=== PATIENT | female | born 1975 | race Caucasian/White ===

== ENCOUNTER → 2017-11-16 12:25 | Outpatient (CLI) | payer BC, MEDICAID, SELFPAY ==
--- NOTE | 2017-11-16 12:28 | HPBI_ITS ---
MAMMOGRAPHY - BILATERAL SCREENING REASON FOR EXAM: Female, 42 years old. Routine annual screening examination. PERTINENT HISTORY: Grandmother with breast cancer. TECHNIQUE: Digital bilateral breast raheem (3D mammographic acquisition) in the CC and MLO projections. 2-D mediolateral oblique (MLO) and craniocaudad (CC) views of both breasts were obtained. CAD: Full Field Digital Mammography with Computer Added Detection was performed. COMPARISON: Comparison is made with prior outside examination dated November 05, 2016. FINDINGS: Breast Composition: The breasts are heterogeneously dense, which may obscure small masses. There are no dominant masses or suspicious calcifications. No other significant abnormalities are identified. There has been no significant change since the prior study. HPBI/SCREENING MAMM (CAD), BILAT IMPRESSION: Stable bilateral screening mammogram. Yearly follow-up mammogram recommended. (A) ASSESSMENT CATEGORY: BIRADS Category 1: Negative. A letter regarding these results will be sent to the patient by the facility within 30 days. Approximately 10% of breast cancers are not detected by mammography. A normal mammogram should not delay biopsy of a clinically suspicious abnormality. [id number] Electronically Signed: Todd Espinosa MD at 14:09 EST Tel [phone], Service support ,
== END ==
PROVIDERS: Family Provider Family Medicine; PCP Family Medicine; Visit Provider Obstetrics & Gynecology
DX: Z12.31 Encounter for screening mammogram for malignant neoplasm of breast (principal)
CPT/HCPCS: 77063; 77067

== ENCOUNTER → 2018-04-21 10:07 | Outpatient (CLI) | payer MEDICAID, SELFPAY ==
--- NOTE | 2018-04-21 10:14 | MRI_ITS ---
STUDY: BILATERAL BREAST MR WITHOUT AND WITH CONTRAST REASON FOR EXAM: Female, 42 years old. Bilateral breast pain. Dense breast tissue. TECHNIQUE: Multi-sequence multi-echo imaging of both breasts was performed with a dedicated breast coil. T1-weighted and T2-weighted images were performed before the administration of contrast. T1-weighted images were also performed after the administration of 7 mL of Gadavist contrast intravenously without complications. COMPARISON: Bilateral mammograms dated November 16, 2017, breast ultrasound dated November 13, 2016 and bilateral mammograms November 05, 2016 FINDINGS: RIGHT BREAST: The breast tissue is heterogeneously dense with minimal background enhancement. There are no abnormal enhancing masses or areas of non-mass enhancement in the right breast. LEFT BREAST: The breast tissue is heterogeneously dense with minimal background enhancement. There are no abnormal enhancing masses or areas of non-mass enhancement in the left breast. There are no enlarged or abnormal lymph nodes. There is no abnormality in the visualized regions of the chest or liver. MRI/Breast w/o and/or W Cont Bilat IMPRESSION: No significant abnormality noted on the bilateral breast MRI study with contrast. Yearly follow-up screening mammogram recommended. CATEGORY: BIRADS Category 2: Benign. A letter regarding these results will be sent to the patient by the facility within 30 days. Electronically Signed: Farzad Hackett MD at 13:08 EDT , Service support ,
== END ==
PROVIDERS: Family Provider Family Medicine; PCP Family Medicine; Visit Provider Obstetrics & Gynecology
DX: N64.4 Mastodynia (principal); Z80.3 Family history of malignant neoplasm of breast
CPT/HCPCS: 77059; A9585; A4216; C8908

== ENCOUNTER → 2018-10-28 15:19 | Outpatient (CLI) | payer MEDICAID, SELFPAY ==
[2017-08-15 22:34] VITALS: BMI 22.4
== END ==
PROVIDERS: Family Provider Family Medicine; PCP Family Medicine; Referring Provider Otolaryngology Otolaryngology/Facial Plastic Surgery; Visit Provider Otolaryngology Otolaryngology/Facial Plastic Surgery
DX: J32.9 Chronic sinusitis, unspecified (principal)
CPT/HCPCS: 87070; 87205

== ENCOUNTER → 2018-11-22 11:09 | Outpatient (CLI) | payer MEDICAID, SELFPAY ==
[2017-08-15 22:34] VITALS: BMI 22.4
--- NOTE | 2018-11-22 11:15 | BI_ITS ---
MAMMOGRAPHY - BILATERAL SCREENING REASON FOR EXAM: Female, 43 years old. Routine annual screening examination. PERTINENT HISTORY: Grandmother with breast cancer. TECHNIQUE: Digital bilateral breast raheem (3D mammographic acquisition) in the CC and MLO projections. 2-D mediolateral oblique (MLO) and craniocaudad (CC) views of both breasts were obtained. CAD: Full Field Digital Mammography with Computer Added Detection was performed. COMPARISON: Comparison is made with prior examination of November 16, 2017 and outside examination dated November 05, 2016. FINDINGS: Breast Composition: The breasts are extremely dense, which lowers the sensitivity of mammography. There are no dominant masses or suspicious calcifications. No other significant abnormalities are identified. There has been no significant change since the prior study. BI/SCREENING MAMM (CAD), BILAT IMPRESSION: Stable bilateral screening mammogram. Yearly follow-up mammogram recommended. (A) ASSESSMENT CATEGORY: BIRADS Category 1: Negative. A letter regarding these results will be sent to the patient by the facility within 30 days. Approximately 10% of breast cancers are not detected by mammography. A normal mammogram should not delay biopsy of a clinically suspicious abnormality. [id number] Electronically Signed: Todd Espinosa MD at 13:19 EST , Service support ,
== END ==
PROVIDERS: Family Provider Family Medicine; PCP Family Medicine; Referring Provider Obstetrics & Gynecology; Visit Provider Obstetrics & Gynecology
DX: Z12.31 Encounter for screening mammogram for malignant neoplasm of breast (principal)
CPT/HCPCS: 77063; 77067

== ENCOUNTER → 2019-11-29 12:55 | Outpatient (CLI) | payer MEDICAID, SELFPAY ==
--- NOTE | 2019-11-29 13:06 | BI_ITS ---
MAMMOGRAPHY - BILATERAL SCREENING REASON FOR EXAM: Female, 44 years old. Routine annual screening examination. PERTINENT HISTORY: Grandmother with breast cancer. TECHNIQUE: Digital bilateral breast destiny (3D mammographic acquisition) in the CC and MLO projections. 2-D mediolateral oblique (MLO) and craniocaudad (CC) views of both breasts were obtained. CAD: Full Field Digital Mammography with Computer Added Detection was performed. COMPARISON: Comparison is made with prior study dated November 22, 2018 and November 16, 2017. FINDINGS: Breast Composition: The breasts are extremely dense, which lowers the sensitivity of mammography. There are no dominant masses or suspicious calcifications. No other significant abnormalities are identified. There has been no significant change since the prior study. BI/SCREEN MAMM (CAD) W/DESTINY BILAT IMPRESSION: Stable bilateral screening mammogram. Yearly follow-up mammogram recommended. (A) ASSESSMENT CATEGORY: BIRADS Category 1: Negative. A letter regarding these results will be sent to the patient by the facility within 30 days. Approximately 10% of breast cancers are not detected by mammography. A normal mammogram should not delay biopsy of a clinically suspicious abnormality. [id number] Electronically Signed: Todd Espinosa, at 14:01 EST , Service support ,
== END ==
PROVIDERS: Family Provider Family Medicine; PCP Family Medicine; Referring Provider Obstetrics & Gynecology; Visit Provider Obstetrics & Gynecology
DX: Z12.31 Encounter for screening mammogram for malignant neoplasm of breast (principal)
CPT/HCPCS: 77063; 77067

== ENCOUNTER 2020-11-25 13:50 | Observation (INO) | payer MEDICAID, SELFPAY ==
[2020-11-25] VITALS (8 sets, daily range): BP systolic 121–154; BP diastolic 72–87; PULSE 61–80; RESP 16–20; TEMP 36.7–36.9; O2SAT 97–99; BMI 25.5; BMI 23.3
--- NOTE | 2020-11-25 13:59 | EKG12_ITS ---
Test Reason : NUMBNESS/TINGLING Blood Pressure : / mmHG Vent. Rate : 059 BPM Atrial Rate : 059 BPM P-R Int : 168 ms QRS Dur : 082 ms QT Int : 426 ms P-R-T Axes : 037 -05 030 degrees QTc Int : 421 ms Sinus bradycardia Otherwise normal ECG Confirmed by JAYY RAMOS, WAI ([id number]), news videotape editor JOANA CESPEDES ([id number]) on 11/27/2020 10:32:51 AM Referred By: DAYAN Confirmed By:WAI HOPE MD
--- NOTE | 2020-11-25 13:59 | CT_ITS ---
STUDY: CT HEAD STROKE PROTOCOL W/O CONTRAST INJECTION REASON FOR EXAM: Female, 45 years old. Neuro deficit, acute, stroke suspected RADIATION DOSAGE (If Supplied By Facility): CTDIvol = ( ) mGy, DLP = ( ) mGycm TECHNIQUE: Transaxial CT imaging of the brain was performed without administration of intravenous contrast material. Individualized dose optimization techniques were used for this CT. COMPARISON: No relevant priors. FINDINGS: Normal soft tissue structures. Normal calvarium. Normal size ventricles and extra-axial spaces for the patient''s age. Normal white matter tracts of the cerebral hemispheres. Normal basal ganglia and thalami. Normal brainstem. Normal cerebellum. There is no intracranial hemorrhage. There are no findings of an acute ischemic infarction. There is minimal opacification of the ethmoid sinuses consistent with a history of sinusitis. CT/STROKE Brain/Head without Cont IMPRESSION: No acute intracranial process. N.B. : The above information has been verbally conveyed by Mica Coombs MD to Jocelyne Cortes MD, on 11/25/2020 14:29:43 (ET). Electronically Signed: Mica Coombs MD at 14:30 EST Tel , Service support ,
--- NOTE | 2020-11-25 13:59 | RAD_ITS ---
STUDY: X-RAY CHEST REASON FOR EXAM: Female, 45 years old. Neuro deficit, acute, stroke suspected TECHNIQUE: Single frontal view of the chest. COMPARISON: 08/15/2017 FINDINGS: There is no new focal consolidation. Normal size heart. Normal mediastinum and kaylah. Normal visualized pulmonary arteries. Normal visualized aortic arch and descending thoracic aorta. Normal visualized thoracic spine. Normal visualized ribs, clavicles, and shoulders. There is no demonstrated abnormality of the visualized soft tissue structures of the upper abdomen. RAD/Chest 1 View IMPRESSION: No acute cardiopulmonary process. Electronically Signed: Mica Coombs MD at 14:26 EST Tel , Service support ,
[2020-11-25 14:00] LABS: Bedside Glucose 89 mg/dL (70-110)
[2020-11-25 14:07] LABS: Absolute Lymphocyte Count 2.42 X10^3/uL (0.83-4.51); Absolute Neutrophil Count 2.5 X10^3/uL (2.0-7.7); Basophil# 0.04 X10^3/uL; Basophil% 0.7 % (0-1); Eosinophil# 0.31 X10^3/uL; Eosinophils% 5.3 % (0-5); Hemoglobin 13.3 g/dL (12.0-15.0); Lymphocyte # 2.42 X10^3/ul (4.0); Lymphocyte % 41.3 % (19-41); Mean Corp Hgb Conc 31.7 g/dL (32-36); Mean Corpuscular Hgb 30.1 pg (27.0-32.0); Mean Platelet Vol. 11.3 fl (6.2-12.0); Monocyte# 0.54 X10^3/uL; Monocyte% 9.2 % (0-10); NRBC Flagged by Analyzer 0 % (0-5); Neutrophil # 2.54 X10^3/uL (2.7-7.7); Neutrophil % 43.3 % (47-70); Platelet Count 227 K/mm3 (150-450); RBC Distribution Width CV 12.9 % (11.6-14.6); RBC Distribution Width SD 44.6 fl (35.1-43.9); Red Blood Count 4.42 M/mm3 (4.2-5.4); White Blood Count 5.9 K/mm3 (4.4-11.0)
[2020-11-25 14:12] LABS: Prothrombin Time (Protime)PT. 12.8 SECONDS (11.7-14.9)
[2020-11-25 14:13] LABS: Partial Thromboplast Time 31.7 Seconds (24.1-36.2)
[2020-11-25 14:39] LABS: Anion Gap 6 (5-15); BUN 13 mg/dL (7-18); BUN/Creat Ratio 15.8 RATIO (10-20); Calcium,Total 9.4 mg/dL (8.5-10.1); Chloride 104 mmol/L (98-107); Creatinine, Serum 0.82 mg/dL (0.55-1.02); EST Glomerular Filtration Rate 80 mL/min (>60); Est Glom Filt Rate - Afr Amer 97 mL/min (>60); Estimated Creatinine Clearance 78.78 ml/min; Glucose 91 mg/dL (74-106); Potassium 4.2 mmol/L (3.5-5.1); Sodium Level 141 mmol/L (136-145)
[2020-11-25] MEDS: Acetaminophen 500 MG Tablet 1000 MG PO (15:23)
--- NOTE | 2020-11-25 15:23 | ED.DCSUM_ITS ---
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 Around 1130 this morning patient suddenly felt that her vi cruz in her right eye was off. Patient called her eye doctor and was seen immediately in the office. Patient had painless vision loss that last for about 5 to 10 minutes. He evaluated her and did not see any signs of embolic disease, acute venous or arterial occlusion and she had a normal retina. While he was there he felt that she had right hemianopsia and patient started to complain of some tingling in her right hand. He was concern for optic neuritis versus stroke. She was then sent to the emergency room by private vehicle to be evaluated immediately. Patient was evaluated immediately upon arrival. Her symptoms have since resolved. Patient denies any other complaints at this time. Past Medical History - Allergies and Home Meds Allergies/Adverse Reactions: Allergies morphine Allergy (Verified 11/25/20 13:58) Other bacitracin [From Neosporin ([id number])] Adverse Reaction (Verified 11/25/20 13:58) Rash metronidazole [From Flagyl] Adverse Reaction (Verified 11/25/20 13:58) Nausea neomycin [From Neosporin ([id number])] Adverse Reaction (Verified 11/25/20 13:58) Rash polymyxin B [From Neosporin ([id number])] Adverse Reaction (Verified 11/25/20 13:58) Rash Primary Care Physician: Tanner Kramer MD [Primary Care Provider] - Past Medical History: - - 6-year-old myalgia, rheumatoid arthritis, anxiety Surgical History: noncontributory, hysterectomy Smoking Status: Never smoker - Family History Maternal Family History: Reports: No pertinent history Review of Systems General: Denies: Chills, Fever, Sweats Eyes: Reports: Visual changes - right, Blurred vision - right. Denies: Diplopia ENT: Denies: Rhinorrhea, Sore throat Cardiovascular: Denies: Chest pain, Palpitations Respiratory: Denies: Dyspnea, Cough, Dyspnea on exertion Gastrointestinal: Denies: Abdominal pain, Nausea, Vomiting, Diarrhea, Melena, Hematochezia Genitourinary: Denies: Dysuria, Hematuria, Frequency Musculoskeletal: Denies: Back pain, Extremity Pain Skin: Denies: Rash, Wounds Neurological: Reports: Parasthesia - Right hand. Denies: Headache, Weakness, Numbness STROKE Vital Signs/Narrative: Vital Signs Temp Pulse Resp BP Pulse Ox 11/25/20 14:30 62 16 121/72 H 99 11/25/20 13:51 98.4 F 69 20 H 154/87 H 98 Inital Vital Signs reviewed: Yes General: Well nourished, Well developed Head: Normocephalic, Atraumatic Eyes: Perrl, EOMI, - - Normal vision at all ma. ENT: Moist mucous membranes, No rhinorrhea Neck: Supple, Nontender Cardiovascular: Regular rate, Regular rhythm, No murmurs Respiratory: No distress, CTA bilaterally, Chest nontender Abdomen: Soft, Nontender, Nondistended, Normal bowel sounds Back: Nontender, Normal Inspection Extremities: Nontender, No edema Skin: Normal color, No rash Neurological: Alert, Oriented x3, Cranial nerves II-XII grossly intact, Normal Strength, Normal Sensation, - - NIH equals 0. Negative for: Parasthesia, Weakness, Left side facial droop, Right side facial droop Psychological: Normal affect Diagnostic/Tx/Re-eval Clinical Impression(s) from Imaging Studies Brain CT 11/25/20 13:59 IMPRESSION: No acute intracranial process. N.B. : The above information has been verbally conveyed by Mica Coombs MD to Jocelyne Cortes MD, on 11/25/2020 14:29:43 (ET). Electronically Signed: Mica Coombs MD at 14:30 EST Tel , Service support , ADDENDUM: 11/25/20 1437 IMPRESSION: No acute intracranial process. N.B. : The above information has been verbally conveyed by Mica Coombs MD to Jocelyne Cortes MD, on 11/25/2020 14:29:43 (ET). Electronically Signed: Mica Coombs MD at 14:30 EST Tel , Service support , Chest X-Ray 11/25/20 13:59 IMPRESSION: No acute cardiopulmonary process. Electronically Signed: Mica Coombs MD at 14:26 EST Tel , Service support , Laboratory Data 11/25/20 11/25/20 11/25/20 13:55 13:55 13:55 WBC 5.9 RBC 4.42 Hgb 13.3 Hct 42.0 MCV 95.0 MCH 30.1 MCHC 31.7 L RDW Std Deviation 44.6 H RDW Coeff of Milla 12.9 Plt Count 227 MPV 11.3 Immature Gran % (Auto) 0.200 Neut % (Auto) 43.3 L Lymph % (Auto) 41.3 H [place] % (Auto) 9.2 Eos % (Auto) 5.3 H Baso % (Auto) 0.7 Absolute Neuts (auto) 2.5 Absolute Lymphs (auto) 2.42 Nucleated RBC % 0 PT 12.8 INR 1.0 APTT 31.7 Sodium 141 Potassium 4.2 Chloride 104 Carbon Dioxide 31.0 Anion Gap 6 BUN 13 Creatinine 0.82 Estim Creat Clear Calc 78.78 Est GFR (MDRD) Af Amer 97 Est GFR (MDRD) Non-Af 80 BUN/Creatinine Ratio 15.8 Glucose 91 Calcium 9.4 Troponin I < 0.015 POC Glucose 11/25/20 13:56 WBC RBC Hgb Hct MCV MCH MCHC RDW Std Deviation RDW Coeff of Milla Plt Count MPV Immature Gran % (Auto) Neut % (Auto) Lymph % (Auto) [place] % (Auto) Eos % (Auto) Baso % (Auto) Absolute Neuts (auto) Absolute Lymphs (auto) Nucleated RBC % PT INR APTT Sodium Potassium Chloride Carbon Dioxide Anion Gap BUN Creatinine Estim Creat Clear Calc Est GFR (MDRD) Af Amer Est GFR (MDRD) Non-Af BUN/Creatinine Ratio Glucose Calcium Troponin I POC Glucose 89 Chest X-Ray - ED: 1 View, Read by ED Physician, Read by Radiologist, No Acute Disease - Rhythm Strip Rhythm Strip: Sinus Rhythm Rate: 59 Ectopy: None - EKG Initial EKG Interpretation: Sinus Rhythm, - - Sinus bradycardia rate of 59 Normal axis Normal intervals Normal ST segments - Medical Decision Making Stroke Team Activated: No - NIH equals 0 Patient is evaluated for sudden onset of vision changes. She has associated paresthesias. Her symptoms resolved upon my evaluation. Patient is evaluated for stroke however stroke alert is not called given that her symptoms have r esolved. Patient is on immunosuppressants however does not have significant stroke risk factors. I differential also includes MS. Patient work-up is largely negative the ER. She will be admitted for further neurologic evaluation and likely MRI tomorrow. Patient is agreeable this plan of care. ED Disposition - Plan for ED Patient: Disposition: Home or Assisted Living Diagnosis: TIA (transient ischemic attack), Vision changes Referrals: Tanner Kramer MD [Primary Care Provider] -
[2020-11-25] MEDS: Aspirin 325 MG Tablet PO (15:24)
--- NOTE | 2020-11-25 15:50 | PCM.HP.STD ---
History of Present Illness Date of Admission: 11/25/20 Ms Grissom is a 45 year old WF with a past medical history of IBS, rheumatoid arthritis, diverticulosis, severe anxiety, migraine headaches, and possible TIA remotely noted in a previous chart who presented [facility] on 11/25/2020 complaining of visual changes in the right eye and right hand paresthesias. 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 She was seen immediately in the office today by her realtime court reporter. The visual loss was painless and lasted for approximately 5 to 10 minutes she states while she was filling out the paperwork and the realtime court reporter office she noticed she had some right hand paresthesias but no weakness. The realtime court reporter called the ER physician and noted that he did not see any signs of embolic disease acute venous or arterial occlusion and had a normal retina but he was concerned that she had a right hemianopsia and sent her to the emergency department. He was concerned about optic neuritis versus stroke/TIA. Upon arrival her symptoms have completely resolved. Her vital signs are stable in the emergency department. Her CBC was unremarkable. Coags were within normal limits. Her BMP was within normal limits and her troponin was negative. CT of her head showed no acute or cranial process. Her chest x-ray showed no acute disease. Her EKG was sinus bradycardia with no ST-T wave changes consistent with acute ischemia. Patient is now only complaining of a headache and some neck pain. She states she has intermittent migraines but feels that this is more of a tension headache. She took Advil earlier today and was just given Tylenol. She will be admitted to PCU as an observation for further stroke work-up. Past Medical History Past Medical History (Chronic Problems): Chronic Problems IBS (irritable bowel syndrome) (Chronic) Allergies morphine Allergy (Verified 11/25/20 13:58) Other bacitracin [From Neosporin ([id number])] Adverse Reaction (Verified 11/25/20 13:58) Rash metronidazole [From Flagyl] Adverse Reaction (Verified 11/25/20 13:58) Nausea neomycin [From Neosporin ([id number])] Adverse Reaction (Verified 11/25/20 13:58) Rash polymyxin B [From Neosporin ([id number])] Adverse Reaction (Verified 11/25/20 13:58) Rash Home Medications: Ambulatory Orders Medication Instructions Recorded ALPRAZolam [Xanax] 0.5 mg PO TID PRN 04/07/16 Acyclovir [Zovirax] 400 mg PO DAILY PRN 04/07/16 Estradiol [Estrace (G)] 1 mg PO DAILY 04/07/16 Loperamide [Imodium] 4 mg PO DAILY 04/07/16 Cholecalciferol (Vitamin D3) 25 mcg PO DAILY 11/25/20 [Vitamin D3] Colestipol HCl 1 gm PO BID 11/25/20 Leflunomide [Arava] 10 mg PO DAILY 11/25/20 Surgical History: noncontributory, hysterectomy Psychiatric History: Anxiety 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 Denies: Cataracts, Conjunctivae Inflammation, Double vision, Drainage, Eyelid Inflammation, Pain, Redness HEENT: Reports: Head Aches. Denies: Difficulty Hearing, Difficulty Swallowing, Eye Pain, Nasal bleeding, Nasal Congestion, Post Nasal Drip, Sinus Congestion, Sinus Drainage, Sore Throat, Visual Changes Cardiovascular: Denies: Chest Pain, Claudication, Edema, Heaviness, Light Headedness, Orthopnea, Palpitations, Paroxysmal Noc. Dyspnea, Syncope Respiratory: Denies: Cough, Hemoptysis, Pleuritic Pain, Shortness of Breath, Shortness of breath at rest, Shortness of breath upon exertion, Sputum production, Wheezing Gastrointestinal: Reports: Diarrhea - Intermittent chronic. Denies: Abdominal Pain, Constipation, Dyspepsia, Hematemesis, Hematochezia, Nausea, Melena, Vomiting Genitourinary: Denies: Dysuria, Frequency, Hematuria, Hesitancy, Incontinence, Nocturia, Retention, Urgency Musculoskeletal: Reports: Joint stiffness, Neck Pain. Denies: Back Pain, Joint Pain, Joint swelling, Joint Tenderness, Leg Pain, Muscle pain Skin: Denies: Dryness, Jaundice, Lesions, Pruritis, Rash, Skin Changes, Wounds Neurological: Reports: Blurred vision, Headaches, Numbness - Right hand paresthesia-now resolved. Denies: Balance problems, Double vision, Change in Speech, Slurred speech, Confusion, Difficulty swallowing, Focal weakness, Incoordination, Tingling, Tremor, Seizures Psychiatric: Reports: Anxiety. Denies: Depression Endocrine: Denies: Change in Body Habitus, Heat/ Cold Intolerance, Polydipsia, Polyuria Hematologic/ Lymphatic: Denies: Adenopathy, Anemia, Easy Bruising, Easy Bleeding, Petechiae, Purpura VTE Information - Inpt Only VTE Present on Admission: No VTE Mechan Device Prophylaxis: SCD's VTE Pharm Prophylaxis ordered?: Yes - Physical Exam Vitals/I&O's: Vital Signs Temp Pulse Resp BP Pulse Ox 98.0 F 80 18 131/76 H 99 11/25/20 15:25 11/25/20 15:25 11/25/20 15:25 11/25/20 15:11/25/20 14:30 Oxygen Delivery Method Room Air Weight: 69.6 kg Body Mass Index (BMI) 25.5 Finger Stick Blood Glucose 89 General: Alert, Oriented x3, Cooperative, No apparent distress, Well developed, Well nourished HEENT: Atraumatic, PERRLA, EOMI, Normocephalic, EAC Clear Oral: Moist Mucosa, No Gingival or Mucosal Lesions/ Ulcerations, - - No thrush, Mallampati 2 Neck: Supple, No JVD, Negative Carotid Bruits, Negative Hepatojugular Reflux, No Nodes, No Nuchal Rigidity, Trachea Midline, Thyroid Normal Size and Texture Lungs: Clear to auscultation, Normal air movement, No rhonchi, No wheeze, No rales Cardiovascular: Regular rate, Regular Rhythm, Normal S2, No murmurs, No Ectopic Activity, No rub noted, No Gallop Abdomen: Bowel Sounds Present, Soft, Non Tender, Non-Distended, No Hepato-splenomegaly, No hernias noted Extremities: No clubbing, No cyanosis, No edema, Capillary Refill Less than 3 Seconds, Peripheral Pulses Normal Skin: No rashes, No breakdown Musculoskeletal: No Tenderness to Palpation of Joints or Extremities, No Muscle Wasting, Arthritic Changes Lymphatic: No Cervical, Supraclavicular, or Inguinal Adenopathy Neurological: Cranial nerves II-XII grossly intact, Deep Tendon Reflexes 2+/4 and Symmetrical, Neuro grossly intact, Motor Exam 5/5 strength throughout, Muscle tone normal, Sensory exam intact to light touch and pain, Coordination normal Psych/Mental Status: Normal Affect, Appropriate, Anxious - Mildly Laboratory Results 11/25/20 13:55: WBC 5.9, RBC 4.42, Hgb 13.3, Hct 42.0, MCV 95.0, MCH 30.1, MCHC 31.7 L, RDW Std Deviation 44.6 H, RDW Coeff of Milla 12.9, Plt Count 227, MPV 11.3, Immature Gran % (Auto) 0.200, Neut % (Auto) 43.3 L, Lymph % (Auto) 41.3 H, [place] % (Auto) 9.2, Eos % (Auto) 5.3 H, Baso % (Auto) 0.7, Absolute Neuts (auto) 2.5, Absolute Lymphs (auto) 2.42, Nucleated RBC % 0 11/25/20 13:55: PT 12.8, INR 1.0, APTT 31.7 11/25/20 13:55: Sodium 141, Potassium 4.2, Chloride 104, Carbon Dioxide 31.0, Anion Gap 6, BUN 13, Creatinine 0.82, Estim Creat Clear Calc 78.78, Est GFR (MDRD) Af Amer 97, Est GFR (MDRD) Non-Af 80, BUN/Creatinine Ratio 15.8, Glucose 91, Calcium 9.4, Troponin I < 0.015 11/25/20 13:56: POC Glucose 89 Assessment/Plan All Active Problems Anxiety (Acute) TIA (transient ischemic attack) (Acute) Chest pain (Acute) Nausea & vomiting (Acute) Visual field change/right hand paresthesia (differential--> stroke/TIA, MS, migraine with aura) -NIH per stroke protocol -CT head was unremarkable -CTA is pending -Check lipids -Baby aspirin daily -Atorvastatin 80 mg nightly -MRI in a.m. with 1 mg Ativan prior -Echocardiogram -Consider SOC consultation in a.m. Headache -Description it sounds like a tension headache -Patient took NSAIDs earlier today and was just given Tylenol in the emergency department -We will try K pad to neck to see if this alleviates her symptoms History of rheumatoid arthritis -States it primarily affects her hands -Continue Arava Remote hysterectomy -Hold estradiol while patient undergoing stroke work-up IBS -Continue Imodium -Continue colestipol DVT prophylaxis -Lovenox daily CODE STATUS -Full code Inpatient E&M: 65238 Init Hosp L3
--- NOTE | 2020-11-25 16:03 | CT_ITS ---
STUDY: CTA HEAD AND NECK WITH CONTRAST REASON FOR EXAM: Female, 45 years old. Neuro deficit, acute, stroke suspected RADIATION DOSAGE (If Supplied By Facility): CTDIvol = ( 17.88 ) mGy, DLP = ( 574.65 ) mGycm TECHNIQUE: CT angiography was performed with a multi-detector CT scanner. Data acquisition was obtained from the skull base through the vertex following intravenous administration of IV 100mL Isovue-370. MIP images were reconstructed from the axial data set. Post-processing of the angiographic images was performed, with multiplanar reformation and 3D reconstruction. Individualized dose optimization techniques were used for this CT. COMPARISON: Noncontrast CT of the head dated 11/25/2020. FINDINGS: Normal bilateral petrous carotid arteries. Normal right cavernous carotid artery with a normal supraclinoid bifurcation. Normal left cavernous carotid artery with a normal supraclinoid bifurcation. Normal right A1 segments of the anterior cerebral artery. Normal left A1 segments of the anterior cerebral artery. Normal intact anterior communicating artery (ACOM). Normal bilateral A2 segments of the anterior cerebral arteries. Normal right M1 and M2 segments of the middle cerebral arteries, with a normal M1 bifurcation. Normal left M1 and M2 segments of the middle cerebral arteries, with a normal M1 bifurcation. Normal right posterior communicating artery (PCOM). Normal left posterior communicating artery (PCOM). Normal bilateral vertebral arteries. Normal basilar artery with a normal basilar bifurcation. The visualized bilateral superior cerebellar (SCA) arteries are normal. Normal bilateral P1, P2 and visualized P3 segments of the posterior cerebral arteries. There is no demonstrated aneurysm of the [place]. There is no demonstrated abnormality of the visualized brain. AORTIC ARCH: Normal visualized aortic arch. Normal origins of the brachiocephalic, left common carotid, and left subclavian arteries. RIGHT CAROTID ARTERIES: Normal right common carotid artery (CCA). Normal right common carotid bulb. Normal origin of the right internal carotid (ICA) artery without a hemodynamically significant stenosis. Normal visualized cervical portion of the right internal carotid artery. Normal origin of the right external carotid artery (ECA). LEFT CAROTID ARTERIES: Normal left common carotid artery (CCA). Normal left common carotid bulb. Normal origin of the left internal carotid (ICA) artery without a hemodynamically significant stenosis. Normal visualized cervical portion of the left internal carotid artery. Normal origin of the left external carotid artery (ECA). VERTEBRAL ARTERIES: Normal bilateral vertebral arteries. CT/STROKE CTA Head AND Neck W/Con IMPRESSION: Within normal limits CTA Head and neck with contrast. N.B. : The above information has been verbally conveyed by Mica Coombs MD to MARIA ESTHER BROCK DO on 11/25/2020 17:40:32 (ET). Electronically Signed: Mica Coombs MD at 17:41 EST Tel , Service support ,
--- NOTE | 2020-11-25 16:03 | ECHOD_ITS ---
Reason For Study: TIA/CVA Procedure This was a 2D Doppler, Color Flow transthoracic echocardiogram. Exam performed portable in patient room. Left Ventricle Normal LV size. Left ventricular systolic function is normal. The estimated ejection fraction is 65 %. No regional wall motion abnormalities noted. Right Ventricle Normal RV size. Normal systolic function. Atria Normal left atrium. Normal right atrium. Patent foramen ovale. Mitral Valve Normal mitral valve. Mild (1+) mitral valve insufficiency. Tricuspid Valve Normal tricuspid valve. Aortic Valve Normal aortic valve. Trisinus/trileaflet aortic valve. Pulmonic Valve The pulmonic valve is not well visualized. Great Vessels Normal aortic root. The pulmonary artery is normal size. Normal inferior vena cava. Pericardium/Pleural No pericardial effusion. Medication Performed a rapid injection of agitated mix of 9 cc saline and 1cc air to assess for atrial septal defect. MMode/2D Measurements & Calculations LVIDd: 3.7 cm IVSd: 0.81 cm Ao root diam: 2.7 cm LVIDs: 2.2 cm LVPWd: 0.95 cm RVDd: 2.5 cm FS: 40.3 % LAV(MOD-bp): 36.5 ml LA A4 area: 14.9 cm2 RA A4 area: 12.9 cm2 LAV(MOD-bp) Indexed: 21.0 ml/m2 LAV(MOD-sp2): 31.1 ml LAV(MOD-sp4): 31.9 ml Time Measurements MV dec time: 0.25 sec Doppler Measurements & Calculations MV E max brandon: 92.2 cm/sec Lat Peak E' Brandon: 16.5 cm/sec Med Peak E' Brandon: 13.9 cm/sec MV A max brandon: 48.4 cm/sec E/E' lat: 5.6 E/E' med: 6.6 MV E/A: 1.9 Ao V2 max: 136.4 cm/sec LV V1 max: 107.5 cm/sec PA V2 max: 93.7 cm/sec Ao max P.4 mmHg LV V1 max P.6 mmHg Interpretation Summary Normal LV size. Left ventricular systolic function is normal. The estimated ejection fraction is 65 %. Patent foramen ovale. Ordering Physician: Selam Chu Referring Physician: Tanner Kramer Performed By: Mari Barber, JENAE, RVT
[2020-11-25] MEDS: Ondansetron 4 MG/2 ML Vial IV (16:53)
[2020-11-25] MEDS: Atorvastatin Calcium 80 MG Tablet PO (21:16)
[2020-11-26] VITALS (8 sets, daily range): BP systolic 107–131; BP diastolic 62–88; PULSE 59–87; RESP 14–18; TEMP 36.1–36.8; O2SAT 94–100
[2020-11-26 05:52] LABS: Absolute Lymphocyte Count 1.88 X10^3/uL (0.83-4.51); Absolute Neutrophil Count 1.6 X10^3/uL (2.0-7.7); Basophil# 0.03 X10^3/uL; Basophil% 0.7 % (0-1); Eosinophil# 0.29 X10^3/uL; Eosinophils% 6.8 % (0-5); Hematocrit 40.1 % (37-47); Hemoglobin 12.3 g/dL (12.0-15.0); Lymphocyte # 1.88 X10^3/ul (4.0); Lymphocyte % 44.3 % (19-41); Mean Corp Hgb Conc 30.7 g/dL (32-36); Mean Corpuscular Hgb 28.7 pg (27.0-32.0); Mean Corpuscular Volume 93.7 fL (81-99); Mean Platelet Vol. 11.4 fl (6.2-12.0); Monocyte# 0.43 X10^3/uL; Monocyte% 10.1 % (0-10); NRBC Flagged by Analyzer 0 % (0-5); Neutrophil % 37.9 % (47-70); Platelet Count 189 K/mm3 (150-450); RBC Distribution Width CV 12.7 % (11.6-14.6); RBC Distribution Width SD 43.8 fl (35.1-43.9); Red Blood Count 4.28 M/mm3 (4.2-5.4); White Blood Count 4.2 K/mm3 (4.4-11.0)
[2020-11-26 06:31] LABS: AST(SGOT) 16 U/L (15-37); Alanine Aminotransfer ALT/SGPT 20 U/L (13-56); Albumin, Serum 3.2 g/dL (3.2-5.0); Alkaline Phosphatase 71 U/L (45-117); Anion Gap 6 (5-15); BUN 14 mg/dL (7-18); BUN/Creat Ratio 20.1 RATIO (10-20); Calcium,Total 8.5 mg/dL (8.5-10.1); Chloride 108 mmol/L (98-107); Cholesterol 163 mg/dL (200); EST Glomerular Filtration Rate 97 mL/min (>60); Est Glom Filt Rate - Afr Amer 118 mL/min (>60); Estimated Creatinine Clearance 99.73 ml/min; Globulin 3.2 g/dL (2.2-4.2); Glucose 88 mg/dL (74-106); High Density Lipoprotein 84 mg/dL; Phosphorus 3.3 mg/dL (2.5-4.9); Potassium 3.8 mmol/L (3.5-5.1); Protein, Total 6.4 g/dL (6.4-8.2); Sodium Level 141 mmol/L (136-145); Thyroid Stim Hormone (TSH) 2.79 uIU/mL (0.358-3.74); Triglycerides 71 mg/dL; Very Low Density Lipoprotein 14 mg/dL (5-40)
[2020-11-26] MEDS: Loperamide 2 MG Capsule 4 MG PO (08:14)
[2020-11-26] MEDS: Aspirin 81 MG TAB.CHEW PO (08:14)
[2020-11-26] MEDS: LORazepam 1 MG Tablet PO (08:14)
[2020-11-26] MEDS: Leflunomide 10 MG TABLET PO (08:14)
--- NOTE | 2020-11-26 08:30 | MRI_ITS ---
STUDY: MRI BRAIN WITHOUT CONTRAST REASON FOR EXAM: Female, 45 years old. stroke TECHNIQUE: Standardized multiplanar fat and water weighted pulse sequences were obtained. COMPARISON: CT 11/17/2020 FINDINGS: Normal size of the ventricles and extra-axial spaces for the patient''s age. Normal white matter tracts of the supratentorial brain. There is no evidence for recent intracranial ischemia or other cause of cytotoxic edema on diffusion weighted imaging (DWI). Normal T2* images of the brain without demonstrated susceptibility artifact. There is no demonstrated hemosiderin stain. Normal bilateral basal ganglia. Normal thalami. There is no extra-axial fluid accumulation. Normal flow voids within the major intracranial circulation suggesting patency by spin echo criteria. Normal sella turcica, pituitary gland, infundibular stalk, optic chiasm and hypothalamus. Normal tectal plate and pineal gland. Normal midbrain, bess and medulla. Normal cerebellum. Normal basal cisterns. Normal bilateral temporal bones. Normal bilateral internal auditory canals. No demonstrated orbital abnormality, within the constraints of a routine brain study. Normal visualized paranasal sinuses. Normal calvarium and skull base. Normal visualized soft tissue structures. Normal visualized upper cervical spine. MRI/Brain without Contrast IMPRESSION: Normal unenhanced MRI of the brain. Electronically Signed: Jose Carlos Saenz MD at 10:36 EST Tel , Service support ,
--- NOTE | 2020-11-26 09:05 | NURSING ---
PT NOT ABLE TO TOLERATE CAGE IN MRI. ARELIS IZAGUIRRE.
--- NOTE | 2020-11-26 09:21 | NURSING ---
PER DR INFANTE, PT DOES NOT NEED TO COMPLETE MRI IF SHE CANNOT TOLERATE IT. HOWEVER, WHEN INFORMED OF THIS, THE PATIENT SAID SHE WOULD LIKE TO TRY TO DO MUCH SHE CAN.
--- NOTE | 2020-11-26 11:32 | PCM.DC ---
- Discharge Diagnoses Current Active Problems: Current Active and Chronic Problems Vision changes (Acute) TIA (transient ischemic attack) (Acute) You will use the following diet at home:: No restrictions Discharge Activity: Return to Normal Activity Return to work on:: 11/27/20 May shower in (days): 0 May resume sexual activity in: No Restrictions, 10-14 days Weight Bearing Status: Full weight bearing Lifting Restrictions: None Call your doctor if you observe: Numbness or Tingling, Dizziness, Fainting spells, Chest pain, Increased palpitations (irregular heartbeat) Allergies/Adverse Reactions: Allergies morphine Allergy (Verified 11/25/20 13:58) Other bacitracin [From Neosporin ([id number])] Adverse Reaction (Verified 11/25/20 13:58) Rash metronidazole [From Flagyl] Adverse Reaction (Verified 11/25/20 13:58) Nausea neomycin [From Neosporin ([id number])] Adverse Reaction (Verified 11/25/20 13:58) Rash polymyxin B [From Neosporin ([id number])] Adverse Reaction (Verified 11/25/20 13:58) Rash Medications to take at Discharge ALPRAZolam [Xanax] 0.5 mg PO TID PRN 04/07/16 Acyclovir [Zovirax] 400 mg PO DAILY PRN 04/07/16 Estradiol [Estrace (G)] 1 mg PO DAILY 04/07/16 Loperamide [Imodium] 4 mg PO DAILY 04/07/16 Cholecalciferol (Vitamin D3) [Vitamin D3] 25 mcg PO DAILY 11/25/20 Colestipol HCl 1 gm PO BID 11/25/20 Leflunomide [Arava] 10 mg PO DAILY 11/25/20 Aspirin [Aspirin, Baby] 81 mg PO DAILY@0800 #30 tab.chew 11/26/20 Atorvastatin Calcium [Lipitor] 80 mg PO QHS #30 tab 11/26/20 The following prescriptions were given: Aspirin [Aspirin, Baby] 81 mg PO DAILY@0800 #30 tab.chew Transmission Status: Received by [facility] Atorvastatin Calcium [Lipitor] 80 mg PO QHS #30 tab Transmission Status: Received by [facility] Primary Care Physician: Tanner Kramer MD [Primary Care Provider] - Please follow up with your Primary Care Physician in: Within the next week. Test Results: Test results from this visit will be discussed in further detail at your follow-up appointment, if applicable. Please Follow Up With: Pedro Boggs MD When: Within the next two weeks Please Follow Up With: [facility] - [phone] When: Call for appointment. Proposed Discharge Date: 11/26/20
--- NOTE | 2020-11-26 11:55 | DS.PCM_ITS ---
<Kamaljit Adams - Last Filed: 11/26/20 12:36> Discharge Date and Diagnosis - Problem List Patient Problems: Active and Suspected Problems Vision changes (Acute) TIA (transient ischemic attack) (Acute) Date of Admission: 11/25/20 Date of Discharge: 11/26/20 - Primary Discharge Diagnosis Acute Problems: Active Problems 1) Vision changes/right hand paresthesia (Stroke/TIA rule out) 2) Heachache 3) Anxiety 4) Nausea & Vomiting 5) Rheumatoid arthritis 6) Remote hysterectomy 7) IBS - Secondary Discharge Diagnosis Chronic Problems: Chronic Problems IBS (irritable bowel syndrome) (Chronic) Hospital Course and Treatment Imaging Results: Diagnostic Data Brain CT 11/25/20 13:59 IMPRESSION: No acute intracranial process. N.B. : The above information has been verbally conveyed by Mica Coombs MD to Jocelyne Cortes MD, on 11/25/2020 14:29:43 (ET). Electronically Signed: Mica Coombs MD at 14:30 EST Tel , Service support , ADDENDUM: 11/25/20 1437 IMPRESSION: No acute intracranial process. N.B. : The above information has been verbally conveyed by Mica Coombs MD to Jocelyne Cortse MD, on 11/25/2020 14:29:43 (ET). Electronically Signed: Mica Coombs MD at 14:30 EST Tel , Service support , Chest X-Ray 11/25/20 13:59 IMPRESSION: No acute cardiopulmonary process. Electronically Signed: Mica Coombs MD at 14:26 EST Tel , Service support , Head/Neck CTA 11/25/20 16:03 IMPRESSION: Within normal limits CTA Head and neck with contrast. N.B. : The above information has been verbally conveyed by Mica Coombs MD to MARIA ESTHER BROCK DO, on 11/25/2020 17:40:32 (ET). Electronically Signed: Mica Coombs MD at 17:41 EST Tel , Service support , ADDENDUM: 11/25/20 1748 IMPRESSION: Within normal limits CTA Head and neck with contrast. N.B. : The above information has been verbally conveyed by Mica Coombs MD to MARIA ESTHER BROCK DO, on 11/25/2020 17:40:32 (ET). Electronically Signed: Mica Coombs MD at 17:41 EST Tel , Service support , Brain MRI 11/26/20 08:30 IMPRESSION: Normal unenhanced MRI of the brain. Electronically Signed: Jose Carlos Saenz MD at 10:36 EST Tel , Service support , Operations: None Procedures: 2-D Echocardiogram Summary of Care Provided: The patient is a 45 year old F who was admitted on 11/25 due to vision changes and right hand paresthesias. 1) Vision changes/right hand paresthesia (Stroke/TIA rule out) Assessment - CT head was unremarkable - CTA was unremarkable - MRI was unremarkable - Echocardiogram pending. Will be reviewed prior to discharge. Plan - Baby aspirin daily - Atorvastation 40mg daily 2) Heachache Assessment - Possible tension headache - Symtpoms resolved after management with Tylenol in the ED and K pad on the floor Plan - Follow up with outpatient provider 3) Anxiety Assessment - Manages with outpatient provider Plan - Continue to manage outpatient 4) Nausea & Vomiting Assessment - Reported nausea on admission from ED - Given Zofran on the floor Plan - Resolved 5) Rheumatoid arthritis Assessment - Primarily affects hands - Well managed on Arava Plan - Continue outpatient management 6) Remote hysterectomy Assessment - Hold estradiol while patient undergoes stroke work up Plan - Follow up with OBGYN as directed 7) IBS Assessment - Manages outpatient with Imodium & Colestipol Plan - Continue outpatient management Patient was seen by Kamaljit Adams PA-C with the supervision of Dr. Hall Patient Problems: Active and Suspected Problems Vision changes (Acute) TIA (transient ischemic attack) (Acute) - Physical Exam Vitals/I&O's: Vital Signs Temp Pulse Resp BP Pulse Ox 97.0 F L 64 16 131/71 H 94 11/26/20 08:19 11/26/20 09:42 11/26/20 09:42 11/26/20 09:42 11/26/20 09:42 Oxygen Delivery Method Room Air Weight: 148 lb 12.992 oz Body Mass Index (BMI) 23.3 Finger Stick Blood Glucose 89 Intake and Output for Last 24 Hours 11/24/20 11/25/20 11/26/20 23:59 23:59 23:59 Intake Total 240 / 240 Balance 240 / 240 General: Alert, Oriented x3, Cooperative HEENT: Atraumatic, PERRLA, EOMI, Normocephalic Neck: Supple, No JVD, Negative Carotid Bruits Lungs: Clear to auscultation, Normal air movement Cardiovascular: Regular rate, No murmurs Abdomen: Bowel Sounds Present, Soft, Non Tender Extremities: No edema, Capillary Refill Less than 3 Seconds Skin: No rashes, No breakdown Musculoskeletal: No Tenderness to Palpation of Joints or Extremities Neurological: Cranial nerves II-XII grossly intact Psych/Mental Status: Normal Affect, Appropriate Laboratory Results 11/25/20 13:55: WBC 5.9, RBC 4.42, Hgb 13.3, Hct 42.0, MCV 95.0, MCH 30.1, MCHC 31.7 L, RDW Std Deviation 44.6 H, RDW Coeff of Milla 12.9, Plt Count 227, MPV 11.3, Immature Gran % (Auto) 0.200, Neut % (Auto) 43.3 L, Lymph % (Auto) 41.3 H, Butts % (Auto) 9.2, Eos % (Auto) 5.3 H, Baso % (Auto) 0.7, Absolute Neuts (auto) 2.5, Absolute Lymphs (auto) 2.42, Nucleated RBC % 0 11/25/20 13:55: PT 12.8, INR 1.0, APTT 31.7 11/25/20 13:55: Sodium 141, Potassium 4.2, Chloride 104, Carbon Dioxide 31.0, Anion Gap 6, BUN 13, Creatinine 0.82, Estim Creat Clear Calc 78.78, Est GFR (MDRD) Af Amer 97, Est GFR (MDRD) Non-Af 80, BUN/Creatinine Ratio 15.8, Glucose 91, Calcium 9.4, Troponin I < 0.015 11/25/20 13:56: POC Glucose 89 11/25/20 16:23: Troponin I < 0.015 11/26/20 05:44: WBC 4.2 L, RBC 4.28, Hgb 12.3, Hct 40.1, MCV 93.7, MCH 28.7, MCHC 30.7 L, RDW Std Deviation 43.8, RDW Coeff of Milla 12.7, Plt Count 189, MPV 11.4, Immature Gran % (Auto) 0.200, Neut % (Auto) 37.9 L, Lymph % (Auto) 44.3 H, Butts % (Auto) 10.1 H, Eos % (Auto) 6.8 H, Baso % (Auto) 0.7, Absolute Neuts (auto) 1.6 L, Absolute Lymphs (auto) 1.88, Nucleated RBC % 0 11/26/20 05:44: Sodium 141, Potassium 3.8, Chloride 108 H, Carbon Dioxide 27.0, Anion Gap 6, BUN 14, Creatinine 0.70, Estim Creat Clear Calc 99.73, Est GFR (MDRD) Af Amer 118, Est GFR (MDRD) Non-Af 97, BUN/Creatinine Ratio 20.1 H, Glucose 88, Calcium 8.5, Phosphorus 3.3, Magnesium 2.0, Total Bilirubin 0.30, AST 16, ALT 20, Alkaline Phosphatase 71, Total Protein 6.4, Albumin 3.2, Globulin 3.2, Albumin/Globulin Ratio 1.0, Triglycerides 71, Cholesterol 163, LDL Cholesterol 65, VLDL Cholesterol 14, HDL Cholesterol 84, TSH 2.79 Current Medications Acetaminophen (Acetaminophen 325 Mg Tablet) 650 mg PO Q6H PRN PRN PRN Reason: Pain Score 1-10/Temp > 100.7 F Al Hydroxide/Mg Hydroxide (Mag Hydrox/Al Hydrox/Simeth 30 Ml Udc) 30 ml PO Q6H PRN PRN PRN Reason: Gastric Burning Alprazolam (Alprazolam 0.5 Mg Tablet) 0.5 mg PO TID PRN PRN Reason: ANXIETY Aspirin (Aspirin 81 Mg Tab.Chew) 81 mg PO DAILY@0800 [facility] Last Admin: 11/26/20 08:14 Dose: 81 mg Documented by: Atorvastatin Calcium (Atorvastatin Calcium 80 Mg Tablet) 80 mg PO QHS [facility] Last Admin: 11/25/20 21:16 Dose: 80 mg Documented by: Colestipol HCl (Colestipol Hcl 1 Gm Tablet) 1 gm PO BID@0700,1600 [facility] Last Admin: 11/26/20 05:06 Dose: Not Given Documented by: Enoxaparin Sodium (Enoxaparin 40 Mg/0.4 Ml Syringe) 40 mg SC DAILY [facility] Last Admin: 11/26/20 09:46 Dose: Not Given Documented by: Hydralazine HCl (Hydralazine 20 Mg/Ml Vial) 5 mg IV Q30M PRN PRN Reason: to maintain BP goals Labetalol HCl (Labetalol (Prefilled) 20 Mg/4 Ml) 10 - 20 mg IV Q10M PRN PRN PRN Reason: to Maintain BP Goals Leflunomide (Leflunomide 10 Mg Tablet) 10 mg PO DAILY [facility] Last Admin: 11/26/20 08:14 Dose: 10 mg Documented by: Loperamide HCl (Loperamide 2 Mg Capsule) 4 mg PO DAILY [facility] Last Admin: 11/26/20 08:14 Dose: 4 mg Documented by: Melatonin (Melatonin 3 Mg Tablet) 3 mg PO QHS PRN PRN PRN Reason: INSOMNIA Ondansetron HCl (Ondansetron 4 Mg/2 Ml Vial) 4 mg IV Q8H PRN PRN PRN Reason: NAUSEA/VOMITING Last Admin: 11/25/20 16:53 Dose: 4 mg Documented by: Senna/Docusate Sodium (Senna/Docusate Sodium 1 Tablet) 2 tablet PO BID PRN PRN PRN Reason: Constipation Sodium Chloride (0.9% Saline Lock 10 Ml Syringe) 10 - 40 ml IV UD PRN PRN Reason: SALINE FLUSH Discharge Activity: Return to Normal Activity Return to work on:: 11/27/20 May shower in (days): 0 May resume sexual activity in: No Restrictions Weight Bearing Status: Full weight bearing Call your doctor if you observe: Numbness or Tingling, Dizziness, Fainting spells, Chest pain, Increased palpitations (irregular heartbeat) Home Medications: Medications to take at Discharge ALPRAZolam [Xanax] 0.5 mg PO TID PRN 04/07/16 Acyclovir [Zovirax] 400 mg PO DAILY PRN 04/07/16 Estradiol [Estrace (G)] 1 mg PO DAILY 04/07/16 Loperamide [Imodium] 4 mg PO DAILY 04/07/16 Cholecalciferol (Vitamin D3) [Vitamin D3] 25 mcg PO DAILY 11/25/20 Colestipol HCl 1 gm PO BID 11/25/20 Leflunomide [Arava] 10 mg PO DAILY 11/25/20 Aspirin [Aspirin, Baby] 81 mg PO DAILY@0800 #30 tab.chew 11/26/20 Atorvastatin Calcium 40 mg PO QHS #30 tab 11/26/20 Following Prescriptions Were Given to Patient: Aspirin [Aspirin, Baby] 81 mg PO DAILY@0800 #30 tab.chew Transmission Status: Received by [facility] Atorvastatin Calcium 40 mg PO QHS #30 tab Transmission Status: Received by [facility] Primary Care Physician: Tanner Kramer MD [Primary Care Provider] - Please follow up with your Primary Care Physician in: Within the next week. Please Follow Up With: Pedro Boggs MD When: Within the next two weeks Please Follow Up With: [facility] - [phone] When: Call for appointment. Disposition: Home Minutes spent on discharge:: 35 Patient Condition:: Stable Medical Necessity - Tobacco Use Smoking Status: Never smoker Tobacco Use: Non-smoker Meaningful Use Info Meaningful Use Diagnoses (Choose all that apply): None applicable <Cali Hall F - Last Filed: 11/26/20 16:04> Discharge Date and Diagnosis - Primary Discharge Diagnosis Acute Problems: Active Problems Vision changes (Acute) TIA (transient ischemic attack) (Acute) - Secondary Discharge Diagnosis Chronic Problems: Chronic Problems IBS (irritable bowel syndrome) (Chronic) Hospital Course and Treatment Imaging Results: 11/26/20 08:30 Brain without Contrast [MRI] Stat Summary of Care Provided: The patient is a 45 year old F [] - Physical Exam Vitals/I&O's: Vital Signs Temp Pulse Resp BP Pulse Ox 98.0 F 77 18 120/88 H 98 11/26/20 15:36 11/26/20 15:36 11/26/20 15:36 11/26/20 15:36 11/26/20 15:36 Oxygen Delivery Method Room Air Weight: 148 lb 12.992 oz Body Mass Index (BMI) 23.3 Finger Stick Blood Glucose 89 Intake and Output for Last 24 Hours 11/24/20 11/25/20 11/26/20 23:59 23:59 23:59 Intake Total 720 / 720 Balance 720 / 720 Laboratory Results 11/25/20 16:23: Troponin I < 0.015 11/26/20 05:44: WBC 4.2 L, RBC 4.28, Hgb 12.3, Hct 40.1, MCV 93.7, MCH 28.7, MCHC 30.7 L, RDW Std Deviation 43.8, RDW Coeff of Milla 12.7, Plt Count 189, MPV 11.4, Immature Gran % (Auto) 0.200, Neut % (Auto) 37.9 L, Lymph % (Auto) 44.3 H, Butts % (Auto) 10.1 H, Eos % (Auto) 6.8 H, Baso % (Auto) 0.7, Absolute Neuts (auto) 1.6 L, Absolute Lymphs (auto) 1.88, Nucleated RBC % 0 11/26/20 05:44: Sodium 141, Potassium 3.8, Chloride 108 H, Carbon Dioxide 27.0, Anion Gap 6, BUN 14, Creatinine 0.70, Estim Creat Clear Calc 99.73, Est GFR (MDRD) Af Amer 118, Est GFR (MDRD) Non-Af 97, BUN/Creatinine Ratio 20.1 H, Glucose 88, Calcium 8.5, Phosphorus 3.3, Magnesium 2.0, Total Bilirubin 0.30, AST 16, ALT 20, Alkaline Phosphatase 71, Total Protein 6.4, Albumin 3.2, Globulin 3.2, Albumin/Globulin Ratio 1.0, Triglycerides 71, Cholesterol 163, LDL Cholesterol 65, VLDL Cholesterol 14, HDL Cholesterol 84, TSH 2.79 Current Medications Acetaminophen (Acetaminophen 325 Mg Tablet) 650 mg PO Q6H PRN PRN PRN Reason: Pain Score 1-10/Temp > 100.7 F Al Hydroxide/Mg Hydroxide (Mag Hydrox/Al Hydrox/Simeth 30 Ml Udc) 30 ml PO Q6H PRN PRN PRN Reason: Gastric Burning Alprazolam (Alprazolam 0.5 Mg Tablet) 0.5 mg PO TID PRN PRN Reason: ANXIETY Aspirin (Aspirin 81 Mg Tab.Chew) 81 mg PO DAILY@0800 [facility] Last Admin: 11/26/20 08:14 Dose: 81 mg Documented by: Atorvastatin Calcium (Atorvastatin Calcium 80 Mg Tablet) 80 mg PO QHS [facility] Last Admin: 11/25/20 21:16 Dose: 80 mg Documented by: Colestipol HCl (Colestipol Hcl 1 Gm Tablet) 1 gm PO BID@0700,1600 [facility] Last Admin: 11/26/20 05:06 Dose: Not Given Documented by: Enoxaparin Sodium (Enoxaparin 40 Mg/0.4 Ml Syringe) 40 mg SC DAILY [facility] Last Admin: 11/26/20 09:46 Dose: Not Given Documented by: Hydralazine HCl (Hydralazine 20 Mg/Ml Vial) 5 mg IV Q30M PRN PRN Reason: to maintain BP goals Labetalol HCl (Labetalol (Prefilled) 20 Mg/4 Ml) 10 - 20 mg IV Q10M PRN PRN PRN Reason: to Maintain BP Goals Leflunomide (Leflunomide 10 Mg Tablet) 10 mg PO DAILY [facility] Last Admin: 11/26/20 08:14 Dose: 10 mg Documented by: Loperamide HCl (Loperamide 2 Mg Capsule) 4 mg PO DAILY [facility] Last Admin: 11/26/20 08:14 Dose: 4 mg Documented by: Melatonin (Melatonin 3 Mg Tablet) 3 mg PO QHS PRN PRN PRN Reason: INSOMNIA Ondansetron HCl (Ondansetron 4 Mg/2 Ml Vial) 4 mg IV Q8H PRN PRN PRN Reason: NAUSEA/VOMITING Last Admin: 11/25/20 16:53 Dose: 4 mg Documented by: Senna/Docusate Sodium (Senna/Docusate Sodium 1 Tablet) 2 tablet PO BID PRN PRN PRN Reason: Constipation Sodium Chloride (0.9% Saline Lock 10 Ml Syringe) 10 - 40 ml IV UD PRN PRN Reason: SALINE FLUSH Addendum: Dr. Kotsonis I personally examined the patient and reviewed the chart. I agree with the above. 45-year-old woman presented from home with signs and symptoms consistent with stroke. She had loss of vision in her right eye right hand numbness. She went to her speeder machine operator to be wrong with her and therefore referred her to the ER for stroke work-up. MRI of her head was unremarkable CTA of her head and neck was unremarkable for any vascular issues. I discussed with her the need to follow-up with neurology as an outpatient. I recommend that she continue with aspirin and Lipitor for now. Echo is pending though I do not think this will affect management. Another possibility besides TIA is either a migraine with aura, she did have a headache at around the time of this vision change and she does state that her sister used to have blindness in her eye prior to her migraine. She also has a history of rheumatoid arthritis and we can continue her home medications on discharge. Can resume her estrogen secondary to a remote hysterectomy as she does not appear to have a stroke at this time. I discussed with her the plan for discharge and she expressed understanding of the risk and benefits of going home and would like to go home today. OBSV E&M: 75052 Observation care discharge
--- NOTE | 2020-11-26 14:25 | PHA.DC.MC ---
Pharmacy Service has performed discharge medication reconciliation and counseling for this patient. The patient was counseled on the following discharge medications and changes in medications for homegoing were reviewed. 1. LIPITOR 2. ASPIRIN The Reason for Use, instructions for use, and potential side effects were reviewed for all new medications. The patient's questions regarding all of their medications were answered. The patient was able to verbally demonstrate an understanding of their discharge medications. Home Medications ALPRAZolam [Xanax] 0.5 mg PO TID PRN 04/07/16 Acyclovir [Zovirax] 400 mg PO DAILY PRN 04/07/16 Estradiol [Estrace (G)] 1 mg PO DAILY 04/07/16 Loperamide [Imodium] 4 mg PO DAILY 04/07/16 Cholecalciferol (Vitamin D3) [Vitamin D3] 25 mcg PO DAILY 11/25/20 Colestipol HCl 1 gm PO BID 11/25/20 Leflunomide [Arava] 10 mg PO DAILY 11/25/20 Aspirin [Aspirin, Baby] 81 mg PO DAILY@0800 #30 tab.chew 11/26/20 Atorvastatin Calcium 40 mg PO QHS #30 tab 11/26/20 The patient's discharge medication list was reviewed for discrepancies and discrepancies were resolved.
== END 2020-11-26 11:33 | disposition home or self-care (01) ==
LOC: ED 14:31 → PCU 15:39
PROVIDERS: Admitting Provider Internal Medicine; Emergency Provider Emergency Medicine; PCP Family Medicine; Visit Provider Family Medicine
DX: G45.9 Transient cerebral ischemic attack, unspecified (principal); G43.909 Migraine, unspecified, not intractable, without status migrainosus; F41.9 Anxiety disorder, unspecified; M79.7 Fibromyalgia; M06.9 Rheumatoid arthritis, unspecified; K58.9 Irritable bowel syndrome, unspecified; Z79.899 Other long term (current) drug therapy; R11.2 Nausea with vomiting, unspecified; Q21.1 Atrial septal defect; Z90.710 Acquired absence of both cervix and uterus
CPT/HCPCS: 36415; 70450; 70496; 70498; 70551; 71045; 80048; 80053; 80061; 82962; 83735; 84100; 84443; 84484; 85025; 85610; 85730; 93005; 93306; 96374; 99218; 99285; Q9967; A4216; G0378; J2405

== ENCOUNTER → 2020-11-30 12:44 | Outpatient (CLI) | payer MEDICAID, SELFPAY ==
[2020-11-25 16:13] VITALS: BMI 23.3
--- NOTE | 2020-11-30 12:45 | BI_ITS ---
MAMMOGRAPHY - BILATERAL SCREENING REASON FOR EXAM: Female, 45 years old. Routine annual screening examination. PERTINENT HISTORY: Grandmother with breast cancer. TECHNIQUE: Digital bilateral breast destiny (3D mammographic acquisition) in the CC and MLO projections. 2-D mediolateral oblique (MLO) and craniocaudad (CC) views of both breasts were obtained. CAD: Full Field Digital Mammography with Computer Added Detection was performed. COMPARISON: Comparison is made with prior study dated 11/29/2019 and 11/22/2018. FINDINGS: Breast Composition: The breasts are extremely dense, which lowers the sensitivity of mammography. There are no dominant masses or suspicious calcifications. No other significant abnormalities are identified. There has been no significant change since the prior study. BI/SCRN MAMM (CAD)W/DESTINY BILAT IMPRESSION: Stable bilateral screening mammogram. Yearly follow-up mammogram recommended. (A) ASSESSMENT CATEGORY: BIRADS Category 1: Negative. A letter regarding these results will be sent to the patient by the facility within 30 days. Approximately 10% of breast cancers are not detected by mammography. A normal mammogram should not delay biopsy of a clinically suspicious abnormality. [id number] Electronically Signed: Todd Espinosa MD at 13:21 EST , Service support ,
== END ==
PROVIDERS: PCP Family Medicine; Referring Provider Obstetrics & Gynecology; Visit Provider Obstetrics & Gynecology
DX: Z12.31 Encounter for screening mammogram for malignant neoplasm of breast (principal); Z80.3 Family history of malignant neoplasm of breast
CPT/HCPCS: 77063; 77067

== ENCOUNTER → 2020-12-18 12:32 | Outpatient (CLI) | payer MEDICAID, SELFPAY ==
[2020-11-25 16:13] VITALS: BMI 23.3
[2020-12-18 12:57] LABS: D-Dimer Quantitative (DVT/PE) <= 0.27 FEU/ug/m (0.27-0.49)
== END ==
PROVIDERS: PCP Family Medicine; Referring Provider Family Medicine; Visit Provider Family Medicine
DX: M79.606 Pain in leg, unspecified (principal)
CPT/HCPCS: 36415; 85379

== ENCOUNTER → 2020-12-26 09:55 | Outpatient (CLI) | payer MEDICAID, SELFPAY ==
[2020-11-25 16:13] VITALS: BMI 23.3
--- NOTE | 2020-12-26 10:00 | BD_ITS ---
STUDY: DUAL ENERGY X-RAY ABSORPTIOMETRY / DXA REASON FOR EXAM: Female, 45 years old. M85.89. Early menopause. Loss of height. TECHNIQUE: Bone Mineral Density (BMD) measurements of lumbar spine and bilateral hips were obtained. COMPARISON: None. FINDINGS: Lumbar Spine (L1-L4): g/cm2 (1.075) / T-score (-0.8) / Z-score (-0.8) Findings are suggestive of normal bone density with a low fracture risk. Left Femur Total: g/cm2 (0.870) / T-score (-1.1) / Z-score (-0.8) Left Femoral Neck: g/cm2 (0.835) / T-score (-1.5) / Z-score (-0.9) Right Femur Total: g/cm2 (0.862) / T-score (-1.2) / Z-score (-0.9) Right Femoral Neck: g/cm2 (0.848) / T-score (-1.4) / Z-score (-0.8) BD/Dexa Bone Density Study IMPRESSION: The patient is considered osteopenic as outlined below according to World Rad Organization (WHO) criteria with a low fracture risk. Reference Information: The T-score is the number of standard deviations above or below the standard which is normal for young adults at their peak bone mineral density. The World Health Organization (WHO) interprets the T-scores as follows: Above -1 Normal bone density Between -1 and -2.5 Osteopenia Equal to / or below -2.5 Osteoporosis As a practical clinical guideline, osteopenia may be graded as follows: Mild -1 through -1.5 Moderate -1.6 through -2.0 Severe -2.1 through -2.4 The Z-score is the number of standard deviations above or below age-matched controls. A Z-score of less than -1.5 would be considered abnormal. References: 1. NIH Osteoporosis and Related Bone Diseases www osteo.org 2. International Society for Clinical Densitometry www iscd.org 3. National Osteoporosis Foundation www nof.org Electronically Signed: Todd Espinosa MD at 15:47 EDT , Service support ,
== END ==
PROVIDERS: PCP Family Medicine; Referring Provider Obstetrics & Gynecology; Visit Provider Obstetrics & Gynecology
DX: M85.9 Disorder of bone density and structure, unspecified (principal)
CPT/HCPCS: 77080

== ENCOUNTER 2021-01-17 07:38 | Emergency (ER) | payer MEDICAID, SELFPAY ==
[2020-12-26 11:25] VITALS: BMI 23.8
[2021-01-17] VITALS (8 sets, daily range): BP systolic 127–146; BP diastolic 77–105; PULSE 60–86; RESP 13–28; TEMP 36.4; O2SAT 97–100; BMI 24.6
--- NOTE | 2021-01-17 07:52 | EKG12_ITS ---
Test Reason : Blood Pressure : / mmHG Vent. Rate : 067 BPM Atrial Rate : 067 BPM P-R Int : 152 ms QRS Dur : 074 ms QT Int : 418 ms P-R-T Axes : 029 -01 028 degrees QTc Int : 441 ms Normal sinus rhythm Normal ECG Confirmed by BRODY RAMOS, KVEIN ([id number]), assignment editor JOANA CESPEDES ([id number]) on 01/18/2021 8:20:44 AM Referred By: RUDDY Confirmed By:VIVI SKINNER MD
--- NOTE | 2021-01-17 07:52 | RAD_ITS ---
STUDY: X-RAY CHEST REASON FOR EXAM: Female, 45 years old. Chest pain TECHNIQUE: Single AP portable view of the chest. COMPARISON: Comparison made with prior study dated 11/25/2020. FINDINGS: EKG electrodes are seen. The lungs are clear and expanded. There is no demonstrated pleural abnormality. Normal size heart. Normal mediastinum and kaylah. Normal visualized pulmonary arteries. Normal visualized aortic arch and descending thoracic aorta. Normal visualized thoracic spine. Normal visualized ribs, clavicles, and shoulders. There is no demonstrated abnormality of the visualized soft tissue structures of the upper abdomen. RAD/Chest 1 View (Portable) IMPRESSION: Normal x-ray examination of the chest. Electronically Signed: Todd Espinosa MD at 8:18 EDT , Service support ,
--- NOTE | 2021-01-17 07:53 | ED.VIS.GEN ---
History of Present Illness Chief Complaint: Chest Pain Informant: Patient Narrative: 45-year-old female with a history of TIA and PFO presents the emergency department with severe epigastric pain. She tells me she was on her way into work and suddenly got a severe pain in her epigastrium to lower mid chest. Nonradiating. She states that doubles her over and then eased up and then came back. She states that for the past several weeks she has been drinking keto drinks. She wonders if that has anything to do with this. She does not have a gallbladder. No history of pancreatitis. Patient denies any recent exertional symptoms. No black or bloody stools. She has a history of IBS and has had negative colonoscopies. She is never had EGD. - Past Medical History (1) History of TIA (transient ischemic attack) Status: Chronic Comment: 2016, 10/2020 (2) Hyperlipidemia Status: Chronic (3) Patent foramen ovale Status: Chronic Past Medical History - Allergies and Home Meds Allergies/Adverse Reactions: Allergies morphine Allergy (Verified 01/17/21 07:43) Other bacitracin [From Neosporin ([id number])] Adverse Reaction (Verified 01/17/21 07:43) Rash metronidazole [From Flagyl] Adverse Reaction (Verified 01/17/21 07:43) Nausea neomycin [From Neosporin ([id number])] Adverse Reaction (Verified 01/17/21 07:43) Rash polymyxin B [From Neosporin ([id number])] Adverse Reaction (Verified 01/17/21 07:43) Rash Primary Care Physician: Tanner Kramer MD [Primary Care Provider] - As soon as possible Surgical History: noncontributory, hysterectomy Smoking Status: Never smoker Drugs: None - Family History Maternal Family History: Reports: No pertinent history Review of Systems General: Denies: Chills, Fever, Sweats Eyes: Denies: Visual changes - bilaterally, Diplopia ENT: Denies: Rhinorrhea, Sore throat Cardiovascular: Reports: Chest pain. Denies: Palpitations Respiratory: Denies: Dyspnea, Cough, Dyspnea on exertion Gastrointestinal: Reports: Abdominal pain. Denies: Nausea, Vomiting, Diarrhea, Melena, Hematochezia Genitourinary: Denies: Dysuria, Hematuria, Frequency Musculoskeletal: Denies: Back pain, Extremity Pain Skin: Denies: Rash, Wounds Neurological: Denies: Headache, Weakness, Numbness Physical Exam Vital Signs/Narrative: Vital Signs Temp Pulse Resp BP Pulse Ox 01/17/21 07:39 97.6 F L 75 14 146/90 H 100 Inital Vital Signs reviewed: Yes General: Well nourished, Well developed, No Acute Distress Head: Normocephalic, Atraumatic Eyes: Perrl, EOMI ENT: Moist mucous membranes, No rhinorrhea Neck: Supple, Nontender Cardiovascular: Regular rate, Regular rhythm, No murmurs Respiratory: No distress, CTA bilaterally, Chest nontender Abdomen: Soft, Nontender, Nondistended, Normal bowel sounds Back: Nontender, Normal Inspection Extremities: Nontender, No edema Skin: Normal color, No rash Neurological: Alert, Oriented x3, Cranial nerves II-XII grossly intact, Normal Strength, Normal Sensation Psychological: Normal affect, Normal Mood Diagnostic/Tx/Re-eval Clinical Impression(s) from Imaging Studies Chest X-Ray 01/17/21 07:52 IMPRESSION: Normal x-ray examination of the chest. Electronically Signed: Todd Espinosa MD at 8:18 EDT , Service support , Laboratory Last Values WBC 5.8 K/mm3 (4.4-11.0) 01/17/21 07:45 RBC 4.78 M/mm3 (4.2-5.4) 01/17/21 07:45 Hgb 13.9 g/dL (12.0-15.0) 01/17/21 07:45 Hct 44.5 % (37-47) 01/17/21 07:45 MCV 93.1 fL (81-99) 01/17/21 07:45 MCH 29.1 pg (27.0-32.0) 01/17/21 07:45 MCHC 31.2 g/dL (32-36) L 01/17/21 07:45 RDW Std Deviation 43.9 fl (35.1-43.9) 01/17/21 07:45 RDW Coeff of Milla 12.6 % (11.6-14.6) 01/17/21 07:45 Plt Count 233 K/mm3 (150-450) 01/17/21 07:45 MPV 12.4 fl (6.2-12.0) H 01/17/21 07:45 Immature Gran % (Auto) 0.200 % (0.0-0.9) 01/17/21 07:45 Neut % (Auto) 43.8 % (47-70) L 01/17/21 07:45 Lymph % (Auto) 33.2 % (19-41) 01/17/21 07:45 [place] % (Auto) 7.4 % (0-10) 01/17/21 07:45 Eos % (Auto) 14.2 % (0-5) H 01/17/21 07:45 Baso % (Auto) 1.2 % (0-1) H 01/17/21 07:45 Absolute Neuts (auto) 2.5 X10^3/uL (2.0-7.7) 01/17/21 07:45 Absolute Lymphs (auto) 1.92 X10^3/uL (0.83-4.51) 01/17/21 07:45 Nucleated RBC % 0 % (0-5) 01/17/21 07:45 D-Dimer Quant (PE/DVT) 0.34 FEU/ug/m (0.27-0.49) 01/17/21 08:25 Sodium 140 mmol/L (136-145) 01/17/21 08:25 Potassium 3.6 mmol/L (3.5-5.1) 01/17/21 08:25 Chloride 105 mmol/L (98-107) 01/17/21 08:25 Carbon Dioxide 31.0 mmol/L (21.0-32.0) 01/17/21 08:25 Anion Gap 4 (5-15) L 01/17/21 08:25 BUN 14 mg/dL (7-18) 01/17/21 08:25 Creatinine 0.72 mg/dL (0.55-1.02) 01/17/21 08:25 Estim Creat Clear Calc 93.34 ml/min 01/17/21 08:25 Est GFR (MDRD) Af Amer 114 mL/min (>60) 01/17/21 08:25 Est GFR (MDRD) Non-Af 94 mL/min (>60) 01/17/21 08:25 BUN/Creatinine Ratio 19.6 RATIO (10-20) 01/17/21 08:25 Glucose 83 mg/dL (74-106) 01/17/21 08:25 Calcium 9.2 mg/dL (8.5-10.1) 01/17/21 08:25 Total Bilirubin 0.50 mg/dL (0.20-1.00) 01/17/21 08:25 Direct Bilirubin 0.18 mg/dL (0.00-0.30) 01/17/21 08:25 AST 86 U/L (15-37) H 01/17/21 08:25 ALT 50 U/L (13-56) 01/17/21 08:25 Alkaline Phosphatase 91 U/L (45-117) 01/17/21 08:25 Troponin I < 0.015 ng/mL (<0.045) 01/17/21 08:25 Total Protein 7.2 g/dL (6.4-8.2) 01/17/21 08:25 Albumin 3.7 g/dL (3.2-5.0) 01/17/21 08:25 Globulin 3.5 g/dL (2.2-4.2) 01/17/21 08:25 Lipase 2221 U/L (73-393) H 01/17/21 08:25 - EKG Initial EKG Interpretation: Sinus Rhythm - EKG demonstrates a normal sinus rhythm at a rate of 67. No concerning features of ACS. No significant change from prior - Medical Decision Making My interpretation of the single view portable chest x-ray is no acute disease. Radiology concurs. Troponin D-dimer negative. EKG is a normal sinus rhythm. Her lipase came back significantly elevated at 2200. Patient unfortunately is a very difficult IV stick. We are going to order a CT of the abdomen pelvis which will need to be performed with oral and IV contrast. This was obtained and negative. Patient is not having any significant abdominal discomfort despite this lipase of 2200 there is no findings consistent with pancreatitis on the CT. repeat lipase level is down to 700. It is possible that the elevated lipase level is due to her keto diet. Given the high amount of lipids in the diet this could explain her symptoms. A GI cocktail did help some of her lower chest symptoms. I have asked that she discontinue her keto diet. I have asked that she follow-up with her doctor in the next several days to have a recheck of her lipase. I did speak with her primary care physician and he agrees with this plan. ED Disposition - Plan for ED Patient: Disposition: Home or Assisted Living Diagnosis: Acute abdominal pain, Elevated lipase Instructions: Understanding Pancreatitis Referrals: Tanner Kramer MD [Primary Care Provider] - As soon as possible Additional Instructions: I would encourage you to discontinue the keto diet. I need you to follow-up with your primary care physician in the next several days for recheck of your lipase level.
[2021-01-17 08:12] LABS: Absolute Lymphocyte Count 1.92 X10^3/uL (0.83-4.51); Absolute Neutrophil Count 2.5 X10^3/uL (2.0-7.7); Basophil# 0.07 X10^3/uL; Basophil% 1.2 % (0-1); Eosinophil# 0.82 X10^3/uL; Eosinophils% 14.2 % (0-5); Hematocrit 44.5 % (37-47); Hemoglobin 13.9 g/dL (12.0-15.0); Lymphocyte # 1.92 X10^3/ul (0.83-4.51); Lymphocyte % 33.2 % (19-41); Mean Corp Hgb Conc 31.2 g/dL (32-36); Mean Corpuscular Hgb 29.1 pg (27.0-32.0); Mean Corpuscular Volume 93.1 fL (81-99); Mean Platelet Vol. 12.4 fl (6.2-12.0); Monocyte# 0.43 X10^3/uL; Monocyte% 7.4 % (0-10); NRBC Flagged by Analyzer 0 % (0-5); Neutrophil # 2.53 X10^3/uL (2.7-7.7); Neutrophil % 43.8 % (47-70); Platelet Count 233 K/mm3 (150-450); RBC Distribution Width CV 12.6 % (11.6-14.6); RBC Distribution Width SD 43.9 fl (35.1-43.9); Red Blood Count 4.78 M/mm3 (4.2-5.4); White Blood Count 5.8 K/mm3 (4.4-11.0)
[2021-01-17] MEDS: Mag Hydrox/Al Hydrox/Simeth 30 ML UDC PO (08:14)
[2021-01-17 08:44] LABS: D-Dimer Quantitative (DVT/PE) 0.34 FEU/ug/m (0.27-0.49)
[2021-01-17 08:50] LABS: Anion Gap 4 (5-15); BUN 14 mg/dL (7-18); BUN/Creat Ratio 19.6 RATIO (10-20); Calcium,Total 9.2 mg/dL (8.5-10.1); Chloride 105 mmol/L (98-107); Creatinine, Serum 0.72 mg/dL (0.55-1.02); EST Glomerular Filtration Rate 94 mL/min (>60); Est Glom Filt Rate - Afr Amer 114 mL/min (>60); Estimated Creatinine Clearance 93.34 ml/min; Glucose 83 mg/dL (74-106); Potassium 3.6 mmol/L (3.5-5.1); Sodium Level 140 mmol/L (136-145)
[2021-01-17 09:22] LABS: AST(SGOT) 86 U/L (15-37); Alanine Aminotransfer ALT/SGPT 50 U/L (13-56); Albumin, Serum 3.7 g/dL (3.2-5.0); Alkaline Phosphatase 91 U/L (45-117); Bilirubin, Direct 0.18 mg/dL (0.00-0.30); Globulin 3.5 g/dL (2.2-4.2); Protein, Total 7.2 g/dL (6.4-8.2)
[2021-01-17 09:24] LABS: Lipase 2221 U/L (73-393)
--- NOTE | 2021-01-17 10:19 | CT_ITS ---
STUDY: CT ABDOMEN AND PELVIS WITH CONTRAST REASON FOR EXAM: Female, 45 years old. Elevated lipase. Abdominal and epigastric pain. RADIATION DOSAGE (If Supplied By Facility): CTDIvol = ( 11.10 ) mGy, DLP = ( 612.81 ) mGycm TECHNIQUE: Transaxial images were obtained from the dome of the diaphragm to the symphysis pubis with oral contrast. Oral and amp; IV Gastrografin and amp; 100mL Isovue-300 was administered. Sagittal and coronal images were reconstructed. Individualized dose optimization techniques were used for this CT. COMPARISON: Comparison is made with prior study dated 07/02/2016. FINDINGS: The visualized lung bases are unremarkable. The visualized portions of the heart are within normal limits. Normal liver. The patient is status post cholecystectomy. Normal spleen. Normal pancreas. Normal bilateral adrenal glands. 6.6 mm cyst in the upper lateral aspect of the right kidney. 9 mm cyst in the anterior midportion of the left kidney. There is a small hiatal hernia. Normal small intestine. Moderate amount of fecal material is seen throughout the colon The appendix is visualized and appears normal. Normal abdominal aorta. Normal inferior vena cava. Normal retroperitoneum. Normal urinary bladder. There is absence of the uterus consistent with a prior hysterectomy. Normal abdominal wall. Normal osseous structures. CT/Abdomen/Pelvis WITH Contrast IMPRESSION: Moderate amount of fecal material is seen throughout the colon. The patient is status post hysterectomy. Status post cholecystectomy. Electronically Signed: Todd Espinosa MD at 12:17 EDT , Service support ,
[2021-01-17] MEDS: 0.9% Normal Saline 1,000 ML 999 ML IV (10:54)
[2021-01-17] MEDS: Ondansetron ODT 4 MG Tablet PO (11:58)
[2021-01-17 13:52] LABS: Lipase 706 U/L (73-393)
[2021-01-17] MEDS: Acetaminophen 500 MG Tablet 1000 MG PO (14:00)
== END 2021-01-17 14:20 | disposition home or self-care (01) ==
PROVIDERS: Emergency Provider Emergency Medicine; PCP Family Medicine
DX: R10.9 Unspecified abdominal pain (principal); R74.8 Abnormal levels of other serum enzymes; E78.5 Hyperlipidemia, unspecified; Q21.1 Atrial septal defect; Z86.73 Personal history of transient ischemic attack (TIA), and cerebral infarction without residual deficits; Z88.1 Allergy status to other antibiotic agents; Z90.49 Acquired absence of other specified parts of digestive tract; Z90.710 Acquired absence of both cervix and uterus
CPT/HCPCS: 36415; 71045; 74177; 80048; 80076; 83690; 84484; 85025; 85379; 93005; 96360; 99284; J7030; Q9967; A4216

== ENCOUNTER → 2021-04-22 13:09 | Outpatient (CLI) | payer MEDICAID, SELFPAY ==
[2021-01-17 07:39] VITALS: BMI 24.6
--- NOTE | 2021-04-22 15:14 | NEURO ---
NCS and/or EMG Patient Report Ordering Doctor: Marily Thacker DATE OF SERVICE: 04/22/21 Indication: Bilateral lower extremity discomfort. Evaluate for peripheral neuropathy. Findings: Nerve conduction studies were performed in the right and left lower extremity. The right peroneal motor study recording the extensor digitorum brevis showed a normal amplitude, normal distal latency and normal conduction velocity. No conduction block or focal slowing was present across the fibular neck. The right tibial motor study recording the abductor hallucis brevis showed a normal amplitude, normal distal latency and normal conduction velocity. Right sural sensory response showed a normal amplitude and conduction velocity. Right superficial peroneal sensory response showed a normal amplitude and conduction velocity. The left peroneal motor study recording the extensor digitorum brevis showed a normal amplitude, normal distal latency and normal conduction velocity. No conduction block or focal slowing was present across the fibular neck. The left tibial motor study recording the abductor hallucis brevis showed a normal amplitude, normal distal latency and normal conduction velocity. Left sural sensory response showed a normal amplitude and conduction velocity. Left superficial peroneal sensory response showed a normal amplitude and conduction velocity. Needle EMG of the left lower extremity and lumbar paraspinal muscles was performed. No denervation was present in any muscle. All motor unit morphology, activation and recruitment patterns were normal. Examination of the right lower extremity was omitted due to the paucity of findings on the left. Impression: This is a normal study. There is no electrophysiologic evidence of peripheral neuropathy in the either lower extremity. In addition, there is no evidence of lumbosacral radiculopathy in the left lower extremity. Dilan Todd D.O.
== END ==
DX: M05.79 Rheumatoid arthritis with rheumatoid factor of multiple sites without organ or systems involvement (principal); M79.606 Pain in leg, unspecified
CPT/HCPCS: 95886; 95910

== ENCOUNTER → 2021-07-09 15:14 | Outpatient (CLI) | payer MEDICAID, SELFPAY | PROVIDERS: Referring Provider Otolaryngology Otolaryngology/Facial Plastic Surgery; Visit Provider Otolaryngology Otolaryngology/Facial Plastic Surgery | DX: J02.9 Acute pharyngitis, unspecified (principal) | CPT/HCPCS: 87070 ==

== ENCOUNTER 2021-10-07 15:12 | Outpatient (CLI) | payer MEDICAID, SELFPAY | END 2021-10-07 23:59 | disposition short-term general hospital (02) | LOC: LABSPEC 15:12 | PROVIDERS: Visit Provider Otolaryngology Otolaryngology/Facial Plastic Surgery | DX: J02.9 Acute pharyngitis, unspecified (principal) | CPT/HCPCS: 87070 ==

== ENCOUNTER 2021-12-03 07:53 | Outpatient (CLI) | payer MEDICAID, SELFPAY ==
--- NOTE | 2021-12-03 07:58 | BI_ITS ---
MAMMOGRAPHY - BILATERAL SCREENING REASON FOR EXAM: Female, 46 years old. Routine annual screening examination. PERTINENT HISTORY: Grandmother with breast cancer. TECHNIQUE: Digital bilateral breast destiny (3D mammographic acquisition) in the CC and MLO projections. 2-D mediolateral oblique (MLO) and craniocaudad (CC) views of both breasts were obtained. CAD: Full Field Digital Mammography with Computer Added Detection was performed. COMPARISON: Comparison is made with prior study of 11/30/2020 and 11/29/2019. FINDINGS: Breast Composition: The breasts are extremely dense, which lowers the sensitivity of mammography. There are no dominant masses or suspicious calcifications. No other significant abnormalities are identified. There has been no significant change since the prior study. BI/SCRN MAMM (CAD)W/DESTINY BILAT IMPRESSION: Stable bilateral screening mammogram. Yearly follow-up mammogram recommended. (A) ASSESSMENT CATEGORY: BIRADS Category 1: Negative. A letter regarding these results will be sent to the patient by the facility within 30 days. Approximately 10% of breast cancers are not detected by mammography. A normal mammogram should not delay biopsy of a clinically suspicious abnormality. [id number] Electronically Signed: Todd Espinosa MD at 8:57 EST ,
== END 2021-12-03 23:59 | disposition home or self-care (01) ==
LOC: OPBI 07:54
PROVIDERS: Visit Provider Obstetrics & Gynecology
DX: Z12.31 Encounter for screening mammogram for malignant neoplasm of breast (principal); Z80.3 Family history of malignant neoplasm of breast
CPT/HCPCS: 77063; 77067

== ENCOUNTER 2021-12-17 17:54 | Outpatient (CLI) | payer MEDICAID, SELFPAY ==
[2021-12-20 00:07] LABS: Chlamydia By Nucleic Acid AMP Negative (Negative)
[2021-12-20 09:12] LABS: Gonococcus By Nucleic Acid AMP Negative (Negative)
== END 2021-12-17 23:59 | disposition home or self-care (01) ==
PROVIDERS: Visit Provider Obstetrics & Gynecology
DX: Z11.3 Encounter for screening for infections with a predominantly sexual mode of transmission (principal)
CPT/HCPCS: 87491; 87591

== ENCOUNTER → 2022-03-24 | Outpatient (CLI) | payer MEDICAID, SELFPAY ==
--- NOTE | 2022-03-24 10:33 | VDLE_ITS ---
Reason For Study: pain Procedure LEFT This is a venous duplex using B-mode, color GSV is normal. flow and spectral Doppler. CFV is compressible, spontaneous, phasic, Exam performed in department. competent, and demonstrates normal The exam was abbreviated due to the COVID 19 augmentation. protocol. FV is compressible, spontaneous, phasic, The exam was diagnostic. competent and demonstrates normal A preliminary report was called and/or faxed augmentation. to Ness Garcia. POP V is compressible, spontaneous, phasic, competent and demonstrates normal augmentation. T/P Trunk is compressible. PTV is compressible. LT PerV is compressible. VL/Venous Duplex US, Unilateral Interpretation Summary Deep veins of the left lower extremity are patent and compressible segmentally. There is no evidence of left lower extremity deep vein thrombosis. Valvular competence appears intac t within the proximal deep venous system on the left . The left great saphenous vein appears patent a nd compressible segmentally. Ordering Physician: Ness Garcia Performed By: Lorenzo Beavers RVT
[2022-03-24 12:45] LABS: Erythrocyte Sedimentation Rate 18 mm/hr (0-30)
[2022-03-24 12:46] LABS: Absolute Lymphocyte Count 1.34 X10^3/uL (0.83-4.51); Basophil# 0.04 X10^3/uL; Eosinophil# 0.25 X10^3/uL; Eosinophils% 6.4 % (0-5); Hematocrit 40.1 % (37-47); Hemoglobin 12.6 g/dL (12.0-15.0); Lymphocyte # 1.34 X10^3/ul (0.83-4.51); Lymphocyte % 34.4 % (19-41); Mean Corp Hgb Conc 31.4 g/dL (32-36); Mean Corpuscular Hgb 29.3 pg (27.0-32.0); Mean Corpuscular Volume 93.3 fL (81-99); Monocyte% 7.7 % (0-10); NRBC Flagged by Analyzer 0 % (0-5); Neutrophil # 1.97 X10^3/uL (2.7-7.7); Neutrophil % 50.5 % (47-70); Platelet Count 194 K/mm3 (150-450); RBC Distribution Width CV 12.9 % (11.6-14.6); RBC Distribution Width SD 44.2 fl (35.1-43.9); White Blood Count 3.9 K/mm3 (4.4-11.0)
[2022-03-24 13:22] LABS: AST(SGOT) 18 U/L (15-37); Alanine Aminotransfer ALT/SGPT 19 U/L (13-56); Albumin, Serum 3.7 g/dL (3.2-5.0); Alkaline Phosphatase 77 U/L (45-117); Anion Gap 9 (5-15); BUN 14 mg/dL (7-18); BUN/Creat Ratio 21.9 RATIO (10-20); CRP < 2.90 mg/L (0.0-3.0); Calcium,Total 9.4 mg/dL (8.5-10.1); Chloride 105 mmol/L (98-107); Creatinine, Serum 0.64 mg/dL (0.55-1.02); EST Glomerular Filtration Rate 107 mL/min (>60); Est Glom Filt Rate - Afr Amer 129 mL/min (>60); Globulin 3.7 g/dL (2.2-4.2); Glucose 76 mg/dL (74-106); LDH 204 U/L (84-246); Potassium 3.9 mmol/L (3.5-5.1); Protein, Total 7.4 g/dL (6.4-8.2); Sodium Level 140 mmol/L (136-145)
[2022-03-25 13:08] LABS: Anti-Centromere B Ab <0.2 AI (0.0-0.9); Anti-Chromatin <0.2 AI (0.0-0.9); Anti-Jo <0.2 AI (0.0-0.9); Anti-Scleroderma-70 AB <0.2 AI (0.0-0.9); RNP Ab <0.2 AI (0.0-0.9); SJOGREN'S Anti-SS-A test < 0.2 AI (0.0-0.9); SJOGREN'S Anti-SS-B test < 0.2 AI (0.0-0.9); Smith Ab <0.2 AI (0.0-0.9)
[2022-03-25 14:08] LABS: Endomysial Antibody IgA Negative (Negative)
[2022-03-27 16:37] LABS: Immunoglobulin A 103 mg/dL (87-352); t-Transglutaminase IgA <2 U/mL (0-3)
[2022-03-27 16:38] LABS: Anti-dsDNA Ab 1 IU/mL (0-9)
[2022-03-28 18:07] LABS: Albumin 3.7 g/dL (2.9-4.4); Alpha-1-Globulins 0.3 g/dL (0.0-0.4); Alpha-2-Globulins 0.8 g/dL (0.4-1.0); Cytoplasmic Ab (C-ANCA) <1:20 titer (Neg:<1:20); Immunoglobulin A 102 mg/dL (87-352); Immunoglobulin E 11 IU/mL (6-495); Immunoglobulin G 862 mg/dL (586-1602); Immunoglobulin M 216 mg/dL (26-217); PROEL- TOTAL PROTEIN 6.9 g/dL (6.0-8.5)
[2022-03-28 20:16] LABS: Perinuclear Ab (P-ANCA) <1:20 titer (Neg:<1:20)
== END | disposition home or self-care (01) ==
PROVIDERS: Internal Medicine Gastroenterology; Referring Provider Physician Assistant; Visit Provider Physician Assistant
DX: M79.662 Pain in left lower leg (principal); R19.7 Diarrhea, unspecified; A04.72 Enterocolitis due to Clostridium difficile, not specified as recurrent
CPT/HCPCS: 80053; 82784; 82785; 83516; 83615; 84165; 85025; 85652; 86140; 86225; 86235; 86255; 86256; 86334; 93971

== ENCOUNTER 2022-04-30 07:40 | Day surgery (SDC) | payer MEDICAID, SELFPAY ==
[2022-04-30] VITALS (7 sets, daily range): BP systolic 100–154; BP diastolic 59–82; PULSE 63–73; RESP 16; TEMP 36.4–37.1; O2SAT 99–100; BMI 23.1
--- NOTE | 2022-04-30 08:03 | PCM.HP.BLA ---
History and Physical Date of Admission: 04/30/22 DERICK SCHUSTER, is a 46 F who presents to the office today for Initial consult. 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 She was initially seen following [facility] ED presentation 01.17.21 for severe epigastric pain. Lipase found to be elevated at 2221 and subsequently lowered to 706 later that day (78.0 on 07.30.21); suspected to be r/t keto diet. She was diagnosed with C.Difficile 01.16 (C.Difficile stools tests WNL) and treated with vancomycin with noted effectiveness. Failed medications include Carafate and Questran. PMH includes history of TIA, patent foramen ovale, hyperlipidemia. US RUQ ([facility]) 02.15.21 finding normal pancreas with obscured tail; normal liver; prior cholecystectomy; normal biliary dilation. EGD performed 04.19.21 with slight reactive gastropathy noted; duodenal mucosa without alteration. Severe bile reflux of stomach and significant hemorrhagic gastritis. Gastric emptying study ([facility]) 07.31.21 found normal rate of gastric emptying with 83% retention at one hour. And 1% retained at 4hours. Fecal elastase .03.18 normal >800. Upper GI series performed ([facility]) 08.06.21 found small sliding hiatal hernia; gastroesophageal reflux to above level of geovani. Reports issues with Colitis with hospitalizations; IBS-d; C.Diff 4-5 times always just antigen, she takes vancomycin. Typically occurs following antibiotic or PPI use. Started on azithromycin. Can?t recall last occurrence of C.difficile. Reports GERD with frequent scratchy throat and cough. She was supposed to have Teddy tomorrow; she cancelled because she is not mentally prepared as her wedding was cancelled by her fianc?. PCP discussed FMT but she was told that she does not qualify because it?s not toxin, just antigen. ROS Const Constitutional: No fatigue, malaise, night sweats, weight change, sleep problems, abnormal sleep pattern or change in appetite ENT ENT: No difficulty swallowing, hoarseness or sore throat Cardio Cardiology: No chest pain at rest Gastro GI: No abdominal pain, belching, bloating, change in bowel habits, change in stool character, coffee ground emesis, constipation, cramping, diarrhea, difficulty swallowing, feeling full early, excessive flatus, incontinent of stools, Vomiting blood/hematemesis, Blood in stool, loose stools, Black,tarry stools, nausea/dyspepsia, pain with swallowing, vomiting or other Musc Musculoskeletal: No joint pain Skin Skin: No yellowing of the eye or itchy eyes Neuro Neurology: No behavioral changes Psych Psychiatric: No abnormal sleep pattern, No anxiety, No behavioral changes, No change in appetite and No depression Endo Endocrine: No fatigue or weight change Aller/Imm Allergy/Immunologic: No itchy eyes Alistair/Lymp Hematologic/Lymphatic: No easy bleeding or easy bruising Exam Const General: cooperative and comfortable Nutritional Appearance: average body habitus and well nourished [facility] Head: normal to inspection Ears: hearing grossly normal bilaterally Nose: external nose normal Face and sinus: normal facial exam Mouth: oral mucosae normal Throat: posterior oropharynx normal Eyes General: appearance normal, both eyes and all related structures Neck Neck: normal visual inspection Chest Chest palpation & inspection: normal inspection of the chest and normal palpation of entire chest wall Resp Effort & Inspection: normal respiratory effort Auscultation: Bilateral: Clear to Auscultation Cardio Palpation: normal PMI Rate: regular rate Rhythm: regular rhythm GI Inspection: normal to inspection Auscultation: normal bowel sounds Percussion: normal to percussion Palpation: no hepatosplenomegaly Skin General: no rashes or lesions noted Neuro General: patient alert Extrem General: normal to inspection Psych Affect: normal affect Quality Reporting Tobacco Screening ([facility]) Smoking Status: Never smoker Assessment and Plan Assessment and Plan (1) Diarrhea: ?Status:?Acute ? ? ? Orders:?Orders: ? Comprehensive Metabolic Profil 01/23/22 ? ? ? CRP 01/23/22 ? ? ? LDH 01/23/22 ? ? ? CBC W/Diff, Automated 01/23/22 ? ? ? Erythrocyte Sed Rate 01/23/22 ? ? ? CARLOS Comprehensive Panel 01/23/22 ? ? ? Calprotectin, Stool 01/23/22 ? ? ? Ova and Parasites 8623 01/23/22 ? ? ? CDIFF (PCR) 01/23/22 ? ? ? ENTERIC PATHOGEN PANEL STOOL 01/23/22 ? ? ? Stool Lactoferrin/WBC 01/23/22 ? ? ? ANCA 01/23/22 ? ? ? Celiac Disease Profile 01/23/22 ? ? ? Immunoglobulins G/A/M/E 01/23/22 ? ? ? Giardia Lamblia, Stool EIA 01/23/22 ? ? ? TAMMY + Protein Elect, Serum 01/23/22 ? ? ? Miscellaneous Lab Procedure 01/23/22 ?Plan - Dr. Valera Friend, DO: We will perform a biochemical analysis to evaluate her diarrhea.? She has a history of C. difficile colitis so she could be a carrier which will result in IBS with diarrhea.? It also increases her risk of developing small bacterial overgrowth and weakened her GI tract immune system for other transient bacterial infections. (2) C. difficile colitis: ?Status:?Acute ? ? ? Orders:?Orders: ? Comprehensive Metabolic Profil 01/23/22 ? ? ? CRP 01/23/22 ? ? ? LDH 01/23/22 ? ? ? CBC W/Diff, Automated 01/23/22 ? ? ? Erythrocyte Sed Rate 01/23/22 ? ? ? CARLOS Comprehensive Panel 01/23/22 ? ? ? Calprotectin, Stool 01/23/22 ? ? ? Ova and Parasites 8623 01/23/22 ? ? ? CDIFF (PCR) 01/23/22 ? ? ? ENTERIC PATHOGEN PANEL STOOL 01/23/22 ? ? ? Stool Lactoferrin/WBC 01/23/22 ? ? ? ANCA 01/23/22 ? ? ? Celiac Disease Profile 01/23/22 ? ? ? Immunoglobulins G/A/M/E 01/23/22 ? ? ? Giardia Lamblia, Stool EIA 01/23/22 ? ? ? TAMMY + Protein Elect, Serum 01/23/22 ? ? ? Miscellaneous Lab Procedure 01/23/22 ?Plan - Dr. Valera Friend, DO: We will repeat the stool test because of her history of multiple episodes of C. difficile.? We will also do biochemical testing for inflammatory bowel disease.? We will give her cholestyramine and sulcal fate therapy because she has had some success with that in the past. Plan Details Other Medications: ?New: ? cholestyramine (with sugar) 4 gram ?? administer w/meal; avoid other meds within 1hr before or 4-6hr after dose 4 grams? PO DAILY 60 ea 1RF ? ? ? sucralfate 10 mL? PO BID 400 mL 0RF ? ? Is I have re-examined the patient. There are no clinical changes since date of exam.
[2022-04-30] MEDS: Lactated Ringers 1,000 ML 15 ML IV (08:08)
--- NOTE | 2022-04-30 08:45 | IMM_PTH ---
PATIENT: DERICK SCHUSTER LOC: EN U#:[id number] AGE/SX: 46/F ROOM: RE04/30/[address]: Dr. Soto Taylor DO : 1975 BED: DIS: 04/30/2022 SPEC #: [id number] RECD: 04/30/22 12:48 STATUS: KWADWO REQ #: [id number] MARCELINA: 04/30/22 08:[address]: Soto Taylor DEPT: IMMUNOHISTOCHEMISTRY RECD BY: Alea Rush ENTERED: 04/30/22 12:50 SP TYPE: IMMUNO OTHR DR: STEFANI Conn Tissues: B - Stomach, NOS Procedures: H Pylori (initial) PHYSICIAN & INSTITUTION [place] [id number] SPECIMEN INFORMATION: Tissue Source: B - Gastric antrum biopsy Clinical Info: Diarrhea Specimen Number: [id number] CPT code: 59816 METHODOLOGY: Deparaffinized sections of prefer/formalin-fixed tissue or PAP/DQ stained slides are incubated with monoclonal/polyclonal antibodies/oligonucleotide probes. Localization is made via biotin free immunoperoxidase method. Appropriate controls are performed and reacted as expected. Results on target cell population are indicated in the following table: RESULTS: ANTIBODY / CLONE RESULT Block B H Pylori (polyclonal) negative These tests were developed and their performance characteristics determined by [facility]. They may not have been cleared or approved by the U.S. Food and Drug Administration. The FDA has determined that such clearance or approval is not necessary. The above immunohistochemical/dualISH markers are ordered and reviewed by the Pathologist. INTERPRETATION: B. Gastric antrum, biopsy: Negative for Helicobacter pylori organisms. SJ:nguyen 05/01/2022
--- NOTE | 2022-04-30 09:47 | OP.EGD_ITS ---
Patient Name: Carol Grissom Procedure Date: 04/30/2022 9:00 AM Date of : 1975 Age: 46 Procedure: Upper GI endoscopy Indications: Epigastric abdominal pain, Functional Dyspepsia, Failure to respond to medical treatment Providers: Soto Taylor DO Referring MD: Soto Taylor DO Medicines: Monitored Anesthesia Care Patient Profile: This is a 46 year old female. Refer to note in patient chart for documentation of history and physical. Patient has symptoms of chronic abdominal cramping, acute epigastric abdominal pain and chronic dyspepsia. Complications: No immediate complications. Procedure: Pre-Anesthesia Assessment: - Prior to the procedure, a History and Physical was performed, and patient medications and allergies were reviewed. The patient is competent. The risks and benefits of the procedure and the sedation options and risks were discussed with the patient. All questions were answered and informed consent was obtained. Patient identification and proposed procedure were verified by the physician in the pre-procedure area. Mental Status Examination: alert and oriented. Airway Examination: normal oropharyngeal airway and neck mobility. Respiratory Examination: clear to auscultation. CV Examination: normal. Prophylactic Antibiotics: The patient does not require prophylactic antibiotics. Prior Anticoagulants: The patient has taken no previous anticoagulant or antiplatelet agents. After reviewing the risks and benefits, the patient was deemed in satisfactory condition to undergo the procedure. The anesthesia plan was to use moderate sedation / analgesia (conscious sedation). Immediately prior to administration of medications, the patient was re-assessed for adequacy to receive sedatives. The heart rate, respiratory rate, oxygen saturations, blood pressure, adequacy of pulmonary ventilation, and response to care were monitored throughout the procedure. The physical status of the patient was re-assessed after the procedure. After obtaining informed consent, the endoscope was passed under direct vision. Throughout the procedure, the patient's blood pressure, pulse, and oxygen saturations were monitored continuously. The colonoscope was introduced through the mouth, and advanced to the second part of duodenum. The upper GI endoscopy was accomplished without difficulty. The patient tolerated the procedure well. Scope In: 9:10:03 AM Scope Out: 9:19:06 AM Total Procedure Duration Time 0 hours 9 minutes 3 seconds Findings: The Z-line was irregular and was found 37 cm from the incisors. Biopsies were taken with a cold forceps for histology. Verification of patient identification for the specimen was done. Estimated blood loss was minimal. Patchy moderate inflammation characterized by congestion (edema), erosions and erythema was found in the gastric body and in the gastric antrum. Biopsies were taken with a cold forceps for histology. Verification of patient identification for the specimen was done. Estimated blood loss was minimal. 2 small fundic gland polyps were seen. The second portion of the duodenum was normal. Biopsies were taken with a cold forceps for histology. Verification of patient identification for the specimen was done. Estimated blood loss was minimal. Impression: - Z-line irregular, 37 cm from the incisors. Biopsied. - Gastritis. Biopsied. - Normal second portion of the duodenum. Biopsied. Recommendation: - Discharge patient to home. - Resume previous diet. - Continue present medications. - Await pathology results. Procedure Code(s): --- Professional --- 14181, Esophagogastroduodenoscopy, flexible, transoral; with biopsy, single or multiple CPT copyright 2017 [employer]. All rights reserved. The codes documented in this report are preliminary and upon death surveys coder review may be revised to meet current compliance requirements. Soto Taylor DO 04/30/2022 9:47:05 AM This report has been signed electronically. Number of Addenda: 1 Note Initiated On: 04/30/2022 9:00 AM Addendum Number: 1 Addendum Date: 07/03/2022 6:33:57 AM MAC was used as sedation for this procedure. Soto Taylor DO 07/03/2022 6:34:00 AM This report has been signed electronically.
--- NOTE | 2022-04-30 09:48 | OP.CCLET_ITS ---
07/03/2022 Michi Conn Re : Upper GI endoscopy procedure for Carol Grissom Dear Chris This procedure was performed on Saturday, April 30, 2022. My impressions and recommendations are as follows: Impressions : - Z-line irregular, 37 cm from the incisors. Biopsied. - Gastritis. Biopsied. - Normal second portion of the duodenum. Biopsied. Recommendations : - Discharge patient to home. - Resume previous diet. - Continue present medications. - Await pathology results. My findings are described in the full procedure note, which is enclosed. If I can be of further assistance, please feel free to contact me at . Sincerely, Soto Taylor DO 04/30/2022 9:47:05 AM This report has been signed electronically.
--- NOTE | 2022-04-30 09:52 | OP.CCLET_ITS ---
07/03/2022 Michi Conn Re : Colonoscopy procedure for Carol Candelario Chris This procedure was performed on Saturday, April 30, 2022. My impressions and recommendations are as follows: Impressions : - Congested mucosa in the recto-sigmoid colon and in the sigmoid colon. Biopsied. - Diverticulosis in the recto-sigmoid colon and in the sigmoid colon. - The examined portion of the ileum was normal. Biopsied. Recommendations : - Discharge patient to home. - Resume previous diet. - Continue present medications. - Await pathology results. - Repeat colonoscopy in 5 years for surveillance. My findings are described in the full procedure note, which is enclosed. If I can be of further assistance, please feel free to contact me at . Sincerely, Soto Friend, 04/30/2022 9:51:54 AM This report has been signed electronically.
--- NOTE | 2022-04-30 09:52 | OP.COLON_ITS ---
Patient Name: Carol Grissom Procedure Date: 04/30/2022 9:19 AM Date of : 1975 Age: 46 Procedure: Colonoscopy Indications: Generalized abdominal pain, Clinically significant diarrhea of unexplained origin Providers: Soto Talyor DO Referring MD: Soto Taylor DO Medicines: Monitored Anesthesia Care Patient Profile: This is a 46 year old female. Refer to note in patient chart for documentation of history and physical. Patient has symptoms of chronic abdominal cramping, acute epigastric abdominal pain and chronic dyspepsia. Last Colonoscopy: date unknown. Unable to locate last colonoscopy report. Complications: No immediate complications. Procedure: Pre-Anesthesia Assessment: - Prior to the procedure, a History and Physical was performed, and patient medications and allergies were reviewed. The patient is competent. The risks and benefits of the procedure and the sedation options and risks were discussed with the patient. All questions were answered and informed consent was obtained. Patient identification and proposed procedure were verified by the physician in the pre-procedure area. Mental Status Examination: alert and oriented. Airway Examination: normal oropharyngeal airway and neck mobility. Respiratory Examination: clear to auscultation. CV Examination: normal. Prophylactic Antibiotics: The patient does not require prophylactic antibiotics. Prior Anticoagulants: The patient has taken no previous anticoagulant or antiplatelet agents. After reviewing the risks and benefits, the patient was deemed in satisfactory condition to undergo the procedure. The anesthesia plan was to use moderate sedation / analgesia (conscious sedation). Immediately prior to administration of medications, the patient was re-assessed for adequacy to receive sedatives. The heart rate, respiratory rate, oxygen saturations, blood pressure, adequacy of pulmonary ventilation, and response to care were monitored throughout the procedure. The physical status of the patient was re-assessed after the procedure. After I obtained informed consent, the scope was passed under direct vision. Throughout the procedure, the patient's blood pressure, pulse, and oxygen saturations were monitored continuously. The colonoscope was introduced through the anus and advanced to the terminal ileum. The colonoscopy was performed without difficulty. The patient tolerated the procedure well. The quality of the bowel preparation was good. Scope In: 9:21:42 AM Scope Withdrawal Time 0 hours 10 minutes 14 seconds Scope Out: 9:38:15 AM Total Procedure Duration Time 0 hours 16 minutes 33 seconds Findings: The perianal and digital rectal examinations were normal. An area of mildly congested mucosa was found in the recto-sigmoid colon and in the sigmoid colon. Biopsies were taken with a cold forceps for histology. Verification of patient identification for the specimen was done. Estimated blood loss was minimal. A few small-mouthed diverticula were found in the recto-sigmoid colon and sigmoid colon. The terminal ileum appeared normal. Biopsies were taken with a cold forceps for histology. Verification of patient identification for the specimen was done. Estimated blood loss was minimal. Impression: - Congested mucosa in the recto-sigmoid colon and in the sigmoid colon. Biopsied. - Diverticulosis in the recto-sigmoid colon and in the sigmoid colon. - The examined portion of the ileum was normal. Biopsied. Recommendation: - Discharge patient to home. - Resume previous diet. - Continue present medications. - Await pathology results. - Repeat colonoscopy in 5 years for surveillance. Procedure Code(s): --- Professional --- 63838, Colonoscopy, flexible; with biopsy, single or multiple CPT copyright 2017 [employer]. All rights reserved. The codes documented in this report are preliminary and upon bill distributor review may be revised to meet current compliance requirements. Soto Taylor DO 04/30/2022 9:51:54 AM This report has been signed electronically. Number of Addenda: 1 Note Initiated On: 04/30/2022 9:19 AM Addendum Number: 1 Addendum Date: 07/03/2022 6:34:08 AM MAC was used as sedation for this procedure. Soto Taylor DO 07/03/2022 6:34:13 AM This report has been signed electronically.
--- NOTE | 2022-04-30 10:49 | COLBX_PTH ---
PATIENT: DERICK SCHUSTER LOC: EN U#:[id number] AGE/SX: 46/F ROOM: RE04/30/[address]: Dr. Soto Taylor DO : 1975 BED: DIS: 04/30/2022 SPEC #: [id number] RECD: 04/30/22 10:49 STATUS: KWADWO DILL #: [id number] MARCELINA: 04/30/22 10:[address]: Soto Taylor DEPT: SURGICAL PATHOLOGY RECD BY: Dioni Navarrete ENTERED: 04/30/22 11:47 SP TYPE: COLON BX OTHR DR: STEFANI Conn Tissues: A - Duodenum, NOS B - Gastric mucous membrane C - Esophagus, NOS D - Ileum, NOS E - Sigmoid colon biopsy Procedures: Special Stain Group II Surgery Specimen Level IV Alcian Blue/PAS (control) HEADER OPERATION: Colonoscopy, EGD ([facility]) PRE-OP DIAGNOSIS: Diarrhea TISSUE SUBMITTED: A ? Duodenum biopsy, B ? Gastric antrum biopsy, C ? Distal esophagus biopsy, D ? Terminal ileum biopsy, E ? Sigmoid colon biopsy, rule out colitis MICROSCOPIC DIAGNOSIS A. Duodenum, biopsy: Fragments of duodenal mucosa, no pathologic diagnosis. B. Gastric antrum, biopsy: Mild gastritis. See microscopic description and comment. C. Distal esophagus, biopsy: Fragments of gastroesophageal mucosa with mild chronic inflammation. Intestinal metaplasia (goblet cell metaplasia) not identified. See comment. D. Terminal ileum, biopsy: Fragments of small intestinal mucosa, no pathologic diagnosis. E. Sigmoid colon, biopsy: Fragments of colonic mucosa, no pathologic diagnosis. SJ:nguyen 05/01/2022 COMMENT B. The results of immunohistochemistry for Helicobacter pylori will be reported separately ([id number]). C. Alcian blue/PAS stain with matched control is used in the evaluation of the specimen. MICROSCOPIC DESCRIPTION Slides are reviewed. B. The specimen shows fragments of gastric mucosa with chronic inflammatory cell infiltrates in the lamina propria consisting of lymphocytes and plasma cells, consistent with mild chronic gastritis. GROSS DESCRIPTION A - Received in fixative is one container labeled with the patient's name and designated duodenum biopsy. The specimen consists of multiple irregular fragments of light steen soft tissue that in aggregate measure 0.8 x 0.5 x 0.1 cm. The specimen is totally submitted in one cassette. B - Received in fixative is one container labeled with the patient's name and designated gastric antrum biopsy. The specimen consists of multiple irregular fragments of light steen soft tissue that in aggregate measure 1 x 0.3 x 0.1 cm. The specimen is totally submitted in one cassette. C - Received in fixative is one container labeled with the patient's name and designated distal esophagus biopsy. The specimen consists of multiple irregular fragments of light steen soft tissue that in aggregate measure 1 x 0.3 x 0.1 cm. The specimen is totally submitted in one cassette. D - Received in fixative is one container labeled with the patient's name and designated terminal ileum biopsy. The specimen consists of two irregular fragments of light steen soft tissue that in aggregate measure 0.6 x 0.3 x 0.1 cm. The specimen is totally submitted in one cassette. E - Received in fixative is one container labeled with the patient's name and designated sigmoid colon biopsy, rule out colitis. The specimen consists of multiple irregular fragments of light steen soft tissue that in aggregate measure 0.8 x 0.5 x 0.1 cm. The specimen is totally submitted in one cassette. / SJ:rg 04/30/2022 TC:3 CPT: 74346 x5, [id number]
== END 2022-04-30 10:22 | disposition home or self-care (01) ==
LOC: EN 07:40 → AC 07:42
PROVIDERS: Referring Provider Internal Medicine Gastroenterology; Visit Provider Internal Medicine Gastroenterology
PROC: 0DJD8ZZ Inspection of Lower Intestinal Tract, Via Natural or Artificial Opening Endoscopic (ICD-10-PCS; CPT 45378; principal; 2022-04-30 08:40)
DX: K57.30 Diverticulosis of large intestine without perforation or abscess without bleeding (principal); K58.0 Irritable bowel syndrome with diarrhea; K29.70 Gastritis, unspecified, without bleeding; Z86.73 Personal history of transient ischemic attack (TIA), and cerebral infarction without residual deficits; E78.5 Hyperlipidemia, unspecified; Q21.1 Atrial septal defect
CPT/HCPCS: 45380; 43239; 87493; 87506; 88305; 88313; 88342; J7120; J2405

== ENCOUNTER → 2022-06-03 | Outpatient (CLI) | payer MEDICAID, SELFPAY ==
[2022-06-03 08:00] LABS: Erythrocyte Sedimentation Rate 8 mm/hr (0-30)
[2022-06-03 08:03] LABS: Absolute Neutrophil Count 2.5 X10^3/uL (2.0-7.7); Basophil# 0.05 X10^3/uL; Hematocrit 39.9 % (37-47); Hemoglobin 12.6 g/dL (12.0-15.0); Lymphocyte % 34.3 % (19-41); Mean Corp Hgb Conc 31.6 g/dL (32-36); Mean Corpuscular Hgb 29.5 pg (27.0-32.0); Mean Corpuscular Volume 93.4 fL (81-99); Mean Platelet Vol. 12.7 fl (6.2-12.0); Monocyte# 0.37 X10^3/uL; Monocyte% 7.5 % (0-10); NRBC Flagged by Analyzer 0 % (0-5); Neutrophil # 2.53 X10^3/uL (2.7-7.7); Platelet Count 197 K/mm3 (150-450); RBC Distribution Width CV 12.6 % (11.6-14.6); RBC Distribution Width SD 43.6 fl (35.1-43.9); Red Blood Count 4.27 M/mm3 (4.2-5.4)
[2022-06-03 08:27] LABS: AST(SGOT) 14 U/L (15-37); Alanine Aminotransfer ALT/SGPT 19 U/L (13-56); Albumin, Serum 3.6 g/dL (3.2-5.0); Alkaline Phosphatase 72 U/L (45-117); Anion Gap 9 (5-15); BUN 19 mg/dL (7-18); Calcium,Total 8.8 mg/dL (8.5-10.1); Chloride 104 mmol/L (98-107); EST Glomerular Filtration Rate 95 mL/min (>60); Est Glom Filt Rate - Afr Amer 115 mL/min (>60); Globulin 3.6 g/dL (2.2-4.2); Glucose 103 mg/dL (74-106); Potassium 3.8 mmol/L (3.5-5.1); Protein, Total 7.2 g/dL (6.4-8.2); Sodium Level 142 mmol/L (136-145)
== END | disposition home or self-care (01) ==
LOC: LAB 07:50
DX: M05.79 Rheumatoid arthritis with rheumatoid factor of multiple sites without organ or systems involvement (principal)
CPT/HCPCS: 36415; 80053; 85025; 85652; 86141

== ENCOUNTER 2022-06-13 16:19 | Emergency (ER) | payer MEDICAID, SELFPAY ==
[2022-06-13 16:20] VITALS: BP 149/84; PULSE 83; RESP 16; TEMP 36.6; O2SAT 98
[2022-06-13 16:21] VITALS: BP 149/84; PULSE 83; RESP 16; TEMP 36.6; O2SAT 98; BMI 22.4
--- NOTE | 2022-06-13 16:44 | EDS_ITS ---
HPI History of Present Illness Chief Complaint: Nausea/Vomiting Informant: patient Narrative Narrative: Patient presents with nausea and vomiting. She also does have diarrhea. Patient started bowel prep yesterday evening. This always causes nausea and vomiting for her. So she took Zofran twice with each drinking of the bowel prep. She also took Zofran about 3:00 this afternoon. The bowel prep was done for video endoscopy camera. She swallowed this at about 8 AM. She started getting worsening nausea and vomiting about 930. She has not vomited the camera/pill. She has not seen it in the stool. She is having cramping. Nausea and vomiting and even the diarrhea is not uncommon for her but this is worse. Zofran has not helped. No fevers. She has some cramping but no significant pain in the abdomen. She has not vomiting blood or having blood in the stool. [facility] Medical History Anxiety Anxiety Arthritis Cardiology follow-up encounter COVID-19 virus detected (10/01/20) Fibromyalgia Gastric reflux Herpes labialis History of echocardiogram History of hiatal hernia History of stress test History of TIA (transient ischemic attack) (11/25/20) Hyperlipidemia IBS (irritable bowel syndrome) Inflammatory polyarthritis Iron deficiency Migraine headache Patent foramen ovale Post-menopausal Rheumatoid arthritis Vision changes Wears glasses Home Medications acyclovir 400 mg tablet 400 mg PO DAILY PRN cold sore 04/07/16 [History Last Taken 08/15/17] alprazolam 0.5 mg tablet 0.5 mg PO DAILY 04/07/16 [History Last Taken 08/15/17] estradiol 1 mg tablet 1 mg PO DAILY hormones 04/07/16 [History Last Taken 08/15/17] loperamide 2 mg capsule 4 mg PO DAILY diarrhea 04/07/16 [History Last Taken 08/15/17] Cholecalciferol (Vitamin D3) [Vitamin D3] 25 mcg PO DAILY vitamin 11/25/20 [History Last Taken Unknown] leflunomide 10 mg tablet 10 mg PO DAILY RA 11/25/20 [History Last Taken Unknown] gabapentin 300 mg capsule 300 mg PO QHS 12/26/20 [History Last Taken Unknown] aspirin 81 mg tablet,delayed release (Adult Aspirin Regimen) 81 mg PO DAILY #90 tabs 02/25/22 [Rx Last Taken Unknown] colestipol 1 gram tablet 1 g PO ONCE #30 tabs 04/15/22 [Rx Last Taken Unknown] famotidine 20 mg tablet 40 tab PO BID 04/23/22 [History Last Taken Unknown] ibuprofen 600 mg tablet 600 mg PO Q6H PRN Pain 04/23/22 [History Last Taken Unknown] sod picosulf 10 mg-magnes 3.5 gram-citric 12 gram/160 mL oral solution (Clenpiq) 160 ml PO DAILY 2 doses #320 mL 05/14/22 [Rx Last Taken Unknown] ondansetron 4 mg disintegrating tablet 4 mg PO Q8H PRN nausea and vomiting #10 tabs 06/13/22 [Rx Last Taken Unknown] promethazine 25 mg tablet 25 mg PO TID PRN nausea and vomiting #10 tabs 06/13/22 [Rx Last Taken Unknown] Allergy/AdvReac Type Severity Reaction Status Date / Time morphine Allergy Other Verified 04/30/22 08:01 bacitracin AdvReac Rash Verified 04/30/22 08:01 [From Neosporin ([id number])] metronidazole [From Flagyl] AdvReac Nausea Verified 04/30/22 08:01 neomycin AdvReac Rash Verified 04/30/22 08:01 [From Neosporin ([id number])] polymyxin B AdvReac Rash Verified 04/30/22 08:01 [From Neosporin ([id number])] sucralfate [From Carafate] AdvReac Nausea Verified 04/30/22 08:01 Surgical History History of cholecystectomy History of hysterectomy History of tonsillectomy Hx of foot surgery Social History Smoking Status: Never smoker ROS ROS ED Constitutional Constitutional ED: Denies chills or fever(s) Eyes Eyes: Denies change in vision ENT ENT ED: Denies sore throat Cardiovascular Cardiovascular: Denies chest pain or palpitations Respiratory/Chest Respiratory/Chest: Denies cough or dyspnea Gastrointestinal Gastrointestinal: Reports diarrhea, nausea and vomiting; Denies abdominal pain, constipation or melena Genitourinary Genitourinary ED: Denies dysuria or hematuria Musculoskeletal Musculoskeletal: Denies myalgias Integumentary Denies rash Neurologic Neurologic: Denies headache(s) Psychiatric Psychiatric: Reports anxiety Endocrine Endocrinology: Denies polydipsia or polyuria Hematologic/Lymphatic Hematologic/Lymphatic: Denies easy bleeding or easy bruising Allergic/Immunologic Allergic/Immunologic ED: Denies urticaria EXAM Physical Exam Const Vital Signs: 06/13/22 16:21 06/13/22 16:20 Temperature 97.8 F 97.8 F Temperature Source Temporal Temporal Pulse Rate 83 83 Respiratory Rate 16 16 Blood Pressure 149/84 H 149/84 H Blood Pressure Mean 105 105 Pulse Ox 98 98 Oxygen Delivery Method Room Air Room Air Positive well nourished and well developed General Appearance ED: well developed and NAD; Negative for cyanotic or diaphoretic HEENT Reports dry mucous membranes Mouth ED: Yes dry mucous membranes Mouth: dry mucous membranes Eyes General Eye ED: Negative for scleral icterus Neck supple Resp normal respiratory effort and clear to auscultation bilaterally Effort and Inspection: Negative for retractions or pain with movement Cardio regular rate and regular rhythm; Negative for no murmurs GI non-tender and no masses GI Narrative: Bowel sounds are mildly increased. Abdomen is nondistended. There is really no notable tenderness. No mass. No hernia with straining. Auscultation: hyperactive bowel sounds Narrative: No CVA tender Back/Spine no CVA tenderness Neuro oriented x3 Sensorium / Orientation: alert Psych mental status grossly normal Skin no rashes or lesions noted MDM MDM MDM Narrative Medical decision making narrative: We did check blood work to make sure there are no marked abnormalities. With her bowel prep that is her diarrhea she certainly could have had electrolyte problems. Her electrolytes liver function test and CBC are all normal. She is feeling better. 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 The plan is symptomatic control. We will write for some more Zofran and also Phenergan. We discussed reasons to return and expected course. Lab Data Attestation: I reviewed the patient's lab results. Labs: Laboratory Results - last 24 hr 06/13/22 06/13/22 16:56 16:56 WBC 6.0 RBC 4.27 Hgb 12.9 Hct 40.5 MCV 94.8 MCH 30.2 MCHC 31.9 L RDW Std Deviation 43.4 RDW Coeff of Milla 12.4 Plt Count 192 MPV 12.5 H Immature Gran % (Auto) 0.300 Neut % (Auto) 81.2 H Lymph % (Auto) 12.4 L [place] % (Auto) 4.8 Eos % (Auto) 0.8 Baso % (Auto) 0.5 Absolute Neuts (auto) 4.9 Absolute Lymphs (auto) 0.75 L Nucleated RBC % 0 Sodium 144 Potassium 3.6 Chloride 106 Carbon Dioxide 29.0 Anion Gap 9 BUN 9 Creatinine 0.81 Estim Creat Clear Calc 82.11 Est GFR (MDRD) Af Amer 98 Est GFR (MDRD) Non-Af 81 BUN/Creatinine Ratio 11.1 Glucose 110 H Calcium 9.3 Total Bilirubin 0.30 AST 14 L ALT 18 Alkaline Phosphatase 84 Total Protein 7.7 Albumin 4.2 Globulin 3.5 Albumin/Globulin Ratio 1.2 Discharge Plan Triage Chief Complaint: Nausea/Vomiting ED Provider: Howie Mcnally Dx/Rx/DC Orders Clinical Impression: Nausea vomiting and diarrhea Instructions: ED Vomiting and Diarrhea ... Prescriptions: New ondansetron 4 mg tablet,disintegrating 4 mg PO Q8H PRN (Reason: nausea and vomiting) Qty: 10 0RF promethazine 25 mg tablet 25 mg PO TID PRN (Reason: nausea and vomiting) Qty: 10 0RF No Action Clenpiq 10 mg-3.5 gram -12 gram/160 mL solution 160 ml PO DAILY Qty: 320 0RF Rx Instructions: take first dose at 5-9PM evening before colonoscopy; 2nd dose the next day approximately 5 hrs before colonoscopy loperamide 2 MG capsule 4 mg PO DAILY Label Comments: diarrhea alprazolam 0.5 MG tablet 0.5 mg PO DAILY Label Comments: anxiety acyclovir 400 MG tablet 400 mg PO DAILY PRN (Reason: cold sore) Label Comments: anti viral estradiol 1 MG tablet 1 mg PO DAILY Label Comments: hormone leflunomide 10 MG tablet 10 mg PO DAILY Cholecalciferol (Vitamin D3) [Vitamin D3] 25 MCG tablet 25 mcg PO DAILY famotidine 20 mg tablet 40 tab PO BID Label Comments: 1 tablet by mouth as directed ibuprofen 600 mg Tablet 600 mg PO Q6H PRN (Reason: Pain) gabapentin 300 mg capsule 300 mg PO QHS aspirin [Adult Aspirin Regimen] 81 mg tablet,delayed release (DR/EC) 81 mg PO DAILY Qty: 90 3RF colestipol 1 gram tablet 1 g PO ONCE Qty: 30 1RF Rx Instructions: take at least 4 hours before or 1 hour after other drugs Primary Care Provider: Berna Perez Referrals: Soto Taylor DO [Med Staff - Active Staff] - Keep [facility] appointment Berna Perez PA [Primary Care Provider] - Disposition Disposition: Home, Self Care
[2022-06-13] MEDS: Ondansetron 4 MG/2 ML Vial IV (16:57)
[2022-06-13] MEDS: 0.9% Normal Saline 1,000 ML 1000 ML IV (16:58)
[2022-06-13] MEDS: proMETHazine 25 MG/ML Syringe 12.5 MG IM ×2 (16:58→18:18)
[2022-06-13 17:05] LABS: Absolute Lymphocyte Count 0.75 X10^3/uL (0.83-4.51); Absolute Neutrophil Count 4.9 X10^3/uL (2.0-7.7); Basophil# 0.03 X10^3/uL; Basophil% 0.5 % (0-1); Eosinophil# 0.05 X10^3/uL; Eosinophils% 0.8 % (0-5); Hematocrit 40.5 % (37-47); Hemoglobin 12.9 g/dL (12.0-15.0); Lymphocyte # 0.75 X10^3/ul (0.83-4.51); Lymphocyte % 12.4 % (19-41); Mean Corp Hgb Conc 31.9 g/dL (32-36); Mean Corpuscular Hgb 30.2 pg (27.0-32.0); Mean Corpuscular Volume 94.8 fL (81-99); Mean Platelet Vol. 12.5 fl (6.2-12.0); Monocyte# 0.29 X10^3/uL; Monocyte% 4.8 % (0-10); NRBC Flagged by Analyzer 0 % (0-5); Neutrophil % 81.2 % (47-70); Platelet Count 192 K/mm3 (150-450); RBC Distribution Width CV 12.4 % (11.6-14.6); RBC Distribution Width SD 43.4 fl (35.1-43.9); Red Blood Count 4.27 M/mm3 (4.2-5.4)
[2022-06-13 17:17] LABS: ALB/GLOB Ratio 1.2 RATIO (0.9-2.4); AST(SGOT) 14 U/L (15-37); Alanine Aminotransfer ALT/SGPT 18 U/L (13-56); Albumin, Serum 4.2 g/dL (3.2-5.0); Alkaline Phosphatase 84 U/L (45-117); Anion Gap 9 (5-15); BUN 9 mg/dL (7-18); BUN/Creat Ratio 11.1 RATIO (10-20); Calcium,Total 9.3 mg/dL (8.5-10.1); Chloride 106 mmol/L (98-107); Creatinine, Serum 0.81 mg/dL (0.55-1.02); EST Glomerular Filtration Rate 81 mL/min (>60); Est Glom Filt Rate - Afr Amer 98 mL/min (>60); Estimated Creatinine Clearance 82.11 ml/min; Globulin 3.5 g/dL (2.2-4.2); Glucose 110 mg/dL (74-106); Potassium 3.6 mmol/L (3.5-5.1); Protein, Total 7.7 g/dL (6.4-8.2); Sodium Level 144 mmol/L (136-145)
--- NOTE | 2022-06-13 18:50 | ED.RN ---
pt up to bathroom, vomitting. pink tinge noted. phenergan was not effective. MD notified.
[2022-06-13] MEDS: LORazepam 2 MG/ML Syringe 1 MG IV (19:13)
== END 2022-06-13 19:49 | disposition home or self-care (01) ==
PROVIDERS: Emergency Provider Emergency Medicine; Visit Provider Emergency Medicine
DX: R11.2 Nausea with vomiting, unspecified (principal); R19.7 Diarrhea, unspecified; E78.5 Hyperlipidemia, unspecified; R10.9 Unspecified abdominal pain; Z86.16 Personal history of COVID-19; K21.9 Gastro-esophageal reflux disease without esophagitis
CPT/HCPCS: 80053; 85025; 99283; J7030; A4216; J2405

== ENCOUNTER → 2022-06-18 | Outpatient (CLI) | payer MEDICAID, SELFPAY ==
[2022-06-18 10:01] LABS: CRP < 2.90 mg/L (0.0-3.0)
== END | disposition home or self-care (01) ==
PROVIDERS: Visit Provider Registered Nurse
DX: M05.79 Rheumatoid arthritis with rheumatoid factor of multiple sites without organ or systems involvement (principal)
CPT/HCPCS: 86140

== ENCOUNTER → 2022-07-04 | Outpatient (CLI) | payer MEDICAID, SELFPAY ==
[2022-07-04 11:47] LABS: Erythrocyte Sedimentation Rate 3 mm/hr (0-30)
[2022-07-04 12:01] LABS: CRP < 2.90 mg/L (0.0-3.0)
[2022-07-06 15:39] LABS: Gastrin, Serum 89 pg/mL (0-115); H. Pylori Antibody (IgG) 0.11 (0.00-0.79)
== END | disposition home or self-care (01) ==
LOC: LAB 10:39
PROVIDERS: Visit Provider Internal Medicine Gastroenterology
DX: K29.70 Gastritis, unspecified, without bleeding (principal)
CPT/HCPCS: 36415; 82941; 85652; 86140; 86677

== ENCOUNTER → 2022-07-10 | Outpatient (CLI) | payer MEDICAID, SELFPAY | END | disposition home or self-care (01) | LOC: LABSPEC 14:28 | PROVIDERS: Visit Provider Otolaryngology Otolaryngology/Facial Plastic Surgery | DX: J02.9 Acute pharyngitis, unspecified (principal); Z11.59 Encounter for screening for other viral diseases | CPT/HCPCS: 87635; 87070; 87077; U0003; U0005 ==

== ENCOUNTER → 2022-08-01 | Outpatient (CLI) | payer OTHER, MEDICAID, SELFPAY ==
[2022-08-08 14:30] LABS: Anti-Parietal Cell AB, QN 1.6 Units (0.0-20.0)
[2022-08-11 05:06] LABS: Alternaria alternata <0.10 kU/L (Class 0); Aspergillus fumigatus <0.10 kU/L (Class 0); Bahia Grass <0.10 kU/L (Class 0); Beef <0.10 kU/L (Class 0); Bermuda Grass <0.10 kU/L (Class 0); Bluegrass, Kentucky <0.10 kU/L (Class 0); Cat Hair/Dander, Standard <0.10 kU/L (Class 0); Cedar, Mountain <0.10 kU/L (Class 0); Cladosporium herbarum <0.10 kU/L (Class 0); Clam <0.10 kU/L (Class 0); Cockroach, American <0.10 kU/L (Class 0); Codfish <0.10 kU/L (Class 0); Corn <0.10 kU/L (Class 0); D farinae Mite <0.10 kU/L (Class 0); D pteronyssinus <0.10 kU/L (Class 0); Dog Epithelia <0.10 kU/L (Class 0); Egg, White <0.10 kU/L (Class 0); Egg, Whole <0.10 kU/L (Class 0); Elm, American White <0.10 kU/L (Class 0); Hazelnut Tree <0.10 kU/L (Class 0); Hickory, White <0.10 kU/L (Class 0); Johnson Grass <0.10 kU/L (Class 0); Maple/Box Elder <0.10 kU/L (Class 0); Milk (Cow) <0.10 kU/L (Class 0); Mucor racemosus <0.10 kU/L (Class 0); Mugwort <0.10 kU/L (Class 0); Mulberry, White <0.10 kU/L (Class 0); Nettle <0.10 kU/L (Class 0); Oak, White <0.10 kU/L (Class 0); Peanut <0.10 kU/L (Class 0); Penicillium chrysogen <0.10 kU/L (Class 0); Pigweed, Rough <0.10 kU/L (Class 0); Plantain, English <0.10 kU/L (Class 0); Pork <0.10 kU/L (Class 0); Ragweed, Short/Common <0.10 kU/L (Class 0); SCALLOP <0.10 kU/L (Class 0); SESAME SEED <0.10 kU/L (Class 0); Sheep Sorrel(Dock) <0.10 kU/L (Class 0); Shrimp <0.10 kU/L (Class 0); Soybean <0.10 kU/L (Class 0); Stemphylium herbarum <0.10 kU/L (Class 0); Sweet Gum <0.10 kU/L (Class 0); Sycamore, American <0.10 kU/L (Class 0); Walnut, (Food) <0.10 kU/L (Class 0); Wheat <0.10 kU/L (Class 0)
[2022-08-11 09:03] LABS: Chocolate <0.10 kU/L (Class 0)
== END | disposition home or self-care (01) ==
LOC: LAB 13:39
PROVIDERS: Internal Medicine Gastroenterology; Visit Provider Nurse Practitioner Adult Health
DX: K29.70 Gastritis, unspecified, without bleeding (principal); R19.7 Diarrhea, unspecified
CPT/HCPCS: 36415; 83516; 86003; 86005; 86340

== ENCOUNTER → 2022-08-15 | Outpatient (CLI) | payer OTHER, MEDICAID, SELFPAY ==
[2022-08-18 10:28] LABS: Giardia Lamblia, Stool EIA Negative (Negative)
[2022-08-18 19:08] LABS: Calprotectin, Stool 51 ug/g (0-120)
== END | disposition home or self-care (01) ==
LOC: LAB 08:25
PROVIDERS: Visit Provider Internal Medicine Gastroenterology
DX: R19.7 Diarrhea, unspecified (principal); A04.72 Enterocolitis due to Clostridium difficile, not specified as recurrent
CPT/HCPCS: 83630; 83993; 87177; 87209; 87329

== ENCOUNTER → 2022-09-03 | Outpatient (CLI) | payer OTHER, MEDICAID, SELFPAY ==
[2022-09-03 15:23] LABS: Absolute Lymphocyte Count 2.27 X10^3/uL (0.83-4.51); Absolute Neutrophil Count 2.6 X10^3/uL (2.0-7.7); Basophil# 0.06 X10^3/uL; Eosinophils% 5.2 % (0-5); Hematocrit 40.4 % (37-47); Hemoglobin 12.5 g/dL (12.0-15.0); Lymphocyte # 2.27 X10^3/ul (0.83-4.51); Lymphocyte % 39.4 % (19-41); Mean Corp Hgb Conc 30.9 g/dL (32-36); Mean Corpuscular Hgb 29.1 pg (27.0-32.0); Mean Platelet Vol. 12.9 fl (6.2-12.0); Monocyte# 0.53 X10^3/uL; Monocyte% 9.2 % (0-10); NRBC Flagged by Analyzer 0 % (0-5); Neutrophil # 2.59 X10^3/uL (2.7-7.7); Platelet Count 201 K/mm3 (150-450); RBC Distribution Width CV 13.2 % (11.6-14.6); RBC Distribution Width SD 45.1 fl (35.1-43.9); White Blood Count 5.8 K/mm3 (4.4-11.0)
[2022-09-03 15:42] LABS: Erythrocyte Sedimentation Rate 9 mm/hr (0-30)
[2022-09-03 15:54] LABS: ALB/GLOB Ratio 1.1 RATIO (0.9-2.4); AST(SGOT) 8 U/L (15-37); Alanine Aminotransfer ALT/SGPT 19 U/L (13-56); Albumin, Serum 3.7 g/dL (3.2-5.0); Alkaline Phosphatase 69 U/L (45-117); Anion Gap 1 (5-15); BUN 17 mg/dL (7-18); BUN/Creat Ratio 24.5 RATIO (10-20); CRP < 2.90 mg/L (0.0-3.0); Calcium,Total 9.2 mg/dL (8.5-10.1); Chloride 109 mmol/L (98-107); Creatinine, Serum 0.69 mg/dL (0.55-1.02); EST Glomerular Filtration Rate 97 mL/min (>60); Est Glom Filt Rate - Afr Amer 117 mL/min (>60); Globulin 3.5 g/dL (2.2-4.2); Glucose 91 mg/dL (74-106); Potassium 4.1 mmol/L (3.5-5.1); Protein, Total 7.2 g/dL (6.4-8.2); Sodium Level 141 mmol/L (136-145)
== END | disposition home or self-care (01) ==
LOC: LABSPEC 15:07
PROVIDERS: Visit Provider Registered Nurse
DX: M05.79 Rheumatoid arthritis with rheumatoid factor of multiple sites without organ or systems involvement (principal)
CPT/HCPCS: 36415; 80053; 85025; 85652; 86140

== ENCOUNTER → 2022-09-08 | Outpatient (CLI) | payer OTHER, MEDICAID, SELFPAY ==
--- NOTE | 2022-09-08 14:34 | RAD_ITS ---
STUDY: X-RAY - LEFT KNEE REASON FOR EXAM: Female, 46 years old. Pain TECHNIQUE: 4 view(s) of the knee. COMPARISON: None. FINDINGS: There is mild demineralization of the visualized distal femur. There is mild demineralization of the tibia and fibula. Normal proximal tibiofibular articulation. Normal medial femorotibial compartment. Normal lateral femorotibial compartment. There is minimal degenerative arthrosis of the patellofemoral articulation. The soft tissue structures are unremarkable. RAD/Knee 4 or More Views IMPRESSION: Mild bony osteopenia. Minimal degenerative change patellofemoral compartment. No visualized acute fracture. No visualized joint effusion. Electronically Signed: Janneth Sevilla MD at 15:02 EST Reading Location ID and State: Count includes the [facility] / [place] Tel , Service support ,
== END | disposition home or self-care (01) ==
PROVIDERS: Referring Provider Orthopaedic Surgery Sports Medicine; Visit Provider Orthopaedic Surgery Sports Medicine
DX: M17.12 Unilateral primary osteoarthritis, left knee (principal); M85.862 Other specified disorders of bone density and structure, left lower leg
CPT/HCPCS: 73564

== ENCOUNTER → 2022-09-30 | Outpatient (CLI) | payer OTHER, MEDICAID, SELFPAY ==
--- NOTE | 2022-09-30 13:42 | RAD_ITS ---
STUDY: X-RAY CHEST REASON FOR EXAM: Female, 46 years old. CHEST PAIN COUGH TECHNIQUE: XR Chest 2 Views COMPARISON: 01/17/2021 FINDINGS: There is no demonstrated pleural abnormality. Normal size heart. Normal mediastinum and kaylah. Normal visualized pulmonary arteries. Normal visualized aortic arch and descending thoracic aorta. Normal visualized thoracic spine. Normal visualized ribs, clavicles, and shoulders. There is no demonstrated abnormality of the visualized soft tissue structures of the upper abdomen. RAD/Chest PA and Lateral IMPRESSION: There are no acute findings. Electronically Signed: Matt Navas MD at 16:52 EST ,
== END | disposition home or self-care (01) ==
LOC: RAD 13:37
DX: R05.9 Cough, unspecified (principal)
CPT/HCPCS: 71046

== ENCOUNTER → 2022-10-03 | Outpatient (CLI) | payer OTHER, MEDICAID, SELFPAY | END | disposition home or self-care (01) | LOC: LABSPEC 15:12 | DX: J02.9 Acute pharyngitis, unspecified (principal) | CPT/HCPCS: 87070 ==

== ENCOUNTER → 2022-10-06 | Outpatient (CLI) | payer OTHER, MEDICAID, SELFPAY ==
[2022-10-06 14:36] LABS: Hematocrit 38.2 % (37-47); Hemoglobin 11.7 g/dL (12.0-15.0); Mean Corp Hgb Conc 30.6 g/dL (32-36); Mean Corpuscular Hgb 28.7 pg (27.0-32.0); Mean Corpuscular Volume 93.9 fL (81-99); Platelet Count 191 K/mm3 (150-450); RBC Distribution Width CV 12.6 % (11.6-14.6); RBC Distribution Width SD 43.5 fl (35.1-43.9); Red Blood Count 4.07 M/mm3 (4.2-5.4); White Blood Count 4.6 K/mm3 (4.4-11.0)
== END | disposition home or self-care (01) ==
LOC: LAB 14:17
PROVIDERS: Referring Provider Internal Medicine Cardiovascular Disease; Visit Provider Internal Medicine Cardiovascular Disease
DX: Z86.73 Personal history of transient ischemic attack (TIA), and cerebral infarction without residual deficits (principal); R23.3 Spontaneous ecchymoses; Q21.10 Atrial septal defect, unspecified
CPT/HCPCS: 36415; 85027

== ENCOUNTER → 2022-10-17 | Outpatient (CLI) | payer OTHER, MEDICAID, SELFPAY ==
[2022-10-17 08:18] LABS: Hemoglobin 12.2 g/dL (12.0-15.0)
--- NOTE | 2022-10-17 17:25 | RAD_ITS ---
INDICATION: Chronic back pain EXAMINATION/TECHNIQUE: X-RAY - XR Spine Cervical 2 or 3 Views COMPARISON: None. FINDINGS: VERTEBRAE: Preserved vertebral body height. No fracture. No spondylolisthesis. Preservation of the normal cervical lordosis. No significant facet arthropathy. DISCS: Disc spaces are maintained. NECK SOFT TISSUES: No prevertebral soft tissue widening. LUNG APICES: Clear. RAD/Cerv Spine 2 or 3 Views IMPRESSION: No evidence of acute fracture or spondylolisthesis. Electronically Signed: Valerio Campoverde MD at 18:35 EST ,
--- NOTE | 2022-10-17 17:25 | RAD_ITS ---
INDICATION: Chronic low back pain EXAMINATION/TECHNIQUE: X-RAY - XR Spine Lumbar 2 or 3 Views COMPARISON: None. FINDINGS: VERTEBRAE: Preserved vertebral body height. No fracture. No spondylolisthesis. Slight thoracolumbar levoscoliosis. Preservation of the normal lumbar lordosis. No significant facet arthropathy. DISCS: Disc spaces are maintained. INCLUDED ABDOMEN: Included bowel gas pattern is non-obstructive. RAD/Lumbar Spine 2 or 3 Views IMPRESSION: Slight thoracolumbar levoscoliosis. Otherwise normal appearance of the lumbar spine. Electronically Signed: Valerio Campoverde MD at 18:43 EST ,
== END | disposition home or self-care (01) ==
PROVIDERS: Referring Provider Internal Medicine Gastroenterology; Visit Provider Internal Medicine Gastroenterology
DX: G89.29 Other chronic pain (principal); K29.70 Gastritis, unspecified, without bleeding
CPT/HCPCS: 36415; 72040; 72100; 82274; 85018

== ENCOUNTER → 2022-10-28 | Outpatient (CLI) | payer OTHER, MEDICAID, SELFPAY ==
[2022-10-28 13:04] LABS: Vitamin B12 370 pg/mL (211-911)
[2022-10-28 13:14] LABS: Iron 48 ug/dL (50-170); Iron Binding Capacity,Total 301 ug/dL (250-450); PERCENT IRON SATURATION 15.9 % (15.0-55.0); Uric Acid 2.3 mg/dL (2.6-6.0)
== END | disposition home or self-care (01) ==
PROVIDERS: Visit Provider Internal Medicine Gastroenterology
DX: R19.7 Diarrhea, unspecified (principal); K29.70 Gastritis, unspecified, without bleeding
CPT/HCPCS: 36415; 82607; 82746; 83540; 83550; 84550

== ENCOUNTER → 2022-11-25 | Outpatient (CLI) | payer OTHER, MEDICAID, SELFPAY | END | disposition home or self-care (01) | PROVIDERS: Referring Provider Internal Medicine Gastroenterology; Visit Provider Internal Medicine Gastroenterology | DX: R19.7 Diarrhea, unspecified (principal) | CPT/HCPCS: 36415 ==

== ENCOUNTER → 2022-12-03 | Outpatient (CLI) | payer OTHER, MEDICAID, SELFPAY ==
--- NOTE | 2022-12-03 16:03 | BI_ITS ---
MAMMOGRAPHY - BILATERAL SCREENING REASON FOR EXAM: Female, 47 years old. Routine annual screening examination. PERTINENT HISTORY: Grandmother with breast cancer. TECHNIQUE: Digital bilateral breast destiny (3D mammographic acquisition) in the CC and MLO projections. 2-D mediolateral oblique (MLO) and craniocaudad (CC) views of both breasts were obtained. CAD: Full Field Digital Mammography with Computer Added Detection was performed. COMPARISON: Comparison is made with prior study of December 03, 2021 and November 30, 2020. FINDINGS: Breast Composition: The breasts are extremely dense, which lowers the sensitivity of mammography. There are no dominant masses or suspicious calcifications. No other significant abnormalities are identified. There has been no significant change since the prior study. BI/SCRN MAMM (CAD)W/DESTINY BILAT IMPRESSION: Stable bilateral screening mammogram. Yearly follow-up mammogram recommended. (A) ASSESSMENT CATEGORY: BIRADS Category 1: Negative. A letter regarding these results will be sent to the patient by the facility within 30 days. Approximately 10% of breast cancers are not detected by mammography. A normal mammogram should not delay biopsy of a clinically suspicious abnormality. [id number] Electronically Signed: Todd Espinosa MD at 16:53 EST ,
== END | disposition home or self-care (01) ==
LOC: OPBI 16:01
PROVIDERS: Visit Provider Student in an Organized Health Care Education/Training Program
DX: Z12.31 Encounter for screening mammogram for malignant neoplasm of breast (principal)
CPT/HCPCS: 77063; 77067

== ENCOUNTER → 2022-12-15 | Outpatient (CLI) | payer OTHER, MEDICAID, SELFPAY ==
[2022-12-15 07:01] LABS: Absolute Neutrophil Count 1.5 X10^3/uL (2.0-7.7); Basophil# 0.05 X10^3/uL; Basophil% 1.3 % (0-1); Eosinophil# 0.21 X10^3/uL; Eosinophils% 5.3 % (0-5); Hematocrit 36.8 % (37-47); Hemoglobin 11.4 g/dL (12.0-15.0); Lymphocyte % 45.7 % (19-41); Mean Corpuscular Hgb 28.9 pg (27.0-32.0); Mean Corpuscular Volume 93.4 fL (81-99); Mean Platelet Vol. 12.2 fl (6.2-12.0); Monocyte# 0.34 X10^3/uL; Monocyte% 8.6 % (0-10); NRBC Flagged by Analyzer 0 % (0-5); Neutrophil # 1.53 X10^3/uL (2.7-7.7); Neutrophil % 38.8 % (47-70); Platelet Count 184 K/mm3 (150-450); RBC Distribution Width CV 13.1 % (11.6-14.6); RBC Distribution Width SD 44.8 fl (35.1-43.9); Red Blood Count 3.94 M/mm3 (4.2-5.4); White Blood Count 3.9 K/mm3 (4.4-11.0)
[2022-12-15 07:07] LABS: Erythrocyte Sedimentation Rate 8 mm/hr (0-30)
[2022-12-15 07:25] LABS: ALB/GLOB Ratio 1.1 RATIO (0.9-2.4); AST(SGOT) 19 U/L (15-37); Alanine Aminotransfer ALT/SGPT 20 U/L (13-56); Albumin, Serum 3.6 g/dL (3.2-5.0); Alkaline Phosphatase 54 U/L (45-117); Anion Gap 5 (5-15); BUN 20 mg/dL (7-18); BUN/Creat Ratio 29.3 RATIO (10-20); CRP < 2.90 mg/L (0.0-3.0); Calcium,Total 8.7 mg/dL (8.5-10.1); Chloride 109 mmol/L (98-107); Creatinine, Serum 0.68 mg/dL (0.55-1.02); EST Glomerular Filtration Rate 98 mL/min (>60); Est Glom Filt Rate - Afr Amer 119 mL/min (>60); Globulin 3.2 g/dL (2.2-4.2); Glucose 92 mg/dL (74-106); Protein, Total 6.8 g/dL (6.4-8.2); Sodium Level 141 mmol/L (136-145)
== END | disposition home or self-care (01) ==
LOC: LAB 06:53
PROVIDERS: Visit Provider Registered Nurse
DX: M05.79 Rheumatoid arthritis with rheumatoid factor of multiple sites without organ or systems involvement (principal)
CPT/HCPCS: 36415; 80053; 85025; 85652; 86140

== ENCOUNTER → 2022-12-19 | Outpatient (CLI) | payer OTHER, MEDICAID, SELFPAY ==
[2022-12-19 15:02] LABS: Absolute Lymphocyte Count 1.49 X10^3/uL (0.83-4.51); Absolute Neutrophil Count 2.3 X10^3/uL (2.0-7.7); Basophil# 0.05 X10^3/uL; Basophil% 1.2 % (0-1); Eosinophil# 0.16 X10^3/uL; Eosinophils% 3.8 % (0-5); Hematocrit 35.8 % (37-47); Hemoglobin 11.4 g/dL (12.0-15.0); Lymphocyte # 1.49 X10^3/ul (0.83-4.51); Mean Corp Hgb Conc 31.8 g/dL (32-36); Mean Corpuscular Hgb 29.3 pg (27.0-32.0); Mean Platelet Vol. 12.6 fl (6.2-12.0); NRBC Flagged by Analyzer 0 % (0-5); Neutrophil # 2.26 X10^3/uL (2.7-7.7); Platelet Count 177 K/mm3 (150-450); RBC Distribution Width CV 13.2 % (11.6-14.6); RBC Distribution Width SD 44.5 fl (35.1-43.9); Red Blood Count 3.89 M/mm3 (4.2-5.4); White Blood Count 4.3 K/mm3 (4.4-11.0)
[2022-12-19 16:05] LABS: ALB/GLOB Ratio 1.2 RATIO (0.9-2.4); AST(SGOT) 19 U/L (15-37); Alanine Aminotransfer ALT/SGPT 20 U/L (13-56); Albumin, Serum 3.7 g/dL (3.2-5.0); Alkaline Phosphatase 60 U/L (45-117); Anion Gap 6 (5-15); BUN 16 mg/dL (7-18); BUN/Creat Ratio 17.5 RATIO (10-20); Chloride 105 mmol/L (98-107); Creatinine, Serum 0.91 mg/dL (0.55-1.02); EST Glomerular Filtration Rate 71 mL/min (>60); Est Glom Filt Rate - Afr Amer 85 mL/min (>60); Globulin 3.2 g/dL (2.2-4.2); Glucose 93 mg/dL (74-106); Potassium 3.6 mmol/L (3.5-5.1); Protein, Total 6.9 g/dL (6.4-8.2); Sodium Level 139 mmol/L (136-145); T4 Free Direct 1.05 ng/dL (0.76-1.46); Thyroid Stim Hormone (TSH) 1.36 uIU/mL (0.358-3.74)
[2022-12-19 17:38] LABS: HIV - WCH Non-Reactive (Nonreactive)
== END | disposition home or self-care (01) ==
LOC: WOBLAB 14:22
PROVIDERS: Visit Provider Student in an Organized Health Care Education/Training Program
DX: Z01.419 Encounter for gynecological examination (general) (routine) without abnormal findings (principal); Z11.3 Encounter for screening for infections with a predominantly sexual mode of transmission
CPT/HCPCS: 36415; 80053; 84439; 84443; 85025; 86703

== ENCOUNTER → 2022-12-23 | Outpatient (CLI) | payer OTHER, MEDICAID, SELFPAY ==
[2022-12-30 11:17] LABS: HPV APTIMA, High Risk Negative (Negative)
== END | disposition home or self-care (01) ==
LOC: WOBLAB 16:53
PROVIDERS: Visit Provider Nurse Practitioner Women's Health
DX: Z12.4 Encounter for screening for malignant neoplasm of cervix (principal)
CPT/HCPCS: 87624; 88175; G0145

== ENCOUNTER → 2023-01-17 | Outpatient (CLI) | payer OTHER, MEDICAID, SELFPAY ==
[2023-01-17 11:24] LABS: ALB/GLOB Ratio 1.1 RATIO (0.9-2.4); AST(SGOT) 22 U/L (15-37); Alanine Aminotransfer ALT/SGPT 31 U/L (13-56); Albumin, Serum 3.7 g/dL (3.2-5.0); Alkaline Phosphatase 60 U/L (45-117); Anion Gap 1 (5-15); BUN 14 mg/dL (7-18); BUN/Creat Ratio 23.2 RATIO (10-20); Chloride 110 mmol/L (98-107); Cholesterol 192 mg/dL (200); EST Glomerular Filtration Rate 114 mL/min (>60); Est Glom Filt Rate - Afr Amer 138 mL/min (>60); Globulin 3.3 g/dL (2.2-4.2); Glucose 95 mg/dL (74-106); High Density Lipoprotein 90 mg/dL; Sodium Level 139 mmol/L (136-145); Triglycerides 81 mg/dL; Very Low Density Lipoprotein 16 mg/dL (5-40)
[2023-01-19 08:24] LABS: Vitamin D,25 Hydroxy 54.4 ng/mL
== END | disposition home or self-care (01) ==
LOC: LAB 10:38
PROVIDERS: Referring Provider Family Medicine; Visit Provider Family Medicine
DX: E78.5 Hyperlipidemia, unspecified (principal); E55.9 Vitamin D deficiency, unspecified
CPT/HCPCS: 36415; 80053; 80061; 82306

== ENCOUNTER → 2023-02-06 | Outpatient (CLI) | payer OTHER, MEDICAID, SELFPAY ==
[2023-02-06 17:32] LABS: Calcium,Total 9.5 mg/dL (8.5-10.1)
== END | disposition home or self-care (01) ==
PROVIDERS: PCP Physician Assistant; Referring Provider Physician Assistant; Visit Provider Physician Assistant
DX: E55.9 Vitamin D deficiency, unspecified (principal); Z84.89 Family history of other specified conditions
CPT/HCPCS: 36415; 82310; 83970

== ENCOUNTER → 2023-03-16 | Outpatient (CLI) | payer OTHER, MEDICAID, SELFPAY ==
[2023-03-16 07:06] LABS: Absolute Lymphocyte Count 1.84 X10^3/uL (0.83-4.51); Absolute Neutrophil Count 1.7 X10^3/uL (2.0-7.7); Basophil# 0.03 X10^3/uL; Basophil% 0.7 % (0-1); Eosinophil# 0.25 X10^3/uL; Hematocrit 38.3 % (37-47); Hemoglobin 11.7 g/dL (12.0-15.0); Lymphocyte # 1.84 X10^3/ul (0.83-4.51); Lymphocyte % 44.3 % (19-41); Mean Corp Hgb Conc 30.5 g/dL (32-36); Mean Corpuscular Hgb 28.8 pg (27.0-32.0); Mean Corpuscular Volume 94.3 fL (81-99); Mean Platelet Vol. 11.6 fl (6.2-12.0); Monocyte# 0.32 X10^3/uL; Monocyte% 7.7 % (0-10); NRBC Flagged by Analyzer 0 % (0-5); Neutrophil % 41.1 % (47-70); Platelet Count 206 K/mm3 (150-450); RBC Distribution Width CV 13.2 % (11.6-14.6); RBC Distribution Width SD 45.3 fl (35.1-43.9); Red Blood Count 4.06 M/mm3 (4.2-5.4); White Blood Count 4.2 K/mm3 (4.4-11.0)
[2023-03-16 07:11] LABS: Erythrocyte Sedimentation Rate 4 mm/hr (0-30)
[2023-03-16 07:25] LABS: AST(SGOT) 17 U/L (15-37); Alanine Aminotransfer ALT/SGPT 25 U/L (13-56); Albumin, Serum 3.4 g/dL (3.2-5.0); Alkaline Phosphatase 60 U/L (45-117); Anion Gap 5 (5-15); BUN 18 mg/dL (7-18); BUN/Creat Ratio 23.2 RATIO (10-20); CRP < 2.90 mg/L (0.0-3.0); Chloride 108 mmol/L (98-107); Creatinine, Serum 0.78 mg/dL (0.55-1.02); EST Glomerular Filtration Rate 85 mL/min (>60); Est Glom Filt Rate - Afr Amer 103 mL/min (>60); Globulin 3.5 g/dL (2.2-4.2); Glucose 89 mg/dL (74-106); Potassium 4.3 mmol/L (3.5-5.1); Protein, Total 6.9 g/dL (6.4-8.2); Sodium Level 141 mmol/L (136-145)
== END | disposition home or self-care (01) ==
LOC: LAB 06:56
PROVIDERS: PCP Physician Assistant; Visit Provider Registered Nurse
DX: M05.79 Rheumatoid arthritis with rheumatoid factor of multiple sites without organ or systems involvement (principal)
CPT/HCPCS: 36415; 80053; 85025; 85652; 86140

== ENCOUNTER → 2023-03-30 | Outpatient (CLI) | payer OTHER, MEDICAID, SELFPAY ==
[2023-03-30 09:14] LABS: NATERA MAILED SPECIMEN
== END | disposition home or self-care (01) ==
PROVIDERS: PCP Physician Assistant; Referring Provider Obstetrics & Gynecology; Visit Provider Obstetrics & Gynecology
DX: Z13.79 Encounter for other screening for genetic and chromosomal anomalies (principal); Z80.3 Family history of malignant neoplasm of breast
CPT/HCPCS: 36415

== ENCOUNTER → 2023-04-01 | Outpatient (CLI) | payer OTHER, MEDICAID, SELFPAY ==
[2023-04-01 13:40] LABS: Progesterone Level 0.31 ng/mL (See Comment); Vitamin B12 324 pg/mL (211-911); Vitamin D,25 Hydroxy 38.8 ng/mL
[2023-04-01 13:54] LABS: Cholesterol 207 mg/dL (200); Estradiol 33.3 pg/mL; Free T3 2.5 pg/mL (2.18-3.98); High Density Lipoprotein 98 mg/dL; T4 Free Direct 0.95 ng/dL (0.76-1.46); Thyroid Stim Hormone (TSH) 2.01 uIU/mL (0.358-3.74); Triglycerides 70 mg/dL; Very Low Density Lipoprotein 14 mg/dL (5-40)
[2023-04-02 04:07] LABS: DHEA Sulfate 60.1 ug/dL (41.2-243.7)
== END | disposition home or self-care (01) ==
LOC: LAB 12:15
PROVIDERS: PCP Physician Assistant; Referring Provider Specialist; Visit Provider Specialist
DX: N95.1 Menopausal and female climacteric states (principal); E55.9 Vitamin D deficiency, unspecified; E78.5 Hyperlipidemia, unspecified; R53.83 Other fatigue
CPT/HCPCS: 36415; 80061; 82306; 82607; 82627; 82670; 84144; 84403; 84439; 84443; 84481; 82626

== ENCOUNTER → 2023-04-28 | Outpatient (CLI) | payer OTHER, MEDICAID, SELFPAY ==
[2023-04-28 11:23] LABS: Absolute Lymphocyte Count 2.28 X10^3/uL (0.83-4.51); Absolute Neutrophil Count 2.2 X10^3/uL (2.0-7.7); Basophil# 0.06 X10^3/uL; Basophil% 1.1 % (0-1); Eosinophil# 0.33 X10^3/uL; Eosinophils% 6.2 % (0-5); Hematocrit 39.5 % (37-47); Hemoglobin 12.5 g/dL (12.0-15.0); Lymphocyte # 2.28 X10^3/ul (0.83-4.51); Lymphocyte % 42.6 % (19-41); Mean Corp Hgb Conc 31.6 g/dL (32-36); Mean Corpuscular Hgb 29.4 pg (27.0-32.0); Mean Corpuscular Volume 92.9 fL (81-99); Mean Platelet Vol. 11.5 fl (6.2-12.0); Monocyte# 0.47 X10^3/uL; Monocyte% 8.8 % (0-10); NRBC Flagged by Analyzer 0 % (0-5); Neutrophil % 41.1 % (47-70); Platelet Count 214 K/mm3 (150-450); RBC Distribution Width CV 12.7 % (11.6-14.6); RBC Distribution Width SD 43.3 fl (35.1-43.9); Red Blood Count 4.25 M/mm3 (4.2-5.4); White Blood Count 5.4 K/mm3 (4.4-11.0)
[2023-04-28 12:00] LABS: Ferritin 19 ng/mL (8-252); Iron 72 ug/dL (50-170); Iron Binding Capacity,Total 386 ug/dL (250-450); PERCENT IRON SATURATION 18.7 % (15.0-55.0)
[2023-04-28 12:01] LABS: Vitamin B12 347 pg/mL (211-911)
== END | disposition home or self-care (01) ==
LOC: POLAB3 10:01
PROVIDERS: PCP Physician Assistant; Visit Provider Internal Medicine Hematology & Oncology
DX: D64.9 Anemia, unspecified (principal)
CPT/HCPCS: 36415; 82607; 82728; 83540; 83550; 85025

== ENCOUNTER → 2023-05-07 | Outpatient (CLI) | payer OTHER, MEDICAID, SELFPAY ==
[2023-05-07 09:26] LABS: Absolute Lymphocyte Count 1.93 X10^3/uL (0.83-4.51); Absolute Neutrophil Count 2.2 X10^3/uL (2.0-7.7); Basophil# 0.04 X10^3/uL; Basophil% 0.8 % (0-1); Eosinophil# 0.34 X10^3/uL; Eosinophils% 6.8 % (0-5); Hematocrit 40.5 % (37-47); Hemoglobin 12.6 g/dL (12.0-15.0); Lymphocyte # 1.93 X10^3/ul (0.83-4.51); Lymphocyte % 38.6 % (19-41); Mean Corp Hgb Conc 31.1 g/dL (32-36); Mean Corpuscular Hgb 29.2 pg (27.0-32.0); Mean Corpuscular Volume 93.8 fL (81-99); Mean Platelet Vol. 11.5 fl (6.2-12.0); Monocyte# 0.49 X10^3/uL; Monocyte% 9.8 % (0-10); NRBC Flagged by Analyzer 0 % (0-5); Neutrophil # 2.19 X10^3/uL (2.7-7.7); Neutrophil % 43.8 % (47-70); Platelet Count 224 K/mm3 (150-450); RBC Distribution Width SD 44.7 fl (35.1-43.9); Red Blood Count 4.32 M/mm3 (4.2-5.4)
== END | disposition home or self-care (01) ==
LOC: POLAB3 09:13
PROVIDERS: PCP Physician Assistant; Visit Provider Physician Assistant
DX: D64.9 Anemia, unspecified (principal)
CPT/HCPCS: 36415; 85025

== ENCOUNTER → 2023-05-29 | Outpatient (CLI) | payer OTHER, MEDICAID, SELFPAY ==
[2023-05-29 09:08] LABS: Estradiol 25.5 pg/mL
[2023-05-29 09:11] LABS: Progesterone Level 10.07 ng/mL (See Comment); Vitamin D,25 Hydroxy 48.6 ng/mL
--- NOTE | 2023-05-29 15:10 | RAD_ITS ---
STUDY: X-RAY - LEFT KNEE REASON FOR EXAM: Female, 47 years old. Pain and stiffness TECHNIQUE: 4 view(s) of the knee. COMPARISON: None. FINDINGS: Normal visualized distal femur. Normal visualized proximal tibia and fibula. Normal proximal tibiofibular articulation. Normal medial femorotibial compartment. Normal lateral femorotibial compartment. Normal patellofemoral articulation. The soft tissue structures are unremarkable. RAD/Knee 4 or More Views IMPRESSION: Normal x-ray examination of the knee. Electronically Signed: Nate Montenegro MD at 15:33 EDT ,
== END | disposition home or self-care (01) ==
PROVIDERS: PCP Physician Assistant; Referring Provider Nurse Practitioner Women's Health; Visit Provider Nurse Practitioner Women's Health
DX: E28.8 Other ovarian dysfunction (principal); R53.81 Other malaise; M25.562 Pain in left knee
CPT/HCPCS: 36415; 73564; 82306; 82670; 84144; 84403

== ENCOUNTER → 2023-06-05 | Outpatient (CLI) | payer OTHER, MEDICAID, SELFPAY ==
[2023-06-05 15:37] LABS: HIV - WCH Non-Reactive (Nonreactive)
[2023-06-08 14:08] LABS: HCV Quant. RNA PCR HCV Not Detected IU/mL (.); HSV 2 IgG < 0.91 index (0.00-0.90)
[2023-06-08 22:06] LABS: Chlamydia By Nucleic Acid AMP Negative (Negative); Gonococcus By Nucleic Acid AMP Negative (Negative)
== END | disposition home or self-care (01) ==
PROVIDERS: PCP Physician Assistant; Referring Provider Obstetrics & Gynecology; Visit Provider Obstetrics & Gynecology
DX: Z20.2 Contact with and (suspected) exposure to infections with a predominantly sexual mode of transmission (principal)
CPT/HCPCS: 36415; 86695; 86696; 86703; 87491; 87522; 87591

== ENCOUNTER → 2023-06-08 | Outpatient (CLI) | payer OTHER, MEDICAID, SELFPAY ==
[2023-06-12 16:09] LABS: Anti-Parietal Cell AB, QN 1.6 Units (0.0-20.0); Intrinsic Factor Ab 0.9 AU/mL (0.0-1.1)
== END | disposition home or self-care (01) ==
PROVIDERS: PCP Physician Assistant; Visit Provider Internal Medicine Gastroenterology
DX: D64.9 Anemia, unspecified (principal)
CPT/HCPCS: 36415; 83516; 86340

== ENCOUNTER 2023-06-17 12:41 | Outpatient (CLI) | payer OTHER, MEDICAID, SELFPAY ==
--- OUTSIDE RECORDS SUMMARY | 2023-06-17 13:06 | XMS RPT_ITS | CCD ---
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 Name Role Phone MD Lisa, Isai Cristobal Unavailable Whit RICARDO, Zenaida Good Unavailable Unavailable Betzy RICARDO, Joyce Rabago Unavailable KIDD PA-C, GINO Angelica Primary Care Physician Kidd, Gino Primary Care Provider Kidd, Gino Primary Care Provider [phone] KIDD, GINO PA-C Primary Care Unavailable KIDD, GINO PA-C Attending Unavailable KIDD, GINO PA-C Admitting Unavailable KIDD, GINO PA-C Consulting Unavailable PROVIDER, UNKNOWN Consulting Unavailable ELO NINA Admitting Unavailable ELO NINA Primary Care Unavailable ELO NINA Attending Unavailable KIDD, GINO PA-C Consulting Unavailable PROVIDER, UNKNOWN Consulting Unavailable ELO RAMIREZ Attending Unavailable ELO RAMIREZ Primary Care Unavailable ELO RAMIREZ Admitting Unavailable KIDD, GINO PA-C Consulting Unavailable KALI VILLEGAS Referring Unavailable PROVIDER, UNKNOWN Consulting Unavailable KIDD, GINO PA-C Consulting Unavailable YUDI RIVERO Attending Unavailab le AMICONEYUDISWING TYPE LATHE OPERATOR Primary Care Unavailab le AMICONEYUDI Admitting Unavailab le PROVIDER, UNKNOWN Consulting Unavailable JASPER GOMEZ Attending Unavailable JASPER GOMEZ Primary Care Unavailable JASPER GOMEZ Admitting Unavailable KIDD, GINO PA-C Consulting Unavailable PROVIDER, UNKNOWN Consulting Unavailable KIDD, GINO PA-C Consulting Unavailable KALKA, MATTHEW Attending Unavailable KALKA, MATTHEW Primary Care Unavailable KALKA, MATTHEW Admitting Unavailable PROVIDER, UNKNOWN Consulting Unavailable KIDD, GINO PA-C Admitting Unavailable KIDD, GINO PA-C Attending Unavailable KIDD, GINO PA-C Consulting Unavailable DEJUAN CONKLIN Referring Unavailable KIDD, GINO PA-C Primary Care Unavailable PROVIDER, UNKNOWN Consulting Unavailable KIDD, GINO PA-C Admitting Unavailable KIDD, GINO PA-C Attending Unavailable KIDD, GINO PA-C Primary Care Unavailable KIDD, GINO PA-C Consulting Unavailable PROVIDER, UNKNOWN Consulting Unavailable KIDD, GINO PA-C Primary Care Unavailable KIDD, GINO PA-C Attending Unavailable KIDD, GNIO PA-C Admitting Unavailable KIDD, GINO PA-C Consulting Unavailable PROVIDER, UNKNOWN Consulting Unavailable ESHENAUR, MATHIEU PA-C Admitting Unavailab le KIDD, GINO PA-C Consulting Unavailable ESHENAUR, MATHIEU PA-C Attending Unavailab le ESHENAUR, MATHIEU PA-C Primary Care Unavailab le PROVIDER, UNKNOWN Consulting Unavailable KIDD, GINO PA-C Referring Unavailable KIDD, GINO PA-C Consulting Unavailable TOREY, DR SHENG Aguilar Attending Unavailable TOREY, DR SHENG Aguilar Primary Care Unavailable DR SHENG LEMA Admitting Unavailable PROVIDER, UNKNOWN Consulting Unavailable ALEXANDRA KILLIAN Admitting Unavailable ALEXANDRA KILLIAN Attending Unavailable ALEXANDRA KILLIAN Primary Care Unavailable WALDO LOPEZ MD Referring Unavailable KIDD, GINO PA-C Consulting Unavailable PROVIDER, UNKNOWN Consulting Unavailable KIDD, GINO PA-C Admitting Unavailable KIDD, GINO PA-C Attending Unavailable KIDD, GINO PA-C Primary Care Unavailable KIDD, GINO PA-C Consulting Unavailable PROVIDER, UNKNOWN Consulting Unavailable BENJY, DR EVELINE Naranjo Primary Care Unavaila ble BENJY, DR EVELINE Naranjo Admitting Unavaila ble KIDD, GINO PA-C Consulting Unavailable BENJY, DR EVELINE Naranjo Attending Unavaila ble PROVIDER, UNKNOWN Consulting Unavailable KIDD, GINO PA-C Consulting Unavailable BENJY, DR EVELINE Naranjo Attending Unavaila ble BENJY, DR EVELINE Naranjo Primary Care Unavaila ble BENJY, DR EVELINE Naranjo Admitting Unavaila ble PROVIDER, UNKNOWN Consulting Unavailable KIDD, GINO PA-C Admitting Unavailable KIDD, GINO PA-C Attending Unavailable KIDD, GINO PA-C Primary Care Unavailable KIDD, GINO PA-C Consulting Unavailable PROVIDER, UNKNOWN Consulting Unavailable BENJY, DR EVELINE Naranjo Attending Unavaila ble BENJY, DR EVELINE Naranjo Primary Care Unavaila ble BENJY, DR EVELINE Naranjo Admitting Unavaila ble KIDD, GINO PA-C Consulting Unavailable PROVIDER, UNKNOWN Consulting Unavailable BENJY, DR EVELINE Naranjo Attending Unavaila ble BENJY, DR EVELINE Naranjo Primary Care Unavaila ble BENJY, DR EVELINE Naranjo Admitting Unavaila ble KIDD, GINO PA-C Consulting Unavailable PROVIDER, UNKNOWN Consulting Unavailable BENJY, DR EVELINE Naranjo Attending Unavaila ble BENJY, DR EVELINE Naranjo Primary Care Unavaila ble BENJY, DR EVELINE Naranjo Admitting Unavaila ble KIDD, GINO PA-C Consulting Unavailable PROVIDER, UNKNOWN Consulting Unavailable BENJY, DR EVELINE Naranjo Attending Unavaila ble BENJY, DR EVELINE Naranjo Primary Care Unavaila ble BENJY, DR EVELINE Naranjo Admitting Unavaila ble KIDD, GINO PA-C Consulting Unavailable PROVIDER, UNKNOWN Consulting Unavailable BENJY, DR EVELINE Naranjo Primary Care Unavaila ble BENJY, DR EVELINE Naranjo Admitting Unavaila ble KIDD, GINO PA-C Consulting Unavailable BENJY, DR EVELINE Naranjo Attending Unavaila ble PROVIDER, UNKNOWN Consulting Unavailable Allergies Allergy Classification Reported Allergen(s) Allergy Type Date of Onset Reaction(s) Facility (6 sources) bacitracin / neomycin / polymyxin b; Translations: [bacitracin / neomycin / polymyxin B] Drug Allergy 7 Eruption of skin (disorder) [facility] Work Phone: [phone] (5 sources) metroNIDAZOLE; Translations: [Metronidazole] Drug Allergy 7 Vomiting (disorder) [facility] Work Phone: [phone] (8 sources) morphine; Translations: [Morphine] Drug Allergy 5 Headache (finding), Vomiting (disorder), Other: See Comments [facility] Work Phone: [phone] (4 sources) Sucralfate; Translations: [sucralfate] Drug Allergy 1 Nausea (finding), GI Upset [facility] (2 sources) bacitracin / neomycin / polymyxin b Drug Allergy 5 Rash [facility] Work Phone: (2 sources) metroNIDAZOLE Drug Allergy 0 GI Upset [facility] (1 source) 12/08/17 (+) CDIFF; Translations: [12/08/17 (+) CDIFF] Propensity to adverse reactions (disorder) [facility] (1 source) 10/19/2019 (+) CDIFF AG; Translations: [10/19/2019 (+) CDIFF AG] Propensity to adverse reactions (disorder) [facility] (1 source) 11/03/2019 (-) CDIFF; Translations: [11/03/2019 (-) CDIFF] Propensity to adverse reactions (disorder) [facility] (1 source) 08/10/2020 (+) CDIFF AG; Translations: [08/10/2020 (+) CDIFF AG] Propensity to adverse reactions (disorder) [facility] (1 source) 01/24/21 (+) CDIFF AG; Translations: [01/24/21 (+) CDIFF AG] Propensity to adverse reactions (disorder) [facility] Medications Current Medications Medication Drug Class(es) Dates Sig (Normalized) Sig (Original) 0.4 ML cyclosporine 0.5 MG/ML Ophthalmic Suspension [Restasis] (1 source) Start: 07-31-2021 Restasis 0.05% ophthalmic emulsion See Instructions, 0 Refill(s) Start Date: 07/31/21 Status: Ordered acyclovir 400 mg oral tablet (14 sources) Herpesvirus Nucleoside Analog DNA Polymerase Inhibitor, Herpes Simplex Virus Nucleoside Analog DNA Polymerase Inhibitor, Herpes Zoster Virus Nucleoside Analog DNA Polymerase Inhibitor Start: 08-24-2017 End: 08-26-2017 ACYCLOVIR 5 % OINT apply topically as directed ACYCLOVIR [id number] Zenaida Sherman RN Completed/Discontinued Medications Medication Drug Class(es) Dates Sig (Normalized) Sig (Original) carboxymethylcellulose sodium 5 mg/ml ophthalmic solution (2 sources) Start: 12-03-2020 take 1 drop(s) into the eye(s) three times daily REFRESH TEARS 0.5 % drop INSTILL 1 DROP INTO BOTH EYES 3 TIMES A DAY 0 12/03/2020 Active Problems Active Problems Problem Classification Problem Date Documented Da te Episodic/Chronic Abdominal pain (8 sources) Epigastric pain; Translations: [Epigastric pain] Onset: 0 Episodic Anxiety disorders (2 sources) Anxiety 07-31-2021 Chronic Cardiac and circulatory congenital anomalies (2 sources) Patent foramen ovale; Translations: [Atrial septal defect] Onset: 7 08-26-2017 Chronic Coronary atherosclerosis and other heart disease (4 sources) Angina pectoris; Translations: [Chest pain, unspecified] Onset: 7 08-18-2017 Chronic Esophageal disorders (2 sources) Gastroesophageal reflux disease 08-15-2021 Chronic Headache; including migraine (2 sources) Migraine 07-31-2021 Chronic Joint disorders and dislocations; trauma-related (3 sources) Unspecified dislocation of left patella, initial encounter; Translations: [Unspecified dislocation of left patella, initial encounter] Onset: 2 Episodic Noninfectious gastroenteritis (4 sources) Colitis; Translations: [Noninfective gastroenteritis and colitis, unspecified] 07-31-2021 Episodic Other and unspecified benign neoplasm (2 sources) Polyp of colon; Translations: [Polyp of colon] 11-03-2014 Episodic Other gastrointestinal disorders (2 sources) Irritable bowel syndrome 07-31-2021 Chronic Other nervous system disorders (2 sources) Plantar nerve lesion; 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, unspecified lower limb] Onset: 0 05-15-2010 Chronic Transient cerebral ischemia (2 sources) 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 Unclassified (2 sources) Hormone therapy 07-31-2021 Unclassified (2 sources) Rheumatic arthritis 07-31-2021 Unclassified (2 sources) CONTACT WITH AND SUSPECTED EXPOSURE TO COVID-19; Translations: [CONTACT WITH AND SUSPECTED EXPOSURE TO COVID-19] Onset: 2 Unclassified (2 sources) Cough, unspecified; Translations: [Cough, unspecified] Onset: 1 Viral infection (2 sources) Herpes labialis 07-31-2021 Episodic Past or Other Problems Problem Classification Problem Date Documented Da te Episodic/Chronic Blindness and vision defects (5 sources) Blurring of visual image; Translations: [Myopia] Onset: 10-18-2016 08-24-2017 Episodic Hemorrhoids (2 sources) Internal hemorrhoids; Translations: [Other hemorrhoids] Onset: 02-19-2010 02-19-2010 Episodic Other and unspecified benign neoplasm (2 sources) Benign neoplasm of colon; Translations: [Benign neoplasm of colon, unspecified] Onset: 11-29-2014 Episodic Other circulatory disease (1 source) Other specified symptoms and signs involving the circulatory and respiratory systems; Translations: [Other specified symptoms and signs involving the circulatory and respiratory systems] Onset: 07-25-2021 Episodic Other eye disorders (2 sources) Scar of cornea of left eye; Translations: [Unspecified corneal scar and opacity] Onset: 10-18-2016 10-18-2016 Episodic Other gastrointestinal disorders (2 sources) Diarrhea; Translations: [Diarrhea, unspecified] Onset: 01-24-2011 01-24-2011 Episodic Other inflammatory condition of skin (2 sources) Seborrheic dermatitis; Translations: [Seborrheic dermatitis, unspecified] Onset: 06-15-2010 06-15-2010 Episodic Other nervous system disorders (3 sources) Paresthesia of upper limb; Translations: [Paresthesia of skin] Onset: 08-24-2017 08-24-2017 Episodic Other skin disorders (2 sources) Acne; Translations: [Other acne] Onset: 06-15-2010 06-15-2010 Episodic Other skin disorders (2 sources) Primary focal hyperhidrosis; 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, unspecified] Onset: 06-15-2010 06-15-2010 Episodic Other upper respiratory disease (1 source) Sneezing; Translations: [Sneezing] Onset: 07-25-2021 Episodic Unclassified (2 sources) Echocardiogram abnormal; Translations: [Abnormal findings on diagnostic imaging of heart and coronary circulation] Onset: 08-26-2017 08-26-2017 Episodic Unclassified (1 source) CONTACT WITH AND SUSPECTED EXPOSURE TO COVID-19; Translations: [CONTACT WITH AND SUSPECTED EXPOSURE TO COVID-19] Onset: 10-03-2021 Unclassified (1 source) Cough, unspecified; Translations: [Cough, unspecified] Onset: 07-25-2021 Results Test Name Value Interpretation Reference Range Facil ity Vital Signs Date Time Vital Sign Value Performing Clinician Faci lity 08-26-2017 09:19-0500 BMI (Body Mass Index) 22.92 kg/m2 MD [facility] Work Phone: 08-26-2017 09:19-0500 BP Diastolic 60 mm[Hg] MD [facility] Work Phone: 08-26-2017 09:19-0500 BP Systolic 92 mm[Hg] MD [facility] Work Phone: 08-26-2017 09:19-0500 Height 167.64 cm MD [facility] Work Phone: 08-26-2017 09:19-0500 Pulse (Heart Rate) 64 /min MD [facility] Work Phone: 08-26-2017 09:19-0500 Respiratory Rate 16 /min MD [facility] Work Phone: 08-26-2017 09:19-0500 Weight 64.41 kg MD [facility] Work Phone: Encounters Encounter Date Encounter Type Care Provider Facility Start: 05-10-2022 End: 05-10-2022 ambulatory GINO KIDD [facility] Start: 05-09-2022 Refill Alexandra Killian MD Work Phone: [facility] [place] Procedures Date Procedure Procedure Detail Performing Clinician Start: 01-29-2021 Adult depression scr eening assessment Alexandra Killian MD Work Phone: Start: 11-24-2019 Colonoscopy Alexandra valladares MD Work Phone: Start: 08-18-2017 End: 08-24-2017 Cardiovascular stress test using treadmill Isai Gonzalez MD Start: 11-05-2016 Mammography Alexandra valladares MD Work Phone: Start: 09-28-[address] JASPER GOMEZ MD Cholecystectomy DR JASPER GOMEZ MD Dilation and curetta ge of uterus DR JASPER GOMEZ MD Plan of Treatment Date Care Activity Detail Author Start: 03-03-2025 DIABETES SCREEN DIABETES SCREEN [facility] Start: 11-24-2024 Colonoscopy COLONOSCOPY [facility] Start: 11-24-2024 COLORECTAL CANCER SCREENING COLORECTAL CANCER SCREENING [facility] Start: 05-29-2022 Influenza vaccination INFLUENZA (#1) [facility] Start: 01-29-2022 Adult depression screening assessment DEPRESSION SCREENING [facility] Start: 2021 COLOGUARD (FIT-DNA) COLOGUARD (FIT-DNA) [facility] Start: [address] COLONOGRAPHY [facility] Start: 2021 DIABETES SCREEN DIABETES SCREEN [facility] Start: 2021 FECAL OCCULT BLOOD FECAL OCCULT BLOOD [facility] Start: 2021 LIPID SCREEN LIPID SCREEN [facility] Start: 2021 SIGMOIDOSCOPY SIGMOIDOSCOPY [facility] Start: 05-29-2021 Influenza vaccination INFLUENZA (#1) [facility] Start: 11-05-2017 Mammography MAMMOGRAM [facility] Start: 08-26-2017 End: 08-26-2017 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 [facility] Work Phone: Start: 08-26-2017 End: 08-26-2017 Follow Up Appt Other Follow Up Appt Other [employer] Lalo wilson Work Phone: Start: 08-26-2017 End: 08-26-2017 Appointment Appointment [facility] Work Phone: Start: 08-18-2017 End: 08-24-2017 Cardiovascular stress test using treadmill Treadmill stress test (no imaging) [employer] Work Phone: Start: 1995 SHINGRIX VACCINE (1 of 2) SHINGRIX VACCINE (1 of 2) [facility] Start: 1995 Urine microalbumin profile DTAP,TDAP,TD (1 - Tdap) [facility] Start: 1994 HEPATITIS C SCREENING HEPATITIS C SCREENING [facility] Start: 1994 HIV SCREENING HIV SCREENING [facility] Start: 1988 COVID-19 VACCINE (1) COVID-19 VACCINE (1) [facility] Start: 1982 PNEUMOCOCCAL (1 - PCV) PNEUMOCOCCAL (1 - PCV) [facility] Start: 04-28-1977 COVID-19 VACCINE (#1) COVID-19 VACCINE (#1) [facility] Start: 1976 HEPATITIS B (1 of 3 - 3-dose series) HEPATITIS B (1 of 3 - 3-dose series) [facility] c Immunizations Immunization Date Immunization Notes Care Provider Fa cility 07-25-2016 influenza virus vacc ine, unspecified formulation Alexandra Killian MD Work Phone: [facility] Payers Date Payer Category Payer Unknown [facility] [employer] [facility] [employer] [id number] 09/28/2015-Present [address] [facility] [id number] [place] [address] Indemnity [id number] 05-29-2003 Medicaid [place] [employer] [place] [employer] [id number] 05/29/2003-Present [phone] [place] [id number] Medicaid [id number] 05-29-2003 Medicaid [place] [employer] [place] [id number] 05/29/2003-Present [phone] [address] [facility] [place] [address] Medicaid [id number] 1976 Unknown [id number] [id number] 1976 Unknown [id number] 2.16.840.1.452914.3.579.2.651 1976 Unknown [id number] 2.16.840.1.980310.3.579.2 1976 Unknown [id number] 2.16.840.1.183994.3.579.2 1976 Unknown [id number] 2.16.840.1.188681.3.579.2 1976 Unknown [id number] 2.16.840.1.959004.3.579.2 1976 Unknown [id number] 2.16.840.1.640688.3.579.2 1976 Unknown [id number] 2.16.840.1.608818.3.579. 1976 Unknown [id number] 2.16.840.1.348249.3.579. 1976 Unknown [id number] 2.16.840.1.641487.3.579. 1976 Unknown [id number] 2.16.840.1.744837.3.579. 1976 Unknown [id number] 2.16.840.1.972686.3.579.2 1976 Unknown [id number] 2.16.840.1.676333.3.579.2 1976 Unknown [id number] 2.16.840.1.195886.3.579.2 1976 Unknown [id number] 2.16.840.1.928709.3.579.2 1976 Unknown [id number] 2.16.840.1.288333.3.579.2 1976 Unknown [id number] 2.16.840.1.821560.3.579.2 1976 Unknown [id number] 2.16.840.1.652900.3.579.2 1976 Unknown [id number] 2.16.840.1.302594.3.579.2.651 1976 Unknown [id number] 2.16.840.1.867999.3.579.2.651 1976 Unknown [id number] 2.16.840.1.832415.3.579.2.65 Unknown [id number] Social History Date Type Detail Facility Start: 07-31-2021 Never smoked t obacco (finding) [facility] Sex Assigned At Female [facility] Start: 09-19-2021 Alcohol intake 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 Patient phones requesting refills as follows: Requested Prescriptions Pending Prescriptions Disp Refills famotidine (PEPCID) 40 mg tablet [Pharmacy Med Name: FAMOTIDINE 40 MG TABLET] 180 tablet 1 Sig: TAKE 1 TABLET BY MOUTH TWICE A DAY Please review and advise. Pam Navas Ma documented in this encounter [facility] 12-16-2021 Miscellaneous Notes Patient phones requesting refills as follows: Pending Prescriptions Disp Refills FAMOTIDINE 40 MG TABLET 180 tablet 1 Sig: TAKE 1 TABLET BY MOUTH TWICE A DAY VINCENT: Yes Please review and advise. Pam Navas Ma documented in this encounter [facility] 08-01-2021 Evaluation + Plan note Future Scheduled TestsXR Upper GI 08/01/21 [facility] 08-01-2021 Evaluation + Plan note Future Appointments Future Scheduled TestsXR Upper GI 08/01/21 [facility] 07-31-2021 Note HNO ID: [id number] Author: Cameron Zavala, CT Service: Nuclear Medicine Author Type: Clinical Director Of Critical Care Type: Progress Notes Filed: 07/31/2021 9:31 AM Note Text: RADIOLOGY SERVICE PROGRESS NOTE SERVICE DATE: 07/31/2021 SERVICE TIME: 9:08 AM PATIENT IDENTITY VERIFICATION COMPLETED USING TWO (2) STANDARD IDENTIFIERS: Name and Date of confirmed by patient verbally and Name and Date of confirmed by identification band FALL SCREENING: Has the patient had 2 falls in the last year or 1 fall with injury or currently using an Ambulatory Assistive Device (Walker, Cane, Wheelchair, Crutches, etc.)? No PATIENT GENDER DATA: .female : No ALLERGIES: Reviewed and unchanged MEDICATIONS REVIEWED: Not applicable PATIENT RELEVANT IMPLANT DATA REVIEWED: Not Applicable CREATININE: Creatinine Date Value Ref Range Status 06/13/2016 0.69 0.58 - 0.96 mg/dL Final eGFR-All Other Races Date Value Ref Range Status 06/13/2016 >60 . Final Comment: eGFR (Estimated GFR) Units of measure: mL/min/1.73 meters squared eGFR is derived from the reexpressed MDRD Study equation using the following parameters: serum creatinine, age, gender and race. The creatinine assay has been calibrated to be traceable to IDMS. An eGFR <60 mL/min/1.73m2 for >3 months is consistent with chronic kidney disease. Refer to KDOQI guidelines for clinical interpretation. In patients with unstable renal function, e.g. those with acute kidney injury, the eGFR may not accurately reflect actual GFR. eGFR- Date Value Ref Range Status 06/13/2016 >60 Final P.O.C.T. RESULTS: N/A July 31, [address] PERFORMED: No IV SITE: NM only - not applicable, oral or physician administered agents given to patient POST EXAM PIV STATUS: Not applicable PROCEDURE TYPE: NM GET: 1.1 mCi Tc99m SULFUR COLLOID was administered orally via 4 ounces of Egg Beaters,1 pieces of toast, .5 ounce of jelly with 6 ounces of water orally ADMINISTRATION TIME: 07:25 PATIENT DISCHARGED TO: Ambulatory patient, left [place] department area. A Diagnostic radioactive procedure has taken place, with no further precautions necessary other than routine body substance precautions. 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 Acne Vulgaris: Inflammatory Grade II 06/15/2010 06/15/2010 documented as of this encounter (statuses as of 05/09/2022) [facility] Diagnosis Epigastric abdominal pain Abdominal pain, epigastric documented in this encounter [facility] note* Diagnosis Epigastric abdominal pain Abdominal pain, epigastric documented in this encounter [facility] course Narrative No data available for this section [facility] Discharge instructions No data available for this section [facility] Progress note No data available for this section [facility] Summary Purpose Family History No Family History Records FoundNo Family History Records FoundNo Family History Records FoundNo Family History Records FoundNo Family History Records Found Advance Directives No Advanced Directives Records FoundDocuments on File Type Date Recorded 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 Advance Directive(s) 04/19/2021 10:05 AM Additional Source Comments INFORMATION SOURCE (unrecogn ized section and content) DATE CREATED AUTHOR AUTHOR'S ORGANIZ ATION 08/01/2021 [facility] DATE CREATED AUTHOR AUTHOR'S ORGANIZ ATION 05/26/2022 Luis Manuel Vasquez [facility] DATE CREATED AUTHOR AUTHOR'S ORGANIZ ATION 01/04/2023 [facility] DATE CREATED AUTHOR AUTHOR'S ORGANIZ ATION 03/19/2023 [facility] Source Comments (unrecognize d section and content) In the event this informatio n is protected by the Federal Confidentiality of Alcohol and Drug Abuse Patient Records regulations: The Federal rules restrict any use of the information to criminally investigate or prosecute any alcohol or drug abuse patient.[facility] the event this information is protected by the Federal Confidentiality of Alcohol and Drug Abuse Patient Records regulations: The Federal rules restrict any use of the information to criminally investigate or prosecute any alcohol or drug abuse patient.[facility] [facility] Reason for Visit (unrecogniz ed section and content) Care Teams (unrecognized sec tion and content) Manager [employer] Relationship Specialty Start Date End Date Gino Kidd [address] [place] [address] [place] [address] PCP - General Family Practice 04/19/21 FOR RECORDS PERTAINING TO PATIENTS WHO ARE OR HAVE BEEN ENROLLED IN A CHEMICAL DEPENDENCY/SUBSTANCEABUSE PROGRAM, SOME INFORMATION MAY BE OMITTED. This clinical summary was aggregated from multiple sources. Caution should be exercised in using it in the provision of clinical care. This summary normalizes information from multiple sources, and as a consequence, information in this document may materially change the coding, format and clinical context of patient data. In addition, data may be omitted in some cases. CLINICAL DECISIONS SHOULD BE BASED ON THE PRIMARY CLINICAL RECORDS. [facility]. provides no warranty or guarantee of the accuracy or completeness of information in this document.
== END 2023-06-17 23:59 | disposition home or self-care (01) ==
LOC: LABSPEC 12:43
PROVIDERS: PCP Physician Assistant; Visit Provider Otolaryngology Otolaryngology/Facial Plastic Surgery
DX: J02.9 Acute pharyngitis, unspecified (principal)
CPT/HCPCS: 87070

== ENCOUNTER → 2023-06-23 | Outpatient (CLI) | payer OTHER, MEDICAID, SELFPAY ==
[2023-06-23 10:22] LABS: Absolute Lymphocyte Count 1.31 X10^3/uL (0.83-4.51); Absolute Neutrophil Count 2.2 X10^3/uL (2.0-7.7); Basophil# 0.05 X10^3/uL; Basophil% 1.2 % (0-1); Eosinophil# 0.26 X10^3/uL; Eosinophils% 6.1 % (0-5); Hematocrit 38.1 % (37-47); Hemoglobin 11.7 g/dL (12.0-15.0); Lymphocyte # 1.31 X10^3/ul (0.83-4.51); Lymphocyte % 30.8 % (19-41); Mean Corp Hgb Conc 30.7 g/dL (32-36); Mean Corpuscular Hgb 28.6 pg (27.0-32.0); Mean Corpuscular Volume 93.2 fL (81-99); Mean Platelet Vol. 12.6 fl (6.2-12.0); Monocyte# 0.41 X10^3/uL; Monocyte% 9.6 % (0-10); NRBC Flagged by Analyzer 0 % (0-5); Neutrophil # 2.21 X10^3/uL (2.7-7.7); Neutrophil % 52.1 % (47-70); Platelet Count 205 K/mm3 (150-450); RBC Distribution Width CV 12.8 % (11.6-14.6); RBC Distribution Width SD 44.3 fl (35.1-43.9); Red Blood Count 4.09 M/mm3 (4.2-5.4); White Blood Count 4.3 K/mm3 (4.4-11.0)
[2023-06-23 10:36] LABS: Erythrocyte Sedimentation Rate 7 mm/hr (0-30)
[2023-06-23 10:56] LABS: AST(SGOT) 19 U/L (15-37); Alanine Aminotransfer ALT/SGPT 24 U/L (13-56); Albumin, Serum 3.3 g/dL (3.2-5.0); Alkaline Phosphatase 58 U/L (45-117); Anion Gap 2 (5-15); BUN 13 mg/dL (7-18); BUN/Creat Ratio 16.6 RATIO (10-20); CRP < 2.90 mg/L (0.0-3.0); Calcium,Total 8.7 mg/dL (8.5-10.1); Chloride 111 mmol/L (98-107); Creatinine, Serum 0.78 mg/dL (0.55-1.02); EST Glomerular Filtration Rate 84 mL/min (>60); Est Glom Filt Rate - Afr Amer 102 mL/min (>60); Globulin 3.3 g/dL (2.2-4.2); Glucose 78 mg/dL (74-106); Potassium 3.8 mmol/L (3.5-5.1); Protein, Total 6.6 g/dL (6.4-8.2); Sodium Level 142 mmol/L (136-145)
== END | disposition home or self-care (01) ==
LOC: MFPLAB 08:12
PROVIDERS: PCP Registered Nurse; Visit Provider Registered Nurse
DX: M05.79 Rheumatoid arthritis with rheumatoid factor of multiple sites without organ or systems involvement (principal)
CPT/HCPCS: 36415; 80053; 85025; 85652; 86140

== ENCOUNTER → 2023-07-03 | Outpatient (CLI) | payer OTHER, MEDICAID, SELFPAY ==
--- NOTE | 2023-07-03 09:31 | MRI_ITS ---
MR Enterography Abdomen/Pelvis WO/W Contrast 07/03/2023 12:07 PM COMPARISON: CT abdomen and pelvis 01/17/2021 CLINICAL HISTORY: K29.70 - Gastritis, unspecified, without bleeding -- ENTEROGRAPHY, intermittnet pain in G.I. tract for unknown # of yrs., hysterectomy, gall bladder removed TECHNIQUE: Following oral administration of enteric contrast and administration of glucagon, multiplanar T1 and T2 weighted images along with dynamic post-gadolinium images were obtained through the abdomen and pelvis. 13 cc of IV Clariscan was used. FINDINGS: GI Tract: Multiple loops of mostly proximal small bowel demonstrate wall thickening and mucosal hyperenhancement, including the terminal ileum. A few skip lesions are present. The transverse colon, descending colon and sigmoid colon demonstrate circumferential wall thickening with mucosal hyperenhancement and loss of haustration. There are multiple short segment areas of narrowing involving the transverse colon which appear to resolve after glucagon administration therefore most likely representing contractions. No stricture, fistula, or obstruction. No drainable fluid collections. Liver: Unremarkable Gallbladder: Status post cholecystectomy. Spleen: Unremarkable Pancreas: Unremarkable Adrenal Glands: Unremarkable Kidneys: Multiple small renal cysts. Reproductive: Status post hysterectomy. Bladder: Unremarkable Lymphadenopathy: Absent Ascites: Absent Bones: No suspicious lesions MRI/Enterography Abd/Pel IMPRESSION: Limited examination due to motion artifact and bowel under distention. Despite limitations: Findings suspicious for an acute flare of inflammatory bowel disease such as Crohn''s disease. No stricture, fistula, or obstruction. No drainable fluid collections. Multiple likely contractions involving the transverse colon. Recommend close attention on follow-up imaging and consider motility sequence (cine MRI) on next exam to rule out stenotic areas. Electronically Signed: Dilan Mckinley MD at 1:11 EDT ,
[2023-07-03] MEDS: Glucagon 1 MG/ML Syringe IV (12:29)
[2023-07-03 12:33] VITALS: BMI 29.7
[2023-07-03 12:55] VITALS: BP 152/68; PULSE 73; RESP 16; O2SAT 97
== END | disposition home or self-care (01) ==
LOC: MRI 09:30
PROVIDERS: PCP Registered Nurse; Visit Provider Internal Medicine Gastroenterology
DX: K29.70 Gastritis, unspecified, without bleeding (principal); R19.7 Diarrhea, unspecified
CPT/HCPCS: 74183; 96374; A9575; A4216; J1610

== ENCOUNTER → 2023-07-06 | Outpatient (CLI) | payer OTHER, MEDICAID, SELFPAY ==
[2023-07-06 10:58] LABS: Progesterone Level 11.91 ng/mL (See Comment); Vitamin D,25 Hydroxy 60.1 ng/mL
[2023-07-06 11:21] LABS: Estradiol 34.5 pg/mL
== END | disposition home or self-care (01) ==
LOC: MTLAB 08:08
PROVIDERS: PCP Registered Nurse; Visit Provider Specialist
DX: E55.9 Vitamin D deficiency, unspecified (principal); N95.1 Menopausal and female climacteric states
CPT/HCPCS: 36415; 82306; 82670; 84144; 84403

== ENCOUNTER → 2023-08-04 | Outpatient (CLI) | payer OTHER, MEDICAID, SELFPAY ==
--- NOTE | 2023-08-04 15:04 | BD_ITS ---
STUDY: DUAL ENERGY X-RAY ABSORPTIOMETRY / DXA REASON FOR EXAM: Female, 47 years old. Bone density screening TECHNIQUE: Bone Mineral Density (BMD) measurements of lumbar spine and bilateral hips were obtained. COMPARISON: Comparison is made with prior study dated December 26, 2020. FINDINGS: Lumbar Spine (L1-L4): g/cm2 (0.966) / T-score (-0.7) / Z-score (-0.2) Findings are suggestive of normal bone density with a low fracture risk. Left Femur Total: g/cm2 (0.794) / T-score (-1.2) / Z-score (-0.9) Left Femoral Neck: g/cm2 (0.655) / T-score (-1.7) / Z-score (-1.2) Right Femur Total: g/cm2 (0.788) / T-score (-1.3) / Z-score (-0.9) Right Femoral Neck: g/cm2 (0.682) / T-score (-1.5) / Z-score (-1.0) The T-Scores on the most recent prior examination were: Lumbar Spine (L1-L4): There has been improvement of bone density since the previous examination. Left Femur Total: which represents a worsening of 1.7%. Right Femur Total: which represents a worsening of 1.5%. BD/Dexa Bone Density Study IMPRESSION: The patient is considered osteopenic as outlined below according to World Rad Organization (WHO) criteria with a moderate fracture risk. There has been worsening of bone density since the previous examination. Reference Information: The T-score is the number of standard deviations above or below the standard which is normal for young adults at their peak bone mineral density. The World Health Organization (WHO) interprets the T-scores as follows: Above -1 Normal bone density Between -1 and -2.5 Osteopenia Equal to / or below -2.5 Osteoporosis As a practical clinical guideline, osteopenia may be graded as follows: Mild -1 through -1.5 Moderate -1.6 through -2.0 Severe -2.1 through -2.4 The Z-score is the number of standard deviations above or below age-matched controls. A Z-score of less than -1.5 would be considered abnormal. References: 1. NIH Osteoporosis and Related Bone Diseases www osteo.org 2. International Society for Clinical Densitometry www iscd.org 3. National Osteoporosis Foundation www nof.org Electronically Signed: Todd Espinosa MD at 14:24 EST ,
== END | disposition home or self-care (01) ==
LOC: OPBD 15:00
PROVIDERS: PCP Physician Assistant; Referring Provider Obstetrics & Gynecology; Visit Provider Obstetrics & Gynecology
DX: Z13.820 Encounter for screening for osteoporosis (principal); M85.80 Other specified disorders of bone density and structure, unspecified site
CPT/HCPCS: 77080

== ENCOUNTER → 2023-08-10 | Outpatient (CLI) | payer OTHER, MEDICAID, SELFPAY ==
[2023-08-10 07:02] LABS: Estradiol 24.8 pg/mL
[2023-08-10 10:02] LABS: Progesterone Level 5.47 ng/mL (See Comment); Vitamin B12 296 pg/mL (211-911); Vitamin D,25 Hydroxy 80.9 ng/mL
== END | disposition home or self-care (01) ==
LOC: LAB 05:38
PROVIDERS: Visit Provider Specialist
DX: E55.9 Vitamin D deficiency, unspecified (principal); R53.83 Other fatigue; N95.1 Menopausal and female climacteric states
CPT/HCPCS: 36415; 82306; 82607; 82670; 84144; 84403

== ENCOUNTER → 2023-08-26 | Outpatient (CLI) | payer OTHER, MEDICAID, SELFPAY ==
[2023-08-26 09:36] LABS: Absolute Lymphocyte Count 1.64 X10^3/uL (0.83-4.51); Basophil# 0.04 X10^3/uL; Basophil% 0.7 % (0-1); Eosinophil# 0.27 X10^3/uL; Hematocrit 40.8 % (37-47); Hemoglobin 12.6 g/dL (12.0-15.0); Lymphocyte # 1.64 X10^3/ul (0.83-4.51); Lymphocyte % 30.4 % (19-41); Mean Corp Hgb Conc 30.9 g/dL (32-36); Mean Corpuscular Hgb 28.2 pg (27.0-32.0); Mean Corpuscular Volume 91.3 fL (81-99); Mean Platelet Vol. 11.7 fl (6.2-12.0); Monocyte# 0.43 X10^3/uL; NRBC Flagged by Analyzer 0 % (0-5); Neutrophil # 2.99 X10^3/uL (2.7-7.7); Neutrophil % 55.5 % (47-70); Platelet Count 235 K/mm3 (150-450); RBC Distribution Width SD 43.3 fl (35.1-43.9); Red Blood Count 4.47 M/mm3 (4.2-5.4); White Blood Count 5.4 K/mm3 (4.4-11.0)
[2023-08-26 10:31] LABS: Color, Urine Yellow (Yellow); Glucose, Dipstick Normal (Normal); Ketone-Dipstick Negative (Negative); Leukocyte Esterase-Dipstick Negative /ul (Negative); Nitrite-Dipstick Negative (Negative); Occult Blood-Urine Negative /ul (Negative); Protein-Dipstick Negative (Negative); Urine Bilirubin Dipstick Negative (Negative); Urine Clarity Sl. Cloudy (Clear); Urine Urobilinogen Normal (Normal)
[2023-08-26 10:38] LABS: AST(SGOT) 26 U/L (15-37); Alanine Aminotransfer ALT/SGPT 24 U/L (13-56); Albumin, Serum 3.4 g/dL (3.2-5.0); Alkaline Phosphatase 64 U/L (45-117); Anion Gap 5 (5-15); BUN 13 mg/dL (7-18); Calcium,Total 8.8 mg/dL (8.5-10.1); Chloride 107 mmol/L (98-107); Creatinine, Serum 0.76 mg/dL (0.55-1.02); EST Glomerular Filtration Rate 86 mL/min (>60); Est Glom Filt Rate - Afr Amer 104 mL/min (>60); Globulin 3.5 g/dL (2.2-4.2); Glucose 98 mg/dL (74-106); Potassium 4.2 mmol/L (3.5-5.1); Protein, Total 6.9 g/dL (6.4-8.2); Sodium Level 138 mmol/L (136-145)
== END | disposition home or self-care (01) ==
LOC: LAB 09:17
PROVIDERS: Visit Provider Physician Assistant
DX: R53.83 Other fatigue (principal); R10.9 Unspecified abdominal pain
CPT/HCPCS: 36415; 80053; 81002; 85025; 87086; 87088

== ENCOUNTER → 2023-09-01 | Outpatient (CLI) | payer OTHER, MEDICAID, SELFPAY ==
[2023-09-01 10:35] LABS: Bacteria 0 SEEN /hpf (None Seen); Mucous, Urine 0 SEEN /hpf (<or=2+); Red Blood Cells-Urine 0 SEEN /hpf (0-5); Squamous Epithelial Cells - UA 0 SEEN /hpf (5-10); White Blood Cells 0 SEEN /hpf (0-5)
[2023-09-01 12:49] LABS: Color, Urine Yellow (Yellow); Glucose, Dipstick Normal (Normal); Ketone-Dipstick Negative (Negative); Leukocyte Esterase-Dipstick Negative /ul (Negative); Nitrite-Dipstick Negative (Negative); Occult Blood-Urine Negative /ul (Negative); Protein-Dipstick Negative (Negative); Urine Bilirubin Dipstick Negative (Negative); Urine Clarity Clear (Clear); Urine Urobilinogen Normal (Normal)
== END | disposition home or self-care (01) ==
LOC: MTLAB 10:15
PROVIDERS: Referring Provider Physician Assistant; Visit Provider Physician Assistant
DX: R19.7 Diarrhea, unspecified (principal); R10.9 Unspecified abdominal pain
CPT/HCPCS: 81001; 87493

== ENCOUNTER 2023-09-03 15:21 | Emergency (ER) | payer OTHER, MEDICAID, SELFPAY ==
[2023-09-03 15:24] VITALS: BP 150/88; PULSE 78; RESP 16; TEMP 36.6; O2SAT 98; BMI 26.2
[2023-09-03] MEDS: 0.9% Normal Saline (1000mL) 1,000 ML 999 ML IV ×2 (15:39→17:19)
[2023-09-03 15:48] LABS: Absolute Lymphocyte Count 1.97 X10^3/uL (0.83-4.51); Absolute Neutrophil Count 2.2 X10^3/uL (2.0-7.7); Basophil# 0.04 X10^3/uL; Basophil% 0.8 % (0-1); Eosinophil# 0.33 X10^3/uL; Eosinophils% 6.6 % (0-5); Hematocrit 40.3 % (37-47); Hemoglobin 12.4 g/dL (12.0-15.0); Lymphocyte # 1.97 X10^3/ul (0.83-4.51); Lymphocyte % 39.3 % (19-41); Mean Corp Hgb Conc 30.8 g/dL (32-36); Mean Corpuscular Hgb 27.6 pg (27.0-32.0); Mean Corpuscular Volume 89.6 fL (81-99); Mean Platelet Vol. 11.6 fl (6.2-12.0); Monocyte# 0.49 X10^3/uL; Monocyte% 9.8 % (0-10); NRBC Flagged by Analyzer 0 % (0-5); Neutrophil # 2.17 X10^3/uL (2.7-7.7); Neutrophil % 43.3 % (47-70); Platelet Count 229 K/mm3 (150-450); RBC Distribution Width CV 13.2 % (11.6-14.6); RBC Distribution Width SD 43.3 fl (35.1-43.9)
[2023-09-03 15:58] LABS: Internal QC Validated? YES +Cl - CLEAR BKGD; Pregnancy, Serum, hCG Quali. NEGATIVE Negative
[2023-09-03 16:04] LABS: ALB/GLOB Ratio 1.1 RATIO (0.9-2.4); AST(SGOT) 15 U/L (15-37); Alanine Aminotransfer ALT/SGPT 18 U/L (13-56); Albumin, Serum 3.7 g/dL (3.2-5.0); Alkaline Phosphatase 62 U/L (45-117); Anion Gap 3 (5-15); BUN 10 mg/dL (7-18); BUN/Creat Ratio 12.7 RATIO (10-20); Calcium,Total 8.6 mg/dL (8.5-10.1); Chloride 109 mmol/L (98-107); Creatinine, Serum 0.79 mg/dL (0.55-1.02); EST Glomerular Filtration Rate 83 mL/min (>60); Est Glom Filt Rate - Afr Amer 101 mL/min (>60); Globulin 3.4 g/dL (2.2-4.2); Glucose 95 mg/dL (74-106); Potassium 4.1 mmol/L (3.5-5.1); Protein, Total 7.1 g/dL (6.4-8.2); Sodium Level 143 mmol/L (136-145)
[2023-09-03 17:08] LABS: Color, Urine Yellow (Yellow); Glucose, Dipstick Normal (Normal); Ketone-Dipstick Negative (Negative); Leukocyte Esterase-Dipstick Negative /ul (Negative); Mucous, Urine 0 SEEN /hpf (<or=2+); Nitrite-Dipstick Negative (Negative); Occult Blood-Urine Negative /ul (Negative); Protein-Dipstick Negative (Negative); Red Blood Cells-Urine 0 SEEN /hpf (0-5); Specific Gravity, Urine 1.015 (1.002-1.030); Urine Bilirubin Dipstick Negative (Negative); Urine Clarity Clear (Clear); Urine Urobilinogen Normal (Normal); Urine pH 6.5 (5.0 - 8.0)
--- NOTE | 2023-09-03 17:08 | CT_ITS ---
STUDY: CT ABDOMEN AND PELVIS WITH CONTRAST REASON FOR EXAM: Female, 47 years old. Abdominal pain RADIATION DOSAGE (If Supplied By Facility): CTDIvol = ( 15.20 ) mGy, DLP = ( 564.72 ) mGycm TECHNIQUE: Transaxial images were obtained from the dome of the diaphragm to the symphysis pubis without oral contrast. IV 100mL Isovue-370 was administered. Sagittal and coronal images were reconstructed. Individualized dose optimization techniques were used for this CT. COMPARISON: January 17, 2021 CT scan abdomen and pelvis FINDINGS: The visualized lung bases are unremarkable. The visualized portions of the heart are within normal limits. Normal liver. Normal gallbladder and extrahepatic biliary system. Normal spleen. Normal pancreas. Normal bilateral adrenal glands. There is a small focus of low attenuation in the right kidney measuring 7 x 5 mm stable since prior study. There is a tiny cystic structure measuring 3 mm and 7.2 mm and 3.8 mm in the right kidney also stable since prior study. There is a cyst measuring 7.2 mm. Stable since prior study. Normal visualized stomach. There is a tortuous appearance of the proximal small bowel with the most to stasis appearance of the few air-fluid levels to appears to taper. There is a fecal fluid appearance of the descending colon, with air-fluid levels within the descending colon. The appendix is visualized and appears normal. Normal abdominal aorta. Normal inferior vena cava. Normal retroperitoneum. Normal urinary bladder. There is absence of the uterus consistent with a prior hysterectomy. Normal abdominal wall. Normal osseous structures. CT/Abdomen/Pelvis W IV Cont ONLY IMPRESSION: There is a fluid fecal appearance of the bowel contents with mild distention suggesting that the patient likely has diarrhea. There is a visualized mildly distended appearance of the proximal small bowel in the midline suggesting possible focal ileus. Recommend correlation with patient''s GI symptoms. Recommend correlation with clinical history possibility of inflammatory bowel disease. No appendicitis. Bilateral stable renal cysts. Nonvisualization of the gallbladder which is likely the surgically removed. Status post hysterectomy. Electronically Signed: Janneth Sevilla MD at 17:58 EST ,
[2023-09-03 17:17] LABS: Bacteria 4+ /hpf (None Seen); Squamous Epithelial Cells - UA 5-10 SEEN /hpf (5-10); White Blood Cells 0-5 SEEN /hpf (0-5)
[2023-09-03 18:38] LABS: CRP < 2.90 mg/L (0.0-3.0)
--- NOTE | 2023-09-03 18:47 | EX.ED.DYSGE1 ---
HPI History of Present Illness Chief Complaint: General Illness Narrative Narrative: 47-year-old female with history of IBS, C. difficile colitis, possible Crohn's disease. She is presenting with diarrhea for about a week. Patient reports that she had sinusitis a few weeks ago and was put on erythromycin by the urgent care. Patient states she developed diarrhea and follow-up with her PAYecenia Beavers. She reports that she had a C. difficile test which had a negative antigen and a negative toxin with reported toxigenic C. difficile by PCR. Patient was started on oral vancomycin to prevent C. difficile. Patient has had diarrhea and was sent to the ER for IV fluids. Patient is a patient of Dr. Taylor. Apparently she had an MRI in June which showed possible Crohn's colitis. Patient does have a history of this. She has autoimmune rheumatoid arthritis and is on leflunomide. Patient with very mild sporadic cramping pain throughout. No black or bloody stools PFSH PFSH Medical History Anemia Anxiety Anxiety Arthritis Back pain Cardiology follow-up encounter COVID-19 virus detected (10/01/20) Fatigue Fibromyalgia Gastric reflux Genetic testing of female GERD (gastroesophageal reflux disease) Hair loss Herpes labialis History of echocardiogram History of hiatal hernia History of stress test History of TIA (transient ischemic attack) (11/25/20) Hyperlipidemia IBS (irritable bowel syndrome) Inflammatory polyarthritis Instability of left patellofemoral joint Iron deficiency Left knee pain Leukopenia Migraine headache Non-smoker Patent foramen ovale Post-menopausal Rash Rheumatoid arthritis Rib injury Stiffness of left knee TIA (transient ischemic attack) Vision changes Vitamin A deficiency Wears glasses Home Medications acyclovir 400 mg tablet 400 mg PO DAILY PRN cold sore 04/07/16 [History Last Taken 08/15/17] alprazolam 0.5 mg tablet 0.5 mg PO DAILY 04/07/16 [History Last Taken 08/15/17] loperamide 2 mg capsule 4 mg PO DAILY diarrhea 04/07/16 [History Last Taken 08/15/17] leflunomide 10 mg tablet 10 mg PO DAILY RA 11/25/20 [History Last Taken Unknown] ibuprofen 600 mg tablet 600 mg PO Q6H PRN Pain 04/23/22 [History Last Taken Unknown] aspirin 81 mg tablet,delayed release (Adult Aspirin Regimen) 81 mg PO DAILY #90 tabs 03/18/23 [Rx Last Taken Unknown] cholecalciferol (vitamin D3) 25 mcg (1,000 unit) capsule 5,000 unit PO DAILY 06/05/23 [History Last Taken Unknown] gabapentin 300 mg capsule 300 mg PO QHS PRN pain, mild 06/05/23 [History Last Taken Unknown] lorazepam 1 mg tablet (Ativan) 1 mg PO DAILY PRN anxiety #1 TAB 06/12/23 [Rx Last Taken Unknown] fluticasone propionate 50 mcg/actuation nasal spray,suspension (Flonase Allergy Relief) 2 spray intranasal DAILY #16 grams 06/17/23 [Rx Last Taken Unknown] triamcinolone acetonide 55 mcg nasal spray aerosol (Nasacort Allergy) 2 spray intranasal DAILY #16.9 mL 06/17/23 [Rx Last Taken Unknown] budesonide 9 mg capsule,extended release 9 mg PO DAILY 90 days #90 caps 07/07/23 [Rx Last Taken Unknown] pantoprazole 40 mg tablet,delayed release (Protonix) 40 mg PO BID #60 tabs 07/16/23 [Rx Last Taken Unknown] azithromycin 250 mg tablet 250 mg PO QDAY #12 tabs 08/17/23 [Rx Last Taken Unknown] fluconazole 200 mg tablet 200 mg PO DAILY #2 tabs 08/24/23 [Rx Last Taken Unknown] dicyclomine 10 mg capsule 10 mg PO TID PRN abdominal cramping #30 caps 09/03/23 [Rx Last Taken Unknown] ondansetron 4 mg disintegrating tablet 4 mg PO Q8H PRN PRN Nausea #14 tabs 09/03/23 [Rx Last Taken Unknown] prednisone 20 mg tablet 20 mg PO DAILY #7 tabs 09/03/23 [Rx Last Taken Unknown] Allergy/AdvReac Type Severity Reaction Status Date / Time morphine Allergy Other Verified 09/03/23 15:24 bacitracin AdvReac Rash Verified 09/03/23 15:24 [From Neosporin ([id number])] metoclopramide [From Reglan] AdvReac Other Verified 09/03/23 15:24 metronidazole [From Flagyl] AdvReac Nausea Verified 09/03/23 15:24 neomycin AdvReac Rash Verified 09/03/23 15:24 [From Neosporin ([id number])] polymyxin B AdvReac Rash Verified 09/03/23 15:24 [From Neosporin ([id number])] sucralfate [From Carafate] AdvReac Nausea Verified 09/03/23 15:24 Family History Grandmother Uterine cancer Uncle Lung cancer Grandmother No problems noted. Grandfather Prostate cancer Surgical History H/O LEEP History of cholecystectomy History of hysterectomy History of right salpingo-oophorectomy History of tonsillectomy Hx of foot surgery Social History household members: family current occupational status: employed current occupation: [employer] current occupational exposures/hazards: No pets and animals: No sexually active: Yes Smoking Status: Never smoker alcohol intake: never substance use type: does not use caffeine: Yes seatbelt use: always ROS ROS ED Constitutional Constitutional ED: Denies chills, fever(s) or sweats Eyes Eyes: Denies blurry vision or change in vision ENT ENT ED: Denies ear pain or sore throat Cardiovascular Cardiovascular: Denies chest pain, palpitations or racing heartbeat Respiratory/Chest Respiratory/Chest: Denies cough, dyspnea or sputum Gastrointestinal Gastrointestinal: Reports abdominal pain and diarrhea; Denies constipation, nausea or vomiting Genitourinary Genitourinary ED: Denies dysuria, hematuria or urinary frequency Musculoskeletal Musculoskeletal: Denies arthralgias, myalgias or neck pain Integumentary Denies abscess, Abrasions or rash Neurologic Neurologic: Denies headache(s), paresthesias or weakness Psychiatric Psychiatric: Denies anxiety, depression, suicidal ideation or suicidal thoughts Endocrine Endocrinology: Denies polydipsia or polyuria EXAM Physical Exam Const Vital Signs: 09/03/23 15:24 09/03/23 17:00 Temperature 97.9 F Temperature Source Temporal Pulse Rate 78 Respiratory Rate 16 Respiratory Effort Normal Non-Labored Respiratory Pattern Normal Blood Pressure 150/88 H Blood Pressure Mean 108 Pulse Ox 98 Oxygen Delivery Method Room Air General Appearance ED: NAD; Negative for pallor HEENT Reports moist mucous membranes Eyes PERRL and EOMs intact bilaterally Neck no lymphadenopathy Resp normal respiratory effort Cardio regular rate and regular rhythm GI normal to inspection, nondistended, normoactive bowel sounds, non-tender and non-distended Extremity normal to inspection Neuro oriented x3 and CN's II-XII intact bilaterally Sensorium / Orientation: alert Motor Exam: strength 5/5 throughout Psych mental status grossly normal Skin no rashes or lesions noted and no wounds General Skin Exam: Negative for jaundice or pallor MDM MDM MDM Narrative Medical decision making narrative: Patient presenting with diarrhea after having erythromycin couple weeks ago. She has a history of C. difficile colitis but states she is always been antigen negative and oxygen negative. Patient has a similar finding today. Her PCR came back with toxigenic E. coli. She was started on oral vancomycin. She is taken a couple of doses of this. She was sent to the ER for IV fluids. Differential includes Crohn's, UC, C. difficile, viral colitis. CBC was obtained to assess for blood cell count, hemoglobin, platelets. CMP to assess liver function, renal function electrolytes, glucose. Also to assess for UTI. Patient was given IV fluids x 2 L. She was given Zofran for nausea. CT of the abdomen pelvis was performed which shows nonspecific colitis with possibility of inflammatory bowel disease. I discussed the case with Dr. Taylor who felt that the patient probably had IBS. He recommended 1 mg of prednisone daily for a week. He recommended 40 mg IV Solu-Medrol here in the ED. Patient will be started on Bentyl and prednisone as an outpatient. Return precautions were discussed. Impression: 1. Abdominal pain 2. Diarrhea 3. History of C. difficile 4. IBS Lab Data Labs: Laboratory Results - last 24 hr 09/03/23 09/03/23 15:40 16:55 WBC 5.0 RBC 4.50 Hgb 12.4 Hct 40.3 MCV 89.6 MCH 27.6 MCHC 30.8 L RDW Std Deviation 43.3 RDW Coeff of Milla 13.2 Plt Count 229 MPV 11.6 Immature Gran % (Auto) 0.200 Neut % (Auto) 43.3 L Lymph % (Auto) 39.3 [place] % (Auto) 9.8 Eos % (Auto) 6.6 H Baso % (Auto) 0.8 Absolute Neuts (auto) 2.2 Absolute Lymphs (auto) 1.97 Nucleated RBC % 0 Sodium 143 Potassium 4.1 Chloride 109 H Carbon Dioxide 31.0 Anion Gap 3 L BUN 10 Creatinine 0.79 Estim Creat Clear Calc 83.30 Est GFR (MDRD) Af Amer 101 Est GFR (MDRD) Non-Af 83 BUN/Creatinine Ratio 12.7 Glucose 95 Calcium 8.6 Total Bilirubin 0.30 AST 15 ALT 18 Alkaline Phosphatase 62 C-React Prot Ext Range < 2.90 Total Protein 7.1 Albumin 3.7 Globulin 3.4 Albumin/Globulin Ratio 1.1 Serum , Qual NEGATIVE Urine Color Yellow Urine Clarity Clear Urine pH 6.5 Ur Specific [place] 1.015 Urine Protein Negative Urine Glucose (UA) Normal Urine Ketones Negative Urine Occult Blood Negative Urine Nitrite Negative Urine Bilirubin Negative Urine Urobilinogen Normal Ur Leukocyte Esterase Negative Urine RBC 0 SEEN Urine WBC 0-5 SEEN Ur Squamous Epith Cells 5-10 SEEN Urine Bacteria 4+ Urine Mucus 0 SEEN Radiography Diagnostic Testing: Clinical Impression(s) from Imaging Studies Abdomen/Pelvis CT 09/03/23 17:08 IMPRESSION: There is a fluid fecal appearance of the bowel contents with mild distention suggesting that the patient likely has diarrhea. There is a visualized mildly distended appearance of the proximal small bowel in the midline suggesting possible focal ileus. Recommend correlation with patient''s GI symptoms. Recommend correlation with clinical history possibility of inflammatory bowel disease. No appendicitis. Bilateral stable renal cysts. Nonvisualization of the gallbladder which is likely the surgically removed. Status post hysterectomy. Electronically Signed: Janneth Sevilla MD at 17:58 EST Reading Location ID and State: [facility] [place] Tel , Service support , Discharge Plan Triage Chief Complaint: General Illness ED Provider: Stephane Luong Dx/Rx/DC Orders Clinical Impression: IBS (irritable bowel syndrome) Instructions: ED Irritable Bowel Syndrome Prescriptions: New dicyclomine 10 mg capsule 10 mg PO TID PRN (Reason: abdominal cramping) Qty: 30 0RF ondansetron 4 mg tablet,disintegrating 4 mg PO Q8H PRN PRN (Reason: Nausea) Qty: 14 0RF prednisone 20 mg tablet 20 mg PO DAILY Qty: 7 0RF No Action cholecalciferol (vitamin D3) 25 mcg (1,000 unit) capsule 5,000 unit PO DAILY fluticasone propionate [Flonase Allergy Relief] 50 mcg/actuation spray,suspension 2 spray intranasal DAILY Qty: 16 0RF Hold Instructions: has not started yet Rx Instructions: administer into each nostril triamcinolone acetonide [Nasacort Allergy] 55 mcg aerosol,spray 2 spray intranasal DAILY Qty: 16.9 0RF Rx Instructions: administer into each nostril azithromycin 250 mg tablet 250 mg PO QDAY Qty: 12 0RF Rx Instructions: 2 tablets today, then 1 tablet daily on days 2 through 11 loperamide 2 MG capsule 4 mg PO DAILY Patient Comments: diarrhea alprazolam 0.5 MG tablet 0.5 mg PO DAILY Patient Comments: anxiety acyclovir 400 MG tablet 400 mg PO DAILY PRN (Reason: cold sore) Patient Comments: anti viral leflunomide 10 MG tablet 10 mg PO DAILY ibuprofen 600 mg Tablet 600 mg PO Q6H PRN (Reason: Pain) Hold Instructions: Order Completed aspirin [Adult Aspirin Regimen] 81 mg tablet,delayed release (DR/EC) 81 mg PO DAILY Qty: 90 3RF gabapentin 300 mg capsule 300 mg PO QHS PRN (Reason: pain, mild) lorazepam [Ativan] 1 mg tablet 1 mg PO DAILY PRN (Reason: anxiety) Qty: 1 0RF budesonide 9 mg capsule, extended release 9 mg PO DAILY 90 Days Qty: 90 0RF pantoprazole [Protonix] 40 mg tablet,delayed release (DR/EC) 40 mg PO BID Qty: 60 2RF fluconazole 200 mg tablet 200 mg PO DAILY Qty: 2 0RF Rx Instructions: take one tablet, repeat with 2nd tablet in 24 hours if w/o resolution Primary Care Provider: Choco Beavers Referrals: Soto Taylor DO [Med Staff - Active Staff] - Choco Beavers PA [Primary Care Provider] - Disposition Disposition: Home, Self Care
[2023-09-03 18:58] LABS: Erythrocyte Sedimentation Rate 4 mm/hr (0-30)
[2023-09-03] MEDS: Ondansetron 4 MG/2 ML Vial IV (18:58)
[2023-09-03 19:01] VITALS: BP 124/68; PULSE 77; RESP 15; O2SAT 98
== END 2023-09-03 19:04 | disposition home or self-care (01) ==
PROVIDERS: Emergency Provider Student in an Organized Health Care Education/Training Program; PCP Physician Assistant; Visit Provider Student in an Organized Health Care Education/Training Program
DX: K58.0 Irritable bowel syndrome with diarrhea (principal); M06.9 Rheumatoid arthritis, unspecified; E78.5 Hyperlipidemia, unspecified; Z79.899 Other long term (current) drug therapy; Z86.73 Personal history of transient ischemic attack (TIA), and cerebral infarction without residual deficits; F41.9 Anxiety disorder, unspecified; Z79.82 Long term (current) use of aspirin; K21.9 Gastro-esophageal reflux disease without esophagitis; Z90.49 Acquired absence of other specified parts of digestive tract; Z90.710 Acquired absence of both cervix and uterus; R10.9 Unspecified abdominal pain; Z86.19 Personal history of other infectious and parasitic diseases
CPT/HCPCS: 74177; 80053; 81001; 84703; 85025; 85652; 86140; 96361; 96374; 99283; J7030; Q9967; A4216; J2405

== ENCOUNTER → 2023-09-07 | Outpatient (CLI) | payer OTHER, MEDICAID, SELFPAY ==
[2023-09-07 10:01] LABS: Erythrocyte Sedimentation Rate 7 mm/hr (0-30)
[2023-09-07 10:03] LABS: Absolute Lymphocyte Count 2.34 X10^3/uL (0.83-4.51); Absolute Neutrophil Count 3.4 X10^3/uL (2.0-7.7); Basophil# 0.05 X10^3/uL; Basophil% 0.8 % (0-1); Eosinophil# 0.14 X10^3/uL; Eosinophils% 2.2 % (0-5); Hematocrit 40.4 % (37-47); Hemoglobin 12.6 g/dL (12.0-15.0); Lymphocyte # 2.34 X10^3/ul (0.83-4.51); Lymphocyte % 36.6 % (19-41); Mean Corp Hgb Conc 31.2 g/dL (32-36); Mean Corpuscular Hgb 28.1 pg (27.0-32.0); Mean Corpuscular Volume 90.2 fL (81-99); Mean Platelet Vol. 12.7 fl (6.2-12.0); Monocyte# 0.45 X10^3/uL; NRBC Flagged by Analyzer 0 % (0-5); Neutrophil % 53.2 % (47-70); Platelet Count 236 K/mm3 (150-450); RBC Distribution Width CV 13.2 % (11.6-14.6); RBC Distribution Width SD 43.3 fl (35.1-43.9); Red Blood Count 4.48 M/mm3 (4.2-5.4); White Blood Count 6.4 K/mm3 (4.4-11.0)
[2023-09-07 10:58] LABS: ALB/GLOB Ratio 0.9 RATIO (0.9-2.4); AST(SGOT) 6 U/L (15-37); Alanine Aminotransfer ALT/SGPT 15 U/L (13-56); Albumin, Serum 3.4 g/dL (3.2-5.0); Alkaline Phosphatase 58 U/L (45-117); Anion Gap 9 (5-15); BUN 18 mg/dL (7-18); BUN/Creat Ratio 23.2 RATIO (10-20); CRP < 2.90 mg/L (0.0-3.0); Calcium,Total 8.9 mg/dL (8.5-10.1); Chloride 108 mmol/L (98-107); Creatinine, Serum 0.78 mg/dL (0.55-1.02); EST Glomerular Filtration Rate 85 mL/min (>60); Est Glom Filt Rate - Afr Amer 103 mL/min (>60); Globulin 3.6 g/dL (2.2-4.2); Glucose 98 mg/dL (74-106); Potassium 3.1 mmol/L (3.5-5.1); Sodium Level 140 mmol/L (136-145)
== END | disposition home or self-care (01) ==
LOC: MTLAB 07:57
PROVIDERS: PCP Physician Assistant; Referring Provider Registered Nurse; Visit Provider Registered Nurse
DX: M05.79 Rheumatoid arthritis with rheumatoid factor of multiple sites without organ or systems involvement (principal)
CPT/HCPCS: 36415; 80053; 85025; 85652; 86140

== ENCOUNTER → 2023-09-10 | Outpatient (CLI) | payer OTHER, MEDICAID, SELFPAY ==
--- NOTE | 2023-09-10 08:00 | RAD_ITS ---
STUDY: X-RAY - ESOPHAGUS (BARIUM SWALLOW) WITH FLUOROSCOPY REASON FOR EXAM: Female, 47 years old. DYSPHAGIA 12 MM TABLET TECHNIQUE: 16 view(s) of the esophagus were obtained following swallowing of barium. FLUOROSCOPY TIME (if supplied): (31 seconds) minutes/seconds. 5.5 mGy COMPARISON: None. FINDINGS: There is no demonstrated esophageal foreign body. There is no demonstrated stricture or mucosal abnormality. Normal gastroesophageal junction, without a demonstrated hiatal hernia. The patient ingested a 12 mm tablet of barium without any difficulty. Normal visualized aortic arch and descending thoracic aorta. Normal visualized pulmonary parenchyma. Normal visualized osseous structures of the thorax. RAD/Esophagus Dual Contrast IMPRESSION: Normal plain film x-ray examination (barium swallow) of the esophagus. Electronically Signed: Todd Espinosa MD at 9:30 EST ,
== END | disposition home or self-care (01) ==
LOC: RAD 07:45
PROVIDERS: PCP Physician Assistant; Referring Provider Otolaryngology Otolaryngology/Facial Plastic Surgery; Visit Provider Otolaryngology Otolaryngology/Facial Plastic Surgery
DX: R13.10 Dysphagia, unspecified (principal)
CPT/HCPCS: 74221

== ENCOUNTER → 2023-09-10 | Outpatient (CLI) | payer OTHER, MEDICAID, SELFPAY ==
[2023-09-10 11:00] LABS: Estradiol 67.3 pg/mL
[2023-09-10 11:09] LABS: Progesterone Level < 0.21 ng/mL (See Comment)
== END | disposition home or self-care (01) ==
LOC: LAB 09:01
PROVIDERS: PCP Physician Assistant
DX: N95.1 Menopausal and female climacteric states (principal)
CPT/HCPCS: 36415; 82670; 84144; 84403

== ENCOUNTER → 2023-09-22 | Outpatient (CLI) | payer OTHER, MEDICAID, SELFPAY ==
[2023-09-22 10:28] LABS: Vitamin B12 253 pg/mL (211-911); Vitamin D,25 Hydroxy 62.7 ng/mL
== END | disposition home or self-care (01) ==
LOC: MTLAB 07:34
PROVIDERS: PCP Physician Assistant; Referring Provider Specialist; Visit Provider Specialist
DX: R53.83 Other fatigue (principal); E55.9 Vitamin D deficiency, unspecified
CPT/HCPCS: 36415; 82306; 82607

== ENCOUNTER → 2023-09-25 | Outpatient (CLI) | payer OTHER, MEDICAID, SELFPAY ==
--- OUTSIDE RECORDS SUMMARY | 2023-09-25 10:59 | XMS RPT_ITS | CCD ---
Author Name Unknown Address [address] [place] [address] Organization [facility] Care Team Providers Care Dairy Specialist Name Role Phone MD Lisa, Isai Cristobal Unavailable Whit RICARDO, Zenaida Good Unavailable Unavailable Betzy RICARDO, Joyce Rabago Unavailable KIDD PA-C, GINO Angelica Primary Care Physician [phone] Kidd, Gino Primary Care Provider Kidd, Gino Primary Care Provider [phone] KIDD, GINO PA-C Primary Care Unavailable KIDD, [...] Consulting Unavailable YUDI RIVERO Attending Unavailab le AMICONEYUDIFUNCTIONAL DIRECTOR Primary Care Unavailab le AMICONEYUDI Admitting Unavailab [...] Drug Allergy 7 Eruption of skin (disorder) [facility] Work Phone: [phone] (5 sources) metroNIDAZOLE; Translations: [Metronidazole] Drug Allergy 7 Vomiting (disorder) [facility] Work Phone: [phone] (8 sources) morphine; Translations: [Morphine] Drug Allergy 5 Headache (finding), Vomiting (disorder), Other: See Comments [facility] Work Phone: [phone] (4 sources) Sucralfate; Translations: [sucralfate] Drug Allergy 1 Nausea (finding), GI Upset [facility] (2 sources) bacitracin / neomycin / polymyxin b Drug Allergy 5 Rash [facility] Work Phone: (2 sources) metroNIDAZOLE Drug Allergy 0 GI Upset [facility] (1 source) 12/08/17 (+) CDIFF; Translations: [12/08/17 (+) CDIFF] Propensity to adverse reactions (disorder) [facility] (1 source) 10/19/2019 (+) CDIFF AG; Translations: [10/19/2019 (+) CDIFF AG] Propensity to adverse reactions (disorder) [facility] (1 source) 11/03/2019 (-) CDIFF; Translations: [11/03/2019 (-) CDIFF] Propensity to adverse reactions (disorder) [facility] (1 source) 08/10/2020 (+) CDIFF AG; Translations: [08/10/2020 (+) CDIFF AG] Propensity to adverse reactions (disorder) [facility] (1 source) 01/24/21 (+) CDIFF AG; Translations: [01/24/21 (+) CDIFF AG] Propensity to adverse reactions (disorder) [facility] Medications Current Medications Medication Drug [...] % OINT apply topically as directed ACYCLOVIR [id number] Zenaida Sherman RN Completed/Discontinued Medications Medication Drug [...] Start: 05-10-2022 End: 05-10-2022 ambulatory GINO KIDD [facility] Start: 05-09-2022 Refill Alexandra Killian MD Work Phone: [facility] [place] Procedures Date Procedure Procedure Detail Performing Clinician [...] Author Start: 03-03-2025 DIABETES SCREEN DIABETES SCREEN [facility] Start: 11-24-2024 Colonoscopy COLONOSCOPY [facility] Start: 11-24-2024 COLORECTAL CANCER SCREENING COLORECTAL CANCER SCREENING [facility] Start: 05-29-2022 Influenza vaccination INFLUENZA (#1) [facility] Start: 01-29-2022 Adult depression screening assessment DEPRESSION SCREENING [facility] Start: 2021 COLOGUARD (FIT-DNA) COLOGUARD (FIT-DNA) [facility] Start: [address] COLONOGRAPHY [facility] Start: 2021 DIABETES SCREEN DIABETES SCREEN [facility] Start: 2021 FECAL OCCULT BLOOD FECAL OCCULT BLOOD [facility] Start: 2021 LIPID SCREEN LIPID SCREEN [facility] Start: 2021 SIGMOIDOSCOPY SIGMOIDOSCOPY [facility] Start: 05-29-2021 Influenza vaccination INFLUENZA (#1) [facility] Start: 11-05-2017 Mammography MAMMOGRAM [facility] Start: 08-26-2017 End: 08-26-2017 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 [facility] Work Phone: Start: 08-26-2017 End: 08-26-2017 Follow Up Appt Other Follow Up Appt Other [facility] Lalo wilson Work Phone: Start: 08-26-2017 End: 08-26-2017 Appointment Appointment [facility] Work Phone: Start: 08-18-2017 End: 08-24-2017 Cardiovascular stress test using treadmill Treadmill stress test (no imaging) [facility] Work Phone: Start: 1995 SHINGRIX VACCINE (1 of 2) SHINGRIX VACCINE (1 of 2) [facility] Start: 1995 Urine microalbumin profile DTAP,TDAP,TD (1 - Tdap) [facility] Start: 1994 HEPATITIS C SCREENING HEPATITIS C SCREENING [facility] Start: 1994 HIV SCREENING HIV SCREENING [facility] Start: 1988 COVID-19 VACCINE (1) COVID-19 VACCINE (1) [facility] Start: 1982 PNEUMOCOCCAL (1 - PCV) PNEUMOCOCCAL (1 - PCV) [facility] Start: 04-28-1977 COVID-19 VACCINE (#1) COVID-19 VACCINE (#1) [facility] Start: 1976 HEPATITIS B (1 of 3 - 3-dose series) HEPATITIS B (1 of 3 - 3-dose series) [facility] Immunizations Immunization Date Immunization Notes Care Provider Fa cility 07-25-2016 influenza virus vacc ine, unspecified formulation Alexandra Killian MD Work Phone: [facility] Payers Date Payer Category Payer Unknown [employer] [facility] [employer] [id number] 09/28/2015-Present [address] [facility] [id number] [place] [address] Indemnity [id number] 05-29-2003 Medicaid [place] [employer] [place] [employer] [id number] 05/29/2003-Present [phone] [place] [address] Medicaid [id number] 05-29-2003 Medicaid [place] [id number] 05/29/2003-Present [phone] [address] [facility] [place] [address] Medicaid [id number] 1976 Unknown [id number] 2.16.840.1.570366.3.579.2.651 1976 Unknown [id number] 2.16.840.1.936177.3.579.2.651 1976 Unknown [id number] 2.16.840.1.562334.3.579.2 1976 Unknown [id number] 2.16.840.1.016375.3.579.2 1976 Unknown [id number] 2.16.840.1.443979.3.579.2 1976 Unknown [id number] 2.16.840.1.796221.3.579.2 1976 Unknown [id number] 2.16.840.1.913113.3.579.2 1976 Unknown [id number] 2.16.840.1.195192.3.579. 1976 Unknown [id number] 2.16.840.1.957118.3.579. 1976 Unknown [id number] 2.16.840.1.802914.3.579. 1976 Unknown [id number] 2.16.840.1.312525.3.579. 1976 Unknown [id number] 2.16.840.1.450990.3.579.2 1976 Unknown [id number] 2.16.840.1.600661.3.579.2 1976 Unknown [id number] 2.16.840.1.457483.3.579.2 1976 Unknown [id number] 2.16.840.1.710760.3.579.2 1976 Unknown [id number] 2.16.840.1.180121.3.579.2 1976 Unknown [id number] 2.16.840.1.085248.3.579.2 1976 Unknown [id number] 2.16.840.1.796837.3.579.2 1976 Unknown [id number] 2.16.840.1.026427.3.579.2.651 1976 Unknown [id number] 2.16.840.1.168059.3.579.2.651 1976 Unknown [id number] 2.16.840.1.996600.3.579.2.65 Unknown [id number] Social History Date Type Detail Facility Start: 07-31-2021 Never smoked t obacco (finding) [facility] Sex Assigned At Female [facility] Start: 09-19-2021 Alcohol intake 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 A Diagnostic radioactive procedure has taken place, with no further precautions necessary other than routine body substance precautions. More information regarding radiation safety can be found using this link: [email or web address] SIGNATURE: PATRICIO Olvera PATIENT NAME: Derick Grissom DATE: July 31, 2021 TIME: 9:08 AM PAGER/CONTACT #: 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 Acne Vulgaris: Inflammatory Grade II 06/15/2010 06/15/2010 documented as of this encounter (statuses as of 05/09/2022) [facility] Diagnosis Epigastric abdominal pain Abdominal pain, epigastric documented in this encounter [facility] note* Diagnosis Epigastric abdominal pain Abdominal pain, epigastric documented in this encounter [facility] course Narrative No data available for this section [facility] Hospital Discharge instructions No data available for this section [facility] Progress note No data available for this section [facility] Summary Purpose Family History No Family History Records FoundNo Family History Records FoundNo Family History Records FoundNo Family History Records FoundNo Family History Records Found Advance Directives No Advanced Directives Records FoundDocuments on File Type Date Recorded 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 DATE CREATED AUTHOR AUTHOR'S ORGANIZ ATION 05/26/2022 Luis Manuel Vasquez [facility] DATE CREATED AUTHOR AUTHOR'S ORGANIZ ATION 01/04/2023 [facility] DATE CREATED AUTHOR AUTHOR'S ORGANIZ ATION 03/19/2023 [facility] Source Comments (unrecognize d section and content) In the event this informatio n is protected by the Federal Confidentiality of Alcohol and Drug Abuse Patient Records regulations: The Federal rules restrict any use of the information to criminally investigate or prosecute any alcohol or drug abuse patient.[facility] the event this information is protected by the Federal Confidentiality of Alcohol and Drug Abuse Patient Records regulations: The Federal rules restrict any use of the information to criminally investigate or prosecute any alcohol or drug abuse patient.[facility] Reason for Visit (unrecogniz ed section and content) Care Teams (unrecognized sec tion and content) Dairy Specialist Relationship Specialty Start Date End Date Gino Kidd [address] [place] [address] [place] [address] PCP - General Family Practice 04/19/21 FOR [...] BE BASED ON THE PRIMARY CLINICAL RECORDS. [employer] [facility]. provides no warranty or guarantee of the accuracy or completeness of information in this document.
[2023-09-25 11:05] LABS: AST(SGOT) 27 U/L (15-37); Alanine Aminotransfer ALT/SGPT 43 U/L (13-56); Albumin, Serum 3.5 g/dL (3.2-5.0); Alkaline Phosphatase 62 U/L (45-117); Anion Gap 5 (5-15); BUN 14 mg/dL (7-18); BUN/Creat Ratio 18.5 RATIO (10-20); Calcium,Total 8.5 mg/dL (8.5-10.1); Chloride 107 mmol/L (98-107); Creatinine, Serum 0.76 mg/dL (0.55-1.02); EST Glomerular Filtration Rate 87 mL/min (>60); Est Glom Filt Rate - Afr Amer 106 mL/min (>60); Globulin 3.5 g/dL (2.2-4.2); Glucose 81 mg/dL (74-106); Potassium 3.7 mmol/L (3.5-5.1); Sodium Level 142 mmol/L (136-145)
== END | disposition home or self-care (01) ==
PROVIDERS: PCP Physician Assistant; Referring Provider Registered Nurse; Visit Provider Registered Nurse
DX: E87.6 Hypokalemia (principal)
CPT/HCPCS: 36415; 80053

== ENCOUNTER → 2023-10-13 | Outpatient (CLI) | payer OTHER, SELFPAY ==
[2023-10-13 12:24] LABS: Absolute Neutrophil Count 2.1 X10^3/uL (2.0-7.7); Basophil# 0.05 X10^3/uL; Basophil% 0.9 % (0-1); Eosinophil# 0.15 X10^3/uL; Eosinophils% 2.6 % (0-5); Hematocrit 40.2 % (37-47); Hemoglobin 12.4 g/dL (12.0-15.0); Lymphocyte % 50.8 % (19-41); Mean Corp Hgb Conc 30.8 g/dL (32-36); Mean Corpuscular Volume 90.7 fL (81-99); Mean Platelet Vol. 12.4 fl (6.2-12.0); Monocyte% 8.8 % (0-10); NRBC Flagged by Analyzer 0 % (0-5); Neutrophil % 36.7 % (47-70); Platelet Count 224 K/mm3 (150-450); RBC Distribution Width CV 14.1 % (11.6-14.6); RBC Distribution Width SD 47.2 fl (35.1-43.9); Red Blood Count 4.43 M/mm3 (4.2-5.4); White Blood Count 5.7 K/mm3 (4.4-11.0)
[2023-10-13 13:06] LABS: Progesterone Level 5.89 ng/mL (See Comment)
[2023-10-13 13:11] LABS: Ferritin 18 ng/mL (8-252); Iron 65 ug/dL (50-170); Iron Binding Capacity,Total 425 ug/dL (250-450); PERCENT IRON SATURATION 15.3 % (15.0-55.0)
[2023-10-13 13:13] LABS: Estradiol 79.3 pg/mL
[2023-10-13 16:46] LABS: ALB/GLOB Ratio 1.1 RATIO (0.9-2.4); AST(SGOT) 13 U/L (15-37); Alanine Aminotransfer ALT/SGPT 16 U/L (13-56); Albumin, Serum 3.6 g/dL (3.2-5.0); Alkaline Phosphatase 67 U/L (45-117); Anion Gap 7 (5-15); BUN 12 mg/dL (7-18); BUN/Creat Ratio 14.6 RATIO (10-20); Calcium,Total 9.3 mg/dL (8.5-10.1); Chloride 106 mmol/L (98-107); Creatinine, Serum 0.82 mg/dL (0.55-1.02); EST Glomerular Filtration Rate 79 mL/min (>60); Est Glom Filt Rate - Afr Amer 96 mL/min (>60); Globulin 3.3 g/dL (2.2-4.2); Glucose 98 mg/dL (74-106); Magnesium 2.2 mg/dL (1.6-2.6); Potassium 3.5 mmol/L (3.5-5.1); Protein, Total 6.9 g/dL (6.4-8.2); Sodium Level 140 mmol/L (136-145)
== END | disposition home or self-care (01) ==
PROVIDERS: Internal Medicine Hematology & Oncology; PCP Physician Assistant; Visit Provider Specialist
DX: N95.1 Menopausal and female climacteric states (principal); G25.81 Restless legs syndrome; D50.9 Iron deficiency anemia, unspecified
CPT/HCPCS: 36415; 80053; 82670; 82728; 83540; 83550; 83735; 84144; 84403; 85025

== ENCOUNTER 2023-11-15 09:55 | Observation (INO) | payer OTHER, SELFPAY ==
[2023-11-15] VITALS (10 sets, daily range): BP systolic 118–199; BP diastolic 70–102; PULSE 72–93; RESP 14–18; TEMP 36.6–36.8; O2SAT 98–100; BMI 27.0; BMI 26.3
--- NOTE | 2023-11-15 09:57 | RAD_ITS ---
EXAM: XR CHEST, 1 VIEW CLINICAL INDICATION: Neuro deficit, acute, stroke suspected TECHNIQUE: Frontal view of the chest. COMPARISON: XR Chest dated 09/30/2022 FINDINGS: LUNGS AND PLEURAL SPACES: Normal. No consolidation or edema. No pneumothorax. No effusion. HEART: Normal heart size. MEDIASTINUM: No mediastinal or hilar mass. BONES/JOINTS: No acute abnormality. RAD/Chest 1 View IMPRESSION: No acute cardiopulmonary abnormality. No interval change. Electronically Signed: Shan Lopez MD at 10:59 EST ,
--- NOTE | 2023-11-15 09:57 | CT_ITS ---
We are attempting to reach an attending provider to discuss findings. An addendum with communication details will be sent when the communication is complete. EXAM: CT HEAD WITHOUT INTRAVENOUS CONTRAST CLINICAL INDICATION: Neuro deficit, acute, stroke suspected TECHNIQUE: Multiple axial images were obtained of the head without intravenous contrast. This CT exam was performed using one or more of the following dose reduction techniques: automated exposure control, adjustment of the mA and/or kV according to patient size, and/or use of iterative reconstruction technique. COMPARISON: No relevant prior studies available. FINDINGS: BRAIN AND EXTRA-AXIAL SPACES: Normal. Normal brain attenuation. No intra- or extra-axial hemorrhage. No acute infarct. No intracranial mass or mass effect. There is preservation of the lucas/white matter interface. Posterior fossa structures are unremarkable. Ventricles are appropriate for age. No hydrocephalus. Basal cisterns are patent. BONES/JOINTS: Normal calvarium. SINUSES: No acute sinusitis. MASTOID AIR CELLS: Normal. Clear. CT/STROKE Brain/Head without Cont IMPRESSION: 1. No acute intracranial abnormality. 2. Aspect score 10. Electronically Signed: Shan Lopez MD at 10:23 EST ,
--- NOTE | 2023-11-15 09:57 | EKG12_ITS ---
Test Reason : STROKE ALERT Blood Pressure : / mmHG Vent. Rate : 071 BPM Atrial Rate : 071 BPM P-R Int : 194 ms QRS Dur : 080 ms QT Int : 408 ms P-R-T Axes : 070 -11 026 degrees QTc Int : 443 ms Normal sinus rhythm Possible Left atrial enlargement Low voltage QRS Borderline ECG Confirmed by JAYY RAMOS, WAI ([id number]), editor & co founder JOANA CESPEDES ([id number]) on 11/16/2023 10:09:25 AM Referred By: Confirmed By:WAI HOPE MD
--- NOTE | 2023-11-15 09:58 | CT_ITS ---
We are attempting to reach an attending provider to discuss findings. An addendum with communication details will be sent when the communication is complete. INDICATION: Neuro deficit, acute, stroke suspected EXAMINATION: CTA HEAD - CTA Head and Neck Stroke W/ Contrast (and W/O if performed) TECHNIQUE: Solomon of Wright/head CT angiogram protocol was performed following IV contrast. Routine carotid CT angiogram protocol was performed without and with IV contrast. NASCET criteria using the distal ICAs for comparison were used for evaluation of stenoses. 3D reconstructions were reviewed of the CT angiogram head and neck. A radiation dose optimization technique was used for this scan. IV Contrast dosage and agent: 100 cc [id number] COMPARISON: None. FINDINGS: --Anterior cerebral circulation: ACAs: No significant stenosis at the visualized segments. ACOM: Present. MCAs: No significant stenosis at the visualized segments. --Posterior cerebral circulation: PCOMs: Not present. passenger tire builder: No significant stenosis at the visualized segments. BASILAR ARTERY: No significant stenosis. --Carotid and vertebral circulation: AORTIC ARCH AND BRANCHES: Normal anatomy, patent. RIGHT CCA: No occlusion, significant stenosis or dissection. RIGHT ICA: No occlusion, significant stenosis or dissection. LEFT CCA: No occlusion, significant stenosis or dissection. LEFT ICA: No occlusion, significant stenosis or dissection. RIGHT VERTEBRAL ARTERY: No occlusion, significant stenosis or dissection. LEFT VERTEBRAL ARTERY: No occlusion, significant stenosis or dissection. NECK SOFT TISSUES: Unremarkable. LUNG APICES: Clear. BONES: Unremarkable. CT/STROKE CTA Head AND Neck W/Con IMPRESSION: Normal CTA Head and CTA Neck Electronically Signed: Shan Lopez MD at 10:35 EST ,
--- NOTE | 2023-11-15 09:59 | ED.VIS.STROK ---
HPI History of Present Illness Chief Complaint: Stroke Alert Detail of Chief Complaint: Loss of vision left eye Informant: patient Narrative Narrative: Patient presents the emergency department complaint loss of vision in her left eye. Patient states that she has had similar episodes in the past her last episode being in October 2020. About 10 minutes prior to arrival in the emergency department she noted that she could not see from her left eye. Did not seem to improve and then just have some lateral peripheral vision loss with the left eye. Now she thinks maybe her symptoms have resolved. She denies slurred speech. She denies weakness to the extremities or paresthesias. Denies any falls or head injuries. She does have history of rheumatoid arthritis. [facility] Medical History Anemia Anxiety Anxiety Arthritis Back pain Cardiology follow-up encounter COVID-19 virus detected (10/01/20) Fatigue Fibromyalgia Gastric reflux Genetic testing of female GERD (gastroesophageal reflux disease) Hair loss Herpes labialis History of echocardiogram History of hiatal hernia History of stress test History of TIA (transient ischemic attack) (11/25/20) Hyperlipidemia IBS (irritable bowel syndrome) Inflammatory polyarthritis Instability of left patellofemoral joint Iron deficiency Left knee pain Leukopenia Migraine headache Non-smoker Patent foramen ovale Post-menopausal Rash Rheumatoid arthritis Rib injury Stiffness of left knee TIA (transient ischemic attack) Vision changes Vitamin A deficiency Wears glasses Home Medications acyclovir 400 mg tablet 400 mg PO DAILY PRN cold sore 04/07/16 [History Last Taken 08/15/17] alprazolam 0.5 mg tablet 0.5 mg PO DAILY 04/07/16 [History Last Taken 08/15/17] loperamide 2 mg capsule 4 mg PO DAILY diarrhea 04/07/16 [History Last Taken 08/15/17] leflunomide 10 mg tablet 10 mg PO DAILY RA 11/25/20 [History Last Taken Unknown] ibuprofen 600 mg tablet 600 mg PO Q6H PRN Pain 04/23/22 [History Last Taken Unknown] aspirin 81 mg tablet,delayed release (Adult Aspirin Regimen) 81 mg PO DAILY #90 tabs 03/18/23 [Rx Last Taken Unknown] cholecalciferol (vitamin D3) 25 mcg (1,000 unit) capsule 5,000 unit PO DAILY 06/05/23 [History Last Taken Unknown] gabapentin 300 mg capsule 300 mg PO QHS PRN pain, mild 06/05/23 [History Last Taken Unknown] lorazepam 1 mg tablet (Ativan) 1 mg PO DAILY PRN anxiety #1 TAB 06/12/23 [Rx Last Taken Unknown] fluticasone propionate 50 mcg/actuation nasal spray,suspension (Flonase Allergy Relief) 2 spray intranasal DAILY #16 grams 06/17/23 [Rx Last Taken Unknown] triamcinolone acetonide 55 mcg nasal spray aerosol (Nasacort Allergy) 2 spray intranasal DAILY #16.9 mL 06/17/23 [Rx Last Taken Unknown] pantoprazole 40 mg tablet,delayed release (Protonix) 40 mg PO BID #60 tabs 07/16/23 [Rx Last Taken Unknown] azithromycin 250 mg tablet 250 mg PO QDAY #12 tabs 08/17/23 [Rx Last Taken Unknown] fluconazole 200 mg tablet 200 mg PO DAILY #2 tabs 08/24/23 [Rx Last Taken Unknown] dicyclomine 10 mg capsule 10 mg PO TID PRN abdominal cramping #30 caps 09/03/23 [Rx Last Taken Unknown] ondansetron 4 mg disintegrating tablet 4 mg PO Q8H PRN PRN Nausea #14 tabs 09/03/23 [Rx Last Taken Unknown] prednisone 20 mg tablet 20 mg PO DAILY #7 tabs 09/03/23 [Rx Last Taken Unknown] budesonide 3 mg capsule,delayed,extended release 6 mg (2 x 3 mg) PO DAILY #60 ea 09/25/23 [Rx Last Taken Unknown] cetirizine 10 mg tablet 10 mg PO DAILY 11/15/23 [History Last Taken Unknown] cholecalciferol (vitamin D3) 125 mcg (5,000 unit) tablet 125 mcg PO DAILY 11/15/23 [History Last Taken Unknown] Allergy/AdvReac Type Severity Reaction Status Date / Time morphine Allergy Other Verified 09/18/23 07:26 bacitracin AdvReac Rash Verified 09/18/23 07:26 [From Neosporin ([id number])] metoclopramide [From Reglan] AdvReac Other Verified 09/18/23 07:26 metronidazole [From Flagyl] AdvReac Nausea Verified 09/18/23 07:26 neomycin AdvReac Rash Verified 12/22/23 07:26 [From Neosporin ([id number])] polymyxin B AdvReac Rash Verified 09/18/23 07:26 [From Neosporin ([id number])] sucralfate [From Carafate] AdvReac Nausea Verified 09/18/23 07:26 Family History Grandmother Uterine cancer Uncle Lung cancer Grandmother No problems noted. Grandfather Prostate cancer Surgical History H/O LEEP History of cholecystectomy History of hysterectomy History of right salpingo-oophorectomy History of tonsillectomy Hx of foot surgery Social History household members: family current occupational status: employed current occupation: [employer] current occupational exposures/hazards: No pets and animals: No sexually active: Yes Smoking Status: Never smoker alcohol intake: never substance use type: does not use caffeine: Yes seatbelt use: always ROS ROS ED Review of Systems ROS Unobtainable: other Constitutional Constitutional ED: Reports lethargy; Denies chills, fever(s), sweats or weight loss Eyes Eyes: Reports change in vision; Denies blurry vision or diplopia ENT ENT ED: Denies rhinorrhea or sore throat Cardiovascular Cardiovascular: Denies chest pain, orthopnea or racing heartbeat Respiratory/Chest Respiratory/Chest: Denies cough, dyspnea, dyspnea on exertion, orthopnea or sputum Gastrointestinal Gastrointestinal: Denies abdominal pain, diarrhea, nausea or vomiting Genitourinary Genitourinary ED: Denies dysuria, hematuria or urinary frequency Musculoskeletal Musculoskeletal: Denies arthralgias, back pain, myalgias or neck pain Integumentary Denies abscess, Abrasions or rash Neurologic Neurologic: Denies headache(s) or weakness Psychiatric Psychiatric: Denies anxiety, depression or suicidal thoughts Endocrine Endocrinology: Denies polydipsia, polyphagia or polyuria Hematologic/Lymphatic Hematologic/Lymphatic: Denies easy bleeding, easy bruising or lymphadenopathy Allergic/Immunologic Allergic/Immunologic ED: Denies mouth swelling, tongue swelling or urticaria EXAM Physical Exam Const Vital Signs: 11/15/23 09:57 11/15/23 09:57 11/15/23 09:57 Temperature 97.8 F Temperature Source Temporal Pulse Rate 93 92 Respiratory Rate 14 14 Blood Pressure 194/90 H 194/90 H Blood Pressure Mean 124 124 Pulse Ox 99 99 Oxygen Delivery Method Room Air Room Air Room Air 11/15/23 09:57 11/15/23 09:55 11/15/23 10:16 Temperature 97.9 F Temperature Source Temporal Pulse Rate 93 93 85 Respiratory Rate 14 16 16 Blood Pressure 194/90 H 199/102 H 158/79 H Blood Pressure Mean 124 134 105 Pulse Ox 99 99 99 Oxygen Delivery Method Room Air Room Air 11/15/23 10:27 11/15/23 10:30 Temperature Temperature Source Pulse Rate 87 87 Respiratory Rate 14 14 Blood Pressure 144/81 H 155/85 H Blood Pressure Mean 102 108 Pulse Ox 99 99 Oxygen Delivery Method Room Air Room Air Positive well nourished and well developed General Appearance ED: well developed and NAD HEENT Reports TM's clear and moist mucous membranes normocephalic and atraumatic; Negative for trauma or tenderness Tympanic Membrane ED: Yes TM's clear Eyes PERRL and EOMs intact bilaterally General Eye ED: Negative for pale conjunctiva or scleral icterus Neck no lymphadenopathy, supple and no JVD General: Negative for tenderness Chest Wall inspection of chest normal and palpation of chest normal Chest: Negative for tenderness Resp normal respiratory effort and clear to auscultation bilaterally Effort and Inspection: Negative for respiratory distress or pain with movement Auscultation: Negative for rhonchi, wheezes or diminished lung sounds Cardio regular rate, regular rhythm, S1 normal heart sound, S2 normal heart sound and no murmurs Peripheral Pulses: pulses 2+ throughout GI normal to inspection, nondistended, normoactive bowel sounds, soft to palpation, non-tender, non-distended and no masses Back/Spine no CVA tenderness and no thoracic nor lumbar tenderness Extremity normal to inspection General Extremety ED: Negative for edema General Extremity: Negative for edema Neuro oriented x3, CN's II-XII intact bilaterally, no sensory deficits noted and gait normal Neuro Narrative: NIH stroke scale currently 0. Finger-nose and heel garcia testing within normal limits, negative Romberg, negative , Fundi benign. Sensorium / Orientation: awake, alert, oriented to person, oriented to place and oriented to time Motor Exam: strength 5/5 throughout and strength abnormal Psych mental status grossly normal Skin no rashes or lesions noted and no wounds MDM MDM MDM Narrative Medical decision making narrative: Stroke team called as concern for stroke or TIA. Discussed case with stroke neurologist who did not be men given that patient's symptoms resolved. There was concern for TIA. Patient not a thrombolytic candidate as symptoms currently resolved. Her blood pressure did normalize without any treatment. Patient symptoms currently completely resolved. CT of the brain and CTA of head and neck were unremarkable. Chemistries unremarkable. EKG obtained showed a sinus rhythm with rate of 71 bpm. Will discuss with hospitalist to evaluate patient for admission for completion of stroke workup. Lab Data Attestation: I reviewed the patient's lab results. Labs: Laboratory Results - last 24 hr 11/15/23 10:13 WBC 6.8 RBC 4.54 Hgb 12.6 Hct 41.0 MCV 90.3 MCH 27.8 MCHC 30.7 L RDW Std Deviation 48.2 H RDW Coeff of Milla 14.5 Plt Count 253 MPV 11.6 Immature Gran % (Auto) 0.100 Neut % (Auto) 56.9 Lymph % (Auto) 32.5 [place] % (Auto) 7.3 Eos % (Auto) 2.5 Baso % (Auto) 0.7 Absolute Neuts (auto) 3.9 Absolute Lymphs (auto) 2.21 Nucleated RBC % 0 PT 12.6 INR 0.9 APTT 30.8 Sodium 140 Potassium 3.6 Chloride 106 Carbon Dioxide 28.0 Anion Gap 6 BUN 14 Creatinine 0.85 Estim Creat Clear Calc 85.17 Est GFR (MDRD) Af Amer 92 Est GFR (MDRD) Non-Af 76 BUN/Creatinine Ratio 16.4 Glucose 92 Calcium 9.5 Troponin I High Sens 4 Radiography Diagnostic Testing: Clinical Impression(s) from Imaging Studies Brain CT 11/15/23 09:57 IMPRESSION: 1. No acute intracranial abnormality. 2. Aspect score 10. Electronically Signed: Shan Lopez MD at 10:23 EST , ADDENDUM: 11/15/23 1032 IMPRESSION: 1. No acute intracranial abnormality. 2. Aspect score 10. N.B. : The above Results were Read Back by Shan Lopez MD to Diana Muñoz, , and understanding confirmed on 11/15/2023 10:25:26 (ET). Electronically Signed: Shan Lopez MD at 10:23 EST , Chest X-Ray 11/15/23 09:57 IMPRESSION: No acute cardiopulmonary abnormality. No interval change. Electronically Signed: Shan Lopez MD at 10:59 EST , Head/Neck CTA 11/15/23 09:58 IMPRESSION: Normal CTA Head and CTA Neck Electronically Signed: Shan Lopez MD at 10:35 EST , ADDENDUM: 11/15/23 1043 IMPRESSION: Normal CTA Head and CTA Neck N.B. : The above Results were Read Back by Shan Lopez MD to Diana Muñoz DO, and understanding confirmed on 11/15/2023 10:37:02 (ET). Electronically Signed: Shan Lopez MD at 10:35 EST , EKG Initial EKG: Attestation: I personally reviewed and interpreted this EKG as follows: Comments: Sinus rhythm with rate of 71 bpm with no acute ST segment changes Discharge Plan Dx/Rx/DC Orders Clinical Impression: Brain TIA, Hx of rheumatoid arthritis, Hypertension Disposition Disposition: Acute Care Hospital [facility]
--- NOTE | 2023-11-15 10:07 | NURSING ---
[id number] STROKE ALERT CALLED
--- OUTSIDE RECORDS SUMMARY | 2023-11-15 10:08 | XMS RPT_ITS | CCD ---
Author Name Unknown Address [address] [facility] [address] [place] [address] Organization [facility] Care Team Providers Care Drink Box Mechanic Name Role Phone MD Lisa, Isai Cristobal Unavailable Whit RICARDO, Zenaida Good Unavailable Unavailable Betzy RICARDO, Joyce Rabago Unavailable [phone] MARTI PA-C, GINO Angelica Primary Care Physician Kidd, Gino Primary Care Provider Kidd, Gino Primary Care Provider KIDD, GINO PA-C Primary Care Unavailable KIDD, GINO PA-C Attending Unavailable KIDD, GINO PA-C Admitting Unavailable KIDD, GINO PA-C Consulting Unavailable PROVIDER, UNKNOWN Consulting Unavailable ELO MAN Admitting Unavailable ELO MAN Primary Care Unavailable ELO MAN Attending Unavailable KIDD, GINO PA-C Consulting Unavailable PROVIDER, UNKNOWN Consulting Unavailable ELO RAMIREZ Attending Unavailable ELO RAMIREZ Primary Care Unavailable ELO RAMIREZ Admitting Unavailable KIDD, GINO PA-C Consulting Unavailable KALI VILLEGAS Referring Unavailable PROVIDER, UNKNOWN Consulting Unavailable KIDD, GINO PA-C Consulting Unavailable AMIGIANNA MEZA Attending Unavailab le AMICONE, GIANNA SANABRIAN-[employer]I [employer] OFFICER Primary Care Unavailab le AMICONE, GIANNA SANDOVAL-[employer]I [employer] OFFICER Admitting Unavailab le PROVIDER, UNKNOWN Consulting Unavailable JASPER GOMEZ Attending Unavailable JASPER GOMEZ Primary Care Unavailable JASPER GOMEZ Admitting Unavailable KIDD, GINO PA-C Consulting Unavailable PROVIDER, UNKNOWN Consulting Unavailable KIDD, GINO PA-C Consulting Unavailable SABIHA BURGOS Attending Unavailable SABIHA BURGOS Primary Care Unavailable SABIHA BURGOS Admitting Unavailable PROVIDER, UNKNOWN Consulting Unavailable KIDD, GINO PA-C Admitting Unavailable KIDD, GINO PA-C Attending Unavailable KIDD, GINO PA-C Consulting Unavailable FLORA CONKLIN Referring Unavailable KIDD, GINO PA-C Primary [...] TOREY, DR SHENG Aguilar Primary Care Unavailable TOREY, DR SHENG Aguilar Admitting Unavailable PROVIDER, UNKNOWN Consulting Unavailable ALEXANDRA WEIR Admitting Unavailable ALEXANDRA WEIR Attending Unavailable ALEXANDRA WEIR Primary Care Unavailable WALDO LOPEZ MD Referring [...] [place] Attending Unavaila ble BENJY, DR EVELINE Naranoj Primary Care Unavaila ble BENJY, DR EVELINE [...] Attending Unavaila ble PROVIDER, UNKNOWN Consulting Unavailable Ruthann PA-C, Choco Naranjo Unavailable Hematology Provider Unavailable Unavailable [place] Unavailable Chiropractic Provider Unavailable Unavailsherri Rheumatolgy Provider Unavailable Unavailable Friend, Dr. Valera Unavailable [phone] [facility] Unavailable Dany RAOMS, Dr. Brandt Unavailable Dr. Maureen Mnoique MD Unavailable Dr. Izzy Yoo DO Unavailable [facility] Unavailable Flakita RAMOS, Dr. Vasquez Unavailable [phone] Xavier RAMOS, Dr. Leiva Unavailable Rosa RICARDO, Gracie Unavailable Unavailable Stella BARAKAT, Michelle Unavailable Kidd PA-C, Gino J Unavailable Joel RAMOS, Torin Soares Unavailable Day YARD JACKER, Pam Unavailable Unavailable Jason YARD JACKER, Aleja E Unavailable Unavailable Airam BAH, Kelly Unavailable Unavailable Gogoi (scribe), Hemanta Unavailable Unavaila ble Kevin YARD JACKER, Annalee Unavailable Unavailable Williams RAMOS, Tanner Good Unavailable Saulo MAHER, Flora Winchester Unavailable Ruthann RICARDO, Mandy Rabago Unavailable Unavail able Akshat YARD JACKER, Joyce Unavailable Unavailable Chip RICARDO, Flora Good Unavailable Unavaila ble Marthey YARD JACKER, Radha Unavailable Unavailable Gerardo YARD JACKER, Cosme Unavailable Unavailable [facility] Brent Unavailable Unavailab edmund Watson RN, Nimco Unavailable Samantha RICARDO, Shira Love Unavailable Unavailable Garcia YARD JACKER, Radha Unavailable Unavailable Mutersbaugh YARD JACKER, Skyla K Unavailable Unavai shannon Christian PA-C, Kathryn J Unavailable Viktor [facility] Alex Unavailable Unavailab le Ribeiro, Gracie L Unavailable Richert YARD JACKER, Jenifer L Unavailable Unavailab le Ange YARD JACKER, Julia M Unavailable Unavailab le Elfers YARD JACKER, Grace Katz Unavailable Unavailab edmund Keating MA, Joyce Unavailable Unavailable Magda RAMOS, Elo Good Unavailable [phone] Vess YARD JACKER, Neilee L Unavailable Unavailable Wengerd YARD JACKER, Karly Unavailable Unavailabl e Steve YARD JACKER, Sabiha N Unavailable Unavaila ble Zaugg YARD JACKER, Mckenna Unavailable Unavailable Unavailable Unavailable Infectious Disease Provider Unavailable Unav ailable Allergies Allergy Classification Reported Allergen(s) Allergy Type Date of Onset Reaction(s) Facility (6 sources) bacitracin / neomycin / polymyxin b; Translations: [bacitracin / neomycin / polymyxin B] Drug Allergy 7 Eruption of skin (disorder) [facility] Work Phone: (5 sources) metroNIDAZOLE; Translations: [Metronidazole] Drug Allergy 7 Vomiting (disorder) [facility] Work Phone: (8 sources) morphine; Translations: [Morphine] Drug Allergy 5 Headache (finding), Vomiting (disorder), Other: See Comments [facility] Work Phone: (4 sources) Sucralfate; Translations: [sucralfate] Drug Allergy 1 Nausea (finding), GI Upset [facility] (2 sources) bacitracin / neomycin / polymyxin b Drug Allergy 5 Rash [facility] Work Phone: (9 sources) metroNIDAZOLE Drug Allergy 0 GI Upset [facility] (1 source) 12/08/17 (+) CDIFF; Translations: [12/08/17 (+) CDIFF] Propensity to adverse reactions (disorder) [facility] (1 source) 10/19/2019 (+) CDIFF AG; Translations: [10/19/2019 (+) CDIFF AG] Propensity to adverse reactions (disorder) [facility] (1 source) 11/03/2019 (-) CDIFF; Translations: [11/03/2019 (-) CDIFF] Propensity to adverse reactions (disorder) [facility] (1 source) 08/10/2020 (+) CDIFF AG; Translations: [08/10/2020 (+) CDIFF AG] Propensity to adverse reactions (disorder) [facility] (1 source) 01/24/21 (+) CDIFF AG; Translations: [01/24/21 (+) CDIFF AG] Propensity to adverse reactions (disorder) [facility] (7 sources) Miconazole Drug Allergy [facility].; [facility] (7 sources) Morphine Drug Allergy [facility] [employer] NEGATED: Highlighted row has been ruled out! (1 source) 3 [facility] [employer] NEGATED: Highlighted row has been ruled out! (1 source) 3 [facility] NEGATED: Highlighted row has been ruled out! (1 source) 3 Risktail.; [facility]. NEGATED: Highlighted row has been ruled out! (1 source) 3 [facility].; [facility]. NEGATED: Highlighted row has been ruled out! (1 source) 3 [facility].; [facility]. NEGATED: Highlighted row has been ruled out! (1 source) 3 [facility].; [facility]. NEGATED: Highlighted row has been ruled out! (1 source) 3 Risktail.; [facility]. Medications Current Medications Medication Drug Class(es) Dates Sig (Normalized) Sig (Original) 0.4 ML cyclosporine 0.5 MG/ML Ophthalmic Suspension [Restasis] (1 source) Start: 07-31-2021 Restasis 0.05% ophthalmic emulsion See Instructions, 0 Refill(s) Start Date: 07/31/21 Status: Ordered acyclovir 400 mg oral tablet (20 sources) Herpesvirus Nucleoside Analog DNA Polymerase Inhibitor, Herpes Simplex Virus Nucleoside Analog DNA Polymerase Inhibitor, Herpes Zoster Virus Nucleoside Analog DNA Polymerase Inhibitor Start: 08-17-2023 Completed/Discontinued Medications Medication Drug Class(es) Dates Sig (Normalized) Sig (Original) acetaminophen 325 mg / oxyCODONE hydrochloride 5 mg oral tablet (7 sources) Opioid Agonist Start: 05-20-2018 End: 05-23-2018 acetaminophen 325 mg / traMADol hydrochloride 37.5 mg oral tablet (7 sources) Opioid Agonist Start: 12-02-2011 End: 07-02-2012 aluminum chloride 200 mg/ml topical solution (7 sources) Start: 10-19-2019 End: 03-25-2021 atorvastatin 40 mg oral tablet (7 sources) HMG-CoA Reductase Inhibitor atropine sulfate 0.025 mg / diphenoxylate hydrochloride 2.5 mg oral tablet (7 sources) Anticholinergic, Cholinergic Muscarinic Antagonist, Antidiarrheal Start: 11-12-2018 End: 02-14-2020 Azithromycin (20 sources) Macrolide Antimicrobial Start: 10-10-2022 End: 12-02-2022 Problems Active Problems Problem Classification Problem Date Documented Da te Episodic/Chronic Abdominal pain (20 sources) Epigastric pain; Translations: [Epigastric pain] Onset: 0 Episodic Allergic reactions (20 sources) Allergic reaction; Translations: [Allergy, unspecified, initial encounter] 01-20-2023 Episodic Anxiety disorders (9 sources) Anxiety; Translations: [Anxiety state] 07-31-2021 Chronic Blindness and vision defects (12 sources) Blurring of visual image; Translations: [Myopia] Onset: 7 08-24-2017 Episodic Cardiac and circulatory congenital anomalies (9 sources) Patent foramen ovale; Translations: [Ostium secundum type atrial septal defect] Onset: 7 08-26-2017 Chronic Conditions associated with dizziness or vertigo (20 sources) Acute labyrinthitis; Translations: [Labyrinthitis, unspecified ear] 02-10-2017 Episodic Coronary atherosclerosis and other heart disease (4 sources) Angina pectoris; Translations: [Chest pain, unspecified] Onset: 7 08-18-2017 Chronic Deficiency and other anemia (20 sources) Anemia; Translations: [Anemia, unspecified] 09-16-2023 Episodic Diseases of mouth; excluding dental (7 sources) Cheilitis; Translations: [Diseases of lips] 09-16-2023 Episodic Disorders of lipid metabolism (20 sources) Hyperlipidemia; Translations: [Hyperlipidemia, unspecified] 09-16-2023 Chronic Esophageal disorders (9 sources) Gastroesophageal reflux disease; Translations: [Gastro-esophageal reflux disease without esophagitis] 08-15-2021 Chronic Genitourinary symptoms and ill-defined conditions (20 sources) Dysuria; Translations: [Dysuria] 12-06-2013 Episodic Headache; including migraine (9 sources) Migraine; Translations: [Migraine, unspecified, without mention of intractable migraine without mention of status migrainosus] 07-31-2021 Chronic Headache; including migraine (20 sources) Headache; Translations: [Headache] 05-20-2018 Episodic Immunizations and screening for infectious disease (20 sources) Requires diphtheria, tetanus and pertussis vaccination; Translations: [Encounter for immunization] 01-11-2019 Episodic Inflammation; infection of eye (except that caused by tuberculosis or sexually transmitteddisease) (20 sources) Allergic conjunctivitis; Translations: [Acute atopic conjunctivitis, unspecified eye] 12-15-2018 Episodic Influenza (20 sources) Influenza; Translations: [Influenza due to unidentified influenza virus with other respiratory manifestations] 12-06-2013 Episodic Intestinal infection (20 sources) Clostridium difficile colitis; Translations: [Enterocolitis due to Clostridium difficile, not specified as recurrent] 02-08-2021 Episodic Joint disorders and dislocations; trauma-related (3 sources) Unspecified dislocation of left patella, initial encounter; Translations: [Unspecified dislocation of left patella, initial encounter] Onset: Episodic Malaise and fatigue (14 sources) Fatigue; Translations: [Other fatigue] 09-16-2023 Episodic Mycoses (20 sources) Candidiasis of mouth; Translations: [Candidal stomatitis] 09-16-2023 Episodic Nausea and vomiting (7 sources) Nausea; Translations: [Nausea] 12-16-2018 Episodic Noninfectious gastroenteritis (18 sources) Colitis; Translations: [Noninfective gastroenteritis and colitis, unspecified] 07-31-2021 Episodic Nonspecific chest pain (14 sources) Chest pain; Translations: [Chest pain, unspecified] 12-15-2018 Episodic Nutritional deficiencies (20 sources) Vitamin D deficiency; Translations: [Vitamin D deficiency, unspecified] 09-16-2023 Chronic Nutritional deficiencies (20 sources) Cobalamin deficiency; Translations: [Deficiency of other specified B group vitamins] 09-16-2023 Episodic Other aftercare (7 sources) Long-term (current) use of other medications 12-06-2013 Episodic Other and unspecified benign neoplasm (2 sources) Polyp of colon; Translations: [Polyp of colon] 11-03-2014 Episodic Other and unspecified benign neoplasm (7 sources) Lipoma (clinical); Translations: [Benign lipomatous neoplasm, unspecified] 12-20-2016 Episodic Other bone disease and musculoskeletal deformities (7 sources) Costal chondritis; Translations: [Chondrocostal junction syndrome [Tietze]] 12-15-2018 Episodic Other circulatory disease (14 sources) History of transient ischemic attack; Translations: [Personal history of transient ischemic attack (TIA), and cerebral infarction without residual deficits] 09-16-2023 Episodic Other connective tissue disease (7 sources) Fibromyalgia; Translations: [Fibromyalgia] 09-16-2023 Episodic Other connective tissue disease (7 sources) Pain in lower limb; Translations: [Pain in leg, unspecified] 11-13-2021 Episodic Other ear and sense organ disorders (14 sources) Pain of ear structure; Translations: [Otalgia, unspecified ear] 12-15-2018 Episodic Other ear and sense organ disorders (14 sources) Excessive cerumen in ear canal ; Translations: [Impacted cerumen, unspecified ear] 12-15-2018 Episodic Other gastrointestinal disorders (2 sources) Irritable bowel syndrome 07-31-2021 Chronic Other gastrointestinal disorders (7 sources) Irritable bowel syndrome with diarrhea; Translations: [Irritable bowel syndrome with diarrhea] 09-16-2023 Chronic Other gastrointestinal disorders (20 sources) Diarrhea; Translations: [Diarrhea, unspecified] Onset: 1 01-24-2011 Episodic Other gastrointestinal disorders (7 sources) Antibiotic-associated diarrhea; Translations: [Toxic gastroenteritis and colitis] 09-16-2023 Episodic Other inflammatory condition of skin (7 sources) Itching ; Translations: [Pruritus, unspecified] 12-15-2018 Episodic Other injuries and conditions due to external causes (7 sources) Injury of ribs; Translations: [Unspecified injury of thorax, initial encounter] 09-16-2023 Episodic Other nervous system disorders (2 sources) Plantar nerve lesion; 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, unspecified lower limb] Onset: 0 05-15-2010 Chronic Other non-traumatic joint disorders (7 sources) Pain in left knee; Translations: [Pain in joint, lower leg] 09-16-2023 Episodic Other skin disorders (14 sources) Loss of hair; Translations: [Nonscarring hair loss, unspecified] 09-16-2023 Episodic Other skin disorders (7 sources) Eruption; Translations: [Rash and other nonspecific skin eruption] 09-16-2023 Episodic Other upper respiratory infections (7 sources) Sinusitis; Translations: [Chronic sinusitis, unspecified] 12-15-2018 Chronic Other upper respiratory infections (20 sources) Acute pharyngitis; Translations: [Acute pharyngitis, unspecified] 11-12-2017 Episodic Pancreatic disorders (not diabetes) (7 sources) Pancreatitis; Translations: [Acute pancreatitis without necrosis or infection, unspecified] 09-16-2023 Episodic Pneumonia (except that caused by tuberculosis or sexually transmitted disease) (7 sources) Pneumonia; Translations: [Pneumonia, unspecified organism] 12-06-2013 Episodic Residual codes; unclassified (20 sources) Body mass index 20-24 - normal; Translations: [Body mass index (BMI) 21.0-21.9, adult] 12-15-2018 Episodic Residual codes; unclassified (7 sources) Family history of neoplasm; Translations: [Family history of other specified conditions] 09-16-2023 Episodic Residual codes; unclassified (7 sources) Viral syndrome; Translations: [Other general symptoms and signs] 09-16-2023 Episodic Rheumatoid arthritis and related disease (7 sources) Inflammatory polyarthropathy; Translations: [Inflammatory polyarthropathy] 09-16-2023 Chronic Spondylosis; intervertebral disc disorders; other back problems (7 sources) Backache; Translations: [Dorsalgia, unspecified] 09-16-2023 Episodic Superficial injury; contusion (7 sources) Contusion of right toe; Translations: [Contusion of right lesser toe(s) without damage to nail, initial encounter] 02-13-2020 Episodic Transient cerebral ischemia (20 sources) Transient cerebral ischemia; Translations: [Cerebral ischemia] 07-31-2021 Chronic Unclassified (20 sources) Echocardiogram abnormal; Translations: [Patient encounter status] Onset: 7 08-26-2017 Episodic Unclassified (2 sources) Hormone therapy 07-31-2021 Unclassified (2 sources) Rheumatic arthritis 07-31-2021 Unclassified (2 sources) CONTACT WITH AND SUSPECTED EXPOSURE TO COVID-19; Translations: [CONTACT WITH AND SUSPECTED EXPOSURE TO COVID-19] Onset: 2 Unclassified (2 sources) Cough, unspecified; Translations: [Cough, unspecified] Onset: 1 Unclassified (7 sources) 01-20-2023 Unclassified (7 sources) 01-20-2023 Unclassified (7 sources) 01-20-2023 Urinary tract infections (14 sources) Urinary tract infection, site not specified; Translations: [Urinary tract infectious disease] 12-06-2013 Episodic Viral infection (20 sources) Herpes labialis; Translations: [Herpesviral vesicular dermatitis] 07-31-2021 Episodic Past or Other Problems Problem Classification Problem Date Documented Da te Episodic/Chronic Hemorrhoids (2 sources) Internal hemorrhoids; Translations: [Other [...] and opacity] Onset: 10-18-2016 10-18-2016 Episodic Other inflammatory condition of skin (2 [...] Sneezing; Translations: [Sneezing] Onset: 07-25-2021 Episodic Unclassified (1 source) CONTACT WITH AND SUSPECTED EXPOSURE TO COVID-19; Translations: [CONTACT WITH AND SUSPECTED EXPOSURE TO COVID-19] Onset: 10-03-2021 Unclassified (1 source) Cough, unspecified; Translations: [Cough, unspecified] Onset: 07-25-2021 Results Test Name Value Interpretation Reference Range Facil ity Vital Signs Date Time Vital Sign Value Performing Clinician Kashif ackerman 09-16-2023 15:16-0500 Body weight 73.48 kg Cosme Carrillo LPN [facility], [facility], [facility]. 09-16-2023 15:16-0500 Diastolic blood pressure 70 mm[Hg] Cosme Carrillo LPN [facility], [facility].; [facility], [facility]. 09-16-2023 15:16-0500 Heart rate 87 /min Cosme Carrillo LPN [facility], [facility].; [facility], [facility]. 09-16-2023 15:16-0500 Systolic blood pressure 115 mm[Hg] Cosme Carrillo LPN [facility], [facility].; [facility] 09-03-2023 13:37-0500 Body temperature 96.5 [degF] Cosme Carrillo LPN [facility], [facility].; [facility], [facility]. 09-03-2023 13:37-0500 Body weight 72.58 kg Cosme Carrillo LPN [facility], [facility].; [facility], [facility]. 09-03-2023 13:37-0500 Inhaled oxygen concentration 20 % Cosme Carrillo YARD JACKER [facility], [facility].; [facility], [facility]. 09-03-2023 13:37-0500 SaO2% (BldA) [Mass fraction] 96 % Cosme Carrillo YARD JACKER [facility], [facility].; [facility], [facility]. 08-26-2023 15:10-0500 Body temperature 97.7 [degF] Cosme Carrillo LPN [facility], [facility].; [facility], [facility]. 08-26-2023 15:10-0500 Body weight 72.58 kg Cosme Carrillo LPN [facility], [facility].; [facility], [facility]. 08-26-2023 15:10-0500 Diastolic blood pressure 80 mm[Hg] Cosme Carrillo LPN [facility], [facility].; [facility], [facility]. 08-26-2023 15:10-0500 Heart rate 78 /min Cosme Carrillo LPN [facility], [facility].; [facility], [facility]. 08-26-2023 15:10-0500 Inhaled oxygen concentration 20 % Cosme Carrillo YARD JACKER [facility], [facility].; [facility], [facility]. 08-26-2023 15:10-0500 SaO2% (BldA) [Mass fraction] 97 % Cosmesourav Carrillo LPN [facility], [facility].; [facility], [facility]. 08-26-2023 15:10-0500 Systolic blood pressure 120 mm[Hg] Cosme Carrillo ROSHNI [facility], [facility]. 03-16-2023 15:06-0400 Body temperature 96.1 [degF] Cosmesourav Carrillo ROSHNI [facility], [facility].; [facility], [facility]. 03-16-2023 15:06-0400 Body weight 68.04 kg Cosme Gerardo YARD JACKER [facility], [facility]. 03-16-2023 15:06-0400 Diastolic blood pressure 83 mm[Hg] Cosme Gerardojuanito BARAKAT [facility], [facility].; [facility], [facility]. 03-16-2023 15:06-0400 Heart rate 73 /min Cosme Gerardo YARD JACKER [facility], [facility].; [facility], [facility]. 03-16-2023 15:06-0400 Systolic blood pressure 131 mm[Hg] Cosme Morajuanito BARAKAT [facility], [facility]. 01-20-2023 09:15-0400 Body height 168.91 cm Joyce Keating MA [facility], [facility].; [facility], [facility]. 01-20-2023 09:15-0400 Body mass index (BMI) [Ratio] 22.42 kg/m2 Joyce Keating MA [facility], [facility].; [facility], [facility]. 01-20-2023 09:15-0400 Body surface area Derived from formula 1.73 m2 Joyce Keating MA [facility], [facility].; [facility], [facility]. 01-20-2023 09:15-0400 Body weight 63.96 kg Joyce Keating MA [facility], [facility].; [facility], [facility]. 01-20-2023 09:15-0400 Diastolic blood pressure 76 mm[Hg] Joyce Keating MA [facility], [facility].; [facility], [facility]. 01-20-2023 09:15-0400 Heart rate 59 /min Joyce Keating MA [facility], [facility].; [facility], [facility]. 01-20-2023 09:15-0400 Systolic blood pressure 121 mm[Hg] Joyce Keating MA [facility], [facility].; [facility]. 12-16-2022 13:17-0400 Body height 168.91 cm Joyce Keating MA [facility], [facility].; [facility]. 12-16-2022 13:17-0400 Body mass index (BMI) [Ratio] 21.94 kg/m2 Joyce Keating MA [facility], [facility].; [facility], [facility]. 12-16-2022 13:17-0400 Body surface area Derived from formula 1.72 m2 Joyce Keating [facility].; [facility]. 12-16-2022 13:17-0400 Body weight 62.6 kg Joyce Keating [facility].; [facility], [facility]. 12-16-2022 13:17-0400 Diastolic blood pressure 80 mm[Hg] Joyce Keating [facility].; [facility]. 12-16-2022 13:17-0400 Heart rate 71 /min Joyce Keating MA [facility].; [employer] [facility]. 12-16-2022 13:17-0400 Systolic blood pressure 121 mm[Hg] Joyce Keating MA [facility].; [employer] [facility], [facility]. 10-10-2022 13:28-0500 Body height 168.91 cm Flora Saunders RN [facility].; [employer], [facility]. 10-10-2022 13:28-0500 Body mass index (BMI) [Ratio] 21.94 kg/m2 Flora Saunders RN [place] [employer] [facility].; Esc[employer] [facility]. 10-10-2022 13:28-0500 Body surface area Derived from formula 1.72 m2 Flora Saunders RN [place] [facility] [facility].; [employer], [employer]. 10-10-2022 13:28-0500 Body temperature 98.5 [degF] Flora Saunders RN [place] [employer] [facility].; [employer], [employer]. 10-10-2022 13:28-0500 Body weight 62.6 kg Flora Saunders RN [place] [facility].; [employer], [facility]. 10-10-2022 13:28-0500 Diastolic blood pressure 81 mm[Hg] Flora Saunders RN [facility].; [facility]. 10-10-2022 13:28-0500 Heart rate 72 /min Flora Saundesr RN [facility].; [place] [employer]. 10-10-2022 13:28-0500 Inhaled oxygen concentration 20 % Flora Saunders RN [facility].; [place] [employer], [employer]. 10-10-2022 13:28-0500 SaO2% (BldA) [Mass fraction] 95 % Flora Saunders RN [facility].; [place] [employer] [facility]. 10-10-2022 13:28-0500 Systolic blood pressure 120 mm[Hg] Flora Saunders RN [facility].; [place] [employer] [facility]. 09-26-2022 13:06-0500 Body height 168.91 cm Kelly Alegria MA [facility].; [place] [employer] [facility]. 09-26-2022 13:06-0500 Body mass index (BMI) [Ratio] 22.1 kg/m2 Klely Alegria MA [facility].; [place] [employer] [facility]. 09-26-2022 13:06-0500 Body surface area Derived from formula 1.72 m2 Kelly Alegria MA [facility].; [place] [employer] [facility]. 09-26-2022 13:06-0500 Body temperature 97.3 [degF] Kelly Alegria MA [facility].; [place] [employer] [facility]. 09-26-2022 13:06-0500 Body weight 63.05 kg Kelly Alegria MA [facility].; [place] [employer] [facility]. 09-26-2022 13:06-0500 Diastolic blood pressure 92 mm[Hg] Kelly Alegria MA [facility].; [place] [employer], [employer]. 09-26-2022 13:06-0500 Heart rate 65 /min [facility].; [employer]. 09-26-2022 13:06-0500 Inhaled oxygen concentration 20 % Kelly Alegria MA [facility], [facility].; [place] [employer] [facility], Inc[facility] 09-26-2022 13:06-0500 SaO2% (BldA) [Mass fraction] 96 % Kelly Alegria MA [facility], [facility].; [employer], Inc. 09-26-2022 13:06-0500 Systolic blood pressure 138 mm[Hg] Kelly Alegria MA [facility].; [employer] [facility], Inc. 07-15-2022 13:01-0400 Body height 168.91 cm Ashwini Clemente YARD JACKER [facility].; [employer], Inc. 07-15-2022 13:01-0400 Body mass index (BMI) [Ratio] 21.94 kg/m2 Grace Cornejo YARD JACKER [facility].; [employer]rGreen[employer] [facility], [employer]. 07-15-2022 13:01-0400 Body surface area Derived from formula 1.72 m2 Grace Cornejo LPN [facility], [facility].; [employer], [employer]. 07-15-2022 13:01-0400 Body weight 62.6 kg Grace Cornejo LPN [facility].; [employer] [facility], Inc. 07-15-2022 13:01-0400 Diastolic blood pressure 88 mm[Hg] Grace Cornejo LPN [facility].; [employer] [employer] [facility], [employer]. 07-15-2022 13:01-0400 Heart rate 80 /min Ashwinironnie Cornejo LPN [facility], [facility].; [employer], [employer]. 07-15-2022 13:01-0400 Systolic blood pressure 138 mm[Hg] Grace Fuey ROSHNI [facility].; [employer], Inc. 06-23-2022 14:16-0400 Body height 168.91 cm Flora Saunders RN [place] [facility] [facility], [employer].; [employer], [employer]. 06-23-2022 14:16-0400 Body mass index (BMI) [Ratio] 22.42 kg/m2 Flora Saunders RN [facility].; EscobarGreenph[employer] [facility]. 06-23-2022 14:16-0400 Body surface area Derived from formula 1.73 m2 Flora Saunders RN [facility], [facility].; [employer], [facility]. 06-23-2022 14:16-0400 Body temperature 99 [degF] Flora Saunders RN [facility], [facility].; [employer] [facility]. 06-23-2022 14:16-0400 Body weight 63.96 kg Flora Saunders RN [facility].; EscobarGreenphire [facility]. 06-23-2022 14:16-0400 Diastolic blood pressure 85 mm[Hg] Flora Saunders RN [facility].; [employer] [facility]. 06-23-2022 14:16-0400 Heart rate 67 /min Flora Saunders RN [facility].; [employer] [facility]. 06-23-2022 14:16-0400 Systolic blood pressure 145 mm[Hg] Flora Saunders RN [place] [employer] [facility].; EscobarGreenphire [facility]. 06-03-2022 14:16-0400 Body height 168.91 cm Joyce Oden LPN [place] [employer] [facility].; [employer] [facility]. 06-03-2022 14:16-0400 Body mass index (BMI) [Ratio] 22.73 kg/m2 Joyce Oden LPN [place] [employer] [facility].; Escobar[employer] [facility]. 06-03-2022 14:16-0400 Body surface area Derived from formula 1.74 m2 Joyce Oden LPN [place] [employer] [facility].; [employer] [facility]. 06-03-2022 14:16-0400 Body weight 64.86 kg Joyce Oden LPN [place] [facility] [facility], [facility].; [employer] [facility]. 06-03-2022 14:16-0400 Diastolic blood pressure 78 mm[Hg] Joyce Oden LPN [place] [facility] [facility].; [employer] [facility]. 06-03-2022 14:16-0400 Heart rate 74 /min Joyce Oden LPN [facility].; EscobarGreenphire [facility]. 06-03-2022 14:16-0400 Systolic blood pressure 130 mm[Hg] Joyce Oden LPN [facility].; [place] [employer] [facility]. 04-14-2022 08:17-0400 Body height 168.91 cm Flora Saunders RN [facility].; [place] [employer] [facility]. 04-14-2022 08:17-0400 Body mass index (BMI) [Ratio] 23.37 kg/m2 Flora Saunders RN [facility].; [place] [employer] [facility]. 04-14-2022 08:17-0400 Body surface area Derived from formula 1.76 m2 Flora Saunders RN [place] [employer] [facility].; [place] [employer] [facility]. 04-14-2022 08:17-0400 Body temperature 98.2 [degF] Flora Saunders RN [place] [employer] [facility].; Escobar[employer] [facility]. 04-14-2022 08:17-0400 Body weight 66.68 kg Flora Saunders RN EscobarGreenphire [facility].; Escobar[employer]c. 04-14-2022 08:17-0400 Diastolic blood pressure 81 mm[Hg] Flora Saunders RN [place] [facility] [facility].; [employer] [facility]. 04-14-2022 08:17-0400 Heart rate 71 /min Flora Saunders RN [place] [employer] [facility].; [employer]obar[employer] [facility]. 04-14-2022 08:17-0400 Inhaled oxygen concentration 20 % Flora Saunders RN EscobarGreenphire [facility].; [employer]. 04-14-2022 08:17-0400 SaO2% (BldA) [Mass fraction] 99 % Flora Saunders RN [place] [employer] [facility].; [employer]. 04-14-2022 08:17-0400 Systolic blood pressure 122 mm[Hg] Flora Saunders RN EscobarGreenphire [facility].; [employer]. 03-04-2022 08:59-0400 Body height 168.91 cm Joyce Oden LPN [facility], [facility].; [facility], [facility]. 03-04-2022 08:59-0400 Body mass index (BMI) [Ratio] 23.85 kg/m2 Joyce Oden LPN [facility].; [employer] [employer] [facility], Inc. 03-04-2022 08:59-0400 Body surface area Derived from formula 1.78 m2 Joyce Oden LPN [facility].; [employer] [employer] [facility], [facility]. 03-04-2022 08:59-0400 Body weight 68.04 kg Joyce Oden LPN [facility], [facility].; [employer] [employer] [facility], [facility]. 03-04-2022 08:59-0400 Diastolic blood pressure 67 mm[Hg] Joyce Oden LPN [facility].; [place] [employer] [facility], [facility]. 03-04-2022 08:59-0400 Heart rate 75 /min Joyce Oden LPN [facility], [facility].; [place] [employer] [facility], [facility]. 03-04-2022 08:59-0400 Systolic blood pressure 99 mm[Hg] Joyce Oden LPN [facility], [facility].; EscobarGreenph[employer] [facility], [facility]. 07-25-2021 09:01-0400 Body height 168.91 cm Radha Flores LPN [facility], [facility].; EscobarGreenph[employer] [facility], [facility]. 07-25-2021 09:01-0400 Body mass index (BMI) [Ratio] 24.96 kg/m2 Radha Flores LPN [place] [employer] [facility], [facility].; [employer], [facility]. 07-25-2021 09:01-0400 Body surface area Derived from formula 1.81 m2 Radha Flores LPN [place] [employer] [facility], [facility].; [employer], [facility]. 07-25-2021 09:01-0400 Body weight 71.22 kg Radha Flores LPN [place] [employer] [facility], [facility].; [employer], [facility]. 07-25-2021 09:01-0400 Diastolic blood pressure 88 mm[Hg] Radha Flores LPN [place] [employer] [facility], [facility].; [employer], [facility]. 07-25-2021 09:01-0400 Heart rate 69 /min Radha Flores LPN [facility], [facility].; [facility]. 07-25-2021 09:01-0400 Systolic blood pressure 122 mm[Hg] Radha Flores LPN [facility], [facility].; [place] [employer] [facility], [facility]. 07-17-2021 08:33-0400 Body height 168.91 cm Radha Flores YARD JACKER [facility], [facility].; [place] [employer] [facility]. 07-17-2021 08:33-0400 Body mass index (BMI) [Ratio] 25.6 kg/m2 Rad[facility], [facility].; [place] [employer] [facility], [facility]. 07-17-2021 08:33-0400 Body surface area Derived from formula 1.83 m2 Radha [place] BARAKAT [facility], [facility].; [place] [employer] [facility]. 07-17-2021 08:33-0400 Body weight 73.03 kg Rdaha Flores LPN [facility].; [employer] [facility]. 07-17-2021 08:33-0400 Diastolic blood pressure 71 mm[Hg] Radha Flores LPN [facility], [facility].; [place] [employer] [facility], [facility]. 07-17-2021 08:33-0400 Heart rate 69 /min Radha Viancahunter BARAKAT [facility].; [place] [employer] [facility]. 07-17-2021 08:33-0400 Systolic blood pressure 103 mm[Hg] Radha Flores LPN [facility].; [employer] [facility]. 06-25-2021 10:29-0400 Body height 168.91 cm Flora Saunders RN [facility].; [place] [employer] [facility]. 06-25-2021 10:29-0400 Body mass index (BMI) [Ratio] 25.28 kg/m2 Flora Saunders RN [facility].; [employer] [facility]. 06-25-2021 10:29-0400 Body surface area Derived from formula 1.82 m2 Flora Saunders RN [facility], [facility].; [facility]. 06-25-2021 10:290400 Body temperature 98.4 [degF] Flora Saunders RN [facility].; [facility]. 06-25-2021 10:29-0400 Body weight 72.12 kg Flora Saunders RN [facility].; [facility]. 06-25-2021 10:29-0400 Diastolic blood pressure 79 mm[Hg] Flora Saunders RN [facility].; [facility]. 06-25-2021 10:29-0400 Heart rate 73 /min Flora Saunders RN [facility], [facility].; [facility], [facility]. 06-25-2021 10:29-0400 Systolic blood pressure 117 mm[Hg] Flora Saunders RN [facility], [facility].; [facility], [facility]. 04-11-2021 08:06-0400 Body height 168.91 cm Joyce Oden LPN [facility], [facility].; [facility], [facility]. 04-11-2021 08:06-0400 Body mass index (BMI) [Ratio] 24.01 kg/m2 Joyce Oden LPN [facility], [facility].; [facility], [facility]. 04-11-2021 08:06-0400 Body surface area Derived from formula 1.78 m2 Joyce Oden LPN [facility], [facility].; [place] [employer] [facility], [facility]. 04-11-2021 08:06-0400 Body temperature 96.4 [degF] Joyce Oden LPN [facility], [facility].; [place] [employer] [facility], [facility]. 04-11-2021 08:06-0400 Body weight 68.49 kg Joyce Oden LPN [facility], [facility].; [facility], [facility]. 04-11-2021 08:06-0400 Diastolic blood pressure 80 mm[Hg] Joyce Oden LPN [facility], [facility].; [facility], [facility]. 04-11-2021 08:06-0400 Heart rate 76 /min Joyce Oden LPN [facility].; [facility]. 04-11-2021 08:06-0400 Inhaled oxygen concentration 20 % Joyce Oden LPN [facility].; [facility]. 04-11-2021 08:06-0400 SaO2% (BldA) [Mass fraction] 97 % Joyce Oden LPN [facility].; [facility]. 04-11-2021 08:06-0400 Systolic blood pressure 108 mm[Hg] Joyce Oden LPN [facility].; [facility]. 03-25-2021 08:05-0400 Body height 168.91 cm Flora Saunders RN [facility].; [facility]. 03-25-2021 08:05-0400 Body mass index (BMI) [Ratio] 23.85 kg/m2 Flora Saunders RN [facility].; [place] [employer] [facility]. 03-25-2021 08:05-0400 Body surface area Derived from formula 1.78 m2 Flora Saunders RN [facility].; [place] [employer] [facility]. 03-25-2021 08:05-0400 Body weight 68.04 kg Flora Saunders RN [facility].; [place] [employer] [facility]. 03-25-2021 08:05-0400 Diastolic blood pressure 82 mm[Hg] Flora Saunders RN [facility].; [place] [employer] [facility]. 03-25-2021 08:05-0400 Heart rate 68 /min Flora Saunders RN [place] [employer] [facility].; [employer] [facility]. 03-25-2021 08:05-0400 Systolic blood pressure 133 mm[Hg] Flora Saunders RN [place] [employer] [facility].; [employer] [facility]. 02-08-2021 14:01-0400 Body height 168.91 cm Joyce Oden LPN [facility].; [place] [employer] [facility]. 02-08-2021 14:01-0400 Body mass index (BMI) [Ratio] 23.69 kg/m2 Joyce Oden LPN [facility], [facility].; [place] [employer] [facility]. 02-08-2021 14:01-0400 Body surface area Derived from formula 1.77 m2 Joyce Oden LPN [facility], [facility].; [employer], [facility]. 02-08-2021 14:01-0400 Body weight 67.59 kg Joyce Oden LPN [facility], [facility].; [employer] [facility]. 02-08-2021 14:01-0400 Diastolic blood pressure 74 mm[Hg] Joyce Oden LPN [facility], [facility].; EscobarGreenph[employer] [facility]. 02-08-2021 14:-0400 Heart rate 60 /min Joyce Oden LPN [facility], [facility].; [employer], [facility]. 02-08-2021 14:01-0400 Systolic blood pressure 118 mm[Hg] Joyce Oden LPN [facility], [facility].; [employer], [facility]. 01-24-2021 08:54-0400 Body height 168.91 cm Flora Saunders RN [place] [employer] [facility].; [employer], [facility]. 01-24-2021 08:54-0400 Body mass index (BMI) [Ratio] 23.37 kg/m2 Flora Saunders RN [place] [employer] [facility], [facility].; [employer], [facility]. 01-24-2021 08:54-0400 Body surface area Derived from formula 1.76 m2 Flora Saunders RN [place] [employer] [facility].; [employer], [facility]. 01-24-2021 08:54-0400 Body temperature 98.4 [degF] Flora Saunders RN [place] [employer] [facility].; [employer], [facility]. 01-24-2021 08:54-0400 Body weight 66.68 kg Flora Saunders RN [place] [employer] [facility].; [employer], [employer]. 01-24-2021 08:54-0400 Diastolic blood pressure 70 mm[Hg] Flora Saunders RN [employer] [facility].; [employer]. 01-24-2021 08:54-0400 Heart rate 68 /min Flora Saunders RN [place] [employer] [facility].; [place] [employer] [facility]. 01-24-2021 08:54-0400 Systolic blood pressure 102 mm[Hg] Flora Saunders RN [place] [employer] [facility].; [employer] [employer] [facility]. 12-19-2020 10:41-0400 Body height 168.91 cm Radha Garcia LPN [facility].; [employer] [employer] [facility]. 12-19-2020 10:41-0400 Body mass index (BMI) [Ratio] 23.21 kg/m2 Radha Garcia LPN [place] [employer] [facility].; [employer] [facility]. 12-19-2020 10:41-0400 Body surface area Derived from formula 1.76 m2 Radha Garcia LPN [place] [facility].; [employer] [facility]. 12-19-2020 10:41-0400 Body weight 66.23 kg Radha Garcia LPN [place] [facility].; [employer] [facility]. 12-19-2020 10:41-0400 Diastolic blood pressure 82 mm[Hg] Radha Garcia LPN [place] [facility].; [employer] [facility]. 12-19-2020 10:41-0400 Heart rate 65 /min Radha Garcia LPN [place] [facility].; [employer] [facility]. 12-19-2020 10:41-0400 Systolic blood pressure 114 mm[Hg] Radha Garcia LPN [place] [facility].; [employer] [facility]. 11-27-2020 15:09-0500 Body height 168.91 cm Flora Saunders RN [place] [facility].; [employer]. 11-27-2020 15:09-0500 Body mass index (BMI) [Ratio] 23.53 kg/m2 Flora Saunders RN [place] [facility].; [employer]. 11-27-2020 15:09-0500 Body surface area Derived from formula 1.77 m2 Flora Saunders RN [place] [facility].; [employer]. 11-27-2020 15:09-0500 Body weight 67.13 kg Flora [facility]unders RN [facility].; [facility]. 11-27-2020 15:09-0500 Diastolic blood pressure 77 mm[Hg] Flora Saunders RN [facility].; [facility]. 11-27-2020 15:09-0500 Heart rate 67 /min Flora Saunders RN [facility].; [facility]. 11-27-2020 15:09-0500 Systolic blood pressure 129 mm[Hg] Flora Saunders RN [facility].; [facility]. 09-25-2020 09:19-0500 Body height 168.91 cm Joyce Oden LPN [facility], [facility].; [facility]. 09-25-2020 09:19-0500 Body mass index (BMI) [Ratio] 22.89 kg/m2 Joyce Oden LPN [facility].; [place] [facility], [facility]. 09-25-2020 09:19-0500 Body surface area Derived from formula 1.75 m2 Joyce Oden LPN [facility], [facility].; [facility], [facility]. 09-25-2020 09:19-0500 Body temperature 98.6 [degF] Joyce Oden LPN [facility], [facility].; [facility], [facility]. 09-25-2020 09:19-0500 Body weight 65.32 kg Joyce Oden LPN [facility], [facility].; [place] [employer] [facility]. 09-25-2020 09:19-0500 Heart rate 66 /min Joyce Oden LPN [facility], [facility].; [facility]. 09-25-2020 09:19-0500 Inhaled oxygen concentration 20 % Joyce Oden LPN [facility], [facility].; [place] [employer], [facility]. 09-25-2020 09:19-0500 SaO2% (BldA) [Mass fraction] 98 % Joyce Oden LPN [facility].; [place] [employer] [facility]. 09-18-2020 09:42-0500 Body height 168.91 cm Joyce Oden LPN [facility], [facility].; [place] [facility]. 09-18-2020 09:42-0500 Body mass index (BMI) [Ratio] 23.21 kg/m2 Joyce Oden LPN [facility], [facility].; [place] [facility] 09-18-2020 09:42-0500 Body surface area Derived from formula 1.76 m2 Joyce Oden LPN [facility], [facility].; [place] [facility], [facility]. 09-18-2020 09:42-0500 Body temperature 99 [degF] Joyce Oden LPN [facility], [facility].; [facility], [facility]. 09-18-2020 09:42-0500 Body weight 66.23 kg Joyce Oden LPN [facility], [facility].; [employer], [employer]. 09-18-2020 09:42-0500 Heart rate 77 /min Joyce Oden LPN [facility], [facility].; [place] [facility], [facility]. 09-18-2020 09:42-0500 Inhaled oxygen concentration 20 % Joyce Oden LPN [facility], [facility].; [place] [facility], [facility]. 09-18-2020 09:42-0500 SaO2% (BldA) [Mass fraction] 98 % Joyce Oden [employer] [facility], [facility].; [employer], [employer]. 08-14-2020 11:15-0500 Body height 168.91 cm Flora Saunders RN [facility], [facility].; [employer], [employer]. 08-14-2020 11:15-0500 Body mass index (BMI) [Ratio] 23.85 kg/m2 Flora Saunders RN [facility].; [employer], [employer]. 08-14-2020 11:15-0500 Body surface area Derived from formula 1.78 m2 Flora Saunders RN [facility].; [employer], [employer]. 08-14-2020 11:15-0500 Body temperature 98.6 [degF] Flora Saunders RN [facility].; [employer]. 08-14-2020 11:15-0500 Body weight 68.04 kg Flora Saunders RN [facility], [facility].; [place] [facility] 08-14-2020 11:15-0500 Diastolic blood pressure 73 mm[Hg] Flora Saunders RN [facility], [facility].; [place] [employer] 08-14-2020 11:15-0500 Heart rate 75 /min Flora Saunders RN [facility], Inc.; [employer] 08-14-2020 11:15-0500 Systolic blood pressure 133 mm[Hg] Flora Saunders RN [facility], [facility].; [place] [facility] [facility] 08-08-2020 08:10-0500 Body height 168.91 cm Joyce Oden LPN [facility], [facility].; [place] [employer], [employer] 08-08-2020 08:10-0500 Body mass index (BMI) [Ratio] 23.05 kg/m2 Joyce Oden LPN [facility], Inc.; [employer], [employer] 08-08-2020 08:10-0500 Body surface area Derived from formula 1.75 m2 Joyce Oden LPN [facility], [facility].; [employer] 08-08-2020 08:10-0500 Body temperature 98.1 [degF] Joyce Oden LPN [facility], [facility].; [employer] 08-08-2020 08:10-0500 Body weight 65.77 kg Joyce Oden LPN [facility], [facility].; [employer], [facility]. 08-08-2020 08:10-0500 Diastolic blood pressure 74 mm[Hg] Joyce Oden LPN [facility], [facility].; [employer] 08-08-2020 08:10-0500 Heart rate 71 /min Joyce Oden LPN [facility], Inc.; [place] [employer], [employer] 08-08-2020 08:10-0500 Systolic blood pressure 128 mm[Hg] Joyce Oden LPN [facility], Inc.; [employer], [employer] 05-11-2020 08:41-0400 Body height 168.91 cm Joyce Oden LPN [facility].; [place] [facility] [facility]. 05-11-2020 08:41-0400 Body mass index (BMI) [Ratio] 22.89 kg/m2 Joyce Oden LPN [facility].; [place] [facility] [facility]. 05-11-2020 08:41-0400 Body surface area Derived from formula 1.75 m2 Joyce Oden LPN [facility].; [place] [employer] [facility]. 05-11-2020 08:41-0400 Body weight 65.32 kg Joyce Oden LPN [facility].; [place] [facility] [facility]. 05-11-2020 08:41-0400 Diastolic blood pressure 78 mm[Hg] Joyce Oden LPN [place] [facility].; [place] [facility] [facility]. 05-11-2020 08:41-0400 Heart rate 65 /min Joyce Oden LPN [place] [facility].; [place] [facility] [facility]. 05-11-2020 08:41-0400 Systolic blood pressure 113 mm[Hg] Joyce Oden LPN [facility].; [employer] [facility]. 05-04-2020 09:06-0400 Body height 168.91 cm Flora Saunders RN [facility].; [employer] [facility]. 05-04-2020 09:06-0400 Body mass index (BMI) [Ratio] 22.89 kg/m2 Flora Saunders RN [place] [facility].; [employer] [facility]. 05-04-2020 09:06-0400 Body surface area Derived from formula 1.75 m2 Flora Saunders RN [place] [facility] [facility].; [employer] [facility]. 05-04-2020 09:06-0400 Body temperature 97.2 [degF] Flora Saunders RN [place] [facility].; [employer] [facility]. 05-04-2020 09:06-0400 Body weight 65.32 kg Flora Saunders RN [place] [facility].; [employer]. 05-04-2020 09:06-0400 Diastolic blood pressure 82 mm[Hg] Flora Saunders RN [facility].; [place] [employer] [facility]. 05-04-2020 09:06-0400 Heart rate 66 /min Flora Saunders RN [facility].; [facility]. 05-04-2020 09:06-0400 Systolic blood pressure 117 mm[Hg] Flora Saunders RN [facility].; [facility]. 02-13-2020 14:24-0400 Body height 168.91 cm Shira Singh RN [facility].; [facility]. 02-13-2020 14:24-0400 Body mass index (BMI) [Ratio] 23.69 kg/m2 Shira Singh RN [facility].; [facility]. 02-13-2020 14:24-0400 Body surface area Derived from formula 1.77 m2 Shira Singh RN [facility].; [place] [facility] [facility]. 02-13-2020 14:24-0400 Body weight 67.59 kg Shira Singh RN [facility].; [place] [employer] [facility]. 02-13-2020 14:24-0400 Diastolic blood pressure 121 mm[Hg] Shira Singh RN [facility].; [place] [facility] [facility]. 02-13-2020 14:24-0400 Heart rate 73 /min Shira Singh RN [facility].; [place] [employer] [facility]. 02-13-2020 14:24-0400 Systolic blood pressure 153 mm[Hg] Shira Singh RN [place] [facility] [facility].; [place] [employer] [facility]. 01-26-2020 08:32-0400 Body height 168.91 cm Flora Saunders RN [facility].; [place] [employer] [facility]. 01-26-2020 08:32-0400 Body mass index (BMI) [Ratio] 23.53 kg/m2 Flora Saunders RN [place] [facility] [facility].; [employer]. 01-26-2020 08:32-0400 Body surface area Derived from formula 1.77 m2 Flora Saunders RN [facility], [facility].; [employer] [facility]. 01-26-2020 08:32-0400 Body temperature 98.2 [degF] Flora Saunders RN [facility].; [place] [facility] [facility], [facility]. 01-26-2020 08:32-0400 Body weight 67.13 kg Flora Saunders RN [facility].; [employer] [facility]. 10-21-2019 14:44-0500 Body height 168.91 cm Julia Cassidy LPN [facility].; [employer]. 10-21-2019 14:44-0500 Body mass index (BMI) [Ratio] 23.53 kg/m2 Julia Cassidy LPN [place] [facility] [facility], [facility].; [employer]. 10-21-2019 14:44-0500 Body surface area Derived from formula 1.77 m2 Julia Cassidy LPN [place] [facility] [facility] Inc.; [employer] [facility]. 10-21-2019 14:44-0500 Body weight 67.13 kg Julia Cassidy LPN [place] [facility] [facility].; [employer]. 10-21-2019 14:44-0500 Diastolic blood pressure 73 mm[Hg] Julia Cassidy LPN [place] [facility] Inc.; [employer], [employer]. 10-21-2019 14:44-0500 Heart rate 77 /min Julia Cassidy LPN [place] [facility] Inc.; [employer]. 10-21-2019 14:44-0500 Systolic blood pressure 112 mm[Hg] Julia Cassidy LPN [place] [facility] [facility].; [employer] [facility]. 10-13-2019 16:02-0500 Body height 168.91 cm Joyce Oden LPN [place] [facility] [facility].; [employer]. 10-13-2019 16:02-0500 Body mass index (BMI) [Ratio] 23.05 kg/m2 Joyce Oden LPN [place] [facility] [facility] Inc.; [employer]. 10-13-2019 16:02-0500 Body surface area Derived from formula 1.75 m2 Joyce Oden LPN [facility], Inc.; [employer] 10-13-2019 16:02-0500 Body temperature 98.5 [degF] Joyce Oden LPN [facility], [facility].; [employer], [employer] 10-13-2019 16:02-0500 Body weight 65.77 kg Joyce Oden LPN [facility], Inc.; [employer], [employer] 10-13-2019 16:02-0500 Diastolic blood pressure 110 mm[Hg] Joyce Oden LPN [facility], Inc.; [employer], [employer] 10-13-2019 16:02-0500 Heart rate 71 /min Joyce Oden LPN [facility], Inc.; [employer], [employer] 10-13-2019 16:02-0500 Systolic blood pressure 142 mm[Hg] Joyce Oden LPN [facility], Inc.; [place] [facility] [facility] 09-26-2019 10:40-0500 Body height 168.91 cm Joyce Oden LPN [facility], [facility].; [employer], [employer] 09-26-2019 10:40-0500 Body mass index (BMI) [Ratio] 22.89 kg/m2 Joyce Oden [employer] [facility], Inc.; [employer], [employer] 09-26-2019 10:40-0500 Body surface area Derived from formula 1.75 m2 Joyce Oden LPN [facility], Inc.; [place] [employer] [facility] 09-26-2019 10:40-0500 Body weight 65.32 kg Joyce Oden LPN [facility], [facility].; [employer], [employer]. 09-26-2019 10:40-0500 Diastolic blood pressure 86 mm[Hg] Joyce Oden LPN [facility], Inc.; [employer], [employer] 09-26-2019 10:40-0500 Heart rate 76 /min Joyce Oden LPN [place] [facility] [facility].; [employer], [employer]. 09-26-2019 10:40-0500 Systolic blood pressure 129 mm[Hg] Joyce Oden LPN [facility], Inc.; [employer], [employer] 08-13-2019 10:23-0500 Body height 168.91 cm Joyce Oden LPN [employer], [employer].; [employer], [employer] 08-13-2019 10:23-0500 Body mass index (BMI) [Ratio] 23.05 kg/m2 Joyce Oden LPN [employer], [employer].; [employer], [employer] 08-13-2019 10:23-0500 Body surface area Derived from formula 1.75 m2 Joyce Oden LPN [employer], [employer].; [employer], [employer] 08-13-2019 10:23-0500 Body weight 65.77 kg Joyce Oden LPN [employer], [employer].; [employer], [employer] 08-13-2019 10:23-0500 Diastolic blood pressure 72 mm[Hg] Joyce Oden LPN [employer], [employer].; [employer], [employer] 08-13-2019 10:23-0500 Heart rate 70 /min Joyce Oden LPN [employer], [employer].; [employer], [employer] 08-13-2019 10:23-0500 Systolic blood pressure 113 mm[Hg] Joyce Oden LPN [employer], [employer].; [employer], [employer] 08-03-2019 16:17-0500 Body height 168.91 cm Pam Day [facility] [employer].; [employer], [employer] 08-03-2019 16:17-0500 Body mass index (BMI) [Ratio] 23.21 kg/m2 Pam Day [employer], [employer].; [employer], [employer] 08-03-2019 16:17-0500 Body surface area Derived from formula 1.76 m2 Pam Day [facility] [employer], [employer].; [employer], [employer] 08-03-2019 16:17-0500 Body weight 66.23 kg Pam Day [facility] [employer], [employer].; [employer], [employer] 08-03-2019 16:17-0500 Diastolic blood pressure 85 mm[Hg] Pam Day [facility] [employer], [employer].; [employer], [employer] 08-03-2019 16:17-0500 Heart rate 70 /min Pam Day [facility] [employer], [employer].; [employer], [employer] 08-03-2019 16:17-0500 Systolic blood pressure 137 mm[Hg] Pam Downey [employer].; [employer], [employer] 05-02-2019 11:51-0400 Body height 168.91 cm Grace Cornejo [employer].; [employer], [employer] 05-02-2019 11:51-0400 Body mass index (BMI) [Ratio] 22.42 kg/m2 Grace Cornejo [facility] [employer], [employer].; [employer], [employer] 05-02-2019 11:51-0400 Body surface area Derived from formula 1.73 m2 Grace Cornejo [employer].; [employer], [employer] 05-02-2019 11:51-0400 Body weight 63.96 kg Grace Cornejo [employer].; [employer], [employer] 05-02-2019 11:51-0400 Diastolic blood pressure 79 mm[Hg] Grace Cornejo [employer].; [employer], [employer] 05-02-2019 11:51-0400 Heart rate 71 /min Grace Cornejo [employer].; [employer], [employer]. 05-02-2019 11:51-0400 Systolic blood pressure 127 mm[Hg] Grace Cornejo [employer].; [employer], [employer] 12-16-2018 10:44-0400 Body height 168.91 cm Flora Saunders RN [employer], [employer].; [employer], [employer] 12-16-2018 10:44-0400 Body mass index (BMI) [Ratio] 24.32 kg/m2 Flora Saunders RN [employer], [employer].; [employer], [employer] 12-16-2018 10:44-0400 Body surface area Derived from formula 1.79 m2 Flora Saunders RN [employer], [employer].; [employer], [employer] 12-16-2018 10:44-0400 Body weight 69.4 kg Flora Saunders RN [employer], [employer].; [employer]. 12-16-2018 10:44-0400 Diastolic blood pressure 72 mm[Hg] Flora Saunders RN [employer], [employer].; [employer]. 12-16-2018 10:44-0400 Heart rate 76 /min Flora Saunders RN [employer], [employer].; [employer]. 12-16-2018 10:44-0400 Systolic blood pressure 106 mm[Hg] Flora Saunders RN [employer], [employer].; [employer]. 10-19-2018 11:18-0500 Body height 168.91 cm Skyla K Mutersbaugh [employer], [employer].; [employer]. 10-19-2018 11:18-0500 Body mass index (BMI) [Ratio] 24.01 kg/m2 Skyla K Mutersbaugh [employer], [employer].; [employer], [employer]. 10-19-2018 11:18-0500 Body surface area Derived from formula 1.78 m2 Skyla K Mutersbaugh [employer], [employer].; [employer]. 10-19-2018 11:18-0500 Body temperature 98.8 [degF] Skyla K Mutersbaugh [employer], [employer].; [employer]. 10-19-2018 11:18-0500 Body weight 68.49 kg Skyla K Mutersbaugh [employer], [employer].; [employer]. 10-19-2018 11:18-0500 Diastolic blood pressure 78 mm[Hg] Skyla K Mutersbaugh [employer].; [employer]. 10-19-2018 11:18-0500 Heart rate 77 /min Skyla K Mutersbaugh [employer], [employer].; [employer]. 10-19-2018 11:18-0500 Systolic blood pressure 126 mm[Hg] Skyla K Mutersbaugh [employer].; [employer]. 09-13-2018 13:52-0500 Body height 168.91 cm Grace Cornejo [facility], Inc.; [employer], [employer]. 09-13-2018 13:52-0500 Body mass index (BMI) [Ratio] 24.48 kg/m2 Grace Cornejo [facility] [employer] [facility], Inc.; [employer], [employer]. 09-13-2018 13:52-0500 Body surface area Derived from formula 1.8 m2 Grace [facility]jo [facility], [facility].; [employer], [employer]. 09-13-2018 13:52-0500 Body temperature 98 [degF] Grace Cor[facility]jo [facility].; [employer], Inc. 09-13-2018 13:52-0500 Body weight 69.85 kg Grace Cornejo [facility].; [employer], [employer]. 09-13-2018 13:52-0500 Diastolic blood pressure 74 mm[Hg] Grace Cornejo [facility].; [employer], [employer]. 09-13-2018 13:52-0500 Heart rate 73 /min AshwiniGianna Cornejo [facility], [facility].; [employer], [employer]. 09-13-2018 13:52-0500 Systolic blood pressure 130 mm[Hg] Grace Corenjo [facility].; [employer], [employer]. 08-31-2018 13:58-0500 Body height 168.91 cm Flora Saunders RN [place] [employer], [employer].; [employer]. 08-31-2018 13:58-0500 Body mass index (BMI) [Ratio] 24.01 kg/m2 Flora Saunders RN [employer], [employer].; [employer], [employer]. 08-31-2018 13:58-0500 Body surface area Derived from formula 1.78 m2 Flora Saunders RN [employer], [employer].; [employer]. 08-31-2018 13:58-0500 Body temperature 98.8 [degF] Flora Saunders RN [facility], Inc.; [employer], Inc. 08-31-2018 13:58-0500 Body weight 68.49 kg Flora Saunders RN [facility], Inc.; [employer], [employer] 08-31-2018 13:58-0500 Diastolic blood pressure 69 mm[Hg] Flora Saunders RN [facility], Inc.; [employer], Inc. 08-31-2018 13:58-0500 Heart rate 80 /min Flora Saunders RN [facility], Inc.; [employer], [employer]. 08-31-2018 13:58-0500 Systolic blood pressure 106 mm[Hg] Flora Saunders RN [place] [facility], Inc.; [employer], Inc. 08-30-2018 12:57-0500 Body height 168.91 cm Grace Cornejo LPN [facility], Inc.; [employer], [employer]. 08-30-2018 12:57-0500 Body mass index (BMI) [Ratio] 24.01 kg/m2 Grace Cronejo LPN [facility], Inc.; [employer], Inc. 08-30-2018 12:57-0500 Body surface area Derived from formula 1.78 m2 Grace Cornejo LPN [facility], Inc.; [employer], Inc. 08-30-2018 12:57-0500 Body temperature 97.7 [degF] Grace Cornejo LPN [facility], Inc.; [employer], Inc. 08-30-2018 12:57-0500 Body weight 68.49 kg Grace Cornejo LPN [facility], Inc.; [employer], Inc. 08-30-2018 12:57-0500 Diastolic blood pressure 84 mm[Hg] Grace Cornejo LPN [facility], Inc.; [employer], Inc. 08-30-2018 12:57-0500 Heart rate 67 /min Grace Cornejo LPN [facility], Inc.; [employer], Inc. 08-30-2018 12:57-0500 Systolic blood pressure 126 mm[Hg] Grace Cornejo LPN [facility], Inc.; [employer], Inc. 08-23-2018 10:36-0500 Body height 168.91 cm Grace Cornejo LPN [facility], Inc.; [employer], [employer]. 08-23-2018 10:36-0500 Body mass index (BMI) [Ratio] 24.32 kg/m2 Grace Cornejo YARD JACKER [place] [facility], Inc.; [employer], Inc. 08-23-2018 10:36-0500 Body surface area Derived from formula 1.79 m2 Grace Cornejo YARD JACKER [facility], Inc.; [employer], [employer]. 08-23-2018 10:36-0500 Body weight 69.4 kg Grace Cornejo LPN [place] [facility], Inc.; [employer], [employer]. 08-23-2018 10:36-0500 Diastolic blood pressure 72 mm[Hg] Grace Cornejo YARD JACKER [facility], Inc.; [employer], [employer]. 08-23-2018 10:36-0500 Heart rate 79 /min [facility]jo [facility], Inc.; [employer], [employer]. 08-23-2018 10:36-0500 Systolic blood pressure 111 mm[Hg] Grace Cornejo [facility], Inc.; [employer], Inc. 07-01-2018 09:34-0400 Body height 168.91 cm Flora Saunders RN [place] [facility], Inc.; [employer]. 07-01-2018 09:34-0400 Body mass index (BMI) [Ratio] 24.32 kg/m2 Flora Saunders RN [place] [facility], [employer].; [employer], [employer]. 07-01-2018 09:34-0400 Body surface area Derived from formula 1.79 m2 Flora Saunders RN [place] [facility], [employer].; [employer], [employer]. 07-01-2018 09:34-0400 Body temperature 98.4 [degF] Flora Saunders RN [place] [facility], [employer].; [employer]. 07-01-2018 09:34-0400 Body weight 69.4 kg Flora Saunders RN [place] [facility], Inc.; [employer]. 07-01-2018 09:34-0400 Diastolic blood pressure 76 mm[Hg] Flora Saunders RN [place] [facility], Inc.; [employer] 07-01-2018 09:34-0400 Heart rate 68 /min Flora Saunders RN [place] [facility], Inc.; [employer]. 07-01-2018 09:34-0400 Inhaled oxygen concentration 20 % Flora Saunders RN [place] [facility] [employer]. 07-01-2018 09:34-0400 SaO2% (BldA) [Mass fraction] 98 % Flora Saunders RN [place] [facility].; [employer]. 07-01-2018 09:34-0400 Systolic blood pressure 107 mm[Hg] Flora Saunders RN [place] [facility].; [employer]. 05-20-2018 11:48-0400 Body height 168.91 cm Flora Saunders RN [facility].; [employer]. 05-20-2018 11:48-0400 Body mass index (BMI) [Ratio] 24.01 kg/m2 Flora Saunders RN [facility].; [employer]. 05-20-2018 11:48-0400 Body surface area Derived from formula 1.78 m2 Flora Saunders RN [place] [facility].; [employer]. 05-20-2018 11:48-0400 Body temperature 98.5 [degF] Flora Saunders RN [employer]. 05-20-2018 11:48-0400 Body weight 68.49 kg Flora Saunders RN [employer] [employer].; [employer]. 05-20-2018 11:48-0400 Diastolic blood pressure 82 mm[Hg] Flora Saunders RN [employer] [employer].; [employer]. 05-20-2018 11:48-0400 Heart rate 63 /min Flora Saunders RN [place] [facility], Inc.; [employer]. 05-20-2018 11:48-0400 Systolic blood pressure 128 mm[Hg] Flora Saunders RN [place] [facility], Inc.; [employer], Inc. 05-18-2018 09:37-0400 Body height 168.91 cm Annalee Brown LPN [facility], Inc.; [employer] 05-18-2018 09:37-0400 Body mass index (BMI) [Ratio] 23.85 kg/m2 Annalee Brown LPN [employer], Inc.; [employer], Inc. 05-18-2018 09:37-0400 Body surface area Derived from formula 1.78 m2 Annalee Brown LPN [employer], Inc.; [employer], [employer]. 05-18-2018 09:37-0400 Body weight 68.04 kg Annalee Brown LPN [employer], Inc.; [employer], [employer]. 05-18-2018 09:37-0400 Diastolic blood pressure 74 mm[Hg] Annalee Brown LPN [employer], Inc.; [employer]. 05-18-2018 09:37-0400 Heart rate 64 /min Annalee Brown LPN [employer], Inc.; [employer], [employer]. 05-18-2018 09:37-0400 Systolic blood pressure 112 mm[Hg] Annalee Brown LPN [facility], Inc.; [employer], Inc. 02-26-2018 11:37-0400 Body height 168.91 cm Skyla Marily Soria LPN [employer], Inc.; [employer], [employer]. 02-26-2018 11:37-0400 Body mass index (BMI) [Ratio] 22.73 kg/m2 Skyla K Mutersbaugh ROSHNI [employer], Inc.; [employer], Inc. 02-26-2018 11:37-0400 Body surface area Derived from formula 1.74 m2 Skyla K Mutersbaugh ROSHNI [employer], Inc.; [employer], [employer]. 02-26-2018 11:37-0400 Body weight 64.86 kg Skyla K Mutersbaugh YARD JACKER [employer], Inc.; [employer], Inc. 02-26-2018 11:37-0400 Diastolic blood pressure 76 mm[Hg] Skyla K Mutersbaugh YARD JACKER [employer] [employer], [employer].; [employer], Inc. 02-26-2018 11:37-0400 Heart rate 68 /min Skyla K Mutersbaugh YARD JACKER [employer], Inc.; [employer], Inc. 02-26-2018 11:37-0400 Systolic blood pressure 116 mm[Hg] Skyla K Mutersbaugh YARD JACKER [employer], Inc.; [employer], Inc. 02-05-2018 12:49-0400 Body height 168.91 cm Alex Rose) [place] [facility], Inc.; [employer], Inc. 02-05-2018 12:49-0400 Body mass index (BMI) [Ratio] 22.26 kg/m2 Alex Rose) [place] [facility], Inc.; [employer], Inc. 02-05-2018 12:49-0400 Body surface area Derived from formula 1.73 m2 Alex Rose) [facility], Inc.; [employer], Inc. 02-05-2018 12:49-0400 Body weight 63.5 kg Alex Rose) [employer], [employer].; [employer], Inc. 02-05-2018 12:49-0400 Diastolic blood pressure 80 mm[Hg] Alex Rose) [place] [facility], Inc.; [employer], Inc. 02-05-2018 12:49-0400 Heart rate 66 /min Alex Rose) [employer], [employer].; [employer], Inc. 02-05-2018 12:49-0400 Systolic blood pressure 108 mm[Hg] Alex Hoang (Cedrickibe) [facility], [facility].; [employer], Inc. 12-17-2017 13:48-0400 Body height 168.91 cm Skyla Marily Da Silvaersbaugh YARD JACKER [employer], [employer].; [employer]. 12-17-2017 13:48-0400 Body mass index (BMI) [Ratio] 21.62 kg/m2 Skyla K Mutersbaugh [facility] [employer]. 12-17-2017 13:48-0400 Body surface area Derived from formula 1.71 m2 Skyla K Mutersbaugh YARD JACKER [employer], Inc.; [employer]. 12-17-2017 13:48-0400 Body weight 61.69 kg Skyla K Mutersbaugh [facility] [employer], [employer]. 12-17-2017 13:48-0400 Diastolic blood pressure 80 mm[Hg] Skyla K Mutersbaugh [facility].; [employer], [employer]. 12-17-2017 13:48-0400 Heart rate 85 /min Skyla Marily Da Silvaersbaugh [facility].; [employer]. 12-17-2017 13:48-0400 Systolic blood pressure 115 mm[Hg] Skyla K Mutersbaugh [facility] [employer], [employer]. 12-05-2017 08:49-0500 Body height 168.91 cm Annalee Brown LPN [employer], [employer].; [employer], [employer]. 12-05-2017 08:49-0500 Body mass index (BMI) [Ratio] 22.1 kg/m2 Annalee Brown LPN [employer], Inc.; [employer], [employer]. 12-05-2017 08:49-0500 Body surface area Derived from formula 1.72 m2 Annalee Brown LPN [employer], Inc.; [employer], [employer]. 12-05-2017 08:49-0500 Body temperature 97.8 [degF] Annalee Brown LPN [employer], Inc.; [employer]. 12-05-2017 08:49-0500 Body weight 63.05 kg Annalee Brown LPN [employer], Inc.; [employer]. 12-05-2017 08:49-0500 Diastolic blood pressure 66 mm[Hg] Annalee Brown LPN [employer], Inc.; [employer], Inc. 12-05-2017 08:49-0500 Heart rate 66 /min Annalee Brown LPN [facility], Inc.; [employer], Inc. 12-05-2017 08:49-0500 Systolic blood pressure 107 mm[Hg] Annalee Brown LPN [place] [facility], Inc.; [employer], Inc. 11-30-2017 16:34-0500 Body height 168.91 cm Grace Leonguckey [facility], Inc.; [employer], Inc. 11-30-2017 16:34-0500 Body mass index (BMI) [Ratio] 21.94 kg/m2 Grace Cornejo [facility], Inc.; [employer], Inc. 11-30-2017 16:34-0500 Body surface area Derived from formula 1.72 m2 Ashwini Clemente [facility], Inc.; [employer], Inc. 11-30-2017 16:34-0500 Body temperature 96.9 [degF] Ashwini Elfers [facility], Inc.; [employer], Inc. 11-30-2017 16:34-0500 Body weight 62.6 kg Grace Cornejo [facility], Inc.; [employer], Inc. 11-30-2017 16:34-0500 Diastolic blood pressure 84 mm[Hg] Ashwini Elfers [facility], Inc.; [employer], Inc. 11-30-2017 16:34-0500 Heart rate 76 /min Ashwini Elfers YARD JACKER [place] [facility], Inc.; [employer], Inc. 11-30-2017 16:34-0500 Systolic blood pressure 122 mm[Hg] Grace Cornejo [facility] [employer], Inc. 11-12-2017 11:22-0500 Body height 168.91 cm Skyla Soria YARD JACKER [employer], [employer].; [employer], [employer]. 11-12-2017 11:22-0500 Body mass index (BMI) [Ratio] 21.94 kg/m2 Skyla K Mutersbaugh YARD JACKER [facility], Inc.; [employer] 11-12-2017 11:22-0500 Body surface area Derived from formula 1.72 m2 Skyla K Mutersbaugh YARD JACKER [employer], Inc.; [employer], Inc. 11-12-2017 11:22-0500 Body weight 62.6 kg Skyla K Mutersbaugh YARD JACKER [employer], Inc.; [employer]. 11-12-2017 11:22-0500 Diastolic blood pressure 86 mm[Hg] Skyla K Mutersbaugh YARD JACKER [employer], [employer].; [employer], [employer]. 11-12-2017 11:22-0500 Heart rate 112 /min Skyla K Mutersbaugh YARD JACKER [employer], [employer].; [employer], [employer]. 11-12-2017 11:22-0500 Systolic blood pressure 119 mm[Hg] Skyla K Mutersbaugh YARD JACKER [employer], Inc.; [employer], [employer]. 10-19-2017 18:12-0500 Body height 168.91 cm Alex Rose) [facility], Inc.; [employer]. 10-19-2017 18:12-0500 Body mass index (BMI) [Ratio] 22.26 kg/m2 Alex Rose) [facility], Inc.; [employer]. 10-19-2017 18:12-0500 Body surface area Derived from formula 1.73 m2 Alex Rose) [employer], [employer].; [employer]. 10-19-2017 18:12-0500 Body temperature 98.3 [degF] Alex Chiangibjairo) [employer], Inc.; [employer]. 10-19-2017 18:12-0500 Body weight 63.5 kg Alex Rose) [employer], [employer].; [employer]. 10-19-2017 18:12-0500 Diastolic blood pressure 90 mm[Hg] Alex Rose) [employer], [employer].; [employer]. 10-19-2017 18:12-0500 Heart rate 81 /min Alex Hoang (Cedrickibjairo) [place] [facility], Inc.; [employer] 10-19-2017 18:12-0500 Systolic blood pressure 114 mm[Hg] Alex Hoang (Sushant) [place] [facility], Inc.; [employer], Inc. 10-10-2017 09:29-0500 Body height 165.1 cm Flora Saunders RN [employer].; [employer] 10-10-2017 09:29-0500 Body mass index (BMI) [Ratio] 23.13 kg/m2 Flora Saunders RN [employer].; [employer]. 10-10-2017 09:29-0500 Body surface area Derived from formula 1.69 m2 Flora Saunders RN [employer].; [employer]. 10-10-2017 09:29-0500 Body temperature 97.6 [degF] Flora Saunders RN [employer].; [employer]. 10-10-2017 09:29-0500 Body weight 63.05 kg Flora Saunders RN [employer].; [employer]. 10-10-2017 09:29-0500 Diastolic blood pressure 78 mm[Hg] Flora Saunders RN [employer].; [employer]. 10-10-2017 09:29-0500 Heart rate 59 /min Flora Saunders RN [employer].; [employer] 10-10-2017 09:29-0500 Systolic blood pressure 115 mm[Hg] Flora Saunders RN [employer].; [employer]. 08-26-2017 09:19-0500 BMI (Body Mass Index) 22.92 kg/m2 MD Adi Eaton [employer] Work Phone: 08-26-2017 09:19-0500 BP Diastolic 60 mm[Hg] MD Adi Eaton [facility] Work Phone: 08-26-2017 09:19-0500 BP Systolic 92 mm[Hg] MD [facility] Work Phone: 08-26-2017 09:19-0500 Height 167.64 cm MD Adi Eaton [facility] Work Phone: 08-26-2017 09:19-0500 Pulse (Heart Rate) 64 /min MD Adi Eaton [employer] Work Phone: 08-26-2017 09:19-0500 Respiratory Rate 16 /min MD Adi Eaton [employer] Work Phone: 08-26-2017 09:19-0500 Weight 64.41 kg MD Adi Eaton [employer] Work Phone: 08-13-2017 12:08-0500 Body height 165.1 cm Flora Saunders RN [employer].; [employer]. 08-13-2017 12:08-0500 Body mass index (BMI) [Ratio] 23.63 kg/m2 Flora Saunders RN [employer].; [employer]. 08-13-2017 12:08-0500 Body surface area Derived from formula 1.71 m2 Flora Saunedrs RN [employer].; [employer]. 08-13-2017 12:08-0500 Body weight 64.41 kg Flora Saunders RN [employer].; [employer]. 08-13-2017 12:08-0500 Diastolic blood pressure 76 mm[Hg] Flora Saunders RN [employer].; [employer]. 08-13-2017 12:08-0500 Heart rate 71 /min Flora Saunders RN [employer].; [employer]. 08-13-2017 12:08-0500 Systolic blood pressure 111 mm[Hg] Flora Saunders RN [employer].; [employer]. 05-19-2017 11:45-0400 Body height 165.1 cm Skyla K Mutersbaugh YARD JACKER [facility], [facility].; [employer]. 05-19-2017 11:45-0400 Body mass index (BMI) [Ratio] 23.96 kg/m2 Skyla K Mutersbaugh YARD JACKER [employer], [employer].; [employer]. 05-19-2017 11:45-0400 Body surface area Derived from formula 1.72 m2 Skyla K Mutersbaugh YARD JACKER [employer], [facility].; [employer]. 05-19-2017 11:45-0400 Body weight 65.32 kg Skyla K Mutersbaugh YARD JACKER [employer], [employer].; [employer]. 05-19-2017 11:45-0400 Diastolic blood pressure 76 mm[Hg] Skyla K Mutersbaugh YARD JACKER [employer], [employer].; [employer]. 05-19-2017 11:45-0400 Heart rate 67 /min Skyla K Mutersbaugh YARD JACKER [employer] [facility].; [employer]. 05-19-2017 11:45-0400 Systolic blood pressure 106 mm[Hg] Skyla K Mutersbaugh YARD JACKER [employer], [employer].; [employer]. 03-03-2017 14:35-0400 Body height 165.1 cm Skyla K Mutersbaugh YARD JACKER [employer], [facility].; [employer]. 03-03-2017 14:35-0400 Body mass index (BMI) [Ratio] 24.63 kg/m2 Skyla K Mutersbaugh Y[employer] JACKER [employer] [facility].; [employer]. 03-03-2017 14:35-0400 Body surface area Derived from formula 1.74 m2 Skyla K Mutersbaugh YARD JACKER [employer].; [employer]. 03-03-2017 14:350400 Body weight 67.13 kg Skyla K Mutersbaugh YARD JACKER [employer].; [employer]. 03-03-2017 14:35-0400 Diastolic blood pressure 81 mm[Hg] Skyla K Mutersbaugh YARD JACKER [employer], [employer].; [employer], Inc[employer] 03-03-2017 14:35-0400 Heart rate 67 /min Skyla K Mutersbaugh YARD JACKER [employer], [employer].; [employer], Inc. 03-03-2017 14:35-0400 Systolic blood pressure 119 mm[Hg] Skyla K Mutersbaugh YARD JACKER [employer], [employer].; [employer], Inc[employer] 02-09-2017 10:30-0400 Body height 165.1 cm Skyla K Mutersbaugh YARD JACKER [employer], [employer].; [employer], [employer]. 02-09-2017 10:30-0400 Body mass index (BMI) [Ratio] 24.46 kg/m2 Skyla K Mutersbaugh YARD JACKER [employer], [employer].; [employer], [employer]. 02-09-2017 10:30-0400 Body surface area Derived from formula 1.74 m2 Skyla K Mutersbaugh YARD JACKER [employer], [employer].; [employer], [employer]. 02-09-2017 10:30-0400 Body temperature 98.8 [degF] Skyla K Mutersbaugh YARD JACKER [employer], [employer].; [employer], [employer]. 02-09-2017 10:30-0400 Body weight 66.68 kg Skyla K Mutersbaugh YARD JACKER [employer], [employer].; [employer]. 02-09-2017 10:30-0400 Diastolic blood pressure 73 mm[Hg] Skyla K Mutersbaugh YARD JACKER [employer].; [employer]. 02-09-2017 10:30-0400 Heart rate 63 /min Skyla K Mutersbaugh YARD JACKER [employer].; [employer]. 02-09-2017 10:30-0400 Systolic blood pressure 130 mm[Hg] Skyla K Mutersbaugh YARD JACKER [employer], Inc.; [employer], [employer]. 01-08-2017 15:15-0400 Body height 165.1 cm Flora Saunders RN [employer].; [employer]. 01-08-2017 15:15-0400 Body mass index (BMI) [Ratio] 23.96 kg/m2 Flora Saunders RN [employer].; [employer]. 01-08-2017 15:15-0400 Body surface area Derived from formula 1.72 m2 Flora Saunders RN [employer].; [employer]. 01-08-2017 15:15-0400 Body temperature 98.7 [degF] Flora Saunders RN [employer].; [employer]. 01-08-2017 15:15-0400 Body weight 65.32 kg Flora Saunders RN [employer].; [employer]. 01-08-2017 15:15-0400 Diastolic blood pressure 78 mm[Hg] Flora Saunders RN [employer].; [employer]. 01-08-2017 15:15-0400 Heart rate 74 /min Flora Suanders RN [employer].; [employer]. 01-08-2017 15:15-0400 Systolic blood pressure 114 mm[Hg] Flora Saunders RN [employer].; [employer] 12-20-2016 08:10-0400 Body height 165.1 cm Grace Cornejo LPN [employer].; [employer]. 12-20-2016 08:10-0400 Body mass index (BMI) [Ratio] 23.96 kg/m2 Grace Cornejo LPN [employer].; [employer]. 12-20-2016 08:100400 Body surface area Derived from formula 1.72 m2 Grace Cornejo LPN [employer].; [employer]. 12-20-2016 08:100400 Body weight 65.32 kg Grace Cornejo LPN [employer].; [employer]. 12-20-2016 08:10-0400 Diastolic blood pressure 77 mm[Hg] Grace Cornejo LPN [facility], Inc.; [employer], Inc[employer] 12-20-2016 08:10-0400 Heart rate 66 /min Grace Cornejo ROSHNI [employer], Inc.; [employer], Inc[employer] 12-20-2016 08:10-0400 Systolic blood pressure 114 mm[Hg] Grace Cornejo [facility] [employer], [employer] 12-17-2016 10:36-0400 Body height 165.1 cm Julia Gottlieb Ange [facility].; [employer], Inc[employer] 12-17-2016 10:36-0400 Body mass index (BMI) [Ratio] 23.96 kg/m2 Julia Bull Cassidy [facility].; [employer], Inc[employer] 12-17-2016 10:36-0400 Body surface area Derived from formula 1.72 m2 Julia Cassidy [facility].; [employer], Inc[employer] 12-17-2016 10:36-0400 Body weight 65.32 kg Julia M Ange [facility] [employer], [employer].; [employer], [employer] 12-17-2016 10:36-0400 Diastolic blood pressure 80 mm[Hg] Julia Bull Cassidy YARD JACKER [employer], [employer].; [employer], Inc[employer] 12-17-2016 10:36-0400 Heart rate 70 /min Julia Bull Cassidy YARD JACKER [employer], [employer].; [employer], Inc. 12-17-2016 10:36-0400 Systolic blood pressure 133 mm[Hg] Julia Bull Cassidy YARD JACKER [employer], [employer].; [employer], Inc[employer] 12-02-2016 16:03-0500 Body height 165.1 cm Skyla Soria YARD JACKER [employer], [employer].; [employer], Inc[employer] 12-02-2016 16:03-0500 Body mass index (BMI) [Ratio] 22.8 kg/m2 Skyla Soria YARD JACKER [employer], Inc.; [employer], Inc. 12-02-2016 16:03-0500 Body surface area Derived from formula 1.68 m2 Skylakeila Gillbaugh YARD JACKER [facility], Inc.; [employer], Inc. 12-02-2016 16:03-0500 Body weight 62.14 kg Skyla Soria YARD JACKER [facility], Inc.; [employer], Inc. 12-02-2016 16:03-0500 Diastolic blood pressure 75 mm[Hg] Skyla Marily Gillbaugh YARD JACKER [place] [facility], Inc.; [employer], Inc. 12-02-2016 16:03-0500 Heart rate 69 /min Skyla Marily Gillbaugh [facility], Inc.; [employer], [employer]. 12-02-2016 16:03-0500 Systolic blood pressure 113 mm[Hg] Skyla Gillbaugh YARD JACKER [facility], Inc.; [employer], Inc. 05-24-2015 15:38-0400 Body height 165.1 cm Graec Cornejo [facility], Inc.; [employer], Inc. 05-24-2015 15:38-0400 Body mass index (BMI) [Ratio] 21.63 kg/m2 Grace Cornejo [facility], Inc.; [employer], Inc. 05-24-2015 15:38-0400 Body surface area Derived from formula 1.65 m2 Grace Cornejo YARD JACKER [facility], Inc.; [employer], [employer]. 05-24-2015 15:38-0400 Body temperature 98.4 [degF] Grace Cornejo [facility], Inc.; [employer], [employer]. 05-24-2015 15:38-0400 Body weight 58.97 kg Grace Cornejo [facility], Inc.; [employer], [employer]. 05-24-2015 15:38-0400 Diastolic blood pressure 77 mm[Hg] Grace Cornejo YARD JACKER [facility], Inc.; [employer], [employer]. 05-24-2015 15:38-0400 Heart rate 60 /min Grace Cornejo YARD JACKER [facility], Inc.; [employer]. 05-24-2015 15:38-0400 Systolic blood pressure 119 mm[Hg] Grace Cornejo ROSHNI [employer], [employer].; [employer], Inc[employer] 05-15-2014 16:05-0400 Body height 165.1 cm Sabiha Wilson LPN [employer], [employer].; [employer], Inc[employer] 05-15-2014 16:05-0400 Body mass index (BMI) [Ratio] 21.47 kg/m2 Sabiha Wilson LPN [employer], [employer].; [employer], [employer] 05-15-2014 16:05-0400 Body surface area Derived from formula 1.64 m2 Sabiha Wilson LPN [employer], [employer].; [employer], [employer] 05-15-2014 16:05-0400 Body temperature 98.1 [degF] Sabiha Wilson YARD JACKER [employer], [employer].; [employer], Inc[employer] 05-15-2014 16:05-0400 Body weight 58.51 kg Sabiha Wilson LPN [employer], Inc.; [employer], [employer]. 05-15-2014 16:05-0400 Diastolic blood pressure 73 mm[Hg] Sabiha Wilson LPN [employer], Inc.; [employer], Inc[employer] 05-15-2014 16:05-0400 Heart rate 61 /min Sabiha Wilson YARD JACKER [employer], Inc.; [employer]. 05-15-2014 16:05-0400 Systolic blood pressure 122 mm[Hg] Sabiha Wilson LPN [employer], Inc.; [employer]. 02-16-2014 16:17-0400 Body height 165.1 cm Grace Cornejo YARD JACKER [employer], [employer].; [employer]. 02-16-2014 16:17-0400 Body mass index (BMI) [Ratio] 20.63 kg/m2 Grace Cornejo ROSHNI [employer], Inc.; [employer]. 02-16-2014 16:17-0400 Body surface area Derived from formula 1.61 m2 Grace Cornejo ROSHNI [facility], Inc.; [facility], Inc. 02-16-2014 16:17-0400 Body temperature 98.3 [degF] Grace Cornejo ROSHNI [place] [facility], Inc.; [employer], Inc. 02-16-2014 16:17-0400 Body weight 56.25 kg Grace Cornejo ROSHNI [facility], Inc.; [employer], Inc. 02-16-2014 16:17-0400 Diastolic blood pressure 85 mm[Hg] Grace Cornejo ROSHNI [facility], Inc.; [employer], Inc. 02-16-2014 16:17-0400 Heart rate 60 /min Grace Cornejo ROSHNI [place] [facility], Inc.; [employer], Inc. 02-16-2014 16:17-0400 Systolic blood pressure 124 mm[Hg] Grace Cornejo ROSHNI [place] [facility] [facility], Inc.; [employer] 12-06-2013 13:31-0400 Body height 165.1 cm Karly Ochoa LPN [place] [employer], [employer] 12-06-2013 13:31-0400 Body mass index (BMI) [Ratio] 18.89 kg/m2 Karly Ochoa LPN [employer] [facility], [facility].; [employer], Inc[employer] 12-06-2013 13:31-0400 Body surface area Derived from formula 1.55 m2 Karly Ochoa LPN [employer] [facility], [facility].; [employer], [employer] 12-06-2013 13:31-0400 Body temperature 98.9 [degF] K[facility] L[facility], [facility].; [employer], [employer] 12-06-2013 13:31-0400 Body weight 51.48 kg Karly Ochoa LPN [place] [employer], [employer] 12-06-2013 13:31-0400 Diastolic blood pressure 73 mm[Hg] Karly Ochoa LPN [place] [employer], [employer] 12-06-2013 13:31-0400 Heart rate 70 /min Karly Ochoa LPN [facility], [facility].; [facility], Inc[facility] 12-06-2013 13:31-0400 Inhaled oxygen concentration 20 % Karly Ochoa LPN [facility], Inc.; [facility], Inc[facility] 12-06-2013 13:31-0400 SaO2% (BldA) [Mass fraction] 99 % Karly Ochoa LPN [facility], Inc.; [place] [employer] [facility], Inc[facility] 12-06-2013 13:31-0400 Systolic blood pressure 104 mm[Hg] Karly Ochoa LPN [facility], [facility], [facility]. 12-03-2013 10:54-0500 Body height 165.1 cm Sabiha Wilson LPN [facility], [facility].; [facility] 12-03-2013 10:54-0500 Body mass index (BMI) [Ratio] 18.47 kg/m2 Sabiha Wilson LPN [facility], Inc.; [place] [employer] [facility], Inc[facility] 12-03-2013 10:54-0500 Body surface area Derived from formula 1.54 m2 Sabiha Wilson LPN [facility], Inc.; [place] [employer] [facility], [facility] 12-03-2013 10:54-0500 Body temperature 98 [degF] Sabiha Wilson LPN [facility], [facility].; [place] [employer] [facility], [facility]. 12-03-2013 10:54-0500 Body weight 50.35 kg Sabiha Wilson LPN [facility], [facility].; [place] [employer] 12-03-2013 10:54-0500 Diastolic blood pressure 83 mm[Hg] Sabiha Wilson LPN [facility], Inc.; [place] [employer] [facility], [facility]. 12-03-2013 10:54-0500 Heart rate 87 /min Sabiha Wilson LPN [facility], Inc.; [place] [employer] 12-03-2013 10:54-0500 Inhaled oxygen concentration 20 % Sabiha Wilson LPN [facility], Inc.; [place] [employer]. 12-03-2013 10:54-0500 SaO2% (BldA) [Mass fraction] 99 % Sabiha Wilson LPN [employer] [facility] [employer]. 12-03-2013 10:54-0500 Systolic blood pressure 118 mm[Hg] Sabiha Wilson LPN [employer] [facility] [employer]. 12-01-2013 08:59-0500 Body height 165.1 cm Julia Bull Cassidy YARD JACKER [employer] [facility].; [employer]. 12-01-2013 08:59-0500 Body mass index (BMI) [Ratio] 19.14 kg/m2 Julia Gottlieb Ange [facility].; [employer]. 12-01-2013 08:59-0500 Body surface area Derived from formula 1.56 m2 Julia Bull Cassidy [facility].; [employer]. 12-01-2013 08:59-0500 Body temperature 99.9 [degF] Julia M Ange [facility] [employer]. 12-01-2013 08:59-0500 Body weight 52.16 kg Julia Gottlieb Ange [facility].; [employer]. 12-01-2013 08:59-0500 Diastolic blood pressure 77 mm[Hg] Julia Cassidy [facility].; [employer]. 12-01-2013 08:59-0500 Heart rate 93 /min Julia Cassidy YARD JACKER [employer] [facility].; [employer]. 12-01-2013 08:59-0500 Systolic blood pressure 120 mm[Hg] Julia Bull Cassidy YARD JACKER [employer] [facility].; [employer]. 07-21-2013 13:50-0400 Body weight 54.43 kg Sabiha Wilson LPN [employer]. 06-27-2013 10:07-0400 Body height 165.1 cm Sabiha Wilson YARD JACKER [employer].; [employer] [facility], [facility]. 06-27-2013 10:07-0400 Body mass index (BMI) [Ratio] 19.3 kg/m2 Sabihanahomi Wilson YARD JACKER [facility], Inc.; [employer] [facility], Inc[facility] 06-27-2013 10:07-0400 Body surface area Derived from formula 1.57 m2 Sabiha Crow Wilson [facility], Inc.; [employer], [facility]. 06-27-2013 10:07-0400 Body weight 52.62 kg Sabiha Wilson YARD JACKER [facility], Inc.; [employer], [facility]. 06-27-2013 10:07-0400 Diastolic blood pressure 80 mm[Hg] Sabiha Crow Wilson [facility] [employer] [facility], [facility].; [employer], Inc[employer] 06-27-2013 10:07-0400 Heart rate 77 /min Sabiha Wilson [facility].; [employer], [facility]. 06-27-2013 10:07-0400 Systolic blood pressure 128 mm[Hg] Sabiha Wilson YARD JACKER [employer] [facility], Inc.; [employer], [employer]. 03-09-2013 14:10-0400 Body height 165.1 cm aSbiha Wilson YARD JACKER [employer] [facility], [facility].; [employer], [employer] 03-09-2013 14:10-0400 Body mass index (BMI) [Ratio] 20.14 kg/m2 Sabiha Wilson YARD JACKER [employer] [facility], [facility].; [employer], [employer] 03-09-2013 14:10-0400 Body surface area Derived from formula 1.6 m2 Sabiha Wilson LPN [employer] [facility], [facility].; [employer], [employer]. 03-09-2013 14:10-0400 Body temperature 99.4 [degF] Sabiha Wilson YARD JACKER [employer] [facility], [facility].; [employer], Inc. 03-09-2013 14:10-0400 Body weight 54.89 kg Sabiha Wilson YARD JACKER [employer], Inc.; [employer], [employer]. 03-09-2013 14:10-0400 Diastolic blood pressure 81 mm[Hg] Sabiha Wilson LPN [employer] [facility], [facility].; [employer] 03-09-2013 14:10-0400 Heart rate 79 /min Sabiha Wilson LPN [employer] [facility], [facility].; [employer], [employer] 03-09-2013 14:10-0400 Systolic blood pressure 124 mm[Hg] Sabiha Wilson LPN [employer] [facility], [facility].; [employer], Inc. 02-24-2013 13:14-0400 Body height 165.1 cm Julia Bull Cassidy YARD JACKER [facility], Inc.; [employer], [employer]. 02-24-2013 13:14-0400 Body mass index (BMI) [Ratio] 20.63 kg/m2 Julia Bull Cassidy [facility] [employer] [facility], [facility].; [employer], [employer] 02-24-2013 13:14-0400 Body surface area Derived from formula 1.61 m2 Julia Cassidy LPN [employer] [facility], [facility].; [employer], [employer]. 02-24-2013 13:14-0400 Body weight 56.25 kg Julia M Ange BARAKAT [employer], Inc.; [employer], [employer]. 02-24-2013 13:14-0400 Diastolic blood pressure 63 mm[Hg] Julia Cassidy LPN [employer] [facility], [facility].; [employer], Inc. 02-24-2013 13:14-0400 Heart rate 67 /min Julia Cassidy YARD JACKER [employer] [facility], [facility].; [employer], [employer]. 02-24-2013 13:14-0400 Systolic blood pressure 112 mm[Hg] Julia Bull Cassidy LPN [employer] [facility], [facility].; [employer]. 01-26-2013 15:34-0400 Body weight 55.16 kg Sabiha Wilson LPN [employer] [facility], [facility].; [employer], Inc. 01-03-2013 15:33-0400 Body weight 55.7 kg Sabiha Wilson LPN [employer], [employer].; [employer], [employer]. 12-14-2012 15:45-0400 Body height 152.4 cm Karly Ochoa LPN [employer] [facility], [facility].; [employer], Inc[employer] 12-14-2012 15:45-0400 Body mass index (BMI) [Ratio] 23.53 kg/m2 Karly Ochoa LPN [employer] [facility], [facility].; [employer], Inc[employer] 12-14-2012 15:45-0400 Body surface area Derived from formula 1.51 m2 Karly Ochoa LPN [employer] [facility], [facility].; [employer], Inc. 12-14-2012 15:45-0400 Body weight 54.66 kg Karly Gabriela BARAKAT [place] [employer] [facility], [facility].; [employer], [employer] 12-14-2012 15:45-0400 Diastolic blood pressure 82 mm[Hg] Karly Ochoa LPN [place] [employer] [facility], [facility].; [employer], Inc[employer] 12-14-2012 15:45-0400 Heart rate 79 /min Karly Ochoa LPN [place] [employer] [facility], Inc.; [employer], Inc. 12-14-2012 15:45-0400 Systolic blood pressure 122 mm[Hg] Karly Ochoa LPN [employer] [facility], [facility].; [employer], Inc. 09-16-2012 13:11-0500 Body height 152.4 cm Sabiha Wilson LPN [employer] [facility], [facility].; [employer], Inc. 09-16-2012 13:11-0500 Body mass index (BMI) [Ratio] 25.39 kg/m2 Sabiha Wilson LPN [employer] [facility], [facility].; [employer], [employer] 09-16-2012 13:11-0500 Body surface area Derived from formula 1.55 m2 Sabiha Wilson LPN [employer] [facility], [facility].; [employer], Inc. 09-16-2012 13:11-0500 Body weight 58.97 kg Sabiha Wilson LPN [employer], [employer].; [employer], Inc. 09-16-2012 13:11-0500 Diastolic blood pressure 66 mm[Hg] Sabiha Wilson LPN [employer], [employer].; [employer], Inc. 09-16-2012 13:11-0500 Heart rate 59 /min Sabiha Crow Wilson LPN [employer] [facility], [facility].; [employer], Inc. 09-16-2012 13:11-0500 Systolic blood pressure 102 mm[Hg] Sabiha Wilson LPN [employer] [facility].; [employer], Inc. 08-03-2012 10:47-0500 Body height 167.64 cm Sabiha Wilson YARD JACKER [employer] [facility], [facility].; [employer], Inc. 08-03-2012 10:47-0500 Body mass index (BMI) [Ratio] 21.14 kg/m2 Sabiha Crow Wilson YARD JACKER [employer] [facility], [facility].; [employer], Inc. 08-03-2012 10:47-0500 Body surface area Derived from formula 1.67 m2 Sabiha Wilson YARD JACKER [employer] [facility], Inc.; [employer], [employer]. 08-03-2012 10:47-0500 Body weight 59.42 kg Sabihanahomi Wilson YARD JACKER [employer] [facility], [facility].; [employer], [employer]. 08-03-2012 10:47-0500 Diastolic blood pressure 76 mm[Hg] Sabiha Crow Wilson YARD JACKER [employer] [facility], [facility].; [employer], [employer]. 08-03-2012 10:47-0500 Heart rate 69 /min Sabiha Wilson LPN [employer], [employer].; [employer], [employer]. 08-03-2012 10:47-0500 Systolic blood pressure 125 mm[Hg] Sabiha Wilson LPN [employer] [facility], [facility].; [employer], [employer]. 07-27-2012 11:27-0400 Body height 167.64 cm Sabiha Wilson YARD JACKER [employer], [employer].; [employer], [employer]. 07-27-2012 11:27-0400 Body mass index (BMI) [Ratio] 20.66 kg/m2 Sabiha Crow Wilson LPN [employer], [employer].; [employer], [employer]. 07-27-2012 11:27-0400 Body surface area Derived from formula 1.65 m2 Sabiha Wilson YARD JACKER [employer], [employer].; [employer], Inc. 07-27-2012 11:27-0400 Body temperature 97 [degF] Sabiha Wilson YARD JACKER [facility], Inc.; [employer], Inc. 07-27-2012 11:27-0400 Body weight 58.06 kg Sabiha Wilson LPN [facility], Inc.; [employer], [employer]. 07-27-2012 11:27-0400 Diastolic blood pressure 75 mm[Hg] Sabiha Wilson LPN [facility], Inc.; [employer], [employer]. 07-27-2012 11:27-0400 Heart rate 72 /min Sabiha Wilson LPN [employer] [facility].; [employer], Inc. 07-27-2012 11:27-0400 Systolic blood pressure 114 mm[Hg] Sabiha Wilson LPN [employer] [facility], [facility].; [employer], Inc. 07-02-2012 11:01-0400 Body height 167.64 cm Sabiha Wilson LPN [employer] [facility], [facility].; [employer], Inc. 07-02-2012 11:01-0400 Body mass index (BMI) [Ratio] 21.14 kg/m2 Sabiha Wilson LPN [employer] [facility], [facility].; [employer], Inc. 07-02-2012 11:01-0400 Body surface area Derived from formula 1.67 m2 Sabiha Wilson LPN [employer] [facility], [facility].; [employer], Inc. 07-02-2012 11:01-0400 Body weight 59.42 kg Sabiha Wilson LPN [employer] [facility], [facility].; [employer], [employer]. 07-02-2012 11:01-0400 Diastolic blood pressure 74 mm[Hg] Sabiha Wilson LPN [employer] [facility], [facility].; [employer], Inc. 07-02-2012 11:01-0400 Heart rate 67 /min Sabiha Wilson LPN [employer] [facility], [facility].; [employer], Inc. 07-02-2012 11:01-0400 Systolic blood pressure 120 mm[Hg] Sabiha Wilson LPN [employer] [facility], [facility].; [employer], Inc. 05-18-2012 16:53-0400 Body height 167.64 cm Sabiha Wilson YARD JACKER [employer] [facility], [facility].; [employer], Inc. 05-18-2012 16:53-0400 Body mass index (BMI) [Ratio] 20.82 kg/m2 Sabiha Wilson YARD JACKER [employer] [facility], [facility].; [employer], Inc[employer] 05-18-2012 16:53-0400 Body surface area Derived from formula 1.66 m2 Sabiha Wilson LPN [employer] [facility], [facility].; [employer], Inc. 05-18-2012 16:53-0400 Body temperature 98.8 [degF] Sabiha Wilson YARD JACKER [place] [employer] [facility], Inc.; [employer], Inc. 05-18-2012 16:53-0400 Body weight 58.51 kg Sabiha Wilson YARD JACKER [employer] [facility], Inc.; [employer], Inc. 05-18-2012 16:53-0400 Diastolic blood pressure 76 mm[Hg] Sabiha Wilson LPN [employer] [facility], [facility].; [employer], [employer]. 05-18-2012 16:53-0400 Heart rate 77 /min Sabiha Wilson YARD JACKER [employer] [facility], [facility].; [employer], Inc. 05-18-2012 16:53-0400 Systolic blood pressure 117 mm[Hg] Sabiha Wilson YARD JACKER [employer] [facility], [facility].; [employer], Inc. 04-14-2012 09:43-0400 Body height 167.64 cm Sabiha Wilson YARD JACKER [employer] [facility], [facility].; [employer], [employer]. 04-14-2012 09:43-0400 Body mass index (BMI) [Ratio] 21.14 kg/m2 Sabiha Wilson YARD JACKER [employer] [facility], Inc.; [employer], Inc. 04-14-2012 09:43-0400 Body surface area Derived from formula 1.67 m2 Sabiha Wilson YARD JACKER [employer] [facility], [facility].; [employer], Inc. 04-14-2012 09:43-0400 Body temperature 98.5 [degF] Sabiha Wilson LPN [employer] [facility], [facility].; [employer], Inc. 04-14-2012 09:43-0400 Body weight 59.42 kg Sabiha Wilson LPN [facility], Inc.; [employer], Inc. 04-14-2012 09:43-0400 Diastolic blood pressure 81 mm[Hg] Sabiha Wilson LPN [facility], Inc.; [employer], [employer] 04-14-2012 09:43-0400 Heart rate 58 /min Sabiha Wilson LPN [employer] [facility], [facility].; [employer], Inc. 04-14-2012 09:43-0400 Systolic blood pressure 120 mm[Hg] Sabiha Wilson LPN [place] [employer] [facility], [facility].; [employer], Inc. 02-24-2012 09:46-0400 Body height 167.64 cm Sabiha Wilson LPN [employer] [facility], [facility].; [employer], [employer] 02-24-2012 09:46-0400 Body mass index (BMI) [Ratio] 20.82 kg/m2 Sabiha Wilson LPN [employer] [facility], [facility].; [employer], Inc. 02-24-2012 09:46-0400 Body surface area Derived from formula 1.66 m2 Sabiha Wilson LPN [employer] [facility], [facility].; [employer], Inc. 02-24-2012 09:46-0400 Body weight 58.51 kg Sabiha Wilson LPN [employer] [facility] [employer], [employer] 02-24-2012 09:46-0400 Diastolic blood pressure 87 mm[Hg] Sabiha Wilson LPN [employer], [employer].; [employer], [employer]. 02-24-2012 09:46-0400 Heart rate 75 /min Sabiha Wilson LPN [employer] [facility] [employer], Inc. 02-24-2012 09:46-0400 Systolic blood pressure 133 mm[Hg] Sabiha Wilson LPN [employer], [employer], [employer] 02-17-2012 09:51-0400 Body height 167.64 cm Julia Gottlieb Ange BARAKAT [employer] [facility], Inc.; [employer]. 02-17-2012 09:51-0400 Body mass index (BMI) [Ratio] 20.66 kg/m2 Julia Gottlieb Ange [facility] [employer] [facility], [facility].; [employer]. 02-17-2012 09:51-0400 Body surface area Derived from formula 1.65 m2 Julia Bull Cassidy LPN [employer] [facility], [facility] [employer]. 02-17-2012 09:51-0400 Body temperature 98.7 [degF] Julia Gottlieb Ange [facility].; [employer]. 02-17-2012 09:51-0400 Body weight 58.06 kg Julia Gottlieb Ange BARAKAT [employer] [facility], Inc.; [employer]. 02-17-2012 09:51-0400 Diastolic blood pressure 76 mm[Hg] Julia Gottlieb Ange BARAKAT [employer] [facility], [facility].; [employer]. 02-17-2012 09:51-0400 Heart rate 63 /min Julia Gottlieb Ange YARD JACKER [employer] [facility], [facility].; [employer]. 02-17-2012 09:51-0400 Systolic blood pressure 125 mm[Hg] Julia Gottlieb Ange BARAKAT [employer] [facility], [facility].; [employer], Inc. 12-02-2011 15:41-0500 Body weight 61.69 kg Julia Gottlieb Ange BARAKAT [employer] [facility], [facility].; [employer]. 12-02-2011 15:41-0500 Diastolic blood pressure 66 mm[Hg] Julia Gottlieb Ange BARAKAT [employer]. 12-02-2011 15:41-0500 Heart rate 61 /min Julia Bull Cassidy LPN [employer], [employer], [employer] 12-02-2011 15:41-0500 Systolic blood pressure 104 mm[Hg] Julia Gottlieb Ange BARAKAT [employer], [employer].; [employer]. 10-02-2011 14:44-0500 Body height 167.64 cm Nimco Watson RN Work Phone: [employer].; [employer] 10-02-2011 14:44-0500 Body mass index (BMI) [Ratio] 21.31 kg/m2 Nimco Watson RN Work Phone: [employer], [employer] 10-02-2011 14:44-0500 Body surface area Derived from formula 1.68 m2 Nimco Watson RN Work Phone: [employer], [employer] 10-02-2011 14:44-0500 Body weight 59.88 kg Nimco Watson RN Work Phone: [employer], [employer] 10-02-2011 14:44-0500 Diastolic blood pressure 74 mm[Hg] Nimco Watson RN Work Phone: [employer].; [employer], [employer] 10-02-2011 14:44-0500 Heart rate 65 /min Nimco Watson RN Work Phone: [employer].; [employer], [employer] 10-02-2011 14:44-0500 Systolic blood pressure 117 mm[Hg] Nimco Watson RN Work Phone: [employer]. Encounters Encounter Date Encounter Type Care Provider Facility Start: 10-26-2023 End: 10-26-2023 Choco Jayler PA-C Work Phone: [employer]. Start: 09-29-2023 End: 09-29-2023 Choco Fischeretler PA-C Work Phone: [employer]. Start: 09-16-2023 End: 09-16-2023 Office outpatient visit 15 minutes Choco Beavers PA-C Work Phone: [employer]. Start: 09-14-2023 End: 09-14-2023 Luke Ruthann PA-C Work Phone: [employer]. Start: 09-04-2023 End: 09-04-2023 Luke Ruthann PA-C Work Phone: [employer] Start: 09-03-2023 End: 09-03-2023 Office outpatient visit 15 minutes Luke Ruthann PA-C Work Phone: [employer]. Start: 09-01-2023 End: 09-01-2023 Luke Ruthann PA-C Work Phone: [employer]. Start: 09-01-2023 End: 09-01-2023 Luke Ruthann PA-C Work Phone: [employer]. Start: 08-26-2023 End: 08-26-2023 Office outpatient visit 25 minutes Luke Ruthann PA-C Work Phone: [employer]. Start: 07-24-2023 End: 07-24-2023 Luke Ruthann PA-C Work Phone: [employer]. Start: 05-01-2023 End: 05-01-2023 Luke Ruthann PA-C Work Phone: [employer]. Start: 03-16-2023 End: 03-16-2023 Office outpatient visit 15 minutes Luke Ruthann PA-C Work Phone: [employer]. Start: 02-06-2023 End: 02-06-2023 Luke Ruthann PA-C Work Phone: [employer]. Start: 01-20-2023 End: 01-19-2023 Luke Ruthann PA-C Work Phone: [employer]. Start: 01-20-2023 End: 01-20-2023 Initial preventive medicine new patient 40-64yrs Luke Ruthann PA-C Work Phone: [employer]. Start: 12-23-2022 End: 12-23-2022 Luke Ruthann PA-C Work Phone: [employer]. Start: 12-17-2022 End: 12-17-2022 Luke Ruthann PA-C Work Phone: [employer]. Start: 12-16-2022 End: 12-16-2022 Office outpatient visit 15 minutes Luke Ruthann PA-C Work Phone: [employer]. Start: 10-10-2022 End: 10-10-2022 Office outpatient visit 15 minutes Luke Ruthann PA-C Work Phone: [employer]. Start: 10-03-2022 End: 10-03-2022 Luke Ruthann PA-C Work Phone: [employer]. Start: 10-01-2022 End: 10-01-2022 Luke Ruthann PA-C Work Phone: [employer]. Start: 09-30-2022 End: 09-30-2022 Luke Ruthann PA-C Work Phone: [employer]. Start: 09-26-2022 End: 09-26-2022 Office outpatient visit 15 minutes Luke Ruthann PA-C Work Phone: [employer]. Start: 09-02-2022 End: 09-02-2022 Luke Ruthann PA-C Work Phone: [employer]. Start: 08-27-2022 End: 08-27-2022 Luke Ruthann PA-C Work Phone: [employer]. Start: 07-25-2022 End: 07-25-2022 Luke Ruthann PA-C Work Phone: [employer] Start: 07-24-2022 End: 07-24-2022 Luke Ruthann PA-C Work Phone: [employer] Start: 07-15-2022 End: 07-15-2022 Office outpatient visit 15 minutes Luke Ruthann PA-C Work Phone: [employer] Start: 06-23-2022 End: 06-23-2022 Office outpatient visit 15 minutes Luke Ruthann PA-C Work Phone: [employer] Start: 06-23-2022 End: 06-23-2022 Luke Ruthann PA-C Work Phone: [employer] Start: 06-03-2022 End: 06-03-2022 Office outpatient visit 25 minutes Luke Ruthann PA-C Work Phone: [employer] Start: 05-19-2022 End: 05-19-2022 Luke Ruthann PA-C Work Phone: [employer] Start: 05-10-2022 End: 05-10-2022 ambulatory GINO PA-C [facility] Start: 05-09-2022 End: 05-09-2022 Luke Ruthann PA-C Work Phone: [employer] Start: 05-09-2022 Refill Alexandra Weir MD Work Phone: [facility] [place] Procedures Date Procedure Procedure Detail Performing Clinician Start: 07-24-2023 End: 07-24-2023 Flu immunize order/admin Lufabián Fischeret ler PA-C Work Phone: Start: 05-01-2023 End: 05-01-2023 Vitamin b12 injection Cosme Carrillo LPN Start: 01-20-2023 End: 01-20-2023 Depression screening Torin Maldonado MD Work Phone: Start: 01-20-2023 End: 01-20-2023 Scr dep neg, no plan reqd Torin Maldonado MD Work Phone: Start: 01-17-2023 End: 01-17-2023 Lab findings surveillance Joyce askew OLVIN Start: 01-17-2023 End: 01-17-2023 Joyce Keating OLVIN Start: 01-17-2023 End: 01-17-2023 Joyce Keating MA Start: 09-30-2022 End: 10-01-2022 Chest x-ray Ginopop Kidd PA-C Work Phone: Start: 07-24-2022 End: 07-24-2022 Flu immunize order/admin Ginopop Kidd PA-C Work Phone: Start: 04-30-2022 End: 04-30-2022 Screening colonoscopy Joyce Peaceabdiel BAH Start: 03-04-2022 End: 03-04-2022 Depression screening Ginopop Kidd PA-C Work Phone: Start: 03-04-2022 End: 03-04-2022 Pos clin depres scrn f/u doc Gino Parra geno PA-C Work Phone: Start: 03-04-2022 End: 03-04-2022 Scr dep neg, no plan reqd Gino Dominguez Kidd PA-C Work Phone: Start: 11-26-2021 End: 11-26-2021 Screening mammography Joyce Keating OLVIN Start: 07-17-2021 End: 07-17-2021 Depression screening Ginopop Kidd PA-C Work Phone: Start: 07-17-2021 End: 07-17-2021 Scr dep neg, no plan reqd Ginopop Kidd PA-C Work Phone: Start: 02-08-2021 End: 02-08-2021 Depression screening Tanner Kramer MD Work Phone: Start: 02-08-2021 End: 02-08-2021 Scr dep neg, no plan reqd Tanner Kramer MD Work Phone: Start: 01-29-2021 Adult depression scr eening assessment Alexandra Weir MD Work Phone: Start: 09-26-2020 End: 11-05-2020 Radiologic exam chest 2 views Tanner Kramer MD Work Phone: Start: 06-29-2020 End: 06-29-2020 Flu immunize order/admin Tanner Winchester Work Phone: Start: 11-24-2019 Colonoscopy Alexandra valladares MD Work Phone: Start: 08-15-2019 End: 08-18-2019 Radex foot complete minimum 3 views Mckenna Mathiasmiguel YARD JACKER Start: 12-16-2018 End: 12-16-2018 Depression screening Tanner Kramer MD Work Phone: Start: 12-16-2018 End: 12-16-2018 Scr dep neg, no plan reqd Tanner Kramer MD Work Phone: Start: 05-18-2018 End: 05-18-2018 Ketorolac tromethamine inj Tanner Kramer MD Work Phone: Start: 02-26-2018 End: 02-26-2018 Body mass index documented Tanner Kramer MD Work Phone: Start: 02-05-2018 End: 02-05-2018 Body mass index documented Tanner Kramer MD Work Phone: Start: 02-05-2018 End: 02-05-2018 Most recent diastolic blood pressure 80-89 mm hg Tanner Kramer MD Work Phone: Start: 02-05-2018 End: 02-05-2018 Most recent systolic blood pressure <130 mm hg Tanner Kramer MD Work Phone: Start: 12-17-2017 End: 12-17-2017 Body mass index documented Tanner Kramer MD Work Phone: Start: 11-30-2017 End: 11-30-2017 Body mass index documented Tanner Kramer MD Work Phone: Start: 11-12-2017 End: 11-12-2017 Body mass index documented Tanner Kramer MD Work Phone: Start: 08-18-2017 End: 08-24-2017 Cardiovascular stress test using treadmill Isai Gonzalez MD Start: 08-13-2017 End: 08-21-2017 TTE w or wo fol wcon,Doppler Tanner de la torre MD Work Phone: Start: 08-13-2017 End: 08-13-2017 Body mass index documented Tanner Kramer MD Work Phone: Start: 05-19-2017 End: 05-19-2017 Triamcinolone acet inj NOS Tanner Kramer MD Work Phone: Start: 11-05-2016 Mammography Alexandra valladares MD Work Phone: Start: 12-01-2013 End: 12-01-2013 Ketorolac tromethamine inj Tanner Kramer MD Work Phone: Start: 10-18-2012 End: 10-19-2012 Radex 1 plne body section oth/thn w/urograpy Tanner Kramer MD Work Phone: Start: 09-17-2012 End: 11-03-2012 Ct abdomen w/contrast material Tanner Kramer MD Work Phone: Start: 07-28-2012 End: 07-28-2012 Ketorolac tromethamine inj Tanner Kramer MD Work Phone: Start: 07-27-2012 End: 10-02-2012 Ketorolac tromethamine inj Tanner Kramer MD Work Phone: Start: 06-04-2012 End: 06-04-2012 Radex 1 plne body section oth/thn w/urograpy Tanner Kramer MD Work Phone: Start: 02-24-2012 End: 02-26-2012 Radex facial bones complete minimum 3 views Elo Man MD Work Phone: Start: 12-28-2011 End: 12-28-2011 Cholecystectomy Joyce Keating MA Start: 09-28-[address] JASPER GOMEZ MD Cholecystectomy DR JASPER GOMEZ MD Dilation and curetta ge of uterus DR JASPER GOMEZ MD Plan of Treatment Date Care Activity Detail Author Start: 03-03-2025 DIABETES SCREEN DIABETES SCREEN [facility] Start: 11-24-2024 Colonoscopy COLONOSCOPY [facility] Start: 11-24-2024 COLORECTAL CANCER SCREENING COLORECTAL CANCER SCREENING [facility] Start: 01-20-2024 [facility] Start: 09-29-2023 25 hydroxy includes fractions if performed [facility] Start: 09-29-2023 Lipid panel [facility]; [facility] Start: 08-26-2023 Radiologic exam abdomen 3+ views [facility]; [facility] Start: 05-29-2022 Influenza vaccination INFLUENZA (#1) [facility] Start: 01-29-2022 Adult depression screening assessment DEPRESSION SCREENING [facility] Start: 2021 COLOGUARD (FIT-DNA) COLOGUARD (FIT-DNA) [facility] Start: [address] COLONOGRAPHY [facility] Start: 2021 DIABETES SCREEN DIABETES SCREEN [facility] Start: 2021 FECAL OCCULT BLOOD FECAL OCCULT BLOOD [facility] Start: 2021 LIPID SCREEN LIPID SCREEN [facility] Start: 2021 SIGMOIDOSCOPY SIGMOIDOSCOPY [facility] Start: 06-25-2021 End: 07-08-2021 Ct abdomen & pelvis w/contrast material [facility]; [facility] Start: 05-29-2021 Influenza vaccination INFLUENZA (#1) [facility] Start: 11-05-2017 Mammography MAMMOGRAM [facility] Start: 08-26-2017 End: 08-26-2017 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 Phone: Start: 08-18-2017 End: 08-24-2017 Cardiovascular stress test using treadmill Treadmill stress test (no imaging) [facility] Phone: Start: 1995 SHINGRIX VACCINE (1 of 2) SHINGRIX VACCINE (1 of 2) [facility] Start: 1995 Urine microalbumin profile DTAP,TDAP,TD (1 - Tdap) [facility] Start: 1994 HEPATITIS C SCREENING HEPATITIS C SCREENING [facility] Start: 1994 HIV SCREENING HIV SCREENING [facility] Start: 1988 COVID-19 VACCINE (1) COVID-19 VACCINE (1) [facility] Start: 1982 PNEUMOCOCCAL (1 - PCV) PNEUMOCOCCAL (1 - PCV) [facility] Start: 04-28-1977 COVID-19 VACCINE (#1) COVID-19 VACCINE (#1) [facility] Start: 1976 HEPATITIS B (1 of 3 - 3-dose series) HEPATITIS B (1 of 3 - 3-dose series) [facility], [facility].; [facility], [facility]. Immunizations Immunization Date Immunization Notes Care Provider Guillermo cowan 07-24-2023 influenza, injectabl e, quadrivalent, preservative free Luke Ruthann PA-C Work Phone: [facility], [facility].; [facility] 07-25-2022 Luke Hochstetle r PA-C Work Phone: [facility], [facility].; [facility], [facility]. 07-24-2022 influenza, injectabl e, quadrivalent, contains preservative Luke Ruthann PA-C Work Phone: [facility].; [facility] 06-29-2020 influenza, injectabl e, quadrivalent, contains preservative Luke Ruthann PA-C Work Phone: [facility] 01-11-2019 tetanus toxoid, reduced diphtheria toxoid, and acellular pertussis vaccine, adsorbed Luke Ruthann PA-C Work Phone: [facility].; [facility] 07-25-2016 influenza virus vaccine, unspecified formulation Alexandra Weir MD Work Phone: [facility] 07-21-2013 influenza, seasonal, injectable Luke Ruthann PA-C Work Phone: [facility].; [facility] 08-31-2009 hepatitis B vaccine, adult dosage Luke Ruthann PA-C Work Phone: [facility].; [facility] 05-31-2009 hepatitis B vaccine, adult dosage Luke Ruthann PA-C Work Phone: [facility].; [facility] 04-30-2009 hepatitis B vaccine, adult dosage Luke Ruthann PA-C Work Phone: [facility].; [facility] 04-30-2009 tetanus toxoid, reduced diphtheria toxoid, and acellular pertussis vaccine, adsorbed Luke Ruthann PA-C Work Phone: [facility].; [facility] 05-15-1989 measles, mumps and rubella virus vaccine Luke Ruthann PA-C Work Phone: [facility].; [facility] 12-09-1981 diphtheria, tetanus toxoids and acellular pertussis vaccine, 5 pertussis antigens Luke Ruthann PA-C Work Phone: [facility].; [facility]. 12-09-1981 poliovirus vaccine, inactivated Luke Ruthann PA-C Work Phone: [facility].; [facility] 04-12-1978 diphtheria, tetanus toxoids and acellular pertussis vaccine, 5 pertussis antigens Luke Ruthann PA-C Work Phone: [facility].; [facility] 04-12-1978 measles, mumps and rubella virus vaccine Luke Ruthann PA-C Work Phone: [facility].; [facility] 04-12-1978 poliovirus vaccine, inactivated Luke Ruthann PA-C Work Phone: [facility].; [facility] 02-15-1977 diphtheria, tetanus toxoids and acellular pertussis vaccine, 5 pertussis antigens Luke Ruthann PA-C Work Phone: [facility].; [facility] 02-15-1977 poliovirus vaccine, inactivated Luke Ruthann PA-C Work Phone: [facility].; [facility] 01-10-1977 diphtheria, tetanus toxoids and acellular pertussis vaccine, 5 pertussis antigens Luke Ruthann PA-C Work Phone: [facility].; [facility]. 1976 diphtheria, tetanus toxoids and acellular pertussis vaccine, 5 pertussis antigens Luke Ruthann PA-C Work Phone: [facility].; [facility] 1976 poliovirus vaccine, inactivated Luke Ruthann PA-C Work Phone: [facility].; [facility]. Payers Date Payer Category Payer Unknown [id number] 2003 Medicaid [place] [employer] [employer] [id number] 2003-Present [phone] [address] Medicaid [id number] 2003 Medicaid [place] [id number] 2003-Present [phone] [address] [place] [address] Medicaid [id number] 1976 Unknown [id number] [id number]. 1976 Unknown [id number] 2.16.840.1.929507.3.579.2. 1976 Unknown [id number] 2.16.840.1.393075.3.579.2 1976 Unknown [id number] 2.16.840.1.534667.3.579.2. 1976 Unknown [id number] 2.16.840.1.996867.3.579.2 1976 Unknown [id number] 2.16.840.1.859306.3.579.2. 1976 Unknown [id number] 2.16.840.1.765516.3.579.2 1976 Unknown [id number] 2.16.840.1.092225.3.579.2. 1976 Unknown [id number] 2.16.840.1.512539.3.579.2. 1976 Unknown [id number] 2.16.840.1.961536.3.579.2. 1976 Unknown [id number] 2.16.840.1.674579.3.579.2. 1976 Unknown [id number] 2.16.840.1.118379.3.579.2. 1976 Unknown [id number] 2.16.840.1.915634.3.579.2. 1976 Unknown [id number] 2.16.840.1.847085.3.579.2.651 1976 Unknown [id number] 2.16.840.1.858727.3.579.2.651 1976 Unknown [id number] 2.16.840.1.694251.3.579.2.651 1976 Unknown [id number] 2.16.840.1.089978.3.579.2. 1976 Unknown [id number] 2.16.840.1.912807.3.579.2. 1976 Unknown [id number] 2.16.840.1.389552.3.579.2. 1976 Unknown [id number] 2.16.840.1.723305.3.579.2. 1976 Unknown [id number] 2.16.840.1.391881.3.579.2 Unknown [id number] Social History Date Type Detail Facility Start: 07-31-2021 Never smoked t obacco (finding) [facility] Sex Assigned At Female 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 Never smoker. [facility] Clinical Notes 06-15-2010 to 05-09-2022 Telephone Encounter [...] Pam Navas Ma documented in this encounter [facility] 12-16-2021 Miscellaneous Notes Patient phones requesting refills as follows: Pending Prescriptions Disp Refills FAMOTIDINE 40 MG TABLET 180 tablet 1 Sig: TAKE 1 TABLET BY MOUTH TWICE A DAY VINCENT: Yes Please review and advise. Pam Navas Ma documented in this encounter [facility] 08-01-2021 Evaluation + Plan note Future Scheduled TestsXR Upper GI 08/01/21 [facility] 08-01-2021 Evaluation + Plan note Future Appointments Future Scheduled TestsXR Upper GI 08/01/21 [facility] 07-31-2021 Note HNO ID: [id number] Author: PATRICIO Olvera Service: Nuclear Medicine Author Type: Clinical In Store Representative Type: Progress Notes Filed: 07/31/2021 9:31 AM [...] 07:25 PATIENT DISCHARGED TO: Ambulatory patient, left [place] department area. A Diagnostic radioactive procedure has taken place, with no further precautions necessary other than routine body substance precautions. More information regarding radiation safety can be found using this link: [email or web address] SIGNATURE: PATRICIO Olvera PATIENT NAME: Carol Grissom DATE: July 31, 2021 TIME: 9:08 AM PAGER/CONTACT #: [facility] documented as of this encounter (statuses as of 12/17/2021) [facility]09[facility]2010 History of Past illness Narrative* Problem Noted Date Resolved Date Primary focal hyperhidrosis 06/15/201005/29 Acne Vulgaris: Inflammatory Grade II 06/15/2010 06/15/2010 documented as of this encounter (statuses as of 05/09/2022) [facility] Diagnosis Epigastric abdominal pain Abdominal pain, epigastric documented in this encounter [facility]* Diagnosis Epigastric abdominal pain Abdominal pain, epigastric [facility] No data available for this section [facility] Hospital Discharge instructions No data available for this section [facility] Progress note No data available for this section [facility] Summary Purpose Family History Breast cancer Status:Active Comments:Grandmo ther Hypertension Status:Active Comments:Mother. Grandparents Osteoarthritis Status:Active Comments:Mother. Grandmother Breast cancer Status:Active Comments:Grandmo ther Hypertension Status:Active Comments:Mother. Grandparents Osteoarthritis Status:Active Comments:Mother. Grandmother Breast cancer Status:Active Comments:Grandmo ther Hypertension Status:Active Comments:Mother. Grandparents Osteoarthritis Status:Active Comments:Mother. Grandmother Breast cancer Status:Active Comments:Grandmo ther Hypertension Status:Active Comments:Mother. Grandparents Osteoarthritis Status:Active Comments:Mother. Grandmother Breast cancer Status:Active Comments:Grandmo ther Hypertension Status:Active Comments:Mother. Grandparents Osteoarthritis Status:Active Comments:Mother. Grandmother Breast cancer Status:Active Comments:Grandmo ther Hypertension Status:Active Comments:Mother. Grandparents Osteoarthritis Status:Active Comments:Mother. Grandmother Breast cancer Status:Active Comments:Grandmo ther Hypertension Status:Active Comments:Mother. Grandparents Osteoarthritis Status:Active Comments:Mother. 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 Advance Directive(s) 04/19/2021 10:05 AM Additional Source Comments INFORMATION SOURCE (unrecogn ized section and content) DATE CREATED AUTHOR AUTHOR'S ORGANIZ ATION 08/01/2021 [facility] DATE CREATED AUTHOR AUTHOR'S ORGANIZ ATION 05/26/2022 [facility] DATE CREATED AUTHOR AUTHOR'S ORGANIZ ATION 01/04/2023 [facility] DATE CREATED AUTHOR AUTHOR'S ORGANIZ ATION 03/19/2023 [facility] Source Comments (unrecognize d section and content) In the event this informatio n is protected by the Federal Confidentiality of Alcohol and Drug Abuse Patient Records regulations: The Federal rules restrict any use of the information to criminally investigate or prosecute any alcohol or drug abuse patient.[facility] the event this information is protected by the Federal Confidentiality of Alcohol and Drug Abuse Patient Records regulations: The Federal rules restrict any use of the information to criminally investigate or prosecute any alcohol or drug abuse patient.[facility] Reason for Visit (unrecogniz ed section and content) Care Teams (unrecognized sec tion and content) 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 [employer] [facility]. provides no warranty or guarantee of the accuracy or completeness of information in this document.
[2023-11-15 10:16] LABS: Absolute Lymphocyte Count 2.21 X10^3/uL (0.83-4.51); Absolute Neutrophil Count 3.9 X10^3/uL (2.0-7.7); Basophil# 0.05 X10^3/uL; Basophil% 0.7 % (0-1); Eosinophil# 0.17 X10^3/uL; Eosinophils% 2.5 % (0-5); Hemoglobin 12.6 g/dL (12.0-15.0); Lymphocyte # 2.21 X10^3/ul (0.83-4.51); Lymphocyte % 32.5 % (19-41); Mean Corp Hgb Conc 30.7 g/dL (32-36); Mean Corpuscular Hgb 27.8 pg (27.0-32.0); Mean Corpuscular Volume 90.3 fL (81-99); Mean Platelet Vol. 11.6 fl (6.2-12.0); Monocyte% 7.3 % (0-10); NRBC Flagged by Analyzer 0 % (0-5); Neutrophil # 3.87 X10^3/uL (2.7-7.7); Neutrophil % 56.9 % (47-70); Platelet Count 253 K/mm3 (150-450); RBC Distribution Width CV 14.5 % (11.6-14.6); RBC Distribution Width SD 48.2 fl (35.1-43.9); Red Blood Count 4.54 M/mm3 (4.2-5.4); White Blood Count 6.8 K/mm3 (4.4-11.0)
[2023-11-15 10:25] LABS: International Normalized Ratio 0.9; Prothrombin Time (Protime)PT. 12.6 SECONDS (11.7-14.9)
[2023-11-15 10:26] LABS: Partial Thromboplast Time 30.8 Seconds (24.1-36.2)
[2023-11-15 10:35] LABS: Anion Gap 6 (5-15); BUN 14 mg/dL (7-18); BUN/Creat Ratio 16.4 RATIO (10-20); Calcium,Total 9.5 mg/dL (8.5-10.1); Chloride 106 mmol/L (98-107); Creatinine, Serum 0.85 mg/dL (0.55-1.02); EST Glomerular Filtration Rate 76 mL/min (>60); Est Glom Filt Rate - Afr Amer 92 mL/min (>60); Estimated Creatinine Clearance 85.17 ml/min; Glucose 92 mg/dL (74-106); Potassium 3.6 mmol/L (3.5-5.1); Sodium Level 140 mmol/L (136-145); Troponin-I HS 4 pg/mL (3.0-54.0)
--- NOTE | 2023-11-15 11:02 | NURSING ---
DR MARTA CHAN
--- NOTE | 2023-11-15 11:10 | NURSING ---
PCU OBS MARTA TIA, HYPERTENSION, HX OF RHEUMATOID ARTHRITIS
--- OUTSIDE RECORDS SUMMARY | 2023-11-15 11:18 | XMS RPT_ITS | CCD ---
Author Name Unknown Address [address] [place] [address] Organization [facility] Care Team Providers Care Filing Or Registry Clerk Name Role Phone MD Lisa, Isai Cristobal Unavailable Whit RN, Zenaida Good Unavailable Unavailable Betzy RICARDO, Joyce Rabago Unavailable KIDD PA-C, GINO Angelica Primary Care Physician Kidd, Gino Primary Care Provider [phone] Kidd, Gino Primary Care Provider KIDD, GINO [...] Consulting Unavailable KIDD, GINO PA-C Consulting Unavailable AMICONE GIANNASuellen SANABRIAN-PRODUCTION SPECIALIST Attending Unavailab le AMICONE, GIANNA YARN DRY ROOM WORKER-PRODUCTION SPECIALIST Primary Care Unavailab le AMICONE, GIANNA YARN DRY ROOM WORKER-PRODUCTION SPECIALIST Admitting Unavailab le PROVIDER, UNKNOWN Consulting Unavailable [...] Unavailable KIDD, GINO PA-C Primary Care Unavailable KDID, GINO PA-C Attending Unavailable KIDD, GINO PA-C [...] Unavailable ALEXANDRA KILLIAN Attending Unavailable ALEXANDRA KILLIAN M Primary Care Unavailable WALDO LOPEZ MD Referring Unavailable KIDD, GINO PA-C Consulting Unavailable PROVIDER, UNKNOWN Consulting Unavailable KIDD, GINO PA-C Admitting Unavailable KIDD, GINO PA-C Attending Unavailable KIDD, GINO PA-C Primary Care Unavailable KIDD, GINO PA-C Consulting Unavailable PROVIDER, UNKNOWN Consulting Unavailable BENJY, DR PEDRO Naranjo Primary Care Unavaila ble BENJY, DR PEDRO Naranjo Admitting Unavaila ble KIDD, GINO PA-C Consulting Unavailable BENJY, DR PEDRO Naranjo Attending Unavaila ble PROVIDER, UNKNOWN Consulting Unavailable KIDD, GINO PA-C Consulting Unavailable BENJY, DR PEDRO Naranjo Attending Unavaila ble BENJY, DR PEDRO Naranjo Primary Care Unavaila ble BENJY, DR PEDRO Naranjo Admitting Unavaila ble PROVIDER, UNKNOWN Consulting Unavailable KIDD, GINO PA-C Admitting Unavailable KIDD, GINO PA-C Attending Unavailable KIDD, GINO PA-C Primary Care Unavailable KIDD, GINO PA-C Consulting Unavailable PROVIDER, UNKNOWN Consulting Unavailable BENJY, DR PEDRO Naranjo Attending Unavaila ble BENJY, DR PEDRO Naranjo Primary Care Unavaila ble BENJY, DR PEDRO Naranjo Admitting Unavaila ble KIDD, GINO PA-C Consulting Unavailable PROVIDER, UNKNOWN Consulting Unavailable BENJY, DR PEDRO Naranjo Attending Unavaila ble BENJY, DR PEDRO Naranjo Primary Care Unavaila ble BENJY, DR PEDRO Naranjo Admitting Unavaila ble KIDD, GINO PA-C Consulting Unavailable PROVIDER, UNKNOWN Consulting Unavailable BENJY, DR PEDRO Naranjo Attending Unavaila ble BENJY, DR PEDRO Naranjo Primary Care Unavaila ble BENJY, DR PEDRO Naran[place] Admitting Unavaila ble KIDD, GINO PA-C Consulting Unavailable PROVIDER, UNKNOWN Consulting Unavailable BENJY, DR PEDRO Naranjo Attending Unavaila ble BENJY, DR PEDRO Naranjo Primary Care Unavaila ble BENJY, DR PEDRO Naranjo Admitting Unavaila ble KIDD, GINO PA-C Consulting Unavailable PROVIDER, UNKNOWN Consulting Unavailable BENJY, DR PEDRO Naranjo Primary Care Unavaila ble BENJY, DR PEDRO Naran[place] Admitting Unavaila ble KIDD, GINO PA-C Consulting Unavailable BENJY, DR PEDRO Naranjo Attending Unavaila ble PROVIDER, UNKNOWN Consulting Unavailable Ruthann PA-C, Ariannake E Unavailable Hematology Provider Unavailable Unavailable [place] Unavailable [facility]ropractic Provider [facility] Unavailable Unavailable Friend, Dr. Valera Unavailable [facility] Unavailable Dany RAMOS, Dr. Brandt Unavailable [phone] Dr. Maureen Monique MD Unavailable Dr. Izzy Yoo DO Unavailable [facility] Unavailable Dr. Pedro Boggs MD Unavailable [phone] Xavier RAMOS, Dr. Leiva Unavailable Rosa RICARDO, Gracie Unavailable Unavailable Stella TERRA COTTA ROOFER HELPER, Michelle Unavailable Kidd PA-C, Gino J Unavailable Torin Maldonado MD Unavailable Day TERRA COTTA ROOFER HELPER, Pam Unavailable Unavailable Jason TERRA COTTA ROOFER HELPER, Aleja E Unavailable Unavailable Airam BAH, Kelly Unavailable Unavailable Gogoi (scribe), Hemanta Unavailable Unavaila ble Kevin TERRA COTTA ROOFER HELPER, Annalee Unavailable Unavailable Williams RAMOS, Tanner Good Unavailable Saulo MAHER, Flora Winchester Unavailable [phone] Ruthann RN, Mandy Rabago Unavailable Unavail able Akshat TERRA COTTA ROOFER HELPER, Joyce Unavailable Unavailable Chip RICARDO, Flora Good Unavailable Unavaila ble Marthey TERRA COTTA ROOFER HELPER, Radha Unavailable Unavailable Gerardo TERRA COTTA ROOFER HELPER, Cosme Unavailable Unavailable Fredy (Scribe), Brent Unavailable Unavailab edmund Watson RN, Nimco Unavailable Samantha RICARDO, Shira Love Unavailable Unavailable Garcia TERRA COTTA ROOFER HELPER, Radha Unavailable Unavailable Mutersbaugh TERRA COTTA ROOFER HELPER, Skyla K Unavailable Unavai shannon Christian PA-C, Kathryn J Unavailable [phone] Viktor (Scribe), Alex Unavailable Unavailab le Ribeiro, Gracie L Unavailable Richert TERRA COTTA ROOFER HELPER, Jenifer L Unavailable Unavailab le Ange TERRA COTTA ROOFER HELPER, Julia M Unavailable Unavailab le Clemente TERRA COTTA ROOFER HELPER, Grace Katz Unavailable Unavailab edmund Keating MA, Joyce Unavailable Unavailable Magda RAMOS, Elo Good Unavailable Vess TERRA COTTA ROOFER HELPER, Neilee L Unavailable Unavailable Wengerd TERRA COTTA ROOFER HELPER, Karly Unavailable Unavailabl e Steve TERRA COTTA ROOFER HELPER, Sabiha N Unavailable Unavaila ble Zaugg TERRA COTTA ROOFER HELPER, Mckenna Unavailable Unavailable Unavailable Unavailable Infectious Disease Provider Unavailable Unav ailable Allergies Allergy Classification Reported Allergen(s) Allergy Type Date of Onset Reaction(s) Facility (6 sources) bacitracin / neomycin / polymyxin b; Translations: [bacitracin / neomycin / polymyxin B] Drug Allergy 7 Eruption of skin (disorder) [facility] Work Phone: (5 sources) metroNIDAZOLE; Translations: [Metronidazole] Drug Allergy 7 Vomiting (disorder) [facility] Work Phone: (8 sources) morphine; Translations: [Morphine] Drug Allergy 5 Headache (finding), Vomiting (disorder), Other: See Comments [facility] Work Phone: (4 sources) Sucralfate; Translations: [sucralfate] Drug Allergy 1 Nausea (finding), GI Upset [facility] (2 sources) bacitracin / neomycin / polymyxin b Drug Allergy 5 Rash [facility] Work Phone: (9 sources) metroNIDAZOLE Drug Allergy 0 GI Upset [facility] (1 source) 12/08/17 (+) CDIFF; Translations: [12/08/17 (+) CDIFF] Propensity to adverse reactions (disorder) [facility] (1 source) 10/19/2019 (+) CDIFF AG; Translations: [10/19/2019 (+) CDIFF AG] Propensity to adverse reactions (disorder) [facility] (1 source) 11/03/2019 (-) CDIFF; Translations: [11/03/2019 (-) CDIFF] Propensity to adverse reactions (disorder) [facility] (1 source) 08/10/2020 (+) CDIFF AG; Translations: [08/10/2020 (+) CDIFF AG] Propensity to adverse reactions (disorder) [facility] (1 source) 01/24/21 (+) CDIFF AG; Translations: [01/24/21 (+) CDIFF AG] Propensity to adverse reactions (disorder) [facility] (7 sources) Miconazole Drug Allergy katena.; katena. (7 sources) Morphine Drug Allergy katena.; [employer], [employer]. NEGATED: Highlighted row has been ruled out! (1 source) 3 katena.; [employer], [employer]. NEGATED: Highlighted row has been ruled out! (1 source) 3 [employer].; [employer], [employer]. NEGATED: Highlighted row has been ruled out! (1 source) 3 katena.; katena. NEGATED: Highlighted row has been ruled out! (1 source) 3 katena.; katena. NEGATED: Highlighted row has been ruled out! (1 source) 3 katena.; katena. NEGATED: Highlighted row has been ruled out! (1 source) 3 katena.; katena. NEGATED: Highlighted row has been ruled out! (1 source) 3 katena.; katena. Medications Current Medications Medication Drug Class(es) Dates [...] Vital Sign Value Performing Clinician Faci lity 09-16-2023 15:16-0500 Body weight 73.48 kg Cosme Carrillo LPN [facility], [facility].; [facility], [facility]. 09-16-2023 15:16-0500 Diastolic blood pressure 70 mm[Hg] Cosme Carrillo LPN [facility], [facility].; [facility], [facility]. 09-16-2023 15:16-0500 Heart rate 87 /min Cosme Gerardo TERRA COTTA ROOFER HELPER [facility], [facility].; [facility], [facility]. 09-16-2023 15:16-0500 Systolic blood pressure 115 mm[Hg] Cosme Carrillo LPN [facility], [facility].; [facility], [facility]. 09-03-2023 13:37-0500 Body temperature 96.5 [degF] Cosme Carrillo LPN [facility], [facility]. 09-03-2023 13:37-0500 Body weight 72.58 kg Cosme Carrillo TERRA COTTA ROOFER HELPER [facility], [facility].; [facility], [facility]. 09-03-2023 13:37-0500 Inhaled oxygen concentration 20 % Cosme Carrillo TERRA COTTA ROOFER HELPER [facility], [facility].; [facility], [facility]. 09-03-2023 13:37-0500 SaO2% (BldA) [Mass fraction] 96 % Cosme Carrillo TERRA COTTA ROOFER HELPER [facility], [facility]. 08-26-2023 15:10-0500 Body temperature 97.7 [degF] Cosme Carrillo LPN [facility], [facility].; [facility], [facility]. 08-26-2023 15:10-0500 Body weight 72.58 kg Cosme Carrillo LPN [facility], [facility].; [facility], [facility]. 08-26-2023 15:10-0500 Diastolic blood pressure 80 mm[Hg] Cosme Carrillo LPN [facility], [facility]. 08-26-2023 15:10-0500 Heart rate 78 /min Cosme Carrillo LPN [facility], [facility].; [facility], [facility]. 08-26-2023 15:10-0500 Inhaled oxygen concentration 20 % Cosme Carrillo TERRA COTTA ROOFER HELPER [facility], [facility].; [facility], [facility]. 08-26-2023 15:10-0500 SaO2% (BldA) [Mass fraction] 97 % Cosme Gerardo TERRA COTTA ROOFER HELPER [facility] [employer] 08-26-2023 15:10-0500 Systolic blood pressure 120 mm[Hg] Cosmesourav Carrillo TERRA COTTA ROOFER HELPER [facility], [facility].; [facility], [facility]. 03-16-2023 15:06-0400 Body temperature 96.1 [degF] Cosme Carrillo ROSHNI [facility], [facility].; [facility], [facility]. 03-16-2023 15:06-0400 Body weight 68.04 kg Cosme Gerardojuanito BARAKAT [facility], [facility]. 03-16-2023 15:06-0400 Diastolic blood pressure 83 mm[Hg] Cosme Gerardojuanito BARAKAT [facility], [facility].; [employer] [facility], [facility]. 03-16-2023 15:06-0400 Heart rate 73 /min Cosme Morajuanito BARAKAT [facility], [facility].; [facility], [facility]. 03-16-2023 15:06-0400 Systolic blood pressure 131 mm[Hg] Cosme Gerardojuanito BARAKAT [facility], [facility].; [employer] [facility], [facility]. 01-20-2023 09:15-0400 Body height 168.91 cm Joyce Keating MA [facility], [facility].; [facility], [facility]. 01-20-2023 09:15-0400 Body mass index (BMI) [Ratio] 22.42 kg/m2 Joyce Keating MA [facility], [facility].; [facility], [facility]. 01-20-2023 09:15-0400 Body surface area Derived from formula 1.73 m2 Joyce Keating MA [facility], [facility].; [facility], [facility]. 01-20-2023 09:15-0400 Body weight 63.96 kg Joyce Keating MA [facility], [facility].; [employer] [facility], [facility]. 01-20-2023 09:15-0400 Diastolic blood pressure 76 mm[Hg] Joyce Keating MA [facility], [facility].; [facility], [facility]. 01-20-2023 09:15-0400 Heart rate 59 /min Joyce Keating MA [facility], [facility].; [employer], [facility]. 01-20-2023 09:15-0400 Systolic blood pressure 121 mm[Hg] Joyce Keating MA [facility], [facility].; [employer] [facility], [facility]. 12-16-2022 13:17-0400 Body height 168.91 cm Joyce Keating MA [facility].; [employer] [facility]. 12-16-2022 13:17-0400 Body mass index (BMI) [Ratio] 21.94 kg/m2 Joyce Keating MA [facility].; [employer] [facility], [facility]. 12-16-2022 13:17-0400 Body surface area Derived from formula 1.72 m2 Joyce Keating MA [facility].; [employer] [facility]. 12-16-2022 13:17-0400 Body weight 62.6 kg Joyce Keating MA [facility].; [employer] [facility]. 12-16-2022 13:17-0400 Diastolic blood pressure 80 mm[Hg] Joyce Keating MA [facility].; [employer] [facility]. 12-16-2022 13:17-0400 Heart rate 71 /min Joyce Keating MA [facility].; [employer] [facility]. 12-16-2022 13:17-0400 Systolic blood pressure 121 mm[Hg] Joyce Keating MA [facility].; [employer] [facility]. 10-10-2022 13:28-0500 Body height 168.91 cm Flora Saunders RN [employer] [facility].; [employer]. 10-10-2022 13:28-0500 Body mass index (BMI) [Ratio] 21.94 kg/m2 Flora Saunders RN [employer] [facility].; [employer]. 10-10-2022 13:28-0500 Body surface area Derived from formula 1.72 m2 Flora Saunders RN [employer] [facility].; [employer]. 10-10-2022 13:28-0500 Body temperature 98.5 [degF] Flora Saunders RN [employer] [facility].; [employer]. 10-10-2022 13:28-0500 Body weight 62.6 kg Flora Saunders RN [employer] [facility].; [employer]. 10-10-2022 13:28-0500 Diastolic blood pressure 81 mm[Hg] Flora [facility]unders RN [facility].; [facility] [employer] [facility]. 10-10-2022 13:28-0500 Heart rate 72 /min Flora Saunders RN [facility].; [facility] [employer] [facility]. 10-10-2022 13:28-0500 Inhaled oxygen concentration 20 % Flora Saunders RN [facility].; [facility]. 10-10-2022 13:28-0500 SaO2% (BldA) [Mass fraction] 95 % Flora Saunders RN [facility].; [employer] [facility]. 10-10-2022 13:28-0500 Systolic blood pressure 120 mm[Hg] Flora Saunders RN [facility].; [employer], [employer]. 09-26-2022 13:06-0500 Body height 168.91 cm Kelly Alegria [facility].; [employer] [facility]. 09-26-2022 13:06-0500 Body mass index (BMI) [Ratio] 22.1 kg/m2 Kelly Alegria [facility].; [employer], [facility]. 09-26-2022 13:06-0500 Body surface area Derived from formula 1.72 m2 Kelly Alegria [facility].; [employer] [facility]. 09-26-2022 13:06-0500 Body temperature 97.3 [degF] Kelly [facility]legria [facility].; [employer], [facility]. 09-26-2022 13:06-0500 Body weight 63.05 kg Kelly Alegria MA [facility].; [facility] [employer] [facility]. 09-26-2022 13:06-0500 Diastolic blood pressure 92 mm[Hg] Kelly Alegria MA [facility].; [employer], [facility]. 09-26-2022 13:06-0500 Heart rate 65 /min Kelly Alegria [facility].; [employer] [facility]. 09-26-2022 13:06-0500 Inhaled oxygen concentration 20 % Kelly Alegria MA [facility], [facility].; [employer] [facility], [employer]. 09-26-2022 13:06-0500 SaO2% (BldA) [Mass fraction] 96 % Kelly Alegria MA [facility], [facility].; [employer] 09-26-2022 13:06-0500 Systolic blood pressure 138 mm[Hg] Kelly Alegria MA [facility].; [employer] [facility], [facility] 07-15-2022 13:01-0400 Body height 168.91 cm Ashwini Clemente [facility], [facility].; [employer], [employer]. 07-15-2022 13:01-0400 Body mass index (BMI) [Ratio] 21.94 kg/m2 Ashwini Wharton [facility].; [employer] 07-15-2022 13:01-0400 Body surface area Derived from formula 1.[address] [facility] Wharton [facility], [facility].; [employer], [employer]. 07-15-2022 13:01-0400 Body weight 62.[address] [facility] Clemente [facility], [facility].; [employer], [employer]. 07-15-2022 13:01-0400 Diastolic blood pressure 88 mm[Hg] Ashwini Stuckey TERRA COTTA ROOFER HELPER [facility] [employer] 07-15-2022 13:01-0400 Heart rate 80 /min Ashwini Clemente TERRA COTTA ROOFER HELPER [facility], [facility].; [employer], [employer]. 07-15-2022 13:01-0400 Systolic blood pressure 138 mm[Hg] Ashwini Wharton TERRA COTTA ROOFER HELPER [employer] [facility], [facility].; [employer], [employer]. 06-23-2022 14:16-0400 Body height 168.91 cm Flora Saunders RN [employer] [facility], [facility].; [employer], [employer]. 06-23-2022 14:16-0400 Body mass index (BMI) [Ratio] 22.42 kg/m2 Flora Saunders RN [facility].; [employer] [facility]. 06-23-2022 14:16-0400 Body surface area Derived from formula 1.73 m2 Flora Saunders RN [facility].; [employer] [facility], [facility]. 06-23-2022 14:16-0400 Body temperature 99 [degF] Flora Saunders RN [facility].; [employer] [facility], [facility]. 06-23-2022 14:16-0400 Body weight 63.96 kg Flora Saunders RN [facility].; [employer] [facility]. 06-23-2022 14:16-0400 Diastolic blood pressure 85 mm[Hg] Flora Saunders RN [facility].; [employer] [facility], [facility]. 06-23-2022 14:16-0400 Heart rate 67 /min Flora Saunders RN [facility].; [employer] [facility]. 06-23-2022 14:16-0400 Systolic blood pressure 145 mm[Hg] Flora Saunders RN [employer] [facility] [facility].; [employer] [facility], [facility]. 06-03-2022 14:16-0400 Body height 168.91 cm Joyce Oden LPN [employer] [facility], [facility].; [employer] [facility], [facility]. 06-03-2022 14:16-0400 Body mass index (BMI) [Ratio] 22.73 kg/m2 Joyce Oden LPN [employer] [facility].; [employer] [facility], [facility]. 06-03-2022 14:16-0400 Body surface area Derived from formula 1.74 m2 Joyce Oden LPN [employer] [facility].; [employer] [facility], [facility]. 06-03-2022 14:16-0400 Body weight 64.86 kg Joyce Oden LPN [employer] [facility], [facility].; [employer], [facility]. 06-03-2022 14:16-0400 Diastolic blood pressure 78 mm[Hg] Joyce Oden LPN [employer] [facility] [employer], [facility]. 06-03-2022 14:16-0400 Heart rate 74 /min Joyce Oden LPN [employer] [facility].; [employer] [facility]. 06-03-2022 14:16-0400 Systolic blood pressure 130 mm[Hg] Joyce [facility]den LPN [facility].; [employer] [facility]. 04-14-2022 08:17-0400 Body height 168.91 cm Flora Saunders RN [employer] [facility].; [employer]. 04-14-2022 08:17-0400 Body mass index (BMI) [Ratio] 23.37 kg/m2 Flora Saunders RN [facility].; [employer] [facility]. 04-14-2022 08:17-0400 Body surface area Derived from formula 1.76 m2 Flora Saunders RN [employer] [facility].; [employer]. 04-14-2022 08:17-0400 Body temperature 98.2 [degF] Flora Saunders RN [employer] [facility].; [employer]. 04-14-2022 08:17-0400 Body weight 66.68 kg Flora Saunders RN [employer] [facility].; [employer]. 04-14-2022 08:17-0400 Diastolic blood pressure 81 mm[Hg] Flora Saunders RN [employer] [facility].; [employer]. 04-14-2022 08:17-0400 Heart rate 71 /min Flora Saunders RN [employer] [facility]; [employer]. 04-14-2022 08:17-0400 Inhaled oxygen concentration 20 % Flora Saunders RN [employer] [facility].; [employer]. 04-14-2022 08:17-0400 SaO2% (BldA) [Mass fraction] 99 % Flora Saunders RN [employer] [facility].; [employer]. 04-14-2022 08:17-0400 Systolic blood pressure 122 mm[Hg] Flora Saunders RN [employer] [facility].; [employer]. 03-04-2022 08:59-0400 Body height 168.91 cm Joyce Oden LPN [facility], [facility].; [employer] [facility], [facility]. 03-04-2022 08:59-0400 Body mass index (BMI) [Ratio] 23.85 kg/m2 Joyce Oden LPN [facility], [facility].; [facility], [facility]. 03-04-2022 08:59-0400 Body surface area Derived from formula 1.78 m2 Joyce Oden LPN [facility], [facility].; [facility], [facility]. 03-04-2022 08:59-0400 Body weight 68.04 kg Joyce Oden LPN [facility], [facility].; [employer] [facility], [facility]. 03-04-2022 08:59-0400 Diastolic blood pressure 67 mm[Hg] Joyce Oden LPN [facility], [facility].; [employer] [facility], [facility]. 03-04-2022 08:59-0400 Heart rate 75 /min Joyce Oden LPN [facility], [facility].; [employer] [facility], [facility]. 03-04-2022 08:59-0400 Systolic blood pressure 99 mm[Hg] Joyce Oden LPN [facility], [facility].; [employer] [facility], [facility]. 07-25-2021 09:01-0400 Body height 168.91 cm Radha Flores LPN [facility], [facility].; [employer] [facility], [facility]. 07-25-2021 09:01-0400 Body mass index (BMI) [Ratio] 24.96 kg/m2 Radha Flores LPN [facility], [facility].; [employer] [facility], [facility]. 07-25-2021 09:01-0400 Body surface area Derived from formula 1.81 m2 Radha Flores LPN [facility], [facility].; [employer] [facility], [facility]. 07-25-2021 09:01-0400 Body weight 71.22 kg Radha Flores LPN [facility], [facility].; [employer] 07-25-2021 09:01-0400 Diastolic blood pressure 88 mm[Hg] Radha Flores LPN [facility], [facility].; [employer], [facility]. 07-25-2021 09:01-0400 Heart rate 69 /min Radha Flores LPN [facility], [facility].; [employer] [facility], [facility]. 07-25-2021 09:01-0400 Systolic blood pressure 122 mm[Hg] Radha Flores LPN [facility], [facility].; [employer] [facility] 07-17-2021 08:33-0400 Body height 168.91 cm Radhamena Flores LPN [facility] [employer] [facility] 07-17-2021 08:33-0400 Body mass index (BMI) [Ratio] 25.6 kg/m2 [facility], [facility].; [employer] [facility], [facility]. 07-17-2021 08:33-0400 Body surface area Derived from formula 1.83 m2 Radha Flores LPN [facility] [employer] [facility], [facility] 07-17-2021 08:33-0400 Body weight 73.03 kg Radha Flores LPN [facility], [facility].; [employer] [facility] 07-17-2021 08:33-0400 Diastolic blood pressure 71 mm[Hg] Radha Flores LPN [facility], [facility].; [employer] [facility], [facility]. 07-17-2021 08:33-0400 Heart rate 69 /min Radhamena Flores LPN [facility], [facility].; [employer] [facility], [facility]. 07-17-2021 08:33-0400 Systolic blood pressure 103 mm[Hg] Radha Flores LPN [facility], [facility].; [employer] [facility] 06-25-2021 10:29-0400 Body height 168.91 cm Flora Saunders RN [facility], [facility].; [employer]. 06-25-2021 10:29-0400 Body mass index (BMI) [Ratio] 25.28 kg/m2 Flora Saunders RN [facility], [facility].; [employer] 06-25-2021 10:29-0400 Body surface area Derived from formula 1.82 m2 Flora Saunders RN [facility].; [employer] 06-25-2021 10:290400 Body temperature 98.4 [degF] Flora Saunders RN [facility].; [facility], [facility]. 06-25-2021 10:290400 Body weight 72.12 kg Flora Saunders RN [facility], [facility].; [employer] [facility], [facility]. 06-25-2021 10:290400 Diastolic blood pressure 79 mm[Hg] Flora Saunders RN [facility].; [employer], [facility]. 06-25-2021 10:29040 Heart rate 73 /min Flora Saunders RN [facility], [facility].; [employer] [facility], [facility]. 06-25-2021 10:29040 Systolic blood pressure 117 mm[Hg] Flora Saunders RN [facility], [facility].; [employer] [facility], [facility]. 04-11-2021 08:06-0400 Body height 168.91 cm Joyce Oden LPN [facility].; [employer] [facility], [facility]. 04-11-2021 08:06-0400 Body mass index (BMI) [Ratio] 24.01 kg/m2 Joyce Oden LPN [facility], [facility].; [employer] [facility], [facility]. 04-11-2021 08:06-0400 Body surface area Derived from formula 1.78 m2 Joyce Oden LPN [facility], [facility].; [facility], [facility]. 04-11-2021 08:06-0400 Body temperature 96.4 [degF] Joyce Oden LPN [facility], [facility].; [employer] [facility], [facility]. 04-11-2021 08:06-0400 Body weight 68.49 kg Joyce Oden LPN [facility], [facility].; [employer], [facility]. 04-11-2021 08:06-0400 Diastolic blood pressure 80 mm[Hg] Joyce Oden LPN [facility], [facility].; [employer], [facility]. 04-11-2021 08:06-0400 Heart rate 76 /min Joyce Oden LPN [facility].; [facility]. 04-11-2021 08:06-0400 Inhaled oxygen concentration 20 % Joyce Oden LPN [facility].; [facility]. 04-11-2021 08:06-0400 SaO2% (BldA) [Mass fraction] 97 % Joyce Oden LPN [facility].; [employer] [facility]. 04-11-2021 08:06-0400 Systolic blood pressure 108 mm[Hg] Joyce Oden LPN [facility].; [employer] [facility]. 03-25-2021 08:05-0400 Body height 168.91 cm Flora Saunders RN [facility].; [employer] [facility]. 03-25-2021 08:05-0400 Body mass index (BMI) [Ratio] 23.85 kg/m2 Flora Saunders RN [facility].; [employer] [facility]. 03-25-2021 08:05-0400 Body surface area Derived from formula 1.78 m2 Flora Saunders RN [employer] [facility].; [employer] [facility]. 03-25-2021 08:05-0400 Body weight 68.04 kg Flora Saundres RN [employer] [facility].; [employer] [facility]. 03-25-2021 08:05-0400 Diastolic blood pressure 82 mm[Hg] Flora Saunders RN [employer] [facility].; [employer] [facility]. 03-25-2021 08:05-0400 Heart rate 68 /min Flora Saunders RN [employer] [facility].; [employer] [facility]. 03-25-2021 08:05-0400 Systolic blood pressure 133 mm[Hg] Flora Saunders RN [employer] [facility].; [employer] [facility]. 02-08-2021 14:01-0400 Body height 168.91 cm Joyce Oden LPN [employer] [facility].; [employer]. 02-08-2021 14:01-0400 Body mass index (BMI) [Ratio] 23.69 kg/m2 Joyce Oden LPN [facility], [facility].; [employer] [facility]. 02-08-2021 14:01-0400 Body surface area Derived from formula 1.77 m2 Joyce Oden LPN [facility], [facility].; [facility], [facility]. 02-08-2021 14:01-0400 Body weight 67.59 kg Joyce Oden LPN [facility], [facility].; [facility]. 02-08-2021 14:01-0400 Diastolic blood pressure 74 mm[Hg] Joyce Oden LPN [facility].; [facility]. 02-08-2021 14:01-0400 Heart rate 60 /min Joyce Oden LPN [facility], [facility].; [facility], [facility]. 02-08-2021 14:01-0400 Systolic blood pressure 118 mm[Hg] Joyce Oden LPN [facility], [facility].; [employer] [facility]. 01-24-2021 08:54-0400 Body height 168.91 cm Flora Saunders RN [facility].; [employer] [facility]. 01-24-2021 08:54-0400 Body mass index (BMI) [Ratio] 23.37 kg/m2 Flora Saunders RN [employer] [facility].; [employer], [facility]. 01-24-2021 08:54-0400 Body surface area Derived from formula 1.76 m2 Flora Saunders RN [facility].; [employer] [facility]. 01-24-2021 08:54-0400 Body temperature 98.4 [degF] Flora Saunders RN [employer] [facility].; [employer] [facility]. 01-24-2021 08:54-0400 Body weight 66.68 kg Flora Saunders RN [employer] [facility].; [employer], [facility]. 01-24-2021 08:54-0400 Diastolic blood pressure 70 mm[Hg] Flora Saunders RN [employer] [facility].; [employer] [facility]. 01-24-2021 08:54-0400 Heart rate 68 /min Flora Saunders RN [facility].; [employer] [facility]. 01-24-2021 08:54-0400 Systolic blood pressure 102 mm[Hg] Flora Saunders RN [employer] [facility].; [employer]. 12-19-2020 10:41-0400 Body height 168.91 cm Radha Garcia LPN [facility], [facility].; [employer]. 12-19-2020 10:41-0400 Body mass index (BMI) [Ratio] 23.21 kg/m2 Radha Garcia LPN [employer] [facility].; [employer] [facility]. 12-19-2020 10:41-0400 Body surface area Derived from formula 1.76 m2 Rahda Garcia LPN [employer] [facility].; [employer] [facility]. 12-19-2020 10:41-0400 Body weight 66.23 kg Radha Garcia LPN [employer] [facility].; [employer] [facility]. 12-19-2020 10:41-0400 Diastolic blood pressure 82 mm[Hg] Radah Garcia LPN [employer] [facility].; [employer]. 12-19-2020 10:41-0400 Heart rate 65 /min Radha Garcia LPN [employer] [facility].; [employer] [facility]. 12-19-2020 10:41-0400 Systolic blood pressure 114 mm[Hg] Radha Garcia LPN [employer] [facility].; [employer] [facility]. 11-27-2020 15:09-0500 Body height 168.91 cm Flora Saunders RN [employer] [facility].; [employer]. 11-27-2020 15:09-0500 Body mass index (BMI) [Ratio] 23.53 kg/m2 Flora Saunders RN [employer] [facility].; [employer]. 11-27-2020 15:09-0500 Body surface area Derived from formula 1.77 m2 Flora Saunders RN [employer] [facility].; [employer]. 11-27-2020 15:09-0500 Body weight 67.13 kg Flora Saunders RN [facility].; [employer] [facility]. 11-27-2020 15:09-0500 Diastolic blood pressure 77 mm[Hg] Flora Saunders RN [facility].; [facility], [facility]. 11-27-2020 15:09-0500 Heart rate 67 /min Flora Saunders RN [facility].; [employer] [facility], [facility]. 11-27-2020 15:09-0500 Systolic blood pressure 129 mm[Hg] Flora Saunders RN [facility].; [facility], [facility]. 09-25-2020 09:190500 Body height 168.91 cm Joyce Oden LPN [facility].; [employer] [facility]. 09-25-2020 09:19-0500 Body mass index (BMI) [Ratio] 22.89 kg/m2 Joyce Oden LPN [facility].; [employer] [facility], [facility]. 09-25-2020 09:19-0500 Body surface area Derived from formula 1.75 m2 Joyce Oden LPN [facility].; [employer] [facility], [facility]. 09-25-2020 09:19-0500 Body temperature 98.6 [degF] Joyce Oden LPN [facility], [facility].; [employer] [facility], [facility]. 09-25-2020 09:19-0500 Body weight 65.32 kg Joyce Oden LPN [facility].; [employer] [facility]. 09-25-2020 09:19-0500 Heart rate 66 /min Joyce Oden LPN [facility].; [employer] [facility]. 09-25-2020 09:19-0500 Inhaled oxygen concentration 20 % Joyce Oden LPN [facility].; [employer] [facility]. 09-25-2020 09:19-0500 SaO2% (BldA) [Mass fraction] 98 % Joyce [facility]en L[facility].; [employer], [facility]. 09-18-2020 09:42-0500 Body height 168.91 cm Joyce Oden LPN [facility], [facility].; [facility]. 09-18-2020 09:42-0500 Body mass index (BMI) [Ratio] 23.21 kg/m2 Joyce Oden LPN [facility], [facility].; [facility], [facility]. 09-18-2020 09:42-0500 Body surface area Derived from formula 1.76 m2 Joyce Oden LPN [facility], [facility].; [facility], [facility]. 09-18-2020 09:42-0500 Body temperature 99 [degF] Joyce Oden LPN [facility], [facility].; [facility], [facility]. 09-18-2020 09:42-0500 Body weight 66.23 kg Joyce Oden LPN [facility], [facility].; [facility], [facility]. 09-18-2020 09:42-0500 Heart rate 77 /min Joyce Oden LPN [facility], [facility].; [facility], [facility]. 09-18-2020 09:42-0500 Inhaled oxygen concentration 20 % Joyce Oden LPN [facility].; [facility], [facility]. 09-18-2020 09:42-0500 SaO2% (BldA) [Mass fraction] 98 % Joyce Oden LPN [facility], [facility].; [facility], [facility]. 08-14-2020 11:15-0500 Body height 168.91 cm Flora Saunders RN [facility], [facility].; [facility], [facility]. 08-14-2020 11:15-0500 Body mass index (BMI) [Ratio] 23.85 kg/m2 Flora Saunders RN [facility], [facility].; [facility], [facility]. 08-14-2020 11:15-0500 Body surface area Derived from formula 1.78 m2 Flora Saunders RN [facility].; [facility], [facility]. 08-14-2020 11:15-0500 Body temperature 98.6 [degF] Flora Saunders RN [facility], [facility].; [employer] [facility]. 08-14-2020 11:15-0500 Body weight 68.04 kg Flora Saunders RN [employer] [facility], Inc.; [employer] 08-14-2020 11:15-0500 Diastolic blood pressure 73 mm[Hg] Flora Saunders RN [facility], [facility].; [employer] 08-14-2020 11:15-0500 Heart rate 75 /min Flora Saunders RN [facility], Inc.; [employer] 08-14-2020 11:15-0500 Systolic blood pressure 133 mm[Hg] Flora Saunders RN [facility], [facility].; [employer] 08-08-2020 08:10-0500 Body height 168.91 cm Joyce Oden LPN [facility], Inc.; [employer] 08-08-2020 08:10-0500 Body mass index (BMI) [Ratio] 23.05 kg/m2 Joyce Oden LPN [facility], Inc.; [employer] 08-08-2020 08:10-0500 Body surface area Derived from formula 1.75 m2 Joyce Oden LPN [employer] [facility], Inc.; [employer] 08-08-2020 08:10-0500 Body temperature 98.1 [degF] Joyce Oden LPN [facility], Inc.; [employer] 08-08-2020 08:10-0500 Body weight 65.77 kg Joyce Oden LPN [employer] [facility], Inc.; [employer] 08-08-2020 08:10-0500 Diastolic blood pressure 74 mm[Hg] Joyce Oden LPN [employer] [facility], [facility].; [employer] 08-08-2020 08:10-0500 Heart rate 71 /min Joyce Oden LPN [employer] [facility], Inc.; [employer] 08-08-2020 08:10-0500 Systolic blood pressure 128 mm[Hg] Joyce Oden LPN [employer] [facility], Inc.; [employer] 05-11-2020 08:41-0400 Body height 168.91 cm Joyce Oden LPN [employer], [facility].; [employer]. 05-11-2020 08:41-0400 Body mass index (BMI) [Ratio] 22.89 kg/m2 Joyce Oden LPN [employer] [facility].; [employer] [facility]. 05-11-2020 08:41-0400 Body surface area Derived from formula 1.75 m2 Joyce Oden LPN [employer] [facility], [facility].; [employer] [facility]. 05-11-2020 08:41-0400 Body weight 65.32 kg Joyce Oden LPN [employer] [facility].; [employer] [facility]. 05-11-2020 08:41-0400 Diastolic blood pressure 78 mm[Hg] Joyce Oden LPN [employer] [facility].; [employer]. 05-11-2020 08:41-0400 Heart rate 65 /min Joyce Oden LPN [employer] [facility].; [employer]. 05-11-2020 08:41-0400 Systolic blood pressure 113 mm[Hg] Joyce Oden LPN [employer] [facility].; [employer]. 05-04-2020 09:06-0400 Body height 168.91 cm Flora Saunders RN [employer] [facility].; [employer]. 05-04-2020 09:06-0400 Body mass index (BMI) [Ratio] 22.89 kg/m2 Flora Saunders RN [employer] [facility].; [employer]. 05-04-2020 09:06-0400 Body surface area Derived from formula 1.75 m2 Flora Saunders RN [employer] [facility].; [employer]. 05-04-2020 09:06-0400 Body temperature 97.2 [degF] Flora Saunders RN [employer] [facility].; [employer]. 05-04-2020 09:06-0400 Body weight 65.32 kg Flora Saunders RN [employer] [facility].; [employer]. 05-04-2020 09:06-0400 Diastolic blood pressure 82 mm[Hg] Flora Saunders RN [employer] [facility].; [employer] [facility]. 05-04-2020 09:06-0400 Heart rate 66 /min Flora Saunders RN [facility].; [employer] [facility]. 05-04-2020 09:06-0400 Systolic blood pressure 117 mm[Hg] Flora Saunders RN [facility].; [employer] 02-13-2020 14:24-0400 Body height 168.91 cm Shira Singh RN [facility].; [employer] [facility]. 02-13-2020 14:24-0400 Body mass index (BMI) [Ratio] 23.69 kg/m2 Shira Singh RN [employer] [facility].; [employer] [facility]. 02-13-2020 14:24-0400 Body surface area Derived from formula 1.77 m2 Shira Singh RN [employer] [facility].; [employer] [facility]. 02-13-2020 14:24-0400 Body weight 67.59 kg Shira Singh RN [employer] [facility].; [employer] [facility]. 02-13-2020 14:24-0400 Diastolic blood pressure 121 mm[Hg] Shira Singh RN [employer] [facility].; [employer] [facility]. 02-13-2020 14:24-0400 Heart rate 73 /min Shira Singh RN [employer] [facility].; [employer] 02-13-2020 14:24-0400 Systolic blood pressure 153 mm[Hg] Shira Singh RN [employer] [facility].; [employer] [facility]. 01-26-2020 08:32-0400 Body height 168.91 cm Flora Saunders RN [employer] [facility].; [employer]. 01-26-2020 08:32-0400 Body mass index (BMI) [Ratio] 23.53 kg/m2 Flora Saunders RN [employer] [facility].; [employer]. 01-26-2020 08:32-0400 Body surface area Derived from formula 1.77 m2 Flora Saunders RN [employer] [facility].; [employer]. 01-26-2020 08:32-0400 Body temperature 98.2 [degF] Flora Saunders RN [facility].; [employer] [facility]. 01-26-2020 08:32-0400 Body weight 67.13 kg Flora Saunders RN [facility], [facility].; [employer] 10-21-2019 14:44-0500 Body height 168.91 cm Julia Cassidy LPN [employer] [facility], Inc.; [employer] 10-21-2019 14:44-0500 Body mass index (BMI) [Ratio] 23.53 kg/m2 Julia Cassidy LPN [employer] [facility], Inc.; [employer] 10-21-2019 14:44-0500 Body surface area Derived from formula 1.77 m2 Julia Cassidy LPN [employer] [facility], Inc.; [employer] 10-21-2019 14:44-0500 Body weight 67.13 kg Julia Cassidy LPN [employer] [facility].; [employer]. 10-21-2019 14:44-0500 Diastolic blood pressure 73 mm[Hg] Julia Cassidy LPN [employer] [facility], Inc.; [employer] 10-21-2019 14:44-0500 Heart rate 77 /min Julia Cassidy LPN [employer].; [employer]. 10-21-2019 14:44-0500 Systolic blood pressure 112 mm[Hg] Julia Cassidy LPN [employer] [facility].; [employer]. 10-13-2019 16:02-0500 Body height 168.91 cm Joyce Oden LPN [employer] [facility], [facility].; [employer], [employer]. 10-13-2019 16:02-0500 Body mass index (BMI) [Ratio] 23.05 kg/m2 Joyce Oden LPN [employer], [employer], [employer]. 10-13-2019 16:02-0500 Body surface area Derived from formula 1.75 m2 Joyce Oden LPN [facility], Inc.; [employer] 10-13-2019 16:02-0500 Body temperature 98.5 [degF] Joyce Oden LPN [facility], Inc.; [employer] 10-13-2019 16:02-0500 Body weight 65.77 kg Joyce Oden LPN [facility], Inc.; [employer] 10-13-2019 16:02-0500 Diastolic blood pressure 110 mm[Hg] Joyce Oden LPN [facility], Inc.; [employer] 10-13-2019 16:02-0500 Heart rate 71 /min Joyce Oden LPN [facility], Inc.; [employer] 10-13-2019 16:02-0500 Systolic blood pressure 142 mm[Hg] Joyce Oden LPN [facility], Inc.; [employer] 09-26-2019 10:40-0500 Body height 168.91 cm Joyce Oden LPN [facility], Inc.; [employer] 09-26-2019 10:40-0500 Body mass index (BMI) [Ratio] 22.89 kg/m2 Joyce Oden LPN [facility], Inc.; [employer] 09-26-2019 10:40-0500 Body surface area Derived from formula 1.75 m2 Joyce Oden LPN [facility], Inc.; [employer] 09-26-2019 10:40-0500 Body weight 65.32 kg Joyce Oden LPN [facility], Inc.; [employer] 09-26-2019 10:40-0500 Diastolic blood pressure 86 mm[Hg] Joyce Oden LPN [facility], Inc.; [employer] 09-26-2019 10:40-0500 Heart rate 76 /min Joyce Oden LPN [employer] [facility], Inc.; [employer] 09-26-2019 10:40-0500 Systolic blood pressure 129 mm[Hg] Joyce Oden LPN [facility], Inc.; [employer] 08-13-2019 10:23-0500 Body height 168.91 cm Joyce Oden LPN [employer] 08-13-2019 10:23-0500 Body mass index (BMI) [Ratio] 23.05 kg/m2 Joyce Oden LPN [employer], [employer] 08-13-2019 10:23-0500 Body surface area Derived from formula 1.75 m2 Joyce Oden LPN [employer], [employer] 08-13-2019 10:23-0500 Body weight 65.77 kg Joyce Oden LPN [employer], [employer] 08-13-2019 10:23-0500 Diastolic blood pressure 72 mm[Hg] Joyce Oden LPN [employer], [employer] 08-13-2019 10:23-0500 Heart rate 70 /min Joyce Oden LPN [employer], [employer] 08-13-2019 10:23-0500 Systolic blood pressure 113 mm[Hg] Joyce Oden LPN [employer], [employer] 08-03-2019 16:17-0500 Body height 168.91 cm Pam Day [facility] [employer] 08-03-2019 16:17-0500 Body mass index (BMI) [Ratio] 23.21 kg/m2 Pam Day [facility] [employer] 08-03-2019 16:17-0500 Body surface area Derived from formula 1.76 m2 Pam Day [facility] [employer] 08-03-2019 16:17-0500 Body weight 66.23 kg Pam Day [facility] [employer] 08-03-2019 16:17-0500 Diastolic blood pressure 85 mm[Hg] Pam Day [facility] [employer] 08-03-2019 16:17-0500 Heart rate 70 /min Pam Day [facility] [employer] 08-03-2019 16:17-0500 Systolic blood pressure 137 mm[Hg] Pam Downey [facility] [employer] 05-02-2019 11:51-0400 Body height 168.91 cm Grace Cornejo [facility], Inc.; [employer] 05-02-2019 11:51-0400 Body mass index (BMI) [Ratio] 22.42 kg/m2 Grace Cornejo [facility] Inc.; [employer] 05-02-2019 11:51-0400 Body surface area Derived from formula 1.[address] [facility] Clemente [facility], Inc.; [employer] 05-02-2019 11:51-0400 Body weight 63.96 kg Ashwini Stuckey [facility] [employer] 05-02-2019 11:51-0400 Diastolic blood pressure 79 mm[Hg] Grace Cornejo [facility] Inc.; [employer] 05-02-2019 11:51-0400 Heart rate 71 /min Grace Cornejo [facility] [employer] 05-02-2019 11:51-0400 Systolic blood pressure 127 mm[Hg] Grace Cornejo [facility] [employer] 12-16-2018 10:44-0400 Body height 168.91 cm Flora Saunders RN [employer] 12-16-2018 10:44-0400 Body mass index (BMI) [Ratio] 24.32 kg/m2 Flora Saunders RN [employer], [employer].; [employer] 12-16-2018 10:44-0400 Body surface area Derived from formula 1.79 m2 Flora Saunders RN [employer], [employer] 12-16-2018 10:44-0400 Body weight 69.4 kg Flora Saunders RN [employer], [facility].; [employer]. 12-16-2018 10:44-0400 Diastolic blood pressure 72 mm[Hg] Flora Saunders RN [employer] [facility].; [employer]. 12-16-2018 10:44-0400 Heart rate 76 /min Flora Saunders RN [employer], [facility].; [employer]. 12-16-2018 10:44-0400 Systolic blood pressure 106 mm[Hg] Flora Saunders RN [employer] [facility].; [employer]. 10-19-2018 11:18-0500 Body height 168.91 cm Skyla K Mutersbaugh [employer].; [employer] 10-19-2018 11:18-0500 Body mass index (BMI) [Ratio] 24.01 kg/m2 Skyla K Mutersbaugh [employer], [employer].; [employer]. 10-19-2018 11:18-0500 Body surface area Derived from formula 1.78 m2 Skyla K Mutersbaugh [employer], [employer].; [employer]. 10-19-2018 11:18-0500 Body temperature 98.8 [degF] Skyla K Mutersbaugh [employer], [employer].; [employer]. 10-19-2018 11:18-0500 Body weight 68.49 kg Skyla K Mutersbaugh [employer].; [employer]. 10-19-2018 11:18-0500 Diastolic blood pressure 78 mm[Hg] Skyla K Mutersbaugh [employer].; [employer]. 10-19-2018 11:18-0500 Heart rate 77 /min Skyla K Mutersbaugh [employer]. 10-19-2018 11:18-0500 Systolic blood pressure 126 mm[Hg] Skyla K Mutersbaugh [employer].; [employer]. 09-13-2018 13:52-0500 Body height 168.91 cm Grace Cornejo [employer] [facility], Inc.; [employer] 09-13-2018 13:52-0500 Body mass index (BMI) [Ratio] 24.48 kg/m2 Grace Cornejo [employer] [facility], Inc.; [employer] 09-13-2018 13:52-0500 Body surface area Derived from formula 1.8 m2 Grace Cornejo [employer] [facility], Inc.; [employer] 09-13-2018 13:52-0500 Body temperature 98 [degF] Ashwini Clemente [facility], Inc.; [employer] 09-13-2018 13:52-0500 Body weight 69.85 kg Grace Cornejo [employer] [facility], Inc.; [employer] 09-13-2018 13:52-0500 Diastolic blood pressure 74 mm[Hg] Grace Cornejo [facility] [employer] [facility], Inc.; [employer] 09-13-2018 13:52-0500 Heart rate 73 /min [facility] Clemente [facility], Inc.; [employer] 09-13-2018 13:52-0500 Systolic blood pressure 130 mm[Hg] Grace Cornejo [employer] [facility], Inc.; [employer] 08-31-2018 13:58-0500 Body height 168.91 cm Flora Saunders RN [employer] [facility], Inc.; [employer] 08-31-2018 13:58-0500 Body mass index (BMI) [Ratio] 24.01 kg/m2 Flora Saunders RN [employer] [facility], Inc.; [employer] 08-31-2018 13:58-0500 Body surface area Derived from formula 1.78 m2 Flora Saunders RN [employer] [facility], Inc.; [employer] 08-31-2018 13:58-0500 Body temperature 98.8 [degF] Flora Saunders RN [employer] 08-31-2018 13:58-0500 Body weight 68.49 kg Flora Saunders RN [employer] [facility], Inc.; [employer] 08-31-2018 13:58-0500 Diastolic blood pressure 69 mm[Hg] Flora Saunders RN [employer], [employer] 08-31-2018 13:58-0500 Heart rate 80 /min Flora Saunders RN [employer] [facility], Inc.; [employer] 08-31-2018 13:58-0500 Systolic blood pressure 106 mm[Hg] Flora Saunders RN [employer], [employer] 08-30-2018 12:57-0500 Body height 168.91 cm AshwiniGianna Cornejo LPN [employer] [facility], Inc.; [employer] 08-30-2018 12:57-0500 Body mass index (BMI) [Ratio] 24.01 kg/m2 AshwiniGianna Cornejo LPN [employer] [facility], Inc.; [employer] 08-30-2018 12:57-0500 Body surface area Derived from formula 1.78 m2 AshwiniGianna Cornejo LPN [employer] [facility], Inc.; [employer] 08-30-2018 12:57-0500 Body temperature 97.7 [degF] AshwiniGianna Cornejo LPN [employer] 08-30-2018 12:57-0500 Body weight 68.49 kg Grace Cornejo LPN [employer] [facility], Inc.; [employer] 08-30-2018 12:57-0500 Diastolic blood pressure 84 mm[Hg] Grace Cornejo LPN [employer] [facility], Inc.; [employer] 08-30-2018 12:57-0500 Heart rate 67 /min Grace Cornejo LPN [employer] [facility], Inc.; [employer] 08-30-2018 12:57-0500 Systolic blood pressure 126 mm[Hg] Grace Cornejo LPN [employer], [employer]. 08-23-2018 10:36-0500 Body height 168.91 cm Grace Cornejo [facility], Inc.; [employer], [employer]. 08-23-2018 10:36-0500 Body mass index (BMI) [Ratio] 24.32 kg/m2 Grace Cornejo [facility], Inc.; [employer], [employer]. 08-23-2018 10:36-0500 Body surface area Derived from formula 1.79 m2 Grace Cornejo [facility], Inc.; [employer], [employer]. 08-23-2018 10:36-0500 Body weight 69.4 kg Grace Cornejo [facility], Inc.; [employer], [employer]. 08-23-2018 10:36-0500 Diastolic blood pressure 72 mm[Hg] Grace Cornejo [facility], Inc.; [employer], [employer]. 08-23-2018 10:36-0500 Heart rate 79 /min AshwiniGianna Cornejo [facility], Inc.; [employer], [employer]. 08-23-2018 10:36-0500 Systolic blood pressure 111 mm[Hg] Grace Cornejo [facility], Inc.; [employer], [employer]. 07-01-2018 09:34-0400 Body height 168.91 cm Flora Saunders RN [employer] [facility], Inc.; [employer], [employer]. 07-01-2018 09:34-0400 Body mass index (BMI) [Ratio] 24.32 kg/m2 Flora Saunders RN [employer] [facility], [employer].; [employer], [employer]. 07-01-2018 09:34-0400 Body surface area Derived from formula 1.79 m2 Flora Saunders RN [employer] [facility], [employer].; [employer], [employer]. 07-01-2018 09:34-0400 Body temperature 98.4 [degF] Flora Saunders RN [employer], [employer].; [employer], [employer]. 07-01-2018 09:34-0400 Body weight 69.4 kg Flora Saunders RN [employer] [facility].; [employer]. 07-01-2018 09:34-0400 Diastolic blood pressure 76 mm[Hg] Flora Saunders RN [employer] [facility].; katena. 07-01-2018 09:34-0400 Heart rate 68 /min Flora Saunders RN [employer] [facility] [employer].; katena. 07-01-2018 09:34-0400 Inhaled oxygen concentration 20 % Flora Saunders RN [employer] [facility].; katena. 07-01-2018 09:34-0400 SaO2% (BldA) [Mass fraction] 98 % Flora Saunders RN [employer] [facility] [employer].; katena. 07-01-2018 09:34-0400 Systolic blood pressure 107 mm[Hg] Flora Saunders RN [employer] [facility].; katena. 05-20-2018 11:48-0400 Body height 168.91 cm Flora Saunders RN [employer] [facility].; katena. 05-20-2018 11:48-0400 Body mass index (BMI) [Ratio] 24.01 kg/m2 Flora Saunders RN [employer] [facility] [employer].; [employer]. 05-20-2018 11:48-0400 Body surface area Derived from formula 1.78 m2 Flora Saunders RN [employer] [facility] [employer].; katena. 05-20-2018 11:48-0400 Body temperature 98.5 [degF] Flora Saunders RN [employer].; katena. 05-20-2018 11:48-0400 Body weight 68.49 kg Flora Saunders RN [employer] [facility].; katena. 05-20-2018 11:48-0400 Diastolic blood pressure 82 mm[Hg] Flora Saunders RN [employer] [facility] [employer].; katena. 05-20-2018 11:48-0400 Heart rate 63 /min Flora Saunders RN [facility], Inc.; katena. 05-20-2018 11:48-0400 Systolic blood pressure 128 mm[Hg] Flora Saunders RN [employer] [facility], [facility].; [employer], Inc[employer] 05-18-2018 09:37-0400 Body height 168.91 cm Annalee Brown [facility] [employer] [facility], Inc.; katena. 05-18-2018 09:37-0400 Body mass index (BMI) [Ratio] 23.85 kg/m2 Annalee Brown LPN [employer] [facility], Inc.; [employer], [employer]. 05-18-2018 09:37-0400 Body surface area Derived from formula 1.78 m2 Annalee Brown LPN [employer] [facility], Inc.; [employer], [employer]. 05-18-2018 09:37-0400 Body weight 68.04 kg Annalee Brown LPN [employer] [facility], Inc.; katena. 05-18-2018 09:37-0400 Diastolic blood pressure 74 mm[Hg] Annalee Brown LPN [employer] [facility], Inc.; [employer], [employer]. 05-18-2018 09:37-0400 Heart rate 64 /min Annalee Brown LPN [employer] [facility], Inc.; [employer], [employer]. 05-18-2018 09:37-0400 Systolic blood pressure 112 mm[Hg] Annalee Brown LPN [employer] [facility], Inc.; katena. 02-26-2018 11:37-0400 Body height 168.91 cm Skyla K Mutersbaugh [employer] [facility], [facility].; katena. 02-26-2018 11:37-0400 Body mass index (BMI) [Ratio] 22.73 kg/m2 Skyla K Mutersbaugh [facility], Inc.; [employer], [employer]. 02-26-2018 11:37-0400 Body surface area Derived from formula 1.74 m2 Skyla K Mutersbaugh [facility] [employer] [facility], Inc.; [employer]. 02-26-2018 11:37-0400 Body weight 64.86 kg Skyla K Mutersbaugh [employer] [facility], Inc.; [employer] 02-26-2018 11:37-0400 Diastolic blood pressure 76 mm[Hg] Skyla K Mutersbaugh [employer], Inc.; [employer], Inc[employer] 02-26-2018 11:37-0400 Heart rate 68 /min Skyla K Mutersbaugh [employer], Inc.; [employer], Inc[employer] 02-26-2018 11:37-0400 Systolic blood pressure 116 mm[Hg] Skyla K Mutersbaugh [employer], Inc.; [employer], Inc[employer] 02-05-2018 12:49-0400 Body height 168.91 cm Alex Rose) [employer] [facility], Inc.; [employer], Inc[employer] 02-05-2018 12:49-0400 Body mass index (BMI) [Ratio] 22.26 kg/m2 Alex Rose) [employer] [facility], Inc.; [employer], Inc[employer] 02-05-2018 12:49-0400 Body surface area Derived from formula 1.73 m2 Alexalisha Rose) [employer] [facility], Inc.; [employer], Inc[employer] 02-05-2018 12:49-0400 Body weight 63.5 kg Alex Rose) [employer], Inc.; [employer], Inc[employer] 02-05-2018 12:49-0400 Diastolic blood pressure 80 mm[Hg] Alex Rose) [employer] [facility], Inc.; [employer], Inc[employer] 02-05-2018 12:49-0400 Heart rate 66 /min Alex Rose) [employer], Inc.; [employer], [employer]. 02-05-2018 12:49-0400 Systolic blood pressure 108 mm[Hg] Alex Hoang (Cedrick[place]jairo) [employer]King[employer], Inc.; [employer], Inc[employer] 12-17-2017 13:48-0400 Body height 168.91 cm Skyla Marily Mutersbaugh [employer], Inc.; katena. 12-17-2017 13:48-0400 Body mass index (BMI) [Ratio] 21.62 kg/m2 Skyla K Mutersbaugh [employer], Inc.; [employer], [employer]. 12-17-2017 13:48-0400 Body surface area Derived from formula 1.71 m2 Skyla K Mutersbaugh [employer], Inc.; [employer], Inc[employer] 12-17-2017 13:48-0400 Body weight 61.69 kg Skyla K Mutersbaugh [employer], Inc.; [employer], [employer]. 12-17-2017 13:48-0400 Diastolic blood pressure 80 mm[Hg] Skyla K Mutersbaugh [employer], Inc.; [employer], [employer]. 12-17-2017 13:48-0400 Heart rate 85 /min Skyla K Mutersbaugh [employer], Inc.; [employer], [employer]. 12-17-2017 13:48-0400 Systolic blood pressure 115 mm[Hg] Skyla K Mutersbaugh [employer], Inc.; [employer], [employer]. 12-05-2017 08:49-0500 Body height 168.91 cm Annalee Brown LPN [employer], Inc.; [employer], [employer]. 12-05-2017 08:49-0500 Body mass index (BMI) [Ratio] 22.1 kg/m2 Annalee Brown LPN [employer], Inc.; [employer], [employer]. 12-05-2017 08:49-0500 Body surface area Derived from formula 1.72 m2 Annalee Brown LPN [employer], Inc.; [employer], [employer]. 12-05-2017 08:49-0500 Body temperature 97.8 [degF] Annalee Brown LPN [employer], Inc.; [employer], [employer]. 12-05-2017 08:49-0500 Body weight 63.05 kg Annalee Brown LPN [employer], Inc.; [employer], [employer]. 12-05-2017 08:49-0500 Diastolic blood pressure 66 mm[Hg] Annalee Brown LPN [employer], Inc.; katena. 12-05-2017 08:49-0500 Heart rate 66 /min Annalee Brown LPN [employer] [facility], Inc.; [employer], Inc[employer] 12-05-2017 08:49-0500 Systolic blood pressure 107 mm[Hg] Annalee Brown LPN [employer], Inc.; [employer], Inc[employer] 11-30-2017 16:34-0500 Body height 168.91 cm Grace Cornejo [facility], Inc.; [employer], Inc[employer] 11-30-2017 16:34-0500 Body mass index (BMI) [Ratio] 21.94 kg/m2 Ashwini Clemente [facility], Inc.; [employer], Inc[employer] 11-30-2017 16:34-0500 Body surface area Derived from formula 1.72 m2 Grace Cornejo [employer], Inc.; [employer], Inc[employer] 11-30-2017 16:34-0500 Body temperature 96.9 [degF] Grace Cornejo [facility], Inc.; [employer], Inc[employer] 11-30-2017 16:34-0500 Body weight 62.6 kg Grace Cornejo [facility], Inc.; [employer], Inc[employer] 11-30-2017 16:34-0500 Diastolic blood pressure 84 mm[Hg] Grace Cornejo [facility], Inc.; [employer], Inc[employer] 11-30-2017 16:34-0500 Heart rate 76 /min Grace Cornejo [employer], Inc.; [employer], Inc[employer] 11-30-2017 16:34-0500 Systolic blood pressure 122 mm[Hg] Grace Cornejo [facility], Inc.; [employer], Inc[employer] 11-12-2017 11:22-0500 Body height 168.91 cm Skyla Soria [employer], Inc.; [employer], Inc[employer] 11-12-2017 11:22-0500 Body mass index (BMI) [Ratio] 21.94 kg/m2 Skyla Soria [facility], Inc.; katena. 11-12-2017 11:22-0500 Body surface area Derived from formula 1.72 m2 Skyla Marily Mutersbaugh [employer].; katena. 11-12-2017 11:22-0500 Body weight 62.6 kg Skyla K Mutersbaugh [employer] Inc.; katena. 11-12-2017 11:22-0500 Diastolic blood pressure 86 mm[Hg] Skyla K Mutersbaugh [employer].; katena. 11-12-2017 11:22-0500 Heart rate 112 /min Skyla Marily Mutersbaugh [employer].; katena. 11-12-2017 11:22-0500 Systolic blood pressure 119 mm[Hg] Skyla K Mutersbaugh [employer].; katena. 10-19-2017 18:12-0500 Body height 168.91 cm Alex Rose) [employer] [facility], Inc.; katena. 10-19-2017 18:12-0500 Body mass index (BMI) [Ratio] 22.26 kg/m2 Alex Rose) [employer] [facility], Inc.; [employer] 10-19-2017 18:12-0500 Body surface area Derived from formula 1.73 m2 Alex Rose) [employer], Inc.; katena. 10-19-2017 18:12-0500 Body temperature 98.3 [degF] Alex Chiangibjairo) [employer].; katena. 10-19-2017 18:12-0500 Body weight 63.5 kg Alex Rose) [employer], Inc.; [employer] 10-19-2017 18:12-0500 Diastolic blood pressure 90 mm[Hg] Alex Rose) [employer], Inc.; katena. 10-19-2017 18:12-0500 Heart rate 81 /min Alex Rose) [facility].; katena. 10-19-2017 18:12-0500 Systolic blood pressure 114 mm[Hg] Alex Rose) [facility], Inc.; [employer], Inc. 10-10-2017 09:29-0500 Body height 165.1 cm Flora Saunders RN [employer] [facility] Inc.; [employer] 10-10-2017 09:29-0500 Body mass index (BMI) [Ratio] 23.13 kg/m2 Flora Saunders RN [employer].; [employer]. 10-10-2017 09:29-0500 Body surface area Derived from formula 1.69 m2 Flora Saunders RN [employer].; [employer]. 10-10-2017 09:29-0500 Body temperature 97.6 [degF] Flora Saunders RN [employer].; [employer]. 10-10-2017 09:29-0500 Body weight 63.05 kg Flora Saunders RN [employer].; katena. 10-10-2017 09:29-0500 Diastolic blood pressure 78 mm[Hg] Flora Saunders RN [employer] 10-10-2017 09:29-0500 Heart rate 59 /min Flora Saunders RN [employer].; katena. 10-10-2017 09:29-0500 Systolic blood pressure 115 mm[Hg] Flora Saunders RN [employer].; katena. 08-26-2017 09:19-0500 BMI (Body Mass Index) 22.92 kg/m2 MD Adi Eaton [employer] Work Phone: 08-26-2017 09:19-0500 BP Diastolic 60 mm[Hg] MD Adi Eaton [facility] Work Phone: 08-26-2017 09:19-0500 BP Systolic 92 mm[Hg] MD [facility] Work Phone: 08-26-2017 09:19-0500 Height 167.64 cm [facility] Work Phone: 08-26-2017 09:19-0500 Pulse (Heart Rate) 64 /min [facility] [employer] Work Phone: 08-26-2017 09:19-0500 Respiratory Rate 16 /min MD Adi Eaton [facility] [employer] Work Phone: 08-26-2017 09:19-0500 Weight 64.41 kg MD Adi Eaton [facility] [employer] Work Phone: 08-13-2017 12:08-0500 Body height 165.1 cm Flora Saunders RN [employer], Inc.; katena. 08-13-2017 12:08-0500 Body mass index (BMI) [Ratio] 23.63 kg/m2 Flora Saunders RN [employer].; katena. 08-13-2017 12:08-0500 Body surface area Derived from formula 1.71 m2 Flora Saunders RN [employer], [employer].; [employer], [employer]. 08-13-2017 12:08-0500 Body weight 64.41 kg Flora Saunders RN [employer].; katena. 08-13-2017 12:08-0500 Diastolic blood pressure 76 mm[Hg] Flora Saunders RN [employer].; katena. 08-13-2017 12:08-0500 Heart rate 71 /min Flora Saunders RN [employer].; katena. 08-13-2017 12:08-0500 Systolic blood pressure 111 mm[Hg] Flora Saunders RN [employer], [employer].; katena. 05-19-2017 11:45-0400 Body height 165.1 cm Skyla Soria LPN [employer] [facility], [facility].; katena. 05-19-2017 11:45-0400 Body mass index (BMI) [Ratio] 23.96 kg/m2 Skyla K Mutersbaugh [employer] [facility], Inc.; katena. 05-19-2017 11:45-0400 Body surface area Derived from formula 1.72 m2 Skyla K Mutersbaugh [employer], Inc.; katena. 05-19-2017 11:45-0400 Body weight 65.32 kg Skyla K Mutersbaugh [employer], [facility].; katena. 05-19-2017 11:45-0400 Diastolic blood pressure 76 mm[Hg] Skyla K Mutersbaugh [employer], Inc.; katena. 05-19-2017 11:45-0400 Heart rate 67 /min Skyla K Mutersbaugh [employer], [facility].; katena. 05-19-2017 11:45-0400 Systolic blood pressure 106 mm[Hg] Skyla K Mutersbaugh [employer].; katena. 03-03-2017 14:35-0400 Body height 165.1 cm Skyla K Mutersbaugh [employer], [facility].; katena. 03-03-2017 14:35-0400 Body mass index (BMI) [Ratio] 24.63 kg/m2 Skyla K Mutersbaugh [employer] [facility].; katena. 03-03-2017 14:35-0400 Body surface area Derived from formula 1.74 m2 Skyla K Mutersbaugh [employer].; katena. 03-03-2017 14:35-0400 Body weight 67.13 kg Skyla K Mutersbaugh [employer], [employer].; katena. 03-03-2017 14:35-0400 Diastolic blood pressure 81 mm[Hg] Skyla K Mutersbaugh [employer].; [employer]. 03-03-2017 14:35-0400 Heart rate 67 /min Skyla K Mutersbaugh [employer], [facility].; [employer], Inc[employer] 03-03-2017 14:35-0400 Systolic blood pressure 119 mm[Hg] Skyla K Mutersbaugh [employer] [facility]. 02-09-2017 10:30-0400 Body height 165.1 cm Skyla K Mutersbaugh [employer], [facility].; [employer], [employer]. 02-09-2017 10:30-0400 Body mass index (BMI) [Ratio] 24.46 kg/m2 Skyla K Mutersbaugh [employer] [facility], Inc.; [employer], [employer]. 02-09-2017 10:30-0400 Body surface area Derived from formula 1.74 m2 Skyla K Mutersbaugh [employer].; [employer], [facility]. 02-09-2017 10:30-0400 Body temperature 98.8 [degF] Skyla K Mutersbaugh [employer], [facility].; [employer], [employer]. 02-09-2017 10:30-0400 Body weight 66.68 kg Skyla K Mutersbaugh [employer], [facility].; [employer], [employer]. 02-09-2017 10:30-0400 Diastolic blood pressure 73 mm[Hg] Skyla K Mutersbaugh [employer], [facility].; [employer]. 02-09-2017 10:30-0400 Heart rate 63 /min Skyla K Mutersbaugh [employer] Home [employer] [facility].; [employer]. 02-09-2017 10:30-0400 Systolic blood pressure 130 mm[Hg] Skyla K Mutersbaugh [employer]obar[employer] Home [employer] [facility].; katena. 01-08-2017 15:15-0400 Body height 165.1 cm Flora Saunders RN [employer] [facility] Private [facility].; [employer]. 01-08-2017 15:15-0400 Body mass index (BMI) [Ratio] 23.96 kg/m2 Flora Saunders RN [employer], [employer] 01-08-2017 15:15-0400 Body surface area Derived from formula 1.72 m2 Flora Saunders RN [employer], Inc.; [employer], [employer] 01-08-2017 15:15-0400 Body temperature 98.7 [degF] Flora Saunders RN [employer], Inc.; [employer], [employer] 01-08-2017 15:15-0400 Body weight 65.32 kg Flora Saunders RN [employer], [employer].; katena. 01-08-2017 15:15-0400 Diastolic blood pressure 78 mm[Hg] Flora Saunders RN [employer], [employer].; [employer] 01-08-2017 15:15-0400 Heart rate 74 /min Flora Saunders RN [employer], Inc.; katena. 01-08-2017 15:15-0400 Systolic blood pressure 114 mm[Hg] Flora Saunders RN [employer], [employer].; [employer] 12-20-2016 08:10-0400 Body height 165.1 cm Grace Cornejo LPN [employer], [employer].; [employer] 12-20-2016 08:10-0400 Body mass index (BMI) [Ratio] 23.96 kg/m2 Grace Cornejo LPN [employer], [employer].; katena. 12-20-2016 08:10-0400 Body surface area Derived from formula 1.72 m2 Grace Cornejo LPN [employer], [employer].; katena. 12-20-2016 08:10-0400 Body weight 65.32 kg Grace Cornejo LPN [employer], Inc.; [employer], [employer]. 12-20-2016 08:10-0400 Diastolic blood pressure 77 mm[Hg] Grace Cornejo LPN [employer], [employer].; katena. 12-20-2016 08:10-0400 Heart rate 66 /min [facility], Inc.; katena. 12-20-2016 08:10-0400 Systolic blood pressure 114 mm[Hg] Grace Cornejo [employer], Inc.; [employer], [employer] 12-17-2016 10:36-0400 Body height 165.1 cm Julia Gottlieb Ange [facility], Inc.; katena. 12-17-2016 10:36-0400 Body mass index (BMI) [Ratio] 23.96 kg/m2 Julia Gottlieb Ange [facility], Inc.; katena. 12-17-2016 10:36-0400 Body surface area Derived from formula 1.72 m2 Julia Bull Cassidy [facility], Inc.; katena. 12-17-2016 10:36-0400 Body weight 65.32 kg Julia M Ange [facility], Inc.; katena. 12-17-2016 10:36-0400 Diastolic blood pressure 80 mm[Hg] Julia Gottlieb Ange [facility], Inc.; [employer], [employer]. 12-17-2016 10:36-0400 Heart rate 70 /min Julia Gottlieb Ange [facility], Inc.; katena. 12-17-2016 10:36-0400 Systolic blood pressure 133 mm[Hg] Julia Gottlieb Ange [facility] [employer].; katena. 12-02-2016 16:03-0500 Body height 165.1 cm Skyla K Mutersbaugh [facility].; katena. 12-02-2016 16:03-0500 Body mass index (BMI) [Ratio] 22.8 kg/m2 Skyla K Mutersbaugh [facility], Inc.; kat[employer]. 12-02-2016 16:03-0500 Body surface area Derived from formula 1.68 m2 Skyla K Mutersbaugh [employer] [facility], Inc.; [employer], Inc[employer] 12-02-2016 16:03-0500 Body weight 62.14 kg Skyla Soria [employer] [facility], Inc.; [employer], [employer] 12-02-2016 16:03-0500 Diastolic blood pressure 75 mm[Hg] Skyla Marily Gillbaugh [employer] [facility], Inc.; [employer], [employer] 12-02-2016 16:03-0500 Heart rate 69 /min Skyla Gillbaugh [employer] [facility], Inc.; [employer], [employer]. 12-02-2016 16:03-0500 Systolic blood pressure 113 mm[Hg] Skyla Marily Gillbaugh [employer], Inc.; [employer], [employer] 05-24-2015 15:38-0400 Body height 165.1 cm Grace Cornejo [employer] [facility], Inc.; [employer], [employer]. 05-24-2015 15:38-0400 Body mass index (BMI) [Ratio] 21.63 kg/m2 Grace Cornejo [facility], Inc.; [employer], [employer]. 05-24-2015 15:38-0400 Body surface area Derived from formula 1.65 m2 Grace Cornejo [employer] [facility], Inc.; [employer], [employer] 05-24-2015 15:38-0400 Body temperature 98.4 [degF] Grace Cornejo [employer] [facility], Inc.; [employer], [employer] 05-24-2015 15:38-0400 Body weight 58.97 kg Grace Cornejo [employer], Inc.; [employer], [employer]. 05-24-2015 15:38-0400 Diastolic blood pressure 77 mm[Hg] Grace Cornejo [employer], Inc.; [employer], [employer]. 05-24-2015 15:38-0400 Heart rate 60 /min Grace Cornejo [employer]King[employer], Inc.; [employer], [employer]. 05-24-2015 15:38-0400 Systolic blood pressure 119 mm[Hg] rGace Cornejo ROSHNI [employer] [facility], Inc.; [employer], Inc[employer] 05-15-2014 16:05-0400 Body height 165.1 cm Sabiha Wilson LPN [employer], Inc.; [employer], [employer] 05-15-2014 16:05-0400 Body mass index (BMI) [Ratio] 21.47 kg/m2 Sabiha Wilson LPN [employer], Inc.; [employer], [employer] 05-15-2014 16:05-0400 Body surface area Derived from formula 1.64 m2 Sabiha Wilson LPN [employer], [employer].; [employer] 05-15-2014 16:05-0400 Body temperature 98.1 [degF] Sabiha Wilson LPN [employer], Inc.; [employer], [employer] 05-15-2014 16:05-0400 Body weight 58.51 kg Sabiha Wilson LPN [employer]King[employer], Inc.; [employer], [employer] 05-15-2014 16:05-0400 Diastolic blood pressure 73 mm[Hg] Sabiha Wilson [facility] [employer] 05-15-2014 16:05-0400 Heart rate 61 /min Sabiha Wilson LPN [employer], [employer].; [employer] 05-15-2014 16:05-0400 Systolic blood pressure 122 mm[Hg] Sabiha Wilson LPN [employer], Inc.; [employer], [employer] 02-16-2014 16:17-0400 Body height 165.1 cm Grace Cornejo [employer], [employer].; [employer], [employer] 02-16-2014 16:17-0400 Body mass index (BMI) [Ratio] 20.63 kg/m2 Grace Katz [place] [employer] 02-16-2014 16:17-0400 Body surface area Derived from formula 1.61 m2 Grace Katz [place] [employer] 02-16-2014 16:17-0400 Body temperature 98.3 [degF] Grace Cornejo [employer] [facility], Inc.; [employer] 02-16-2014 16:17-0400 Body weight 56.25 kg Grace Cornejo [employer] [facility], Inc.; [employer] 02-16-2014 16:17-0400 Diastolic blood pressure 85 mm[Hg] Grace [facility]jo [facility], Inc.; [employer] 02-16-2014 16:17-0400 Heart rate 60 /min Grace Cornejo [facility], Inc.; [employer] 02-16-2014 16:17-0400 Systolic blood pressure 124 mm[Hg] Grace Cornejo [employer] [facility], Inc.; [employer] 12-06-2013 13:31-0400 Body height 165.1 cm Karly Ochoa LPN [facility], Inc[employer] 12-06-2013 13:31-0400 Body mass index (BMI) [Ratio] 18.89 kg/m2 Karly Ochoa LPN [employer] 12-06-2013 13:31-0400 Body surface area Derived from formula 1.55 m2 Karly Ochoa LPN [employer] [facility], Inc.; [employer] 12-06-2013 13:31-0400 Body temperature 98.9 [degF] Karly Ochoa LPN [facility] [employer], [employer] 12-06-2013 13:31-0400 Body weight 51.48 kg [facility], Inc.; [employer] 12-06-2013 13:31-0400 Diastolic blood pressure 73 mm[Hg] Karly Ochoa LPN [employer] 12-06-2013 13:31-0400 Heart rate 70 /min Karly Ochoa LPN [facility], [facility].; [facility], Inc. 12-06-2013 13:31-0400 Inhaled oxygen concentration 20 % Karly Ochoa LPN [facility], [facility].; [facility], Inc. 12-06-2013 13:31-0400 SaO2% (BldA) [Mass fraction] 99 % Karly Ochoa LPN [facility], Inc.; [employer] [facility], Inc. 12-06-2013 13:31-0400 Systolic blood pressure 104 mm[Hg] Karly Ochoa LPN [facility], Inc.; [facility], [facility]. 12-03-2013 10:54-0500 Body height 165.1 cm Sabiha Wilson LPN [facility], Inc.; [employer] [facility], Inc. 12-03-2013 10:54-0500 Body mass index (BMI) [Ratio] 18.47 kg/m2 Sabiha Wilson LPN [facility], Inc.; [employer] [facility], [facility]. 12-03-2013 10:54-0500 Body surface area Derived from formula 1.54 m2 Sabiha Wilson LPN [facility], Inc.; [employer] [facility], [facility]. 12-03-2013 10:54-0500 Body temperature 98 [degF] Sabiha Wilson LPN [facility], Inc.; [employer] [facility], [facility]. 12-03-2013 10:54-0500 Body weight 50.35 kg Sabiha Wilson LPN [facility], Inc.; [employer] [facility], [facility]. 12-03-2013 10:54-0500 Diastolic blood pressure 83 mm[Hg] Sabiha Wilson LPN [facility], Inc.; [employer] [facility], [facility]. 12-03-2013 10:54-0500 Heart rate 87 /min Sabiha Wilson LPN [facility], Inc.; [employer] 12-03-2013 10:54-0500 Inhaled oxygen concentration 20 % Sabiha Wilson LPN [facility], Inc.; [employer] 12-03-2013 10:54-0500 SaO2% (BldA) [Mass fraction] 99 % Sabiha Wilson LPN [facility], [employer]. 12-03-2013 10:54-0500 Systolic blood pressure 118 mm[Hg] Sabiha Wilson [facility] [employer] [facility], Inc.; [employer]. 12-01-2013 08:59-0500 Body height 165.1 cm Julia M Ange [facility].; [employer]. 12-01-2013 08:59-0500 Body mass index (BMI) [Ratio] 19.14 kg/m2 Julia Gottlieb [facility] Hospital[facility] [employer].; [employer]. 12-01-2013 08:59-0500 Body surface area Derived from formula 1.56 m2 Julia Gottlieb Ange [facility] [employer].; [employer]. 12-01-2013 08:59-0500 Body temperature 99.9 [degF] Julia Gottlieb Ange [facility].; [employer]. 12-01-2013 08:59-0500 Body weight 52.16 kg Julia Gottlieb Ange [facility].; [employer]. 12-01-2013 08:59-0500 Diastolic blood pressure 77 mm[Hg] Julia Gottlieb Ange [facility] Inc.; [employer]. 12-01-2013 08:59-0500 Heart rate 93 /min Julia Gottlieb Ange [facility].; [employer]. 12-01-2013 08:59-0500 Systolic blood pressure 120 mm[Hg] Julia Gottlieb Ange [facility].; [employer]. 07-21-2013 13:50-0400 Body weight 54.43 kg Sabiha Wilson [employer] [facility].; [employer]. 06-27-2013 10:07-0400 Body height 165.1 cm Sabiha Wislon [employer] [facility].; [employer]. 06-27-2013 [id number] Body mass index (BMI) [Ratio] 19.3 kg/m2 Sabiha Wilson LPN [employer] [facility], Inc.; [employer] 06-27-2013 10:07-0400 Body surface area Derived from formula 1.57 m2 Sabiha Crow Wilson LPN [employer] [facility], Inc.; [employer] 06-27-2013 [id number] Body weight 52.62 kg Sabiha Wilson [facility], Inc.; [employer] 06-27-2013 10:[id number] Diastolic blood pressure 80 mm[Hg] Sabiha Crow Wilson [facility], Inc.; [employer] 06-27-2013 10:070400 Heart rate 77 /min Sabiha Wilson [employer] [facility], Inc.; [employer] 06-27-2013 10:[id number] Systolic blood pressure 128 mm[Hg] Sabiha Wilson [facility], Inc.; [employer] 03-09-2013 14:100400 Body height 165.1 cm Sabiha Wilson [facility], Inc.; [employer] 03-09-2013 14:10-0400 Body mass index (BMI) [Ratio] 20.14 kg/m2 Sabiha Wilson [facility], Inc.; [employer] 03-09-2013 14:100400 Body surface area Derived from formula 1.6 m2 Sabiha Wilson [employer] [facility], Inc.; [employer], [employer]. 03-09-2013 14:100400 Body temperature 99.4 [degF] Sabiha Wilson [facility] Inc.; [employer] 03-09-2013 14:100400 Body weight 54.89 kg Sabiha Wilson LPN [employer], [employer]. 03-09-2013 14:10-0400 Diastolic blood pressure 81 mm[Hg] Sabiha Wilson [employer] [facility], Inc.; [facility], [facility]. 03-09-2013 14:10-0400 Heart rate 79 /min Sabiha Wilson [employer] [facility], Inc.; [facility], Inc. 03-09-2013 14:10-0400 Systolic blood pressure 124 mm[Hg] Sabiha Wilson [facility], Inc.; [facility], Inc. 02-24-2013 13:14-0400 Body height 165.1 cm Julia Cassidy [facility], Inc.; [employer] [facility], [facility]. 02-24-2013 13:14-0400 Body mass index (BMI) [Ratio] 20.63 kg/m2 Julia Gottlieb Ange [facility], Inc.; [facility], Inc. 02-24-2013 13:14-0400 Body surface area Derived from formula 1.61 m2 Julia Gottlieb Ange [facility], Inc.; [facility], [facility]. 02-24-2013 13:14-0400 Body weight 56.25 kg Julia Bull Cassidy [facility], [facility].; [facility], [facility]. 02-24-2013 13:14-0400 Diastolic blood pressure 63 mm[Hg] Julia Cassidy [facility], Inc.; [facility], Inc. 02-24-2013 13:14-0400 Heart rate 67 /min Julia Cassidy [facility], Inc.; [facility], [facility]. 02-24-2013 13:14-0400 Systolic blood pressure 112 mm[Hg] Julia Cassidy [employer] [facility], [facility].; [facility], [facility]. 01-26-2013 15:34-0400 Body weight 55.16 kg Sabiha Wilson [facility], Inc.; [facility], Inc. 01-03-2013 15:33-0400 Body weight 55.7 kg Sabiha Wilson [employer] [facility], Inc.; [employer] 12-14-2012 15:45-0400 Body height 152.4 cm Karly Ochoa [employer] [facility], Inc.; [employer] 12-14-2012 15:45-0400 Body mass index (BMI) [Ratio] 23.53 kg/m2 Karly Gabriela BARAKAT [employer] [facility], Inc.; [employer] 12-14-2012 15:45-0400 Body surface area Derived from formula 1.51 m2 Karly Ochoa LPN [employer] [facility], Inc.; [employer] 12-14-2012 15:45-0400 Body weight 54.66 kg Karly Gabriela BARAKAT [employer] [facility], Inc.; [employer] 12-14-2012 15:45-0400 Diastolic blood pressure 82 mm[Hg] Karly Ochoa LPN [employer] [facility], Inc.; [employer] 12-14-2012 15:45-0400 Heart rate 79 /min Karly Ochoa LPN [employer] [facility], Inc.; [employer] 12-14-2012 15:45-0400 Systolic blood pressure 122 mm[Hg] Karly Gabriela BARAKAT [employer] 09-16-2012 13:[id number] Body height 152.4 cm Sabiha Wilson LPN [employer] [facility], Inc.; [employer] 09-16-2012 13:11-0500 Body mass index (BMI) [Ratio] 25.39 kg/m2 Sabiha Wilson LPN [employer] [facility], Inc.; [employer] 09-16-2012 13:11-0500 Body surface area Derived from formula 1.55 m2 Sabiha Wilson LPN [employer] 09-16-2012 13:11-0500 Body weight 58.97 kg Sabiha Wilson LPN [employer] 09-16-2012 13:11-0500 Diastolic blood pressure 66 mm[Hg] Sabiha Wilson LPN [employer] 09-16-2012 13:11-0500 Heart rate 59 /min Sabiha Crow Wilson LPN [employer] [facility], Inc.; [employer] 09-16-2012 13:11-0500 Systolic blood pressure 102 mm[Hg] Sabiha Crow Wilson LPN [employer] [facility], Inc.; [employer] 08-03-2012 10:47-0500 Body height 167.64 cm Sabiha Wilson [employer] [facility], Inc.; [employer] 08-03-2012 10:47-0500 Body mass index (BMI) [Ratio] 21.14 kg/m2 Sabiha Crow Wilson [employer] [facility], Inc.; [employer] 08-03-2012 10:47-0500 Body surface area Derived from formula 1.67 m2 Sabiha Crow Wilson [employer] [facility], Inc.; [employer] 08-03-2012 10:47-0500 Body weight 59.42 kg Sabiha Wilson [employer] [facility], Inc.; [employer] 08-03-2012 10:47-0500 Diastolic blood pressure 76 mm[Hg] Sabiha Crow Wilson [employer] [facility], Inc.; [employer] 08-03-2012 10:47-0500 Heart rate 69 /min Sabiha Wilson [employer] [facility], Inc.; [employer] 08-03-2012 10:47-0500 Systolic blood pressure 125 mm[Hg] Sabiha Wilson LPN [employer] [facility], Inc.; [employer] 07-27-2012 11:27-0400 Body height 167.64 cm Sabiha Crow Wilson [employer], [employer]. 07-27-2012 11:27-0400 Body mass index (BMI) [Ratio] 20.66 kg/m2 Sabiha Crow Wilson LPN [employer] 07-27-2012 11:27-0400 Body surface area Derived from formula 1.65 m2 Sabiha Crow Wilson [employer] 07-27-2012 11:27-0400 Body temperature 97 [degF] Sabiha Wilson LPN [employer] 07-27-2012 11:27-0400 Body weight 58.06 kg Sabiha Wilson LPN [employer] 07-27-2012 11:27-0400 Diastolic blood pressure 75 mm[Hg] Sabiha Wilson LPN [employer] 07-27-2012 11:27-0400 Heart rate 72 /min Sabiha Wilson LPN [employer] 07-27-2012 11:27-0400 Systolic blood pressure 114 mm[Hg] Sabiha Wilson LPN [employer] 07-02-2012 11:01-0400 Body height 167.64 cm Sabiha Wilson LPN [employer] 07-02-2012 11:01-0400 Body mass index (BMI) [Ratio] 21.14 kg/m2 Sabiha Wilson LPN [employer] 07-02-2012 11:01-0400 Body surface area Derived from formula 1.67 m2 Sabiha Wilson LPN [employer] 07-02-2012 11:01-0400 Body weight 59.42 kg Sabiha Wilson LPN [employer] 07-02-2012 11:01-0400 Diastolic blood pressure 74 mm[Hg] Sabiha Wilson LPN [employer], [employer]. 07-02-2012 11:01-0400 Heart rate 67 /min Sabiha Wilson LPN [employer], [employer]. 07-02-2012 11:01-0400 Systolic blood pressure 120 mm[Hg] Sabiha Wilson LPN [employer], [employer]. 05-18-2012 16:53-0400 Body height 167.64 cm Sabiha Wilson [employer] [facility], Inc.; [employer] [facility], [facility]. 05-18-2012 16:53-0400 Body mass index (BMI) [Ratio] 20.82 kg/m2 Sabiha Wilson LPN [facility], Inc.; [employer] 05-18-2012 16:53-0400 Body surface area Derived from formula 1.66 m2 Sabiha Wilson [employer] [facility], Inc.; [employer], [facility]. 05-18-2012 16:53-0400 Body temperature 98.8 [degF] Sabiha Wilson [facility], Inc.; [employer], [employer]. 05-18-2012 16:53-0400 Body weight 58.51 kg Sabiha Wilson [employer] [facility], Inc.; [employer], [employer]. 05-18-2012 16:53-0400 Diastolic blood pressure 76 mm[Hg] Sabiha Wilson [facility], [facility].; [employer], [employer]. 05-18-2012 16:53-0400 Heart rate 77 /min Sabiha Wilson [facility], Inc.; [employer], [employer]. 05-18-2012 16:53-0400 Systolic blood pressure 117 mm[Hg] Sabiha Wilson [facility], Inc.; [employer], [facility]. 04-14-2012 09:43-0400 Body height 167.64 cm Sabiha Wilson LPN [employer] [facility], [facility].; [employer], [employer]. 04-14-2012 09:43-0400 Body mass index (BMI) [Ratio] 21.14 kg/m2 Sabiha Wilson [employer] [facility], Inc.; [employer], [employer]. 04-14-2012 09:43-0400 Body surface area Derived from formula 1.67 m2 Sabiha Wilson [employer] [facility], Inc.; [employer], [employer]. 04-14-2012 09:43-0400 Body temperature 98.5 [degF] Sabihanahomi Wilson LPN [facility], Inc.; [employer] [facility], Inc. 04-14-2012 09:43-0400 Body weight 59.42 kg Sabiha Wilson LPN [facility], Inc.; [employer] [facility], Inc. 04-14-2012 09:43-0400 Diastolic blood pressure 81 mm[Hg] Sabiha Wilson LPN [facility], Inc.; [employer] [facility], Inc. 04-14-2012 09:43-0400 Heart rate 58 /min Sabiha Wilson LPN [facility], Inc.; [employer] 04-14-2012 09:43-0400 Systolic blood pressure 120 mm[Hg] Sabiha Wilson LPN [employer] [facility], Inc.; [employer] [facility], Inc. 02-24-2012 09:46-0400 Body height 167.64 cm Sabiha Wilson [employer] [facility], Inc.; [employer] [facility], Inc. 02-24-2012 09:46-0400 Body mass index (BMI) [Ratio] 20.82 kg/m2 Sabiha Wilson LPN [employer] [facility], Inc.; [employer] 02-24-2012 09:46-0400 Body surface area Derived from formula 1.66 m2 Sabiha Wilson LPN [employer] [facility], Inc.; [employer] 02-24-2012 09:46-0400 Body weight 58.51 kg Sabiha Wilson LPN [facility], Inc.; [employer] 02-24-2012 09:46-0400 Diastolic blood pressure 87 mm[Hg] Sabiha Wilson LPN [employer] [facility], Inc.; [employer] 02-24-2012 09:46-0400 Heart rate 75 /min Sabiha Wilson LPN [employer] [facility], Inc.; [employer] 02-24-2012 09:46-0400 Systolic blood pressure 133 mm[Hg] Sabiha Wilson LPN [employer] [facility], Inc.; [employer] 02-17-2012 09:51-0400 Body height 167.64 cm Julia Cassidy [employer] [facility].; [employer]. 02-17-2012 09:51-0400 Body mass index (BMI) [Ratio] 20.66 kg/m2 Julia Bull Cassidy LPN [employer] [facility], Inc.; [employer] 02-17-2012 09:51-0400 Body surface area Derived from formula 1.65 m2 Julia Bull Cassidy LPN [employer]. 02-17-2012 09:51-0400 Body temperature 98.7 [degF] Julia Bull Cassidy LPN [employer]. 02-17-2012 09:51-0400 Body weight 58.06 kg Julia Bull Cassidy LPN [employer], [employer]. 02-17-2012 09:51-0400 Diastolic blood pressure 76 mm[Hg] Julia Bull Cassidy LPN [employer]. 02-17-2012 09:51-0400 Heart rate 63 /min Julia Bull Cassidy LPN [employer]. 02-17-2012 09:51-0400 Systolic blood pressure 125 mm[Hg] Julia Bull Cassidy LPN [employer] 12-02-2011 15:41-0500 Body weight 61.69 kg Julia Bull Cassidy LPN [employer]. 12-02-2011 15:41-0500 Diastolic blood pressure 66 mm[Hg] Julia Bull Cassidy LPN [employer], [employer]. 12-02-2011 15:41-0500 Heart rate 61 /min Julia Cassidy LPN [employer] 12-02-2011 15:41-0500 Systolic blood pressure 104 mm[Hg] Julia Cassidy LPN [employer]. 10-02-2011 14:44-0500 Body height 167.64 cm Nimco Watson RN Work Phone: [employer] 10-02-2011 14:44-0500 Body mass index (BMI) [Ratio] 21.31 kg/m2 Nimco Watson RN Work Phone: [employer] 10-02-2011 14:44-0500 Body surface area Derived from formula 1.68 m2 Nimco Watson RN Work Phone: [employer].; [employer] 10-02-2011 14:44-0500 Body weight 59.88 kg Nimco Watson RN Work Phone: [employer].; [employer] 10-02-2011 14:44-0500 Diastolic blood pressure 74 mm[Hg] Nimco Watson RN Work Phone: [employer].; [employer] 10-02-2011 14:44-0500 Heart rate 65 /min Nimco Watson RN Work Phone: [employer].; [employer] 10-02-2011 14:44-0500 Systolic blood pressure 117 mm[Hg] Nimco Watson RN Work Phone: [employer].; [employer] Encounters Encounter Date Encounter Type Care Provider Facility Start: 10-26-2023 End: 10-26-2023 Choco KO-C Work Phone: [facility]. Start: 09-29-2023 End: 09-29-2023 Choco Beavers PA-C Work Phone: [facility]. Start: 09-16-2023 End: 09-16-2023 Office outpatient visit 15 minutes Choco Beavers PA-C Work Phone: [facility]. Start: 09-14-2023 End: 09-14-2023 Choco KO-C Work Phone: [facility]. Start: 09-04-2023 End: 09-04-2023 Luke Rtuhann PA-C Work Phone: [facility]. Start: 09-03-2023 End: 09-03-2023 Office outpatient visit 15 minutes Luke Ruthann PA-C Work Phone: [facility]. Start: 09-01-2023 End: 09-01-2023 Luke Ruthann PA-C Work Phone: [facility]. Start: 09-01-2023 End: 09-01-2023 Luke Ruthann PA-C Work Phone: [facility]. Start: 08-26-2023 End: 08-26-2023 Office outpatient visit 25 minutes Luke Ruthann PA-C Work Phone: [facility]. Start: 07-24-2023 End: 07-24-2023 Luke Ruthann PA-C Work Phone: [facility]. Start: 05-01-2023 End: 05-01-2023 Luke Ruthann PA-C Work Phone: [facility]. Start: 03-16-2023 End: 03-16-2023 Office outpatient visit 15 minutes Luke Ruthann PA-C Work Phone: [facility]. Start: 02-06-2023 End: 02-06-2023 Luke Ruthann PA-C Work Phone: [facility]. Start: 01-20-2023 End: 01-19-2023 Luke Ruthann PA-C Work Phone: [facility]. Start: 01-20-2023 End: 01-20-2023 Initial preventive medicine new patient 40-64yrs Luke Ruthann PA-C Work Phone: [facility]. Start: 12-23-2022 End: 12-23-2022 Luke Ruthann PA-C Work Phone: [facility]. Start: 12-17-2022 End: 12-17-2022 Luke Ruthann PA-C Work Phone: [facility]. Start: 12-16-2022 End: 12-16-2022 Office outpatient visit 15 minutes Luke Ruthann PA-C Work Phone: [facility]. Start: 10-10-2022 End: 10-10-2022 Office outpatient visit 15 minutes Luke Ruthann PA-C Work Phone: [facility]. Start: 10-03-2022 End: 10-03-2022 Luke Ruthann PA-C Work Phone: [facility]. Start: 10-01-2022 End: 10-01-2022 Luke Ruthann PA-C Work Phone: [facility]. Start: 09-30-2022 End: 09-30-2022 Luke Ruthann PA-C Work Phone: [facility]. Start: 09-26-2022 End: 09-26-2022 Office outpatient visit 15 minutes Luke Ruthann PA-C Work Phone: [facility]. Start: 09-02-2022 End: 09-02-2022 Luke Ruthann PA-C Work Phone: [facility]. Start: 08-27-2022 End: 08-27-2022 Luke Ruthann PA-C Work Phone: [facility]. Start: 07-25-2022 End: 07-25-2022 Luke Ruthann PA-C Work Phone: [facility]. Start: 07-24-2022 End: 07-24-2022 Luke Ruthann PA-C Work Phone: [employer] Start: 07-15-2022 End: 07-15-2022 Office outpatient visit 15 minutes Luke Ruthann PA-C Work Phone: [employer] Start: 06-23-2022 End: 06-23-2022 Office outpatient visit 15 minutes Luke Ruthann PA-C Work Phone: [employer] Start: 06-23-2022 End: 06-23-2022 Luke Ruthann PA-C Work Phone: [employer] Start: 06-03-2022 End: 06-03-2022 Office outpatient visit 25 minutes Luke Ruthann PA-C Work Phone: [employer] Start: 05-19-2022 End: 05-19-2022 Luke Ruthann PA-C Work Phone: [employer] Start: 05-10-2022 End: 05-10-2022 ambulatory GINO PA-C [facility] Start: 05-09-2022 End: 05-09-2022 Ariannake Ruthann PA-C Work Phone: [employer] Start: 05-09-2022 Refill Alexandra Killian MD Work Phone: [facility] Procedures Date Procedure Procedure Detail Performing Clinician Start: 07-24-2023 End: 07-24-2023 Flu immunize order/admin Lufabián E Aaliyahet ler PA-C Work Phone: Start: 05-01-2023 End: [...] MA Start: 09-30-2022 End: 10-01-2022 Chest x-ray Ginolucy Kidd PA-C Work Phone: Start: 07-24-2022 End: 07-24-2022 Flu immunize order/admin Gino J Kidd PA-C Work Phone: Start: 04-30-2022 End: 04-30-2022 Screening colonoscopy Joyce Peaceabdiel BAH Start: 03-04-2022 End: 03-04-2022 Depression screening Gino J Kidd PA-C Work Phone: Start: 03-04-2022 End: 03-04-2022 Pos clin depres scrn f/u doc Gino J B geno PA-C Work Phone: Start: 03-04-2022 End: 03-04-2022 Scr dep neg, no plan reqd Gino J Kidd PA-C Work Phone: Start: 11-26-2021 End: 11-26-2021 Screening mammography Joyce Peaceabdiel BAH Start: 07-17-2021 End: 07-17-2021 Depression screening Gino J Kidd PA-C Work Phone: Start: 07-17-2021 End: 07-17-2021 Scr dep neg, no plan reqd Gino Angelica Kidd PA-C Work Phone: Start: 02-08-2021 End: 02-08-2021 Depression screening Tanner Kramer MD Work Phone: Start: 02-08-2021 End: 02-08-2021 Scr dep neg, no plan reqd Tanner Kramer MD Work Phone: Start: 01-29-2021 Adult depression scr eening assessment Alexandra Killian MD Work Phone: Start: 09-26-2020 End: 11-05-2020 Radiologic exam chest 2 views Tanner Kramer MD Work Phone: Start: 06-29-2020 End: 06-29-2020 Flu immunize order/admin Tanner Winchester Work Phone: Start: 11-24-2019 Colonoscopy Alexandra valladares MD Work Phone: Start: 08-15-2019 End: 08-18-2019 Radex foot complete minimum 3 views Mckenna Mathiasmiguel [employer]OO[employer] HEL[employer] Start: 12-16-2018 End: 12-16-2018 Depression screening Tanner [...] 08-13-2017 End: 08-21-2017 TTE w or wo Girish egan MD Work Phone: Start: 08-13-2017 End: 08-13-2017 [...] facial bones complete minimum 3 views Elo Nina MD Work Phone: Start: 12-28-2011 End: 12-28-2011 Cholecystectomy Joyce Keating MA Start: 09-28-[address] JASPER GOMEZ MD Cholecystectomy DR JASPER GOMEZ MD Dilation and curetta ge of uterus DR JASPER GOMEZ MD Plan of Treatment Date Care Activity Detail Author Start: 03-03-2025 DIABETES SCREEN DIABETES SCREEN [facility] Start: 11-24-2024 Colonoscopy COLONOSCOPY [facility] Start: 11-24-2024 COLORECTAL CANCER SCREENING COLORECTAL CANCER SCREENING [facility] Start: 01-20-[address] [facility] Start: 09-29-2023 25 hydroxy includes fractions if performed [facility]; [employer] Start: 09-29-2023 Lipid panel [employer]; [employer] Start: 08-26-2023 Radiologic exam abdomen 3+ views [employer]; [employer] Start: 05-29-2022 Influenza vaccination INFLUENZA (#1) [facility] Start: 01-29-2022 Adult depression screening assessment DEPRESSION SCREENING [facility] Start: 2021 COLOGUARD (FIT-DNA) COLOGUARD (FIT-DNA) [facility] Start: [address] COLONOGRAPHY [facility] Start: 2021 DIABETES SCREEN DIABETES SCREEN [facility] Start: 2021 FECAL OCCULT BLOOD FECAL OCCULT BLOOD [facility] Start: 2021 LIPID SCREEN LIPID SCREEN [facility] Start: 2021 SIGMOIDOSCOPY SIGMOIDOSCOPY [facility] Start: 06-25-2021 End: 07-08-2021 Ct abdomen & pelvis w/contrast material [employer]; [employer] Start: 05-29-2021 Influenza vaccination INFLUENZA (#1) [facility] Start: 11-05-2017 Mammography MAMMOGRAM [facility] Start: 08-26-2017 End: 08-26-2017 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 [facility] Work Phone: Start: 08-26-2017 End: 08-26-2017 Follow Up Appt Other Follow Up Appt Other [facility] Work Phone: Start: 08-26-2017 End: 08-26-2017 Appointment Appointment [facility] Work Phone: Start: 08-18-2017 End: 08-24-2017 Cardiovascular stress test using treadmill Treadmill stress test (no imaging) [employer] Work Phone: Start: 1995 SHINGRIX VACCINE (1 of 2) SHINGRIX VACCINE (1 of 2) [facility] Start: 1995 Urine microalbumin profile DTAP,TDAP,TD (1 - Tdap) [facility] Start: 1994 HEPATITIS C SCREENING HEPATITIS C SCREENING [facility] Start: 1994 HIV SCREENING HIV SCREENING [facility] Start: 1988 COVID-19 VACCINE (1) COVID-19 VACCINE (1) [facility] Start: 1982 PNEUMOCOCCAL (1 - PCV) PNEUMOCOCCAL (1 - PCV) [facility] Start: 04-28-1977 COVID-19 VACCINE (#1) COVID-19 VACCINE (#1) [facility] Start: 1976 HEPATITIS B (1 of 3 - 3-dose series) HEPATITIS B (1 of 3 - 3-dose series) [facility] [employer]. Immunizations Immunization Date Immunization Notes Care Provider Guillermo cowan 07-24-2023 influenza, injectabl e, quadrivalent, preservative free Luke Ruthann PA-C Work Phone: [facility] 07-25-2022 Choco Jayle r PA-C Work Phone: [facility] 07-24-2022 influenza, injectabl e, quadrivalent, contains preservative Luke Ruthann PA-C Work Phone: [facility] 06-29-2020 influenza, injectabl e, quadrivalent, contains preservative Luke Ruthann PA-C Work Phone: [facility] 01-11-2019 tetanus toxoid, reduced diphtheria toxoid, and acellular pertussis vaccine, adsorbed Luke Ruthann PA-C Work Phone: [facility].; [facility] 07-25-2016 influenza virus vaccine, unspecified formulation Alexandra Killian MD Work Phone: [facility] 07-21-2013 influenza, seasonal, injectable Luke Ruthann PA-C Work Phone: [facility].; [facility] 08-31-2009 hepatitis B vaccine, adult dosage Luke Ruthann PA-C Work Phone: [facility].; [facility] 05-31-2009 hepatitis B vaccine, adult dosage Luke Ruthann PA-C Work Phone: [facility].; [facility] 04-30-2009 hepatitis B vaccine, adult dosage Luke Ruthann PA-C Work Phone: [facility].; [facility] 04-30-2009 tetanus toxoid, reduced diphtheria toxoid, and acellular pertussis vaccine, adsorbed Luke Ruthann PA-C Work Phone: [facility].; [facility] 05-15-1989 measles, mumps and rubella virus vaccine Luke Ruthann PA-C Work Phone: [facility].; [facility] 12-09-1981 diphtheria, tetanus toxoids and acellular pertussis vaccine, 5 pertussis antigens Luke Ruthann PA-C Work Phone: [facility].; [facility] 12-09-1981 poliovirus vaccine, inactivated Luke Ruthann PA-C Work Phone: [facility].; [facility] 04-12-1978 diphtheria, tetanus toxoids and acellular pertussis vaccine, 5 pertussis antigens Luke Ruthann PA-C Work Phone: [facility].; [facility]. 04-12-1978 measles, mumps and rubella virus vaccine Luke Ruthann PA-C Work Phone: [facility].; [facility]. 04-12-1978 poliovirus vaccine, inactivated Luke Ruthann PA-C Work Phone: [facility].; [facility] 02-15-1977 diphtheria, tetanus toxoids and acellular pertussis vaccine, 5 pertussis antigens Luke Ruthann PA-C Work Phone: [facility] 02-15-1977 poliovirus vaccine, inactivated Luke Ruthann PA-C Work Phone: [facility].; [facility] 01-10-1977 diphtheria, tetanus toxoids and acellular pertussis vaccine, 5 pertussis antigens Luke Ruthann PA-C Work Phone: [facility]. 1976 diphtheria, tetanus toxoids and acellular pertussis vaccine, 5 pertussis antigens Luke Ruthann PA-C Work Phone: [facility].; [facility]. 1976 poliovirus vaccine, inactivated Luke Ruthann PA-C Work Phone: [facility].; [employer] [facility]. Payers Date Payer Category Payer Unknown [id number] 2003 Medicaid [place] [employer] [place] [employer] [id number] 2003-Present [phone] [place] [address] Medicaid [id number] 2003 Medicaid [place] [id number] 2003-Present [phone] [facility] [address] [place] [address] Medicaid [id number] 1976 Unknown [id number] [id number] 1976 Unknown [id number] 2.16.840.1.230814.3.579.2.65 1976 Unknown [id number] 2.16.840.1.666174.3.579.2. 1976 Unknown [id number] 2.16.840.1.381616.3.579.2. 1976 Unknown [id number] 2.16.840.1.181197.3.579.2. 1976 Unknown [id number] 2.16.840.1.281044.3.579.2. 1976 Unknown [id number] 2.16.840.1.301743.3.579.2. 1976 Unknown [id number] 2.16.840.1.758020.3.579.2. 1976 Unknown [id number] 2.16.840.1.502361.3.579.2. 1976 Unknown [id number] 2.16.840.1.788289.3.579.2. 1976 Unknown [id number] 2.16.840.1.752326.3.579.2. 1976 Unknown [id number] 2.16.840.1.355002.3.579.2. 1976 Unknown [id number] 2.16.840.1.491662.3.579.2 1976 Unknown [id number] 2.16.840.1.041339.3.579.2.651 1976 Unknown [id number] 2.16.840.1.347780.3.579.2.651 1976 Unknown [id number] 2.16.840.1.092936.3.579.2.651 1976 Unknown [id number] 2.16.840.1.982757.3.579.2.65 1976 Unknown [id number] 2.16.840.1.213106.3.579.2.651 1976 Unknown [id number] 2.16.840.1.466772.3.579.2.651 1976 Unknown [id number] 2.16.840.1.227463.3.579.2.651 1976 Unknown [id number] 2.16.840.1.972592.3.579.2.65 Unknown [id number] Social History Date Type Detail Facility Start: 07-31-2021 Never smoked t obacco (finding) [facility] Sex Assigned At Female [facility] Start: 09-19-2021 Alcohol intake 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 Never smoker. [facility] Clinical Notes 06-15-2010 to 05-09-2022 [...] Pam Navas Ma documented in this encounter [facility] 12-16-2021 Miscellaneous Notes Patient phones requesting refills as follows: Pending Prescriptions Disp Refills FAMOTIDINE 40 MG TABLET 180 tablet 1 Sig: TAKE 1 TABLET BY MOUTH TWICE A DAY VINCENT: Yes Please review and advise. Pam Navas Ma documented in this encounter [facility] 08-01-2021 Evaluation + Plan note Future Scheduled TestsXR Upper GI 08/01/21 [facility] 08-01-2021 Evaluation + Plan note Future Appointments Future Scheduled TestsXR Upper GI 08/01/21 [facility] 07-31-2021 Note HNO ID: [id number] Author: PATRICIO Olvera Service: Nuclear Medicine Author Type: Clinical Hand Inserter Operator Type: Progress Notes Filed: 07/31/2021 9:31 AM [...] [address] PERFORMED: No IV SITE: DE only - not applicable, oral or physician administered agents given to patient POST EXAM PIV STATUS: Not applicable PROCEDURE TYPE: NM GET: 1.1 mCi Tc99m SULFUR COLLOID was administered orally via 4 ounces of Egg Beaters,1 pieces of toast, .5 ounce of jelly with 6 ounces of water orally ADMINISTRATION TIME: 07:25 PATIENT DISCHARGED TO: Ambulatory patient, left [place] department area. A Diagnostic radioactive procedure has taken place, with no further precautions necessary other than routine body substance precautions. More information regarding radiation safety can be found using this link: [email or web address] SIGNATURE: PATRICIO Olvera PATIENT NAME: Carol Grissom DATE: July 31, 2021 TIME: 9:08 AM PAGER/CONTACT #: [facility] documented as of this encounter (statuses as of 12/17/2021) [facility]09[facility]2010 History of Past illness Narrative* Problem Noted Date Resolved Date Primary focal hyperhidrosis 06/15/201005/29 Acne Vulgaris: Inflammatory Grade II 06/15/2010 06/15/2010 documented as of this encounter (statuses as of 05/09/2022) [facility] Diagnosis Epigastric abdominal pain Abdominal pain, epigastric [facility] Diagnosis Epigastric abdominal pain Abdominal pain, epigastric [facility] N[facility] No data available for this section [facility] Hospital Discharge instructions No data available for this section [facility] Progress note No data available for this section [facility] Summary Purpose Family History Breast cancer [...] Documents on File Type Date Recorded 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 Expl anation Advance Directive(s) 04/19/2021 10:05 AM Additional Source Comments INFORMATION SOURCE (unrecogn ized section and content) DATE CREATED AUTHOR AUTHOR'S ORGANIZ ATION 08/01/2021 [facility] DATE CREATED AUTHOR AUTHOR'S ORGANIZ ATION 05/26/2022 [facility] DATE CREATED AUTHOR AUTHOR'S ORGANIZ ATION 01/04/2023 [facility] DATE CREATED AUTHOR AUTHOR'S ORGANIZ ATION 03/19/2023 [facility] Source Comments (unrecognize d section and content) In the event this informatio n is protected by the Federal Confidentiality of Alcohol and Drug Abuse Patient Records regulations: The Federal rules restrict any use of the information to criminally investigate or prosecute any alcohol or drug abuse patient.[facility] the event this information is protected by the Federal Confidentiality of Alcohol and Drug Abuse Patient Records regulations: The Federal rules restrict any use of the information to criminally investigate or prosecute any alcohol or drug abuse patient.[facility] Reason for Visit (unrecogniz ed section and content) Care Teams (unrecognized sec tion and content) Filing Or Registry Clerk Relationship Specialty Start Date End Date Gino Kidd [address] [place] [address] [place] [address] PCP - General Family Practice 04/19/21 FOR [...] BE BASED ON THE PRIMARY CLINICAL RECORDS. [employer] [facility]. provides no warranty or guarantee of the accuracy or completeness of information in this document.
--- NOTE | 2023-11-15 11:28 | PCM.HP.STD ---
[facility] - General General Date of Admission: 11/15/23 Date of Service: 11/15/23 Chief Complaint: left visual loss. [facility] Narrative DERICK SCHUSTER, is a 48 F who presents with left vision loss. Began acutely today where vision was blurry in left eye. Associated with lines in the periphery. Developed left hand weakness. Visual symptoms and weakness resolved. Followed by posterior headache. Had a history of migraines in the past, but none like this. [facility] Medical History Anemia Anxiety Anxiety Arthritis Back pain Cardiology follow-up encounter COVID-19 virus detected (10/01/20) Fatigue Fibromyalgia Gastric reflux Genetic testing of female GERD (gastroesophageal reflux disease) Hair loss Herpes labialis History of echocardiogram History of hiatal hernia History of stress test History of TIA (transient ischemic attack) (11/25/20) Hyperlipidemia IBS (irritable bowel syndrome) Inflammatory polyarthritis Instability of left patellofemoral joint Iron deficiency Left knee pain Leukopenia Migraine headache Non-smoker Patent foramen ovale Post-menopausal Rash Rheumatoid arthritis Rib injury Stiffness of left knee TIA (transient ischemic attack) Vision changes Vitamin A deficiency Wears glasses Home Medications acyclovir 400 mg tablet 400 mg PO DAILY PRN cold sore 04/07/16 [History Last Taken 08/15/17] alprazolam 0.5 mg tablet 0.5 mg PO DAILY 04/07/16 [History Last Taken 08/15/17] loperamide 2 mg capsule 4 mg PO DAILY diarrhea 04/07/16 [History Last Taken 08/15/17] leflunomide 10 mg tablet 10 mg PO DAILY RA 11/25/20 [History Last Taken Unknown] ibuprofen 600 mg tablet 600 mg PO Q6H PRN Pain 04/23/22 [History Last Taken Unknown] aspirin 81 mg tablet,delayed release (Adult Aspirin Regimen) 81 mg PO DAILY #90 tabs 03/18/23 [Rx Last Taken Unknown] cholecalciferol (vitamin D3) 25 mcg (1,000 unit) capsule 5,000 unit PO DAILY 06/05/23 [History Last Taken Unknown] gabapentin 300 mg capsule 300 mg PO QHS PRN pain, mild 06/05/23 [History Last Taken Unknown] lorazepam 1 mg tablet (Ativan) 1 mg PO DAILY PRN anxiety #1 TAB 06/12/23 [Rx Last Taken Unknown] fluticasone propionate 50 mcg/actuation nasal spray,suspension (Flonase Allergy Relief) 2 spray intranasal DAILY #16 grams 06/17/23 [Rx Last Taken Unknown] triamcinolone acetonide 55 mcg nasal spray aerosol (Nasacort Allergy) 2 spray intranasal DAILY #16.9 mL 06/17/23 [Rx Last Taken Unknown] pantoprazole 40 mg tablet,delayed release (Protonix) 40 mg PO BID #60 tabs 07/16/23 [Rx Last Taken Unknown] azithromycin 250 mg tablet 250 mg PO QDAY #12 tabs 08/17/23 [Rx Last Taken Unknown] fluconazole 200 mg tablet 200 mg PO DAILY #2 tabs 08/24/23 [Rx Last Taken Unknown] dicyclomine 10 mg capsule 10 mg PO TID PRN abdominal cramping #30 caps 09/03/23 [Rx Last Taken Unknown] ondansetron 4 mg disintegrating tablet 4 mg PO Q8H PRN PRN Nausea #14 tabs 09/03/23 [Rx Last Taken Unknown] prednisone 20 mg tablet 20 mg PO DAILY #7 tabs 09/03/23 [Rx Last Taken Unknown] budesonide 3 mg capsule,delayed,extended release 6 mg (2 x 3 mg) PO DAILY #60 ea 09/25/23 [Rx Last Taken Unknown] cetirizine 10 mg tablet 10 mg PO DAILY 11/15/23 [History Last Taken Unknown] cholecalciferol (vitamin D3) 125 mcg (5,000 unit) tablet 125 mcg PO DAILY 11/15/23 [History Last Taken Unknown] Allergy/AdvReac Type Severity Reaction Status Date / Time morphine Allergy Other Verified 09/18/23 07:26 bacitracin AdvReac Rash Verified 09/18/23 07:26 [From Neosporin ([id number])] metoclopramide [From Reglan] AdvReac Other Verified 09/18/23 07:26 metronidazole [From Flagyl] AdvReac Nausea Verified 09/18/23 07:26 neomycin AdvReac Rash Verified 09/18/23 07:26 [From Neosporin ([id number])] polymyxin B AdvReac Rash Verified 09/18/23 07:26 [From Neosporin ([id number])] sucralfate [From Carafate] AdvReac Nausea Verified 09/18/23 07:26 Family History (Updated 11/15/23 @ 11:[address] Ben Burris DO) Grandmother Uterine cancer Uncle Lung cancer Grandmother No problems noted. Grandfather Prostate cancer Sister Migraine Surgical History H/O LEEP History of cholecystectomy History of hysterectomy History of right salpingo-oophorectomy History of tonsillectomy Hx of foot surgery Social History household members: family current occupational status: employed current occupation: [employer] current occupational exposures/hazards: No pets and animals: No sexually active: Yes Smoking Status: Never smoker alcohol intake: never substance use type: does not use caffeine: Yes seatbelt use: always ROS ROS Narrative All review of systems were negative except as mentioned above in the history of present illness and the other review of systems. Vital Signs Vital Signs Vital Signs: 11/15/23 09:57 11/15/23 09:57 11/15/23 09:57 Temperature 36.6 C Temperature Source Temporal Pulse Rate 93 92 Respiratory Rate 14 14 Blood Pressure 194/90 H 194/90 H Blood Pressure Mean 124 124 Pulse Ox 99 99 Oxygen Delivery Method Room Air Room Air Room Air 11/15/23 09:57 11/15/23 09:55 11/15/23 10:16 Temperature 36.6 C Temperature Source Temporal Pulse Rate 93 93 85 Respiratory Rate 14 16 16 Blood Pressure 194/90 H 199/102 H 158/79 H Blood Pressure Mean 124 134 105 Pulse Ox 99 99 99 Oxygen Delivery Method Room Air Room Air 11/15/23 10:27 11/15/23 10:30 11/15/23 11:00 Temperature Temperature Source Pulse Rate 87 87 85 Respiratory Rate 14 14 14 Blood Pressure 144/81 H 155/85 H 157/87 H Blood Pressure Mean 102 108 110 Pulse Ox 99 99 99 Oxygen Delivery Method Room Air Room Air Room Air Weight Weight: 75.9 kg Body Mass Index (BMI) 27.0 Physical Exam Narrative - Physical Exam General: Alert, Oriented x3, Cooperative HEENT: Atraumatic, PERRLA, EOMI, Normocephalic. Visual ma intact. Oral: Moist Mucosa, No Gingival or Mucosal Lesions/ Ulcerations Neck: Supple, No JVD, Negative Carotid Bruits Lungs: Clear to auscultation, Normal air movement Cardiovascular: Regular rate, Normal S1, Normal S2, No murmurs Abdomen: Bowel Sounds Present, Soft, Non Tender, Non-Distended, No Hepato-splenomegaly Extremities: No clubbing, No cyanosis, No edema, Capillary Refill Less than 3 Seconds Skin: No rashes, No breakdown Musculoskeletal: No Tenderness to Palpation of Joints or Extremities Neurological: Neuro grossly intact. Cranial nerves II through XII grossly intact. Muscle strength 5-5 in upper and lower extremities bilaterally. Finger-nose and [id number] are within normal limits. Psych/Mental Status: Normal Affect, Appropriate Results Lab / Micro Data 11/15/23 10:13 11/15/23 10:13 Labs: Laboratory Results - last 24 hr 11/15/23 10:13: WBC 6.8, RBC 4.54, Hgb 12.6, Hct 41.0, MCV 90.3, MCH 27.8, MCHC 30.7 L, RDW Std Deviation 48.2 H, RDW Coeff of Milla 14.5, Plt Count 253, MPV 11.6, Immature Gran % (Auto) 0.100, Neut % (Auto) 56.9, Lymph % (Auto) 32.5, [place] % (Auto) 7.3, Eos % (Auto) 2.5, Baso % (Auto) 0.7, Absolute Neuts (auto) 3.9, Absolute Lymphs (auto) 2.21, Nucleated RBC % 0, PT 12.6, INR 0.9, APTT 30.8, Sodium 140, Potassium 3.6, Chloride 106, Carbon Dioxide 28.0, Anion Gap 6, BUN 14, Creatinine 0.85, Estim Creat Clear Calc 85.17, Est GFR (MDRD) Af Amer 92, Est GFR (MDRD) Non-Af 76, BUN/Creatinine Ratio 16.4, Glucose 92, Calcium 9.5, Troponin I High Sens 4 Imaging Radiology Impression Brain CT 11/15/23 09:57 IMPRESSION: 1. No acute intracranial abnormality. 2. Aspect score 10. Electronically Signed: Shan Lopez MD at 10:23 EST Reading Location ID and State: [facility] / [place] Tel , Service support , ADDENDUM: 11/15/23 1032 IMPRESSION: 1. No acute intracranial abnormality. 2. Aspect score 10. N.B. : The above Results were Read Back by Shan Lopez MD to Diana Muñoz, , and understanding confirmed on 11/15/2023 10:25:26 (ET). Electronically Signed: Shan Lopez MD at 10:23 EST , Chest X-Ray 11/15/23 09:57 IMPRESSION: No acute cardiopulmonary abnormality. No interval change. Electronically Signed: Shan Lopez MD at 10:59 EST Reading Location ID and State: [facility] / [place] Tel , Service support , Head/Neck CTA 11/15/23 09:58 IMPRESSION: Normal CTA Head and CTA Neck Electronically Signed: Shan Lopez MD at 10:35 EST Reading Location ID and State: [facility] / [place] Tel , Service support , ADDENDUM: 11/15/23 1043 IMPRESSION: Normal CTA Head and CTA Neck N.B. : The above Results were Read Back by Shan Lopez MD to Diana Muñoz, , and understanding confirmed on 11/15/2023 10:37:02 (ET). Electronically Signed: Shan Lopez MD at 10:35 EST , Assessment & Plan Assessment/Plan (1) Visual field defect of left eye: PLAN: This was associated with transient left hand weakness. The symptoms resolved and followed by a headache. Patient will be worked up for TIA and stroke but I am thinking that this is actually more but atypical migraine as patient has had a history of migraines. Interestingly, the patient's sister was in the room and states that she would get the exact same symptoms of left visual field loss as well as hand numbness and then would develop a headache. Will have the patient undergo an MRI, 2D echocardiogram, therapy evaluations and then neurology consultation. Patient does not recall back in 2020 when she had a visual field change if she had an associated headache at that time. Her MRI at that time was negative. PLAN: Plan VTE prophylaxis: Low risk given observation status. Charges/Coding Visit Charges Inpatient E&M: 68799 Init Hosp L3
--- OUTSIDE RECORDS SUMMARY | 2023-11-15 12:03 | XMS RPT_ITS | CCD ---
Author Name Unknown Address [address] [place] [address] Organization [facility] Care Team Providers Care Hand Iii Cutter Name Role Phone MD Lisa, Isai Cristobal Unavailable Whit RN, Zenaida Good Unavailable Unavailable Betzy RICARDO, Joyce Rabago Unavailable [phone] KIDD PA-C, GINO Angelica Primary Care Physician [phone] Kidd, Gino Primary Care Provider [phone] Kidd, Gino Primary Care Provider [phone] KIDD, GINO PA-C Primary Care Unavailable KIDD, [...] KIDD, GINO PA-C Consulting Unavailable AMICONE GIANNASuellen SANABRIAN-EXPLORATION MANAGER Attending Unavailab le AMICONE, GIANNA WELL DIGGER-EXPLORATION MANAGER Primary Care Unavailab le AMICONE, GIANNA WELL DIGGER-EXPLORATION MANAGER Admitting Unavailab le PROVIDER, UNKNOWN Consulting Unavailable [...] BENJY, DR PEDRO Naranjo Attending Unavaila ble BENYJ, DR PEDRO Naranjo Primary Care Unavaila ble BENJY, DR PEDRO Naran[place] Admitting Unavaila ble KIDD, GINO PA-C Consulting Unavailable PROVIDER, UNKNOWN Consulting Unavailable BENJY, DR PEDRO Naranjo Primary Care Unavaila ble BENJY, DR PEDRO Naranjo Admitting Unavaila ble KIDD, GINO PA-C Consulting Unavailable BENJY, DR PEDRO Naranjo Attending Unavaila ble PROVIDER, UNKNOWN Consulting Unavailable Ruthann PA-C, Ariannake E Unavailable Hematology Provider Unavailable Unavailable [place] Unavailable [facility]ropractic Provider [facility] Unavailable Unavailable Friend, Dr. Valera Unavailable [facility] Unavailable Dany RAMOS, Dr. Brandt Unavailable [phone] Dr. Maureen Monique MD Unavailable Dr. Izzy Yoo DO Unavailable [phone] [facility] Unavailable Dr. Pedro Boggs MD Unavailable Xavier RAMOS, Dr. Leiva Unavailable Rosa RICARDO, Gracie Unavailable Unavailable Stella COIL CONNECTOR, Michelle Unavailable Kidd PA-C, Gino J Unavailable Torin Maldonado MD Unavailable Day COIL CONNECTOR, Pam Unavailable Unavailable Jason COIL CONNECTOR, Aleja E Unavailable Unavailable Airam BAH, Kelly Unavailable Unavailable Gogoi (scribe), Hemanta Unavailable Unavaila ble Kevin COIL CONNECTOR, Annalee Unavailable Unavailable Williams RAMOS, Tanner Good Unavailable Saulo MAHER, Flora Winchester Unavailable Ruthann RN, Mandy Rabago Unavailable Unavail able Akshat COIL CONNECTOR, Joyce Unavailable Unavailable Chip RICARDO, Flora Good Unavailable Unavaila ble Marthey COIL CONNECTOR, Radha Unavailable Unavailable Gerardo COIL CONNECTOR, Cosme Unavailable Unavailable Fredy (Scribe), Brent Unavailable Unavailab edmund Watson RN, Nimco Unavailable [phone] Samantha RICARDO, Shira Love Unavailable Unavailable Garcia COIL CONNECTOR, Radha Unavailable Unavailable Mutersbaugh COIL CONNECTOR, Skyla K Unavailable Unavai shannon Christian PA-C, Kathryn J Unavailable Viktor (Scribe), Alex Unavailable Unavailab le Ribeiro, Gracie L Unavailable Richert COIL CONNECTOR, Jenifer L Unavailable Unavailab le Ange COIL CONNECTOR, Julia M Unavailable Unavailab le Clemente COIL CONNECTOR, Grace Katz Unavailable Unavailab edmund Keating MA, Joyce Unavailable Unavailable Magda RAMOS, Elo Good Unavailable [phone] Vess COIL CONNECTOR, Neilee L Unavailable Unavailable Wengerd COIL CONNECTOR, Karly Unavailable Unavailabl e Steve COIL CONNECTOR, Sabiha N Unavailable Unavaila ble Zaugg COIL CONNECTOR, Mckenna Unavailable Unavailable Unavailable Unavailable Infectious Disease Provider Unavailable Unav ailable Allergies Allergy Classification Reported Allergen(s) Allergy Type Date of Onset Reaction(s) Facility (6 sources) bacitracin / neomycin / polymyxin b; Translations: [bacitracin / neomycin / polymyxin B] Drug Allergy 7 Eruption of skin (disorder) [facility] Work Phone: (5 sources) metroNIDAZOLE; Translations: [Metronidazole] Drug Allergy 7 Vomiting (disorder) [facility] Work Phone: (8 sources) morphine; Translations: [Morphine] Drug Allergy 5 Headache (finding), Vomiting (disorder), Other: See Comments [facility] Work Phone: (4 sources) Sucralfate; Translations: [sucralfate] Drug Allergy 1 Nausea (finding), GI Upset [facility] (2 sources) bacitracin / neomycin / polymyxin b Drug Allergy [address] [facility] Work Phone: (9 sources) metroNIDAZOLE Drug Allergy [address] [facility] (1 source) 12/08/17 (+) CDIFF; Translations: [12/08/17 (+) CDIFF] Propensity to adverse reactions (disorder) [facility] (1 source) 10/19/2019 (+) CDIFF AG; Translations: [10/19/2019 (+) CDIFF AG] Propensity to adverse reactions (disorder) [facility] (1 source) 11/03/2019 (-) CDIFF; Translations: [11/03/2019 (-) CDIFF] Propensity to adverse reactions (disorder) [facility] (1 source) 08/10/2020 (+) CDIFF AG; Translations: [08/10/2020 (+) CDIFF AG] Propensity to adverse reactions (disorder) [facility] (1 source) 01/24/21 (+) CDIFF AG; Translations: [01/24/21 (+) CDIFF AG] Propensity to adverse reactions (disorder) [facility] (7 sources) Miconazole Drug Allergy [employer] (7 sources) Morphine Drug Allergy [employer], [employer]. NEGATED: Highlighted row has been ruled out! (1 source) 3 [employer].; [employer], [employer]. NEGATED: Highlighted row has been ruled out! (1 source) 3 [employer], [employer].; [employer], [employer]. NEGATED: Highlighted row has been ruled out! (1 source) 3 [employer].; [employer]. NEGATED: Highlighted row has been ruled out! (1 source) 3 [employer].; [employer]. NEGATED: Highlighted row has been ruled out! (1 source) 3 [employer].; [employer]. NEGATED: Highlighted row has been ruled out! (1 source) 3 [employer].; [employer]. NEGATED: Highlighted row has been ruled out! (1 source) 3 [employer].; [employer]. Medications Current Medications Medication Drug Class(es) Dates [...] Body weight 73.48 kg Cosme Carrillo LPN [facility]. 09-16-2023 15:16-0500 Diastolic blood pressure 70 mm[Hg] Cosme Carrillo LPN [facility].; [facility]. 09-16-2023 15:16-0500 Heart rate 87 /min Cosme Gerardo COIL CONNECTOR [facility].; [facility]. 09-16-2023 15:16-0500 Systolic blood pressure 115 mm[Hg] Cosme Carrillo LPN [facility].; [facility]. 09-03-2023 13:37-0500 Body temperature 96.5 [degF] Cosme Carrillo LPN [facility]. 09-03-2023 13:37-0500 Body weight 72.58 kg Cosme Carrillo COIL CONNECTOR [facility].; [facility]. 09-03-2023 13:37-0500 Inhaled oxygen concentration 20 % Cosme Carrillo COIL CONNECTOR [facility].; [facility]. 09-03-2023 13:37-0500 SaO2% (BldA) [Mass fraction] 96 % Cosme Carrillo COIL CONNECTOR [facility]. 08-26-2023 15:10-0500 Body temperature 97.7 [degF] Cosme Carrillo LPN [facility].; [facility]. 08-26-2023 15:10-0500 Body weight 72.58 kg Cosme Carrillo LPN [facility].; [facility]. 08-26-2023 15:10-0500 Diastolic blood pressure 80 mm[Hg] Cosme Carrillo LPN [facility]. 08-26-2023 15:10-0500 Heart rate 78 /min Cosme Carrillo LPN [facility].; [facility]. 08-26-2023 15:10-0500 Inhaled oxygen concentration 20 % Cosme Carrillo COIL CONNECTOR [facility].; [facility]. 08-26-2023 15:10-0500 SaO2% (BldA) [Mass fraction] 97 % Cosme Gerardo COIL CONNECTOR [facility] [place] [employer] 08-26-2023 15:10-0500 Systolic blood pressure 120 mm[Hg] Cosmesourav Carrillo COIL CONNECTOR [facility].; [facility]. 03-16-2023 15:06-0400 Body temperature 96.1 [degF] Cosme Carrillo ROSHNI [facility].; [facility]. 03-16-2023 15:06-0400 Body weight 68.04 kg Cosme Gerardojuanito BARAKAT [facility]. 03-16-2023 15:06-0400 Diastolic blood pressure 83 mm[Hg] Cosme Gerardojuanito BARAKAT [facility].; [employer] [facility], [facility]. 03-16-2023 15:06-0400 Heart rate 73 /min Cosme Morajuanito BARAKAT [facility].; [facility]. 03-16-2023 15:06-0400 Systolic blood pressure 131 mm[Hg] Cosme Gerardojuanito BARAKAT [facility].; [employer] [facility], [facility]. 01-20-2023 09:15-0400 Body height 168.91 cm Joyce Keating MA [facility].; [facility]. 01-20-2023 09:15-0400 Body mass index (BMI) [Ratio] 22.42 kg/m2 Joyce Keating MA [facility].; [facility]. 01-20-2023 09:15-0400 Body surface area Derived from formula 1.73 m2 Joyce Keating MA [facility].; [facility]. 01-20-2023 09:15-0400 Body weight 63.96 kg Joyce Keating MA [facility].; [employer] [facility], [facility]. 01-20-2023 09:15-0400 Diastolic blood pressure 76 mm[Hg] Joyce Keating MA [facility].; [facility]. 01-20-2023 09:15-0400 Heart rate 59 /min Joyce Keating MA [facility].; [employer], [facility]. 01-20-2023 09:15-0400 Systolic blood pressure 121 mm[Hg] Joyce Keating MA [facility].; [employer] [facility], [facility]. 12-16-2022 13:17-0400 Body height 168.91 cm Joyce Keating MA [facility].; [employer] [facility]. 12-16-2022 13:17-0400 Body mass index (BMI) [Ratio] 21.94 kg/m2 Joyce Keating MA [facility].; [employer] [facility], [facility]. 12-16-2022 13:17-0400 Body surface area Derived from formula 1.72 m2 Joyce Keating MA [facility].; [employer] [facility]. 12-16-2022 13:17-0400 Body weight 62.6 kg Joyce Keating MA [facility].; [employer] [facility]. 12-16-2022 13:17-0400 Diastolic blood pressure 80 mm[Hg] Joyce Keating MA [facility].; [employer] [facility]. 12-16-2022 13:17-0400 Heart rate 71 /min Joyce Keating MA [facility].; [employer] [facility]. 12-16-2022 13:17-0400 Systolic blood pressure 121 mm[Hg] Joyce Keating MA [facility].; [employer]. 10-10-2022 13:28-0500 Body height 168.91 cm Flora Saunders RN [place] [employer] [facility].; [employer] 10-10-2022 13:28-0500 Body mass index (BMI) [Ratio] 21.94 kg/m2 Flora Saunders RN [employer] [employer] [facility].; [employer]. 10-10-2022 13:28-0500 Body surface area Derived from formula 1.72 m2 Flora Saunders RN [place] [employer] [facility].; [employer]. 10-10-2022 13:28-0500 Body temperature 98.5 [degF] Flora Saunders RN [employer] [employer] [facility].; [employer]. 10-10-2022 13:28-0500 Body weight 62.6 kg Flora Saunders RN [place] [employer] [facility].; [employer]. 10-10-2022 13:28-0500 Diastolic blood pressure 81 mm[Hg] Flora [facility]unders RN [facility] [employer] [facility]. 10-10-2022 13:28-0500 Heart rate 72 /min Flora Saunders RN [facility] [employer] [facility]. 10-10-2022 13:28-0500 Inhaled oxygen concentration 20 % Flora Saunders RN [facility].; [facility]. 10-10-2022 13:28-0500 SaO2% (BldA) [Mass fraction] 95 % Flora Saunders RN [facility].; [employer] [employer] [facility]. 10-10-2022 13:28-0500 Systolic blood pressure 120 mm[Hg] Flora Saunders RN [facility].; [place] [employer], [employer]. 09-26-2022 13:06-0500 Body height 168.91 cm Kelly Alegria [facility].; [place] [employer] [facility]. 09-26-2022 13:06-0500 Body mass index (BMI) [Ratio] 22.1 kg/m2 Kelly Alegria MA [facility].; [employer] [employer], [facility]. 09-26-2022 13:06-0500 Body surface area Derived from formula 1.72 m2 Kelly Alegria MA [facility].; [place] [employer] [facility]. 09-26-2022 13:06-0500 Body temperature 97.3 [degF] [facility].; [place] [employer], [facility]. 09-26-2022 13:06-0500 Body weight 63.05 kg Kelly Alegria MA [facility].; [facility] [employer] [facility]. 09-26-2022 13:06-0500 Diastolic blood pressure 92 mm[Hg] Kelly Alegria MA [facility].; [place] [employer], [facility]. 09-26-2022 13:06-0500 Heart rate 65 /min Kelly Alegria [facility].; [place] [employer] [facility]. 09-26-2022 13:06-0500 Inhaled oxygen concentration 20 % Kelly Alegria MA [facility].; [employer] [facility], [employer]. 09-26-2022 13:06-0500 SaO2% (BldA) [Mass fraction] 96 % Kelly Alegria MA [facility].; [employer] 09-26-2022 13:06-0500 Systolic blood pressure 138 mm[Hg] Kelly Alegria MA [facility] [employer] 07-15-2022 13:01-0400 Body height 168.91 cm Ashwini Clemente [facility], [facility].; [employer], [employer]. 07-15-2022 13:01-0400 Body mass index (BMI) [Ratio] 21.94 kg/m2 Ashwini [place] [facility] [employer] 07-15-2022 13:01-0400 Body surface area Derived from formula 1.[address] [facility], [facility].; [employer], [employer]. 07-15-2022 13:01-0400 Body weight 62.[address] [facility] Clemente [facility], [facility].; [employer], [employer]. 07-15-2022 13:01-0400 Diastolic blood pressure 88 mm[Hg] Ashwini Stuckey COIL CONNECTOR [facility] [employer] 07-15-2022 13:01-0400 Heart rate 80 /min Ashwini Clemente COIL CONNECTOR [facility].; [employer], [employer]. 07-15-2022 13:01-0400 Systolic blood pressure 138 mm[Hg] Ashwini [place] COIL CONNECTOR [employer] [employer] [facility] [employer], [employer]. 06-23-2022 14:16-0400 Body height 168.91 cm Flora Saunders RN [employer] [facility], [facility].; [employer], [employer]. 06-23-2022 14:16-0400 Body mass index (BMI) [Ratio] 22.42 kg/m2 Flora [facility]unders RN [facility] [employer] [facility]. 06-23-2022 14:16-0400 Body surface area Derived from formula 1.73 m2 Flora Saunders RN [facility].; [employer] [facility], [facility]. 06-23-2022 14:16-0400 Body temperature 99 [degF] Flora Saunders RN [facility].; [employer] [facility], [facility]. 06-23-2022 14:16-0400 Body weight 63.96 kg Flora Saunders RN [facility].; [employer] [facility]. 06-23-2022 14:16-0400 Diastolic blood pressure 85 mm[Hg] Flora Saunders RN [facility].; [employer] [facility], [facility]. 06-23-2022 14:16-0400 Heart rate 67 /min Flora Saunders RN [facility].; [employer] [facility]. 06-23-2022 14:16-0400 Systolic blood pressure 145 mm[Hg] Flora Saunders RN [place] [employer] [facility].; [facility], [facility]. 06-03-2022 14:16-0400 Body height 168.91 cm Joyce Oden LPN [employer] [employer] [facility], [facility].; [employer] [facility], [facility]. 06-03-2022 14:16-0400 Body mass index (BMI) [Ratio] 22.73 kg/m2 Joyce Oden LPN [place] [employer] [facility].; [employer] [facility], [facility]. 06-03-2022 14:16-0400 Body surface area Derived from formula 1.74 m2 Joyce Oden LPN [place] [employer] [facility].; [facility], [facility]. 06-03-2022 14:16-0400 Body weight 64.86 kg Joyce Oden LPN [place] [employer] [facility], [facility].; [employer], [facility]. 06-03-2022 14:16-0400 Diastolic blood pressure 78 mm[Hg] Joyce Oden LPN [place] [employer] [facility] [employer], [facility]. 06-03-2022 14:16-0400 Heart rate 74 /min Joyce Oden LPN [place] [employer] [facility].; [employer]. 06-03-2022 14:16-0400 Systolic blood pressure 130 mm[Hg] Joyce Oden LPN [facility].; [employer] [facility]. 04-14-2022 08:17-0400 Body height 168.91 cm Flora Saunders RN [employer] [employer] [facility].; [employer]. 04-14-2022 08:17-0400 Body mass index (BMI) [Ratio] 23.37 kg/m2 Flora Saunders RN [facility].; [employer]. 04-14-2022 08:17-0400 Body surface area Derived from formula 1.76 m2 Flora Saunders RN [employer] [employer] [facility].; [employer]. 04-14-2022 08:17-0400 Body temperature 98.2 [degF] Flora Saunders RN [place] [employer] [facility].; [employer]. 04-14-2022 08:17-0400 Body weight 66.68 kg Flora Saunders RN [facility].; [employer]. 04-14-2022 08:17-0400 Diastolic blood pressure 81 mm[Hg] Flora Saunders RN [employer] [facility].; [employer]. 04-14-2022 08:17-0400 Heart rate 71 /min Flora Saunders RN [place] [employer] [facility]; [employer]. 04-14-2022 08:17-0400 Inhaled oxygen concentration 20 % Flora Saunders RN [employer] [facility].; [employer]. 04-14-2022 08:17-0400 SaO2% (BldA) [Mass fraction] 99 % Flora Saunders RN [facility].; [employer]. 04-14-2022 08:17-0400 Systolic blood pressure 122 mm[Hg] Flora Saunders RN [facility].; [employer]. 03-04-2022 08:59-0400 Body height 168.91 cm Joyce Oden LPN [facility].; [employer] [facility], [facility]. 03-04-2022 08:59-0400 Body mass index (BMI) [Ratio] 23.85 kg/m2 Joyce Oden LPN [facility].; [facility]. 03-04-2022 08:59-0400 Body surface area Derived from formula 1.78 m2 Joyce Oden LPN [facility].; [facility]. 03-04-2022 08:59-0400 Body weight 68.04 kg Joyce Oden LPN [facility].; [employer] [employer] [facility], [facility]. 03-04-2022 08:59-0400 Diastolic blood pressure 67 mm[Hg] Joyce Oden LPN [facility].; [employer] [employer] [facility], [facility]. 03-04-2022 08:59-0400 Heart rate 75 /min Joyce Oden LPN [facility].; [employer] [facility], [facility]. 03-04-2022 08:59-0400 Systolic blood pressure 99 mm[Hg] Joyce Oden LPN [facility].; [employer] [facility], [facility]. 07-25-2021 09:01-0400 Body height 168.91 cm Radha Flores LPN [facility].; [employer] [facility], [facility]. 07-25-2021 09:01-0400 Body mass index (BMI) [Ratio] 24.96 kg/m2 Radha Flores LPN [facility].; [employer] [facility], [facility]. 07-25-2021 09:01-0400 Body surface area Derived from formula 1.81 m2 Radha Flores LPN [facility].; [employer] [facility], [facility]. 07-25-2021 09:01-0400 Body weight 71.22 kg Radha Flores LPN [facility].; [employer] 07-25-2021 09:01-0400 Diastolic blood pressure 88 mm[Hg] Radha Flores LPN [facility].; [employer], [facility]. 07-25-2021 09:01-0400 Heart rate 69 /min Radha Flores LPN [facility].; [employer] [facility], [facility]. 07-25-2021 09:01-0400 Systolic blood pressure 122 mm[Hg] Radha Flores LPN [facility].; [employer] [employer] [facility] 07-17-2021 08:33-0400 Body height 168.91 cm Radhamena Flores LPN [facility] [employer] [employer] [facility] 07-17-2021 08:33-0400 Body mass index (BMI) [Ratio] 25.6 kg/m2 [facility]ena [facility], [facility].; [employer] [employer] [facility], [facility]. 07-17-2021 08:33-0400 Body surface area Derived from formula 1.83 m2 Radha Flores LPN [facility] [place] [employer] [employer] [facility] 07-17-2021 08:33-0400 Body weight 73.03 kg Radha Flores LPN [facility].; [employer] [facility] 07-17-2021 08:33-0400 Diastolic blood pressure 71 mm[Hg] Radha Flores LPN [facility].; [place] [employer] [facility]. 07-17-2021 08:33-0400 Heart rate 69 /min Radhamena Flores LPN [facility].; [employer] [facility]. 07-17-2021 08:33-0400 Systolic blood pressure 103 mm[Hg] Radha Flores LPN [facility].; [place] [employer] [facility] 06-25-2021 10:29-0400 Body height 168.91 cm Flora Saunders RN [facility].; [employer]. 06-25-2021 10:29-0400 Body mass index (BMI) [Ratio] 25.28 kg/m2 Flora Saunders RN [facility].; [employer] 06-25-2021 10:29-0400 Body surface area Derived from formula 1.82 m2 Flora Saunders RN [facility].; [place] [employer] 06-25-2021 10:290400 Body temperature 98.4 [degF] Flora Saunders RN [facility].; [facility]. 06-25-2021 10:290400 Body weight 72.12 kg Flora Saunders RN [facility].; [place] [employer] [facility]. 06-25-2021 10:290400 Diastolic blood pressure 79 mm[Hg] Flora Saunders RN [facility].; [place] [employer], [facility]. 06-25-2021 10:29040 Heart rate 73 /min Flora Saunders RN [facility].; [place] [employer] [facility]. 06-25-2021 10:29040 Systolic blood pressure 117 mm[Hg] Flora Saunders RN [facility].; [place] [employer] [facility]. 04-11-2021 08:06-0400 Body height 168.91 cm Joyce Oden LPN [facility].; [place] [employer] [facility]. 04-11-2021 08:06-0400 Body mass index (BMI) [Ratio] 24.01 kg/m2 Joyce Oden LPN [facility].; [place] [employer] [facility]. 04-11-2021 08:06-0400 Body surface area Derived from formula 1.78 m2 Joyce Oden LPN [facility].; [facility]. 04-11-2021 08:06-0400 Body temperature 96.4 [degF] Joyce Oden LPN [facility], [facility].; [place] [employer] [facility]. 04-11-2021 08:06-0400 Body weight 68.49 kg Joyce Oden LPN [facility].; [place] [employer], [facility]. 04-11-2021 08:06-0400 Diastolic blood pressure 80 mm[Hg] Joyce Oden LPN [facility].; [employer], [facility]. 04-11-2021 08:06-0400 Heart rate 76 /min Joyce Oden LPN [facility].; [facility]. 04-11-2021 08:06-0400 Inhaled oxygen concentration 20 % Joyce Oden LPN [facility].; [facility]. 04-11-2021 08:06-0400 SaO2% (BldA) [Mass fraction] 97 % Joyce Oden LPN [facility].; [employer] [facility]. 04-11-2021 08:06-0400 Systolic blood pressure 108 mm[Hg] Joyce Oden LPN [facility].; [employer] [facility]. 03-25-2021 08:05-0400 Body height 168.91 cm Flora Saunders RN [facility].; [place] [employer] [facility]. 03-25-2021 08:05-0400 Body mass index (BMI) [Ratio] 23.85 kg/m2 Flora Saunders RN [facility].; [place] [employer] [facility]. 03-25-2021 08:05-0400 Body surface area Derived from formula 1.78 m2 Flora Saunders RN [place] [employer] [facility].; [employer] [facility]. 03-25-2021 08:05-0400 Body weight 68.04 kg Flora Saunders RN [place] [employer] [facility].; [place] [employer] [facility]. 03-25-2021 08:05-0400 Diastolic blood pressure 82 mm[Hg] Flora Saunders RN [place] [employer] [facility].; [employer] [facility]. 03-25-2021 08:05-0400 Heart rate 68 /min Flora Saunders RN [place] [employer] [facility].; [employer] [facility]. 03-25-2021 08:05-0400 Systolic blood pressure 133 mm[Hg] Flora Saunders RN [place] [employer] [facility].; [employer] [facility]. 02-08-2021 14:01-0400 Body height 168.91 cm Joyce Oden LPN [place] [employer] [facility].; [employer] 02-08-2021 14:01-0400 Body mass index (BMI) [Ratio] 23.69 kg/m2 Joyce Oden LPN [facility].; [employer] [facility]. 02-08-2021 14:01-0400 Body surface area Derived from formula 1.77 m2 Joyce Oden LPN [facility].; [facility]. 02-08-2021 14:01-0400 Body weight 67.59 kg Joyce Oden LPN [facility].; [facility]. 02-08-2021 14:01-0400 Diastolic blood pressure 74 mm[Hg] Joyce Oden LPN [facility].; [facility]. 02-08-2021 14:01-0400 Heart rate 60 /min Joyce Oden LPN [facility].; [facility]. 02-08-2021 14:01-0400 Systolic blood pressure 118 mm[Hg] Joyce Oden LPN [facility].; [place] [employer] [facility]. 01-24-2021 08:54-0400 Body height 168.91 cm Flora Saunders RN [facility].; [employer] [facility]. 01-24-2021 08:54-0400 Body mass index (BMI) [Ratio] 23.37 kg/m2 Flora Saunders RN [place] [employer] [facility].; [employer], [facility]. 01-24-2021 08:54-0400 Body surface area Derived from formula 1.76 m2 Flora Saunders RN [facility].; [employer] [facility]. 01-24-2021 08:54-0400 Body temperature 98.4 [degF] Flora Saunders RN [place] [employer] [facility].; [employer] [facility]. 01-24-2021 08:54-0400 Body weight 66.68 kg Flora Saunders RN [place] [employer] [facility].; [employer], [facility]. 01-24-2021 08:54-0400 Diastolic blood pressure 70 mm[Hg] Flora Saunders RN [place] [employer] [facility].; [employer] [facility]. 01-24-2021 08:54-0400 Heart rate 68 /min Flora Saunders RN [facility].; [employer] [facility]. 01-24-2021 08:54-0400 Systolic blood pressure 102 mm[Hg] Flora Saunders RN [place] [employer] [facility].; [employer]. 12-19-2020 10:41-0400 Body height 168.91 cm Radha Garcia LPN [facility].; [employer]. 12-19-2020 10:41-0400 Body mass index (BMI) [Ratio] 23.21 kg/m2 Radha Garcia LPN [place] [employer] [facility].; [employer] [facility]. 12-19-2020 10:41-0400 Body surface area Derived from formula 1.76 m2 Radha Garcia LPN [place] [employer] [facility].; [employer] [facility]. 12-19-2020 10:41-0400 Body weight 66.23 kg Radha Garcia LPN [place] [employer] [facility].; [employer] [facility]. 12-19-2020 10:41-0400 Diastolic blood pressure 82 mm[Hg] Radha Garcia LPN [place] [employer] [facility].; [employer]. 12-19-2020 10:41-0400 Heart rate 65 /min Radha Garcia LPN [place] [employer] [facility].; [employer] [facility]. 12-19-2020 10:41-0400 Systolic blood pressure 114 mm[Hg] Radha Garcia LPN [place] [employer] [facility].; [employer] [facility]. 11-27-2020 15:09-0500 Body height 168.91 cm Flora Saunders RN [place] [employer] [facility].; [employer]. 11-27-2020 15:09-0500 Body mass index (BMI) [Ratio] 23.53 kg/m2 Flora Saunders RN [place] [employer] [facility].; [employer]. 11-27-2020 15:09-0500 Body surface area Derived from formula 1.77 m2 Flora Saunders RN [place] [employer] [facility].; [employer]. 11-27-2020 15:09-0500 Body weight 67.13 kg Flora Saunders RN [facility].; [place] [employer] [facility]. 11-27-2020 15:09-0500 Diastolic blood pressure 77 mm[Hg] Flora Saunders RN [facility].; [facility]. 11-27-2020 15:09-0500 Heart rate 67 /min Flora Saunders RN [facility].; [place] [employer] [facility]. 11-27-2020 15:09-0500 Systolic blood pressure 129 mm[Hg] Flora Saunders RN [facility].; [facility]. 09-25-2020 09:190500 Body height 168.91 cm Joyce Oden LPN [facility].; [place] [employer] [facility]. 09-25-2020 09:19-0500 Body mass index (BMI) [Ratio] 22.89 kg/m2 Joyce Oden LPN [facility].; [place] [employer] [facility]. 09-25-2020 09:19-0500 Body surface area Derived from formula 1.75 m2 Joyce Oden LPN [facility].; [place] [employer] [facility]. 09-25-2020 09:19-0500 Body temperature 98.6 [degF] Joyce Oden LPN [facility], [facility].; [place] [employer] [facility]. 09-25-2020 09:19-0500 Body weight 65.32 kg Joyce Oden LPN [facility].; [place] [employer] [facility]. 09-25-2020 09:19-0500 Heart rate 66 /min Joyce Oden LPN [facility].; [place] [employer] [facility]. 09-25-2020 09:19-0500 Inhaled oxygen concentration 20 % Joyce Oden LPN [facility].; [place] [employer] [facility]. 09-25-2020 09:19-0500 SaO2% (BldA) [Mass fraction] 98 % Joyce Oden LPN [facility].; [place] [employer], [facility]. 09-18-2020 09:42-0500 Body height 168.91 cm Joyce Oden LPN [facility].; [facility]. 09-18-2020 09:42-0500 Body mass index (BMI) [Ratio] 23.21 kg/m2 Joyce Oden LPN [facility].; [facility]. 09-18-2020 09:42-0500 Body surface area Derived from formula 1.76 m2 Joyce Oden LPN [facility].; [facility]. 09-18-2020 09:42-0500 Body temperature 99 [degF] Joyce Oden LPN [facility], [facility].; [facility]. 09-18-2020 09:42-0500 Body weight 66.23 kg Joyce Oden LPN [facility].; [facility]. 09-18-2020 09:42-0500 Heart rate 77 /min Joyce Oden LPN [facility].; [facility]. 09-18-2020 09:42-0500 Inhaled oxygen concentration 20 % Joyce Oden LPN [facility].; [facility]. 09-18-2020 09:42-0500 SaO2% (BldA) [Mass fraction] 98 % Joyce Oden LPN [facility].; [facility]. 08-14-2020 11:15-0500 Body height 168.91 cm Flora Saunders RN [facility].; [facility]. 08-14-2020 11:15-0500 Body mass index (BMI) [Ratio] 23.85 kg/m2 Flora Saunders RN [facility].; [facility]. 08-14-2020 11:15-0500 Body surface area Derived from formula 1.78 m2 Flora Saunders RN [facility].; [facility]. 08-14-2020 11:15-0500 Body temperature 98.6 [degF] Flora Saunders RN [facility].; [place] [employer] [facility]. 08-14-2020 11:15-0500 Body weight 68.04 kg Flora Saunders RN [place] [employer] [facility] [employer] 08-14-2020 11:15-0500 Diastolic blood pressure 73 mm[Hg] Flora Saunders RN [facility].; [employer] 08-14-2020 11:15-0500 Heart rate 75 /min Flora Saunders RN [facility] [employer] 08-14-2020 11:15-0500 Systolic blood pressure 133 mm[Hg] Flora Saunders RN [facility].; [employer] 08-08-2020 08:10-0500 Body height 168.91 cm Joyce Oden LPN [facility] [employer] 08-08-2020 08:10-0500 Body mass index (BMI) [Ratio] 23.05 kg/m2 Joyce Oden LPN [facility].; [employer] 08-08-2020 08:10-0500 Body surface area Derived from formula 1.75 m2 Joyce Oden LPN [place] [employer] [facility] [employer] 08-08-2020 08:10-0500 Body temperature 98.1 [degF] Joyce Oden LPN [facility] [employer] 08-08-2020 08:10-0500 Body weight 65.77 kg Joyce Oden LPN [place] [employer] [facility] [employer] 08-08-2020 08:10-0500 Diastolic blood pressure 74 mm[Hg] Joyce Oden LPN [place] [employer] [facility], [facility].; [employer] 08-08-2020 08:10-0500 Heart rate 71 /min Joyce Oden LPN [employer] [facility] [employer] 08-08-2020 08:10-0500 Systolic blood pressure 128 mm[Hg] Joyce Oden LPN [employer] [employer] 05-11-2020 08:41-0400 Body height 168.91 cm Joyce Oden LPN [employer], [facility].; [employer]. 05-11-2020 08:41-0400 Body mass index (BMI) [Ratio] 22.89 kg/m2 Joyce Oden LPN [place] [employer] [facility].; [employer] [facility]. 05-11-2020 08:41-0400 Body surface area Derived from formula 1.75 m2 Joyce Oden LPN [place] [employer] [facility], [facility].; [employer] [facility]. 05-11-2020 08:41-0400 Body weight 65.32 kg Joyce Oden LPN [place] [employer] [facility].; [employer] [facility]. 05-11-2020 08:41-0400 Diastolic blood pressure 78 mm[Hg] Joyce Oden LPN [facility].; [employer]. 05-11-2020 08:41-0400 Heart rate 65 /min Joyce Oden LPN [place] [employer] [facility].; [employer]. 05-11-2020 08:41-0400 Systolic blood pressure 113 mm[Hg] Joyce Oden LPN [place] [employer] [facility].; [employer]. 05-04-2020 09:06-0400 Body height 168.91 cm Flora Saunders RN [place] [employer] [facility].; [employer]. 05-04-2020 09:06-0400 Body mass index (BMI) [Ratio] 22.89 kg/m2 Flora Saunders RN [place] [employer] [facility].; [employer]. 05-04-2020 09:06-0400 Body surface area Derived from formula 1.75 m2 Flora Saunders RN [place] [employer] [facility].; [employer]. 05-04-2020 09:06-0400 Body temperature 97.2 [degF] Flora Saunders RN [facility].; [employer]. 05-04-2020 09:06-0400 Body weight 65.32 kg Flora Saunders RN [place] [employer] [facility].; [employer]. 05-04-2020 09:06-0400 Diastolic blood pressure 82 mm[Hg] Flora Saunders RN [employer] [facility].; [employer] [facility]. 05-04-2020 09:06-0400 Heart rate 66 /min Flora Saunders RN [facility].; [employer] [facility]. 05-04-2020 09:06-0400 Systolic blood pressure 117 mm[Hg] Flora Saunders RN [facility].; [employer] 02-13-2020 14:24-0400 Body height 168.91 cm Shira Singh RN [facility].; [employer] [facility]. 02-13-2020 14:24-0400 Body mass index (BMI) [Ratio] 23.69 kg/m2 Shira Singh RN [place] [employer] [facility].; [employer] [facility]. 02-13-2020 14:24-0400 Body surface area Derived from formula 1.77 m2 Shira Singh RN [place] [employer] [facility].; [employer] [facility]. 02-13-2020 14:24-0400 Body weight 67.59 kg Shira Singh RN [place] [employer] [facility].; [employer] [facility]. 02-13-2020 14:24-0400 Diastolic blood pressure 121 mm[Hg] Shira Singh RN [place] [employer] [facility].; [employer] [facility]. 02-13-2020 14:24-0400 Heart rate 73 /min Shira Singh RN [place] [employer] [facility].; [employer] 02-13-2020 14:24-0400 Systolic blood pressure 153 mm[Hg] Shira Singh RN [place] [employer] [facility].; [employer] [facility]. 01-26-2020 08:32-0400 Body height 168.91 cm Flora Saunders RN [place] [employer] [facility].; [employer]. 01-26-2020 08:32-0400 Body mass index (BMI) [Ratio] 23.53 kg/m2 Flora Saunders RN [place] [employer] [facility].; [employer]. 01-26-2020 08:32-0400 Body surface area Derived from formula 1.77 m2 Flora Saunders RN [place] [employer] [facility].; [employer]. 01-26-2020 08:32-0400 Body temperature 98.2 [degF] Flora Saunders RN [facility].; [employer] [facility]. 01-26-2020 08:32-0400 Body weight 67.13 kg Flora Saunders RN [facility].; [employer] 10-21-2019 14:44-0500 Body height 168.91 cm Julia Cassidy LPN [place] [employer] [facility] [employer] 10-21-2019 14:44-0500 Body mass index (BMI) [Ratio] 23.53 kg/m2 Julia Cassidy LPN [employer] [facility] [employer] 10-21-2019 14:44-0500 Body surface area Derived from formula 1.77 m2 Julia Cassidy LPN [employer] [employer] 10-21-2019 14:44-0500 Body weight 67.13 kg Julia Cassidy LPN [employer] [facility].; [employer]. 10-21-2019 14:44-0500 Diastolic blood pressure 73 mm[Hg] Julia Cassidy LPN [employer] [employer] 10-21-2019 14:44-0500 Heart rate 77 /min Julia Cassidy LPN [employer]. 10-21-2019 14:44-0500 Systolic blood pressure 112 mm[Hg] Julia Cassidy LPN [employer] [facility].; [employer]. 10-13-2019 16:02-0500 Body height 168.91 cm Joyce Oden LPN [employer], [facility].; [employer], [employer]. 10-13-2019 16:02-0500 Body mass index (BMI) [Ratio] 23.05 kg/m2 Joyce Oden LPN [employer], [employer]. 10-13-2019 16:02-0500 Body surface area Derived from formula 1.75 m2 Joyce Oden LPN [facility] [employer] 10-13-2019 16:02-0500 Body temperature 98.5 [degF] Joyce Oden LPN [facility] [employer] 10-13-2019 16:02-0500 Body weight 65.77 kg Joyce Oden LPN [facility] [employer] 10-13-2019 16:02-0500 Diastolic blood pressure 110 mm[Hg] Joyce Oden LPN [facility] [employer] 10-13-2019 16:02-0500 Heart rate 71 /min Joyce Oden LPN [facility] [employer] 10-13-2019 16:02-0500 Systolic blood pressure 142 mm[Hg] Joyce Oden LPN [facility] [employer] 09-26-2019 10:40-0500 Body height 168.91 cm Joyce Oden LPN [facility] [employer] 09-26-2019 10:40-0500 Body mass index (BMI) [Ratio] 22.89 kg/m2 Joyce Oden LPN [facility] [employer] 09-26-2019 10:40-0500 Body surface area Derived from formula 1.75 m2 Joyce Oden LPN [facility] [employer] 09-26-2019 10:40-0500 Body weight 65.32 kg Joyce Oden LPN [facility] [employer] 09-26-2019 10:40-0500 Diastolic blood pressure 86 mm[Hg] Joyce Oden LPN [facility] [employer] 09-26-2019 10:40-0500 Heart rate 76 /min Joyce Oden LPN [place] [employer] [facility] [employer] 09-26-2019 10:40-0500 Systolic blood pressure 129 mm[Hg] Joyce Oden LPN [facility] [employer] 08-13-2019 10:23-0500 Body height 168.91 cm Joyce Oden LPN [employer] 08-13-2019 10:23-0500 Body mass index (BMI) [Ratio] 23.05 kg/m2 Joyce Oden LPN [employer] 08-13-2019 10:23-0500 Body surface area Derived from formula 1.75 m2 Joyce Oden LPN [employer] 08-13-2019 10:23-0500 Body weight 65.77 kg Joyce Oden LPN [employer] 08-13-2019 10:23-0500 Diastolic blood pressure 72 mm[Hg] Joyce Oden LPN [employer] 08-13-2019 10:23-0500 Heart rate 70 /min Joyce Oden LPN [employer] 08-13-2019 10:23-0500 Systolic blood pressure 113 mm[Hg] Joyce Oden LPN [employer] 08-03-2019 16:17-0500 Body height 168.91 cm Pam Day [facility] [employer] 08-03-2019 16:17-0500 Body mass index (BMI) [Ratio] 23.21 kg/m2 Pam Day [facility] [employer] 08-03-2019 16:17-0500 Body surface area Derived from formula 1.76 m2 Pam Day [facility] [employer] 08-03-2019 16:17-0500 Body weight 66.23 kg Pam Day [facility] [employer] 08-03-2019 16:17-0500 Diastolic blood pressure 85 mm[Hg] Pam Day [facility] [employer] 08-03-2019 16:17-0500 Heart rate 70 /min Pam Day [facility] [employer] 08-03-2019 16:17-0500 Systolic blood pressure 137 mm[Hg] [facility] [employer] 05-02-2019 11:51-0400 Body height 168.91 cm [facility] [employer] 05-02-2019 11:51-0400 Body mass index (BMI) [Ratio] 22.42 kg/m2 Grace [facility] [employer] 05-02-2019 11:51-0400 Body surface area Derived from formula 1.[address] [facility] [employer] 05-02-2019 11:51-0400 Body weight 63.96 kg Ashwini Stuckey [facility] [employer] 05-02-2019 11:51-0400 Diastolic blood pressure 79 mm[Hg] [facility] [employer] 05-02-2019 11:51-0400 Heart rate 71 /min Grace Cornejo [facility] [employer] 05-02-2019 11:51-0400 Systolic blood pressure 127 mm[Hg] Grace Cornejo [facility] [employer] 12-16-2018 10:44-0400 Body height 168.91 cm Flora Saunders RN [employer], [employer] 12-16-2018 10:44-0400 Body mass index (BMI) [Ratio] 24.32 kg/m2 Flora Saunders RN [employer] 12-16-2018 10:44-0400 Body surface area Derived from formula 1.79 m2 Flora Saunders RN [employer] 12-16-2018 10:44-0400 Body weight 69.4 kg Flora Saunders RN [employer], [facility].; [employer]. 12-16-2018 10:44-0400 Diastolic blood pressure 72 mm[Hg] Flora Saunders RN [place] [employer] [facility].; [employer]. 12-16-2018 10:44-0400 Heart rate 76 /min Flora Saunders RN [place] [employer], [facility].; [employer]. 12-16-2018 10:44-0400 Systolic blood pressure 106 mm[Hg] Flora Saunders RN [place] [employer] [facility].; [employer]. 10-19-2018 11:18-0500 Body height 168.91 cm Skyla K Mutersbaugh [employer].; [employer]. 10-19-2018 11:18-0500 Body mass index (BMI) [Ratio] 24.01 kg/m2 Skyla K Mutersbaugh [employer], [employer].; [employer]. 10-19-2018 11:18-0500 Body surface area Derived from formula 1.78 m2 Skyla K Mutersbaugh [employer], [employer].; [employer]. 10-19-2018 11:18-0500 Body temperature 98.8 [degF] Skyla K Mutersbaugh [employer], [employer].; [employer]. 10-19-2018 11:18-0500 Body weight 68.49 kg Skyla K Mutersbaugh [employer].; [employer]. 10-19-2018 11:18-0500 Diastolic blood pressure 78 mm[Hg] Skyla K Mutersbaugh [employer].; [employer]. 10-19-2018 11:18-0500 Heart rate 77 /min Skyla K Mutersbaugh [employer]. 10-19-2018 11:18-0500 Systolic blood pressure 126 mm[Hg] Skyla K Mutersbaugh [employer].; [employer] 09-13-2018 13:52-0500 Body height 168.91 cm Grace Cornejo [employer] [facility], Inc.; [employer] 09-13-2018 13:52-0500 Body mass index (BMI) [Ratio] 24.48 kg/m2 Grace Cornejo [employer] [facility], Inc.; [employer] 09-13-2018 13:52-0500 Body surface area Derived from formula 1.8 m2 Grace Cornejo [employer] [facility], Inc.; [employer] 09-13-2018 13:52-0500 Body temperature 98 [degF] [facility]ini [facility], Inc.; [employer] 09-13-2018 13:52-0500 Body weight 69.85 kg Grace Cornejo [employer], Inc.; [employer] 09-13-2018 13:52-0500 Diastolic blood pressure 74 mm[Hg] Grace Cornejo [facility] [employer] [facility], Inc.; [employer] 09-13-2018 13:52-0500 Heart rate 73 /min [facility], Inc.; [employer] 09-13-2018 13:52-0500 Systolic blood pressure 130 mm[Hg] Grace Cornejo [employer], Inc.; [employer] 08-31-2018 13:58-0500 Body height 168.91 cm Flora Saunders RN [place] [employer] [facility], Inc.; [employer] 08-31-2018 13:58-0500 Body mass index (BMI) [Ratio] 24.01 kg/m2 Flora Saunders RN [employer], Inc.; [employer] 08-31-2018 13:58-0500 Body surface area Derived from formula 1.78 m2 Flora Saunders RN [employer] [facility], Inc.; [employer] 08-31-2018 13:58-0500 Body temperature 98.8 [degF] Flora Saunders RN [employer], Inc.; [employer] 08-31-2018 13:58-0500 Body weight 68.49 kg Flora Saunders RN [employer] [facility], Inc.; [employer] 08-31-2018 13:58-0500 Diastolic blood pressure 69 mm[Hg] Flora Saunders RN [employer], Inc.; [employer] 08-31-2018 13:58-0500 Heart rate 80 /min Flora Saunders RN [employer] [facility], Inc.; [employer] 08-31-2018 13:58-0500 Systolic blood pressure 106 mm[Hg] Flora Saunders RN [employer], Inc.; [employer] 08-30-2018 12:57-0500 Body height 168.91 cm AshwiniGianna Cornejo LPN [employer] [facility], Inc.; [employer] 08-30-2018 12:57-0500 Body mass index (BMI) [Ratio] 24.01 kg/m2 AshwiniGianna Cornejo LPN [employer], Inc.; [employer] 08-30-2018 12:57-0500 Body surface area Derived from formula 1.78 m2 AshwiniGianna Cornejo LPN [employer], Inc.; [employer] 08-30-2018 12:57-0500 Body temperature 97.7 [degF] AshwiniGianna Cornejo LPN [employer], Inc.; [employer] 08-30-2018 12:57-0500 Body weight 68.49 kg Grace Cornejo LPN [facility], Inc.; [employer] 08-30-2018 12:57-0500 Diastolic blood pressure 84 mm[Hg] Grace Cornejo LPN [employer], Inc.; [employer] 08-30-2018 12:57-0500 Heart rate 67 /min Grace Cornejo LPN [employer], Inc.; [employer] 08-30-2018 12:57-0500 Systolic blood pressure 126 mm[Hg] Grace Cornejo LPN [employer], Inc.; [employer]. 08-23-2018 10:36-0500 Body height 168.91 cm Grace Cornejo [facility], Inc.; [employer], [employer]. 08-23-2018 10:36-0500 Body mass index (BMI) [Ratio] 24.32 kg/m2 Grace Cornejo [facility], Inc.; [employer], [employer]. 08-23-2018 10:36-0500 Body surface area Derived from formula 1.79 m2 Grace Cornejo [facility], Inc.; [employer], [employer]. 08-23-2018 10:36-0500 Body weight 69.4 kg [facility], Inc.; [employer], [employer]. 08-23-2018 10:36-0500 Diastolic blood pressure 72 mm[Hg] Grace [facility], Inc.; [employer], [employer]. 08-23-2018 10:36-0500 Heart rate 79 /min AshwiniGianna Cornejo [facility], Inc.; [employer], [employer]. 08-23-2018 10:36-0500 Systolic blood pressure 111 mm[Hg] Grace [facility], Inc.; [employer], [employer]. 07-01-2018 09:34-0400 Body height 168.91 cm Flora Saunders RN [employer] [facility], Inc.; [employer], [employer]. 07-01-2018 09:34-0400 Body mass index (BMI) [Ratio] 24.32 kg/m2 Flora Saunders RN [facility], [employer].; [employer], [employer]. 07-01-2018 09:34-0400 Body surface area Derived from formula 1.79 m2 Flora Saunders RN [facility], [employer].; [employer], [employer]. 07-01-2018 09:34-0400 Body temperature 98.4 [degF] Flora Saunders RN [employer], [employer].; [employer], [employer]. 07-01-2018 09:34-0400 Body weight 69.4 kg Flora Saunders RN [employer] [facility].; [employer]. 07-01-2018 09:34-0400 Diastolic blood pressure 76 mm[Hg] Flora Saunders RN [place] [employer] [facility].; [employer]. 07-01-2018 09:34-0400 Heart rate 68 /min Flora Saunders RN [place] [employer] [facility] [employer]. 07-01-2018 09:34-0400 Inhaled oxygen concentration 20 % Flora Saunders RN [place] [employer] [facility].; [employer]. 07-01-2018 09:34-0400 SaO2% (BldA) [Mass fraction] 98 % Flora Saunders RN [place] [employer] [facility].; [employer]. 07-01-2018 09:34-0400 Systolic blood pressure 107 mm[Hg] Flora Saunders RN [place] [employer] [facility].; [employer]. 05-20-2018 11:48-0400 Body height 168.91 cm Flora Saunders RN [employer] [facility].; [employer]. 05-20-2018 11:48-0400 Body mass index (BMI) [Ratio] 24.01 kg/m2 Flora Saunders RN [employer] [facility].; [employer]. 05-20-2018 11:48-0400 Body surface area Derived from formula 1.78 m2 Flora Saunders RN [place] [employer] [facility].; [employer]. 05-20-2018 11:48-0400 Body temperature 98.5 [degF] Flora Saunders RN [employer].; [employer]. 05-20-2018 11:48-0400 Body weight 68.49 kg Flora Saunders RN [employer] [facility].; [employer]. 05-20-2018 11:48-0400 Diastolic blood pressure 82 mm[Hg] Flora Saunders RN [employer] [facility].; [employer]. 05-20-2018 11:48-0400 Heart rate 63 /min Flora Saunders RN [facility], Inc.; [employer]. 05-20-2018 11:48-0400 Systolic blood pressure 128 mm[Hg] Flora Saunders RN [place] [employer] [facility], [facility].; [employer] 05-18-2018 09:37-0400 Body height 168.91 cm Annalee Brown [facility] [employer] [facility], Inc.; [employer]. 05-18-2018 09:37-0400 Body mass index (BMI) [Ratio] 23.85 kg/m2 Annalee Brown LPN [place] [employer] [facility], Inc.; [employer], [employer]. 05-18-2018 09:37-0400 Body surface area Derived from formula 1.78 m2 Annalee Brown LPN [place] [employer] [facility], Inc.; [employer], [employer]. 05-18-2018 09:37-0400 Body weight 68.04 kg Annalee Brown LPN [place] [employer] [facility], Inc.; [employer]. 05-18-2018 09:37-0400 Diastolic blood pressure 74 mm[Hg] Annalee Brown LPN [place] [employer] [facility], Inc.; [employer], [employer]. 05-18-2018 09:37-0400 Heart rate 64 /min Annalee Brown LPN [employer], Inc.; [employer], [employer]. 05-18-2018 09:37-0400 Systolic blood pressure 112 mm[Hg] Annalee Bronw LPN [employer], Inc.; [employer]. 02-26-2018 11:37-0400 Body height 168.91 cm Skyla K Mutersbaugh [employer], [facility].; [employer]. 02-26-2018 11:37-0400 Body mass index (BMI) [Ratio] 22.73 kg/m2 Skyla K Mutersbaugh [facility] Inc.; [employer], [employer]. 02-26-2018 11:37-0400 Body surface area Derived from formula 1.74 m2 Skyla K Mutersbaugh [facility] [employer] [facility], Inc.; [employer]. 02-26-2018 11:37-0400 Body weight 64.86 kg Skyla K Mutersbaugh [employer], Inc.; [employer] 02-26-2018 11:37-0400 Diastolic blood pressure 76 mm[Hg] Skyla K Mutersbaugh [employer], Inc.; [employer] 02-26-2018 11:37-0400 Heart rate 68 /min Skyla K Mutersbaugh [employer], Inc.; [employer] 02-26-2018 11:37-0400 Systolic blood pressure 116 mm[Hg] Skyla K Mutersbaugh [employer], Inc.; [employer], [employer] 02-05-2018 12:49-0400 Body height 168.91 cm Alex Rose) [employer] [facility], Inc.; [employer] 02-05-2018 12:49-0400 Body mass index (BMI) [Ratio] 22.26 kg/m2 Alex Rose) [facility], Inc.; [employer] 02-05-2018 12:49-0400 Body surface area Derived from formula 1.73 m2 Alexalisha Rose) [facility], Inc.; [employer], [employer] 02-05-2018 12:49-0400 Body weight 63.5 kg Alex Rose) [employer], [employer].; [employer], [employer] 02-05-2018 12:49-0400 Diastolic blood pressure 80 mm[Hg] Alex Rose) [facility], Inc.; [employer], [employer] 02-05-2018 12:49-0400 Heart rate 66 /min Alex Rose) [employer], Inc.; [employer], [employer]. 02-05-2018 12:49-0400 Systolic blood pressure 108 mm[Hg] Alex Hoang ([place]) [employer], Inc.; [employer], [employer] 12-17-2017 13:48-0400 Body height 168.91 cm Skyla Marily Mutersbaugh [employer], Inc.; [employer]. 12-17-2017 13:48-0400 Body mass index (BMI) [Ratio] 21.62 kg/m2 Skyla K Mutersbaugh [employer], Inc.; [employer], [employer]. 12-17-2017 13:48-0400 Body surface area Derived from formula 1.71 m2 Skyla K Mutersbaugh [employer], Inc.; [employer], [employer] 12-17-2017 13:48-0400 Body weight 61.69 kg Skyla K Mutersbaugh [employer], Inc.; [employer], [employer]. 12-17-2017 13:48-0400 Diastolic blood pressure 80 mm[Hg] Skyla K Mutersbaugh [employer], Inc.; [employer], [employer]. 12-17-2017 13:48-0400 Heart rate 85 /min Skyla K Mutersbaugh [employer], Inc.; [employer], [employer]. 12-17-2017 13:48-0400 Systolic blood pressure 115 mm[Hg] Skyla K Mutersbaugh [employer], Inc.; [employer], [employer]. 12-05-2017 08:49-0500 Body height 168.91 cm Annalee Brown LPN [employer], Inc.; [employer], [employer]. 12-05-2017 08:49-0500 Body mass index (BMI) [Ratio] 22.1 kg/m2 Annalee Brown LPN [employer], Inc.; [employer], [employer]. 12-05-2017 08:49-0500 Body surface area Derived from formula 1.72 m2 Annalee Brown LPN [employer], Inc.; [employer], [employer]. 12-05-2017 08:49-0500 Body temperature 97.8 [degF] Annalee Brown LPN [employer], Inc.; [employer], [employer]. 12-05-2017 08:49-0500 Body weight 63.05 kg Annalee Brown LPN [employer], Inc.; [employer], [employer]. 12-05-2017 08:49-0500 Diastolic blood pressure 66 mm[Hg] Annalee Brown LPN [employer], Inc.; [employer]. 12-05-2017 08:49-0500 Heart rate 66 /min Annalee Brown LPN [employer] [facility], Inc.; [employer], [employer] 12-05-2017 08:49-0500 Systolic blood pressure 107 mm[Hg] Annalee Brown LPN [employer], Inc.; [employer], [employer] 11-30-2017 16:34-0500 Body height 168.91 cm Grace [facility]jo [facility] Inc[facility] [employer], [employer] 11-30-2017 16:34-0500 Body mass index (BMI) [Ratio] 21.94 kg/m2 Ashwini [facility] Inc.; [employer], [employer] 11-30-2017 16:34-0500 Body surface area Derived from formula 1.72 m2 Grace Cornejo [employer], Inc.; [employer], [employer] 11-30-2017 16:34-0500 Body temperature 96.9 [degF] Grace Cornejo [facility] Inc[facility] [employer] 11-30-2017 16:34-0500 Body weight 62.6 kg Grace Cornejo [facility] Inc.; [employer] 11-30-2017 16:34-0500 Diastolic blood pressure 84 mm[Hg] Grace Cornejo [facility] Inc[facility] [employer] 11-30-2017 16:34-0500 Heart rate 76 /min Grace Cornejo [employer], Inc.; [employer], [employer] 11-30-2017 16:34-0500 Systolic blood pressure 122 mm[Hg] Grace Cornejo [facility] Inc[facility] [employer] 11-12-2017 11:22-0500 Body height 168.91 cm Skyla Soria [employer], Inc.; [employer], [employer] 11-12-2017 11:22-0500 Body mass index (BMI) [Ratio] 21.94 kg/m2 Skyla [facility]oria [facility] Inc.; [employer]. 11-12-2017 11:22-0500 Body surface area Derived from formula 1.72 m2 Skyla Marily Mutersbaugh [employer].; [employer]. 11-12-2017 11:22-0500 Body weight 62.6 kg Skyla K Mutersbaugh [employer].; [employer]. 11-12-2017 11:22-0500 Diastolic blood pressure 86 mm[Hg] Skyla K Mutersbaugh [employer].; [employer]. 11-12-2017 11:22-0500 Heart rate 112 /min Skyla Marily Mutersbaugh [employer].; [employer]. 11-12-2017 11:22-0500 Systolic blood pressure 119 mm[Hg] Skyla K Mutersbaugh [employer].; [employer]. 10-19-2017 18:12-0500 Body height 168.91 cm Alex Rose) [place] [employer] [facility], Inc.; [employer]. 10-19-2017 18:12-0500 Body mass index (BMI) [Ratio] 22.26 kg/m2 Alex Rose) [facility], Inc.; [employer] 10-19-2017 18:12-0500 Body surface area Derived from formula 1.73 m2 Alex Rose) [employer], Inc.; [employer]. 10-19-2017 18:12-0500 Body temperature 98.3 [degF] Alex Chiangibjairo) [employer]. 10-19-2017 18:12-0500 Body weight 63.5 kg Alex Rose) [employer], Inc.; [employer] 10-19-2017 18:12-0500 Diastolic blood pressure 90 mm[Hg] Alex Rose) [employer], Inc.; [employer]. 10-19-2017 18:12-0500 Heart rate 81 /min Alex Rose) [facility] Inc.; [employer]. 10-19-2017 18:12-0500 Systolic blood pressure 114 mm[Hg] Alex Rose) [facility], Inc.; [employer], [employer] 10-10-2017 09:29-0500 Body height 165.1 cm Flora Saunders RN [place] [employer] [facility] Inc.; [employer] 10-10-2017 09:29-0500 Body mass index (BMI) [Ratio] 23.13 kg/m2 Flora Saunders RN [place] [employer].; [employer]. 10-10-2017 09:29-0500 Body surface area Derived from formula 1.69 m2 Flora Saunders RN [place] [employer]. 10-10-2017 09:29-0500 Body temperature 97.6 [degF] Flora Saunders RN [place] [employer]. 10-10-2017 09:29-0500 Body weight 63.05 kg Flora Saunders RN [employer].; [employer]. 10-10-2017 09:29-0500 Diastolic blood pressure 78 mm[Hg] Flora Saunders RN [place] [employer] 10-10-2017 09:29-0500 Heart rate 59 /min Flora Saunders RN [employer].; [employer]. 10-10-2017 09:29-0500 Systolic blood pressure 115 mm[Hg] Flora Saunders RN [employer].; [employer]. 08-26-2017 09:19-0500 BMI (Body Mass Index) 22.92 kg/m2 MD Adi Eaton [employer] Work Phone: 08-26-2017 09:19-0500 BP Diastolic 60 mm[Hg] MD Adi [facility]aton [facility] Work Phone: 08-26-2017 09:19-0500 BP Systolic 92 mm[Hg] [facility] Work Phone: 08-26-2017 09:19-0500 Height 167.64 cm [facility] Work Phone: 08-26-2017 09:19-0500 Pulse (Heart Rate) 64 /min [facility] [employer] Work Phone: 08-26-2017 09:19-0500 Respiratory Rate 16 /min MD Adi Eaton [facility] [employer] Work Phone: 08-26-2017 09:19-0500 Weight 64.41 kg MD Adi Eaton [facility] [employer] Work Phone: 08-13-2017 12:08-0500 Body height 165.1 cm Flora Saunders RN [employer], Inc.; [employer]. 08-13-2017 12:08-0500 Body mass index (BMI) [Ratio] 23.63 kg/m2 Flora Saunders RN [employer].; [employer]. 08-13-2017 12:08-0500 Body surface area Derived from formula 1.71 m2 Flora Saunders RN [employer], [employer].; [employer], [employer]. 08-13-2017 12:08-0500 Body weight 64.41 kg Flora Saunders RN [employer]. 08-13-2017 12:08-0500 Diastolic blood pressure 76 mm[Hg] Flora Saunders RN [employer].; [employer]. 08-13-2017 12:08-0500 Heart rate 71 /min Flora Saunders RN [employer].; [employer]. 08-13-2017 12:08-0500 Systolic blood pressure 111 mm[Hg] Flora Saunders RN [employer], [employer].; [employer]. 05-19-2017 11:45-0400 Body height 165.1 cm Skyla Soria LPN [facility], [facility].; [employer]. 05-19-2017 11:45-0400 Body mass index (BMI) [Ratio] 23.96 kg/m2 Skyla K Mutersbaugh [employer] [facility], Inc.; [employer]. 05-19-2017 11:45-0400 Body surface area Derived from formula 1.72 m2 Skyla K Mutersbaugh [employer], Inc.; [employer]. 05-19-2017 11:45-0400 Body weight 65.32 kg Skyla K Mutersbaugh [employer], [facility].; [employer]. 05-19-2017 11:45-0400 Diastolic blood pressure 76 mm[Hg] Skyla K Mutersbaugh [employer], Inc.; [employer]. 05-19-2017 11:45-0400 Heart rate 67 /min Skyla K Mutersbaugh [employer], [facility].; [employer]. 05-19-2017 11:45-0400 Systolic blood pressure 106 mm[Hg] Skyla K Mutersbaugh [employer].; [employer]. 03-03-2017 14:35-0400 Body height 165.1 cm Skyla K Mutersbaugh [employer], [facility].; [employer]. 03-03-2017 14:35-0400 Body mass index (BMI) [Ratio] 24.63 kg/m2 Skyla K Mutersbaugh [employer] [facility].; [employer]. 03-03-2017 14:35-0400 Body surface area Derived from formula 1.74 m2 Skyla K Mutersbaugh [employer].; [employer]. 03-03-2017 14:35-0400 Body weight 67.13 kg Skyla K Mutersbaugh [employer], [employer].; [employer]. 03-03-2017 14:35-0400 Diastolic blood pressure 81 mm[Hg] Skyla K Mutersbaugh [employer].; [employer]. 03-03-2017 14:35-0400 Heart rate 67 /min Skyla K Mutersbaugh [employer], [facility].; [employer], Inc[employer] 03-03-2017 14:35-0400 Systolic blood pressure 119 mm[Hg] Skyla K Mutersbaugh [employer] Inc.; [employer] [facility]. 02-09-2017 10:30-0400 Body height 165.1 cm Skyla K Mutersbaugh [employer], [facility].; [employer], [employer]. 02-09-2017 10:30-0400 Body mass index (BMI) [Ratio] 24.46 kg/m2 Skyla K Mutersbaugh [employer] [place] [employer] [facility], Inc.; [employer], [employer]. 02-09-2017 10:30-0400 Body surface area Derived from formula 1.74 m2 Skyla K Mutersbaugh [employer], Inc.; [employer], [facility]. 02-09-2017 10:30-0400 Body temperature 98.8 [degF] Skyla K Mutersbaugh [employer], [facility] [facility] [employer], [employer]. 02-09-2017 10:30-0400 Body weight 66.68 kg Skyla K Mutersbaugh [employer], [facility].; [employer], [employer]. 02-09-2017 10:30-0400 Diastolic blood pressure 73 mm[Hg] Skyla K Mutersbaugh [employer], [facility].; [employer]. 02-09-2017 10:30-0400 Heart rate 63 /min Skyla K Mutersbaugh [employer] [facility].; [employer]. 02-09-2017 10:30-0400 Systolic blood pressure 130 mm[Hg] Skyla K Mutersbaugh [employer] [facility].; [employer]. 01-08-2017 15:15-0400 Body height 165.1 cm Flora Saunders RN [place] [employer] [facility] [employer]. 01-08-2017 15:15-0400 Body mass index (BMI) [Ratio] 23.96 kg/m2 Flora Saunders RN [employer], Inc[employer] 01-08-2017 15:15-0400 Body surface area Derived from formula 1.72 m2 Flroa Saunders RN [employer], [employer].; [employer], [employer] 01-08-2017 15:15-0400 Body temperature 98.7 [degF] Flora Saunders RN [employer], [employer].; [employer], [employer] 01-08-2017 15:15-0400 Body weight 65.32 kg Flora Saunders RN [employer], [employer].; [employer]. 01-08-2017 15:15-0400 Diastolic blood pressure 78 mm[Hg] Flora Saunders RN [employer], [employer].; [employer], [employer] 01-08-2017 15:15-0400 Heart rate 74 /min Flora Saunders RN [employer], [employer]. 01-08-2017 15:15-0400 Systolic blood pressure 114 mm[Hg] Flora Saunders RN [employer], [employer].; [employer], [employer] 12-20-2016 08:10-0400 Body height 165.1 cm Grace Cornejo LPN [employer], [employer] 12-20-2016 08:10-0400 Body mass index (BMI) [Ratio] 23.96 kg/m2 Grace Cornejo LPN [employer], [employer]. 12-20-2016 08:10-0400 Body surface area Derived from formula 1.72 m2 Grace Cornejo LPN [employer], [employer]. 12-20-2016 08:10-0400 Body weight 65.32 kg Grace Cornejo LPN [employer], [employer].; [employer], [employer]. 12-20-2016 08:10-0400 Diastolic blood pressure 77 mm[Hg] Grace Cornejo LPN [employer], [employer]. 12-20-2016 08:10-0400 Heart rate 66 /min [facility], Inc.; [employer]. 12-20-2016 08:10-0400 Systolic blood pressure 114 mm[Hg] Grace Cornejo [employer], Inc.; [employer], [employer] 12-17-2016 10:36-0400 Body height 165.1 cm Julia [facility]lieb [facility]ge [facility] [employer]. 12-17-2016 10:36-0400 Body mass index (BMI) [Ratio] 23.96 kg/m2 Julia [facility] Inc.; [employer]. 12-17-2016 10:36-0400 Body surface area Derived from formula 1.72 m2 Julia Bull Cassidy [facility] [employer]. 12-17-2016 10:36-0400 Body weight 65.32 kg Julia M [facility]ge [facility] Inc.; [employer]. 12-17-2016 10:36-0400 Diastolic blood pressure 80 mm[Hg] Julia [facility]b [facility]ge [facility] Inc.; [employer], [employer]. 12-17-2016 10:36-0400 Heart rate 70 /min Julia [facility]lieb [facility] Inc.; [employer]. 12-17-2016 10:36-0400 Systolic blood pressure 133 mm[Hg] [facility] [employer]. 12-02-2016 16:03-0500 Body height 165.1 cm Skyla K [facility]ersbaugh [facility] [employer]. 12-02-2016 16:03-0500 Body mass index (BMI) [Ratio] 22.8 kg/m2 Skyla K [facility]ersbaugh [facility] Inc[facility] [employer]. 12-02-2016 16:03-0500 Body surface area Derived from formula 1.68 m2 Skyla K Mutersbaugh [employer], Inc.; [employer], Inc[employer] 12-02-2016 16:03-0500 Body weight 62.14 kg Skyla Soria [employer] [facility], Inc.; [employer], Inc[employer] 12-02-2016 16:03-0500 Diastolic blood pressure 75 mm[Hg] Skyla Marily Gillbaugh [employer], Inc.; [employer], Inc[employer] 12-02-2016 16:03-0500 Heart rate 69 /min Skyla Gillbaugh [employer], Inc.; [employer], [employer]. 12-02-2016 16:03-0500 Systolic blood pressure 113 mm[Hg] Skyla Marily Gillbaugh [employer], Inc.; [employer], Inc[employer] 05-24-2015 15:38-0400 Body height 165.1 cm Grace Cornejo [employer], Inc.; [employer], [employer]. 05-24-2015 15:38-0400 Body mass index (BMI) [Ratio] 21.63 kg/m2 Grace [facility]jo [facility], Inc.; [employer], [employer]. 05-24-2015 15:38-0400 Body surface area Derived from formula 1.65 m2 Grace Cornejo [employer], Inc.; [employer], Inc[employer] 05-24-2015 15:38-0400 Body temperature 98.4 [degF] Grace Cornejo [employer], Inc.; [employer], Inc[employer] 05-24-2015 15:38-0400 Body weight 58.97 kg Grace Cornejo [employer], Inc.; [employer], [employer]. 05-24-2015 15:38-0400 Diastolic blood pressure 77 mm[Hg] Grace Cornejo [employer], Inc.; [employer], [employer]. 05-24-2015 15:38-0400 Heart rate 60 /min Grace Cornejo [employer], Inc.; [employer], [employer]. 05-24-2015 15:38-0400 Systolic blood pressure 119 mm[Hg] Grace Cornejo ROSH[employer] [facility], Inc.; [employer], Inc. 05-15-2014 16:05-0400 Body height 165.1 cm Sabiha Wilson LPN [employer], Inc.; [employer], Inc[employer] 05-15-2014 16:05-0400 Body mass index (BMI) [Ratio] 21.47 kg/m2 Sabiha Wilson LPN [employer], Inc.; [employer], Inc[employer] 05-15-2014 16:05-0400 Body surface area Derived from formula 1.64 m2 Sabiha Wilson LPN [employer], Inc.; [employer], Inc[employer] 05-15-2014 16:05-0400 Body temperature 98.1 [degF] Sabiha Wilson LPN [employer], Inc.; [employer], Inc[employer] 05-15-2014 16:05-0400 Body weight 58.51 kg Sabiha Wilson LPN [employer], Inc.; [employer], Inc. 05-15-2014 16:05-0400 Diastolic blood pressure 73 mm[Hg] Sabiha Wilson [facility] [employer], Inc.; [employer], Inc[employer] 05-15-2014 16:05-0400 Heart rate 61 /min Sabiha Wilson LPN [employer], Inc.; [employer], Inc[employer] 05-15-2014 16:05-0400 Systolic blood pressure 122 mm[Hg] Sabiha Wilson LPN [employer], Inc.; [employer], Inc[employer] 02-16-2014 16:17-0400 Body height 165.1 cm Grace Cornejo [employer], Inc.; [employer], Inc[employer] 02-16-2014 16:17-0400 Body mass index (BMI) [Ratio] 20.63 kg/m2 Grace Kazt [place] [employer], Inc.; [employer], Inc[employer] 02-16-2014 16:17-0400 Body surface area Derived from formula 1.61 m2 Grace Katz [place] [employer], Inc.; [employer], Inc. 02-16-2014 16:17-0400 Body temperature 98.3 [degF] Grace Cornejo [employer] [facility], Inc.; [employer], Inc[employer] 02-16-2014 16:17-0400 Body weight 56.25 kg Grace Cornejo [employer] [facility], Inc.; [employer], Inc. 02-16-2014 16:17-0400 Diastolic blood pressure 85 mm[Hg] [facility], Inc.; [employer], Inc[employer] 02-16-2014 16:17-0400 Heart rate 60 /min Grace Cornejo [facility], Inc.; [employer], Inc[employer] 02-16-2014 16:17-0400 Systolic blood pressure 124 mm[Hg] Grace Cornejo [employer], Inc.; [employer], Inc[employer] 12-06-2013 13:31-0400 Body height 165.1 cm Karly Ochoa LPN [facility] [employer] [facility], Inc.; [employer], [employer] 12-06-2013 13:31-0400 Body mass index (BMI) [Ratio] 18.89 kg/m2 Karly Ochoa LPN [employer], Inc.; [employer], Inc[employer] 12-06-2013 13:31-0400 Body surface area Derived from formula 1.55 m2 Karly Ochoa LPN [employer] [facility], Inc.; [employer], Inc[employer] 12-06-2013 13:31-0400 Body temperature 98.9 [degF] Karly Ochoa LPN [facility] [employer], Inc.; [employer], Inc. 12-06-2013 13:31-0400 Body weight 51.48 kg K[facility]cho[facility] LPN [facility], Inc.; [employer], Inc[employer] 12-06-2013 13:31-0400 Diastolic blood pressure 73 mm[Hg] Karly Ochoa LPN [employer], Inc.; [employer] 12-06-2013 13:31-0400 Heart rate 70 /min Karly Ochoa LPN [facility], [facility].; [facility], Inc. 12-06-2013 13:31-0400 Inhaled oxygen concentration 20 % Karly Ochoa LPN [facility], [facility].; [facility], Inc. 12-06-2013 13:31-0400 SaO2% (BldA) [Mass fraction] 99 % Karly Ochoa LPN [facility], Inc.; [employer] [employer] [facility], Inc. 12-06-2013 13:31-0400 Systolic blood pressure 104 mm[Hg] Karly Ochoa LPN [facility], Inc.; [facility], [facility]. 12-03-2013 10:54-0500 Body height 165.1 cm Sabiha Wilson LPN [facility], Inc.; [employer] [employer] [facility], Inc. 12-03-2013 10:54-0500 Body mass index (BMI) [Ratio] 18.47 kg/m2 Sabiha Wilson LPN [facility], Inc.; [employer] [employer] [facility], [facility]. 12-03-2013 10:54-0500 Body surface area Derived from formula 1.54 m2 Sabiha Wilson LPN [facility], Inc.; [place] [employer] [facility], [facility]. 12-03-2013 10:54-0500 Body temperature 98 [degF] Sabiha Wilson LPN [facility], Inc.; [employer] [employer] [facility], [facility]. 12-03-2013 10:54-0500 Body weight 50.35 kg Sabiha Wilson LPN [facility], Inc.; [employer] [employer] [facility], [facility]. 12-03-2013 10:54-0500 Diastolic blood pressure 83 mm[Hg] Sabiha Wilson LPN [facility], Inc.; [employer] [facility], [facility]. 12-03-2013 10:54-0500 Heart rate 87 /min aSbiha Wilson LPN [facility], Inc.; [employer], [employer] 12-03-2013 10:54-0500 Inhaled oxygen concentration 20 % Sabiha Wilson LPN [facility], Inc.; [place] [employer], [employer] 12-03-2013 10:54-0500 SaO2% (BldA) [Mass fraction] 99 % Sabiha Wilson LPN [facility], Inc.; [employer]. 12-03-2013 10:54-0500 Systolic blood pressure 118 mm[Hg] Sabiha Wilson [facility] [employer] [facility], Inc.; [employer]. 12-01-2013 08:59-0500 Body height 165.1 cm Julia M [facility]ge [facility] Inc.; [employer]. 12-01-2013 08:59-0500 Body mass index (BMI) [Ratio] 19.14 kg/m2 Julia Gottlieb [facility].; [employer]. 12-01-2013 08:59-0500 Body surface area Derived from formula 1.56 m2 Julia Gottlieb Ange [facility].; [employer]. 12-01-2013 08:59-0500 Body temperature 99.9 [degF] Julia Gottlieb Ange [facility]. [facility].; [employer]. 12-01-2013 08:59-0500 Body weight 52.16 kg Julia Gottlieb [facility]ge [facility].; [employer]. 12-01-2013 08:59-0500 Diastolic blood pressure 77 mm[Hg] Julia Gottlieb Ange [facility]. [facility].; [employer]. 12-01-2013 08:59-0500 Heart rate 93 /min Julia Gottlieb Ange [facility]. [facility].; [employer]. 12-01-2013 08:59-0500 Systolic blood pressure 120 mm[Hg] Julia Gottlieb Ange [facility]. [facility].; [employer]. 07-21-2013 13:50-0400 Body weight 54.43 kg Sabiha Wilson [employer]. [facility].; [employer]. 06-27-2013 10:07-0400 Body height 165.1 cm Sabiha Wilson [employer]. [facility].; [employer]. 06-27-2013 10:[id number] Body mass index (BMI) [Ratio] 19.3 kg/m2 Sabiha Wilson LPN [employer], Inc.; [employer], [employer] 06-27-2013 10:07-0400 Body surface area Derived from formula 1.57 m2 Sabiha Crow Wilson LPN [employer], Inc.; [employer], [employer] 06-27-2013 10:[id number] Body weight 52.62 kg Sabiha Wilson [facility], Inc.; [employer], [employer] 06-27-2013 10:[id number] Diastolic blood pressure 80 mm[Hg] Sabiha Crow Wilson [facility], Inc.; [employer], Inc[employer] 06-27-2013 10:070400 Heart rate 77 /min Sabiha Wilson [employer]. [facility], Inc.; [employer], [employer] 06-27-2013 10:[id number] Systolic blood pressure 128 mm[Hg] Sabiha Wilson [facility], Inc.; [employer], [employer] 03-09-2013 14:100400 Body height 165.1 cm Sabiha Wilson [facility], Inc.; [employer], [employer] 03-09-2013 14:10-0400 Body mass index (BMI) [Ratio] 20.14 kg/m2 Sabiha Wilson [facility], Inc.; [employer], [employer] 03-09-2013 14:100400 Body surface area Derived from formula 1.6 m2 Sabiha Wilson [employer]. [facility], Inc.; [employer], [employer]. 03-09-2013 14:100400 Body temperature 99.4 [degF] Sabiha Wilson [facility], Inc.; [employer], Inc[employer] 03-09-2013 14:100400 Body weight 54.89 kg Sabiha Wilson LPN [employer], Inc.; [employer], [employer]. 03-09-2013 14:10-0400 Diastolic blood pressure 81 mm[Hg] Sabiha Wilson [employer] [facility], Inc.; [facility], [facility]. 03-09-2013 14:10-0400 Heart rate 79 /min Sabiha Wilson [employer] [facility], Inc.; [facility], Inc. 03-09-2013 14:10-0400 Systolic blood pressure 124 mm[Hg] Sabiha Wilson [facility], Inc.; [facility], Inc. 02-24-2013 13:14-0400 Body height 165.1 cm Julia Cassidy [facility], Inc.; [employer] [employer] [facility], [facility]. 02-24-2013 13:14-0400 Body mass index (BMI) [Ratio] 20.63 kg/m2 Julia Gottlieb Ange [facility], Inc.; [facility], Inc. 02-24-2013 13:14-0400 Body surface area Derived from formula 1.61 m2 Julia Gottlieb Ange [facility], Inc.; [facility], [facility]. 02-24-2013 13:14-0400 Body weight 56.25 kg Julia Bull Cassidy [facility], [facility].; [facility], [facility]. 02-24-2013 13:14-0400 Diastolic blood pressure 63 mm[Hg] Julia Cassidy [facility], Inc.; [facility], Inc. 02-24-2013 13:14-0400 Heart rate 67 /min Julia Cassidy [facility], Inc.; [facility], [facility]. 02-24-2013 13:14-0400 Systolic blood pressure 112 mm[Hg] Julia Cassidy [employer] [facility], [facility].; [facility], [facility]. 01-26-2013 15:34-0400 Body weight 55.16 kg Sabiha Wilson [facility], Inc.; [facility], Inc. 01-03-2013 15:33-0400 Body weight 55.7 kg Sabiha Wilson [employer] [facility], Inc.; [place] [employer] 12-14-2012 15:45-0400 Body height 152.4 cm Karly Ochoa CO[employer]CTOR [facility], Inc.; [employer], Inc[employer] 12-14-2012 15:45-0400 Body mass index (BMI) [Ratio] 23.53 kg/m2 Karly Gabriela BARAKAT [place] [employer] [facility], Inc.; [employer], Inc[employer] 12-14-2012 15:45-0400 Body surface area Derived from formula 1.51 m2 Karly Ochoa LPN [place] [employer] [facility], Inc.; [employer], Inc[employer] 12-14-2012 15:45-0400 Body weight 54.66 kg Karly Gabriela BARAKAT [place] [employer] [facility], Inc.; [employer], Inc[employer] 12-14-2012 15:45-0400 Diastolic blood pressure 82 mm[Hg] Karly Ochoa LPN [place] [employer] [facility], Inc.; [employer], Inc[employer] 12-14-2012 15:45-0400 Heart rate 79 /min Karly Ochoa LPN [place] [employer] [facility], Inc.; [employer], Inc[employer] 12-14-2012 15:45-0400 Systolic blood pressure 122 mm[Hg] Karly Gabriela BARAKAT [employer], Inc.; [employer], Inc[employer] 09-16-2012 13:[id number] Body height 152.4 cm Sabiha Wilson LPN [place] [employer] [facility], Inc.; [employer], Inc[employer] 09-16-2012 13:11-0500 Body mass index (BMI) [Ratio] 25.39 kg/m2 Sabiha Wilson LPN [employer], Inc.; [employer], Inc[employer] 09-16-2012 13:11-0500 Body surface area Derived from formula 1.55 m2 Sabiha Wilson LPN [employer], Inc.; [employer], Inc[employer] 09-16-2012 13:11-0500 Body weight 58.97 kg Sabiha Wilson LPN [employer], Inc.; [employer], Inc[employer] 09-16-2012 13:11-0500 Diastolic blood pressure 66 mm[Hg] Sabiha Wilson LPN [employer], Inc.; [employer], Inc[employer] 09-16-2012 13:11-0500 Heart rate 59 /min Sabiha Crow Wilson LPN [employer], Inc.; [employer], [employer] 09-16-2012 13:11-0500 Systolic blood pressure 102 mm[Hg] Sabiha Crow Wilson LPN [employer], Inc.; [employer], [employer] 08-03-2012 10:47-0500 Body height 167.64 cm Sabiha Wilson [employer], Inc.; [employer], [employer] 08-03-2012 10:47-0500 Body mass index (BMI) [Ratio] 21.14 kg/m2 Sabiha Crow Wilson [employer], Inc.; [employer], [employer] 08-03-2012 10:47-0500 Body surface area Derived from formula 1.67 m2 Sabiha Crow Wilson [employer], Inc.; [employer], [employer] 08-03-2012 10:47-0500 Body weight 59.42 kg Sabiha Wilson [employer], Inc.; [employer], [employer] 08-03-2012 10:47-0500 Diastolic blood pressure 76 mm[Hg] Sabiha Crow Wilson [employer], Inc.; [employer], [employer] 08-03-2012 10:47-0500 Heart rate 69 /min Sabiha Wilson [employer], Inc.; [employer], [employer] 08-03-2012 10:47-0500 Systolic blood pressure 125 mm[Hg] Sabiha Wilson LPN [employer], Inc.; [employer], [employer] 07-27-2012 11:27-0400 Body height 167.64 cm Sabiha Crow Wilson [employer], Inc.; [employer], [employer]. 07-27-2012 11:27-0400 Body mass index (BMI) [Ratio] 20.66 kg/m2 Sabiha Crow Wilson LPN [employer], Inc.; [employer], [employer] 07-27-2012 11:27-0400 Body surface area Derived from formula 1.65 m2 Sabiha Crow Wilson [employer], Inc.; [employer], [employer] 07-27-2012 11:27-0400 Body temperature 97 [degF] Sabiha Wilson LPN [employer], Inc.; [employer], [employer] 07-27-2012 11:27-0400 Body weight 58.06 kg Sabiha Wilson LPN [employer], Inc.; [employer], [employer] 07-27-2012 11:27-0400 Diastolic blood pressure 75 mm[Hg] Sabiha Wilson LPN [employer], Inc.; [employer], [employer] 07-27-2012 11:27-0400 Heart rate 72 /min Sabiha Wilson LPN [employer], Inc.; [employer], [employer] 07-27-2012 11:27-0400 Systolic blood pressure 114 mm[Hg] Sabiha Wilson LPN [employer], Inc.; [employer], Inc[employer] 07-02-2012 11:01-0400 Body height 167.64 cm Sabiha Wilson LPN [employer], Inc.; [employer], Inc[employer] 07-02-2012 11:01-0400 Body mass index (BMI) [Ratio] 21.14 kg/m2 Sabiha Wilson LPN [employer], [employer].; [employer], [employer] 07-02-2012 11:01-0400 Body surface area Derived from formula 1.67 m2 Sabiha Wilson LPN [employer], [employer].; [employer], [employer] 07-02-2012 11:01-0400 Body weight 59.42 kg Sabiha Wilson LPN [employer], Inc.; [employer], [employer] 07-02-2012 11:01-0400 Diastolic blood pressure 74 mm[Hg] Sabiha Wilson LPN [employer], Inc.; [employer], [employer]. 07-02-2012 11:01-0400 Heart rate 67 /min Sabiha Wilson LPN [employer], Inc.; [employer], [employer]. 07-02-2012 11:01-0400 Systolic blood pressure 120 mm[Hg] Sabiha Wilson LPN [employer], Inc.; [employer], [employer]. 05-18-2012 16:53-0400 Body height 167.64 cm Sabiha Wilson COIL CONNECTOR [facility], Inc.; [employer], [facility]. 05-18-2012 16:53-0400 Body mass index (BMI) [Ratio] 20.82 kg/m2 Sabiha Wilson LPN [facility], Inc.; [employer], [employer] 05-18-2012 16:53-0400 Body surface area Derived from formula 1.66 m2 Sabiha Wilson [employer], Inc.; [employer], [facility]. 05-18-2012 16:53-0400 Body temperature 98.8 [degF] Sabiha Wilson [facility], Inc.; [employer], [employer]. 05-18-2012 16:53-0400 Body weight 58.51 kg Sabiha Wilson CO[employer]CTOR [employer]. [facility], Inc.; [employer], [employer]. 05-18-2012 16:53-0400 Diastolic blood pressure 76 mm[Hg] Sabiha Wilson [facility], [facility].; [employer], [employer]. 05-18-2012 16:53-0400 Heart rate 77 /min Sabiha Wilson [facility], Inc.; [employer], [employer]. 05-18-2012 16:53-0400 Systolic blood pressure 117 mm[Hg] Sabiha Wilson [facility], Inc.; [employer], [facility]. 04-14-2012 09:43-0400 Body height 167.64 cm Sabiha Wilson LPN [employer] [facility], [facility].; [employer], [employer]. 04-14-2012 09:43-0400 Body mass index (BMI) [Ratio] 21.14 kg/m2 Sabiha Wilson [employer]. [facility], Inc.; [employer], [employer]. 04-14-2012 09:43-0400 Body surface area Derived from formula 1.67 m2 Sabiha Wilson CO[employer] CONNECTOR [employer]. [facility], Inc.; [employer], [employer]. 04-14-2012 09:43-0400 Body temperature 98.5 [degF] Sabihanahomi Wilson LPN [facility], Inc.; [employer] [facility], Inc. 04-14-2012 09:43-0400 Body weight 59.42 kg Sabiha Wilson LPN [facility], Inc.; [employer] [facility], Inc. 04-14-2012 09:43-0400 Diastolic blood pressure 81 mm[Hg] Sabiha Wilson LPN [facility], Inc.; [employer] [facility], Inc. 04-14-2012 09:43-0400 Heart rate 58 /min Sabiha Wilson LPN [facility], Inc.; [employer], [employer] 04-14-2012 09:43-0400 Systolic blood pressure 120 mm[Hg] Sabiha Wilson LPN [place] [employer] [facility], Inc.; [employer], Inc. 02-24-2012 09:46-0400 Body height 167.64 cm Sabiha Wilson COIL CONNECTOR [facility], Inc.; [employer]. [facility], Inc. 02-24-2012 09:46-0400 Body mass index (BMI) [Ratio] 20.82 kg/m2 Sabiha Wilson LPN [employer] [facility] [employer] 02-24-2012 09:46-0400 Body surface area Derived from formula 1.66 m2 Sabiha Wilson LPN [employer] [facility] [employer] 02-24-2012 09:46-0400 Body weight 58.51 kg Sabiha Wilson LPN [facility] [employer] 02-24-2012 09:46-0400 Diastolic blood pressure 87 mm[Hg] Sabiha Wilson LPN [employer] [facility] [employer] 02-24-2012 09:46-0400 Heart rate 75 /min Sabiha Wilson LPN [employer] [facility] [employer] 02-24-2012 09:46-0400 Systolic blood pressure 133 mm[Hg] Sabiha Wilson LPN [employer] [facility] [employer] 02-17-2012 09:51-0400 Body height 167.64 cm Julia Cassidy COIL CONNECTOR [employer] [employer] 02-17-2012 09:51-0400 Body mass index (BMI) [Ratio] 20.66 kg/m2 Julia Bull Cassidy LPN [employer] [employer] 02-17-2012 09:51-0400 Body surface area Derived from formula 1.65 m2 Julia Bull Cassidy LPN [employer] 02-17-2012 09:51-0400 Body temperature 98.7 [degF] Julia Bull Cassidy LPN [employer] 02-17-2012 09:51-0400 Body weight 58.06 kg Julia Bull Cassidy LPN [employer] 02-17-2012 09:51-0400 Diastolic blood pressure 76 mm[Hg] Julia Bull Cassidy LPN [employer] 02-17-2012 09:51-0400 Heart rate 63 /min Julia Bull Cassidy LPN [employer]. 02-17-2012 09:51-0400 Systolic blood pressure 125 mm[Hg] Julia Bull Cassidy LPN [employer] 12-02-2011 15:41-0500 Body weight 61.69 kg Julia Bull Cassidy LPN [employer]. 12-02-2011 15:41-0500 Diastolic blood pressure 66 mm[Hg] Julia Bull Cassidy LPN [employer], [employer] 12-02-2011 15:41-0500 Heart rate 61 /min Julia Cassidy LPN [employer] 12-02-2011 15:41-0500 Systolic blood pressure 104 mm[Hg] Julia Cassidy LPN [employer] 10-02-2011 14:44-0500 Body height 167.64 cm Nimco Watson RN Work Phone: [employer] 10-02-2011 14:44-0500 Body mass index (BMI) [Ratio] 21.31 kg/m2 Nimco Watson RN Work Phone: [employer] 10-02-2011 14:44-0500 Body surface area Derived from formula 1.68 m2 Nimco Watson RN Work Phone: [employer] 10-02-2011 14:44-0500 Body weight 59.88 kg Nimco Watson RN Work Phone: [employer] 10-02-2011 14:44-0500 Diastolic blood pressure 74 mm[Hg] Nimco Watson RN Work Phone: [employer] 10-02-2011 14:44-0500 Heart rate 65 /min Nimco Watson RN Work Phone: [employer] 10-02-2011 14:44-0500 Systolic blood pressure 117 mm[Hg] Nimco Watson RN Work Phone: [employer] Encounters Encounter Date Encounter Type Care Provider Facility Start: 10-26-2023 End: 10-26-2023 Choco KO-C Work Phone: [employer]. Start: 09-29-2023 End: 09-29-2023 Choco Beavers PA-C Work Phone: [employer] Start: 09-16-2023 End: 09-16-2023 Office outpatient visit 15 minutes Choco Beavers PA-C Work Phone: [employer]. Start: 09-14-2023 End: 09-14-2023 Choco KO-C Work Phone: [employer]. Start: 09-04-2023 End: 09-04-2023 Luke Ruthann PA-C Work Phone: [employer]. Start: 09-03-2023 End: 09-03-2023 Office outpatient visit 15 minutes Luke Ruthann PA-C Work Phone: [employer]. Start: 09-01-2023 End: 09-01-2023 Luke Ruthann PA-C Work Phone: [employer]. Start: 09-01-2023 End: 09-01-2023 Luke Ruthann PA-C Work Phone: [employer]. Start: 08-26-2023 End: 08-26-2023 Office outpatient visit 25 minutes Luke Ruthann PA-C Work Phone: [employer]. Start: 07-24-2023 End: 07-24-2023 Luke Ruthann PA-C Work Phone: [employer]. Start: 05-01-2023 End: 05-01-2023 Luke Ruthann PA-C Work Phone: [employer]. Start: 03-16-2023 End: 03-16-2023 Office outpatient visit 15 minutes Luke Ruthann PA-C Work Phone: [employer]. Start: 02-06-2023 End: 02-06-2023 Luke Ruthann PA-C Work Phone: [employer]. Start: 01-20-2023 End: 01-19-2023 Luke Ruthann PA-C Work Phone: [employer]. Start: 01-20-2023 End: 01-20-2023 Initial preventive medicine new patient 40-64yrs Luke Ruthann PA-C Work Phone: [employer]. Start: 12-23-2022 End: 12-23-2022 Luke Ruthann PA-C Work Phone: [employer]. Start: 12-17-2022 End: 12-17-2022 Luke Ruthann PA-C Work Phone: [employer]. Start: 12-16-2022 End: 12-16-2022 Office outpatient visit 15 minutes Luke Ruthann PA-C Work Phone: [employer]. Start: 10-10-2022 End: 10-10-2022 Office outpatient visit 15 minutes Luke Ruthann PA-C Work Phone: [employer]. Start: 10-03-2022 End: 10-03-2022 Luke Ruthann PA-C Work Phone: [employer]. Start: 10-01-2022 End: 10-01-2022 Luke Ruthann PA-C Work Phone: [employer]. Start: 09-30-2022 End: 09-30-2022 Luke Ruthann PA-C Work Phone: [employer]. Start: 09-26-2022 End: 09-26-2022 Office outpatient visit 15 minutes Luke Ruthann PA-C Work Phone: [employer]. Start: 09-02-2022 End: 09-02-2022 Luke Ruthann PA-C Work Phone: [employer]. Start: 08-27-2022 End: 08-27-2022 Luke Ruthann PA-C Work Phone: [employer]. Start: 07-25-2022 End: 07-25-2022 Luke Ruthann PA-C Work Phone: [employer]. Start: 07-24-2022 End: 07-24-2022 Luke Ruthann PA-C Work Phone: [employer] Start: 07-15-2022 End: 07-15-2022 Office outpatient visit 15 minutes Luke Ruthann PA-C Work Phone: [employer] Start: 06-23-2022 End: 06-23-2022 Office outpatient visit 15 minutes Luke Ruthann PA-C Work Phone: [employer] Start: 06-23-2022 End: 06-23-2022 Luke Ruthann PA-C Work Phone: [employer] Start: 06-03-2022 End: 06-03-2022 Office outpatient visit 25 minutes Luke Ruthann PA-C Work Phone: [employer] Start: 05-19-2022 End: 05-19-2022 Luke Ruthann PA-C Work Phone: [employer] Start: 05-10-2022 End: 05-10-2022 ambulatory GINO PA-C [facility] Start: 05-09-2022 End: 05-09-2022 Ariannake Ruthann PA-C Work Phone: [employer] Start: 05-09-2022 Refill Alexandra Killian MD Work Phone: [facility] Procedures Date Procedure Procedure Detail Performing Clinician [...] foot complete minimum 3 views Mckenna Mathiasmiguel [employer] Start: 12-16-2018 End: 12-16-2018 Depression screening Tanner [...] Author Start: 03-03-2025 DIABETES SCREEN DIABETES SCREEN [facility] Start: 11-24-[address] [facility] Start: 11-24-2024 COLORECTAL CANCER SCREENING COLORECTAL CANCER SCREENING [facility] Start: 01-20-2024 [facility] Start: 09-29-2023 25 hydroxy includes fractions if performed [facility]; [employer] Start: 09-29-2023 Lipid panel [employer]; [employer] Start: 08-26-2023 Radiologic exam abdomen 3+ views [employer]; [employer] Start: 05-29-2022 Influenza vaccination INFLUENZA (#1) [facility] Start: 01-29-2022 Adult depression screening assessment DEPRESSION SCREENING [facility] Start: 2021 COLOGUARD (FIT-DNA) COLOGUARD (FIT-DNA) [facility] Start: [address]APHY [facility] Start: 2021 DIABETES SCREEN DIABETES SCREEN [facility] Start: 2021 FECAL OCCULT BLOOD FECAL OCCULT BLOOD [facility] Start: 2021 L[address] L[address]ID SCRE[address] [facility] Start: [address] [facility] Start: 06-25-2021 End: 07-08-2021 Ct abdomen & pelvis w/contrast material [employer]; [employer] Start: 05-29-2021 Influenza vaccination INFLUENZA (#1) [facility] Start: 11-05-[address] 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 Start: 1995 Urine microalbumin profile DTAP,TDAP,TD (1 - Tdap) [facility] Start: 1994 HEPATITIS C SCREENING HEPATITIS C SCREENING [facility] Start: 1994 HIV SCREENING HIV SCREENING [facility] Start: 1988 COVID-19 VACCINE (1) COVID-19 VACCINE (1) [facility] Start: 1982 PNEUMOCOCCAL (1 - PCV) PNEUMOCOCCAL (1 - PCV) [facility] Start: 04-28-1977 COVID-19 VACCINE (#1) COVID-19 VACCINE (#1) [facility] Start: 1976 HEPATITIS B (1 of 3 - 3-dose series) HEPATITIS B (1 of 3 - 3-dose series) [facility] [employer], [employer]. Immunizations Immunization Date Immunization Notes Care Provider Guillermo cowan 07-24-2023 influenza, injectabl e, quadrivalent, preservative free Luke Ruthann PA-C Work Phone: [employer] 07-25-2022 Choco Jayle r PA-C Work Phone: [employer] 07-24-2022 influenza, injectabl e, quadrivalent, contains preservative Luke Ruthann PA-C Work Phone: [employer] 06-29-2020 influenza, injectabl e, quadrivalent, contains preservative Luke Ruthann PA-C Work Phone: [employer] 01-11-2019 tetanus toxoid, reduced diphtheria toxoid, and acellular pertussis vaccine, adsorbed Luke Ruthann PA-C Work Phone: [facility] 07-25-2016 influenza virus vaccine, unspecified formulation Alexandra Killian MD Work Phone: [facility] 07-21-2013 influenza, seasonal, injectable Luke Ruthann PA-C Work Phone: [facility] 08-31-2009 hepatitis B vaccine, adult dosage Luke Ruthann PA-C Work Phone: [facility] 05-31-2009 hepatitis B vaccine, adult dosage Luke Ruthann PA-C Work Phone: [facility] 04-30-2009 hepatitis B vaccine, adult dosage Luke Ruthann PA-C Work Phone: [facility] 04-30-2009 tetanus toxoid, reduced diphtheria toxoid, and acellular pertussis vaccine, adsorbed Luke Ruthann PA-C Work Phone: [facility] 05-15-1989 measles, mumps and rubella virus vaccine Luke Ruthann PA-C Work Phone: [facility] 12-09-1981 diphtheria, tetanus toxoids and acellular pertussis vaccine, 5 pertussis antigens Luke Ruthann PA-C Work Phone: [facility] 12-09-1981 poliovirus vaccine, inactivated Luke Ruthann PA-C Work Phone: [facility] 04-12-1978 diphtheria, tetanus toxoids and acellular pertussis vaccine, 5 pertussis antigens Luke Ruthann PA-C Work Phone: [facility].; [facility] 04-12-1978 measles, mumps and rubella virus vaccine Luke Ruthann PA-C Work Phone: [facility].; [facility]. 04-12-1978 poliovirus vaccine, inactivated Luke Ruthann PA-C Work Phone: [facility] 02-15-1977 diphtheria, tetanus toxoids and acellular pertussis vaccine, 5 pertussis antigens Luke Ruthann PA-C Work Phone: [facility] 02-15-1977 poliovirus vaccine, inactivated Luke Ruthann PA-C Work Phone: [facility] 01-10-1977 diphtheria, tetanus toxoids and acellular pertussis vaccine, 5 pertussis antigens Luke Ruthann PA-C Work Phone: [facility].; [facility] 1976 diphtheria, tetanus toxoids and acellular pertussis vaccine, 5 pertussis antigens Luke Ruthann PA-C Work Phone: [facility].; [facility] 1976 poliovirus vaccine, inactivated Luke Ruthann PA-C Work Phone: [facility] [employer]. Payers Date Payer Category Payer Unknown [id number] 2003 Medicaid [place] [employer] [place] [id number] 2003-Present [phone] [place] [id number] Medicaid [id number] 2003 Medicaid [place] [id number] 2003-Present [phone] [facility] [address] [place] [address] Medicaid [id number] 1976 Unknown [id number] [id number] 1976 Unknown [id number] 2.16.840.1.597990.3.579.2.65 1976 Unknown [id number] 2.16.840.1.985487.3.579.2. 1976 Unknown [id number] 2.16.840.1.150389.3.579.2. 1976 Unknown [id number] 2.16.840.1.282588.3.579.2. 1976 Unknown [id number] 2.16.840.1.821800.3.579.2. 1976 Unknown [id number] 2.16.840.1.051614.3.579.2. 1976 Unknown [id number] 2.16.840.1.792118.3.579.2. 1976 Unknown [id number] 2.16.840.1.332835.3.579.2. 1976 Unknown [id number] 2.16.840.1.868823.3.579.2. 1976 Unknown [id number] 2.16.840.1.048360.3.579.2. 1976 Unknown [id number] 2.16.840.1.053728.3.579.2. 1976 Unknown [id number] 2.16.840.1.180351.3.579.2 1976 Unknown [id number] 2.16.840.1.384812.3.579.2.651 1976 Unknown [id number] 2.16.840.1.486844.3.579.2.651 1976 Unknown [id number] 2.16.840.1.245046.3.579.2.651 1976 Unknown [id number] 2.16.840.1.613505.3.579.2.65 1976 Unknown [id number] 2.16.840.1.858307.3.579.2.651 1976 Unknown [id number] 2.16.840.1.447555.3.579.2.651 1976 Unknown [id number] 2.16.840.1.309535.3.579.2.651 1976 Unknown [id number] 2.16.840.1.464873.3.579.2.65 Unknown [id number] Social History Date Type Detail Facility Start: 07-31-2021 Never smoked t obacco (finding) [facility] Sex Assigned At Female [facility] Start: 09-19-2021 Alcohol intake 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 Start: 1975 Sex Assigned At Not on file [facility] Never smoker. [facility] Clinical Notes 06-15-2010 to 05-09-2022 Telephone [...] Pam Navas Ma documented in this encounter [facility] 12-16-2021 Miscellaneous Notes Patient phones requesting refills as follows: Pending Prescriptions Disp Refills FAMOTIDINE 40 MG TABLET 180 tablet 1 Sig: TAKE 1 TABLET BY MOUTH TWICE A DAY VINCENT: Yes Please review and advise. Pam Navas Ma documented in this encounter [facility] 08-01-2021 Evaluation + Plan note Future Scheduled TestsXR Upper GI 08/01/21 [facility] 08-01-2021 Evaluation + Plan note Future Appointments Future Scheduled TestsXR Upper GI 08/01/21 [facility] 07-31-2021 Note HNO ID: [id number] Author: PATRICIO Olvera Service: Nuclear Medicine Author Type: Clinical Cannon Pinion Adjuster Type: Progress Notes Filed: 07/31/2021 9:31 AM [...] [address] PERFORMED: No IV SITE: ME only - not applicable, oral or physician administered agents given to patient POST EXAM PIV STATUS: Not applicable PROCEDURE TYPE: NM GET: 1.1 mCi Tc99m SULFUR COLLOID was administered orally via 4 ounces of Egg Beaters,1 pieces of toast, .5 ounce of jelly with 6 ounces of water orally ADMINISTRATION TIME: 07:25 PATIENT DISCHARGED TO: Ambulatory patient, left ME department area. A Diagnostic radioactive procedure has taken place, with no further precautions necessary other than routine body substance precautions. More information regarding radiation safety can be found using this link: [email or web address] SIGNATURE: PATRICIO Olvera PATIENT NAME: Carol Grissom DATE: July 31, 2021 TIME: 9:08 AM PAGER/CONTACT #: [facility] documented as of this encounter (statuses as of 12/17/2021) [facility] History of Past illness Narrative* Problem Noted Date Resolved Date Primary focal hyperhidrosis 06/15/201005/29 Acne Vulgaris: Inflammatory Grade II 06/15/2010 06/15/2010 documented as of this encounter (statuses as of 05/09/2022) [facility] Diagnosis Epigastric abdominal pain Abdominal pain, epigastric 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 Advance Directive(s) 04/19/2021 10:05 AM Additional Source Comments INFORMATION SOURCE (unrecogn ized section and content) DATE CREATED AUTHOR AUTHOR'S ORGANIZ ATION 08/01/2021 [facility] DATE CREATED AUTHOR AUTHOR'S ORGANIZ ATION 05/26/2022 [facility] DATE CREATED AUTHOR AUTHOR'S ORGANIZ ATION 01/04/2023 [facility] DATE CREATED AUTHOR AUTHOR'S ORGANIZ ATION 03/19/2023 [facility] Source Comments (unrecognize d section and content) In the event this informatio n is protected by the Federal Confidentiality of Alcohol and Drug Abuse Patient Records regulations: The Federal rules restrict any use of the information to criminally investigate or prosecute any alcohol or drug abuse patient.[facility] the event this information is protected by the Federal Confidentiality of Alcohol and Drug Abuse Patient Records regulations: The Federal rules restrict any use of the information to criminally investigate or prosecute any alcohol or drug abuse patient.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 [employer] [facility]. provides no warranty or guarantee of the accuracy or completeness of information in this document.
--- NOTE | 2023-11-15 12:05 | MRI_ITS ---
EXAM: MR HEAD WITHOUT INTRAVENOUS CONTRAST CLINICAL INDICATION: left vision loss. TECHNIQUE: Multiplanar and multisequence MR images of the brain were obtained without intravenous contrast. COMPARISON: MR Head dated 11/26/2020 FINDINGS: BRAIN AND EXTRA-AXIAL SPACES: Normal. No intra- or extra-axial hemorrhage. No evidence of acute infarct. No intracranial mass or mass effect. There is preservation of the lucas/white matter interface. Posterior fossa structures are unremarkable. Ventricles are appropriate for age. No hydrocephalus. Basal cisterns are patent. SELLA: Normal. Normal sella turcica, pituitary gland, infundibular stalk, optic chiasm and hypothalamus. AUDITORY SYSTEM: Normal. The internal auditory canals are patent. BONES/JOINTS: Intact calvarium. SINUSES: Unremarkable as visualized. Clear. MASTOID AIR CELLS: Unremarkable as visualized. Clear. ORBITS: Unremarkable as visualized. Both globes, extraocular muscles, optic nerves and retrobulbar fat appear unremarkable. VASCULATURE: Unremarkable as visualized. Normal flow voids in the major intracranial circulation. MRI/Brain without Contrast IMPRESSION: No acute intracranial abnormality. No interval change. Electronically Signed: Shan Lopez MD at 14:26 EST ,
--- NOTE | 2023-11-15 12:05 | ECHOD_ITS ---
Reason For Study: TIA/CVA Procedure This was a 2D Doppler, Color Flow transthoracic echocardiogram. Exam performed portable in patient room. Left Ventricle Normal LV size. Apical false tendon noted. Left ventricular systolic function is normal. The estimated ejection fraction is 65 %. No regional wall motion abnormalities noted. Right Ventricle Normal RV size. Normal systolic function. Atria Normal left atrium. Normal right atrium. Mitral Valve Bileaflet diffuse mitral valve thickening. Mild (1+) mitral valve insufficiency. Tricuspid Valve Normal tricuspid valve. Trivial tricuspid valve insufficiency. Aortic Valve Trisinus/trileaflet aortic valve. Pulmonic Valve The pulmonic valve is not well visualized. Great Vessels Normal aortic root. The pulmonary artery is normal size. Pericardium/Pleural No pericardial effusion. MMode/2D Measurements & Calculations LVIDd: 4.0 cm IVSd: 0.96 cm Ao root diam: 2.7 cm LVIDs: 2.3 cm LVPWd: 0.86 cm RVDd: 2.2 cm FS: 42.9 % LAV(MOD-bp): 42.1 ml LVAd ap4: 23.6 cm2 LVAd ap2: 22.3 cm2 LAV(MOD-bp) Indexed: 23.0 ml/m2 LVLd ap4: 7.6 cm LVLd ap2: 8.0 cm LAV(MOD-sp2): 37.9 ml EDV(MOD-sp4): 61.6 ml EDV(MOD-sp2): 53.8 ml LAV(MOD-sp4): 34.8 ml EDV(sp4-el): 62.3 ml EDV(sp2-el): 53.2 ml LVAs ap4: 13.0 cm2 LVAs ap2: 12.5 cm2 LVLs ap4: 6.6 cm LVLs ap2: 6.8 cm ESV(MOD-sp4): 22.2 ml ESV(MOD-sp2): 20.5 ml ESV(sp4-el): 21.9 ml ESV(sp2-el): 19.4 ml EF(MOD-sp4): 63.9 % EF(MOD-sp2): 61.9 % EF(sp4-el): 64.8 % SV(MOD-sp4): 39.4 ml SV(MOD-sp2): 33.3 ml SV(sp4-el): 40.4 ml LA dimension(2D): 3.0 cm LA A4 area: 15.8 cm2 RA A4 area: 9.7 cm2 TAPSE: 2.2 cm Time Measurements MV dec time: 0.18 sec Doppler Measurements & Calculations MV E max brandon: 86.8 cm/sec Lat Peak E' Brandon: 12.2 cm/sec Med Peak E' Brandon: 9.9 cm/sec MV A max brandon: 76.2 cm/sec E/E' lat: 7.1 E/E' med: 8.8 MV E/A: 1.1 MV dec slope: 473.5 cm/sec2 Ao V2 max: 128.7 cm/sec LV V1 max: 105.4 cm/sec Ao max P.6 mmHg LV V1 max P.4 mmHg PA V2 max: 82.1 cm/sec TR max brandon: 165.7 cm/sec TR max P.0 mmHg ECHO/Echo Complete Interpretation Summary Normal LV size. Left ventricular systolic function is normal. The estimated ejection fraction is 65 %. Bileaflet diffuse mitral valve thickening. Mild (1+) mitral valve insufficiency. Ordering Physician: Ben Burris Referring Physician: Choco Beavers Performed By: Mallory Wolfe RDCS
[2023-11-15] MEDS: Acetaminophen 500 MG Tablet 1000 MG PO (17:25)
[2023-11-15 18:37] LABS: Bedside Glucose 91 mg/dL (74-106)
[2023-11-16 02:45] VITALS: BP 115/73; PULSE 65; RESP 16; TEMP 35.8; O2SAT 97
[2023-11-16 07:07] LABS: Cholesterol 189 mg/dL (200); High Density Lipoprotein 98 mg/dL; Triglycerides 79 mg/dL; Very Low Density Lipoprotein 16 mg/dL (5-40)
[2023-11-16 07:14] VITALS: O2SAT 95
--- NOTE | 2023-11-16 07:59 | DCINST_ITS ---
Discharge Instructions Diet Discharge Diet: No restrictions Activity Discharge Activity: Return to Normal Activity Weight Bearing Status: Weight bearing as tolerated Dressing / Incision Call your doctor if you observe: Fever of 101 or Higher, Coldness, Increased Pain, Numbness or Tingling, Change in Color, Inability to urinate, Inability to have a bowel movement, Using more than 1 pad per hour, Shortness of breath, Dizziness, Fainting spells, Swelling in the ankles, Chest pain, Prolonged hiccupping, Increased palpitations (irregular heartbeat) and Calf discomfort Follow Up Care When: IN 2 WEEKS Test Results: Test results from this visit will be discussed in further detail at your follow- up appointment, if applicable. Discharge Plan Admission Admit Date/Time: 11/15/23 11:20 Primary Reason for Your Visit: Atypical migraine. Attending Provider: Cooper Jones Primary Care Provider: Choco Beavers Consulting Providers: Nguyễn Jacobson; Katherine Singleton; Andie Irby; Petra Du; Yohana Keating; Ilia Macdonald; Cher Gustafson; Gerson Mayorga; Shadi Benedict; Haylie Padilla; Shin Alanis; Betzy Barry; Elaine Lerma; Sukhdeep Castaneda; Howie De Jesus; Bianca Bazan; Desmond Kim; Rose Chu; Chace Pisano; Ben Burris Instructions Additional Instructions / Restrictions: Advised [id number] 600 mg as needed as needed for severe migraine headache. Follow-up with a neurologist for chronic headache diagnosis and prophylaxis Discharge Orders/Prescriptions Prescriptions: Continued loperamide 2 MG capsule 4 mg PO DAILY Patient Comments: diarrhea alprazolam 0.5 MG tablet 0.5 mg PO TID PRN Patient Comments: anxiety acyclovir 400 MG tablet 400 mg PO DAILY PRN (Reason: cold sore) Patient Comments: anti viral leflunomide 10 MG tablet 10 mg PO DAILY dicyclomine 10 mg capsule 10 mg PO TID PRN (Reason: abdominal cramping) Qty: 30 0RF ondansetron 4 mg tablet,disintegrating 4 mg PO Q8H PRN PRN (Reason: Nausea) Qty: 14 0RF cetirizine 10 mg tablet 10 mg PO DAILY cholecalciferol (vitamin D3) 125 mcg (5,000 unit) tablet 125 mcg PO DAILY pantoprazole [Protonix] 40 mg tablet,delayed release (DR/EC) 40 mg PO DAILY budesonide 3 mg capsule,delayed,extend.release 9 mg PO DAILY bio-identical hormone pellets See Rx Instructions .ROUTE .COMPLEX Patient Comments: every 3-4 months gets one estrogen and one testosterone pellets under skin Rx Instructions: gets one estrogen and one testosterone pellet injucted q 3-4 months; Capsule #0 Capsule 1 cap PO QHS Patient Comments: Take one 100mgiprogesterone capsuleadaily at bedtime.i aspirin [Adult Aspirin Regimen] 81 mg tablet,delayed release (DR/EC) 81 mg PO DAILY Qty: 90 3RF gabapentin 300 mg capsule 300 mg PO QHS PRN (Reason: pain, mild) Referrals / Follow Up: Choco Beavers PA [Primary Care Provider] - Ronni Cameron MD [Non-Staff -Ordering Privileges] - Within 1 Month (For atypical migraine, possible occipital migraine) Disposition Disposition (needs filled in before D/C Order can be placed): Home, Self Care
--- NOTE | 2023-11-16 08:00 | PCM.DC.SUM ---
Providers Date of Admission: 11/15/23 Primary Care Physician: STEFANI Nixon Consultations 11/15/23 12:05 Consult: Tele-Neurology Routine Consulting Provider: [facility] Reason for Consult: left vision loss. EMERGENT Consult: No MD Notified: Yes Date Notified: 11/15/23 Time Notified: 11:22 Method of Notification: Answering Service Nursing Unit Staff Notify [facility] of Tele-Neurology Consult: Yes Reason For Visit: LEFT VISION LOSS Diagnosis Discharge Diagnosis (1) Visual field defect of left eye: Status: Acute Code(s): H53.40 - Unspecified visual field defects Plan Patient was admitted with transient left-sided visual field defect and left hand numbness followed by occipital headache. 1. Visual field defect of left eye send numbness most likely atypical migraine/occipital migraine: Patient being admitted to PCU. Patient stated she had similar incidence in November 25, 2020. She states she has possible migraine headache but is not on any prophylaxis medication or not evaluated by neurologist. Her workup for stroke is negative with MRI brain did not show any acute intracranial abnormality. CTA head and neck reported normal. 2D echo reported EF 65%. Mild MR. The patient was evaluated by [facility] and her own opinion was also similar atypical migraine/occipital migraine. She advised follow-up with a neurologist in outpatient and if needed she might need prophylactic migraine medication. For now advised ibuprofen 600 mg oral 1 dose as needed for acute migraine headache or Tylenol 1 g. Patient is discharged home. Discharge medication reconciliation done. Discharge follow-up instructions completed. Discharge process discussed with the patient and all questions were answered to patient's satisfaction. Follow with PCP in 1 to 2 weeks Total time spent, exact 35 minutes on discharge meds reconciliation, examination, coordination of care with nurses and ancillary staff, review of imaging and blood test and discussion with the patient on follow-up instructions. Clinical Impression(s) from Imaging Studies Brain CT 11/15/23 09:57 IMPRESSION: 1. No acute intracranial abnormality. 2. Aspect score 10. Electronically Signed: Shan Lopez MD at 10:23 EST , ADDENDUM: 11/15/23 1032 IMPRESSION: 1. No acute intracranial abnormality. 2. Aspect score 10. N.B. : The above Results were Read Back by Shan Lopez MD to Diana Muñoz DO, and understanding confirmed on 11/15/2023 10:25:26 (ET). Electronically Signed: Shan Lopez MD at 10:23 EST , Chest X-Ray 11/15/23 09:57 IMPRESSION: No acute cardiopulmonary abnormality. No interval change. Electronically Signed: Shan Lopez MD at 10:59 EST , Head/Neck CTA 11/15/23 09:58 IMPRESSION: Normal CTA Head and CTA Neck Electronically Signed: Shan Lopez MD at 10:35 EST , ADDENDUM: 11/15/23 1043 IMPRESSION: Normal CTA Head and CTA Neck N.B. : The above Results were Read Back by Shan Lopez MD to Diana Muñoz DO, and understanding confirmed on 11/15/2023 10:37:02 (ET). Electronically Signed: Shan Lopez MD at 10:35 EST , Brain MRI 11/15/23 12:05 IMPRESSION: No acute intracranial abnormality. No interval change. Electronically Signed: Shan Lopez MD at 14:26 EST , Echocardiogram 11/15/23 12:05 Interpretation Summary Normal LV size. Left ventricular systolic function is normal. The estimated ejection fraction is 65 %. Bileaflet diffuse mitral valve thickening. Mild (1+) mitral valve insufficiency. Medications at Discharge Home Medications acyclovir 400 mg tablet 400 mg PO DAILY PRN cold sore 04/07/16 alprazolam 0.5 mg tablet 0.5 mg PO TID PRN anxiety 04/07/16 loperamide 2 mg capsule 4 mg PO DAILY diarrhea 04/07/16 leflunomide 10 mg tablet 10 mg PO DAILY RA 11/25/20 aspirin 81 mg tablet,delayed release (Adult Aspirin Regimen) 81 mg PO DAILY #90 tabs 03/18/23 gabapentin 300 mg capsule 300 mg PO QHS PRN pain, mild 06/05/23 dicyclomine 10 mg capsule 10 mg PO TID PRN abdominal cramping #30 caps 09/03/23 ondansetron 4 mg disintegrating tablet 4 mg PO Q8H PRN PRN Nausea #14 tabs 09/03/23 bio-identical hormone pellets See Rx Instructions .Route .COMPLEX 11/15/23 budesonide 3 mg capsule,delayed,extended release 9 mg PO DAILY bowel 11/15/23 cetirizine 10 mg tablet 10 mg PO DAILY allergy 11/15/23 cholecalciferol (vitamin D3) 125 mcg (5,000 unit) tablet 125 mcg PO DAILY 11/15/23 gelatin capsules (empty) (Capsule #0 capsule) 1 cap PO QHS estogen 11/15/23 pantoprazole 40 mg tablet,delayed release (Protonix) 40 mg PO DAILY gerd 11/15/23 Physical Exam Narrative Seen and examined. Patient had transient left-sided visual deficit and numbness of left hand for few seconds to minutes. It is resolved. Patient also felt mild headache on occipital aspect of head. She had similar instance of acute visual deficit in October 2020. Physical exam General: Alert, Oriented x3, Cooperative HEENT: Atraumatic, PERRLA, EOMI, Normocephalic Oral: No Gingival or Mucosal Lesions/ Ulcerations Neck: Supple, No JVD, Negative Carotid Bruits Chest wall/Lungs: Air entry diminished in bilateral lung bases. No crepitation/rhonchi Cardiovascular: Regular rate, Regular Rhythm, Normal S1, Normal S2, systolic murmur present on the right second ICS. Abdomen: Bowel Sounds Present, Soft, Non Tender, Non-Distended : No dysuria. No renal angle tenderness. No suprapubic tenderness. Extremities: No edema, Capillary Refill Less than 3 Seconds Skin: No rashes, No breakdown Musculoskeletal: No Tenderness to Palpation of Joints or Extremities Neurological: Cranial nerves II-XII grossly intact, DTR 2+/4. No acute focal neurological deficit. Psych/Mental Status: Normal Affect, Appropriate. Weight / BMI Weight Weight: 163 lb 2.273 oz Body Mass Index (BMI) 26.3 ABG / Lab / Microbiology Data 11/15/23 10:13 11/15/23 10:13 Laboratory: Laboratory Results - last 24 hr 11/15/23 09:58: POC Glucose 91 11/15/23 10:13: WBC 6.8, RBC 4.54, Hgb 12.6, Hct 41.0, MCV 90.3, MCH 27.8, MCHC 30.7 L, RDW Std Deviation 48.2 H, RDW Coeff of Milla 14.5, Plt Count 253, MPV 11.6, Immature Gran % (Auto) 0.100, Neut % (Auto) 56.9, Lymph % (Auto) 32.5, [place] % (Auto) 7.3, Eos % (Auto) 2.5, Baso % (Auto) 0.7, Absolute Neuts (auto) 3.9, Absolute Lymphs (auto) 2.21, Nucleated RBC % 0, PT 12.6, INR 0.9, APTT 30.8, Sodium 140, Potassium 3.6, Chloride 106, Carbon Dioxide 28.0, Anion Gap 6, BUN 14, Creatinine 0.85, Estim Creat Clear Calc 85.17, Est GFR (MDRD) Af Amer 92, Est GFR (MDRD) Non-Af 76, BUN/Creatinine Ratio 16.4, Glucose 92, Calcium 9.5, Troponin I High Sens 4 11/16/23 06:20: Triglycerides 79, Cholesterol 189, LDL Cholesterol 75, VLDL Cholesterol 16, HDL Cholesterol 98 Radiography Diagnostic Testing: Radiology Impression Brain CT 11/15/23 09:57 IMPRESSION: 1. No acute intracranial abnormality. 2. Aspect score 10. Electronically Signed: Shan Lopez MD at 10:23 EST , ADDENDUM: 11/15/23 1032 IMPRESSION: 1. No acute intracranial abnormality. 2. Aspect score 10. N.B. : The above Results were Read Back by Shan Lopez MD to Diana Muñoz, , and understanding confirmed on 11/15/2023 10:25:26 (ET). Electronically Signed: Shan Lopez MD at 10:23 EST , Chest X-Ray 11/15/23 09:57 IMPRESSION: No acute cardiopulmonary abnormality. No interval change. Electronically Signed: Shan Lopez MD at 10:59 EST Reading Location ID and State: [facility] / [place] Tel , Service support , Head/Neck CTA 11/15/23 09:58 IMPRESSION: Normal CTA Head and CTA Neck Electronically Signed: Shan Lopez MD at 10:35 EST Reading Location ID and State: [facility] / [place] Tel , Service support , ADDENDUM: 11/15/23 1043 IMPRESSION: Normal CTA Head and CTA Neck N.B. : The above Results were Read Back by Shan Lopez MD to Diana Muñoz DO, and understanding confirmed on 11/15/2023 10:37:02 (ET). Electronically Signed: Shan Lopez MD at 10:35 EST , Brain MRI 11/15/23 12:05 IMPRESSION: No acute intracranial abnormality. No interval change. Electronically Signed: Shan Lopez MD at 14:26 EST , Meaningful Use Info Meaningful Use Diagnoses (Choose all that apply): None applicable Discharge Plan Admission Admit Date/Time: 11/15/23 11:20 Primary Reason for Your Visit: Atypical migraine. Attending Provider: Cooper Jones Primary Care Provider: Choco Beavers Consulting Providers: Nguyễn Jacobson; Katherine Singleton; Andie Irby; Petra Du; Yohana Keating; Ilia Macdonald; Cher Gustafson; Gerson Mayorga; Shadi Benedict; Haylie Padilla; Shin Alanis; Betzy Barry; Elaine Lerma; Sukhdeep Castaneda; Howie De Jesus; Bianca Bazan; Desmond Kim; Rose Chu; Chace Pisano; Ben Burris Instructions Additional Instructions / Restrictions: Advised [id number] 600 mg as needed as needed for severe migraine headache. Follow-up with a neurologist for chronic headache diagnosis and prophylaxis Discharge Orders/Prescriptions Prescriptions: Continued loperamide 2 MG capsule 4 mg PO DAILY Patient Comments: diarrhea alprazolam 0.5 MG tablet 0.5 mg PO TID PRN Patient Comments: anxiety acyclovir 400 MG tablet 400 mg PO DAILY PRN (Reason: cold sore) Patient Comments: anti viral leflunomide 10 MG tablet 10 mg PO DAILY dicyclomine 10 mg capsule 10 mg PO TID PRN (Reason: abdominal cramping) Qty: 30 0RF ondansetron 4 mg tablet,disintegrating 4 mg PO Q8H PRN PRN (Reason: Nausea) Qty: 14 0RF cetirizine 10 mg tablet 10 mg PO DAILY cholecalciferol (vitamin D3) 125 mcg (5,000 unit) tablet 125 mcg PO DAILY pantoprazole [Protonix] 40 mg tablet,delayed release (DR/EC) 40 mg PO DAILY budesonide 3 mg capsule,delayed,extend.release 9 mg PO DAILY bio-identical hormone pellets See Rx Instructions .ROUTE .COMPLEX Patient Comments: every 3-4 months gets one estrogen and one testosterone pellets under skin Rx Instructions: gets one estrogen and one testosterone pellet injucted q 3-4 months; Capsule #0 Capsule 1 cap PO QHS Patient Comments: Take one 100mgiprogesterone capsuleadaily at bedtime.i aspirin [Adult Aspirin Regimen] 81 mg tablet,delayed release (DR/EC) 81 mg PO DAILY Qty: 90 3RF gabapentin 300 mg capsule 300 mg PO QHS PRN (Reason: pain, mild) Referrals / Follow Up: Ronni Cameron MD [Non-Staff -Ordering Privileges] - Within 1 Month (For atypical migraine, possible occipital migraine) Choco Beavers PA [Primary Care Provider] - Disposition Disposition (needs filled in before D/C Order can be placed): Home, Self Care Charges/Coding Visit Charges Inpatient E&M: 90361 Disch Hosp >30min
[2023-11-16 09:59] VITALS: BP 106/75; PULSE 68; RESP 16; TEMP 36.5; O2SAT 99
[2023-11-16] MEDS: Acetaminophen 500 MG Tablet 1000 MG PO (10:02)
[2023-11-16] MEDS: Loratadine 10 MG Tablet PO (10:03)
[2023-11-16] MEDS: Budesonide 3 MG CAPSULE.EC 9 MG PO (10:03)
[2023-11-16] MEDS: Pantoprazole Sodium 40 MG Tablet PO (10:03)
[2023-11-16] MEDS: Cholecalciferol (Vit D3) 125 MCG CAPSULE (5,000 UNITS) PO (10:03)
[2023-11-16] MEDS: Aspirin E.C. 81 MG Tablet PO (10:03)
[2023-11-16] MEDS: ALPRAZolam 0.5 MG Tablet PO (10:09)
[2023-11-16] MEDS: Leflunomide 10 MG TABLET PO (10:10)
[2023-11-16] MEDS: Loperamide 2 MG Capsule 4 MG PO (10:10)
[2023-11-16 13:41] VITALS: BMI 26.3
--- NOTE | 2023-11-16 14:46 | CASEMGMT ---
Patient has order for discharge. RN CM in to discuss needs at discharge. Patient denies needs or help at discharge. Patient had no further questions or concerns.
--- NOTE | 2023-11-16 14:55 | STROKE.CONS ---
Assessment and Plan: Stroke Assessment/Plan DERICK SCHUSTER is a 48 F who presents for evaluation of left eye monocular vision changes, left hand/arm weakness in the setting of headache. Her deficits have resolved though headache persists. Neuroimaging has not revealed stroke or other lesions. Her presentation is most consistent with a complex migraine. No further neurovascular work-up required at this stage. HPI Consult Data Date of Consult: 11/16/23 HPI Narrative HPI Narrative: DERICK SCHUSTER is a 48 F who presents for evaluation of left eye monocular vision changes, left hand/arm weakness in the setting of headache. Her deficits have resolved though headache persists. Neuroimaging has not revealed stroke or other lesions. Her presentation is most consistent with a complex migraine. [facility] Medical History Anemia Anxiety Anxiety Arthritis Back pain Cardiology follow-up encounter COVID-19 virus detected (10/01/20) Fatigue Fibromyalgia Gastric reflux Genetic testing of female GERD (gastroesophageal reflux disease) Hair loss Herpes labialis History of echocardiogram History of hiatal hernia History of stress test History of TIA (transient ischemic attack) (11/25/20) Hyperlipidemia IBS (irritable bowel syndrome) Inflammatory polyarthritis Instability of left patellofemoral joint Iron deficiency Left knee pain Leukopenia Migraine headache Non-smoker Patent foramen ovale Post-menopausal Rash Rheumatoid arthritis Rib injury Stiffness of left knee TIA (transient ischemic attack) Vision changes Vitamin A deficiency Wears glasses Home Medications acyclovir 400 mg tablet 400 mg PO DAILY PRN cold sore 04/07/16 [History Last Taken 08/15/17] alprazolam 0.5 mg tablet 0.5 mg PO TID PRN anxiety 04/07/16 [History Last Taken 08/15/17] loperamide 2 mg capsule 4 mg PO DAILY diarrhea 04/07/16 [History Last Taken 08/15/17] leflunomide 10 mg tablet 10 mg PO DAILY RA 11/25/20 [History Last Taken Unknown] aspirin 81 mg tablet,delayed release (Adult Aspirin Regimen) 81 mg PO DAILY #90 tabs 03/18/23 [Rx Last Taken Unknown] gabapentin 300 mg capsule 300 mg PO QHS PRN pain, mild 06/05/23 [History Last Taken Unknown] dicyclomine 10 mg capsule 10 mg PO TID PRN abdominal cramping #30 caps 09/03/23 [Rx Last Taken Unknown] ondansetron 4 mg disintegrating tablet 4 mg PO Q8H PRN PRN Nausea #14 tabs 09/03/23 [Rx Last Taken Unknown] bio-identical hormone pellets See Rx Instructions .Route .COMPLEX 11/15/23 [History Last Taken Unknown] budesonide 3 mg capsule,delayed,extended release 9 mg PO DAILY bowel 11/15/23 [History Last Taken Unknown] cetirizine 10 mg tablet 10 mg PO DAILY allergy 11/15/23 [History Last Taken Unknown] cholecalciferol (vitamin D3) 125 mcg (5,000 unit) tablet 125 mcg PO DAILY 11/15/23 [History Last Taken Unknown] gelatin capsules (empty) (Capsule #0 capsule) 1 cap PO QHS estogen 11/15/23 [History Last Taken Unknown] pantoprazole 40 mg tablet,delayed release (Protonix) 40 mg PO DAILY gerd 11/15/23 [History Last Taken Unknown] Allergy/AdvReac Type Severity Reaction Status Date / Time morphine Allergy Other Verified 09/18/23 07:26 bacitracin AdvReac Rash Verified 09/18/23 07:26 [From Neosporin ([id number])] metoclopramide [From Reglan] AdvReac Other Verified 09/18/23 07:26 metronidazole [From Flagyl] AdvReac Nausea Verified 09/18/23 07:26 neomycin AdvReac Rash Verified 09/18/23 07:26 [From Neosporin ([id number])] polymyxin B AdvReac Rash Verified 09/18/23 07:26 [From Neosporin ([id number])] sucralfate [From Carafate] AdvReac Nausea Verified 09/18/23 07:26 Family History Grandmother Uterine cancer Uncle Lung cancer Grandmother No problems noted. Grandfather Prostate cancer Sister Migraine Surgical History H/O LEEP History of cholecystectomy History of hysterectomy History of right salpingo-oophorectomy History of tonsillectomy Hx of foot surgery Social History (Updated 11/15/23 @ 12:27 by Mary Smith) household members: family housing: house current occupational status: employed current occupation: [employer] current occupational exposures/hazards: No pets and animals: No sexually active: Yes Smoking Status: Never smoker alcohol intake: never substance use type: does not use caffeine: Yes seatbelt use: always Vital Signs Vital Signs Vital Signs: 11/15/23 16:01 11/15/23 17:18 11/15/23 20:07 Temperature 98 F Temperature Source Oral Pulse Rate 77 Pulse Strength Weak (1+) Respiratory Rate 14 Respiratory Effort Respiratory Depth Respiratory Pattern Blood Pressure 136/92 H Blood Pressure Mean 106 Blood Pressure Source Monitor Blood Pressure Position Semi-Fowlers Blood Pressure Location Left Arm Pulse Ox 99 Oxygen Delivery Method Room Air Room Air 11/15/23 19:40 11/15/23 20:43 11/16/23 02:45 Temperature 98.3 F 96.5 F L Temperature Source Temporal Temporal Pulse Rate 79 65 Pulse Strength Respiratory Rate 18 16 Respiratory Effort Normal Non-Labored Respiratory Depth Normal Respiratory Pattern Normal Blood Pressure 118/70 115/73 Blood Pressure Mean 86 87 Blood Pressure Source Monitor Monitor Blood Pressure Position Semi-Fowlers Semi-Fowlers Blood Pressure Location Left Arm Left Arm Pulse Ox 98 97 Oxygen Delivery Method Room Air Room Air Room Air 11/16/23 02:45 11/16/23 07:14 11/16/23 09:59 Temperature 97.7 F L Temperature Source Temporal Pulse Rate 68 Pulse Strength Respiratory Rate 16 Respiratory Effort Normal Non-Labored Respiratory Depth Normal Respiratory Pattern Normal Blood Pressure 106/75 Blood Pressure Mean 85 Blood Pressure Source Monitor Blood Pressure Position Semi-Fowlers Blood Pressure Location Left Arm Pulse Ox 95 99 Oxygen Delivery Method Room Air Room Air Room Air 11/16/23 10:00 11/16/23 10:00 Temperature Temperature Source Pulse Rate Pulse Strength Weak (1+) Respiratory Rate Respiratory Effort Normal Non-Labored Respiratory Depth Normal Respiratory Pattern Normal Blood Pressure Blood Pressure Mean Blood Pressure Source Blood Pressure Position Blood Pressure Location Pulse Ox Oxygen Delivery Method Room Air Weight Weight: 74 kg Body Mass Index (BMI) 26.3 NIHSS NIHSS Nursing Documentation NIHSS Nursing Documentation: NIHSS: Ischemic Stroke/TIA Start: 11/15/23 12:05 Text: For ICU Patients: NIH sroke scale at Status: Complete presentation and every 2 hours or with change in RN caregiver Freq: [id number] Protocol: Activity Type Activity Date Activity User E-sign Co-sign Detail Recorded Client Recorded Date Recorded By Document 11/15/23 12:34 DS Desktop 11/15/23 12:35 DS 11/15/23 12:34 NIH Stroke Scale [NIHSS] A score of 0 is normal or asymptomatic . Total possible score is 42. Inpatient: RN or Physician to activate a stroke alert for onset of new stroke symptoms or with NIHSS increase >/= 3 points. Following change in neurological status, NIHSS will be performed per physician order or more frequently PRN. -1a. Level of Consciousness Alert; keenly responsive -1b. LOC Questions Answers BOTH questions correctly. -1c. LOC Commands Performs both tasks correctly . -2. Best Gaze Normal -3. Visual No visual loss -4. Facial Palsy Normal symmetrical movements -5a. Left Arm No drift; arm holds 90 (or 45 ) degrees for full 10 seconds -5b. Right Arm No drift; arm holds 90 (or 45 ) degrees for full 10 seconds -6a. Left Leg No drift; leg holds 30-degree position for full 5 seconds -6b. Right Leg No drift; leg holds 30-degree position for full 5 seconds -7. Limb Ataxia Absent -8. Sensory Normal; no sensory loss -9. Best Language No aphasia; normal -10. Dysarthria Normal -11. Extinction and Inattention No abnormality -Total 0 Query Text:A score of 0 is normal or asymptomatic. Total possible score is 42 . ED: Notify Physician for NIHSS increase by > / = 3 points. Inpatient: RN or Physician to activate a stroke alert for NIHSS increase of > / = 3 points. Coma Scale [Assess] -Eye Opening Spontaneous -Motor Obeys Commands -Verbal Oriented [Total] -Coma Scale Total 15 Physical Exam Narrative Normal tele-neuro exam Lab / Micro Data 11/15/23 10:13 11/15/23 10:13 Labs: Laboratory Results - last 24 hr 11/15/23 09:58: POC Glucose 91 11/16/23 06:20: Triglycerides 79, Cholesterol 189, LDL Cholesterol 75, VLDL Cholesterol 16, HDL Cholesterol 98 Imaging Radiology Impression Echocardiogram 11/15/23 12:05 Interpretation Summary Normal LV size. Left ventricular systolic function is normal. The estimated ejection fraction is 65 %. Bileaflet diffuse mitral valve thickening. Mild (1+) mitral valve insufficiency. Ordering Physician: Ben Burris Referring Physician: Choco Beavers Performed By: Mallory Wolfe RDCS Active Medications Active Medications Active Medications: Current Medications Generic Name Dose Route Start Last Admin Trade Name Freq PRN Reason Stop Dose Admin Acetaminophen 1,000 mg 11/15/23 12:05 11/16/23 10:02 Acetaminophen 500 Mg Tablet PO 1,000 mg Q8 PRN Administration HEADACHE Alprazolam 0.5 mg 11/15/23 12:05 11/16/23 10:09 Alprazolam 0.5 Mg Tablet PO 0.5 mg DAILY PRN Administration ANXIETY Aspirin 81 mg 11/16/23 08:00 11/16/23 10:03 Aspirin E.C. 81 Mg Tablet PO 81 mg DAILYCM DARSHAN Administration Budesonide 9 mg 11/16/23 10:00 11/16/23 10:03 Budesonide 3 Mg Capsule.Ec PO 9 mg DAILY DARSHAN Administration Cholecalciferol 125 mcg 11/16/23 10:00 11/16/23 10:03 Cholecalciferol (Vit D3) 125 Mcg Capsule (5,000 Units) PO 125 mcg DAILY DARSHAN Administration Dicyclomine HCl 10 mg 11/16/23 08:20 Dicyclomine 10 Mg Capsule PO TID PRN abdominal cramping Gabapentin 300 mg 11/16/23 08:20 Gabapentin 300 Mg Capsule PO QHS PRN pain, mild Hydralazine HCl 5 mg 11/15/23 12:05 Hydralazine 20 Mg/Ml Vial IV Q30M PRN to maintain BP goals Sodium Chloride 250 mls @ 15 mls/hr 11/15/23 12:06 IV .[id number] PRN Additional IVPB Infusion Sodium Chloride 250 mls @ 15 mls/hr 11/15/23 12:06 IV .[id number] PRN Saline Flush Ibuprofen 600 mg 11/15/23 12:05 Ibuprofen 600 Mg Tablet PO Q6H PRN PRN Pain Score 1-10 Labetalol HCl 10 - 20 mg 11/15/23 12:05 Labetalol (Prefilled) 20 Mg/4 Ml IV Q10M PRN PRN to Maintain BP Goals Leflunomide 10 mg 11/16/23 10:00 11/16/23 10:10 Leflunomide 10 Mg Tablet PO 10 mg DAILY DARSHAN Administration Loperamide HCl 4 mg 11/16/23 10:00 11/16/23 10:10 Loperamide 2 Mg Capsule PO 4 mg DAILY DARSHAN Administration Loratadine 10 mg 11/16/23 10:00 11/16/23 10:03 Loratadine 10 Mg Tablet PO 10 mg DAILY DARSHAN Administration Non-Formulary Medication 1 cap 11/16/23 22:00 Gelatin Capsules (Empty) [Capsule #0] PO QHS DARSHAN Ondansetron HCl 4 mg 11/15/23 12:05 Ondansetron 4 Mg/2 Ml Vial IV Q8H PRN PRN NAUSEA/VOMITING Pantoprazole Sodium 40 mg 11/16/23 10:00 11/16/23 10:03 Pantoprazole Sodium 40 Mg Tablet PO 40 mg DAILY DARSHAN Administration Sodium Chloride 10 - 40 ml 11/15/23 12:06 0.9% Saline Lock 10 Ml Syringe IV UD PRN SALINE FLUSH
[2023-11-16 15:03] VITALS: BP 104/89; PULSE 81; RESP 16; TEMP 36.2; O2SAT 100
== END 2023-11-16 07:59 | disposition home or self-care (01) ==
LOC: ED 10:43 → PCU 11:13
PROVIDERS: Emergency Provider Emergency Medicine; PCP Physician Assistant; Visit Provider Internal Medicine
DX: G43.909 Migraine, unspecified, not intractable, without status migrainosus (principal); M06.9 Rheumatoid arthritis, unspecified; H53.40 Unspecified visual field defects; I10 Essential (primary) hypertension; M79.7 Fibromyalgia; E78.5 Hyperlipidemia, unspecified; Z86.16 Personal history of COVID-19; Z79.899 Other long term (current) drug therapy; Z79.82 Long term (current) use of aspirin; Z79.51 Long term (current) use of inhaled steroids; R53.1 Weakness; R20.0 Anesthesia of skin
CPT/HCPCS: 70450; 70496; 70498; 70551; 71045; 80048; 80061; 82962; 84484; 85025; 85610; 85730; 93005; 93306; 99221; 99284; Q9967; G0378

== ENCOUNTER → 2023-12-01 | Outpatient (CLI) | payer OTHER, SELFPAY ==
--- OUTSIDE RECORDS SUMMARY | 2023-12-01 08:03 | XMS RPT_ITS | CCD ---
Author Name Unknown Address [address] [place] [address] Organization [facility] Care Team Providers Care Telecasting Technician Name Role Phone MD Lisa, Isai Cristobal Unavailable Whit RN, Zenaida Good Unavailable Unavailable Betzy RICARDO, Joyce Rabago Unavailable [phone] KIDD PA-C, GINO Angelica Primary Care Physician [...] KIDD, GINO PA-C Consulting Unavailable AMICONE GIANNASuellen SANABRIAN-PERSONAL CLOTHING LAUNDRY AIDE Attending Unavailab le AMICONE, GIANNA STONE DRILLER-PERSONAL CLOTHING LAUNDRY AIDE Primary Care Unavailab le AMICONE, GIANNA STONE DRILLER-PERSONAL CLOTHING LAUNDRY AIDE Admitting Unavailab le PROVIDER, UNKNOWN Consulting Unavailable [...] ESHENAUR, MATHIEU PA-C Admitting Unavailab le KIDD, IGNO PA-C Consulting Unavailable ESHENAUR, MATHIEU PA-C Attending Unavailab le ESHENAUR, MATHIEU PA-C Primary Care Unavailab le PROVIDER, UNKNOWN Consulting Unavailable KIDD, GINO PA-C Referring Unavailable KIDD, GINO PA-C Consulting Unavailable TOREY, DR SHENG Aguilar Attending Unavailable TOREY, DR SHENG Aguilar Primary Care Unavailable TOREY, DR SHENG Aguilar Admitting Unavailable PROVIDER, UNKNOWN Consulting Unavailable ALEXANDRA WEIR Admitting Unavailable ALEXANDRA WEIR Attending Unavailable ALEXANDRA WEIR M Primary Care Unavailable WALDO LOPEZ MD [...] PEDRO [place] Attending Unavaila ble BENJY, DR PEDOR [place] Primary Care Unavaila ble BENJY, DR [...] Ariannake E Unavailable Hematology Provider Unavailable Unavailable [facility] Unavailable [facility]ropractic Provider [facility] Unavailable Unavailable Friend, Dr. Valera Unavailable [facility] Unavailable Dany RAMOS, Dr. Brandt Unavailable Dr. Maureen Monique MD Unavailable Dr. Izzy Yoo DO Unavailable [phone] [facility] Unavailable Dr. Pedro Boggs MD Unavailable Xavier RAMOS, Dr. Leiva Unavailable Rosa RICARDO, Gracie Unavailable Unavailable Stella HAND SPRING REPAIRER, Michelle Unavailable Kidd PA-C, Gino J Unavailable Torin Maldonado MD Unavailable Day HAND SPRING REPAIRER, Pam Unavailable Unavailable Jason HAND SPRING REPAIRER, Aleja E Unavailable Unavailable Airam BAH, Kelly Unavailable Unavailable Gogoi (scribe), Hemanta Unavailable Unavaila ble Kevin HAND SPRING REPAIRER, Annalee Unavailable Unavailable Williams RAMOS, Tanner Good Unavailable Saulo ZACARIASC, Flora Winchester Unavailable Ruthann RN, Mandy Rabago Unavailable Unavail able Akshat HAND SPRING REPAIRER, Joyce Unavailable Unavailable Chip RICARDO, Flora Good Unavailable Unavaila ble Marthey HAND SPRING REPAIRER, Radha Unavailable Unavailable Gerardo HAND SPRING REPAIRER, Cosme Unavailable Unavailable Fredy (Scribe), Brent Unavailable Unavailab edmund Watson RN, Nimco Unavailable [phone] Samantha RICARDO, Shira Love Unavailable Unavailable Garcia HAND SPRING REPAIRER, Radha Unavailable Unavailable Mutersbaugh HAND SPRING REPAIRER, Skyla K Unavailable Unavai shannon Christian PA-C, Kathryn J Unavailable [phone] Viktor (Scribe), Alex Unavailable Unavailab le Ribeiro, Gracie L Unavailable Richert HAND SPRING REPAIRER, Jenifer L Unavailable Unavailab le Ange HAND SPRING REPAIRER, Julia M Unavailable Unavailab le Clemente HAND SPRING REPAIRER, Grace Katz Unavailable Unavailab edmund Keating MA, Joyce Unavailable Unavailable Magda RAMOS, Elo Good Unavailable Vess HAND SPRING REPAIRER, Neilee L Unavailable Unavailable Wengerd HAND SPRING REPAIRER, Karly Unavailable Unavailabl e [place] HAND SPRING REPAIRER, Sabiha N Unavailable Unavaila ble Zaugg HAND SPRING REPAIRER, Mckenna Unavailable Unavailable Unavailable Unavailable Infectious Disease Provider Unavailable [facility] Unavailable Allergies Allergy Classification Reported Allergen(s) Allergy Type Date of Onset Reaction(s) Facility (6 sources) bacitracin / neomycin / polymyxin b; Translations: [bacitracin / neomycin / polymyxin B] Drug Allergy 7 Eruption of skin (disorder) [facility] Work Phone: (5 sources) metroNIDAZOLE; Translations: [Metronidazole] Drug Allergy 7 Vomiting (disorder) [facility] Work Phone: (8 sources) morphine; Translations: [Morphine] Drug Allergy 5 Headache (finding), Vomiting (disorder), Other: See Comments [facility] Work Phone: (4 sources) Sucralfate; Translations: [sucralfate] Drug Allergy 1 Nausea (finding), GI Upset [facility] (2 sources) bacitracin / neomycin / polymyxin b Drug Allergy 5 Rash [facility] Work Phone: (10 sources) metroNIDAZOLE Drug Allergy 0 GI Upset [facility] (1 source) 12/08/17 (+) CDIFF; Translations: [12/08/17 (+) CDIFF] Propensity to adverse reactions (disorder) [facility] Repository (1 source) 10/19/2019 (+) CDIFF AG; Translations: [10/19/2019 (+) CDIFF AG] Propensity to adverse reactions (disorder) [facility] Repository (1 source) 11/03/2019 (-) CDIFF; Translations: [11/03/2019 (-) CDIFF] Propensity to adverse reactions (disorder) [facility] Rep[facility] (1 source) 08/10/2020 (+) CDIFF AG; Translations: [08/10/2020 (+) CDIFF AG] Propensity to adverse reactions (disorder) [facility] Repository (1 source) 01/24/21 (+) CDIFF AG; Translations: [01/24/21 (+) CDIFF AG] Propensity to adverse reactions (disorder) [facility] Repository (8 sources) Miconazole Drug Allergy [employer]; [employer] (8 sources) Morphine Drug Allergy [employer]; [employer] NEGATED: Highlighted row has been ruled out! (1 source) 3 [employer] NEGATED: Highlighted row has been ruled out! (1 source) 3 [employer] NEGATED: Highlighted row has been ruled out! (1 source) 3 [employer] NEGATED: Highlighted row has been ruled out! (1 source) 3 [employer] NEGATED: Highlighted row has been ruled out! (1 source) 3 [employer] NEGATED: Highlighted row has been ruled out! (1 source) 3 [employer] NEGATED: Highlighted row has been ruled out! (1 source) 3 [employer] NEGATED: Highlighted row has been ruled out! (1 source) 3 [employer] Medications Current Medications Medication Drug Class(es) Dates [...] / oxyCODONE hydrochloride 5 mg oral tablet (8 sources) Opioid Agonist Start: 05-20-2018 End: 05-23-2018 acetaminophen 325 mg / traMADol hydrochloride 37.5 mg oral tablet (8 sources) Opioid Agonist Start: 12-02-2011 End: 07-02-2012 aluminum chloride 200 mg/ml topical solution (8 sources) Start: 10-19-2019 End: 03-25-2021 atorvastatin 40 mg oral tablet (8 sources) HMG-CoA Reductase Inhibitor atropine sulfate 0.025 mg / diphenoxylate hydrochloride 2.5 mg oral tablet (8 sources) Anticholinergic, Cholinergic Muscarinic Antagonist, Antidiarrheal Start: 11-12-2018 End: 02-14-2020 Azithromycin (20 sources) Macrolide Antimicrobial Start: 10-10-2022 End: 12-02-2022 Problems Active Problems Problem Classification Problem Date Documented Da te Episodic/Chronic Abdominal pain (20 sources) Epigastric pain; Translations: [Epigastric pain] Onset: 0 Episodic Allergic reactions (20 sources) Allergic reaction; Translations: [Allergy, unspecified, initial encounter] 01-20-2023 Episodic Anxiety disorders (10 sources) Anxiety; Translations: [Anxiety state] 07-31-2021 Chronic Blindness and vision defects (13 sources) Blurring of visual image; Translations: [Myopia] Onset: 7 08-24-2017 Episodic Cardiac and circulatory congenital anomalies (10 sources) Patent foramen ovale; Translations: [Ostium secundum [...] 09-16-2023 Episodic Diseases of mouth; excluding dental (8 sources) Cheilitis; Translations: [Diseases of lips] 09-16-2023 Episodic Disorders of lipid metabolism (20 sources) Hyperlipidemia; Translations: [Hyperlipidemia, unspecified] 09-16-2023 Chronic Esophageal disorders (10 sources) Gastroesophageal reflux disease; Translations: [Gastro-esophageal reflux disease without esophagitis] 08-15-2021 Chronic Genitourinary symptoms and ill-defined conditions (20 sources) Dysuria; Translations: [Dysuria] 12-06-2013 Episodic Headache; including migraine (10 sources) Migraine; Translations: [Migraine, unspecified, without mention [...] initial encounter] Onset: Episodic Malaise and fatigue (16 sources) Fatigue; Translations: [Other fatigue] 09-16-2023 Episodic Mycoses (20 sources) Candidiasis of mouth; Translations: [Candidal stomatitis] 09-16-2023 Episodic Nausea and vomiting (8 sources) Nausea; Translations: [Nausea] 12-16-2018 Episodic Noninfectious gastroenteritis (20 sources) Colitis; Translations: [Noninfective gastroenteritis and colitis, unspecified] 07-31-2021 Episodic Nonspecific chest pain (16 sources) Chest pain; Translations: [Chest pain, unspecified] 12-15-2018 Episodic Nutritional deficiencies (20 sources) Vitamin D deficiency; Translations: [Vitamin D deficiency, unspecified] 09-16-2023 Chronic Nutritional deficiencies (20 sources) Cobalamin deficiency; Translations: [Deficiency of other specified B group vitamins] 09-16-2023 Episodic Other aftercare (8 sources) Long-term (current) use of other medications 12-06-2013 Episodic Other and unspecified benign neoplasm (2 sources) Polyp of colon; Translations: [Polyp of colon] 11-03-2014 Episodic Other and unspecified benign neoplasm (8 sources) Lipoma (clinical); Translations: [Benign lipomatous neoplasm, unspecified] 12-20-2016 Episodic Other bone disease and musculoskeletal deformities (8 sources) Costal chondritis; Translations: [Chondrocostal junction syndrome [Tietze]] 12-15-2018 Episodic Other circulatory disease (16 sources) History of transient ischemic attack; Translations: [Personal history of transient ischemic attack (TIA), and cerebral infarction without residual deficits] 09-16-2023 Episodic Other connective tissue disease (8 sources) Fibromyalgia; Translations: [Fibromyalgia] 09-16-2023 Episodic Other connective tissue disease (8 sources) Pain in lower limb; Translations: [Pain in leg, unspecified] 11-13-2021 Episodic Other ear and sense organ disorders (16 sources) Pain of ear structure; Translations: [Otalgia, unspecified ear] 12-15-2018 Episodic Other ear and sense organ disorders (16 sources) Excessive cerumen in ear canal ; Translations: [Impacted cerumen, unspecified ear] 12-15-2018 Episodic Other gastrointestinal disorders (2 sources) Irritable bowel syndrome 07-31-2021 Chronic Other gastrointestinal disorders (8 sources) Irritable bowel syndrome with diarrhea; Translations: [Irritable bowel syndrome with diarrhea] 09-16-2023 Chronic Other gastrointestinal disorders (20 sources) Diarrhea; Translations: [Diarrhea, unspecified] Onset: 1 01-24-2011 Episodic Other gastrointestinal disorders (8 sources) Antibiotic-associated diarrhea; Translations: [Toxic gastroenteritis and colitis] 09-16-2023 Episodic Other inflammatory condition of skin (8 sources) Itching ; Translations: [Pruritus, unspecified] 12-15-2018 Episodic Other injuries and conditions due to external causes (8 sources) Injury of ribs; Translations: [Unspecified injury of thorax, initial encounter] 09-16-2023 Episodic Other nervous system disorders (2 sources) Plantar nerve lesion; 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, unspecified lower limb] Onset: 0 05-15-2010 Chronic Other non-traumatic joint disorders (8 sources) Pain in left knee; Translations: [Pain in joint, lower leg] 09-16-2023 Episodic Other skin disorders (16 sources) Loss of hair; Translations: [Nonscarring hair loss, unspecified] 09-16-2023 Episodic Other skin disorders (8 sources) Eruption; Translations: [Rash and other nonspecific skin eruption] 09-16-2023 Episodic Other upper respiratory infections (8 sources) Sinusitis; Translations: [Chronic sinusitis, unspecified] 12-15-2018 Chronic Other upper respiratory infections (20 sources) Acute pharyngitis; Translations: [Acute pharyngitis, unspecified] 11-12-2017 Episodic Pancreatic disorders (not diabetes) (8 sources) Pancreatitis; Translations: [Acute pancreatitis without necrosis or infection, unspecified] 09-16-2023 Episodic Pneumonia (except that caused by tuberculosis or sexually transmitted disease) (8 sources) Pneumonia; Translations: [Pneumonia, unspecified organism] 12-06-2013 Episodic Residual codes; unclassified (20 sources) Body mass index 20-24 - normal; Translations: [Body mass index (BMI) 21.0-21.9, adult] 12-15-2018 Episodic Residual codes; unclassified (8 sources) Family history of neoplasm; Translations: [Family history of other specified conditions] 09-16-2023 Episodic Residual codes; unclassified (8 sources) Viral syndrome; Translations: [Other general symptoms and signs] 09-16-2023 Episodic Rheumatoid arthritis and related disease (8 sources) Inflammatory polyarthropathy; Translations: [Inflammatory polyarthropathy] 09-16-2023 Chronic Spondylosis; intervertebral disc disorders; other back problems (8 sources) Backache; Translations: [Dorsalgia, unspecified] 09-16-2023 Episodic Superficial injury; contusion (8 sources) Contusion of right toe; Translations: [Contusion [...] unspecified; Translations: [Cough, unspecified] Onset: 1 Unclassified (8 sources) 01-20-2023 Unclassified (8 sources) 01-20-2023 Unclassified (8 sources) 01-20-2023 Urinary tract infections (16 sources) Urinary tract infection, site not specified; [...] Vital Sign Value Performing Clinician Faci lity 11-30-2023 14:27-0500 Body height 168.91 cm Kelly Alegria MA [facility], [facility]. 11-30-2023 14:27-0500 Body mass index (BMI) [Ratio] 26.71 kg/m2 Kelly Airam [facility], [facility].; [facility]. 11-30-2023 14:27-0500 Body surface area Derived from formula 1.87 m2 Kelly Airam [facility].; [facility]. 11-30-2023 14:27-0500 Body temperature 97.6 [degF] Kellyvalerio Hodgeyohan [facility], [facility].; [facility]. 11-30-2023 14:270500 Body weight 76.2 kg Kellyvalerio Hodgeyohan [facility].; [facility], [facility]. 11-30-2023 14:270500 Diastolic blood pressure 86 mm[Hg] Kelly Airam [facility].; [facility], [facility]. 11-30-2023 14:27-0500 Heart rate 83 /min Kelly Alegria MA [facility].; [facility], [facility]. 11-30-2023 14:27-0500 Inhaled oxygen concentration 20 % Kellyvalerio Hodgeyohan [facility].; [facility], [facility]. 11-30-2023 14:27-0500 SaO2% (BldA) [Mass fraction] 97 % Kellyvalerio Hodgeyohan [facility].; [facility], [facility]. 11-30-2023 14:27-0500 Systolic blood pressure 146 mm[Hg] Kelly Alegria MA [facility].; [facility], [facility]. 09-16-2023 15:16-0500 Body weight 73.48 kg Cosme Carrillo LPN [facility], [facility].; [facility], [facility]. 09-16-2023 15:16-0500 Diastolic blood pressure 70 mm[Hg] Cosme Carrillo LPN [facility], [facility].; [facility], [facility]. 09-16-2023 15:16-0500 Heart rate 87 /min Cosme Carrillo LPN [facility], [facility].; [facility], [facility]. 09-16-2023 15:16-0500 Systolic blood pressure 115 mm[Hg] Cosme Carrillo LPN [facility].; [facility], [facility]. 09-03-2023 13:37-0500 Body temperature 96.5 [degF] Cosme Carrillo LPN [facility], [facility].; [facility], [facility]. 09-03-2023 13:37-0500 Body weight 72.58 kg Cosme Carrillo LPN [facility], [facility]. 09-03-2023 13:37-0500 Inhaled oxygen concentration 20 % Cosme Carrillo HAND SPRING REPAIRER [facility], [facility].; [facility], [facility]. 09-03-2023 13:37-0500 SaO2% (BldA) [Mass fraction] 96 % Cosme Carrillo HAND SPRING REPAIRER [facility], [facility].; [facility], [facility]. 08-26-2023 15:10-0500 Body temperature 97.7 [degF] Cosme Carrillo HAND SPRING REPAIRER [facility], [facility].; [facility], [facility]. 08-26-2023 15:10-0500 Body weight 72.58 kg Cosme Carrillo HAND SPRING REPAIRER [facility], [facility].; [facility], [facility]. 08-26-2023 15:10-0500 Diastolic blood pressure 80 mm[Hg] Cosme Carrillo HAND SPRING REPAIRER [facility], [facility].; [facility], [facility]. 08-26-2023 15:10-0500 Heart rate 78 /min Cosme Carrillo HAND SPRING REPAIRER [facility], [facility].; [facility], [facility]. 08-26-2023 15:10-0500 Inhaled oxygen concentration 20 % Cosme Carrillo HAND SPRING REPAIRER [facility], [facility].; [facility], [facility]. 08-26-2023 15:10-0500 SaO2% (BldA) [Mass fraction] 97 % Cosme Carrillo HAND SPRING REPAIRER [facility], [facility].; [facility], [facility]. 08-26-2023 15:10-0500 Systolic blood pressure 120 mm[Hg] Cosme Carrillo HAND SPRING REPAIRER [facility] [place] [employer] [facility] 03-16-2023 15:06-0400 Body temperature 96.1 [degF] Cosmesourav Carrillo ROSHNI [facility], [facility].; [facility], [facility]. 03-16-2023 15:06-0400 Body weight 68.04 kg Cosme Gerardojuanito BARAKAT [facility], [facility].; [facility], [facility]. 03-16-2023 15:06-0400 Diastolic blood pressure 83 mm[Hg] Cosme Carrillo LPN [facility] 03-16-2023 15:06-0400 Heart rate 73 /min Cosme Carrillo LPN [facility] [employer] [facility] 03-16-2023 15:06-0400 Systolic blood pressure 131 mm[Hg] Cosme Gerardojuanito BARAKAT [facility] [place] [employer] [facility], [facility]. 01-20-2023 09:15-0400 Body height 168.91 cm Joyce Keating MA [facility], [facility].; [facility], [facility]. 01-20-2023 09:15-0400 Body mass index (BMI) [Ratio] 22.42 kg/m2 Joyce Keating MA [facility], [facility].; [place] [employer] [facility], [facility]. 01-20-2023 09:15-0400 Body surface area Derived from formula 1.73 m2 Joyce Keating MA [facility], [facility].; [place] [employer] [facility], [facility]. 01-20-2023 09:15-0400 Body weight 63.96 kg Joyce Keating MA [facility], [facility].; [employer] [facility], [facility]. 01-20-2023 09:15-0400 Diastolic blood pressure 76 mm[Hg] Joyce Keating MA [facility], [facility].; [employer] [facility], [facility]. 01-20-2023 09:15-0400 Heart rate 59 /min Joyce Keating MA [facility], [facility].; [employer] [facility], [facility]. 01-20-2023 09:15-0400 Systolic blood pressure 121 mm[Hg] Joyce Keating MA [facility], [facility].; [employer] [facility] 12-16-2022 13:17-0400 Body height 168.91 cm Joyce Keating MA [facility], [facility].; [place] [employer] [facility], [facility]. 12-16-2022 13:17-0400 Body mass index (BMI) [Ratio] 21.94 kg/m2 Joyce Keating MA [facility], [facility].; [employer] [facility] [employer]. 12-16-2022 13:170400 Body surface area Derived from formula 1.72 m2 Joyce Keating MA [facility], [facility].; [employer] 12-16-2022 13:170400 Body weight 62.6 kg Joyce Keating MA [facility], [facility].; [employer], [facility]. 12-16-2022 13:170400 Diastolic blood pressure 80 mm[Hg] Joyce Keating MA [facility], [facility].; [employer] [facility], [facility]. 12-16-2022 13:17040 Heart rate 71 /min Joyce Keating MA [facility], [facility].; [employer] [facility], [facility]. 12-16-2022 13:17-0400 Systolic blood pressure 121 mm[Hg] Joyce Keating MA [facility], [facility].; [employer], [facility]. 10-10-2022 13:28-050 Body height 168.91 cm Flora Saunders RN [place] [employer] [facility].; [employer] 10-10-2022 13:28-0500 Body mass index (BMI) [Ratio] 21.94 kg/m2 Flora Saunders RN [employer] [facility].; [employer] 10-10-2022 13:28-0500 Body surface area Derived from formula 1.72 m2 Flora Saunders RN [place] [employer] [facility].; [employer] 10-10-2022 13:28-0500 Body temperature 98.5 [degF] Flora Saunders RN [place] [employer] [facility].; [employer] 10-10-2022 13:28050 Body weight 62.6 kg Flora Saunders RN [place] [employer] [facility].; [employer], [employer] 10-10-2022 13:28-0500 Diastolic blood pressure 81 mm[Hg] Flora Saunders RN [employer] [facility].; [employer] 10-10-2022 13:28-0500 Heart rate 72 /min Flora Saunders RN [facility].; [facility]. 10-10-2022 13:28-0500 Inhaled oxygen concentration 20 % Flora Saunders RN [facility].; [facility] [employer] 10-10-2022 13:28-0500 SaO2% (BldA) [Mass fraction] 95 % Flora Saunders RN [facility].; [place] [employer] 10-10-2022 13:28-0500 Systolic blood pressure 120 mm[Hg] Flora Saunders RN [facility].; [place] [employer] [facility], [facility]. 09-26-2022 13:06-0500 Body height 168.91 cm Kelly Alegria MA [facility].; [facility] [facility], [facility]. 09-26-2022 13:06-0500 Body mass index (BMI) [Ratio] 22.1 kg/m2 Kelly Alegria MA [facility].; [place] [employer]. 09-26-2022 13:06-0500 Body surface area Derived from formula 1.72 m2 Kelly Algeria MA [facility].; [place] [employer] 09-26-2022 13:06-0500 Body temperature 97.3 [degF] Kelly [facility]leg[facility].; [place] [employer] 09-26-2022 13:06-0500 Body weight 63.05 kg Kelly Alegria MA [facility].; [place] [employer] [facility]. 09-26-2022 13:06-0500 Diastolic blood pressure 92 mm[Hg] Kelly Alegria MA [facility].; [facility] [employer]. 09-26-2022 13:06-0500 Heart rate 65 /min Kelly Alegria MA [facility].; [place] [employer] Inc[employer] 09-26-2022 13:06-0500 Inhaled oxygen concentration 20 % Kelly Alegria MA [facility].; [place] [employer]. 09-26-2022 13:06-0500 SaO2% (BldA) [Mass fraction] 96 % Kelly Alegria MA [facility], Inc.; [employer] 09-26-2022 13:06-0500 Systolic blood pressure 138 mm[Hg] Kelly Alegria MA [facility], Inc.; [employer] 07-15-2022 13:01-0400 Body height 168.91 cm Ashwini Clemente [facility], Inc.; [employer] 07-15-2022 13:01-0400 Body mass index (BMI) [Ratio] 21.94 kg/m2 [facility] Clemente [facility], Inc.; [employer] 07-15-2022 13:01-0400 Body surface area Derived from formula 1.72 m2 Grace Cornejo HAND SPRING REPAIRER [place] [employer] [facility], Inc.; [employer] 07-15-2022 13:01-0400 Body weight 62.6 kg Ashwini Stuckey [facility] [employer] [facility], Inc.; [employer] 07-15-2022 13:01-0400 Diastolic blood pressure 88 mm[Hg] Ashwini Stuckey [facility] [employer] [facility], Inc.; [employer] 07-15-2022 13:01-0400 Heart rate 80 /min Grace Cornejo [facility] [employer] [facility], Inc.; [employer] 07-15-2022 13:01-0400 Systolic blood pressure 138 mm[Hg] Grace Cornejo HAND SPRING REPAIRER [place] [employer] [facility], Inc.; [employer] 06-23-2022 14:16-0400 Body height 168.91 cm Flora Saunders RN [place] [employer] [facility], [employer]; [employer] 06-23-2022 14:16-0400 Body mass index (BMI) [Ratio] 22.42 kg/m2 Flora Saunders RN [place] [employer] [facility], Inc.; [employer] 06-23-2022 14:16-0400 Body surface area Derived from formula 1.73 m2 Flora Saunders RN [facility], [facility].; [employer] [facility] CenterM[facility]. 06-23-2022 14:16-0400 Body temperature 99 [degF] Flora Saunders RN [facility].; [place] [employer] [facility] CenterM[facility]. 06-23-2022 14:16-0400 Body weight 63.96 kg Flora Saunders RN [facility] HospitalM[facility].; [employer] [facility] CenterM[facility]. 06-23-2022 14:16-0400 Diastolic blood pressure 85 mm[Hg] Flora Saunders RN [facility] HospitalM[facility].; [employer] [facility], [facility]. 06-23-2022 14:16-0400 Heart rate 67 /min Flora Saunders RN [facility] Hospital[facility].; [place] [employer] [facility], [facility]. 06-23-2022 14:16-0400 Systolic blood pressure 145 mm[Hg] Flora Saunders RN [facility].; [employer] [facility] CenterM[facility]. 06-03-2022 14:16-0400 Body height 168.91 cm Joyce Oden LPN [facility] HospitalM[facility].; [employer] [facility] CenterM[facility]. 06-03-2022 14:16-0400 Body mass index (BMI) [Ratio] 22.73 kg/m2 Joyce Oden LPN [place] [employer] [facility] CenterM[facility].; [place] [employer] [facility], [facility]. 06-03-2022 14:16-0400 Body surface area Derived from formula 1.74 m2 Joyce Oden LPN [facility], [facility].; [employer] [facility] CenterM[facility]. 06-03-2022 14:16-0400 Body weight 64.86 kg Joyce Oden LPN [facility] HospitalM[facility].; [employer] [facility] CenterM[facility]. 06-03-2022 14:16-0400 Diastolic blood pressure 78 mm[Hg] Joyce Oden LPN [place] [employer] [facility] CenterM[facility].; [employer], [facility]. 06-03-2022 14:16-0400 Heart rate 74 /min Joyce Oden LPN [place] [employer] [facility], [facility].; [employer], [facility]. 06-03-2022 14:16-0400 Systolic blood pressure 130 mm[Hg] Joyce Oden LPN [place] [facility].; [employer]. 04-14-2022 08:17-0400 Body height 168.91 cm Flora Saunders RN [facility] HospitalM[facility].; [employer] [facility] CenterProperty [facility]. 04-14-2022 08:17-0400 Body mass index (BMI) [Ratio] 23.37 kg/m2 Flora Saunders RN [place] [employer] [facility] CenterM[facility].; [employer] [facility] CenterM[facility]. 04-14-2022 08:17-0400 Body surface area Derived from formula 1.76 m2 Flora Saunders RN [place] [employer] [facility] CenterM[facility].; [employer] [facility]. 04-14-2022 08:17-0400 Body temperature 98.2 [degF] Flora Saunders RN [place] [employer] [facility] CenterM[facility].; [employer]. 04-14-2022 08:17-0400 Body weight 66.68 kg Flora Saunders RN [employer] [facility] Center[facility].; [employer]. 04-14-2022 08:17-0400 Diastolic blood pressure 81 mm[Hg] Flora Saunders RN [employer] [facility] CenterM[facility].; [employer]. 04-14-2022 08:17-0400 Heart rate 71 /min Flora Saunders RN [place] [employer] [facility] CenterM[facility].; [employer]. 04-14-2022 08:17-0400 Inhaled oxygen concentration 20 % Flora Saunders RN [employer] [facility] CenterProperty [facility].; [employer]. 04-14-2022 08:17-0400 SaO2% (BldA) [Mass fraction] 99 % Flora Saunders RN [employer] [facility].; [employer]. 04-14-2022 08:17-0400 Systolic blood pressure 122 mm[Hg] Flora Saunders RN [employer]. 03-04-2022 08:59-0400 Body height 168.91 cm Joyce Oden LPN [place] [employer] [facility] Center[facility].; [employer]. 03-04-2022 08:59-0400 Body mass index (BMI) [Ratio] 23.85 kg/m2 Joyce Oden LPN [facility], [facility].; [employer] [facility], [facility]. 03-04-2022 08:59-0400 Body surface area Derived from formula 1.78 m2 Joyce Oden LPN [facility], [facility].; [employer] [facility], Inc. 03-04-2022 08:59-0400 Body weight 68.04 kg Joyce Oden LPN [facility], Inc.; [employer] [facility], [facility]. 03-04-2022 08:59-0400 Diastolic blood pressure 67 mm[Hg] Joyce Oden LPN [facility], [facility].; [employer] [facility], [facility]. 03-04-2022 08:59-0400 Heart rate 75 /min Joyce Oden LPN [facility], [facility].; [employer] [facility], Inc. 03-04-2022 08:59-0400 Systolic blood pressure 99 mm[Hg] Joyce Oden LPN [facility], Inc.; [employer] [facility], [facility]. 07-25-2021 09:01-0400 Body height 168.91 cm Radha Flores LPN [facility], [facility].; [employer] 07-25-2021 09:01-0400 Body mass index (BMI) [Ratio] 24.96 kg/m2 Radha Flores LPN [facility], Inc.; [employer] [facility], Inc. 07-25-2021 09:01-0400 Body surface area Derived from formula 1.81 m2 Radha Flores LPN [facility], [facility].; [employer] [facility], [facility]. 07-25-2021 09:01-0400 Body weight 71.22 kg Radha Flores LPN [place] [employer] [facility], [facility].; [employer], [facility]. 07-25-2021 09:01-0400 Diastolic blood pressure 88 mm[Hg] Radha Flores LPN [place] [employer] [facility], Inc.; [employer], Inc[employer] 07-25-2021 09:01-0400 Heart rate 69 /min Radha Flores LPN [place] [employer] [facility], Inc.; [employer], [facility]. 07-25-2021 09:01-0400 Systolic blood pressure 122 mm[Hg] Radha Flores LPN [facility], [facility].; [facility], [facility]. 07-17-2021 08:33-0400 Body height 168.91 cm Radha Flores LPN [facility], [facility].; [place] [employer] [facility], [employer] 07-17-2021 08:33-0400 Body mass index (BMI) [Ratio] 25.6 kg/m2 Radha Flores HAND SPRING REPAIRER [facility], [facility].; [place] [employer] [facility], [facility]. 07-17-2021 08:33-0400 Body surface area Derived from formula 1.83 m2 [facility] Harrahdon [facility], [facility].; [facility], [facility]. 07-17-2021 08:33-0400 Body weight 73.03 kg Radha [facility], [facility].; [place] [employer] [facility], [facility]. 07-17-2021 08:33-0400 Diastolic blood pressure 71 mm[Hg] Radha Flores LPN [facility], [facility].; [place] [employer] [facility], [facility]. 07-17-2021 08:33-0400 Heart rate 69 /min Radhamena Harrissamantahunter [facility], [facility].; [place] [employer] [facility] CenterM[facility]. 07-17-2021 08:33-0400 Systolic blood pressure 103 mm[Hg] Radha Flores LPN [facility], [facility].; [place] [employer] [facility], [facility]. 06-25-2021 10:29-0400 Body height 168.91 cm Flora Saunders RN [facility] HospitalM[facility].; [place] [employer] [facility] CenterM[facility]. 06-25-2021 10:29-0400 Body mass index (BMI) [Ratio] 25.28 kg/m2 Flora Saunders RN [facility] HospitalM[facility].; [place] [employer] [facility] CenterM[facility]. 06-25-2021 10:29-0400 Body surface area Derived from formula 1.82 m2 Flora Saunders RN [facility] HospitalM[facility].; [place] [employer]. 06-25-2021 10:29-0400 Body temperature 98.4 [degF] Flora Saunders RN [facility] HospitalM[facility].; [place] [employer]. 06-25-2021 10:29-0400 Body weight 72.12 kg Flora Saunders RN [facility] HospitalM[facility].; [facility] HospitalM[facility]. 06-25-2021 10:29-0400 Diastolic blood pressure 79 mm[Hg] Flora Saunders RN [facility] HospitalM[facility].; [place] [employer] [facility] CenterM[facility]. 06-25-2021 10:29-0400 Heart rate 73 /min Flora Saunders RN [facility] HospitalM[facility].; [place] [employer] [facility] CenterM[facility]. 06-25-2021 10:29-0400 Systolic blood pressure 117 mm[Hg] Flora Saunders RN [facility] HospitalM[facility].; [place] [employer] [facility] CenterM[facility]. 04-11-2021 08:06-0400 Body height 168.91 cm Joyce Oden LPN [facility] HospitalM[facility].; [place] [employer] [facility] CenterM[facility]. 04-11-2021 08:06-0400 Body mass index (BMI) [Ratio] 24.01 kg/m2 Jyoce Oden LPN [facility] HospitalM[facility].; [place] [employer] [facility] CenterM[facility]. 04-11-2021 08:06-0400 Body surface area Derived from formula 1.78 m2 Joyce Oden LPN [facility] HospitalM[facility].; [place] [employer] [facility] CenterM[facility]. 04-11-2021 08:06-0400 Body temperature 96.4 [degF] Joyce Oden LPN [facility], [facility].; [place] [employer] [facility]. 04-11-2021 08:06-0400 Body weight 68.49 kg Joyce Oden LPN [facility] HospitalM[facility].; [place] [employer] [facility] CenterM[facility]. 04-11-2021 08:06-0400 Diastolic blood pressure 80 mm[Hg] Joyce Oden LPN [facility] HospitalM[facility].; [place] [employer] [facility] CenterM[facility]. 04-11-2021 08:06-0400 Heart rate 76 /min Joyce Oden LPN [facility] HospitalM[facility].; [place] [employer] [facility] CenterM[facility]. 04-11-2021 08:06-0400 Inhaled oxygen concentration 20 % Joyce Oden LPN [facility] HospitalM[facility].; [place] [facility]. 04-11-2021 08:06-0400 SaO2% (BldA) [Mass fraction] 97 % Joyce Oden LPN [facility] HospitalM[facility].; [place] [employer] [facility] CenterM[facility]. 04-11-2021 08:06-0400 Systolic blood pressure 108 mm[Hg] Joyce Oden LPN [facility] HospitalM[facility].; [employer] [facility] CenterM[facility]. 03-25-2021 08:05-0400 Body height 168.91 cm Flora Saunders RN [facility] HospitalM[facility].; [place] [employer] [facility] CenterM[facility]. 03-25-2021 08:05-0400 Body mass index (BMI) [Ratio] 23.85 kg/m2 Flora Saunders RN [facility] HospitalM[facility].; [place] [employer] [facility] CenterM[facility]. 03-25-2021 08:05-0400 Body surface area Derived from formula 1.78 m2 Flora Saunders RN [facility] HospitalM[facility].; [place] [employer] [facility] CenterM[facility]. 03-25-2021 08:05-0400 Body weight 68.04 kg Flora Saunders RN [facility] HospitalM[facility].; [place] [employer] [facility] CenterM[facility]. 03-25-2021 08:05-0400 Diastolic blood pressure 82 mm[Hg] Flora Saunders RN [facility] HospitalM[facility].; [place] [employer] [facility] CenterM[facility]. 03-25-2021 08:05-0400 Heart rate 68 /min Flora Saunders RN [place] [employer] [facility] CenterM[facility].; [place] [employer] [facility] CenterM[facility]. 03-25-2021 08:05-0400 Systolic blood pressure 133 mm[Hg] Flora Saunders RN [place] [employer] [facility] CenterM[facility].; [place] [employer] [facility] CenterM[facility]. 02-08-2021 14:01-0400 Body height 168.91 cm Joyce Oden LPN [place] [employer] [facility] CenterM[facility].; [place] [employer] [facility]. 02-08-2021 14:01-0400 Body mass index (BMI) [Ratio] 23.69 kg/m2 Joyce Oden LPN [place] [employer] [facility] CenterM[facility].; [employer] [facility]. 02-08-2021 14:01-0400 Body surface area Derived from formula 1.77 m[address] Oden LPN [facility].; [facility]. 02-08-2021 14:01-0400 Body weight 67.59 kg [address] LPN [facility].; [facility]. 02-08-2021 14:01-0400 Diastolic blood pressure 74 mm[Hg] Joyce Oden LPN [facility].; [facility]. 02-08-2021 14:01-0400 Heart rate 60 /min Joyce Oden LPN [facility].; [facility]. 02-08-2021 14:01-0400 Systolic blood pressure 118 mm[Hg] Joyce Oden LPN [facility], [facility].; [facility]. 01-24-2021 08:54-0400 Body height 168.91 cm Flora Saunders RN [facility], [facility].; [place] [employer] [facility] CenterM[facility]. 01-24-2021 08:54-0400 Body mass index (BMI) [Ratio] 23.37 kg/m2 Flora Saunders RN [facility] HospitalM[facility].; [employer] [facility], [facility]. 01-24-2021 08:54-0400 Body surface area Derived from formula 1.76 m2 Flora Saunders RN [place] [employer] [facility] CenterM[facility].; [employer] [facility], [facility]. 01-24-2021 08:54-0400 Body temperature 98.4 [degF] Flora Saunders RN [facility] HospitalM[facility].; [employer] [facility] CenterM[facility]. 01-24-2021 08:54-0400 Body weight 66.68 kg Flora Saunders RN [place] [employer] [facility] CenterM[facility].; [employer] [facility]. 01-24-2021 08:54-0400 Diastolic blood pressure 70 mm[Hg] Flora Saunders RN [place] [employer] [facility] CenterM[facility].; [employer] [facility]. 01-24-2021 08:54-0400 Heart rate 68 /min Flora Saunders RN [place] [employer] [facility] CenterM[facility].; [employer] [facility]. 01-24-2021 08:54-0400 Systolic blood pressure 102 mm[Hg] Flora Saunders RN [facility], [facility].; [employer] [facility]. 12-19-2020 10:41-0400 Body height 168.91 cm Radha Garcia LPN [facility], [facility].; [employer] [facility]. 12-19-2020 10:41-0400 Body mass index (BMI) [Ratio] 23.21 kg/m2 Radha Garcia LPN [facility], [facility].; [employer] [facility]. 12-19-2020 10:41-0400 Body surface area Derived from formula 1.76 m2 Radha Garcia LPN [place] [employer] [facility] CenterM[facility].; [employer] [facility]. 12-19-2020 10:41-0400 Body weight 66.23 kg Radha Garcia LPN [place] [employer] [facility], [facility].; [employer] [facility]. 12-19-2020 10:41-0400 Diastolic blood pressure 82 mm[Hg] Radha Garcia LPN [place] [employer] [facility] CenterM[facility].; [employer] [facility]. 12-19-2020 10:41-0400 Heart rate 65 /min Radha Garcia LPN [employer] [facility] CenterM[facility].; [employer] [facility]. 12-19-2020 10:41-0400 Systolic blood pressure 114 mm[Hg] Radha Garcia LPN [employer] [facility], [facility].; [employer] [facility]. 11-27-2020 15:09-0500 Body height 168.91 cm Flora Saunders RN [place] [employer] [facility] CenterM[facility].; [employer] [facility]. 11-27-2020 15:09-0500 Body mass index (BMI) [Ratio] 23.53 kg/m2 Flora Saunders RN [place] [employer] [facility] CenterM[facility].; [employer] 11-27-2020 15:09-0500 Body surface area Derived from formula 1.77 m2 Flora Saunders RN [employer] [facility] CenterM[facility].; [employer]. 11-27-2020 15:09-0500 Body weight 67.13 kg Flora Saunders RN [employer] [facility] CenterM[facility].; [employer]. 11-27-2020 15:09-0500 Diastolic blood pressure 77 mm[Hg] Flora Saunders RN [facility], [facility].; [facility] HospitalM[facility]. 11-27-2020 15:09-0500 Heart rate 67 /min Flora Saunders RN [facility], [facility].; [facility], [facility]. 11-27-2020 15:09-0500 Systolic blood pressure 129 mm[Hg] Flora Saunders RN [facility], [facility].; [facility], [facility]. 09-25-2020 09:19-0500 Body height 168.91 cm Joyce Oden LPN [facility], [facility].; [facility], [facility]. 09-25-2020 09:19-0500 Body mass index (BMI) [Ratio] 22.89 kg/m2 Joyce Oden LPN [facility], [facility].; [facility], [facility]. 09-25-2020 09:19-0500 Body surface area Derived from formula 1.75 m2 Joyce Oden LPN [facility], [facility].; [facility], [facility]. 09-25-2020 09:19-0500 Body temperature 98.6 [degF] Joyce Oden LPN [facility], [facility].; [facility], [facility]. 09-25-2020 09:19-0500 Body weight 65.32 kg Joyce Oden LPN [facility], [facility].; [facility], [facility]. 09-25-2020 09:19-0500 Heart rate 66 /min Joyce Oden LPN [facility], [facility].; [facility], [facility]. 09-25-2020 09:19-0500 Inhaled oxygen concentration 20 % Joyce [facility] LPN [facility].; [place] [employer] [facility]. 09-25-2020 09:19-0500 SaO2% (BldA) [Mass fraction] 98 % Joyce [facility] LPN [facility].; [facility]. 09-18-2020 09:42-0500 Body height 168.91 cm Joyce Oden LPN [facility], [facility].; [place] [employer] [facility]. 09-18-2020 09:42-0500 Body mass index (BMI) [Ratio] 23.21 kg/m2 Joyce Oden LPN [facility], [facility].; [facility]. 09-18-2020 09:42-0500 Body surface area Derived from formula 1.76 m2 Joyce Oden LPN [facility], [facility].; [facility], [facility]. 09-18-2020 09:42-0500 Body temperature 99 [degF] Joyce Oden LPN [facility].; [facility]. 09-18-2020 09:42-0500 Body weight 66.[address] [facility].; [facility]. 09-18-2020 09:42-0500 Heart rate 77 /min Joyce Oden LPN [facility], [facility].; [facility]. 09-18-2020 09:42-0500 Inhaled oxygen concentration 20 % Joyce Oden LPN [facility], [facility].; [facility], [facility]. 09-18-2020 09:42-0500 SaO2% (BldA) [Mass fraction] 98 % Joyce Oden LPN [facility].; [facility], [facility]. 08-14-2020 11:15-0500 Body height 168.91 cm Flora Saunders RN [facility], [facility].; [facility], [facility]. 08-14-2020 11:15-0500 Body mass index (BMI) [Ratio] 23.85 kg/m2 Flora Saunders RN [facility], [facility].; [place] [employer] [facility]. 08-14-2020 11:15-0500 Body surface area Derived from formula 1.78 m2 Flora Saunders RN [facility].; [place] [employer] [facility]. 08-14-2020 11:15-0500 Body temperature 98.6 [degF] Flora Saunders RN [facility].; [place] [employer] [facility]. 08-14-2020 11:15-0500 Body weight 68.04 kg Flroa Saunders RN [facility].; [place] [employer]. 08-14-2020 11:15-0500 Diastolic blood pressure 73 mm[Hg] Flora Saunders RN [facility], [facility].; [facility], [facility]. 08-14-2020 11:15-0500 Heart rate 75 /min Flora Saunders RN [facility], [facility].; [facility], [facility]. 08-14-2020 11:15-0500 Systolic blood pressure 133 mm[Hg] Flora Saunders RN [facility], [facility].; [facility], [facility]. 08-08-2020 08:10-0500 Body height 168.91 cm Joyce Oden LPN [facility], [facility].; [facility], [facility]. 08-08-2020 08:10-0500 Body mass index (BMI) [Ratio] 23.05 kg/m2 Joyce Oden LPN [facility], [facility].; [facility], [facility]. 08-08-2020 08:10-0500 Body surface area Derived from formula 1.75 m2 Joyce Oden LPN [facility], [facility].; [place] [employer] [facility], [facility]. 08-08-2020 08:10-0500 Body temperature 98.1 [degF] Joyce Oden LPN [facility], [facility].; [place] [employer] [facility], [facility]. 08-08-2020 08:10-0500 Body weight 65.77 kg Joyce Oden LPN [facility], [facility].; [place] [employer] [facility], [facility]. 08-08-2020 08:10-0500 Diastolic blood pressure 74 mm[Hg] Joyce Oden LPN [facility], [facility].; [facility], [facility]. 08-08-2020 08:10-0500 Heart rate 71 /min Joyce Oden LPN [facility], [facility].; [place] [employer] [facility], [facility]. 08-08-2020 08:10-0500 Systolic blood pressure 128 mm[Hg] Joyce Oden LPN [facility], [facility].; [facility], [facility]. 05-11-2020 08:41-0400 Body height 168.91 cm Joyce Oden LPN [facility], [facility].; [place] [employer] [facility]. 05-11-2020 08:41-0400 Body mass index (BMI) [Ratio] 22.89 kg/m2 Joyce Oden LPN [facility].; [employer] [facility]. 05-11-2020 08:41-0400 Body surface area Derived from formula 1.75 m2 Joyce Oden LPN [place] [employer] [facility].; [employer] [facility]. 05-11-2020 08:41-0400 Body weight 65.32 kg Joyce Oden LPN [place] [employer] [facility].; [employer] [facility]. 05-11-2020 08:41-0400 Diastolic blood pressure 78 mm[Hg] Joyce Oden LPN [place] [employer] [facility].; [employer] [facility]. 05-11-2020 08:41-0400 Heart rate 65 /min Joyce Oden LPN [employer] [facility] Center[facility].; [employer] [facility]. 05-11-2020 08:41-0400 Systolic blood pressure 113 mm[Hg] Joyce Oden LPN [place] [employer] [facility] Center[facility].; [employer] [facility]. 05-04-2020 09:06-0400 Body height 168.91 cm Flora Saunders RN [place] [employer] [facility].; [employer] [facility]. 05-04-2020 09:06-0400 Body mass index (BMI) [Ratio] 22.89 kg/m2 Flora Saunders RN [employer] [facility] Center[facility].; [employer] [facility]. 05-04-2020 09:06-0400 Body surface area Derived from formula 1.75 m2 Flora Saunders RN [employer] [facility] Center[facility].; [employer]. 05-04-2020 09:06-0400 Body temperature 97.2 [degF] Flora Saunders RN [employer] [facility] CenterM[facility].; [employer]. 05-04-2020 09:06-0400 Body weight 65.32 kg Flora Saunders RN [employer] [facility] Center[facility].; [employer]. 05-04-2020 09:06-0400 Diastolic blood pressure 82 mm[Hg] Flora Saunders RN [employer] [facility] CenterM[facility].; [employer]. 05-04-2020 09:06-0400 Heart rate 66 /min Flora Saunders RN [employer] [facility] CenterM[facility].; [employer]. 05-04-2020 09:06-0400 Systolic blood pressure 117 mm[Hg] Flora Saunders RN [place] [employer] [facility].; [employer] 02-13-2020 14:24-0400 Body height 168.91 cm Shira Singh RN [facility].; [employer]. 02-13-2020 14:24-0400 Body mass index (BMI) [Ratio] 23.69 kg/m2 Shira Singh RN [place] [employer] [facility].; [employer]. 02-13-2020 14:24-0400 Body surface area Derived from formula 1.77 m2 Shira Singh RN [place] [employer] [facility] CenterM[facility].; [employer]. 02-13-2020 14:24-0400 Body weight 67.59 kg Shira Singh RN [place] [employer] [facility] Center[facility].; [employer]. 02-13-2020 14:24-0400 Diastolic blood pressure 121 mm[Hg] Shira Singh RN [place] [employer] [facility] CenterM[facility].; [employer]. 02-13-2020 14:24-0400 Heart rate 73 /min Shira Singh RN [place] [employer] [facility].; [employer]. 02-13-2020 14:24-0400 Systolic blood pressure 153 mm[Hg] Shira Singh RN [place] [employer] [facility] CenterM[facility].; [employer] [facility]. 01-26-2020 08:32-0400 Body height 168.91 cm Flora Saunders RN [place] [employer] [facility] CenterM[facility].; [employer]. 01-26-2020 08:32-0400 Body mass index (BMI) [Ratio] 23.53 kg/m2 Flora Saunders RN [employer] [facility] Center[facility].; [employer]. 01-26-2020 08:32-0400 Body surface area Derived from formula 1.77 m2 Flora Saunders RN [employer]. 01-26-2020 08:32-0400 Body temperature 98.2 [degF] Flora Saunders RN [employer].; [employer]. 01-26-2020 08:32-0400 Body weight 67.13 kg Flora Saunders RN [facility], [facility].; [facility], [facility]. 10-21-2019 14:44-0500 Body height 168.91 cm Julia Cassidy LPN [facility], [facility].; [facility], Inc[facility] 10-21-2019 14:44-0500 Body mass index (BMI) [Ratio] 23.53 kg/m2 [facility].; [facility], [facility]. 10-21-2019 14:44-0500 Body surface area Derived from formula 1.77 m2 Julia Cassidy HAND SPRING REPAIRER [facility], Inc.; [facility], [facility]. 10-21-2019 14:44-0500 Body weight 67.13 kg Julia Cassidy LPN [facility], Inc.; [place] [employer] [facility], [facility]. 10-21-2019 14:44-0500 Diastolic blood pressure 73 mm[Hg] Julia Cassidy HAND SPRING REPAIRER [facility], [facility].; [place] [employer] [facility], [facility]. 10-21-2019 14:44-0500 Heart rate 77 /min Julia Cassidy [facility], [facility].; [place] [employer] [facility], [facility]. 10-21-2019 14:44-0500 Systolic blood pressure 112 mm[Hg] Julia Cassidy LPN [facility], Inc.; [facility], Inc[facility] 10-13-2019 16:02-0500 Body height 168.91 cm Joyce Oden LPN [facility], [facility].; [place] [employer] [facility], [facility]. 10-13-2019 16:02-0500 Body mass index (BMI) [Ratio] 23.05 kg/m2 Joyce Oedn LPN [facility], [facility].; [facility], [facility]. 10-13-2019 16:02-0500 Body surface area Derived from formula 1.75 m2 Joyce Oden LPN [facility], [facility].; [place] [employer] [facility], Inc[facility] 10-13-2019 16:02-0500 Body temperature 98.5 [degF] Joyce Oden LPN [facility], [facility].; [employer] 10-13-2019 16:02-0500 Body weight 65.77 kg Joyce Oden LPN [employer] 10-13-2019 16:02-0500 Diastolic blood pressure 110 mm[Hg] Joyce Oden LPN [employer] 10-13-2019 16:02-0500 Heart rate 71 /min Joyce Oden LPN [employer] 10-13-2019 16:02-0500 Systolic blood pressure 142 mm[Hg] Joyce Oden LPN [employer] 09-26-2019 10:40-0500 Body height 168.91 cm Joyce Oden LPN [employer] 09-26-2019 10:40-0500 Body mass index (BMI) [Ratio] 22.89 kg/m2 Joyce Oden LPN [employer]. 09-26-2019 10:40-0500 Body surface area Derived from formula 1.75 m2 Joyce Oden LPN [employer], [employer] 09-26-2019 10:40-0500 Body weight 65.32 kg Joyce Oden LPN [employer] 09-26-2019 10:40-0500 Diastolic blood pressure 86 mm[Hg] Joyce Oden LPN [employer] 09-26-2019 10:40-0500 Heart rate 76 /min Joyce Oden LPN [employer], [employer] 09-26-2019 10:40-0500 Systolic blood pressure 129 mm[Hg] Joyce Oden LPN [employer] 08-13-2019 10:23-0500 Body height 168.91 cm Joyce Oden LPN [employer]. 08-13-2019 10:23-0500 Body mass index (BMI) [Ratio] 23.05 kg/m2 Joyce Oden LPN [employer] 08-13-2019 10:23-0500 Body surface area Derived from formula 1.75 m2 Joyce Oden LPN [employer] 08-13-2019 10:23-0500 Body weight 65.77 kg Joyce Oden LPN [employer] 08-13-2019 10:23-0500 Diastolic blood pressure 72 mm[Hg] Joyce Oden LPN [employer] 08-13-2019 10:23-0500 Heart rate 70 /min Joyce Oden LPN [employer] 08-13-2019 10:23-0500 Systolic blood pressure 113 mm[Hg] Joyce Oden HAND SPRING REPAIRER [employer] 08-03-2019 16:17-0500 Body height 168.91 cm Pam Day [facility] [employer] 08-03-2019 16:17-0500 Body mass index (BMI) [Ratio] 23.21 kg/m2 Pam Day [facility] [employer] 08-03-2019 16:17-0500 Body surface area Derived from formula 1.76 m2 Pam Day [facility] [employer] 08-03-2019 16:17-0500 Body weight 66.23 kg Pam Day [facility] [employer] 08-03-2019 16:17-0500 Diastolic blood pressure 85 mm[Hg] Pam Day [facility] [employer] 08-03-2019 16:17-0500 Heart rate 70 /min Pam Day [facility] [employer] 08-03-2019 16:17-0500 Systolic blood pressure 137 mm[Hg] Pam Day [facility] [employer] 05-02-2019 11:51-0400 Body height 168.91 cm Grace Cornejo HAND SPRING REPAIRER [employer] 05-02-2019 11:51-0400 Body mass index (BMI) [Ratio] 22.42 kg/m2 Grace Cornejo HAND SPRING REPAIRER [employer] 05-02-2019 11:51-0400 Body surface area Derived from formula 1.73 m2 Grace Cornejo HAND SPRING REPAIRER [employer] 05-02-2019 11:51-0400 Body weight 63.96 kg Grace Cornejo HAND SPRING REPAIRER [employer], [employer] 05-02-2019 11:51-0400 Diastolic blood pressure 79 mm[Hg] Grace Cornejo HAND SPRING REPAIRER [employer], [employer] 05-02-2019 11:51-0400 Heart rate 71 /min Grace Cornejo HAND SPRING REPAIRER [employer], [employer] 05-02-2019 11:51-0400 Systolic blood pressure 127 mm[Hg] Grace Cornejo HAND SPRING REPAIRER [employer] 12-16-2018 10:44-0400 Body height 168.91 cm Flora Saunders RN [employer], [employer] 12-16-2018 10:44-0400 Body mass index (BMI) [Ratio] 24.32 kg/m2 Flora Saunders RN [employer]. 12-16-2018 10:44-0400 Body surface area Derived from formula 1.79 m2 Flora Saunders RN [employer], [employer]; [employer]. 12-16-2018 10:44-0400 Body weight 69.4 kg Flora Saunders RN [employer], [employer]; [employer]. 12-16-2018 10:44-0400 Diastolic blood pressure 72 mm[Hg] Flora Saunders RN [employer]. 12-16-2018 10:44-0400 Heart rate 76 /min Flora Saunders RN [place] [employer]. 12-16-2018 10:44-0400 Systolic blood pressure 106 mm[Hg] Flora Saunders RN [place] [employer]. 10-19-2018 11:18-0500 Body height 168.91 cm Skyla K Mutersbaugh HAND SPRING REPAIRER [employer].; [employer]. 10-19-2018 11:18-0500 Body mass index (BMI) [Ratio] 24.01 kg/m2 Skyla K Mutersbaugh HAND SPRING REPAIRER [employer].; [employer]. 10-19-2018 11:18-0500 Body surface area Derived from formula 1.78 m2 Skyla K Mutersbaugh HAND SPRING REPAIRER [employer].; [employer]. 10-19-2018 11:18-0500 Body temperature 98.8 [degF] Skyla K Mutersbaugh HAND SPRING REPAIRER [employer].; [employer]. 10-19-2018 11:18-0500 Body weight 68.49 kg Skyla K Mutersbaugh HAND SPRING REPAIRER [employer], [employer]; [employer]. 10-19-2018 11:18-0500 Diastolic blood pressure 78 mm[Hg] Skyla K Mutersbaugh HAND SPRING REPAIRER [employer].; [employer]. 10-19-2018 11:18-0500 Heart rate 77 /min Skyla K Mutersbaugh HAND SPRING REPAIRER [employer].; [employer]. 10-19-2018 11:18-0500 Systolic blood pressure 126 mm[Hg] Skyla K Mutersbaugh HAND SPRING REPAIRER [employer] 09-13-2018 13:52-0500 Body height 168.91 cm Ashwini Clemente BARAKAT [employer].; [employer]. 09-13-2018 13:52-0500 Body mass index (BMI) [Ratio] 24.48 kg/m2 Ashwini Clemente [facility], [facility].; [employer] 09-13-2018 13:52-0500 Body surface area Derived from formula 1.8 m2 Grace Cornejo HAND SPRING REPAIRER [facility], Inc.; [employer] 09-13-2018 13:52-0500 Body temperature 98 [degF] Grace Cornejo [facility] [employer] [facility], Inc.; [employer] 09-13-2018 13:52-0500 Body weight 69.85 kg [facility]e [facility], Inc.; [employer] 09-13-2018 13:52-0500 Diastolic blood pressure 74 mm[Hg] Grace Cornejo [facility] [employer] [facility], Inc.; [employer] 09-13-2018 13:52-0500 Heart rate 73 /min Ashwini Clemente [facility] [employer] [facility], Inc.; [employer] 09-13-2018 13:52-0500 Systolic blood pressure 130 mm[Hg] Ashwini Clemente [facility], Inc.; [employer] 08-31-2018 13:58-0500 Body height 168.91 cm Flora Saunders RN [place] [employer] [facility], Inc.; [employer] 08-31-2018 13:58-0500 Body mass index (BMI) [Ratio] 24.01 kg/m2 Flora Saunders RN [place] [employer] [facility], Inc.; [employer] 08-31-2018 13:58-0500 Body surface area Derived from formula 1.78 m2 Flora Saunders RN [employer] [facility], Inc.; [employer] 08-31-2018 13:58-0500 Body temperature 98.8 [degF] Flora Saunders RN [employer] [facility], Inc.; [employer] 08-31-2018 13:58-0500 Body weight 68.49 kg Flora Saunders RN [place] [employer] [facility], Inc.; [employer] 08-31-2018 13:58-0500 Diastolic blood pressure 69 mm[Hg] Flora Saunders RN [place] [employer] [facility], Inc.; [employer] 08-31-2018 13:58-0500 Heart rate 80 /min Flora Saunders RN [facility], Inc.; [employer] 08-31-2018 13:58-0500 Systolic blood pressure 106 mm[Hg] Flora Saunders RN [place] [employer] [facility], Inc.; [employer] 08-30-2018 12:57-0500 Body height 168.91 cm Ashwini [place] HAND SPRING REPAIRER [employer] [facility], Inc.; [employer] 08-30-2018 12:57-0500 Body mass index (BMI) [Ratio] 24.01 kg/m2 Ashwini Clemente HAND SPRING REPAIRER [employer] [facility], Inc.; [employer] 08-30-2018 12:57-0500 Body surface area Derived from formula 1.78 m2 [facility] Clemente HAND SPRING REPAIRER [employer] [facility], Inc.; [employer] 08-30-2018 12:57-0500 Body temperature 97.7 [degF] Ashwini Clemente HAND SPRING REPAIRER [employer] [facility], Inc.; [employer] 08-30-2018 12:57-0500 Body weight 68.49 kg Ashwini [place] HAND SPRING REPAIRER [employer] [facility], Inc.; [employer] 08-30-2018 12:57-0500 Diastolic blood pressure 84 mm[Hg] AshwiniGianna Cornejo LPN [employer] [facility], Inc.; [employer] 08-30-2018 12:57-0500 Heart rate 67 /min Ashwini [place] HAND SPRING REPAIRER [employer] [facility], Inc.; [employer] 08-30-2018 12:57-0500 Systolic blood pressure 126 mm[Hg] AshwiniGianna Cornejo LPN [employer] [facility], Inc.; [employer] 08-23-2018 10:36-0500 Body height 168.91 cm Ashwini [place] HAND SPRING REPAIRER [employer] [facility], Inc.; [employer], [employer] 08-23-2018 10:36-0500 Body mass index (BMI) [Ratio] 24.32 kg/m2 Grace [facility], Inc.; [employer], [employer] 08-23-2018 10:36-0500 Body surface area Derived from formula 1.[address] [facility], Inc.; [employer], [employer] 08-23-2018 10:36-0500 Body weight 69.[address] [facility], Inc.; [employer], [employer] 08-23-2018 10:36-0500 Diastolic blood pressure 72 mm[Hg] [facility] Clemente [facility] [facility], Inc.; [employer], [employer] 08-23-2018 10:36-0500 Heart rate 79 /min [facility].; [employer]. 08-23-2018 10:36-0500 Systolic blood pressure 111 mm[Hg] Grace Cornejo [facility] Inc.; [employer], [employer] 07-01-2018 09:34-0400 Body height 168.91 cm Flora Saunders RN [facility], [employer]; [employer], [employer] 07-01-2018 09:34-0400 Body mass index (BMI) [Ratio] 24.32 kg/m2 Flora Saunders RN [facility], [employer]; [employer]. 07-01-2018 09:34-0400 Body surface area Derived from formula 1.79 m2 Flora Saunders RN [employer]obar[employer], [employer]; [employer]. 07-01-2018 09:34-0400 Body temperature 98.4 [degF] Flora Saunders RN [employer], [employer]; [employer]. 07-01-2018 09:34-0400 Body weight 69.4 kg Flora Saunders RN Escobar[facility], [employer]; [employer]. 07-01-2018 09:34-0400 Diastolic blood pressure 76 mm[Hg] Flora Saunders RN [place] [employer] [facility].; [employer]. 07-01-2018 09:34-0400 Heart rate 68 /min Flora Saunders RN [place] [employer] [facility].; [employer]. 07-01-2018 09:34-0400 Inhaled oxygen concentration 20 % Flora [facility]unders RN [facility].; [employer]. 07-01-2018 09:34-0400 SaO2% (BldA) [Mass fraction] 98 % Flora Saunders RN [facility].; [employer]. 07-01-2018 09:34-0400 Systolic blood pressure 107 mm[Hg] Flora Saunders RN [place] [employer] [facility].; [employer] 05-20-2018 11:48-0400 Body height 168.91 cm Flora Saunders RN [place] [employer] [facility].; [employer]. 05-20-2018 11:48-0400 Body mass index (BMI) [Ratio] 24.01 kg/m2 Flora Saunders RN [place] [employer] [facility].; [employer]. 05-20-2018 11:48-0400 Body surface area Derived from formula 1.78 m2 Flora Saunders RN [facility] [employer] [facility].; [employer]. 05-20-2018 11:48-0400 Body temperature 98.5 [degF] Flora Saunders RN [facility] [employer] [facility].; [employer]. 05-20-2018 11:48-0400 Body weight 68.49 kg Flora Saunders RN [employer].; [employer]. 05-20-2018 11:48-0400 Diastolic blood pressure 82 mm[Hg] Flora Saunders RN [employer] [employer] [facility].; [employer]. 05-20-2018 11:48-0400 Heart rate 63 /min Flora Saunders RN [facility] [employer] [facility].; [employer]. 05-20-2018 11:48-0400 Systolic blood pressure 128 mm[Hg] Flora Saunders RN [place] [employer] [facility], [facility].; [employer], [employer] 05-18-2018 09:37-0400 Body height 168.91 cm Annalee Brown [facility], Inc.; [employer], Inc[employer] 05-18-2018 09:37-0400 Body mass index (BMI) [Ratio] 23.85 kg/m2 Annalee Brown [facility] [employer] [facility], Inc.; [employer], Inc[employer] 05-18-2018 09:37-0400 Body surface area Derived from formula 1.78 m2 Annalee Brown LPN [place] [employer] [facility], Inc.; [employer], [employer] 05-18-2018 09:37-0400 Body weight 68.04 kg Annalee Brown HAND SPRING REPAIRER [place] [employer] [facility], Inc.; [employer], [employer] 05-18-2018 09:37-0400 Diastolic blood pressure 74 mm[Hg] Annalee Brown [facility] [employer] [facility], Inc.; [employer]. 05-18-2018 09:37-0400 Heart rate 64 /min Annalee Brown LPN [place] [employer] [facility], Inc.; [employer]. 05-18-2018 09:37-0400 Systolic blood pressure 112 mm[Hg] Annalee Brown LPN [facility], Inc.; [employer], [employer] 02-26-2018 11:37-0400 Body height 168.91 cm Skyla K Mutersbayuan [facility] [employer] [facility], Inc.; [employer]. 02-26-2018 11:37-0400 Body mass index (BMI) [Ratio] 22.73 kg/m2 Skyla K Mutersbaugh [facility] [employer] [facility], Inc.; [employer]. 02-26-2018 11:37-0400 Body surface area Derived from formula 1.[address] [facility], Inc.; [employer], [employer] 02-26-2018 11:37-0400 Body weight 64.86 kg Skyla K Mutersbaugh HAND SPRING REPAIRER [place] [employer] Inc.; [employer], [employer] 02-26-2018 11:37-0400 Diastolic blood pressure 76 mm[Hg] Skyla K Mutersbaugh HAND SPRING REPAIRER [place] [employer] [facility], Inc.; [employer] 02-26-2018 11:37-0400 Heart rate 68 /min Skyla K Mutersbaugh HAND SPRING REPAIRER [place] [employer] [facility], Inc.; [employer], Inc[employer] 02-26-2018 11:37-0400 Systolic blood pressure 116 mm[Hg] Skyla K Mutersbaugh HAND SPRING REPAIRER [facility], Inc.; [employer], Inc. 02-05-2018 12:49-0400 Body height 168.91 cm Alex Hoang (Scribe) [facility], Inc.; [employer], [employer] 02-05-2018 12:49-0400 Body mass index (BMI) [Ratio] 22.26 kg/m2 Alex Hoang (Scribe) [place] [employer] [facility], Inc.; [employer], Inc[employer] 02-05-2018 12:49-0400 Body surface area Derived from formula 1.73 m2 Alex Hoang (Sushant) [facility], Inc.; [employer], Inc[employer] 02-05-2018 12:49-0400 Body weight 63.5 kg Alexalisha Hoang (Scribe) [place] [employer] [facility], Inc.; [employer], [employer] 02-05-2018 12:49-0400 Diastolic blood pressure 80 mm[Hg] Alex Hoang (Cedrickibe) [facility], Inc.; [employer], Inc[employer] 02-05-2018 12:49-0400 Heart rate 66 /min Alex Hoang (Cedrickibjairo) [facility], Inc.; [employer], Inc[employer] 02-05-2018 12:49-0400 Systolic blood pressure 108 mm[Hg] Alex Hoang (Scribe) [place] [employer] [facility], Inc.; [employer], [employer] 12-17-2017 13:48-0400 Body height 168.91 cm Skyla Marily Da Silvaersbaugh ROSHNI [facility], Inc.; [employer], Inc[employer] 12-17-2017 13:48-0400 Body mass index (BMI) [Ratio] 21.62 kg/m2 Sykla K Mutersbaugh ROSHNI EscobarHyperpot, Inc.; [employer], Inc[employer] 12-17-2017 13:48-0400 Body surface area Derived from formula 1.71 m2 Skyla K Mutersbaugh HAND SPRING REPAIRER Escobar[employer], Inc.; [employer], Inc[employer] 12-17-2017 13:48-0400 Body weight 61.69 kg Skyla K Mutersbaugh HAND SPRING REPAIRER EscobarHyperpot, Inc.; [employer], Inc[employer] 12-17-2017 13:48-0400 Diastolic blood pressure 80 mm[Hg] Skyla K Mutersbaugh HAND SPRING REPAIRER Escobar[employer], Inc.; [employer], Inc[employer] 12-17-2017 13:48-0400 Heart rate 85 /min Skyla K Mutersbaugh HAND SPRING REPAIRER Escobar[employer], Inc.; [employer]. 12-17-2017 13:48-0400 Systolic blood pressure 115 mm[Hg] Skyla K Mutersbaugh HAND SPRING REPAIRER Escobar[employer], Inc.; [employer], [employer] 12-05-2017 08:49-0500 Body height 168.91 cm Annalee Brown LPN [employer]obar[employer], Inc.; [employer], [employer] 12-05-2017 08:49-0500 Body mass index (BMI) [Ratio] 22.1 kg/m2 [facility] Inc.; [employer], [employer] 12-05-2017 08:49-0500 Body surface area Derived from formula 1.72 m2 Annalee Brown LPN [employer]obar[employer], Inc.; [employer], [employer] 12-05-2017 08:49-0500 Body temperature 97.8 [degF] Annalee Brown LPN [employer], Inc.; [employer], [employer] 12-05-2017 08:49-0500 Body weight 63.05 kg Annalee Brown LPN EscobarHyperpot, Inc.; [employer], [employer] 12-05-2017 08:49-0500 Diastolic blood pressure 66 mm[Hg] Annalee Brown LPN Escobar[employer], Inc.; [employer], [employer] 12-05-2017 08:49-0500 Heart rate 66 /min Annalee Brown LPN Escobar[employer], Inc.; [employer]. 12-05-2017 08:49-0500 Systolic blood pressure 107 mm[Hg] Annalee Kevin [facility], Inc.; [employer], Inc[employer] 11-30-2017 16:34-0500 Body height 168.91 cm Grace Cornejo [facility] [employer] [facility], Inc.; [employer], Inc[employer] 11-30-2017 16:34-0500 Body mass index (BMI) [Ratio] 21.94 kg/m2 Grace [facility], Inc.; [employer], Inc. 11-30-2017 16:34-0500 Body surface area Derived from formula 1.72 m2 [facility], Inc.; [employer], Inc. 11-30-2017 16:34-0500 Body temperature 96.9 [degF] Grace Cor[facility] Inc.; [employer], Inc[employer] 11-30-2017 16:34-0500 Body weight 62.[address] [facility], Inc.; [employer], Inc. 11-30-2017 16:34-0500 Diastolic blood pressure 84 mm[Hg] Grace [facility] Inc.; [employer], Inc. 11-30-2017 16:34-0500 Heart rate 76 /min [facility], Inc.; [employer], Inc[employer] 11-30-2017 16:34-0500 Systolic blood pressure 122 mm[Hg] Grace [facility] Inc.; [employer], Inc. 11-12-2017 11:22-0500 Body height 168.91 cm Skyla K [address] [facility], Inc.; [employer], Inc. 11-12-2017 11:22-0500 Body mass index (BMI) [Ratio] 21.94 kg/m2 Skyla K [facility]ersbaugh [facility], Inc.; [employer], Inc. 11-12-2017 11:22-0500 Body surface area Derived from formula 1.72 [address] [facility], Inc.; [employer]. 11-12-2017 11:22-0500 Body weight 62.6 kg Skyla Marily Gillbaugh HAND SPRING REPAIRER EscobarHyperpot, Inc.; [employer] 11-12-2017 11:22-0500 Diastolic blood pressure 86 mm[Hg] Skyla K Mutersbaugh HAND SPRING REPAIRER EscobarHyperpot, Inc.; [employer] 11-12-2017 11:22-0500 Heart rate 112 /min Skyla Marily Mutersbaugh HAND SPRING REPAIRER EscobarHyperpot, Inc.; [employer]. 11-12-2017 11:22-0500 Systolic blood pressure 119 mm[Hg] Skyla K Mutersbaugh HAND SPRING REPAIRER EscobarHyperpot, Inc.; [employer] 10-19-2017 18:12-0500 Body height 168.91 cm Alex Rose) [facility], Inc.; [employer]. 10-19-2017 18:12-0500 Body mass index (BMI) [Ratio] 22.26 kg/m2 Alex Rose) [facility], Inc.; [employer]. 10-19-2017 18:12-0500 Body surface area Derived from formula 1.73 m2 Alex Rose) [facility], Inc.; [employer], [employer] 10-19-2017 18:12-0500 Body temperature 98.3 [degF] Alex Rose) [facility], Inc.; [employer], [employer] 10-19-2017 18:12-0500 Body weight 63.5 kg Alex Rose) Escobar[employer], Inc.; [employer]. 10-19-2017 18:12-0500 Diastolic blood pressure 90 mm[Hg] Alex Rose) EscobarHyperpot, Inc.; [employer], [employer] 10-19-2017 18:12-0500 Heart rate 81 /min Alex Rose) EscobarHyper[employer], Inc.; [employer]. 10-19-2017 18:12-0500 Systolic blood pressure 114 mm[Hg] Alex Rose) [facility].; [employer]. 10-10-2017 09:29-0500 Body height 165.1 cm Flora Saunders RN [facility].; [employer]. 10-10-2017 09:29-0500 Body mass index (BMI) [Ratio] 23.13 kg/m2 Flora Saunders RN [place] [employer] [facility].; [employer]. 10-10-2017 09:29-0500 Body surface area Derived from formula 1.69 m2 Flora Saunders RN [place] [employer] [facility].; [employer]. 10-10-2017 09:29-0500 Body temperature 97.6 [degF] Flora Saunders RN [place] [employer]. 10-10-2017 09:29-0500 Body weight 63.05 kg Flora Saunders RN [place] [employer] [facility].; [employer]. 10-10-2017 09:29-0500 Diastolic blood pressure 78 mm[Hg] Flora Saunders RN [place] [employer] [facility].; [employer]. 10-10-2017 09:29-0500 Heart rate 59 /min Flora Saunders RN [place] [employer]. 10-10-2017 09:29-0500 Systolic blood pressure 115 mm[Hg] Flora Saunders RN [place] [employer] [facility].; [employer]. 08-26-2017 09:19-0500 BMI (Body Mass Index) 22.92 kg/m2 MD Adi Eaton [employer] Work Phone: 08-26-2017 09:19-0500 BP Diastolic 60 mm[Hg] MD [facility] Work Phone: 08-26-2017 09:19-0500 BP Systolic 92 mm[Hg] MD Adi [facility] Work Phone: 08-26-2017 09:19-0500 Height 167.64 cm Isai Gonzalez MD [employer] Work Phone: 08-26-2017 09:19-0500 Pulse (Heart Rate) 64 /min Isai Gonzalez MD [employer] Work Phone: 08-26-2017 09:19-0500 Respiratory Rate 16 /min Isai Gonzalez MD [employer] Work Phone: 08-26-2017 09:19-0500 Weight 64.41 kg Isai Gonzalez MD [employer] Work Phone: 08-13-2017 12:08-0500 Body height 165.1 cm Flora Saunders RN [employer] 08-13-2017 12:08-0500 Body mass index (BMI) [Ratio] 23.63 kg/m2 Flora Saunders RN [employer].; [employer]. 08-13-2017 12:08-0500 Body surface area Derived from formula 1.71 m2 Flora Saunders RN [employer].; [employer]. 08-13-2017 12:08-0500 Body weight 64.41 kg Flora Saunders RN [employer].; [employer]. 08-13-2017 12:08-0500 Diastolic blood pressure 76 mm[Hg] Flora Saunders RN [employer].; [employer]. 08-13-2017 12:08-0500 Heart rate 71 /min Flora Saunders RN [employer].; [employer]. 08-13-2017 12:08-0500 Systolic blood pressure 111 mm[Hg] Flora Saunders RN [employer].; [employer]. 05-19-2017 11:45-0400 Body height 165.1 cm Skyla Soria LPN [employer].; [employer]. 05-19-2017 11:45-0400 Body mass index (BMI) [Ratio] 23.96 kg/m2 Skyla K Mutersbaugh HAND SPRING REPAIRER [facility], Inc.; [employer]. 05-19-2017 11:45-0400 Body surface area Derived from formula 1.72 m2 Skyla K Mutersbaugh HAND SPRING REPAIRER EscobarHyperpot, Inc.; [employer]. 05-19-2017 11:45-0400 Body weight 65.32 kg Skyla K Mutersbaugh HAND SPRING REPAIRER [employer] Inc.; [employer]. 05-19-2017 11:45-0400 Diastolic blood pressure 76 mm[Hg] Skyla K Mutersbaugh HAND SPRING REPAIRER [employer] Inc.; [employer]. 05-19-2017 11:45-0400 Heart rate 67 /min Skyla K Mutersbaugh HAND SPRING REPAIRER EscobarHyper[employer], Inc.; [employer]. 05-19-2017 11:45-0400 Systolic blood pressure 106 mm[Hg] Skyla K Mutersbaugh HAND SPRING REPAIRER Escobar[employer], [employer]; [employer]. 03-03-2017 14:35-0400 Body height 165.1 cm Skyla K Mutersbaugh HAND SPRING REPAIRER [employer].; [employer]. 03-03-2017 14:35-0400 Body mass index (BMI) [Ratio] 24.63 kg/m2 Skyla K Mutersbaugh HAND SPRING REPAIRER Escobar[employer], Inc.; [employer]. 03-03-2017 14:35-0400 Body surface area Derived from formula 1.74 m2 Skyla K Mutersbaugh HAND SPRING REPAIRER [employer].; [employer]. 03-03-2017 14:35-0400 Body weight 67.13 kg Skyla K Mutersbaugh HAND SPRING REPAIRER [employer].; [employer]. 03-03-2017 14:35-0400 Diastolic blood pressure 81 mm[Hg] Skyla K Mutersbaugh HAND SPRING REPAIRER [employer].; [employer]. 03-03-2017 14:35-0400 Heart rate 67 /min Skyla K Mutersbaugh HAND SPRING REPAIRER [employer].; [employer]. 03-03-2017 14:35-0400 Systolic blood pressure 119 mm[Hg] Skyla K Mutersbaugh HAND SPRING REPAIRER [facility] [facility].; [employer] [facility]. 02-09-2017 10:30-0400 Body height 165.1 cm Skyla K Mutersbaugh HAND SPRING REPAIRER EscobarHyper[employer], Inc.; [employer]. 02-09-2017 10:30-0400 Body mass index (BMI) [Ratio] 24.46 kg/m2 Skyla K Mutersbaugh HAND SPRING REPAIRER [facility]Le[employer] [facility].; [employer]. 02-09-2017 10:30-0400 Body surface area Derived from formula 1.74 m2 Skyla K Mutersbaugh HAND SPRING REPAIRER EscobarHyperpot, Inc.; [employer]. 02-09-2017 10:30-0400 Body temperature 98.8 [degF] Skyla K Mutersbaugh HAND SPRING REPAIRER [employer].; [employer]. 02-09-2017 10:30-0400 Body weight 66.68 kg Skyla K Mutersbaugh HAND SPRING REPAIRER [employer].; [employer]. 02-09-2017 10:30-0400 Diastolic blood pressure 73 mm[Hg] Skyla K Mutersbaugh HAND SPRING REPAIRER [facility].; [employer]. 02-09-2017 10:30-0400 Heart rate 63 /min Skyla K Mutersbaugh HAND SPRING REPAIRER [facility] [facility].; [employer]. 02-09-2017 10:30-0400 Systolic blood pressure 130 mm[Hg] Skyla K Mutersbaugh HAND SPRING REPAIRER [employer].; [employer]. 01-08-2017 15:15-0400 Body height 165.1 cm Flora Saunders RN [place] [employer]. 01-08-2017 15:15-0400 Body mass index (BMI) [Ratio] 23.96 kg/m2 Flora Saunders RN [employer].; [employer]. 01-08-2017 15:15-0400 Body surface area Derived from formula 1.72 m2 Flora Saunders RN [employer], [employer].; [employer]. 01-08-2017 15:15-0400 Body temperature 98.7 [degF] Flora Saunders RN [employer], [employer].; [employer] 01-08-2017 15:15-0400 Body weight 65.32 kg Flora Saunders RN [employer], [employer]; [employer]. 01-08-2017 15:15-0400 Diastolic blood pressure 78 mm[Hg] Flora Saunders RN [employer]. 01-08-2017 15:15-0400 Heart rate 74 /min Flora Saunders RN [employer], [employer]; [employer]. 01-08-2017 15:15-0400 Systolic blood pressure 114 mm[Hg] Flora Saunders RN [employer].; [employer]. 12-20-2016 08:10-0400 Body height 165.1 cm Grace Cornejo LPN [employer], [employer]; [employer]. 12-20-2016 08:10-0400 Body mass index (BMI) [Ratio] 23.96 kg/m2 Grace Cornejo LPN [employer], Inc.; [employer]. 12-20-2016 08:10-0400 Body surface area Derived from formula 1.72 m2 Grace Cornejo LPN [employer], [employer].; [employer]. 12-20-2016 08:10-0400 Body weight 65.32 kg Grace Cornejo LPN [employer], [employer]; [employer]. 12-20-2016 08:10-0400 Diastolic blood pressure 77 mm[Hg] Grace Cornejo LPN [employer], [employer].; [employer]. 12-20-2016 08:10-0400 Heart rate 66 /min Grace Cornejo LPN [employer], [employer]; [employer]. 12-20-2016 08:10-0400 Systolic blood pressure 114 mm[Hg] Grace Cornejo HAND SPRING REPAIRER [facility], Inc.; [employer], [employer] 12-17-2016 10:36-0400 Body height 165.[address], Inc.; [employer] 12-17-2016 10:36-0400 Body mass index (BMI) [Ratio] 23.96 kg/m2 Julia Gottlieb Ange [facility], Inc.; [employer]. 12-17-2016 10:36-0400 Body surface area Derived from formula 1.[address] [facility], Inc.; [employer]. 12-17-2016 10:36-0400 Body weight 65.32 kg Julia M Ange HAND SPRING REPAIRER EscobarHyperpot, Inc.; [employer]. 12-17-2016 10:36-0400 Diastolic blood pressure 80 mm[Hg] Julia Bull Cassidy [facility], Inc.; [employer]. 12-17-2016 10:36-0400 Heart rate 70 /min Julia Bull Cassidy [facility] Inc.; [employer]. 12-17-2016 10:36-0400 Systolic blood pressure 133 mm[Hg] Julia Gottlieb Ange HAND SPRING REPAIRER Escobar[employer], Inc.; [employer]. 12-02-2016 16:030500 Body height 165.1 cm Skyla Marily Da Silvaersbaugh HAND SPRING REPAIRER [employer].; [employer]. 12-02-2016 16:03-0500 Body mass index (BMI) [Ratio] 22.8 kg/m2 Skyla K Mutersbaugh HAND SPRING REPAIRER EscobarHyper[employer], Inc.; [employer]. 12-02-2016 16:030500 Body surface area Derived from formula 1.68 m2 Skyla K Mutersbaugh HAND SPRING REPAIRER EscobarHyperpot, Inc.; [employer]. 12-02-2016 16:030500 Body weight 62.14 kg Skyla K Mutersbaugh HAND SPRING REPAIRER [place] [employer] [facility], Inc.; [employer], [employer] 12-02-2016 16:03-0500 Diastolic blood pressure 75 mm[Hg] Skyla Marily Gillbaugh HAND SPRING REPAIRER [employer] [facility], Inc.; [employer], Inc. 12-02-2016 16:03-0500 Heart rate 69 /min Skyla Marily Gillbaugh HAND SPRING REPAIRER [employer] [facility], Inc.; [employer], Inc. 12-02-2016 16:03-0500 Systolic blood pressure 113 mm[Hg] Skyla Gillbaugh HAND SPRING REPAIRER [facility], Inc.; [employer], Inc. 05-24-2015 15:38-0400 Body height 165.1 cm Grace Cornejo HAND SPRING REPAIRER [employer] [facility], Inc.; [employer], [employer] 05-24-2015 15:38-0400 Body mass index (BMI) [Ratio] 21.63 kg/m2 Grace Cornejo [facility] [employer] [facility], Inc.; [employer], [employer] 05-24-2015 15:38-0400 Body surface area Derived from formula 1.65 m2 Grace Cornejo HAND SPRING REPAIRER [facility], Inc.; [employer], [employer] 05-24-2015 15:38-0400 Body temperature 98.4 [degF] Grace Cornejo HAND SPRING REPAIRER [facility], Inc.; [employer], [employer] 05-24-2015 15:38-0400 Body weight 58.97 kg Grace Cornejo ROSHNI [facility], Inc.; [employer], [employer] 05-24-2015 15:38-0400 Diastolic blood pressure 77 mm[Hg] Grace Cornejo HAND SPRING REPAIRER [facility], Inc.; [employer], [employer] 05-24-2015 15:38-0400 Heart rate 60 /min Grace Cornejo HAND SPRING REPAIRER [facility], Inc.; [employer], [employer] 05-24-2015 15:38-0400 Systolic blood pressure 119 mm[Hg] Grace Cornejo HAND SPRING REPAIRER [facility], Inc.; [employer], [employer] 05-15-2014 16:05-0400 Body height 165.1 cm Sabiha Crow Wilson LPN [facility], Inc.; [employer], [employer] 05-15-2014 16:05-0400 Body mass index (BMI) [Ratio] 21.47 kg/m2 Sabiha Wilson LPN [facility], Inc.; [employer], [employer] 05-15-2014 16:05-0400 Body surface area Derived from formula 1.64 m2 Sabiha Wilson LPN [employer]obar[employer], Inc.; [employer], [employer]. 05-15-2014 16:05-0400 Body temperature 98.1 [degF] Sabihamary Wilson [facility] Inc.; [employer], Inc. 05-15-2014 16:05-0400 Body weight 58.51 kg Sabiha Wilson LPN EscobarHyperpot, Inc.; [employer], Inc. 05-15-2014 16:05-0400 Diastolic blood pressure 73 mm[Hg] Sabiha Wilson LPN [employer] 05-15-2014 16:05-0400 Heart rate 61 /min Sabiha Wilson HAND SPRING REPAIRER [employer] 05-15-2014 16:05-0400 Systolic blood pressure 122 mm[Hg] Sabiha Wilson LPN [employer] 02-16-2014 16:17-0400 Body height 165.1 cm Ashwini Clemente HAND SPRING REPAIRER [employer] [facility], Inc.; [employer] 02-16-2014 16:17-0400 Body mass index (BMI) [Ratio] 20.63 kg/m2 AshwiniGianna Cornejo HAND SPRING REPAIRER [employer] 02-16-2014 16:17-0400 Body surface area Derived from formula 1.61 m2 Grace Cornejo HAND SPRING REPAIRER [employer] 02-16-2014 16:17-0400 Body temperature 98.3 [degF] AshwiniGianna Cornejo HAND SPRING REPAIRER [employer] 02-16-2014 16:17-0400 Body weight 56.25 kg Grace Cornejo ROSHNI [facility] [facility], Inc.; [employer] 02-16-2014 16:17-0400 Diastolic blood pressure 85 mm[Hg] Grace Cornejo ROSHNI [facility] [facility], Inc.; [employer] 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 12-06-2013 13:31-0400 Body height 165.1 cm Karly Ochoa LPN [employer] 12-06-2013 13:31-0400 Body mass index (BMI) [Ratio] 18.89 kg/m2 Karly Ochoa LPN [employer] 12-06-2013 13:31-0400 Body surface area Derived from formula 1.55 m2 Karly Ochoa LPN [employer] 12-06-2013 13:31-0400 Body temperature 98.9 [degF] Karly Ochoa LPN [facility] [place] [employer] 12-06-2013 13:31-0400 Body weight 51.48 kg Karly Ochoa LPN [employer] 12-06-2013 13:31-0400 Diastolic blood pressure 73 mm[Hg] Karly Ochoa LPN [employer] 12-06-2013 13:31-0400 Heart rate 70 /min Karly Ochoa LPN [employer] 12-06-2013 13:31-0400 Inhaled oxygen concentration 20 % Karly Ochoa LPN [facility], [facility].; [employer] [facility], [facility]. 12-06-2013 13:31-0400 SaO2% (BldA) [Mass fraction] 99 % Karly Ochoa LPN [facility], Inc.; [employer], [employer] 12-06-2013 13:31-0400 Systolic blood pressure 104 mm[Hg] Karly Ochoa LPN [facility], Inc.; [employer], [facility]. 12-03-2013 10:54-0500 Body height 165.1 cm Sabiha Wilson LPN [facility], Inc.; [employer], [employer] 12-03-2013 10:54-0500 Body mass index (BMI) [Ratio] 18.47 kg/m2 Sabiha Wilson LPN [facility], Inc.; [employer], [employer] 12-03-2013 10:54-0500 Body surface area Derived from formula 1.54 m2 Sabiha Wilson LPN [place] [employer] [facility], [facility].; [employer], [facility]. 12-03-2013 10:54-0500 Body temperature 98 [degF] Sabiha Wilson HAND SPRING REPAIRER [employer] [facility], [facility].; [employer], [employer] 12-03-2013 10:54-0500 Body weight 50.35 kg Sabiha Wilson LPN [employer] [facility], [facility].; [employer]. 12-03-2013 10:54-0500 Diastolic blood pressure 83 mm[Hg] Sabiha Wilson LPN [place] [employer] [facility], Inc.; [employer]. 12-03-2013 10:54-0500 Heart rate 87 /min Sabiha Wilson LPN [employer] [facility], Inc.; [employer]. 12-03-2013 10:54-0500 Inhaled oxygen concentration 20 % Sabiha Wilson LPN [employer] [facility], Inc.; [employer]. 12-03-2013 10:54-0500 SaO2% (BldA) [Mass fraction] 99 % Sabiha Wilson LPN [employer] [facility], Inc.; [employer]. 12-03-2013 10:54-0500 Systolic blood pressure 118 mm[Hg] Sabiha Wilson LPN [employer] [facility], Inc.; [employer]. 12-01-2013 08:59-0500 Body height 165.1 cm Julia Gottlieb Ange [facility] [employer] [facility], [facility].; [employer]. 12-01-2013 08:59-0500 Body mass index (BMI) [Ratio] 19.14 kg/m2 Julia Gottlieb Ange [facility] [employer] [facility] Inc.; [employer]. 12-01-2013 08:59-0500 Body surface area Derived from formula 1.56 m2 [facility].; [employer]. 12-01-2013 08:59-0500 Body temperature 99.9 [degF] Julia [facility] An[facility].; [employer]. 12-01-2013 08:59-0500 Body weight 52.16 kg [facility] [facility], [employer]; [employer]. 12-01-2013 08:59-0500 Diastolic blood pressure 77 mm[Hg] Julia [facility]lieb An[facility].; [employer]. 12-01-2013 08:59-0500 Heart rate 93 /min Julia [facility]lieb An[facility].; [employer]. 12-01-2013 08:59-0500 Systolic blood pressure 120 mm[Hg] Julia [facility]lieb An[facility].; [employer]. 07-21-2013 13:50-0400 Body weight 54.43 kg Sabiha Wilson LPN [employer] [facility].; [employer]. 06-27-2013 10:07-0400 Body height 165.1 cm Sabiha Wilson HAND SPRING REPAIRER [employer] [facility].; [employer]. 06-27-2013 10:07-0400 Body mass index (BMI) [Ratio] 19.3 kg/m2 Sabiha Wilson HAND SPRING REPAIRER [employer] [facility].; [employer]. 06-27-2013 10:07-0400 Body surface area Derived from formula 1.57 m2 Sabiha Crow Wilson LPN [employer] [facility], Inc.; [employer] 06-27-2013 10:07-0400 Body weight 52.62 kg Sabihanahomi Wilson LPN [employer] [facility], Inc.; [employer] 06-27-2013 10:07-0400 Diastolic blood pressure 80 mm[Hg] Sabiha Crow Wilson LPN [employer] [facility], Inc.; [employer] 06-27-2013 10:07-0400 Heart rate 77 /min Sabiha Crow Wilson [facility], Inc.; [employer], [employer] 06-27-2013 10:07-0400 Systolic blood pressure 128 mm[Hg] Sabiha Wilson LPN [employer] [facility], Inc.; [employer] 03-09-2013 14:10-0400 Body height 165.1 cm Sabiha Wilson LPN [employer] [facility], Inc.; [employer] 03-09-2013 14:10-0400 Body mass index (BMI) [Ratio] 20.14 kg/m2 Sabiha Wilson HAND SPRING REPAIRER [employer] 03-09-2013 14:10-0400 Body surface area Derived from formula 1.6 m2 Sabiha Wilson HAND SPRING REPAIRER [employer], [employer] 03-09-2013 14:10-0400 Body temperature 99.4 [degF] Sabiha Wilson HAND SPRING REPAIRER [employer], [employer] 03-09-2013 14:10-0400 Body weight 54.89 kg Sabiha Crow Wilson LPN [employer], [employer] 03-09-2013 14:10-0400 Diastolic blood pressure 81 mm[Hg] Sabiha Wilson LPN [employer], [employer] 03-09-2013 14:10-0400 Heart rate 79 /min Sabiha Wilson LPN [employer], [facility].; [employer]. 03-09-2013 14:10-0400 Systolic blood pressure 124 mm[Hg] Sabiah Wilson HAND SPRING REPAIRER [facility], Inc.; [facility]. 02-24-2013 13:14-0400 Body height 165.1 cm Julia M Ange [facility], [facility].; [facility]. 02-24-2013 13:14-0400 Body mass index (BMI) [Ratio] 20.63 kg/m2 Julia Bull Ange [facility].; [facility]. 02-24-2013 13:14-0400 Body surface area Derived from formula 1.61 m2 Julia Gottlieb Ange [facility], [facility].; [facility]. 02-24-2013 13:140400 Body weight 56.25 kg Julia M Ange [facility], [facility].; [facility]. 02-24-2013 13:14-0400 Diastolic blood pressure 63 mm[Hg] Julia Cassidy [facility].; [facility]. 02-24-2013 13:14-0400 Heart rate 67 /min Julia Cassidy [facility], [facility].; [facility]. 02-24-2013 13:14-0400 Systolic blood pressure 112 mm[Hg] Julia Cassidy [facility], [facility].; [facility]. 01-26-2013 15:34-0400 Body weight 55.16 kg Sabiha Wilson [facility].; [facility], [facility]. 01-03-2013 15:33-0400 Body weight 55.7 kg Sabiha Wilson LPN [facility], Inc.; [facility], [facility]. 12-14-2012 15:45-0400 Body height 152.4 cm Karly Ochoa LPN [facility], [facility].; [place] [employer] [facility], [facility]. 12-14-2012 15:45-0400 Body mass index (BMI) [Ratio] 23.53 kg/m2 Karly Ochoa [facility], Inc.; [employer] [facility], Inc[facility] 12-14-2012 15:45-0400 Body surface area Derived from formula 1.51 m2 Karly Ochoa LPN [place] [employer] [facility], Inc.; [employer] 12-14-2012 15:45-0400 Body weight 54.66 kg Karly Gabriela BARAKAT [facility] [employer] [facility], Inc.; [employer] 12-14-2012 15:45-0400 Diastolic blood pressure 82 mm[Hg] Karly Ochoa LPN [place] [employer] [facility], Inc.; [employer] 12-14-2012 15:45-0400 Heart rate 79 /min Karly Gabriela BARAKAT [place] [employer] [facility], Inc.; [employer] 12-14-2012 15:45-0400 Systolic blood pressure 122 mm[Hg] Karly Ochoa LPN [place] [employer] [facility], Inc.; [employer] 09-16-2012 13:11-0500 Body height 152.4 cm Sabiha Wilson LPN [employer] [facility], Inc.; [employer] 09-16-2012 13:11-0500 Body mass index (BMI) [Ratio] 25.39 kg/m2 Sabiha Wilson LPN [place] [employer] [facility], Inc.; [employer] 09-16-2012 13:11-0500 Body surface area Derived from formula 1.55 m2 Sabiha Wilson LPN [employer] [facility], Inc.; [employer] 09-16-2012 13:11-0500 Body weight 58.97 kg Sbaiha Wilson LPN [employer] 09-16-2012 13:11-0500 Diastolic blood pressure 66 mm[Hg] Sabiha Wilson LPN [employer] [facility], Inc.; [employer] 09-16-2012 13:11-0500 Heart rate 59 /min Sabiha Wilson LPN [employer] [facility], Inc.; [employer] 09-16-2012 13:11-0500 Systolic blood pressure 102 mm[Hg] Sabiha Wilson LPN [employer] [facility], Inc.; [employer] 08-03-2012 10:47-0500 Body height 167.64 cm Sabiha Wilson LPN [employer] [facility], Inc.; [employer] 08-03-2012 10:47-0500 Body mass index (BMI) [Ratio] 21.14 kg/m2 Sabiha Wilson HAND SPRING REPAIRER [employer] [facility], Inc.; [employer] 08-03-2012 10:47-0500 Body surface area Derived from formula 1.67 m2 Sabiha Wilson LPN [employer] [facility], Inc.; [employer], [employer] 08-03-2012 10:47-0500 Body weight 59.42 kg Sabiha Wilson LPN [employer] [facility], Inc.; [employer], [employer] 08-03-2012 10:47-0500 Diastolic blood pressure 76 mm[Hg] Sabiha Wilson HAND SPRING REPAIRER [employer] [facility], Inc.; [employer] 08-03-2012 10:47-0500 Heart rate 69 /min Sabiha Wilson HAND SPRING REPAIRER [employer] [facility], Inc.; [employer], [employer] 08-03-2012 10:47-0500 Systolic blood pressure 125 mm[Hg] Sabiha Wilson LPN [employer] [facility], Inc.; [employer] 07-27-2012 11:27-0400 Body height 167.64 cm Sabiha Wilson LPN [employer] [facility], Inc.; [employer], [employer] 07-27-2012 11:27-0400 Body mass index (BMI) [Ratio] 20.66 kg/m2 Sabiha Wilson LPN [employer], [employer] 07-27-2012 11:27-0400 Body surface area Derived from formula 1.65 m2 Sabiha Wilson LPN [employer], [employer] 07-27-2012 11:27-0400 Body temperature 97 [degF] Sabiha Wilson HAND SPRING REPAIRER [employer] 07-27-2012 11:27-0400 Body weight 58.06 kg Sabiha Crow Wilson LPN [employer] [facility], Inc.; [employer] 07-27-2012 11:27-0400 Diastolic blood pressure 75 mm[Hg] Sabiha Wilson LPN [employer] [facility], Inc.; [employer] 07-27-2012 11:27-0400 Heart rate 72 /min Sabiha Wilson LPN [employer] [facility], Inc.; [employer] 07-27-2012 11:27-0400 Systolic blood pressure 114 mm[Hg] Sabiha Wilson LPN [employer] [facility], Inc.; [employer] 07-02-2012 11:01-0400 Body height 167.64 cm Sabiha Wilson LPN [employer] [facility], Inc.; [employer] 07-02-2012 11:01-0400 Body mass index (BMI) [Ratio] 21.14 kg/m2 Sabiha Wilson HAND SPRING REPAIRER [employer] [facility], Inc.; [employer] 07-02-2012 11:01-0400 Body surface area Derived from formula 1.67 m2 Sabiha Wilson LPN [employer] 07-02-2012 11:01-0400 Body weight 59.42 kg Sabiha Wilson LPN [employer], [employer] 07-02-2012 11:01-0400 Diastolic blood pressure 74 mm[Hg] Sabiha Wilson LPN [employer] [facility], Inc.; [employer] 07-02-2012 11:01-0400 Heart rate 67 /min Sabiha Wilson LPN [employer], [employer] 07-02-2012 11:01-0400 Systolic blood pressure 120 mm[Hg] Sabiha Wilson LPN [employer], [employer] 05-18-2012 16:53-0400 Body height 167.64 cm Sabiha Wilson LPN [employer], [employer] 05-18-2012 16:53-0400 Body mass index (BMI) [Ratio] 20.82 kg/m2 Sabiha Wilson LPN [employer] [facility], Inc.; [employer] 05-18-2012 16:53-0400 Body surface area Derived from formula 1.66 m2 Sabiha Wilson LPN [employer] [facility], Inc.; [employer] 05-18-2012 16:53-0400 Body temperature 98.8 [degF] Sabiha Wilson HAND SPRING REPAIRER [employer] [facility], Inc.; [employer] 05-18-2012 16:53-0400 Body weight 58.51 kg Sabiha Wilson LPN [employer] [facility], Inc.; [employer], [employer] 05-18-2012 16:53-0400 Diastolic blood pressure 76 mm[Hg] Sabiha Wilson LPN [employer] [facility], Inc.; [employer] 05-18-2012 16:53-0400 Heart rate 77 /min Sabiha Wilson LPN [employer] [facility], Inc.; [employer], [employer] 05-18-2012 16:53-0400 Systolic blood pressure 117 mm[Hg] Sabiha Wilson HAND SPRING REPAIRER [employer] [facility], Inc.; [employer] 04-14-2012 09:43-0400 Body height 167.64 cm Sabiha Wilson LPN [employer] [facility], Inc.; [employer], [employer] 04-14-2012 09:43-0400 Body mass index (BMI) [Ratio] 21.14 kg/m2 Sabiha Wilson LPN [employer] [facility], Inc.; [employer], [employer] 04-14-2012 09:43-0400 Body surface area Derived from formula 1.67 m2 Sabiha Wilson HAND SPRING REPAIRER [employer] [facility], Inc.; [employer], [employer] 04-14-2012 09:43-0400 Body temperature 98.5 [degF] Sabiha Wilson LPN [employer] [facility], Inc.; [employer], [employer] 04-14-2012 09:43-0400 Body weight 59.42 kg Sabiha Wilson LPN [employer] [facility], Inc.; [employer] 04-14-2012 09:43-0400 Diastolic blood pressure 81 mm[Hg] Sabiha Wilson LPN [facility], Inc.; [employer] 04-14-2012 09:43-0400 Heart rate 58 /min Sabiha Wilson LPN [facility], Inc.; [employer] 04-14-2012 09:43-0400 Systolic blood pressure 120 mm[Hg] Sabiha Wilson LPN [place] [employer] [facility], Inc.; [employer] 02-24-2012 09:46-0400 Body height 167.64 cm Sabiha Wilson LPN [employer] [facility], Inc.; [employer] 02-24-2012 09:46-0400 Body mass index (BMI) [Ratio] 20.82 kg/m2 Sabiha Wilson LPN [place] [employer] [facility], Inc.; [employer] 02-24-2012 09:46-0400 Body surface area Derived from formula 1.66 m2 Sabiha Wilson LPN [place] [employer] [facility], Inc.; [employer] 02-24-2012 09:46-0400 Body weight 58.51 kg Sabiha Wilson LPN [employer] [facility], Inc.; [employer] 02-24-2012 09:46-0400 Diastolic blood pressure 87 mm[Hg] Sabiha Wilson LPN [place] [employer] [facility], Inc.; [employer] 02-24-2012 09:46-0400 Heart rate 75 /min Sabiha Wilson LPN [place] [employer] [facility], Inc.; [employer] 02-24-2012 09:46-0400 Systolic blood pressure 133 mm[Hg] Sabiha Wilson LPN [employer] [facility], Inc.; [employer] 02-17-2012 09:51-0400 Body height 167.64 cm Julia Cassidy LPN [employer] [facility], Inc.; [employer] 02-17-2012 09:51-0400 Body mass index (BMI) [Ratio] 20.66 kg/m2 Julia Cassidy LPN [employer] [facility].; [employer]. 02-17-2012 09:51-0400 Body surface area Derived from formula 1.65 m2 Julia Gottlieb Ange BARAKAT [employer] [facility].; [employer]. 02-17-2012 09:51-0400 Body temperature 98.7 [degF] Julia Gottlieb Ange BARAKAT [employer]. 02-17-2012 09:51-0400 Body weight 58.06 kg Julia Burroughslabach ROSHNI [employer]. 02-17-2012 09:51-0400 Diastolic blood pressure 76 mm[Hg] Julia Cassidy ROSHNI [employer]. 02-17-2012 09:51-0400 Heart rate 63 /min Julia Gottlieb Ange BARAKAT [employer].; [employer]. 02-17-2012 09:51-0400 Systolic blood pressure 125 mm[Hg] Julia Gottlieb Ange BARAKAT [employer].; [employer]. 12-02-2011 15:41-0500 Body weight 61.69 kg Julia Cassidy ROSHNI [employer].; [employer]. 12-02-2011 15:41-0500 Diastolic blood pressure 66 mm[Hg] Julia Gottlieb Ange BARAKAT [employer].; [employer]. 12-02-2011 15:41-0500 Heart rate 61 /min Julia Gottlieb Ange LPN [employer].; [employer]. 12-02-2011 15:41-0500 Systolic blood pressure 104 mm[Hg] Julia Cassidy ROSHNI [employer].; [employer]. 10-02-2011 14:44-0500 Body height 167.64 cm Nimco Watson RN Work Phone: [employer] 10-02-2011 14:44-0500 Body mass index (BMI) [Ratio] 21.31 kg/m2 Nimco Watson RN Work Phone: [employer] 10-02-2011 14:44-0500 Body surface area Derived from formula 1.68 m2 Nimco Watson RN Work Phone: [employer] 10-02-2011 14:44-0500 Body weight 59.88 kg Nimco Watson RN Work Phone: [employer] 10-02-2011 14:44-0500 Diastolic blood pressure 74 mm[Hg] Nimco Watson RN Work Phone: [employer] 10-02-2011 14:44-0500 Heart rate 65 /min Nimco Watson RN Work Phone: [employer] 10-02-2011 14:44-0500 Systolic blood pressure 117 mm[Hg] Nimco Watson RN Work Phone: [employer] Encounters Encounter Date Encounter Type Care Provider Facility Start: 11-30-2023 End: 11-30-2023 Office outpatient visit 15 minutes Luke Ruthann PA-C Work Phone: [employer]. Start: 10-26-2023 End: 10-26-2023 Luke Ruthann PA-C Work Phone: [employer]. Start: 09-29-2023 End: 09-29-2023 Luke Ruthann PA-C Work Phone: [employer]. Start: 09-16-2023 End: 09-16-2023 Office outpatient visit 15 minutes Luke Ruthann PA-C Work Phone: [employer]. Start: 09-14-2023 End: 09-14-2023 Luke Ruthann PA-C Work Phone: [employer]. Start: 09-04-2023 End: 09-04-2023 Luke Ruthann PA-C Work Phone: [employer]. Start: 09-03-2023 End: 09-03-2023 Office outpatient visit 15 minutes Luke Ruthann PA-C Work Phone: [employer]. Start: 09-01-2023 End: 09-01-2023 Luke Ruthann PA-C Work Phone: [employer]. Start: 09-01-2023 End: 09-01-2023 Luke Ruthann PA-C Work Phone: [employer]. Start: 08-26-2023 End: 08-26-2023 Office outpatient visit 25 minutes Luke Ruthann PA-C Work Phone: [employer]. Start: 07-24-2023 End: 07-24-2023 Luke Ruthann PA-C Work Phone: [employer]. Start: 05-01-2023 End: 05-01-2023 Luke Ruthann PA-C Work Phone: [employer]. Start: 03-16-2023 End: 03-16-2023 Office outpatient visit 15 minutes Luke Ruthann PA-C Work Phone: [employer]. Start: 02-06-2023 End: 02-06-2023 Luke Ruthann PA-C Work Phone: [employer]. Start: 01-20-2023 End: 01-19-2023 Luke Ruthann PA-C Work Phone: [employer]. Start: 01-20-2023 End: 01-20-2023 Initial preventive medicine new patient 40-64yrs Luke Ruthann PA-C Work Phone: [employer]. Start: 12-23-2022 End: 12-23-2022 Luke Ruthann PA-C Work Phone: [employer]. Start: 12-17-2022 End: 12-17-2022 Luke Ruthann PA-C Work Phone: [employer]. Start: 12-16-2022 End: 12-16-2022 Office outpatient visit 15 minutes Luke Ruthann PA-C Work Phone: [employer]. Start: 10-10-2022 End: 10-10-2022 Office outpatient visit 15 minutes Luke Ruthann PA-C Work Phone: [employer]. Start: 10-03-2022 End: 10-03-2022 Luke Ruthann PA-C Work Phone: [employer]. Start: 10-01-2022 End: 10-01-2022 Luke Ruthann PA-C Work Phone: [employer]. Start: 09-30-2022 End: 09-30-2022 Luke Ruthann PA-C Work Phone: [employer]. Start: 09-26-2022 End: 09-26-2022 Office outpatient visit 15 minutes Luke Ruthann PA-C Work Phone: [employer]. Start: 09-02-2022 End: 09-02-2022 Luke Ruthann PA-C Work Phone: [employer]. Start: 08-27-2022 End: 08-27-2022 Luke Ruthann PA-C Work Phone: [employer]. Start: 07-25-2022 End: 07-25-2022 Luke Ruthann PA-C Work Phone: [employer]. Start: 07-24-2022 End: 07-24-2022 Luke Ruthann PA-C Work Phone: [employer] Start: 07-15-2022 End: 07-15-2022 Office outpatient visit 15 minutes Luke Ruthann PA-C Work Phone: [employer] Start: 06-23-2022 End: 06-23-2022 Office outpatient visit 15 minutes Luke Ruthann PA-C Work Phone: [employer] Start: 06-23-2022 End: 06-23-2022 Luke Ruthann PA-C Work Phone: [employer] Start: 06-03-2022 End: 06-03-2022 Office outpatient visit 25 minutes Luke Ruthann PA-C Work Phone: [employer] Start: 05-19-2022 End: 05-19-2022 Ariannake Ruthann PA-C Work Phone: [employer] Start: 05-10-2022 End: 05-10-2022 ambulatory GINO PA-C [facility] Start: 05-09-2022 End: 05-09-2022 Ariannake Ruthann PA-C Work Phone: [employer] Start: 05-09-2022 Refill Alexandra Weir MD Work Phone: [facility] Procedures Date Procedure Procedure Detail Performing Clinician Start: 07-24-2023 End: 07-24-2023 Flu immunize order/admin Choco Fischeret ler PA-C Work Phone: Start: 05-01-2023 [...] Scr dep neg, no plan reqd Gino Kidd PA-C Work Phone: Start: 11-26-2021 End: 11-26-2021 Screening mammography Joyce Keating OLVIN Start: 07-17-2021 End: 07-17-2021 Depression screening Gino [...] foot complete minimum 3 views Mckenna Mathiasmiguel HAND SPRING REPAIRER Start: 12-16-2018 End: 12-16-2018 Depression screening Tanner [...] Author Start: 03-03-2025 DIABETES SCREEN DIABETES SCREEN [facility] Start: 11-24-2024 Colonoscopy COLONOSCOPY [facility] Start: 11-24-2024 COLORECTAL CANCER SCREENING COLORECTAL CANCER SCREENING [facility] Start: 01-20-2024 [facility] Start: 11-30-2023 Cul bact xcpt urine blood/stool aerobic isol [employer]; [employer] Start: 09-29-2023 25 hydroxy includes fractions if performed [facility] [employer] Start: 09-29-2023 Lipid panel [facility] [employer] Start: 08-26-2023 Radiologic exam abdomen 3+ views [employer]; [employer] Start: 05-29-2022 Influenza vaccination INFLUENZA (#1) [facility] Start: 01-29-2022 Adult depression screening assessment DEPRESSION SCREENING [facility] Start: 2021 COLOGUARD (FIT-DNA) COLOGUARD (FIT-DNA) [facility] Start: [address] COLONOGRAPHY [facility] Start: 2021 DIABETES SCREEN DIABETES SCREEN [facility] Start: 2021 FECAL OCCULT BLOOD FECAL OCCULT BLOOD [facility] Start: 2021 LIPID SCREEN LIPID SCREEN [facility] Start: 2021 SIGMOIDOSCOPY SIGMOIDOSCOPY [facility] Start: 06-25-2021 End: 07-08-2021 Ct abdomen & pelvis w/contrast material [employer]; [employer] Start: 05-29-2021 Influenza vaccination INFLUENZA (#1) [facility] Start: 11-05-2017 Mammography MAMMOGRAM [facility] Start: 08-26-2017 End: 08-26-2017 DEPUTY SHERIFF BAILIFF DEPUTY SHERIFF BAILIFF [facility] Work Phone: Start: 08-26-2017 End: 08-26-2017 Follow Up Appt Other Follow Up Appt Other [facility] Work Phone: Start: 08-26-2017 End: 08-26-2017 Appointment Appointment [facility] Work Phone: Start: 08-18-2017 End: 08-24-2017 Cardiovascular stress test using treadmill Treadmill stress test (no imaging) [facility] Work Phone: Start: 1995 SHINGRIX VACCINE (1 of 2) SHINGRIX VACCINE (1 of 2) [facility] Start: 1995 Urine microalbumin profile DTAP,TDAP,TD (1 - Tdap) [facility] Start: 1994 HEPATITIS C SCREENING HEPATITIS C SCREENING [facility] Start: 1994 HIV SCREENING HIV SCREENING [facility] Start: 1988 COVID-19 VACCINE (1) COVID-19 VACCINE (1) [facility] Start: 1982 PNEUMOCOCCAL (1 - PCV) PNEUMOCOCCAL (1 - PCV) [facility] Start: 04-28-1977 COVID-19 VACCINE (#1) COVID-19 VACCINE (#1) [facility] Start: 1976 HEPATITIS B (1 of 3 - 3-dose series) HEPATITIS B (1 of 3 - 3-dose series) [facility], [facility].; [facility], [facility]. Immunizations Immunization Date Immunization Notes Care Provider Guillermo cowan 07-24-2023 influenza, injectabl e, quadrivalent, preservative free Luke Ruthann PA-C Work Phone: [facility], [employer]; [employer] [facility], [facility]. 07-25-2022 Luke Hochstetle r PA-C Work Phone: [facility], [employer]; [employer], [facility]. 07-24-2022 influenza, injectabl e, quadrivalent, contains preservative Luke Ruthann PA-C Work Phone: [facility], [employer] 06-29-2020 influenza, injectabl e, quadrivalent, contains preservative Luke Ruthann PA-C Work Phone: [facility] 01-11-2019 tetanus toxoid, reduced diphtheria toxoid, and acellular pertussis vaccine, adsorbed Luke Ruthann PA-C Work Phone: [facility] 07-25-2016 influenza virus vaccine, unspecified formulation Alexandra Weir MD Work Phone: [facility] 07-21-2013 influenza, seasonal, injectable Luke Ruthann PA-C Work Phone: [facility].; [facility] 08-31-2009 hepatitis B vaccine, adult dosage Luke Ruthann PA-C Work Phone: [facility].; [facility]. 05-31-2009 hepatitis B vaccine, adult dosage Luke Ruthann PA-C Work Phone: [facility].; [facility]. 04-30-2009 hepatitis B vaccine, adult dosage Luke Ruthann PA-C Work Phone: [facility].; [facility]. 04-30-2009 tetanus toxoid, reduced diphtheria toxoid, and acellular pertussis vaccine, adsorbed Luke Ruthann PA-C Work Phone: [facility].; [place] [employer] [facility]. 05-15-1989 measles, mumps and rubella virus vaccine Luke Ruthann PA-C Work Phone: [facility] [place] [employer] [facility]. 12-09-1981 diphtheria, tetanus toxoids and acellular pertussis vaccine, 5 pertussis antigens Luke Ruthann PA-C Work Phone: [facility].; [place] [employer] [facility]. 12-09-1981 poliovirus vaccine, inactivated Luke Ruthann PA-C Work Phone: [place] [employer] [facility].; [facility] 04-12-1978 diphtheria, tetanus toxoids and acellular pertussis vaccine, 5 pertussis antigens Luke Ruthann PA-C Work Phone: [facility].; [facility] 04-12-1978 measles, mumps and rubella virus vaccine Luke Ruthann PA-C Work Phone: [facility].; [facility] 04-12-1978 poliovirus vaccine, inactivated Luke Ruthann PA-C Work Phone: [facility].; [facility] 02-15-1977 diphtheria, tetanus toxoids and acellular pertussis vaccine, 5 pertussis antigens Luke Ruthann PA-C Work Phone: [facility].; [place] [employer] [facility] 02-15-1977 poliovirus vaccine, inactivated Luke Ruthann PA-C Work Phone: [facility].; [facility] 01-10-1977 diphtheria, tetanus toxoids and acellular pertussis vaccine, 5 pertussis antigens Luke Ruthann PA-C Work Phone: [facility]. 1976 diphtheria, tetanus toxoids and acellular pertussis vaccine, 5 pertussis antigens Luke Ruthann PA-C Work Phone: [facility].; [place] [employer] [facility]. 1976 poliovirus vaccine, inactivated Luke Ruthann PA-C Work Phone: [facility].; [employer] [facility] Payers Date Payer Category Payer Unknown [id number] 2003 Medicaid [place] [employer] [id number] 2003[facility] [phone] [place] [address] Medicaid [id number] 2003 Medicaid [place] MED[place] [id number] 2003-Present [phone] [address] [place] [address] Medicaid [id number] 1976 Unknown [id number] 2.16.840.1.902440.3.579.2. 1976 Unknown [id number] 2.16.840.1.650650.3.579.2. 1976 Unknown [id number] 2.16.840.1.099510.3.579.2. 1976 Unknown [id number] 2.16.840.1.725155.3.579.2. 1976 Unknown [id number] 2.16.840.1.650636.3.579.2 1976 Unknown [id number] 2.16.840.1.313335.3.579.2. 1976 Unknown [id number] 2.16.840.1.527043.3.579.2. 1976 Unknown [id number] 2.16.840.1.754299.3.579.2. 1976 Unknown [id number] 2.16.840.1.326134.3.579.2. 1976 Unknown [id number] 2.16.840.1.186837.3.579.2. 1976 Unknown [id number] 2.16.840.1.234858.3.579.2. 1976 Unknown [id number] 2.16.840.1.929473.3.579.2 1976 Unknown [id number] 2.16.840.1.680093.3.579.2.651 1976 Unknown [id number] 2.16.840.1.944508.3.579.2.651 1976 Unknown [id number] 2.16.840.1.421295.3.579.2.651 1976 Unknown [id number] 2.16.840.1.477726.3.579.2.651 1976 Unknown [id number] 2.16.840.1.001564.3.579.2.651 1976 Unknown [id number] 2.16.840.1.715920.3.579.2.651 1976 Unknown [id number] 2.16.840.1.950753.3.579.2.651 1976 Unknown [id number] 2.16.840.1.954465.3.579.2.651 1976 Unknown [id number] 2.16.840.1.766359.3.579.2.651 Unknown [id number] Social History Date Type Detail Facility Start: 07-31-2021 Never smoked t obacco (finding) [facility] Sex Assigned At Female [facility] Start: 09-19-2021 Alcohol intake 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 Never smoker. [facility] Clinical Notes 06-15-2010 to 05-09-2022 Telephone [...] Pam Navas Ma documented in this encounter [facility] 12-16-2021 Miscellaneous Notes Patient phones requesting refills as follows: Pending Prescriptions Disp Refills FAMOTIDINE 40 MG TABLET 180 tablet 1 Sig: TAKE 1 TABLET BY MOUTH TWICE A DAY VINCENT: Yes Please review and advise. Pam Navas Ma documented in this encounter [facility] 08-01-2021 Evaluation + Plan note Future Scheduled TestsXR Upper GI 08/01/21 [facility] 08-01-2021 Evaluation + Plan note Future Appointments Future Scheduled TestsXR Upper GI 08/01/21 [facility] 07-31-2021 Note HNO ID: [id number] Author: PATRICIO Olvera Service: Nuclear Medicine Author Type: Clinical Credit Card Specialist Type: Progress Notes Filed: 07/31/2021 9:31 AM [...] [address] PERFORMED: No IV SITE: ID only - not applicable, oral or physician administered agents given to patient POST EXAM PIV STATUS: Not applicable PROCEDURE TYPE: NM GET: 1.1 mCi Tc99m SULFUR COLLOID was administered orally via 4 ounces of Egg Beaters,1 pieces of toast, .5 ounce of jelly with 6 ounces of water orally ADMINISTRATION TIME: 07:25 PATIENT DISCHARGED TO: Ambulatory patient, left ID department area. A Diagnostic radioactive procedure has taken place, with no further precautions necessary other than routine body substance precautions. More information regarding radiation safety can be found using this link: [email or web address] SIGNATURE: PATRICIO Olvera PATIENT NAME: Carol Grissom DATE: July 31, 2021 TIME: 9:08 AM PAGER/CONTACT #: [facility] documented as of this encounter (statuses as of 12/17/2021) [facility]09-18-2010 History of Past illness Narrative* Problem Noted Date Resolved Date Primary focal hyperhidrosis 06/15/201005/29 Acne Vulgaris: Inflammatory Grade II 06/15/2010 06/15/2010 documented as of this encounter (statuses as of 05/09/2022) [facility] Diagnosis Epigastric abdominal pain Abdominal pain, epigastric [facility] Diagnosis Epigastric abdominal pain Abdominal pain, epigastric documented in this encounter [facility] course Narrative No data available for this section [facility] Discharge instructions No data available for this section [facility] Progress note No data available for this section [facility] Summary Purpose Family History Breast cancer [...] Documents on File Type Date 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 Advance Directive(s) 04/19/2021 10:05 AM Additional Source Comments INFORMATION SOURCE (unrecogn ized section and content) DATE CREATED AUTHOR AUTHOR'S ORGANIZ ATION 08/01/2021 [facility] DATE CREATED AUTHOR AUTHOR'S ORGANIZ ATION 05/26/2022 [facility] DATE CREATED AUTHOR AUTHOR'S ORGANIZ ATION 01/04/2023 [facility] DATE CREATED AUTHOR AUTHOR'S ORGANIZ ATION 03/19/2023 [facility] Source Comments (unrecognize d section and content) In the event this informatio n is protected by the Federal Confidentiality of Alcohol and Drug Abuse Patient Records regulations: The Federal rules restrict any use of the information to criminally investigate or prosecute any alcohol or drug abuse patient.[facility] the event this information is protected by the Federal Confidentiality of Alcohol and Drug Abuse Patient Records regulations: The Federal rules restrict any use of the information to criminally investigate or prosecute any alcohol or drug abuse patient.[facility] Reason for Visit (unrecogniz ed section and content) Care Teams (unrecognized sec tion and content) Telecasting Technician Relationship Specialty Start Date End Date Gino Kidd [facility] [address] PCP - General Family Practice 04/19/21 FOR [...] BE BASED ON THE PRIMARY CLINICAL RECORDS. [employer] [facility]. provides no warranty or guarantee of the accuracy or completeness of information in this document.
== END | disposition home or self-care (01) ==
LOC: LABSPEC 07:33
PROVIDERS: PCP Physician Assistant; Visit Provider Physician Assistant
DX: J02.9 Acute pharyngitis, unspecified (principal)
CPT/HCPCS: 87070

== ENCOUNTER → 2023-12-02 | Outpatient (CLI) | payer OTHER, SELFPAY ==
--- NOTE | 2023-12-02 11:44 | US_ITS ---
INDICATION: Neck nodule EXAMINATION: Ultrasound US Head/Neck Soft Tissue TECHNIQUE: Reeder scale and color doppler imaging was performed of the thyroid gland. COMPARISON: No relevant prior comparison study available FINDINGS: The submandibular glands bilaterally measuring about 3.8 x 3.3 x 1.6 cm on the right side and about 4 x 3.1 x 1.7 cm. Small palpable normal-sized node in the midline measuring about 7 x 5 x 3 mm. No other masses are identified. No other fluid collections or masses are identified US/Head/Neck Soft Tissue IMPRESSION: 1. Slightly prominent submandibular glands. 2. Small normal-appearing lymph node. 3. If symptoms persist, CT scan of the soft tissues of the neck might be of value. Electronically Signed: Thierno Minor MD at 14:40 EST ,
== END | disposition home or self-care (01) ==
LOC: US 11:43
PROVIDERS: PCP Physician Assistant; Referring Provider Internal Medicine Gastroenterology; Visit Provider Internal Medicine Gastroenterology
DX: R22.1 Localized swelling, mass and lump, neck (principal)
CPT/HCPCS: 76536

== ENCOUNTER → 2023-12-07 | Outpatient (CLI) | payer OTHER, SELFPAY ==
[2023-12-07 12:03] LABS: Erythrocyte Sedimentation Rate 6 mm/hr (0-30)
[2023-12-07 12:05] LABS: Absolute Lymphocyte Count 0.89 X10^3/uL (0.83-4.51); Absolute Neutrophil Count 7.6 X10^3/uL (2.0-7.7); Basophil# 0.01 X10^3/uL; Basophil% 0.1 % (0-1); Hematocrit 40.7 % (37-47); Hemoglobin 12.7 g/dL (12.0-15.0); Lymphocyte # 0.89 X10^3/ul (0.83-4.51); Lymphocyte % 9.9 % (19-41); Mean Corp Hgb Conc 31.2 g/dL (32-36); Mean Corpuscular Hgb 28.2 pg (27.0-32.0); Mean Corpuscular Volume 90.4 fL (81-99); Mean Platelet Vol. 11.7 fl (6.2-12.0); Monocyte# 0.45 X10^3/uL; NRBC Flagged by Analyzer 0 % (0-5); Neutrophil % 84.2 % (47-70); Platelet Count 301 K/mm3 (150-450); RBC Distribution Width CV 14.6 % (11.6-14.6); RBC Distribution Width SD 47.9 fl (35.1-43.9)
[2023-12-07 13:24] LABS: ALB/GLOB Ratio 0.9 RATIO (0.9-2.4); AST(SGOT) 8 U/L (15-37); Alanine Aminotransfer ALT/SGPT 18 U/L (13-56); Albumin, Serum 3.4 g/dL (3.2-5.0); Alkaline Phosphatase 55 U/L (45-117); Anion Gap 7 (5-15); BUN 22 mg/dL (7-18); BUN/Creat Ratio 26.2 RATIO (10-20); CRP < 2.90 mg/L (0.0-3.0); Calcium,Total 9.1 mg/dL (8.5-10.1); Chloride 108 mmol/L (98-107); Creatinine, Serum 0.84 mg/dL (0.55-1.02); EST Glomerular Filtration Rate 77 mL/min (>60); Est Glom Filt Rate - Afr Amer 94 mL/min (>60); Globulin 3.6 g/dL (2.2-4.2); Glucose 118 mg/dL (74-106); Potassium 4.2 mmol/L (3.5-5.1); Sodium Level 140 mmol/L (136-145)
== END | disposition home or self-care (01) ==
LOC: LABSPEC 09:41
PROVIDERS: PCP Physician Assistant; Visit Provider Registered Nurse
DX: M05.79 Rheumatoid arthritis with rheumatoid factor of multiple sites without organ or systems involvement (principal)
CPT/HCPCS: 36415; 80053; 85025; 85652; 86140

== ENCOUNTER → 2023-12-07 | Outpatient (CLI) | payer OTHER, SELFPAY ==
--- NOTE | 2023-12-07 13:26 | BI_ITS ---
MAMMOGRAPHY - BILATERAL SCREENING REASON FOR EXAM: Female, 48 years old. Routine annual screening examination. PERTINENT HISTORY: Grandmother with breast cancer. TECHNIQUE: Digital bilateral breast raheem (3D mammographic acquisition) in the CC and MLO projections. 2-D mediolateral oblique (MLO) and craniocaudad (CC) views of both breasts were obtained. CAD: Full Field Digital Mammography with Computer Added Detection was performed. COMPARISON: Comparison is made with prior study dated December 03, 2022 and December 03, 2021. FINDINGS: Breast Composition: The breasts are extremely dense, which lowers the sensitivity of mammography. There are no dominant masses or suspicious calcifications. No other significant abnormalities are identified. There has been no significant change since the prior study. BI/SCREENING MAMM (CAD), BILAT IMPRESSION: Stable bilateral screening mammogram. Yearly follow-up mammogram recommended. (A) ASSESSMENT CATEGORY: BIRADS Category 1: Negative. A letter regarding these results will be sent to the patient by the facility within 30 days. Approximately 10% of breast cancers are not detected by mammography. A normal mammogram should not delay biopsy of a clinically suspicious abnormality. [id number] Electronically Signed: Todd Espinosa MD at 14:54 EDT ,
== END | disposition home or self-care (01) ==
LOC: OPBI 13:26
PROVIDERS: PCP Physician Assistant; Referring Provider Obstetrics & Gynecology; Visit Provider Obstetrics & Gynecology
DX: Z12.31 Encounter for screening mammogram for malignant neoplasm of breast (principal); Z80.3 Family history of malignant neoplasm of breast
CPT/HCPCS: 77067

== ENCOUNTER → 2023-12-16 | Outpatient (CLI) | payer OTHER, SELFPAY ==
[2023-12-16 10:25] LABS: Estradiol 103.5 pg/mL
[2023-12-16 10:28] LABS: Progesterone Level 6.36 ng/mL (See Comment)
== END | disposition home or self-care (01) ==
LOC: LAB 09:32
PROVIDERS: PCP Physician Assistant
DX: N95.1 Menopausal and female climacteric states (principal)
CPT/HCPCS: 36415; 82670; 84144; 84403

== ENCOUNTER → 2024-01-15 | Outpatient (CLI) | payer OTHER, SELFPAY ==
[2024-01-15 09:19] LABS: Absolute Lymphocyte Count 1.75 X10^3/uL (0.83-4.51); Absolute Neutrophil Count 3.6 X10^3/uL (2.0-7.7); Basophil# 0.05 X10^3/uL; Basophil% 0.8 % (0-1); Eosinophil# 0.16 X10^3/uL; Eosinophils% 2.6 % (0-5); Hematocrit 40.9 % (37-47); Hemoglobin 12.8 g/dL (12.0-15.0); Lymphocyte # 1.75 X10^3/ul (0.83-4.51); Lymphocyte % 28.7 % (19-41); Mean Corp Hgb Conc 31.3 g/dL (32-36); Mean Corpuscular Hgb 28.7 pg (27.0-32.0); Mean Corpuscular Volume 91.7 fL (81-99); Mean Platelet Vol. 11.9 fl (6.2-12.0); Monocyte# 0.49 X10^3/uL; NRBC Flagged by Analyzer 0 % (0-5); Neutrophil # 3.64 X10^3/uL (2.7-7.7); Neutrophil % 59.7 % (47-70); Platelet Count 232 K/mm3 (150-450); RBC Distribution Width CV 13.6 % (11.6-14.6); RBC Distribution Width SD 46.3 fl (35.1-43.9); Red Blood Count 4.46 M/mm3 (4.2-5.4); White Blood Count 6.1 K/mm3 (4.4-11.0)
== END | disposition home or self-care (01) ==
LOC: LAB 09:07
PROVIDERS: PCP Physician Assistant; Referring Provider Physician Assistant; Visit Provider Physician Assistant
DX: R53.83 Other fatigue (principal)
CPT/HCPCS: 36415; 85025

== ENCOUNTER → 2024-01-19 | Outpatient (CLI) | payer OTHER, SELFPAY ==
[2024-01-19 11:08] LABS: Vitamin D,25 Hydroxy 80.5 ng/mL
[2024-01-19 11:14] LABS: Cholesterol 185 mg/dL (200); High Density Lipoprotein 78 mg/dL; Triglycerides 72 mg/dL; Very Low Density Lipoprotein 14 mg/dL (5-40)
== END | disposition home or self-care (01) ==
PROVIDERS: PCP Physician Assistant; Referring Provider Physician Assistant; Visit Provider Physician Assistant
DX: Z13.220 Encounter for screening for lipoid disorders (principal); E55.9 Vitamin D deficiency, unspecified
CPT/HCPCS: 36415; 80061; 82306

== ENCOUNTER → 2024-03-08 | Outpatient (CLI) | payer OTHER, SELFPAY ==
[2024-03-08 06:43] LABS: Absolute Lymphocyte Count 1.79 X10^3/uL (0.83-4.51); Absolute Neutrophil Count 2.6 X10^3/uL (2.0-7.7); Basophil# 0.04 X10^3/uL; Basophil% 0.8 % (0-1); Eosinophil# 0.17 X10^3/uL; Eosinophils% 3.4 % (0-5); Hematocrit 38.6 % (37-47); Hemoglobin 12.1 g/dL (12.0-15.0); Lymphocyte # 1.79 X10^3/ul (0.83-4.51); Lymphocyte % 35.5 % (19-41); Mean Corp Hgb Conc 31.3 g/dL (32-36); Mean Corpuscular Hgb 28.8 pg (27.0-32.0); Mean Corpuscular Volume 91.9 fL (81-99); Mean Platelet Vol. 11.4 fl (6.2-12.0); Monocyte% 7.9 % (0-10); NRBC Flagged by Analyzer 0 % (0-5); Neutrophil # 2.63 X10^3/uL (2.7-7.7); Neutrophil % 52.2 % (47-70); Platelet Count 222 K/mm3 (150-450); RBC Distribution Width CV 13.7 % (11.6-14.6); RBC Distribution Width SD 46.6 fl (35.1-43.9)
[2024-03-08 07:13] LABS: AST(SGOT) 13 U/L (15-37); Alanine Aminotransfer ALT/SGPT 17 U/L (13-56); Albumin, Serum 3.4 g/dL (3.2-5.0); Alkaline Phosphatase 61 U/L (45-117); Anion Gap 3 (5-15); BUN 12 mg/dL (7-18); BUN/Creat Ratio 16.2 RATIO (10-20); CRP 3.14 mg/L (0.0-3.0); Calcium,Total 8.9 mg/dL (8.5-10.1); Chloride 106 mmol/L (98-107); Creatinine, Serum 0.74 mg/dL (0.55-1.02); EST Glomerular Filtration Rate 89 mL/min (>60); Est Glom Filt Rate - Afr Amer 108 mL/min (>60); Globulin 3.5 g/dL (2.2-4.2); Glucose 89 mg/dL (74-106); Protein, Total 6.9 g/dL (6.4-8.2); Sodium Level 137 mmol/L (136-145)
[2024-03-08 07:23] LABS: Erythrocyte Sedimentation Rate 8 mm/hr (0-30)
== END | disposition home or self-care (01) ==
LOC: LAB 06:22
PROVIDERS: PCP Physician Assistant; Referring Provider Registered Nurse; Visit Provider Registered Nurse
DX: M05.79 Rheumatoid arthritis with rheumatoid factor of multiple sites without organ or systems involvement (principal)
CPT/HCPCS: 36415; 80053; 85025; 85652; 86140

== ENCOUNTER → 2024-03-18 | Outpatient (CLI) | payer OTHER, SELFPAY | END | disposition home or self-care (01) | PROVIDERS: PCP Physician Assistant; Visit Provider Specialist | DX: N95.1 Menopausal and female climacteric states (principal) | CPT/HCPCS: 36415 ==

== ENCOUNTER → 2024-03-29 | Outpatient (CLI) | payer OTHER, SELFPAY | END | disposition home or self-care (01) | LOC: LAB 05:47 | PROVIDERS: PCP Physician Assistant; Visit Provider Physician Assistant | DX: R53.83 Other fatigue (principal) | CPT/HCPCS: 36415; 82533 ==

== ENCOUNTER → 2024-04-15 | Outpatient (CLI) | payer OTHER, SELFPAY ==
--- NOTE | 2024-04-15 13:34 | RAD_ITS ---
INDICATION: COVID19 EXAMINATION/TECHNIQUE: X-RAY - XR Chest 2 Views COMPARISON: November 15, 2023 FINDINGS: LINES/DEVICES: None. LUNGS: No consolidation, edema or effusion. Possible right apical nodular opacity. Correlated with CT if needed. No pneumothorax. MEDIASTINUM AND CARDIOVASCULAR STRUCTURES: Cardiac silhouette not enlarged. Central airways and mediastinal contour are unremarkable. BONES AND SOFT TISSUES: Unremarkable. RAD/Chest PA and Lateral IMPRESSION: Possible right apical nodular opacity. Correlated with CT if needed. Electronically Signed: Daljit Null DO at 17:49 EDT Reading Location ID and State: [facility] / [place] Tel [phone], Service support ,
== END | disposition home or self-care (01) ==
LOC: RAD 13:31
PROVIDERS: PCP Physician Assistant; Referring Provider Physician Assistant; Visit Provider Physician Assistant
DX: U07.1 COVID-19 (principal)
CPT/HCPCS: 71046

== ENCOUNTER → 2024-04-26 | Outpatient (CLI) | payer OTHER, SELFPAY ==
--- NOTE | 2024-04-26 13:10 | CT_ITS ---
INDICATION: ABNORMAL CXR EXAMINATION: CT CHEST WITHOUT CONTRAST - CT Chest W/O Contrast Injection TECHNIQUE: Helically acquired images were obtained of the chest. The protocol utilizes one or more of the following dose reduction techniques: automated exposure control, adjustment of mA and/or kV according to patient size,and/or use of iterative reconstruction technique. IV Contrast dosage and agent: None. RADIATION DOSAGE (If Supplied By Facility): CTDIvol = ( 7.20 ) mGy, DLP = ( 268.12 ) mGycm COMPARISON: Chest x-ray of 04/15/2024 FINDINGS: LUNGS, PLEURA AND LARGE AIRWAYS: Bilateral apical pleural fibrotic changes and subpleural nodular densities. 4 mm right upper lobe nodule on image 26 series 4. 4 mm subpleural nodule on image 30 series 4 in the right upper lobe. The lungs are otherwise clear. No focal infiltrate. No pleural effusion or thickening. No pneumothorax. THYROID: No thyroid lesions. HEART AND PERICARDIUM: Heart size is normal. No pericardial effusion. CORONARY ARTERIES: Coronary artery calcification is not seen. VESSELS: Thoracic aorta is not dilated. MEDIASTINUM AND BILLY: No mediastinal or hilar adenopathy. Esophagus is unremarkable. No hiatal hernia. UPPER ABDOMEN: No acute pathology. BONES: No suspicious lytic or blastic abnormality. CT/Chest without Contrast IMPRESSION: 1. 4 mm right upper lobe nodules for which no further follow-up exam is needed other than routine annual screening. 2. Otherwise no mass, adenopathy or focal acute pulmonary infiltrate. Electronically Signed: Thierno Minor MD at 14:35 EDT ,
== END | disposition home or self-care (01) ==
LOC: CT 12:59
PROVIDERS: PCP Physician Assistant; Referring Provider Family Medicine; Visit Provider Family Medicine
DX: R91.8 Other nonspecific abnormal finding of lung field (principal)
CPT/HCPCS: 71250

== ENCOUNTER → 2024-05-09 | Outpatient (CLI) | payer OTHER, SELFPAY ==
[2024-05-09 08:44] LABS: Vitamin B12 294 pg/mL (211-911); Vitamin D,25 Hydroxy 69.2 ng/mL
[2024-05-09 09:15] LABS: Estradiol 68.1 pg/mL
[2024-05-10 12:00] LABS: PROGESTERONE 3.3 ng/mL (.)
== END | disposition home or self-care (01) ==
LOC: LAB 07:03
PROVIDERS: PCP Physician Assistant; Visit Provider Nurse Practitioner Family
DX: E55.9 Vitamin D deficiency, unspecified (principal); R53.83 Other fatigue; N95.1 Menopausal and female climacteric states
CPT/HCPCS: 36415; 82306; 82607; 82670; 84144; 84403

== ENCOUNTER → 2024-06-03 | Outpatient (CLI) | payer OTHER, SELFPAY ==
[2024-06-03 16:10] LABS: Mucous, Urine 0 SEEN /hpf (<or=2+)
[2024-06-03 16:31] LABS: Color, Urine Yellow (Yellow); Glucose, Dipstick Normal (Normal); Ketone-Dipstick Negative (Negative); Leukocyte Esterase-Dipstick 100 /ul (Negative); Nitrite-Dipstick Negative (Negative); Occult Blood-Urine 50 /ul (Negative); Protein-Dipstick 15 mg/dl (Negative); Specific Gravity, Urine 1.025 (1.002-1.030); Urine Bilirubin Dipstick Negative (Negative); Urine Clarity Sl. Cloudy (Clear); Urine Urobilinogen Normal (Normal)
[2024-06-03 16:46] LABS: Red Blood Cells-Urine 5-10 SEEN /hpf (0-5)
[2024-06-03 16:47] LABS: Bacteria 3+ /hpf (None Seen); Renal Epithelial Cells 0-5 SEEN /hpf (0-5); Squamous Epithelial Cells - UA 25-50 SEEN /hpf (5-10); White Blood Cells 10-25 SEEN /hpf (0-5)
[2024-06-03 16:48] LABS: Transitional Epithelial - Ur 0-5 SEEN /hpf (0-5)
== END | disposition home or self-care (01) ==
LOC: LABSPEC 15:26
PROVIDERS: PCP Physician Assistant; Referring Provider Physician Assistant Surgical; Visit Provider Physician Assistant Surgical
DX: R30.0 Dysuria (principal)
CPT/HCPCS: 81001; 87086

== ENCOUNTER → 2024-06-06 | Outpatient (CLI) | payer OTHER, SELFPAY ==
[2024-06-09 08:12] LABS: Chlamydia By Nucleic Acid AMP Negative (Negative); Gonococcus By Nucleic Acid AMP Negative (Negative)
[2024-06-10 21:07] LABS: HPV APTIMA, High Risk Positive (Negative); HPV Genotype 16, Aptima Negative (Negative); HPV Genotype 18,45 Aptima Negative (Negative)
== END | disposition home or self-care (01) ==
LOC: LABSPEC 17:23
PROVIDERS: PCP Physician Assistant; Visit Provider Obstetrics & Gynecology
DX: Z12.4 Encounter for screening for malignant neoplasm of cervix (principal); Z11.3 Encounter for screening for infections with a predominantly sexual mode of transmission; Z90.710 Acquired absence of both cervix and uterus
CPT/HCPCS: 87491; 87591; 87624; 88175; G0145

== ENCOUNTER → 2024-06-07 | Outpatient (CLI) | payer OTHER, SELFPAY ==
[2024-06-07 07:56] LABS: Absolute Lymphocyte Count 1.29 X10^3/uL (0.83-4.51); Absolute Neutrophil Count 3.7 X10^3/uL (2.0-7.7); Basophil# 0.04 X10^3/uL; Basophil% 0.7 % (0-1); Eosinophils% 1.8 % (0-5); Hematocrit 39.8 % (37-47); Hemoglobin 12.3 g/dL (12.0-15.0); Lymphocyte # 1.29 X10^3/ul (0.83-4.51); Lymphocyte % 23.3 % (19-41); Mean Corp Hgb Conc 30.9 g/dL (32-36); Mean Corpuscular Hgb 28.7 pg (27.0-32.0); Mean Corpuscular Volume 92.8 fL (81-99); Mean Platelet Vol. 11.6 fl (6.2-12.0); Monocyte# 0.43 X10^3/uL; Monocyte% 7.8 % (0-10); NRBC Flagged by Analyzer 0 % (0-5); Neutrophil # 3.66 X10^3/uL (2.7-7.7); Neutrophil % 66.2 % (47-70); Platelet Count 206 K/mm3 (150-450); RBC Distribution Width CV 14.2 % (11.6-14.6); Red Blood Count 4.29 M/mm3 (4.2-5.4); White Blood Count 5.5 K/mm3 (4.4-11.0)
[2024-06-07 08:17] LABS: Erythrocyte Sedimentation Rate 9 mm/hr (0-30)
[2024-06-07 08:34] LABS: AST(SGOT) 8 U/L (15-37); Alanine Aminotransfer ALT/SGPT 13 U/L (13-56); Albumin, Serum 3.3 g/dL (3.2-5.0); Alkaline Phosphatase 60 U/L (45-117); Anion Gap 6 (5-15); BUN 15 mg/dL (7-18); BUN/Creat Ratio 16.7 RATIO (10-20); CRP < 2.90 mg/L (0.0-3.0); Calcium,Total 8.9 mg/dL (8.5-10.1); Chloride 108 mmol/L (98-107); EST Glomerular Filtration Rate 71 mL/min (>60); Est Glom Filt Rate - Afr Amer 86 mL/min (>60); Globulin 3.3 g/dL (2.2-4.2); Glucose 98 mg/dL (74-106); Potassium 3.7 mmol/L (3.5-5.1); Protein, Total 6.6 g/dL (6.4-8.2); Sodium Level 140 mmol/L (136-145)
[2024-06-07 10:11] LABS: HIV - WCH Non-Reactive (Nonreactive); Hepatitis B Surface Antigen Non-Reactive (Nonreactive); Hepatitis C Antibody Non-Reactive (Nonreactive); Syphilis Antibodies Non-reactive
[2024-06-08 09:09] LABS: HSV 2 IgG < 0.91 index (0.00-0.90)
== END | disposition home or self-care (01) ==
LOC: LAB 07:43
PROVIDERS: Obstetrics & Gynecology; PCP Physician Assistant; Visit Provider Registered Nurse
DX: M05.79 Rheumatoid arthritis with rheumatoid factor of multiple sites without organ or systems involvement (principal); Z11.3 Encounter for screening for infections with a predominantly sexual mode of transmission; Z20.828 Contact with and (suspected) exposure to other viral communicable diseases
CPT/HCPCS: 36415; 80053; 85025; 85652; 86140; 86695; 86696; 86703; 86780; 86803; 87340

== ENCOUNTER → 2024-06-21 | Outpatient (CLI) | payer OTHER, SELFPAY ==
[2024-06-21 13:49] LABS: Estradiol 83.4 pg/mL
== END | disposition home or self-care (01) ==
LOC: LAB 09:11
PROVIDERS: PCP Physician Assistant; Visit Provider Specialist
DX: N95.1 Menopausal and female climacteric states (principal)
CPT/HCPCS: 36415; 82670; 84144; 84403

== ENCOUNTER → 2024-06-21 | Outpatient (CLI) | payer OTHER, SELFPAY | END | disposition home or self-care (01) | LOC: LAB.FUTURE 05:13 → LAB 11:00 | PROVIDERS: PCP Physician Assistant; Visit Provider Internal Medicine Gastroenterology | DX: K50.90 Crohn's disease, unspecified, without complications (principal) | CPT/HCPCS: 36415; 82533 ==

== ENCOUNTER → 2024-07-12 | Outpatient (CLI) | payer OTHER, SELFPAY ==
[2024-07-13 15:09] LABS: ANTINUCLEAR ANTIBODIES DIRECT Negative (Negative)
[2024-07-19 13:08] LABS: Anti-Cardiolipin Ab, IgA, Qn < 9 APL U/mL (0-11); Anti-Cardiolipin Ab, IgG, Qn < 9 GPL U/mL (0-14); Anti-Cardiolipin Ab, IgM, Qn 9 MPL U/mL (0-12); Anti-Thrombin 3 AG, Immunol 88 % (72-124); Antithrombin 3 Function 139 % (75-135); Complement C3 138 mg/dL (82-167); Complement CH50 51 U/mL (>41); Dilute Prothrombin Time (dPT) 43.7 sec (0.0-47.6); Dilute Russell Viper Venom 36.1 sec (0.0-47.0); Interpretation Comment: (.); PTT-LA 40.2 sec (0.0-43.5); Protein C Antigen 151 % (60-150); Protein C, Functional 157 % (73-180); Protein S, Free 113 % (61-136); Protein S, Funtional 94 % (63-140); Protein S, Total 86 % (60-150); Thrombin Time 18.3 sec (0.0-23.0); dPT Confirm Ratio 1.06 Ratio (0.00-1.34)
== END | disposition home or self-care (01) ==
LOC: LAB 08:16
PROVIDERS: PCP Physician Assistant; Visit Provider Psychiatry & Neurology Neurology
DX: G45.9 Transient cerebral ischemic attack, unspecified (principal)
CPT/HCPCS: 36415; 81240; 81241; 85300; 85301; 85302; 85303; 85305; 85306; 86038; 86147; 86160; 86162; 86225; 86235

== ENCOUNTER → 2024-07-13 | Outpatient (CLI) | payer OTHER, SELFPAY ==
[2024-07-13 07:41] LABS: ALB/GLOB Ratio 1.1 RATIO (0.9-2.4); AST(SGOT) 10 U/L (15-37); Alanine Aminotransfer ALT/SGPT 15 U/L (13-56); Albumin, Serum 3.5 g/dL (3.2-5.0); Alkaline Phosphatase 49 U/L (45-117); Anion Gap 4 (5-15); BUN 10 mg/dL (7-18); BUN/Creat Ratio 13.5 RATIO (10-20); Calcium,Total 9.2 mg/dL (8.5-10.1); Chloride 109 mmol/L (98-107); Creatinine, Serum 0.74 mg/dL (0.55-1.02); EST Glomerular Filtration Rate 89 mL/min (>60); Est Glom Filt Rate - Afr Amer 108 mL/min (>60); Globulin 3.3 g/dL (2.2-4.2); Glucose 94 mg/dL (74-106); Potassium 3.7 mmol/L (3.5-5.1); Protein, Total 6.8 g/dL (6.4-8.2); Sodium Level 141 mmol/L (136-145)
== END | disposition home or self-care (01) ==
LOC: LAB 06:54
PROVIDERS: PCP Physician Assistant; Visit Provider Registered Nurse
DX: M05.79 Rheumatoid arthritis with rheumatoid factor of multiple sites without organ or systems involvement (principal)
CPT/HCPCS: 36415; 80053

== ENCOUNTER → 2024-07-15 | Outpatient (CLI) | payer OTHER, SELFPAY | END | disposition home or self-care (01) | PROVIDERS: PCP Physician Assistant; Referring Provider Physician Assistant; Visit Provider Physician Assistant | DX: R74.8 Abnormal levels of other serum enzymes (principal) ==

== ENCOUNTER 2024-07-18 09:02 | Emergency (ER) | payer OTHER, SELFPAY ==
[2024-07-18 09:05] VITALS: BP 139/92; PULSE 79; RESP 16; TEMP 36.7; O2SAT 99; BMI 26.3
--- NOTE | 2024-07-18 10:29 | EX.ED.VIS.EY ---
HPI History of Present Illness Chief Complaint: Eye Problem Informant: patient Onset/Context/Timing Location: Left Eye Onset: Today Context: Sudden Onset Timing: Continuous Worsened by: Nothing Relieved by: Nothing Associated Symptoms Visual Changes: left: Cloudy vision and Visual field cut History of injury: No Visual correction: Glasses Narrative Narrative: Patient presents with loss of vision to her left peripheral field that began rather suddenly today. Patient states she was at work and her left side of her vision was lost. Patient states that if she closed her left eye her vision was normal. Patient states that when she closed her right eye, she had difficulty seeing out of her left eye. Patient states it was very cloudy. Patient states she tried to read a sign and can only see the right half of the sign. Patient states she has had similar episodes in the past. Patient states she has been seen by neurology for this. Patient states she was diagnosed with ocular migraines. Patient also admits to some tingling in her left hand that began after her vision started to improve. Patient states her tingling has now resolved. Patient denies any weakness. [facility] Medical History Crohn's disease Hypertension Non-smoker Genetic testing of female Leukopenia Vitamin A deficiency Fatigue GERD (gastroesophageal reflux disease) Rash Anemia Back pain TIA (transient ischemic attack) Hair loss Rib injury Instability of left patellofemoral joint Stiffness of left knee Left knee pain Wears glasses Post-menopausal Anxiety Arthritis Rheumatoid arthritis Migraine headache History of hiatal hernia Gastric reflux History of echocardiogram History of stress test Cardiology follow-up encounter Iron deficiency COVID-19 virus detected (10/01/20) Inflammatory polyarthritis Fibromyalgia Herpes labialis Patent foramen ovale Hyperlipidemia History of TIA (transient ischemic attack) (11/25/20) Vision changes Anxiety IBS (irritable bowel syndrome) Home Medications ?Medication ?Instructions ?Recorded ?Last Taken ?Type acyclovir 400 mg tablet 400 mg PO DAILY PRN cold sore 04/07/16 08/15/17 History loperamide 2 mg capsule 4 mg PO DAILY diarrhea 04/07/16 08/15/17 History leflunomide 10 mg tablet 10 mg PO DAILY RA 11/25/20 Unknown History gabapentin 300 mg capsule 300 mg PO QHS PRN pain, mild 06/05/23 Unknown History ondansetron 4 mg disintegrating 4 mg PO Q8H PRN PRN Nausea #14 tabs 09/03/23 Unknown Rx tablet bio-identical hormone pellets See Rx Instructions .Route .COMPLEX 11/15/23 Unknown History cetirizine 10 mg tablet 10 mg PO DAILY allergy 11/15/23 Unknown History cholecalciferol (vitamin D3) 125 125 mcg PO DAILY 11/15/23 Unknown History mcg (5,000 unit) tablet gelatin capsules (empty) (Capsule 1 cap PO QHS estogen 11/15/23 Unknown History #0 capsule) pantoprazole 40 mg tablet,delayed 40 mg PO BID #60 TABLETS 01/22/24 Unknown Rx release diphenoxylate-atropine 2.5 1 tab PO BID PRN diarrhea #20 tabs 02/13/24 Unknown Rx mg-0.025 mg tablet (Lomotil) aspirin 81 mg tablet,delayed 81 mg PO DAILY #90 tabs 02/29/24 Unknown Rx release (Adult Aspirin Regimen) fluconazole 150 mg tablet 150 mg PO Q3D 2 doses #2 tabs 06/03/24 Unknown Rx phenazopyridine 200 mg tablet 200 mg PO TID PRN pain 6 doses #7 06/03/24 Unknown Rx (Pyridium) tabs alprazolam 0.5 mg tablet 0.5 mg PO DAILY anxiety 06/06/24 Unknown History budesonide 3 mg 3 mg PO DAILY bowel 07/11/24 Unknown History capsule,delayed,extended release prednisone 20 mg tablet 40 mg (2 x 20 mg) PO QDAY 7 days 07/13/24 Unknown Rx #14 tabs Allergy/AdvReac Type Severity Reaction Status Date / Time morphine Allergy Other Verified 07/18/24 09:04 bacitracin (From Neosporin AdvReac Rash Verified 07/18/24 09:04 ([id number])) metoclopramide (From Reglan) AdvReac Other Verified 07/18/24 09:04 metronidazole (From Flagyl) AdvReac Nausea Verified 07/18/24 09:04 neomycin (From Neosporin AdvReac Rash Verified 07/18/24 09:04 ([id number])) polymyxin B (From Neosporin AdvReac Rash Verified 07/18/24 09:04 ([id number])) sucralfate (From Carafate) AdvReac Nausea Verified 07/18/24 09:04 Family History Grandmother Uterine cancer Uncle Lung cancer Grandmother No problems noted. Grandfather Prostate cancer Sister Migraine Surgical History H/O LEEP History of right salpingo-oophorectomy Hx of foot surgery History of tonsillectomy History of cholecystectomy History of hysterectomy Social History household members: family housing: house current occupational status: employed current occupation: [employer] current occupational exposures/hazards: No pets and animals: No sexually active: Yes Smoking Status: Never smoker alcohol intake: never substance use type: does not use caffeine: Yes seatbelt use: always ROS ROS ED Constitutional Constitutional ED: Denies chills or fever(s) Eyes Eyes: Reports change in vision left; Denies diplopia ENT ENT ED: Denies rhinorrhea or sore throat Cardiovascular Cardiovascular: Denies chest pain or palpitations Respiratory/Chest Respiratory/Chest: Denies cough or dyspnea Gastrointestinal Gastrointestinal: Denies nausea or vomiting Genitourinary Genitourinary ED: Denies dysuria or hematuria Musculoskeletal Musculoskeletal: Denies back pain or neck pain Integumentary Denies abscess or rash Neurologic Neurologic: Reports paresthesias LUE (Left hand); Denies headache(s) or weakness Allergic/Immunologic Allergic/Immunologic ED: Denies mouth swelling or urticaria EXAM Physical Exam Const Vital Signs: 07/18/24 09:05 Temperature 98.1 F Temperature Source Oral Pulse Rate 79 Respiratory Rate 16 Blood Pressure 139/92 H Blood Pressure Mean 107 Pulse Ox 99 Oxygen Delivery Method Room Air Positive well nourished and well developed General Appearance ED: well developed and NAD Eyes Eyes Narrative: Pupils are equal, round, and reactive to light bilaterally. Extraocular muscles are intact. Funduscopic examination was benign. Neck supple and no JVD Resp normal respiratory effort and clear to auscultation bilaterally Cardio regular rate and regular rhythm GI non-tender and non-distended Palpation: soft Neuro oriented x3, CN's II-XII intact bilaterally, moves all extremities and no sensory deficits noted Sensorium / Orientation: alert Motor Exam: strength 5/5 throughout MDM MDM MDM Narrative Medical decision making narrative: Differential diagnosis includes migraine headache, TIA, retinal tear, intracranial bleeding, stroke, hypertensive urgency, and multiple sclerosis. CT scan of the brain will be obtained to assess for intracranial bleeding. CBC will be obtained to assess for leukocytosis or anemia. Basic metabolic profile will be obtained to assess for electrolyte abnormality and renal function. PT with INR and PTT will be obtained to assess for coagulopathy. Lab Data Attestation: I reviewed the patient's lab results. Lab results narrative: CBC was reviewed and was within normal limits. Basic metabolic profile was reviewed and was within normal limits. PT with INR and PTT were reviewed and were within normal limits. Radiography Diagnostic Testing: CT scan of the brain was obtained. There is no acute intracranial abnormality. This was interpreted by the radiologist and was also independently reviewed by myself. Treatment and Re-Evaluation Narrative: On reevaluation, patient was complaining of right-sided headache. Patient requested an injection of Toradol. This was ordered. Patient was instructed to rest in a dark quiet room. Patient was advised that this is most likely an ocular migraine. The patient was instructed to follow-up with her neurologist in 5 to 7 days. Patient was instructed return if worse in any way. Patient understood and was agreeable with the plan. All questions were answered. Discharge Plan Triage Chief Complaint: Eye Problem ED Provider: Ben Leija Dx/Rx/DC Orders Clinical Impression: Ocular migraine, Headache Instructions: ED, Migraine (Classical) Prescriptions: No Action budesonide 3 mg capsule,delayed,extend.release 3 mg PO DAILY phenazopyridine [Pyridium] 200 mg tablet 200 mg PO TID PRN (Reason: pain) Qty: 7 0RF fluconazole 150 mg tablet 150 mg PO Q3D 0 Days Qty: 2 0RF Rx Instructions: may repeat second dose 72 hrs after first dose if symptoms persist loperamide 2 MG capsule 4 mg PO DAILY Patient Comments: diarrhea acyclovir 400 MG tablet 400 mg PO DAILY PRN (Reason: cold sore) Patient Comments: anti viral alprazolam 0.5 mg tablet 0.5 mg PO DAILY Patient Comments: anxiety leflunomide 10 MG tablet 10 mg PO DAILY ondansetron 4 mg tablet,disintegrating 4 mg PO Q8H PRN PRN (Reason: Nausea) Qty: 14 0RF cetirizine 10 mg tablet 10 mg PO DAILY cholecalciferol (vitamin D3) 125 mcg (5,000 unit) tablet 125 mcg PO DAILY bio-identical hormone pellets See Rx Instructions .ROUTE .COMPLEX Patient Comments: every 3-4 months gets one estrogen and one testosterone pellets under skin Rx Instructions: gets one estrogen and one testosterone pellet injucted q 3-4 months; Capsule #0 Capsule 1 cap PO QHS Patient Comments: Take one 100mgiprogesterone capsuleadaily at bedtime.i gabapentin 300 mg capsule 300 mg PO QHS PRN (Reason: pain, mild) pantoprazole 40 mg tablet,delayed release (DR/EC) 40 mg PO BID Qty: 60 2RF diphenoxylate-atropine [Lomotil] 2.5-0.025 mg tablet 1 tab PO BID PRN (Reason: diarrhea) Qty: 20 0RF aspirin [Adult Aspirin Regimen] 81 mg tablet,delayed release (DR/EC) 81 mg PO DAILY Qty: 90 3RF prednisone 20 mg tablet 40 mg PO QDAY 7 Days Qty: 14 0RF Stand Alone Forms: ED Work / School Excuse Primary Care Provider: Choco Beavers Referrals: Choco Beavers PA [Primary Care Provider] - 5-7 Days Print Language: Welsh Disposition Disposition: Home, Self Care
[2024-07-18 10:58] LABS: Absolute Lymphocyte Count 1.41 X10^3/uL (0.83-4.51); Basophil# 0.03 X10^3/uL; Basophil% 0.5 % (0-1); Eosinophil# 0.11 X10^3/uL; Eosinophils% 1.8 % (0-5); Hematocrit 39.4 % (37-47); Hemoglobin 12.2 g/dL (12.0-15.0); Lymphocyte # 1.41 X10^3/ul (0.83-4.51); Lymphocyte % 23.2 % (19-41); Mean Corpuscular Hgb 28.6 pg (27.0-32.0); Mean Corpuscular Volume 92.3 fL (81-99); Mean Platelet Vol. 12.2 fl (6.2-12.0); Monocyte# 0.54 X10^3/uL; Monocyte% 8.9 % (0-10); NRBC Flagged by Analyzer 0 % (0-5); Neutrophil # 3.98 X10^3/uL (2.7-7.7); Neutrophil % 65.4 % (47-70); Platelet Count 181 K/mm3 (150-450); RBC Distribution Width CV 13.4 % (11.6-14.6); RBC Distribution Width SD 45.7 fl (35.1-43.9); Red Blood Count 4.27 M/mm3 (4.2-5.4); White Blood Count 6.1 K/mm3 (4.4-11.0)
--- NOTE | 2024-07-18 11:00 | CT_ITS ---
STUDY: CT BRAIN WITHOUT CONTRAST REASON FOR EXAM: Female, 48 years old. Visual changes RADIATION DOSAGE (If Supplied By Facility): CTDIvol = ( 44.99 ) mGy, DLP = ( 762.36 ) mGycm TECHNIQUE: Transaxial CT imaging of the brain was performed without administration of intravenous contrast material. Individualized dose optimization techniques were used for this CT. COMPARISON: Comparison is made with prior study of November 15, 2023. FINDINGS: Normal soft tissue structures. Normal calvarium. Normal size ventricles and extra-axial spaces for the patient''s age. Normal white matter tracts of the cerebral hemispheres. Normal basal ganglia and thalami. Normal brainstem. Normal cerebellum. There is no intracranial hemorrhage. There are no findings of an acute ischemic infarction. Normal visualized paranasal sinuses. CT/Brain/Head without Contrast IMPRESSION: Normal unenhanced CT scan of the brain. Electronically Signed: Todd Espinosa MD at 11:12 EDT ,
[2024-07-18 11:04] VITALS: BP 139/91
[2024-07-18 11:12] LABS: Anion Gap 7 (5-15); BUN 9 mg/dL (7-18); BUN/Creat Ratio 12.4 RATIO (10-20); Calcium,Total 8.8 mg/dL (8.5-10.1); Chloride 107 mmol/L (98-107); Creatinine, Serum 0.73 mg/dL (0.55-1.02); EST Glomerular Filtration Rate 91 mL/min (>60); Est Glom Filt Rate - Afr Amer 110 mL/min (>60); Estimated Creatinine Clearance 97.99 ml/min; Glucose 89 mg/dL (74-106); Sodium Level 142 mmol/L (136-145)
[2024-07-18 11:25] LABS: Prothrombin Time (Protime)PT. 13.6 SECONDS (11.7-14.9)
[2024-07-18] MEDS: Ketorolac 30 MG/ML Syringe IV (12:19)
[2024-07-18 12:30] VITALS: BP 126/77; PULSE 74; RESP 18; TEMP 36.7; O2SAT 100
== END 2024-07-18 12:31 | disposition home or self-care (01) ==
PROVIDERS: Emergency Provider Emergency Medicine; PCP Physician Assistant; Visit Provider Emergency Medicine
DX: G43.909 Migraine, unspecified, not intractable, without status migrainosus (principal); I10 Essential (primary) hypertension; Z90.710 Acquired absence of both cervix and uterus; H54.7 Unspecified visual loss; E78.5 Hyperlipidemia, unspecified; Z90.49 Acquired absence of other specified parts of digestive tract; Z86.73 Personal history of transient ischemic attack (TIA), and cerebral infarction without residual deficits; Z86.16 Personal history of COVID-19; K21.9 Gastro-esophageal reflux disease without esophagitis; Z79.82 Long term (current) use of aspirin
CPT/HCPCS: 70450; 80048; 85025; 85610; 85730; 96374; 99284; A4216

== ENCOUNTER → 2024-08-17 | Outpatient (CLI) | payer OTHER, SELFPAY ==
--- NOTE | 2024-08-17 09:41 | CDU_ITS ---
Reason For Study: Transient vision loss Rt. Velocities/BP Lt. Velocities/BP Prox CCA 73/25.8 cm/sec. Prox CCA 97.1/35.5 cm/sec. Mid CCA 80.6/27.7 cm/sec. Mid CCA 99.2/38.8 cm/sec. Dist CCA 73/29.6 cm/sec. Dist CCA 88.3/37.7 cm/sec. Prox ICA 71.1/31.5 cm/sec. Prox ICA 93.8/38.8 cm/sec. Mid ICA 99.2/45.4 cm/sec. Mid ICA 98.6/40.9 cm/sec. Dist ICA 86.1/37.7 cm/sec. Dist ICA 90/43.3 cm/sec. Rt. ICA/CCA = 1.23. Lt. ICA/CCA = 0.99. Prox ECA 92.9/20.1 cm/sec. Prox ECA 80.6/21.2 cm/sec. Rt. Vert. 63/24.5 cm/sec. Lt. Vert. 48.7/20.1 cm/sec. Right Extracranial There is intimal thickening but no significant atherosclerotic plaque noted in the right common carotid artery. There is intimal thickening but no significant atherosclerotic plaque noted in the right internal carotid artery. There is intimal thickening but no significant atherosclerotic plaque noted in the right external carotid artery. Antegrade flow is noted in the right vertebral artery. Left Extracranial There is intimal thickening but no significant atherosclerotic plaque noted in the left common carotid artery. There is intimal thickening but no significant atherosclerotic plaque noted in the left internal carotid artery. There is intimal thickening but no significant atherosclerotic plaque noted in the left external carotid artery. Antegrade flow is noted in the left vertebral artery. Procedure Carotid Duplex [id number]. This is a Carotid Duplex examination using B-mode, color flow and specral Doppler. Exam performed in department. VL/Carotid Duplex Ultrasound Interpretation Summary Normal right extracranial internal carotid. Normal left extracranial internal carotid. Patent and antegrade vertebrals bilaterally. Ordering Physician: Ronni Cameron Referring Physician: Choco Beavers Performed By: Michaela Nice RVT
== END | disposition home or self-care (01) ==
LOC: CVS 09:41
PROVIDERS: PCP Physician Assistant; Referring Provider Psychiatry & Neurology Neurology; Visit Provider Psychiatry & Neurology Neurology
DX: H54.7 Unspecified visual loss (principal)
CPT/HCPCS: 93880

== ENCOUNTER → 2024-09-13 | Outpatient (CLI) | payer OTHER, SELFPAY ==
[2024-09-13 07:37] LABS: Absolute Lymphocyte Count 1.47 X10^3/uL (0.83-4.51); Absolute Neutrophil Count 3.8 X10^3/uL (2.0-7.7); Basophil# 0.03 X10^3/uL; Basophil% 0.5 % (0-1); Eosinophil# 0.15 X10^3/uL; Eosinophils% 2.5 % (0-5); Hematocrit 41.3 % (37-47); Hemoglobin 13.2 g/dL (12.0-15.0); Lymphocyte # 1.47 X10^3/ul (0.83-4.51); Lymphocyte % 24.5 % (19-41); Mean Corpuscular Hgb 28.9 pg (27.0-32.0); Mean Corpuscular Volume 90.4 fL (81-99); Mean Platelet Vol. 11.9 fl (6.2-12.0); Monocyte# 0.56 X10^3/uL; Monocyte% 9.3 % (0-10); NRBC Flagged by Analyzer 0 % (0-5); Neutrophil # 3.77 X10^3/uL (2.7-7.7); Neutrophil % 62.7 % (47-70); Platelet Count 255 K/mm3 (150-450); RBC Distribution Width CV 13.7 % (11.6-14.6); RBC Distribution Width SD 45.1 fl (35.1-43.9); Red Blood Count 4.57 M/mm3 (4.2-5.4)
[2024-09-13 08:09] LABS: Erythrocyte Sedimentation Rate 7 mm/hr (0-30)
[2024-09-13 08:31] LABS: AST(SGOT) 19 U/L (15-37); Alanine Aminotransfer ALT/SGPT 17 U/L (13-56); Albumin, Serum 3.6 g/dL (3.2-5.0); Alkaline Phosphatase 60 U/L (45-117); Anion Gap 6 (5-15); BUN 9 mg/dL (7-18); BUN/Creat Ratio 11.2 RATIO (10-20); CRP < 2.90 mg/L (0.0-3.0); Calcium,Total 9.1 mg/dL (8.5-10.1); Chloride 106 mmol/L (98-107); Creatinine, Serum 0.81 mg/dL (0.55-1.02); EST Glomerular Filtration Rate 81 mL/min (>60); Est Glom Filt Rate - Afr Amer 98 mL/min (>60); Globulin 3.7 g/dL (2.2-4.2); Glucose 97 mg/dL (74-106); Protein, Total 7.3 g/dL (6.4-8.2); Sodium Level 138 mmol/L (136-145)
[2024-09-14 04:07] LABS: PROGESTERONE 2.4 ng/mL (.)
== END | disposition home or self-care (01) ==
LOC: LAB 06:21
PROVIDERS: Registered Nurse; PCP Physician Assistant; Visit Provider Specialist
DX: N95.1 Menopausal and female climacteric states (principal); M05.79 Rheumatoid arthritis with rheumatoid factor of multiple sites without organ or systems involvement
CPT/HCPCS: 80053; 82670; 84144; 84403; 85025; 85652; 86140

== ENCOUNTER → 2024-10-10 | Outpatient (CLI) | payer OTHER, SELFPAY ==
[2024-10-19 20:07] LABS: Dopamine, 24Ur 264 ug/24 hr (0-510); Dopamine, UR 264 ug/L (Undefined); Epinephrine, 24Ur < 3 ug/24 hr (0-20); Epinephrine, Ur < 3 ug/L (Undefined); Norepinephrine, 24Ur 18 ug/24 hr (0-135); Norepinephrine, Ur 18 ug/L (Undefined); VMA, 24UR 2.4 mg/24 hr (0.0-7.5); VMA, UR 2.4 mg/L (Undefined)
== END | disposition home or self-care (01) ==
PROVIDERS: PCP Physician Assistant; Referring Provider Internal Medicine Gastroenterology; Visit Provider Internal Medicine Gastroenterology
DX: K29.70 Gastritis, unspecified, without bleeding (principal)

== ENCOUNTER → 2024-10-19 | Outpatient (CLI) | payer OTHER, SELFPAY ==
--- NOTE | 2024-10-19 09:02 | US_ITS ---
STUDY: ABDOMINAL ULTRASOUND - RIGHT UPPER QUADRANT; ELASTOGRAPHY REASON FOR VISIT: Female, 48 years old. Fatty infiltration of the liver. TECHNIQUE: Ultrasound evaluation of the right upper quadrant was performed with real-time and static lucas-scale imaging. Point quantification shear wave elastography was performed ([employer]). TECHNICAL QUALITY: Adequate. COMPARISON: Comparison is made with prior study dated September 03, 2023. FINDINGS: Liver: The liver measures 14.5 cm. There is increased echogenicity consistent with fatty infiltration. The bile ducts are within normal limits. There is hepatic color flow. The direction of portal flow is hepatopetal. There is no demonstrated mass lesion. Median liver stiffness measured 3.4 kPa. Gallbladder: The patient is status post cholecystectomy. Common Bile Duct (C.B.D.): The common bile duct measures 3 mm. Pancreas: There is normal echogenicity of the visualized pancreas. There is no demonstrated pancreatic mass or cyst. Right Kidney: Normal size of the right kidney. The right kidney measures 10.7 cm x 5.6 x 3.8 cm. Normal renal cortex. The right cortex measures 1.2 cm. There is a 0.9 cm x 1 cm x 0.9 cm cyst in the upper pole. 4 mm nonobstructive calculus. There is no right hydronephrosis. US/ABD Complete w/ Elastography IMPRESSION: 1. Liver stiffness measures 3.4 kPa compatible with FO (Normal) Metavir score. Electronically Signed: Todd Espinosa MD at 12:20 EST ,
== END | disposition home or self-care (01) ==
LOC: US 09:00
PROVIDERS: PCP Physician Assistant; Referring Provider Internal Medicine Gastroenterology; Visit Provider Internal Medicine Gastroenterology
DX: K76.0 Fatty (change of) liver, not elsewhere classified (principal)
CPT/HCPCS: 76700; 76981

== ENCOUNTER → 2024-10-24 | Outpatient (CLI) | payer OTHER, SELFPAY ==
[2024-10-24 11:09] LABS: Color, Urine Yellow (Yellow); Glucose, Dipstick Normal (Normal); Ketone-Dipstick Negative (Negative); Leukocyte Esterase-Dipstick 25 /ul (Negative); Nitrite-Dipstick Negative (Negative); Occult Blood-Urine Negative /ul (Negative); Protein-Dipstick 15 mg/dl (Negative); Urine Bilirubin Dipstick Negative (Negative); Urine Clarity Clear (Clear); Urine Urobilinogen Normal (Normal)
== END | disposition home or self-care (01) ==
LOC: LABSPEC 10:55
PROVIDERS: PCP Physician Assistant; Visit Provider Urology
DX: Z87.440 Personal history of urinary (tract) infections (principal)
CPT/HCPCS: 81002; 87086; 87088

== ENCOUNTER 2024-11-16 19:25 | Emergency (ER) | payer OTHER, SELFPAY ==
[2024-11-16 19:26] VITALS: BP 130/94; PULSE 119; RESP 20; TEMP 36.3; O2SAT 98; BMI 24.3
[2024-11-16 21:10] LABS: Absolute Lymphocyte Count 0.17 X10^3/uL (0.83-4.51); Absolute Neutrophil Count 5.5 X10^3/uL (2.0-7.7); Basophil# 0.03 X10^3/uL; Basophil% 0.5 % (0-1); Hematocrit 45.4 % (37-47); Hemoglobin 14.5 g/dL (12.0-15.0); Lymphocyte # 0.17 X10^3/ul (0.83-4.51); Lymphocyte % 2.9 % (19-41); Mean Corp Hgb Conc 31.9 g/dL (32-36); Mean Corpuscular Hgb 28.2 pg (27.0-32.0); Mean Corpuscular Volume 88.3 fL (81-99); Mean Platelet Vol. 11.8 fl (6.2-12.0); Monocyte% 3.4 % (0-10); NRBC Flagged by Analyzer 0 % (0-5); Neutrophil # 5.46 X10^3/uL (2.7-7.7); POSITIVE DIFFERENTIAL YES; Platelet Count 223 K/mm3 (150-450); RBC Distribution Width CV 14.3 % (11.6-14.6); RBC Distribution Width SD 46.1 fl (35.1-43.9); Red Blood Count 5.14 M/mm3 (4.2-5.4); White Blood Count 5.9 K/mm3 (4.4-11.0)
[2024-11-16 21:22] LABS: Internal QC Validated? YES +Cl - CLEAR BKGD; Pregnancy, Serum, hCG Quali. NEGATIVE Negative
[2024-11-16 21:29] LABS: ALB/GLOB Ratio 0.9 RATIO (0.9-2.4); AST(SGOT) 15 U/L (15-37); Alanine Aminotransfer ALT/SGPT 19 U/L (13-56); Albumin, Serum 3.6 g/dL (3.2-5.0); Alkaline Phosphatase 68 U/L (45-117); Anion Gap 9 (5-15); BUN 18 mg/dL (7-18); BUN/Creat Ratio 26.3 RATIO (10-20); Calcium,Total 8.9 mg/dL (8.5-10.1); Chloride 108 mmol/L (98-107); Creatinine, Serum 0.68 mg/dL (0.55-1.02); EST Glomerular Filtration Rate 97 mL/min (>60); Est Glom Filt Rate - Afr Amer 118 mL/min (>60); Estimated Creatinine Clearance 94.72 ml/min; Globulin 3.9 g/dL (2.2-4.2); Glucose 180 mg/dL (74-106); Potassium 3.5 mmol/L (3.5-5.1); Protein, Total 7.5 g/dL (6.4-8.2); Sodium Level 141 mmol/L (136-145)
[2024-11-16 23:21] VITALS: BP 120/95; PULSE 88; RESP 18; O2SAT 99
[2024-11-16 23:25] VITALS: BP 125/90; PULSE 88; RESP 18; TEMP 36.6; O2SAT 99
[2024-11-16] MEDS: proCHLORPERazine 10 MG/2 ML Vial IV (23:26)
[2024-11-16] MEDS: HYDROmorphone 1 MG/ML Syringe IV (23:26)
[2024-11-16] MEDS: 0.9% Normal Saline (1000mL) 1,000 ML 999 ML IV (23:27)
[2024-11-16 23:33] LABS: Mucous, Urine 0 SEEN /hpf (<or=2+)
[2024-11-16 23:41] LABS: Color, Urine Yellow (Yellow); Glucose, Dipstick Normal (Normal); Leukocyte Esterase-Dipstick 25 /ul (Negative); Nitrite-Dipstick Positive (Negative); Occult Blood-Urine Negative /ul (Negative); Protein-Dipstick 30 mg/dl (Negative); Urine Bilirubin Dipstick 3 mg/dL (Negative); Urine Clarity Clear (Clear); Urine Urobilinogen Normal (Normal)
[2024-11-16 23:42] LABS: Ketone-Dipstick 150 mg/dl (Negative)
[2024-11-16 23:48] LABS: Lipase 20 U/L (73-393)
[2024-11-16 23:49] LABS: Bacteria 3+ /hpf (None Seen); Red Blood Cells-Urine 0 SEEN /hpf (0-5); Squamous Epithelial Cells - UA 0-5 SEEN /hpf (5-10); Transitional Epithelial - Ur 0-5 SEEN /hpf (0-5); White Blood Cells 0-5 SEEN /hpf (0-5)
[2024-11-17] MEDS: 0.9% Normal Saline (1000mL) 1,000 ML 999 ML IV (00:16)
--- NOTE | 2024-11-17 00:37 | EX.ED.DYSGE1 ---
HPI History of Present Illness Chief Complaint: Nausea/Vomiting Informant: patient Narrative Narrative: Patient is a 49-year-old female with past medical history of hypertension hyperlipidemia Crohn's disease and IBS. She states she is on budesonide for her Crohn's disease and follows with gastroenterology. She reports today around 11am her stomach just felt off and she then began with bouts of nausea and vomiting. She states that despite taking her home Zofran her symptoms have persisted and she believes she has thrown up over 20 times. She denies any blood or discoloration to the emesis. She states she has not had a bowel obstruction with her history of Crohn's disease nor an intestinal abscess and she denies any known sick contacts but with her inability to keep food or fluid down presents for evaluation. [facility] Medical History (Updated 11/17/24 @ 07:[address] Jurgen Coreas, DO) Crohn's disease Hypertension Non-smoker Genetic testing of female Leukopenia Vitamin A deficiency Fatigue GERD (gastroesophageal reflux disease) Rash Anemia Back pain TIA (transient ischemic attack) Hair loss Rib injury Instability of left patellofemoral joint Stiffness of left knee Left knee pain Wears glasses Post-menopausal Anxiety Arthritis Rheumatoid arthritis Migraine headache History of hiatal hernia Gastric reflux History of echocardiogram History of stress test Cardiology follow-up encounter Iron deficiency COVID-19 virus detected (10/01/20) Inflammatory polyarthritis Fibromyalgia Herpes labialis Patent foramen ovale Hyperlipidemia History of TIA (transient ischemic attack) (11/25/20) Vision changes Anxiety IBS (irritable bowel syndrome) Home Medications ?Medication ?Instructions ?Recorded ?Last Taken ?Type acyclovir 400 mg tablet 400 mg PO DAILY PRN cold sore 04/07/16 08/15/17 History loperamide 2 mg capsule 4 mg PO DAILY diarrhea 04/07/16 08/15/17 History leflunomide 10 mg tablet 10 mg PO DAILY RA 11/25/20 Unknown History gabapentin 300 mg capsule 300 mg PO QHS PRN pain, mild 06/05/23 Unknown History ondansetron 4 mg disintegrating 4 mg PO Q8H PRN PRN Nausea #14 tabs 09/03/23 Unknown Rx tablet bio-identical hormone pellets See Rx Instructions .Route .COMPLEX 11/15/23 Unknown History cetirizine 10 mg tablet 10 mg PO DAILY allergy 11/15/23 Unknown History cholecalciferol (vitamin D3) 125 125 mcg PO DAILY 11/15/23 Unknown History mcg (5,000 unit) tablet gelatin capsules (empty) (Capsule 1 cap PO QHS estogen 11/15/23 Unknown History #0 capsule) diphenoxylate-atropine 2.5 1 tab PO BID PRN diarrhea #20 tabs 02/13/24 Unknown Rx mg-0.025 mg tablet (Lomotil) aspirin 81 mg tablet,delayed 81 mg PO DAILY #90 tabs 02/29/24 Unknown Rx release (Adult Aspirin Regimen) fluconazole 150 mg tablet 150 mg PO Q3D 2 doses #2 tabs 06/03/24 Unknown Rx phenazopyridine 200 mg tablet 200 mg PO TID PRN pain 6 doses #7 06/03/24 Unknown Rx (Pyridium) tabs alprazolam 0.5 mg tablet 0.5 mg PO DAILY anxiety 06/06/24 Unknown History ubrogepant 50 mg tablet (Ubrelvy) 50 mg PO DAILY PRN headache #16 08/10/24 Unknown Rx tabs atogepant 60 mg tablet (Qulipta) 60 mg PO DAILY #30 tabs 08/11/24 Unknown Rx pantoprazole 40 mg tablet,delayed 40 mg PO BID #60 TABLETS 08/19/24 Unknown Rx release tenapanor 50 mg tablet (Ibsrela) 50 mg PO BID #60 tabs 10/14/24 Unknown Rx budesonide 3 mg 3 mg PO DAILY bowel #30 ea 10/22/24 Unknown Rx capsule,delayed,extended release prednisone 20 mg tablet 20 mg PO QDAY #7 tabs 10/25/24 Unknown Rx lactulose 10 gram/15 mL oral 10 g (15 mL) PO QDAY #473 mL 11/03/24 Unknown Rx solution lubiprostone 8 mcg capsule 8 mcg PO BID #60 caps 11/07/24 Unknown Rx prochlorperazine maleate 10 mg 10 mg PO TID PRN nausea and 11/17/24 Unknown Rx tablet (Compazine) vomiting #21 tabs Allergy/AdvReac Type Severity Reaction Status Date / Time morphine Allergy Other Verified 11/16/24 19:26 rimegepant (From Nurtec ODT) Allergy dizzy & Verified 11/16/24 19:26 nausea bacitracin (From Neosporin AdvReac Rash Verified 11/16/24 19:26 ([id number])) metoclopramide (From Reglan) AdvReac Other Verified 11/16/24 19:26 metronidazole (From Flagyl) AdvReac Nausea Verified 11/16/24 19:26 neomycin (From Neosporin AdvReac Rash Verified 11/16/24 19:26 ([id number])) polymyxin B (From Neosporin AdvReac Rash Verified 11/16/24 19:26 ([id number])) sucralfate (From Carafate) AdvReac Nausea Verified 11/16/24 19:26 Family History Grandmother Uterine cancer Uncle Lung cancer Grandmother No problems noted. Grandfather Prostate cancer Sister Migraine Surgical History H/O LEEP History of right salpingo-oophorectomy Hx of foot surgery History of tonsillectomy History of cholecystectomy History of hysterectomy Social History household members: family housing: house current occupational status: employed current occupation: [employer] current occupational exposures/hazards: No pets and animals: No sexually active: Yes Smoking Status: Never smoker alcohol intake: never substance use type: does not use caffeine: Yes seatbelt use: always ROS ROS ED Constitutional Constitutional ED: Denies chills or fever(s) Eyes Eyes: Denies change in vision ENT ENT ED: Reports sore throat Cardiovascular Cardiovascular: Denies chest pain Respiratory/Chest Respiratory/Chest: Denies cough or dyspnea Gastrointestinal Gastrointestinal: Reports abdominal pain, nausea and vomiting; Denies diarrhea Genitourinary Genitourinary ED: Denies dysuria Musculoskeletal Musculoskeletal: Reports myalgias Integumentary Denies rash Neurologic Neurologic: Denies headache(s) Hematologic/Lymphatic Hematologic/Lymphatic: Denies easy bleeding or easy bruising EXAM Physical Exam Const Vital Signs: 11/16/24 19:26 11/16/24 23:21 11/16/24 23:25 Temperature 97.4 F L 98 F Temperature Source Oral Oral Pulse Rate 119 H 88 88 Respiratory Rate 20 H 18 18 Blood Pressure 130/94 H 120/95 H 125/90 H Blood Pressure Mean 106 103 101 Pulse Ox 98 99 99 Oxygen Delivery Method Room Air Room Air Room Air 11/17/24 00:39 11/17/24 01:00 Temperature 98 F Temperature Source Pulse Rate 67 60 Respiratory Rate 12 16 Blood Pressure 112/78 108/70 Blood Pressure Mean 89 82 Pulse Ox 99 99 Oxygen Delivery Method Room Air Positive well nourished and well developed General Appearance ED: well developed; Negative for pallor HEENT Reports dry mucous membranes HEENT Narrative: Mucous membranes are dry and tacky No tongue or lip swelling no oral lesions no airway edema or compromise; no signs of infection noted in the posterior pharynx Mouth ED: Yes dry mucous membranes Mouth: dry mucous membranes Eyes PERRL and EOMs intact bilaterally General Eye ED: Negative for scleral icterus Neck supple Resp normal respiratory effort and clear to auscultation bilaterally Cardio regular rate and regular rhythm GI non-distended and no masses GI Narrative: Abdomen is soft and nondistended with hyperactive bowel sounds. There is diffuse pain with palpation without voluntary guarding or rigidity. No pulsatile mass or fluid wave. No increased tympany Auscultation: hyperactive bowel sounds Palpation: soft Extremity normal to inspection Neuro oriented x3, CN's II-XII intact bilaterally and no sensory deficits noted Sensorium / Orientation: alert Motor Exam: strength 5/5 throughout Psych mental status grossly normal Skin no rashes or lesions noted and No skin turgor normal Skin Narrative: Skin turgor is increased General Skin Exam: Negative for jaundice or pallor MDM MDM MDM Narrative Medical decision making narrative: Patient arrived to the ER hypertensive and tachycardic but otherwise afebrile. She has history of IBS and Crohn's disease but on exam does not show changes concerning for small bowel obstruction. With her reports of vomiting there is concern for acute pancreatitis versus ileus versus viral infection such as COVID versus influenza versus RSV. Patient also may have norovirus or rotavirus. As her physical exam shows dehydration there is concern for acute kidney injury or clinically significant electrolyte abnormality. Basic blood work was obtained and shows no white count or left shift going against a systemic infection. Labs show no clinically significant electrolyte changes and kidney function is normal going against CANDIDO. Liver enzymes are also normal and lipase is normal going against acute pancreatitis. Urine sample shows dehydration with ketones which correlates with her history and exam. There is bacteria noted but no white blood cells and she does not have urinary symptoms and I feel this is most likely normal [place] and will not start on antibiotics but simply send the urine for culture. After 2 L of IV fluid Dilaudid and Compazine patient had no further bouts of vomiting and was able to tolerate an oral challenge. Therefore at this time his abdomen remains soft and nonsurgical vitals have improved and overall workup is negative I feel this is most likely viral in nature and patient is otherwise safe for discharge as she has been rehydrated and symptoms are now under control History & Record Review Discussion w/independent historian: Patient Lab Data Attestation: I reviewed the patient's lab results. Labs: Laboratory Results - last 24 hr 11/16/24 11/16/24 21:04 23:25 WBC 5.9 RBC 5.14 Hgb 14.5 Hct 45.4 MCV 88.3 MCH 28.2 MCHC 31.9 L RDW Std Deviation 46.1 H RDW Coeff of Milla 14.3 Plt Count 223 MPV 11.8 Immature Gran % (Auto) 0.200 Neut % (Auto) 93.0 H Lymph % (Auto) 2.9 L [place] % (Auto) 3.4 Eos % (Auto) 0.0 Baso % (Auto) 0.5 Absolute Neuts (auto) 5.5 Absolute Lymphs (auto) 0.17 L Nucleated RBC % 0 Sodium 141 Potassium 3.5 Chloride 108 H Carbon Dioxide 24.0 Anion Gap 9 BUN 18 Creatinine 0.68 Estim Creat Clear Calc 94.72 Est GFR (MDRD) Af Amer 118 Est GFR (MDRD) Non-Af 97 BUN/Creatinine Ratio 26.3 H Glucose 180 H Calcium 8.9 Total Bilirubin 0.60 AST 15 ALT 19 Alkaline Phosphatase 68 Total Protein 7.5 Albumin 3.6 Globulin 3.9 Albumin/Globulin Ratio 0.9 Lipase 20 L Serum , Qual NEGATIVE Urine Color Yellow Urine Clarity Clear Urine pH 5.0 Ur Specific [place] 1.030 Urine Protein 30 H Urine Glucose (UA) Normal Urine Ketones 150 A* Urine Occult Blood Negative Urine Nitrite Positive H Urine Bilirubin 3 H Urine Urobilinogen Normal Ur Leukocyte Esterase 25 H Urine RBC 0 SEEN Urine WBC 0-5 SEEN Ur Squamous Epith Cells 0-5 SEEN Ur Transition Epith Cell 0-5 SEEN Urine Bacteria 3+ Urine Mucus 0 SEEN Discharge Plan Triage Chief Complaint: Nausea/Vomiting ED Provider: Jurgen Coreas Dx/Rx/DC Orders Clinical Impression: Nausea & vomiting, Dehydration, Crohn's disease, Hypertension, History of IBS Instructions: ED Dehydration (Adult), ED Gastroenteritis, Viral (Adult) Prescriptions: New prochlorperazine maleate [Compazine] 10 mg tablet 10 mg PO TID PRN (Reason: nausea and vomiting) Qty: 21 0RF No Action phenazopyridine [Pyridium] 200 mg tablet 200 mg PO TID PRN (Reason: pain) Qty: 7 0RF fluconazole 150 mg tablet 150 mg PO Q3D 0 Days Qty: 2 0RF Rx Instructions: may repeat second dose 72 hrs after first dose if symptoms persist Ubrelvy 50 mg tablet 50 mg PO DAILY PRN (Reason: headache) Qty: 16 5RF Qulipta 60 mg tablet 60 mg PO DAILY Qty: 30 5RF loperamide 2 MG capsule 4 mg PO DAILY Patient Comments: diarrhea acyclovir 400 MG tablet 400 mg PO DAILY PRN (Reason: cold sore) Patient Comments: anti viral alprazolam 0.5 mg tablet 0.5 mg PO DAILY Patient Comments: anxiety leflunomide 10 MG tablet 10 mg PO DAILY ondansetron 4 mg tablet,disintegrating 4 mg PO Q8H PRN PRN (Reason: Nausea) Qty: 14 0RF cetirizine 10 mg tablet 10 mg PO DAILY cholecalciferol (vitamin D3) 125 mcg (5,000 unit) tablet 125 mcg PO DAILY bio-identical hormone pellets See Rx Instructions .ROUTE .COMPLEX Patient Comments: every 3-4 months gets one estrogen and one testosterone pellets under skin Rx Instructions: gets one estrogen and one testosterone pellet injucted q 3-4 months; Capsule #0 Capsule 1 cap PO QHS Patient Comments: Take one 100mgiprogesterone capsuleadaily at bedtime.i gabapentin 300 mg capsule 300 mg PO QHS PRN (Reason: pain, mild) diphenoxylate-atropine [Lomotil] 2.5-0.025 mg tablet 1 tab PO BID PRN (Reason: diarrhea) Qty: 20 0RF aspirin [Adult Aspirin Regimen] 81 mg tablet,delayed release (DR/EC) 81 mg PO DAILY Qty: 90 3RF pantoprazole 40 mg tablet,delayed release (DR/EC) 40 mg PO BID Qty: 60 2RF Ibsrela 50 mg tablet 50 mg PO BID Qty: 60 2RF Rx Instructions: must administer immediately before first meal of day/breakfast and dinner budesonide 3 mg capsule,delayed,extend.release 3 mg PO DAILY Qty: 30 5RF prednisone 20 mg tablet 20 mg PO QDAY Qty: 7 0RF lactulose 10 gram/15 mL solution 10 g PO QDAY Qty: 473 0RF lubiprostone 8 mcg capsule 8 mcg PO BID Qty: 60 2RF Stand Alone Forms: ED Work / School Excuse Primary Care Provider: Choco Beavers Referrals: Choco Beavers PA [Primary Care Provider] - Activity Restrictions/Additional Instructions: Your history and exam indicates a viral stomach infection leading to bouts of vomiting. This as cause dehydration which was replaced with 2 L of fluid in the ER. Symptoms from the viral infection would typically last anywhere from 24 hours to 7 days with the average being 3 days. Use the prescribed medication to help control nausea and vomiting and keep yourself well-hydrated and return to the ER should you have any further concerns Print Language: Vietnamese Disposition Disposition: Home, Self Care Discharge Date/Time: 11/17/24 01:20
[2024-11-17 00:39] VITALS: BP 112/78; PULSE 67; RESP 12; TEMP 36.6; O2SAT 99
[2024-11-17 01:00] VITALS: BP 108/70; PULSE 60; RESP 16; O2SAT 99
== END 2024-11-17 01:20 | disposition home or self-care (01) ==
PROVIDERS: Emergency Provider Emergency Medicine; PCP Physician Assistant; Visit Provider Emergency Medicine
DX: R11.2 Nausea with vomiting, unspecified (principal); K50.90 Crohn's disease, unspecified, without complications; E86.0 Dehydration; I10 Essential (primary) hypertension; E78.5 Hyperlipidemia, unspecified; Z90.710 Acquired absence of both cervix and uterus; J02.9 Acute pharyngitis, unspecified; R10.9 Unspecified abdominal pain; Z90.49 Acquired absence of other specified parts of digestive tract; Z86.73 Personal history of transient ischemic attack (TIA), and cerebral infarction without residual deficits; Z86.16 Personal history of COVID-19
CPT/HCPCS: 80053; 81001; 83690; 84703; 85025; 87086; 87088; 87631; 96361; 96374; 96375; 99282; A4216

== ENCOUNTER → 2024-12-06 | Outpatient (CLI) | payer OTHER, SELFPAY ==
[2024-12-07 04:07] LABS: PROGESTERONE 3.5 ng/mL (.)
== END | disposition home or self-care (01) ==
PROVIDERS: PCP Physician Assistant; Referring Provider Nurse Practitioner Family; Visit Provider Nurse Practitioner Family
DX: N95.1 Menopausal and female climacteric states (principal)
CPT/HCPCS: 36415; 82670; 84144; 84403

== ENCOUNTER 2024-12-15 05:18 | Day surgery (SDC) | payer OTHER, SELFPAY ==
--- NOTE | 2024-12-13 16:58 | PAT.ANESEVAL ---
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 When Was Last Pacemaker Check QUESTION #4 FULL TEXT: You/Your Family Experience fever (hyperthermia) with Anesthesia Last Oral Intake Last Oral intake: Last Oral Intake NPO since Meds taken in AM with sips of water? Meds patient instructed to take am of surgery PONV PONV - lithograph operator: PONV - lithograph operator Female Yes 12/13/24 16:28 HX of Motion Sickness Yes 12/13/24 16:28 HX of N/V After Surgery Yes 12/13/24 16:28 Non-Smoker Yes 12/13/24 16:28 Duration of Surgery greater No 12/13/24 16:28 than 60 minutes Number of Risk Factors 4 12/13/24 16:28 PONV Score Severe Risk 12/13/24 16:28 Height & Weight Height & Weight: Anesthesia: Height & Weight Height 5 ft 6 in 11/16/24 19:26 Respiratory Assessment Respiratory Assessment - lithograph operator: Respiratory Tract Infection Hx - lithograph operator Hx Respiratory Tract Infection No 12/13/24 16:28 STOP Sleep Apnea STOP Sleep Apnea - lithograph operator: STOP Sleep Apnea - lithograph operator Hx Hypertension No 12/13/24 16:28 Hx Sleep Apnea No 12/13/24 16:28 CPAP BIPAP Do you snore loudly (louder No 12/13/24 16:28 than talking or can be heard Do you often feel tired/ No 12/13/24 16:28 fatigued/ sleepy during daytime? Has anyone observed you stop No 12/13/24 16:28 breathing during sleep? STOP Results Negative 12/13/24 16:28 QUESTION #5 FULL TEXT : Do you snore loudly (louder than talking or can be heard through closed doors)? Tobacco Use History Tobacco Use History - lithograph operator: Tobacco Use History - lithograph operator Tobacco Use Non-smoker 04/08/24 14:09 Smoking Status Never smoker 12/13/24 16:28 Hx Tobacco Use No 12/13/24 16:28 Years Smoking Packs Smoked per Day Smoking Cessation Date was within the last 15 years Hx Smoking Cessation Date Hx Smoking Cessation No 12/13/24 16:28 Counseling Hematologic Medial History Hematologic Hx - lithograph operator: Hematologic Medical Hx - turner off Hx of Blood Transfusion No 12/13/24 16:28 Hx of Transfusion in last 3 No 12/13/24 16:28 Months Date of Last Transfusion (if within last 3 months) Ever experience any problems No 12/13/24 16:28 with transfusion(s)? Specify any problems Hx of Preganancy in last 3 No 12/13/24 16:28 Months Nurse Filling Out Transfusion DSCHRIBER 12/13/24 16:28 & Questions: Date: 12/13/24 12/13/24 16:28 Time: 16:31 12/13/24 16:28 Patient unable to answer at this time (ie. confused, unrespo /Reproduction History /Reproductive History - lithograph operator: /Reproductive Hx- lithograph operator Hx Now No 12/13/24 16:28 Gestational Age (in weeks): EDC: Hx Hx Para Hx Section SAB No 12/13/24 16:28 PFSH Medical History (Updated 12/13/24 @ 16:39 by Mary Davis) Depression History of steroid therapy Easy bruising Shortness of breath on exertion Crohn's disease Non-smoker Genetic testing of female Leukopenia Anemia Instability of left patellofemoral joint Stiffness of left knee Left knee pain Wears glasses Post-menopausal Anxiety Arthritis Rheumatoid arthritis Migraine headache History of hiatal hernia Gastric reflux History of echocardiogram History of stress test Cardiology follow-up encounter COVID-19 virus detected (10/01/20) Inflammatory polyarthritis Fibromyalgia Herpes labialis Patent foramen ovale Hyperlipidemia IBS (irritable bowel syndrome) Home Medications ?Medication ?Instructions ?Recorded ?Last Taken ?Type acyclovir 400 mg tablet 400 mg PO DAILY PRN cold sore 04/07/16 08/15/17 History loperamide 2 mg capsule 4 mg PO DAILY diarrhea 04/07/16 08/15/17 History leflunomide 10 mg tablet 10 mg PO DAILY RA 11/25/20 Unknown History gabapentin 300 mg capsule 300 mg PO QHS PRN pain, mild 06/05/23 Unknown History ondansetron 4 mg disintegrating 4 mg PO Q8H PRN PRN Nausea #14 tabs 09/03/23 Unknown Rx tablet cetirizine 10 mg tablet 10 mg PO DAILY allergy 11/15/23 Unknown History aspirin 81 mg tablet,delayed 81 mg PO DAILY #90 tabs 02/29/24 12/10/24 Rx release (Adult Aspirin Regimen) alprazolam 0.5 mg tablet 0.5 mg PO DAILY anxiety 06/06/24 Unknown History ubrogepant 50 mg tablet (Ubrelvy) 50 mg PO DAILY PRN headache #16 08/10/24 Unknown Rx tabs budesonide 3 mg 3 mg PO DAILY bowel #30 ea 10/22/24 Unknown Rx capsule,delayed,extended release dicyclomine 20 mg tablet 20 mg PO TID PRN abdominal pain 12/13/24 Unknown History ergocalciferol (vitamin D2) 1,250 1,250 mcg PO QWEEK 12/13/24 Unknown History mcg (50,000 unit) capsule fluoxetine 20 mg capsule 20 mg PO QHS 12/13/24 Unknown History pantoprazole 40 mg tablet,delayed 40 mg PO DAILY 12/13/24 Unknown History release Allergy/AdvReac Type Severity Reaction Status Date / Time morphine Allergy Other Verified 12/13/24 16:19 rimegepant (From [facility] ODT) Allergy dizzy & Verified 12/13/24 16:19 nausea bacitracin (From Neosporin AdvReac Rash Verified 12/13/24 16:19 ([id number])) metoclopramide (From Reglan) AdvReac Other Verified 12/13/24 16:19 metronidazole (From Flagyl) AdvReac Nausea Verified 12/13/24 16:19 neomycin (From Neosporin AdvReac Rash Verified 12/13/24 16:19 ([id number])) polymyxin B (From Neosporin AdvReac Rash Verified 12/13/24 16:19 ([id number])) sucralfate (From Carafate) AdvReac Nausea Verified 12/13/24 16:19 Family History Grandmother Uterine cancer Uncle Lung cancer Grandmother No problems noted. Grandfather Prostate cancer Sister Migraine Surgical History (Updated 12/13/24 @ 16:39 by Mary Davis) History of esophagogastroduodenoscopy (EGD) History of tonsillectomy and adenoidectomy H/O LEEP History of right salpingo-oophorectomy Hx of foot surgery History of tonsillectomy History of cholecystectomy History of hysterectomy Social History household members: family housing: house current occupational status: employed current occupation: [employer] current occupational exposures/hazards: No pets and animals: No sexually active: Yes Smoking Status: Never smoker alcohol intake: never substance use type: does not use caffeine: Yes seatbelt use: always Audit: Pertinent Findings Pertinent Findings EKG Perinent findings: NSR, possible left atrial enlargement Echo (EF%) pertinent findings: EF 65%, bilateral mitral valve thickening - 11/21 Additional pertinent findings: Carotid duplex scan negative b/l Recommendation Anesthesia Recommendation Anesthesia recommendation: OPTIMIZED for anesthesia (Pending physical examination by anesthesiologist on DOS. )
[2024-12-15 05:45] VITALS: BP 143/60; PULSE 62; RESP 18; TEMP 36.6; O2SAT 100; BMI 24.3
--- NOTE | 2024-12-15 06:20 | PCM.HP.STD ---
HPI - General General Date of Admission: 12/15/24 Date of Service: 12/15/24 Chief Complaint: Abdominal pain and refractory GERD HPI Narrative DERICK SCHUSTER, is a 49 F who presentsDERICK SCHUSTER, is a 48 F who presents to the office today for follow up. She was previously scheduled for Teddy to address reflux disease but cancelled due to emotional state. [facility] ED presentation 01.17.21 for severe epigastric pain. Lipase found to be elevated at 2221 and subsequently lowered to 706 later that day (78.0 on 07.30.21); suspected to be r/t keto diet. Prior workup: US RUQ ([facility]) 5 normal pancreas with obscured tail; normal liver; prior cholecystectomy; normal biliary dilation. EGD 04.19.21 with slight reactive gastropathy noted; duodenal mucosa without alteration. Severe bile reflux of stomach and significant hemorrhagic gastritis. Gastric emptying study ([facility]) .12.16 normal rate of gastric emptying with 83% retention at one hour. And 1% retained at 4hours. Stool 11.03.18 elastase normal >800. Upper GI series ([facility]) 08.06.21 found small sliding hiatal hernia; gastroesophageal reflux to above level of geovani. *I established 01.23.22 for management of GERD, bile reflux gastritis and IBS-D as diagnosed by her passenger screener with [facility] who is now retiring. History of C.Diff antigen positive which she reports as occurring 4-5 times with previous provider discussing FMT, thought antigen has only been positive and not actually an infection. Biochemical workup CMP, CRP, LDH, ESR, CARLOS comp, ANCA, celiac, GAME, TAMMY. Crohn?s prognostic not indicative of IBD (AMCA+), IBD expanded panel WNL. Eosinophils H6.4 Stool? C.Diff and enteric pathogens WNL EGD and colonoscopy 04.30.22. EGD found irregular Zline 37cm from incisors; gastritis. H.Pylori negative. Colonoscopy found congested mucosa of RS and sigmoid colon; diverticulosis of RS and sigmoid colon. Ileum WNL. Stool study enteric pathogen and C.Diff WNL. OV 05.14.22 recommend capsule endoscopy Capsule endoscopy 06.13.22 noting gastritis with ulcerations in the stomach. Recommend biochemical workup, PPI and continue colestipol Recommend biochemical workup CRP, ESR, H.Pylori, gastrin. ? Biochemical workup CRP, ESR, H.pylori, gastrin without pertinent abnormality. OV 08.20.22 biochemical workup. Continue protonix and transition to famotidine. Biochemical workup RAST, Anti-parietal cell, intrinsic factor without pertinent abnormality. Stool testing lactoferrin, calprotectin, giardia, ova/parasite WNL. Contact 08.27.22 Doing well overall. Continues to have intermittent, shortly lived, focal abdominal pain OV 1 Biochemical workup. Start pancreatic enzymes. ? Biochemical workup IBD profile, hgb, TIBC, iron sat, VIT B12, Folate without pertinent abnormality. ? Uric acid L2.3, iron L48 Contact with symptoms. ? Lactose tolerance test: Glucose 1,2,3,4,5 WNL ? Biochemical anti-parietal cell ab, intrinsic factor WNL ? MREnterography 07.04.23 circumferential wall thickening and mucosal hyperenhancement; multiple short segment areas of narrowing of transverse colon, likely contractions. Contact 07.07.23 Start budesonide ? Stool 09.01.23 (PCP) C.Difficile PCR +, toxin/antigen negative. [facility] ED 09.03.23 with loose stools for a week, PCP recommended IV hydration at ED. Recent use of ATB for sinusitis. Discharged with bentyl/prednisone. Contact 09.04.23 as ED follow up. Stools are orange and mucus-like. She did not start budesonide, will start 09.17.23 in case the budesonide makes her ill. OV 24 Pt here with c/o of irregular BM. Sometimes BM are hard as rocks and sometimes loose. She is wondering if she needs a CT, weight loss medication, and FLMA paperwork. Pt continues on Budesonide 3mg, pantoprazole 40mg daily and Zofran prn. OV 1.16.25 pt reports continued symptoms from previous visit, continues to have alternating bowel movements. Pt reports that sometimes pantoprazole helps, sometimes it doesn't. Pt reports increased stress in personal life. Pt wonders if she should have an elastography due to father and sister's enlarged livers. [facility] Medical History Depression History of steroid therapy Easy bruising Shortness of breath on exertion Crohn's disease Non-smoker Genetic testing of female Leukopenia Anemia Instability of left patellofemoral joint Stiffness of left knee Left knee pain Wears glasses Post-menopausal Anxiety Arthritis Rheumatoid arthritis Migraine headache History of hiatal hernia Gastric reflux History of echocardiogram History of stress test Cardiology follow-up encounter COVID-19 virus detected (10/01/20) Inflammatory polyarthritis Fibromyalgia Herpes labialis Patent foramen ovale Hyperlipidemia IBS (irritable bowel syndrome) Home Medications ?Medication ?Instructions ?Recorded ?Last Taken ?Type acyclovir 400 mg tablet 400 mg PO DAILY PRN cold sore 04/07/16 08/15/17 History loperamide 2 mg capsule 4 mg PO DAILY diarrhea 04/07/16 12/14/24 History leflunomide 10 mg tablet 10 mg PO DAILY RA 11/25/20 12/14/24 History gabapentin 300 mg capsule 300 mg PO QHS PRN pain, mild 06/05/23 Unknown History ondansetron 4 mg disintegrating 4 mg PO Q8H PRN PRN Nausea #14 tabs 09/03/23 Unknown Rx tablet cetirizine 10 mg tablet 10 mg PO DAILY allergy 11/15/23 12/14/24 History aspirin 81 mg tablet,delayed 81 mg PO DAILY #90 tabs 02/29/24 12/10/24 Rx release (Adult Aspirin Regimen) alprazolam 0.5 mg tablet 0.5 mg PO DAILY anxiety 06/06/24 12/14/24 History ubrogepant 50 mg tablet (Ubrelvy) 50 mg PO DAILY PRN headache #16 08/10/24 Unknown Rx tabs budesonide 3 mg 3 mg PO DAILY bowel #30 ea 10/22/24 12/14/24 Rx capsule,delayed,extended release dicyclomine 20 mg tablet 20 mg PO TID PRN abdominal pain 12/13/24 Unknown History ergocalciferol (vitamin D2) 1,250 1,250 mcg PO QWEEK 12/13/24 12/14/24 History mcg (50,000 unit) capsule fluoxetine 20 mg capsule 20 mg PO QHS 12/13/24 12/14/24 History pantoprazole 40 mg tablet,delayed 40 mg PO DAILY 12/13/24 12/14/24 History release Allergy/AdvReac Type Severity Reaction Status Date / Time morphine Allergy Other Verified 12/15/24 05:42 rimegepant (From Nurtec ODT) Allergy dizzy & Verified 12/15/24 05:42 nausea bacitracin (From Neosporin AdvReac Rash Verified 12/15/24 05:42 ([id number])) metoclopramide (From Reglan) AdvReac Other Verified 12/15/24 05:42 metronidazole (From Flagyl) AdvReac Nausea Verified 12/15/24 05:42 neomycin (From Neosporin AdvReac Rash Verified 12/15/24 05:42 ([id number])) polymyxin B (From Neosporin AdvReac Rash Verified 12/15/24 05:42 ([id number])) sucralfate (From Carafate) AdvReac Nausea Verified 12/15/24 05:42 Family History Grandmother Uterine cancer Uncle Lung cancer Grandmother No problems noted. Grandfather Prostate cancer Sister Migraine Surgical History History of esophagogastroduodenoscopy (EGD) History of tonsillectomy and adenoidectomy H/O LEEP History of right salpingo-oophorectomy Hx of foot surgery History of tonsillectomy History of cholecystectomy History of hysterectomy Social History household members: family housing: house current occupational status: employed current occupation: [employer] current occupational exposures/hazards: No pets and animals: No sexually active: Yes Smoking Status: Never smoker alcohol intake: never substance use type: does not use caffeine: Yes seatbelt use: always ROS Constitutional Constitutional: Denies fatigue, fever(s), poor appetite, weight gain or weight loss Gastrointestinal Gastrointestinal: Denies belching, bloating, change in bowel habits, change in stool character, chewing difficulty, coffee ground emesis, constipation, cramping, diarrhea, dyspepsia, dysphagia, early satiety, excessive flatus, fecal incontinence, heartburn, hematemesis, hematochezia, hemorrhoids, loose stools, melena, nausea, odynophagia, rectal bleeding, tenesmus, vomiting or weight changes Vital Signs Vital Signs Vital Signs: 12/15/24 05:44 12/15/24 05:45 Temperature 97.9 F Temperature Source Temporal Pulse Rate 62 Respiratory Rate 18 Respiratory Pattern Normal Blood Pressure 143/60 H Blood Pressure Mean 87 Blood Pressure Source Monitor Blood Pressure Position Semi-Fowlers Blood Pressure Location Left Arm Pulse Ox 100 Oxygen Delivery Method Room Air Weight Weight: 151 lb Body Mass Index (BMI) 24.3 Physical Exam Const alert, oriented x3, no apparent distress and healthy appearing General Appearance: cooperative GI normal to inspection, nondistended, normoactive bowel sounds, soft to palpation, non-tender and non-distended Percussion: normal to percussion Rectal Exam: deferred Assessment & Plan Assessment/Plan (1) GERD (gastroesophageal reflux disease): (2) Crohn's disease: PLAN: Assessment and Plan Assessment and Plan (1) Fatty (change of) liver, not elsewhere classified: Status: Acute Plan: She was noted to have heterogeneous liver on previous examination of the abdomen with a CT scan of the abdomen pelvis back in 2022. We will get an ultrasound with elastography to quantify any steatosis in the liver and if there is any degree of fibrosis. (2) Crohn's disease: Status: Acute Plan: Her symptoms are a lot better with the budesonide therapy. However it is make her constipated so we decreased it to 3 mg a day. Currently she is off the budesonide. Her inflammatory markers do not show any sign of acute or chronic inflammation in her fecal calprotectin is within normal limits at this time. (3) Gastritis: Status: Chronic Qualifiers: Gastritis type: unspecified gastritis Chronicity: chronic Gastritis bleeding: without bleeding Qualified Code(s): K29.50 - Unspecified chronic gastritis without bleeding Plan: Gastritis likely secondary to bile gastritis without H. pylori positive. She treated with pantoprazole and transition to famotidine. We will switch her to 20 mg p.o. twice daily because she is getting some breakthrough symptoms at night. (4) Diarrhea: Status: Chronic Qualifiers: Diarrhea type: functional diarrhea Qualified Code(s): K59.1 - Functional diarrhea Plan: The differential diagnosis for chronic diarrhea at this time does include postinfectious IBS, small bacterial overgrowth and less likely exocrine pancreatic insufficiency. Awaiting stool studies for further recommendations. Underwent She MRI enterography showed lobular inflammation consistent with an enteritis with the differential diagnosis being infectious, postinfectious or inflammatory bowel disease. We gave her budesonide to treat the inflammation was seen on her MRI. However she did not start the medicine yet. She did go to the emergency room because she developed some abdominal pain and it did show a possible focal ileus due to mild dilation of the small bowel secondary to infection or possible inflammatory bowel disease. She said that she would start budesonide now she is off of work for a few days. Hopefully this will cause some improvement in her symptoms. (5) GERD (gastroesophageal reflux disease): Status: Acute Comment: Not controlled with meds' Plan: Her gastroesophageal reflux disease was controlled medicines but she has become refractory. We will perform an upper endoscopy because she has never had 1 in the past to evaluate her upper GI tract. Orders: Orders ABD Complete w/ Elastography Today K76.0 - Fatty (change of) liver, not elsewhere classified
--- NOTE | 2024-12-15 06:21 | PCM.PRE.AN2 ---
ASA Classification* ASA Classification ASA Classification: 2 Assessment & Plan Anesthesia* Anesthesia Assessment Anesthesia Assessment: Discussed sedation and/or anesthesia options, risks, benefits, and alternatives with patient/parents/legal guardian/POA. Questions invited. The patient/parents/legal guardian/POA seems to understand and agrees to proceed with anesthesia plan. Reviewed the physical assessment, medical history, allergy history and patient home medications list prior to surgery/procedure/anesthetic and documented any changes. Performed airway and anesthesia risk assessments. Anesthesia Type Anesthesia Type: MAC History Source History Obtained from:: Patient and Chart Anesthesia Focused Assessment* Temperature: 97.9 F Pulse Rate: 62 Blood Pressure: 143/60 Respiratory Rate: 18 Pulse Ox: 100 Oxygen Delivery Method: Room Air Airway Assessment Mouth opens: >3 cm Mallampati Score: I Teeth Condition: Intact Neck Range of motion (ROM): Full ROM Focused Labs Anesthesia Preop lab: CBC WBC 5.9 K/mm3 (4.4-11.0) 11/16/24 21:04 11/16/24 RBC 5.14 M/mm3 (4.2-5.4) 11/16/24 21:04 11/16/24 Hgb 14.5 g/dL (12.0-15.0) 11/16/24 21:04 11/16/24 Hct 45.4 % (37-47) 11/16/24 21:04 11/16/24 Plt Count 223 K/mm3 (150-450) 11/16/24 21:04 11/16/24 CHEMISTRY Potassium 3.5 mmol/L (3.5-5.1) 11/16/24 21:04 11/16/24 Sodium 141 mmol/L (136-145) 11/16/24 21:04 11/16/24 Magnesium 2.2 mg/dL (1.6-2.6) 10/13/23 11:18 10/13/23 Phosphorus 3.1 mg/dL (2.5-4.9) 07/03/23 09:34 07/03/23 BUN 18 mg/dL (7-18) 11/16/24 21:04 11/16/24 Creatinine 0.68 mg/dL (0.55-1.02) 11/16/24 21:04 11/16/24 Glucose 180 mg/dL (74-106) H 11/16/24 21:04 11/16/24 POC Glucose 91 mg/dL (74-106) 11/15/23 09:58 11/15/23 TSH 2.01 uIU/mL (0.358-3.74) 04/01/23 12:17 04/01/23 COAG PT 13.6 SECONDS (11.7-14.9) 07/18/24 10:49 07/18/24 Pre-Assessment Diagnosis/Proposed Procedure Planned Operative Procedure(s): EGD Anesthesia History Anesthesia History - cigar bander hand: Anesthesia History - cigar bander hand Hx Hospitalization No 12/13/24 16:28 Any Problems With Anesthesia Yes: N,V 12/13/24 16:28 Cholinesterase deficiency No 12/13/24 16:28 You/Your Family Experience No 12/13/24 16:28 fever (hyperthermia) with Relationship Recent Exposure to Contagious No 12/15/24 05:44 Disease Does patient have nerve No 12/13/24 16:28 stimulator Patient instructed to have device shut off --Does patient have Pacemaker No 12/15/24 05:45 or ICD? When Was Last Pacemaker Check QUESTION #4 FULL TEXT: You/Your Family Experience fever (hyperthermia) with Anesthesia Last Oral Intake Last Oral intake: Last Oral Intake NPO since 21:00 12/15/24 05:45 Meds taken in AM with sips of water? Meds patient instructed to take am of surgery PONV PONV - cigar bander hand: PONV - cigar bander hand Female Yes 12/13/24 16:28 HX of Motion Sickness Yes 12/13/24 16:28 HX of N/V After Surgery Yes 12/13/24 16:28 Non-Smoker Yes 12/13/24 16:28 Duration of Surgery greater No 12/13/24 16:28 than 60 minutes Number of Risk Factors 4 12/13/24 16:28 PONV Score Severe Risk 12/13/24 16:28 Height & Weight Height & Weight: Anesthesia: Height & Weight Height 5 ft 6 in 12/15/24 05:45 Weight: 68.492 kg 12/15/24 05:45 Body Mass Index (BMI) 24.3 12/15/24 05:45 Respiratory Assessment Respiratory Assessment - cigar bander hand: Respiratory Tract Infection Hx - cigar bander hand Hx Respiratory Tract Infection No 12/13/24 16:28 STOP Sleep Apnea STOP Sleep Apnea - cigar bander hand: STOP Sleep Apnea - cigar bander hand Hx Hypertension No 12/13/24 16:28 Hx Sleep Apnea No 12/13/24 16:28 CPAP BIPAP Do you snore loudly (louder No 12/13/24 16:28 than talking or can be heard Do you often feel tired/ No 12/13/24 16:28 fatigued/ sleepy during daytime? Has anyone observed you stop No 12/13/24 16:28 breathing during sleep? STOP Results Negative 12/13/24 16:28 QUESTION #5 FULL TEXT : Do you snore loudly (louder than talking or can be heard through closed doors)? Tobacco Use History Tobacco Use History - cigar bander hand: Tobacco Use History - cigar bander hand Tobacco Use Non-smoker 04/08/24 14:09 Smoking Status Never smoker 12/13/24 16:28 Hx Tobacco Use No 12/13/24 16:28 Years Smoking Packs Smoked per Day Smoking Cessation Date was within the last 15 years Hx Smoking Cessation Date Hx Smoking Cessation No 12/13/24 16:28 Counseling Hematologic Medial History Hematologic Hx - cigar bander hand: Hematologic Medical Hx - roll over loader Hx of Blood Transfusion No 12/13/24 16:28 Hx of Transfusion in last 3 No 12/13/24 16:28 Months Date of Last Transfusion (if within last 3 months) Ever experience any problems No 12/13/24 16:28 with transfusion(s)? Specify any problems Hx of Preganancy in last 3 No 12/13/24 16:28 Months Nurse Filling Out Transfusion DSCHRIBER 12/13/24 16:28 & Questions: Date: 12/13/24 12/13/24 16:28 Time: 16:31 12/13/24 16:28 Patient unable to answer at this time (ie. confused, unrespo /Reproduction History /Reproductive History - cigar bander hand: /Reproductive Hx- cigar bander hand Hx Now No 12/13/24 16:28 Gestational Age (in weeks): EDC: Hx Hx Para Hx Section SAB No 12/13/24 16:28 PFSH Medical History Depression History of steroid therapy Easy bruising Shortness of breath on exertion Crohn's disease Non-smoker Genetic testing of female Leukopenia Anemia Instability of left patellofemoral joint Stiffness of left knee Left knee pain Wears glasses Post-menopausal Anxiety Arthritis Rheumatoid arthritis Migraine headache History of hiatal hernia Gastric reflux History of echocardiogram History of stress test Cardiology follow-up encounter COVID-19 virus detected (10/01/20) Inflammatory polyarthritis Fibromyalgia Herpes labialis Patent foramen ovale Hyperlipidemia IBS (irritable bowel syndrome) Home Medications ?Medication ?Instructions ?Recorded ?Last Taken ?Type acyclovir 400 mg tablet 400 mg PO DAILY PRN cold sore 04/07/16 08/15/17 History loperamide 2 mg capsule 4 mg PO DAILY diarrhea 04/07/16 12/14/24 History leflunomide 10 mg tablet 10 mg PO DAILY RA 11/25/20 12/14/24 History gabapentin 300 mg capsule 300 mg PO QHS PRN pain, mild 06/05/23 Unknown History ondansetron 4 mg disintegrating 4 mg PO Q8H PRN PRN Nausea #14 tabs 09/03/23 Unknown Rx tablet cetirizine 10 mg tablet 10 mg PO DAILY allergy 11/15/23 12/14/24 History aspirin 81 mg tablet,delayed 81 mg PO DAILY #90 tabs 02/29/24 12/10/24 Rx release (Adult Aspirin Regimen) alprazolam 0.5 mg tablet 0.5 mg PO DAILY anxiety 06/06/24 12/14/24 History ubrogepant 50 mg tablet (Ubrelvy) 50 mg PO DAILY PRN headache #16 08/10/24 Unknown Rx tabs budesonide 3 mg 3 mg PO DAILY bowel #30 ea 10/22/24 12/14/24 Rx capsule,delayed,extended release dicyclomine 20 mg tablet 20 mg PO TID PRN abdominal pain 12/13/24 Unknown History ergocalciferol (vitamin D2) 1,250 1,250 mcg PO QWEEK 12/13/24 12/14/24 History mcg (50,000 unit) capsule fluoxetine 20 mg capsule 20 mg PO QHS 12/13/24 12/14/24 History pantoprazole 40 mg tablet,delayed 40 mg PO DAILY 12/13/24 12/14/24 History release Allergy/AdvReac Type Severity Reaction Status Date / Time morphine Allergy Other Verified 12/15/24 05:42 [facility] ([facility]) Allergy dizzy & Verified 12/15/24 05:42 nausea bacitracin (From Neosporin AdvReac Rash Verified 12/15/24 05:42 ([id number])) metoclopramide (From Reglan) AdvReac Other Verified 12/15/24 05:42 metronidazole (From Flagyl) AdvReac Nausea Verified 12/15/24 05:42 neomycin (From Neosporin AdvReac Rash Verified 12/15/24 05:42 ([id number])) polymyxin B (From Neosporin AdvReac Rash Verified 12/15/24 05:42 ([id number])) sucralfate (From Carafate) AdvReac Nausea Verified 12/15/24 05:42 Family History Grandmother Uterine cancer Uncle Lung cancer Grandmother No problems noted. Grandfather Prostate cancer Sister Migraine Surgical History History of esophagogastroduodenoscopy (EGD) History of tonsillectomy and adenoidectomy H/O LEEP History of right salpingo-oophorectomy Hx of foot surgery History of tonsillectomy History of cholecystectomy History of hysterectomy Social History household members: family housing: house current occupational status: employed current occupation: [employer] current occupational exposures/hazards: No pets and animals: No sexually active: Yes Smoking Status: Never smoker alcohol intake: never substance use type: does not use caffeine: Yes seatbelt use: always Review of Systems (Anesthesia) ROS Narrative System reviewed and no additional complaints, except as documented.
[2024-12-15 06:27] VITALS: BP 143/60; PULSE 62; RESP 18; TEMP 36.6; O2SAT 100
--- NOTE | 2024-12-15 06:30 | EGD_PTH ---
PATIENT: DERICK SCHUSTER LOC: EN U#:[id number] AGE/SX: 49/F ROOM: RE12/15/[address]: Dr. Soto Taylor DO : 1975 BED: DIS: 12/15/2024 SPEC #: [id number] RECD: 12/15/24 10:29 STATUS: KWADWO ANIYAH #: [id number] MARCELINA: 12/15/24 06:[address]: Soto Taylor DEPT: SURGICAL PATHOLOGY RECD BY: Dioni Navarrete ENTERED: 12/15/24 11:24 SP TYPE: EGD BIOPSY OT DR: STEFANI Nixon Tissues: A - Duodenum, NOS B - Gastric mucous membrane C - Esophagus, NOS Procedures: Immunohistochemical Stains Surgery Specimen Level IV HEADER OPERATION: EGD, biopsy PRE-OP DIAGNOSIS: Fatty (change of) liver, not elsewhere classified, Crohn's disease, gastritis, diarrhea, GERD TISSUE SUBMITTED: A- Duodenum biopsy, B- Gastric antrum biopsy, C- Distal esophagus biopsy MICROSCOPIC DIAGNOSIS A. Duodenum, biopsy: * Normal villous architecture with increased intraepithelial lymphocytes - see note. * Wilfrid gland hyperplasia. Note: This pattern of injury is etiologically nonspecific and the differential diagnosis includes sensitivity to gluten and non-gluten proteins, small intestinal bacterial overgrowth, stasis related changes, infection, protein calorie malnutrition, tropical sprue, and medication injury (NSAIDs, Olmesartan / Benicar, Mycophenolic acid, Idelalisib, for example). If celiac disease is a clinical concern, additional clinical studies, such as tTG-IgA, are recommended. B. Stomach, antrum, biopsy: * Antral and oxyntic mucosa with chronic inflammation. * The immunostain is negative for H pylori organisms. C. Distal esophagus, biopsy: * Squamous mucosa negative for eosinophils. * Columnar mucosa negative for goblet cell metaplasia. * Negative for dysplasia. MICROSCOPIC DESCRIPTION Slides are reviewed. These tests were developed and their performance characteristics determined by [facility]. They may not have been cleared or approved by the U.S. Food and Drug Administration. The FDA has determined that such clearance or approval is not necessary. The above immunohistochemical/dualISH markers are ordered and reviewed by the Pathologist. GROSS DESCRIPTION A. Received in fixative is one container labeled with the patient's name and designated Duodenum biopsy. The specimen consists of multiple irregular fragments of light steen soft tissue that in aggregate measure 1.2 x 0.7 x 0.2 cm. The specimen is totally submitted in one cassette. B. Received in fixative is one container labeled with the patient's name and designated Gastric antrum biopsy. The specimen consists of multiple irregular fragments of light steen soft tissue that in aggregate measure 1.4 x 0.5 x 0.2 cm. The specimen is totally submitted in one cassette. C. Received in fixative is one container labeled with the patient's name and designated Distal esophagus biopsy. The specimen consists of two irregular fragments of light steen soft tissue that in aggregate measure 0.7 x 0.3 x 0.2 cm. The specimen is totally submitted in one cassette. 12/15/2024 CPT:[id number] ,[id number]
[2024-12-15 06:55] VITALS: BP 110/85; BP 114/79; BP 143/60; PULSE 70; PULSE 74; RESP 14; RESP 20; TEMP 36.3; O2SAT 98
--- NOTE | 2024-12-15 06:55 | PCM.POST.ANE ---
Anesthesia: Postop Eval I Current Vital Signs Temperature: 97.4 F Pulse Rate: 70 Blood Pressure: 110/85 Respiratory Rate: 20 Pulse Ox: 98 Assessment Airway patent: Yes Spontaneous unlabored respirations: Yes nausea: No Vomiting: No Anesthesia Complication: No Fluid Hydration Crystalloid volume administer (ml): 10 Total IV fluid infused: 10 Progress Note Anesthesia document: Postop Eval 1 completed: Yes
[2024-12-15 07:00] VITALS: BP 109/79; BP 143/60; PULSE 63; RESP 16; O2SAT 99
--- NOTE | 2024-12-15 07:04 | OP.CCLET_ITS ---
12/15/2024 Michi Nixon Re : Upper GI endoscopy procedure for Carol Grissom Dear Ruthann This procedure was performed on November. My impressions and recommendations are as follows: Impressions : - Z-line irregular, 39 cm from the incisors. Biopsied. - Bile gastritis. Biopsied. - Erythematous duodenopathy. Biopsied. Recommendations : - Discharge patient to home. - Resume previous diet. - Continue present medications. - Await pathology results. - Repeat upper endoscopy for surveillance. - Return to GI office. My findings are described in the full procedure note, which is enclosed. If I can be of further assistance, please feel free to contact me at . Sincerely, Soto Taylor, 12/15/2024 7:03:14 AM This report has been signed electronically.
--- NOTE | 2024-12-15 07:04 | OP.EGD_ITS ---
Patient Name: Carol Grissom Procedure Date: 12/15/2024 6:16 AM Date of : 1975 Age: 49 Procedure: Upper GI endoscopy Indications: Heartburn Providers: Soto Taylor DO Referring MD: Michi Nixon Medicines: Monitored Anesthesia Care Patient Profile: This is a 49 year old female. Refer to note in patient chart for documentation of history and physical. Patient has symptoms. Complications: No immediate complications. Procedure: Pre-Anesthesia Assessment: - Prior to the procedure, a History and Physical was performed, and patient medications and allergies were reviewed. The patient is competent. The risks and benefits of the procedure and the sedation options and risks were discussed with the patient. All questions were answered and informed consent was obtained. Patient identification and proposed procedure were verified by the physician in the pre-procedure area. Mental Status Examination: alert and oriented. Airway Examination: normal oropharyngeal airway and neck mobility. CV Examination: normal. Prophylactic Antibiotics: The patient does not require prophylactic antibiotics. Prior Anticoagulants: The patient has taken no anticoagulant or antiplatelet agents. ASA Grade Assessment: II - A patient with mild systemic disease. After reviewing the risks and benefits, the patient was deemed in satisfactory condition to undergo the procedure. The anesthesia plan was to use monitored anesthesia care (MAC). Immediately prior to administration of medications, the patient was re-assessed for adequacy to receive sedatives. The heart rate, respiratory rate, oxygen saturations, blood pressure, adequacy of pulmonary ventilation, and response to care were monitored throughout the procedure. The physical status of the patient was re-assessed after the procedure. After obtaining informed consent, the endoscope was passed under direct vision. Throughout the procedure, the patient's blood pressure, pulse, and oxygen saturations were monitored continuously. The Endoscope was introduced through the mouth, and advanced to the third part of the duodenum. Small bowel enteroscopy was deemed necessary. The upper GI endoscopy was accomplished without difficulty. The patient tolerated the procedure well. Scope In: 6:40:21 AM Scope Out: 6:47:27 AM Total Procedure Duration Time 0 hours 7 minutes 6 seconds Findings: The Z-line was irregular and was found 39 cm from the incisors. Biopsies were taken with a cold forceps for histology. Verification of patient identification for the specimen was done. Estimated blood loss was minimal. Patchy mild inflammation characterized by congestion (edema) and erythema was found in the stomach. Biopsies were taken with a cold forceps for histology. Verification of patient identification for the specimen was done. Estimated blood loss was minimal. Biopsies were taken with a cold forceps for Helicobacter pylori testing. Verification of patient identification for the specimen was done. Estimated blood loss was minimal. Patchy mildly erythematous mucosa without active bleeding and with no stigmata of bleeding was found in the first portion of the duodenum, in the second portion of the duodenum and in the third portion of the duodenum. Biopsies were taken with a cold forceps for histology. Verification of patient identification for the specimen was done. Estimated blood loss was minimal. Impression: - Z-line irregular, 39 cm from the incisors. Biopsied. - Bile gastritis. Biopsied. - Erythematous duodenopathy. Biopsied. Recommendation: - Discharge patient to home. - Resume previous diet. - Continue present medications. - Await pathology results. - Repeat upper endoscopy for surveillance. - Return to GI office. Procedure Code(s): --- Professional --- 86296, Small intestinal endoscopy, enteroscopy beyond second portion of duodenum, not including ileum; with biopsy, single or multiple CPT copyright 2021 [employer]. All rights reserved. The codes documented in this report are preliminary and upon icd 9 coder review may be revised to meet current compliance requirements. Soto Taylor DO 12/15/2024 7:03:14 AM This report has been signed electronically. Number of Addenda: 0 Note Initiated On: 12/15/2024 6:16 AM
[2024-12-15 07:05] VITALS: BP 117/70; BP 143/60; PULSE 66; RESP 16; TEMP 36.2; O2SAT 97
[2024-12-15 07:15] VITALS: BP 143/60
--- NOTE | 2024-12-15 08:38 | POSTOPAN2_ITS ---
Anesthesia Postop Eval I Sum Postop Eval Completion status Anesthesia document: Postop Eval 1 completed: Yes Anesthesia Postop Eval I Summary Anesthesia Postop Eval I Summary: Anesthesia Postop Eval I: Assessment Summary Airway patent Yes 12/15/24 06:55 LEAD SECTION [email or web address] Spontaneous unlabored Yes 12/15/24 06:55 LEAD SECTION [email or web address].CSIR respirations Mental status nausea No 12/15/24 06:55 LEAD SECTION SUPERVISOR.CSIR Vomiting No 12/15/24 06:55 LEAD SECTION SUPERVISOR.CSIR Anesthesia Postop Eval I: Fluid Summary Crystalloid volume administer 10 12/15/24 06:55 LEAD SECTION SUPERVISOR.CSIR (ml) Colloids volume administered ( ml) Blood Product volume administered (ml) Total IV fluid infused 10 12/15/24 06:55 LEAD SECTION [email or web address].CSIR Anesthesia Postop Eval I: Summary Notes Anesthesia Complication No 12/15/24 06:55 LEAD SECTION SUPERVISOR.CSIR Anesthesia Complication Comment: Post-operative progress note Anesthesia: Postop Eval II Evaluation Mental status: Awake Pain Level: 0 nausea: No Vomiting: No
--- NOTE | 2024-12-15 08:38 | PCM.POSTANE2 ---
Anesthesia Postop Eval I Sum Postop Eval Completion status Anesthesia document: Postop Eval 1 completed: Yes Anesthesia Postop Eval I Summary Anesthesia Postop Eval I Summary: Anesthesia Postop Eval I: Assessment Summary Airway patent Yes 12/15/24 06:55 NO BAKE MOLDER.CSIR Spontaneous unlabored Yes 12/15/24 06:55 NO BAKE MOLDER.CSIR respirations Mental status nausea No 12/15/24 06:55 NO BAKE MOLDER.CSIR Vomiting No 12/15/24 06:55 NO BAKE MOLDER.CSIR Anesthesia Postop Eval I: Fluid Summary Crystalloid volume administer 10 12/15/24 06:55 NO BAKE MOLDER.CSIR (ml) Colloids volume administered ( ml) Blood Product volume administered (ml) Total IV fluid infused 10 12/15/24 06:55 NO BAKE MOLDER.CSIR Anesthesia Postop Eval I: Summary Notes Anesthesia Complication No 12/15/24 06:55 NO BAKE MOLDER.CSIR Anesthesia Complication Comment: Post-operative progress note Anesthesia: Postop Eval II Evaluation Mental status: Awake Pain Level: 0 nausea: No Vomiting: No
== END 2024-12-15 07:20 | disposition home or self-care (01) ==
LOC: EN 05:19 → AC 05:20
PROVIDERS: PCP Physician Assistant; Referring Provider Physician Assistant; Visit Provider Internal Medicine Gastroenterology
PROC: 0DJ08ZZ Inspection of Upper Intestinal Tract, Via Natural or Artificial Opening Endoscopic (ICD-10-PCS; CPT 43235; principal; 2024-12-15 06:25)
DX: K29.70 Gastritis, unspecified, without bleeding (principal); K50.90 Crohn's disease, unspecified, without complications; K21.9 Gastro-esophageal reflux disease without esophagitis; Z90.710 Acquired absence of both cervix and uterus; E78.5 Hyperlipidemia, unspecified; K57.30 Diverticulosis of large intestine without perforation or abscess without bleeding; Z79.82 Long term (current) use of aspirin; K76.0 Fatty (change of) liver, not elsewhere classified; Z86.16 Personal history of COVID-19; Z90.49 Acquired absence of other specified parts of digestive tract; K59.1 Functional diarrhea
CPT/HCPCS: 44361; 88305; 88342; A4216; J2405

== ENCOUNTER → 2024-12-20 | Outpatient (CLI) | payer OTHER, SELFPAY ==
--- NOTE | 2024-12-20 15:00 | BI_ITS ---
EXAM: SCRN MAMM (CAD)W/DESTINY BILAT 12/20/2024 CLINICAL HISTORY: F, Age 49 y/o , SCREENING MAMMOGRAM FOR BREAST CANCER BREAST CANCER RISK ASSESSMENT: Has not been calculated. TECHNIQUE: Bilateral screening digital breast tomosynthesis with 2D images. Computer aided detection. COMPARISON: Prior exam(s) dated 12/07/2023 and 12/03/2022. FINDINGS: TISSUE DENSITY: The breast tissue is heterogenously dense, which may obscure small masses. Bilateral Breast Mammographic Findings:.. There are no other dominant masses, areas of architectural distortion, or suspicious calcifications. Benign round microcalcifications are seen in both breasts. BI/SCRN MAMM (CAD)W/DESTINY BILAT IMPRESSION: Right Breast: BIRADS 2 BENIGN FINDING. Left Breast: BIRADS 2 BENIGN FINDING. OVERALL FINAL ASSESSMENT: BIRADS 2 BENIGN FINDING RECOMMENDATION: Routine annual follow-up in 1 Year A letter with findings and recommendations will be mailed to the patient. Reading Location: [id number]
== END | disposition home or self-care (01) ==
LOC: OPBI 14:39
PROVIDERS: PCP Physician Assistant; Referring Provider Obstetrics & Gynecology; Visit Provider Obstetrics & Gynecology
DX: Z12.31 Encounter for screening mammogram for malignant neoplasm of breast (principal)
CPT/HCPCS: 77063; 77067

== ENCOUNTER → 2024-12-29 | Outpatient (CLI) | payer OTHER, SELFPAY ==
[2024-12-30 16:08] LABS: Deamidated Gliadin IgA 2 units (0-19); Deamidated Gliadin IgG 2 units (0-19); Endomysial Antibody IgA Negative (Negative); Immunoglobulin A 104 mg/dL (87-352); t-Transglutaminase IgA <2 U/mL (0-3)
== END | disposition home or self-care (01) ==
LOC: LAB 08:56
PROVIDERS: PCP Physician Assistant; Visit Provider Internal Medicine Gastroenterology
DX: K21.9 Gastro-esophageal reflux disease without esophagitis (principal)
CPT/HCPCS: 36415; 82784; 83516; 86255

== ENCOUNTER → 2024-12-31 | Outpatient (CLI) | payer OTHER, SELFPAY ==
[2024-12-31 09:17] LABS: ALB/GLOB Ratio 1.5 RATIO (0.9-2.4); AST(SGOT) 16 U/L (<=31); Alanine Aminotransfer ALT/SGPT 7 U/L (<=34); Alkaline Phosphatase 60 U/L (35-104); Anion Gap 9 (5-15); BUN 12 mg/dL (4-19); BUN/Creat Ratio 18.4 RATIO (10-20); CRP 3.36 mg/L (0.0-3.0); Carbon Dioxide 24.4 mmol/L (21.0-32.0); Chloride 105 mmol/L (98-108); Cholesterol 165 mg/dL (<=200); Creatinine, Serum 0.66 mg/dL (0.70-1.20); EST Glomerular Filtration Rate 108 (>60); Globulin 2.6 g/dL (2.2-4.2); Glucose 88 mg/dL (70-99); High Density Lipoprotein 68 mg/dL; Low Density Lipoprotein Calc. 82 mg/dL; Potassium 4.1 mmol/L (3.3-5.1); Protein, Total 6.6 g/dL (5.9-8.4); Sodium Level 138 mmol/L (133-145); Total Bilirubin 0.46 mg/dL (0.00-1.30); Triglycerides 75 mg/dL; Very Low Density Lipoprotein 15 mg/dL (5-40); cholesterol:hdl ratio screen 2.43
[2024-12-31 09:30] LABS: Erythrocyte Sedimentation Rate 8 mm/hr (0-30)
[2024-12-31 09:32] LABS: Absolute Lymphocyte Count 1.28 X10^3/uL (0.83-4.51); Absolute Neutrophil Count 1.8 X10^3/uL (2.0-7.7); Basophil# 0.04 X10^3/uL; Basophil% 1.1 % (0-1); Eosinophil# 0.18 X10^3/uL; Hematocrit 37.9 % (37-47); Hemoglobin 12.2 g/dL (12.0-15.0); Lymphocyte # 1.28 X10^3/ul (0.83-4.51); Lymphocyte % 35.3 % (19-41); Mean Corp Hgb Conc 32.2 g/dL (32-36); Mean Corpuscular Hgb 29.1 pg (27.0-32.0); Mean Corpuscular Volume 90.5 fL (81-99); Monocyte# 0.37 X10^3/uL; Monocyte% 10.2 % (0-10); NRBC Flagged by Analyzer 0 % (0-5); Neutrophil # 1.76 X10^3/uL (2.7-7.7); Neutrophil % 48.4 % (47-70); Platelet Count 205 K/mm3 (150-450); RBC Distribution Width CV 14.2 % (11.6-14.6); RBC Distribution Width SD 46.6 fl (35.1-43.9); Red Blood Count 4.19 M/mm3 (4.2-5.4); White Blood Count 3.6 K/mm3 (4.4-11.0)
[2024-12-31 09:38] LABS: Vitamin B12 264 pg/mL (180-914); Vitamin D,25 Hydroxy 81.5 ng/mL (30-100)
== END | disposition home or self-care (01) ==
PROVIDERS: PCP Physician Assistant; Referring Provider Registered Nurse; Visit Provider Registered Nurse
DX: D64.9 Anemia, unspecified (principal); M05.79 Rheumatoid arthritis with rheumatoid factor of multiple sites without organ or systems involvement; Z13.1 Encounter for screening for diabetes mellitus; E78.5 Hyperlipidemia, unspecified; E53.8 Deficiency of other specified B group vitamins; E55.9 Vitamin D deficiency, unspecified
CPT/HCPCS: 36415; 80053; 80061; 82306; 82607; 85025; 85652; 86140

== ENCOUNTER → 2025-01-30 | Outpatient (CLI) | payer OTHER, SELFPAY ==
[2025-01-30 09:58] LABS: Absolute Lymphocyte Count 1.46 X10^3/uL (0.83-4.51); Absolute Neutrophil Count 4.4 X10^3/uL (2.0-7.7); Basophil# 0.05 X10^3/uL; Basophil% 0.8 % (0-1); Eosinophil# 0.16 X10^3/uL; Eosinophils% 2.4 % (0-5); Hematocrit 38.4 % (37-47); Hemoglobin 12.3 g/dL (12.0-15.0); Lymphocyte # 1.46 X10^3/ul (0.83-4.51); Lymphocyte % 22.2 % (19-41); Mean Corpuscular Hgb 29.2 pg (27.0-32.0); Mean Corpuscular Volume 91.2 fL (81-99); Mean Platelet Vol. 11.6 fl (6.2-12.0); Monocyte% 7.6 % (0-10); NRBC Flagged by Analyzer 0 % (0-5); Neutrophil % 66.7 % (47-70); Platelet Count 235 K/mm3 (150-450); RBC Distribution Width CV 13.8 % (11.6-14.6); RBC Distribution Width SD 46.6 fl (35.1-43.9); Red Blood Count 4.21 M/mm3 (4.2-5.4); White Blood Count 6.6 K/mm3 (4.4-11.0)
[2025-01-30 11:08] LABS: CRP < 3.00 mg/L (0.0-3.0)
== END | disposition home or self-care (01) ==
PROVIDERS: PCP Physician Assistant; Referring Provider Physician Assistant; Visit Provider Physician Assistant
DX: D72.810 Lymphocytopenia (principal)
CPT/HCPCS: 36415; 85025; 86140

== ENCOUNTER → 2025-02-01 | Outpatient (CLI) | payer OTHER, SELFPAY ==
--- NOTE | 2025-02-01 12:16 | RAD_ITS ---
EXAM: DX wrist minimum three views CLINICAL HISTORY: Unspecified injury to right wrist, hand and fingers COMPARISON: None available TECHNIQUE: Three views right wrist, 5 total images due to permanent bracelet FINDINGS: No fracture or dislocation. The joint spaces appear within limits. Soft tissues appear within limits. RAD/Wrist min 3 Views IMPRESSION: No fracture or dislocation. Reading Location: [id number]
== END | disposition home or self-care (01) ==
LOC: RAD 12:15
PROVIDERS: PCP Physician Assistant; Referring Provider Physician Assistant; Visit Provider Physician Assistant
DX: S69.91XA Unspecified injury of right wrist, hand and finger(s), initial encounter (principal)
CPT/HCPCS: 73110

== ENCOUNTER → 2025-03-07 | Outpatient (CLI) | payer OTHER, SELFPAY ==
--- NOTE | 2025-03-07 15:45 | RAD_ITS ---
PROCEDURE: FOOT MIN 3 VIEWS 03/07/2025 REASON FOR EXAM: INFLAMMATORY ARTHRITIS TECHNIQUE: 3 views of the left foot. COMPARISON: None. FINDINGS: Small calcaneal spur formation. Enthesophyte formation at the calcaneal insertion of Achilles tendon. Normal talus, calcaneus, and tarsal bones. Normal visualized subtalar, talonavicular, calcaneocuboid, tarsal and tarsometatarsal articulations. Normal metatarsi. Normal metatarsophalangeal joint of the great toe. Normal tibial and fibular sesamoid bones. Normal interphalangeal joint of the great toe. Normal phalanges of the great toe. Normal second through fifth metatarsophalangeal joints. Normal interphalangeal joints of the lesser toes. Normal phalanges of the lesser toes. RAD/Foot min 3 Views IMPRESSION: No evidence for acute abnormality. Reading Location: [facility]
--- NOTE | 2025-03-07 15:45 | RAD_ITS ---
PROCEDURE: HAND MIN 3 VIEWS 03/07/2025 REASON FOR EXAM: INFLAMMATORYF ARTHRITIS TECHNIQUE: 3 view(s) of the left hand COMPARISON: None. FINDINGS: Normal visualized carpal bones. Normal first metacarpus. Normal second through fifth metacarpi. Normal phalanges. There is no demonstrated fracture. Normal carpal articulations. Normal carpometacarpal (CMC) articulation of the thumb. Normal metacarpophalangeal (MCP) joint of the thumb. Normal interphalangeal (IP) joint of the thumb. Normal second through fifth carpometacarpal (CMC) joints. Normal second through fifth metacarpophalangeal (MCP) joints. Normal proximal interphalangeal (PIP) and distal interphalangeal (DIP) joints of the second through fifth fingers. RAD/Hand Min 3 Views IMPRESSION: Unremarkable exam. Reading Location: [facility]
--- NOTE | 2025-03-07 15:45 | RAD_ITS ---
PROCEDURE: HAND MIN 3 VIEWS 03/07/2025 REASON FOR EXAM: INFLAMMATORYF ARTHRITIS TECHNIQUE: 3 view(s) of the right hand COMPARISON: None. FINDINGS: Normal visualized carpal bones. Normal first metacarpus. Normal second through fifth metacarpi. Normal phalanges. There is no demonstrated fracture. Normal carpal articulations. Normal carpometacarpal (CMC) articulation of the thumb. Normal metacarpophalangeal (MCP) joint of the thumb. Normal interphalangeal (IP) joint of the thumb. Normal second through fifth carpometacarpal (CMC) joints. Normal second through fifth metacarpophalangeal (MCP) joints. Normal proximal interphalangeal (PIP) and distal interphalangeal (DIP) joints of the second through fifth fingers. RAD/Hand Min 3 Views IMPRESSION: Unremarkable exam. Reading [facility]
--- NOTE | 2025-03-07 15:45 | RAD_ITS ---
PROCEDURE: FOOT MIN 3 VIEWS 03/07/2025 REASON FOR EXAM: INFLAMMATORY ARTHRITIS TECHNIQUE: 3 views of the right foot. COMPARISON: None. FINDINGS: Enthesophyte formation at the calcaneal insertion of Achilles tendon. Normal talus, calcaneus, and tarsal bones. Normal visualized subtalar, talonavicular, calcaneocuboid, tarsal and tarsometatarsal articulations. Normal metatarsi. Normal metatarsophalangeal joint of the great toe. Normal tibial and fibular sesamoid bones. Normal interphalangeal joint of the great toe. Normal phalanges of the great toe. Normal second through fifth metatarsophalangeal joints. Normal interphalangeal joints of the lesser toes. Normal phalanges of the lesser toes. RAD/Foot min 3 Views IMPRESSION: No radiographic evidence of an acute bone abnormality. Reading Location[facility]
== END | disposition home or self-care (01) ==
LOC: RAD.FUTURE 15:27
PROVIDERS: PCP Physician Assistant; Referring Provider Internal Medicine Rheumatology; Visit Provider Internal Medicine Rheumatology
DX: M19.071 Primary osteoarthritis, right ankle and foot (principal); M19.072 Primary osteoarthritis, left ankle and foot; M19.041 Primary osteoarthritis, right hand; M19.042 Primary osteoarthritis, left hand
CPT/HCPCS: 73130; 73630

== ENCOUNTER → 2025-03-08 | Outpatient (CLI) | payer OTHER, SELFPAY ==
[2025-03-08 08:54] LABS: Erythrocyte Sedimentation Rate 8 mm/hr (0-30)
[2025-03-08 08:56] LABS: Absolute Lymphocyte Count 1.48 X10^3/uL (0.83-4.51); Absolute Neutrophil Count 2.3 X10^3/uL (2.0-7.7); Basophil# 0.05 X10^3/uL; Basophil% 1.1 % (0-1); Eosinophil# 0.13 X10^3/uL; Hematocrit 38.4 % (37-47); Lymphocyte # 1.48 X10^3/ul (0.83-4.51); Lymphocyte % 33.7 % (19-41); Mean Corp Hgb Conc 31.3 g/dL (32-36); Mean Corpuscular Hgb 28.7 pg (27.0-32.0); Mean Corpuscular Volume 91.9 fL (81-99); Mean Platelet Vol. 12.4 fl (6.2-12.0); Monocyte# 0.42 X10^3/uL; Monocyte% 9.6 % (0-10); NRBC Flagged by Analyzer 0 % (0-5); Neutrophil % 52.4 % (47-70); Platelet Count 209 K/mm3 (150-450); RBC Distribution Width SD 47.5 fl (35.1-43.9); Red Blood Count 4.18 M/mm3 (4.2-5.4); White Blood Count 4.4 K/mm3 (4.4-11.0)
[2025-03-08 09:19] LABS: AST(SGOT) 17 U/L (<=31); Alanine Aminotransfer ALT/SGPT 8 U/L (<=34); Alkaline Phosphatase 63 U/L (35-104); Bilirubin, Direct 0.14 mg/dL (0.00-0.30); Creatinine, Serum 0.72 mg/dL (0.70-1.20); EST Glomerular Filtration Rate 104 (>60); Globulin 2.7 g/dL (2.2-4.2); Protein, Total 6.7 g/dL (5.9-8.4); Total Bilirubin 0.32 mg/dL (0.00-1.30)
[2025-03-08 09:34] LABS: CRP < 3.00 mg/L (0.0-3.0); Rheumatoid Factor < 10.0 IU/mL (<15)
[2025-03-08 09:56] LABS: Ferritin 18 ng/mL (22-378); Iron 50 ug/dL (50-170); Iron Binding Capacity,Total 347 ug/dL (250-450); Iron Binding Capacity,Unsat 297 ug/dL (228-428)
[2025-03-08 10:34] LABS: Vitamin B12 327 pg/mL (180-914); Vitamin D,25 Hydroxy 88.6 ng/mL (30-100)
[2025-03-09 04:07] LABS: PROGESTERONE 2.3 ng/mL (.)
[2025-03-09 12:08] LABS: CCP IgG Antibodies 15 units (0-19)
== END | disposition home or self-care (01) ==
LOC: LAB 06:56 → PAVLAB 07:30
PROVIDERS: PCP Physician Assistant; Referring Provider Specialist; Visit Provider Internal Medicine Rheumatology
DX: M19.90 Unspecified osteoarthritis, unspecified site (principal); Z79.899 Other long term (current) drug therapy; D64.9 Anemia, unspecified; R53.83 Other fatigue; N95.1 Menopausal and female climacteric states; E55.9 Vitamin D deficiency, unspecified
CPT/HCPCS: 36415; 80076; 82306; 82565; 82607; 82670; 82728; 83540; 83550; 84144; 84403; 85025; 85652; 86140; 86200; 86431

== ENCOUNTER → 2025-03-22 | Outpatient (CLI) | payer OTHER, SELFPAY | END | disposition home or self-care (01) | LOC: LABSPEC 17:22 | PROVIDERS: PCP Physician Assistant; Visit Provider Internal Medicine Gastroenterology | DX: E61.1 Iron deficiency (principal) | CPT/HCPCS: 82274 ==

== ENCOUNTER → 2025-04-18 | Outpatient (CLI) | payer OTHER, SELFPAY | END | disposition home or self-care (01) | PROVIDERS: PCP Physician Assistant; Referring Provider Obstetrics & Gynecology; Visit Provider Obstetrics & Gynecology | DX: Z15.01 Genetic susceptibility to malignant neoplasm of breast (principal); Z80.3 Family history of malignant neoplasm of breast | CPT/HCPCS: 36415 ==

== ENCOUNTER 2025-04-21 10:26 | Outpatient (CLI) | payer OTHER, SELFPAY | END 2025-04-21 23:59 | disposition home or self-care (01) | LOC: MEDOUTP 10:27 | PROVIDERS: PCP Physician Assistant; Referring Provider Obstetrics & Gynecology; Visit Provider Obstetrics & Gynecology | DX: Z00.00 Encounter for general adult medical examination without abnormal findings (principal) | CPT/HCPCS: A4216 ==

== ENCOUNTER → 2025-04-21 | Outpatient (CLI) | payer OTHER, SELFPAY ==
--- NOTE | 2025-04-21 12:15 | MRI_ITS ---
PROCEDURE: BREAST BILATERAL W/O AND W 04/21/2025 REASON FOR EXAM: DENSE BREASTS, FAM HX BREAST CA. TECHNIQUE: BREAST BILATERAL W/O AND W CONTRAST: 14 cc of Clariscan contrast COMPARISON: Mammogram studies dated 12/23/2019 and 12/07/2023 FINDINGS: TISSUE DENSITY: The breasts are heterogeneously dense, which may obscure small masses. Background Parenchymal Enhancement: Mild RIGHT Breast: No suspicious mass or non-mass enhancement. There are several benign-appearing masses in the right breast which appear to represent probable fibrocystic masses. LEFT Breast: No suspicious mass or non-mass enhancement. There are small benign-appearing masses in the left breast which appear to represent probable fibrocystic masses. Other Findings: No suspicious axillary or internal mammary lymph nodes. Visualized portions of the thoracic and abdominal viscera are unremarkable. MRI/Breast Bilateral W/O and W IMPRESSION: OVERALL FINAL ASSESSMENT BI-RADS 2: BENIGN RECOMMENDATION: Patient should return in November 2025 for routine yearly screenin g mammography. A complete bilateral breast ultrasound should also be performed at that time if she has a low lifetime risk for developing breast cancer. If she has high lifetime risk for developing breast, an MRI should be performed at that same ti sc. Reading Location: [id number]
== END | disposition home or self-care (01) ==
LOC: MRI 11:33
PROVIDERS: PCP Physician Assistant; Referring Provider Obstetrics & Gynecology; Visit Provider Obstetrics & Gynecology
DX: R92.30 Dense breasts, unspecified (principal); Z80.3 Family history of malignant neoplasm of breast
CPT/HCPCS: 77049; A9575; A4216; C8908

== ENCOUNTER → 2025-04-27 | Outpatient (CLI) | payer OTHER, SELFPAY ==
--- NOTE | 2025-04-27 13:46 | CT_ITS ---
PROCEDURE: CHEST WITHOUT CONTRAST 04/27/2025 REASON FOR EXAM: PULMONARY NODULE TECHNIQUE: Chest CT without contrast. Coronal and Sagittal reconstruction series were provided. One or more dose reduction techniques were used (e.g., Automated exposure control, adjustment of the mA and/or kV according to patient size, use of iterative reconstruction technique RADIATION DOSE SUMMARY: CTDlvol: 7.96 mGy DLP: 274.44 mGycm COMPARISON: Prior study dated April 26, 2024. FINDINGS: Hardware: None Lymph nodes: Small benign-appearing bilateral axillary lymph nodes. Heart and Vasculature: The heart is nonenlarged. Coronary Artery Calcifications: Absent Lungs and Airways: Stable scarring in the lung apices slightly more prominent on the right side. Stable 3 mm non calcified nodule in the lateral aspect of the left lung apex on image 12. Stable 4 mm noncalcified nodule in the right upper lobe. Pleura: No pleural effusion Upper Abdomen: No acute abnormality. Bones: Degenerative changes of the thoracic spine. CT/Chest without Contrast IMPRESSION: Coronary artery calcification (CAC) is is absent Stable examination. Reading Location: [id number]
== END | disposition home or self-care (01) ==
LOC: CT 13:35
PROVIDERS: PCP Physician Assistant; Referring Provider Physician Assistant; Visit Provider Physician Assistant
DX: R91.1 Solitary pulmonary nodule (principal)
CPT/HCPCS: 71250

== ENCOUNTER 2025-05-30 10:01 | Outpatient (RCR) | payer OTHER, SELFPAY ==
[2025-05-30 10:43] LABS: Hematocrit 41.9 % (37-47); Hemoglobin 13.8 g/dL (12.0-15.0); Immature Granulocytes Count 0.020 X10^3/uL (0.0-0.0); Mean Corp Hgb Conc 32.9 g/dL (32-36); Mean Corpuscular Volume 93.5 fL (81-99); Mean Platelet Vol. 11.0 fl (6.2-12.0); NRBC Flagged by Analyzer 0 % (0-5); Platelet Count 218 K/mm3 (150-450); RBC Distribution Width CV 14.1 % (11.6-14.6); RBC Distribution Width SD 49.1 fl (35.1-43.9); Red Blood Count 4.48 M/mm3 (4.2-5.4); White Blood Count 7.2 K/mm3 (4.4-11.0)
[2025-05-30 11:03] LABS: AST(SGOT) 22 U/L (<=31); Alanine Aminotransfer ALT/SGPT 14 U/L (<=34); Albumin, Serum 4.2 g/dL (3.5-5.0); Alkaline Phosphatase 55 U/L (35-104); Bilirubin, Direct 0.11 mg/dL (0.00-0.30); Globulin 2.7 g/dL (2.2-4.2)
== END 2025-06-27 23:59 ==
LOC: PAVLAB 10:01
PROVIDERS: PCP Physician Assistant; Referring Provider Dermatology; Visit Provider Dermatology
DX: Z79.899 Other long term (current) drug therapy (principal)
CPT/HCPCS: 36415; 80076; 85025

== ENCOUNTER 2025-06-01 05:44 | Day surgery (SDC) | payer OTHER, SELFPAY ==
--- NOTE | 2025-05-25 16:43 | PAT.ANESEVAL ---
Pre-Assessment Diagnosis/Proposed Procedure Planned Operative Procedure(s): colonoscopy Anesthesia History Anesthesia History - supervisor chemical: Anesthesia History - supervisor chemical Hx Hospitalization No 05/25/25 14:29 Any Problems With Anesthesia Yes: ponv 05/25/25 14:29 Cholinesterase deficiency No 05/25/25 14:29 You/Your Family Experience No 05/25/25 14:29 fever (hyperthermia) with Relationship Recent Exposure to Contagious No 12/15/24 05:44 Disease Does patient have nerve No 05/25/25 14:29 stimulator Patient instructed to have device shut off --Does patient have Pacemaker or ICD? When Was Last Pacemaker Check QUESTION #4 FULL TEXT: You/Your Family Experience fever (hyperthermia) with Anesthesia Last Oral Intake Last Oral intake: Last Oral Intake NPO since Meds taken in AM with sips of water? Meds patient instructed to take am of surgery PONV PONV - supervisor chemical: PONV - supervisor chemical Female Yes 05/25/25 14:29 HX of Motion Sickness Yes 05/25/25 14:29 HX of N/V After Surgery Yes 05/25/25 14:29 Non-Smoker Yes 05/25/25 14:29 Duration of Surgery greater No 05/25/25 14:29 than 60 minutes Number of Risk Factors 4 05/25/25 14:29 PONV Score Severe Risk 05/25/25 14:29 Height & Weight Height & Weight: Anesthesia: Height & Weight Height 5 ft 6 in 03/30/25 07:36 Respiratory Assessment Respiratory Assessment - supervisor chemical: Respiratory Tract Infection Hx - supervisor chemical Hx Respiratory Tract Infection No 05/25/25 14:29 STOP Sleep Apnea STOP Sleep Apnea - supervisor chemical: STOP Sleep Apnea - supervisor chemical Hx Hypertension No 05/25/25 14:29 Hx Sleep Apnea No 05/25/25 14:29 CPAP BIPAP Do you snore loudly (louder No 05/25/25 14:29 than talking or can be heard Do you often feel tired/ No 05/25/25 14:29 fatigued/ sleepy during daytime? Has anyone observed you stop No 05/25/25 14:29 breathing during sleep? STOP Results Negative 05/25/25 14:29 QUESTION #5 FULL TEXT : Do you snore loudly (louder than talking or can be heard through closed doors)? Tobacco Use History Tobacco Use History - supervisor chemical: Tobacco Use History - supervisor chemical Tobacco Use Non-smoker 04/08/24 14:09 Smoking Status Never smoker 05/25/25 14:29 Hx Tobacco Use No 05/25/25 14:29 Years Smoking Packs Smoked per Day Smoking Cessation Date was within the last 15 years Hx Smoking Cessation Date Hx Smoking Cessation No 05/25/25 14:29 Counseling Hematologic Medial History Hematologic Hx - supervisor chemical: Hematologic Medical Hx - cushion padder Hx of Blood Transfusion No 05/25/25 14:29 Hx of Transfusion in last 3 No 05/25/25 14:29 Months Date of Last Transfusion (if within last 3 months) Ever experience any problems No 05/25/25 14:29 with transfusion(s)? Specify any problems Hx of Preganancy in last 3 No 05/25/25 14:29 Months Nurse Filling Out Transfusion JZOLLINGE 05/25/25 14:29 & Questions: Date: 05/25/25 05/25/25 14:29 Time: 14:30 05/25/25 14:29 Patient unable to answer at this time (ie. confused, unrespo /Reproduction History /Reproductive History - supervisor chemical: /Reproductive Hx- supervisor chemical Hx Now No 05/25/25 14:29 Gestational Age (in weeks): EDC: Hx Hx Para Hx Section SAB No 05/25/25 14:29 PFSH Medical History (Updated 04/13/25 @ 15:[address] Valera Friend, DO) Iron deficiency Depression History of steroid therapy Easy bruising Shortness of breath on exertion Crohn's disease Non-smoker Genetic testing of female Leukopenia Anemia Instability of left patellofemoral joint Stiffness of left knee Left knee pain Wears glasses Post-menopausal Anxiety Arthritis Rheumatoid arthritis Migraine headache History of hiatal hernia Gastric reflux History of echocardiogram History of stress test Cardiology follow-up encounter COVID-19 virus detected (10/01/20) Inflammatory polyarthritis Fibromyalgia Herpes labialis Patent foramen ovale Hyperlipidemia IBS (irritable bowel syndrome) Home Medications ?Medication ?Instructions ?Recorded ?Last Taken ?Type acyclovir 400 mg tablet 400 mg PO DAILY PRN cold sore 04/07/16 08/15/17 History loperamide 2 mg capsule 4 mg PO DAILY diarrhea 04/07/16 12/14/24 History leflunomide 10 mg tablet 10 mg PO DAILY RA 11/25/20 12/14/24 History gabapentin 300 mg capsule 300 mg PO QHS PRN pain, mild 06/05/23 Unknown History ondansetron 4 mg disintegrating 4 mg PO Q8H PRN PRN Nausea #14 tabs 09/03/23 Unknown Rx tablet cetirizine 10 mg tablet 10 mg PO DAILY allergy 11/15/23 12/14/24 History alprazolam 0.5 mg tablet 0.5 mg PO DAILY anxiety 06/06/24 12/14/24 History ubrogepant 50 mg tablet (Ubrelvy) 50 mg PO DAILY PRN headache #16 08/10/24 Unknown Rx tabs dicyclomine 20 mg tablet 20 mg PO TID PRN abdominal pain 12/13/24 Unknown History ergocalciferol (vitamin D2) 1,250 1,250 mcg PO QWEEK 12/13/24 12/14/24 History mcg (50,000 unit) capsule fluoxetine 20 mg capsule 20 mg PO QHS 12/13/24 12/14/24 History colestipol 1 gram tablet 1 g PO ONCE #30 tabs 01/05/25 Unknown Rx aspirin 81 mg tablet,delayed 81 mg PO DAILY #90 tabs 01/13/25 Unknown Rx release (Adult Aspirin Regimen) pantoprazole 40 mg tablet,delayed 40 mg PO ONCE #60 TABLETS 02/17/25 Unknown Rx release progesterone micronized 100 mg 100 mg PO QAM 03/13/25 Unknown History capsule terbinafine HCl 250 mg tablet 250 mg PO QDAY 03/13/25 Unknown History fremanezumab-vfrm 225 mg/1.5 mL 225 mg (1.5 mL) subcut QMONTH #1.5 03/29/25 Unknown Rx subcutaneous auto-injector (Ajovy) mL sod picosulf 10 mg-magnes 3.5 175 ml PO ONCE 1 dose #350 mL 04/13/25 Unknown Rx gram-citric 12 gram/175 mL oral solution (Clenpiq) budesonide 3 mg 3 mg PO DAILY bowel #90 ea 04/24/25 Unknown Rx capsule,delayed,extended release topiramate 25 mg tablet 25 mg PO QDAY #30 tabs 05/04/25 Unknown Rx Allergy/AdvReac Type Severity Reaction Status Date / Time morphine Allergy Other Verified 05/25/25 14:22 rimegepant ([facility]) Allergy dizzy & Verified 05/25/25 14:22 nausea bacitracin (From Neosporin AdvReac Rash Verified 05/25/25 14:22 ([id number])) metoclopramide (From Reglan) AdvReac Other Verified 05/25/25 14:22 metronidazole (From Flagyl) AdvReac Nausea Verified 05/25/25 14:22 neomycin (From Neosporin AdvReac Rash Verified 05/25/25 14:22 ([id number])) polymyxin B (From Neosporin AdvReac Rash Verified 05/25/25 14:22 ([id number])) sucralfate (From Carafate) AdvReac Nausea Verified 05/25/25 14:22 Family History (Updated 04/17/25 @ 16:50 by Kirstie Correa) Grandmother Uterine cancer Breast cancer Paternal grandmother Uncle Lung cancer Grandfather Prostate cancer Sister Migraine Surgical History (Updated 05/25/25 @ 14:29 by Aracelis Herbert) History of esophagogastroduodenoscopy (EGD) History of tonsillectomy and adenoidectomy H/O LEEP History of right salpingo-oophorectomy Hx of foot surgery History of tonsillectomy History of cholecystectomy History of hysterectomy Social History household members: family housing: house current occupational status: employed current occupation: [employer] [place] [employer] current occupational exposures/hazards: No pets and animals: No sexually active: Yes Smoking Status: Never smoker alcohol intake: never substance use type: does not use caffeine: Yes seatbelt use: always Audit: Pertinent Findings Pertinent Findings EKG Perinent findings: 11/15/2023. Normal sinus rhythm. Possible left atrial enlargement. Stress test pertinent findings: 08/21/2017. Normal stress test. Patient achieved 10.1 METS. Echo (EF%) pertinent findings: 11/16/2023. EF of 65%. No aortic stenosis noted. Consult pertinent findings: 12/26/2020. Dr. Gonzalez. 1. Patent foramen ovale-unclear whether this played any role in her history of TIA. Patient is started on 325 aspirin for 6 months then 81 mg/day. Recommendation Anesthesia Recommendation Anesthesia recommendation: OPTIMIZED for anesthesia
[2025-06-01] VITALS (8 sets, daily range): BP systolic 110–129; BP diastolic 70–83; PULSE 59–74; RESP 16; TEMP 36.9–37.1; O2SAT 64–100; BMI 24.7
[2025-06-01] MEDS: Lactated Ringers 1,000 ML 15 ML IV (06:15)
--- NOTE | 2025-06-01 06:30 | COLBX_PTH ---
PATIENT: DERICK SCHUSTER LOC: PATI U#:[id number] AGE/SX: 49/F ROOM: RE06/01/[address]: Dr. Soto Taylor DO : 1975 BED: DIS: 06/01/2025 SPEC #: [id number] RECD: 06/01/25 10:29 STATUS: KWADWO ANIYAH #: [id number] MARCELINA: 06/01/25 06:[address]: Soto Taylor DEPT: SURGICAL PATHOLOGY RECD BY: Paco Yost ENTERED: 06/01/25 14:23 SP TYPE: COLON BX OTHR DR: STEFANI Nixon Tissues: A - Ileum, NOS B - COLON BIOPSY Procedures: Surgery Specimen Level IV HEADER OPERATION: Colonoscopy with biopsy PRE-OP DIAGNOSIS: Fecal occult with + stools, anemia, Crohn's TISSUE SUBMITTED: A- Terminal ileum biopsy, B- Random colon biopsy MICROSCOPIC DIAGNOSIS A. Terminal ileum, biopsy: - Prominent mucosal lymphoid tissue, favor reactive. B. Colon, random, biopsy: - Mildly active chronic inflammation. - No granulomas or dysplasia seen. MICROSCOPIC DESCRIPTION Slides are reviewed. GROSS DESCRIPTION A. Received in fixative is one container labeled with the patient's name and designated Terminal ileum biopsy. The specimen consists of multiple irregular fragments of light steen soft tissue that in aggregate measure 1 x 0.5 x 0.1 cm. The specimen is totally submitted in one cassette. B. Received in fixative is one container labeled with the patient's name and designated Random colon biopsy. The specimen consists of five irregular fragments of light steen soft tissue that measure <0.1 to 0.4 cm. Smallest fragment may not survive processing. The specimen is totally submitted in one cassette. DC 06/01/2025 CPT:97135r9
--- NOTE | 2025-06-01 06:31 | HP.PCM_ITS ---
HPI - General General Date of Admission: 06/01/25 Date of Service: 06/01/25 Chief Complaint: fecal occult + stools, Anemia and Crohns HPI Narrative DERICK SCHUSTER, is a 49 F who presents fecal occult + stools, Anemia and Crohns She was previously scheduled for Teddy to address reflux disease but cancelled due to emotional state. [facility] ED presentation 01.17.21 for severe epigastric pain. Lipase found to be eleva michelle at 2221 and subsequently lowered to 706 later that day (78.0 on 07.30.21); suspected to be r/t keto diet. Prior workup: US RUQ ([facility]) 02.15.21 normal pancreas with obscured tail; normal liver; prior cholecystectomy; normal biliary dilation. EGD 04.19.21 with slight reactive gastropathy noted; duodenal mucosa without alteration. Severe bile reflux of stomach and significant hemorrhagic gastritis. Gastric emptying study ([facility]) .12.16 normal rate of gastric emptying with 83% retention at one hour. And 1% retained at 4hours. Stool 11.03.18 elastase normal >800. Upper GI series ([facility]) 08.06.21 found small sliding hiatal hernia; gastroesop hageal reflux to above level of geovani. 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 History of C.Diff antigen positive which she reports as occurring 4-5 times with previous provider discussing FMT, thought antigen has only been positive and not actually an infection. Biochemical workup CMP, CRP, LDH, ESR, CARLOS comp, ANCA, celiac, GAME, TAMMY. Crohn?s prognostic not indicative of IBD (AMCA+), IBD expanded panel WNL. Eosinophils H6.4 Stool? C.Diff and enteric pathogens WNL EGD and colonoscopy 04.30.22. EGD found irregular Zline 37cm from incisors; gastritis. H.Pylori negative. Colonoscopy found congested mucosa of RS and sigmoid colon; diverticulosis of RS and sigmoid colon. Ileum WNL. Stool study enteric pathogen and C.Diff WNL. OV 05.14.22 recommend capsule endoscopy Capsule endoscopy 06.13.22 noting gastritis with ulcerations in the stomach. Recommend biochemical workup, PPI and continue colestipol Recommend biochemical workup CRP, ESR, H.Pylori, gastrin. ? Biochemical workup CRP, ESR, H.pylori, gastrin without pertinent abnormality. OV 08.20.22 biochemical workup. Continue protonix and transition to famotidine. Biochemical workup RAST, Anti-parietal cell, intrinsic factor without pertinent abnormality. Stool testing lactoferrin, calprotectin, giardia, ova/parasite WNL. Contact 08.27.22 Doing well overall. Continues to have intermittent, shortly lived, focal abdominal pain OV 09.30.22 Biochemical workup. Start pancreatic enzymes. ? Biochemical workup IBD profile, hgb, TIBC, iron sat, VIT B12, Folate without pertinent abnormality. ? Uric acid L2.3, iron L48 Contact with symptoms. ? Lactose tolerance test: Glucose 1,2,3,4,5 WNL ? Biochemical anti-parietal cell ab, intrinsic factor WNL ? MREnterography 07.04.23 circumferential wall thickening and mucosal hyperenhancement; multiple short segment areas of narrowing of transverse colon, likely contractions. Contact 07.07.23 Start budesonide ? Stool .02.17 (PCP) C.Difficile PCR +, toxin/antigen negative. [facility] ED 09.03.23 with loose stools for a week, PCP recommended IV hydration at ED. Recent use of ATB for sinusitis. Discharged with bentyl/prednisone. Contact 09.04.23 as ED follow up. Stools are orange and mucus-like. She did not start budesonide, will start 09.17.23 in case the budesonide makes her ill. OV 04.15.24 Pt here with c/o of irregular BM. Sometimes BM are hard as rocks and sometimes loose. She is wondering if she needs a CT, weight loss medication, and FLMA paperwork. Pt continues on Budesonide 3mg, pantoprazole 40mg daily and Zofran prn. OV 1.16.25 pt reports continued symptoms from previous visit, continues to have alternating bowel movements. Pt reports that sometimes pantoprazole helps, sometimes it doesn't. Pt reports increased stress in personal life. Pt wonders if she should have an elastography due to father and sister's enlarged livers. US and elastography 10.19.24 hepatic measurement 14.5cm with fatty infiltration, stiffness measures 3.4kPa compatible with F_-F_ Metavir score. EGD 12.15.24 Z-line irregular, 39 cm from the incisors. Biopsied. Bile gastritis. Biopsied. Erythematous duodenopathy. Biopsied. Stool 6.25.25 + fecal occult OV 7.17.25 pt reports continued symptoms of alternating bowel movements, intermittent abdominal pain, and HB. Pt states that Dr Cameron wants to start her on a new medication for her headaches; pt is unsure which medication. pt would like to discuss plan of care. [facility] Medical History Iron deficiency Depression History of steroid therapy Easy bruising Shortness of breath on exertion Crohn's disease Non-smoker Genetic testing of female Leukopenia Anemia Instability of left patellofemoral joint Stiffness of left knee Left knee pain Wears glasses Post-menopausal Anxiety Arthritis Rheumatoid arthritis Migraine headache History of hiatal hernia Gastric reflux History of echocardiogram History of stress test Cardiology follow-up encounter COVID-19 virus detected (10/01/20) Inflammatory polyarthritis Fibromyalgia Herpes labialis Patent foramen ovale Hyperlipidemia IBS (irritable bowel syndrome) Home Medications ?Medication ?Instructions ?Recorded ?Last Taken ?Type acyclovir 400 mg tablet 400 mg PO DAILY PRN cold sor e 04/07/16 05/31/25 History loperamide 2 mg capsule 4 mg PO DAILY diarrhea 04/0712/14/24 History leflunomide 10 mg tablet 10 mg PO DAILY RA 11/25/20 0 05/31/25 History gabapentin 300 mg capsule 300 mg PO QHS PRN pain, mild 06/05/23 05/31/25 History ondansetron 4 mg disintegrating 4 mg PO Q8H PRN PRN Na usea #14 tabs 09/03/23 05/31/25 Rx tablet cetirizine 10 mg tablet 10 mg PO DAILY allergy 11/1505/31/25 History alprazolam 0.5 mg tablet 0.5 mg PO DAILY anxiety 06/2105/31/25 History ubrogepant 50 mg tablet (Ubrelvy) 50 mg PO DAILY PRN h eadache #16 08/10/24 05/31/25 Rx tabs dicyclomine 20 mg tablet 20 mg PO TID PRN abdominal p ain 12/13/24 05/31/25 History ergocalciferol (vitamin D2) 1,250 1,250 mcg PO QWEEK 0 12/13/24 05/31/25 History mcg (50,000 unit) capsule fluoxetine 20 mg capsule 20 mg PO QHS 12/13/24 History colestipol 1 gram tablet 1 g PO ONCE #30 tabs 5 05/31/25 Rx aspirin 81 mg tablet,delayed 81 mg PO DAILY #90 tabs 0 01/13/25 05/31/25 Rx release (Adult Aspirin Regimen) pantoprazole 40 mg tablet,delayed 40 mg PO ONCE #60 TA BLETS 02/17/25 05/31/25 Rx release progesterone micronized 100 mg 100 mg PO QAM 03/13/25 05/31/25 History capsule terbinafine HCl 250 mg tablet 250 mg PO QDAY 03/13/25 05/31/25 History fremanezumab-vfrm 225 mg/1.5 mL 225 mg (1.5 mL) subcut QMONTH #1.5 03/29/25 Unknown Rx subcutaneous auto-injector (Ajovy) mL sod picosulf 10 mg-magnes 3.5 175 ml PO ONCE 1 dose #3 50 mL 04/13/25 05/31/25 Rx gram-citric 12 gram/175 mL oral solution (Clenpiq) budesonide 3 mg 3 mg PO DAILY bowel #90 ea 0 04/24/25 05/31/25 Rx capsule,delayed,extended release topiramate 25 mg tablet 25 mg PO QDAY #30 tabs 05/0405/31/25 Rx Allergy/AdvReac Type Severity Reaction Status Date / Time morphine Allergy Other Verified 05/25/25 14:22 [facility] dizzy & Verified 05/25/25 14:22 nausea bacitracin (From Neosporin AdvReac Rash Verified 05/25/25 14:22 ([id number])) metoclopramide (From Reglan) AdvReac Other Verified 05/25/25 14:22 metronidazole (From Flagyl) AdvReac Nausea Verified 05/25/25 14:22 neomycin (From Neosporin AdvReac Rash Verified 05/25/25 14:22 ([id number])) polymyxin B (From Neosporin AdvReac Rash Verified 05/25/25 14:22 ([id number])) sucralfate (From Carafate) AdvReac Nausea Verified 05/25/25 14:22 Family History Grandmother Uterine cancer Breast cancer Paternal grandmother Uncle Lung cancer Grandfather Prostate cancer Sister Migraine Surgical History History of esophagogastroduodenoscopy (EGD) History of tonsillectomy and adenoidectomy H/O LEEP History of right salpingo-oophorectomy Hx of foot surgery History of tonsillectomy History of cholecystectomy History of hysterectomy Social History household members: family housing: house current occupational status: employed current occupation: [employer] current occupational exposures/hazards: No pets and animals: No sexually active: Yes Smoking Status: Never smoker alcohol intake: never substance use type: does not use caffeine: Yes seatbelt use: always ROS Constitutional Constitutional: Denies fatigue, fever(s), poor appetite, weight gain or weight loss Gastrointestinal Gastrointestinal: Denies belching, bloating, change in bowel habits, change in stool character, chewing difficulty, coffee ground emesis, constipation, cramping, diarrhea, dyspepsia, dysphagia, early satiety, excessive flatus, fecal incontinence, heartburn, hematemesis, hematochezia, hemorrhoids, loose stools, melena, nausea, odynophagia, rectal bleeding, tenesmus, vomiting or weight changes Vital Signs Vital Signs Vital Signs: 06/01/25 06:05 06/01/25 06:05 Temperature 98.8 F Temperature Source Temporal Pulse Rate 74 Respiratory Rate 16 Respiratory Pattern Normal Blood Pressure 129/83 H Blood Pressure Mean 98 Blood Pressure Source Monitor Blood Pressure Position Semi-Fowlers Blood Pressure Location Left Arm Pulse Ox 100 Oxygen Delivery Method Room Air Weight Weight: 153 lb Body Mass Index (BMI) 24.7 Physical Exam Const alert, oriented x3, no apparent distress and healthy appearing General Appearance: cooperative GI normal to inspection, nondistended, normoactive bowel sounds, soft to palpation, non-tender and non-distended Percussion: normal to percussion Rectal Exam: deferred Assessment & Plan Assessment/Plan (1) Fecal occult blood test positive: (2) Crohn's disease: PLAN: Assessment and Plan Assessment and Plan (1) Fatty (change of) liver, not elsewhere classified: Status: Acute Plan: She was noted to have heterogeneous liver on previous examination of the abdomen with a CT scan of the abdomen pelvis back in 2022. We will get an ultrasound with elastography to quantify any steatosis in the liver and if there is any degree of fibrosis. (2) Crohn's disease: Status: Acute Comment: ON PO MEDS Plan: Her symptoms are a lot better with the budesonide therapy. However it is make her constipated so we decreased it to 3 mg a day. Currently she is off the budesonide. Her inflammatory markers do not show any sign of acute or chronic inflammation in her fecal calprotectin is within normal limits at this time. (3) Gastritis: Status: Chronic Qualifiers: Gastritis type: unspecified gastritis Chronicity: chronic Gastritis bleeding: without bleeding Qualified Code(s): K29.50 - Unspecified chronic gastritis without bleeding Plan: Gastritis likely secondary to bile gastritis without H. pylori positive. She treated with pantoprazole and transition to famotidine. We will switch her to 20 mg p.o. twice daily because she is getting some breakthrough symptoms at night. (4) Diarrhea: Status: Chronic Qualifiers: Diarrhea type: functional diarrhea Qualified Code(s): K59.1 - Functional diarrhea Plan: The differential diagnosis for chronic diarrhea at this time does include postinfectious IBS, small bacterial overgrowth and less likely exocrine pancreatic insufficiency. Awaiting stool studies for further recommendations. Underwent She MRI enterography showed lobular inflammation consistent with an enteritis with the differential diagnosis being infectious, postinfectious or inflammatory bowel disease. We gave her budesonide to treat the inflammation was seen on her MRI. However she did not start the medicine yet. She did go to the emergency room because she developed some abdominal pain and it did show a possible focal ileus due to mild dilation of the small bowel secondary to infection or possible inflammatory bowel disease. She said that she would start budesonide now she is off of work for a few days. Hopefully this will cause some improvement in her symptoms. (5) GERD (gastroesophageal reflux disease): Status: Acute Comment: Not controlled with meds' Plan: Her gastroesophageal reflux disease was controlled medicines but she has become refractory. We will perform an upper endoscopy because she has never had 1 in the past to evaluate her upper GI tract. (6) Non-celiac gluten sensitivity: Status: Acute Plan: A. Duodenum, biopsy: - Normal villous architecture with increased intraepithelial lymphocytes ? see note. - Wilfrid gland hyperplasia. Note: This pattern of injury is etiologically nonspecific and the differential diagnosis includes sensitivity to gluten and non-gluten proteins, small intestinal bacterial overgrowth, stasis related changes, infection, protein calorie malnutrition, tropical sprue, and medication injury (NSAIDs, Olmesartan / Benicar, Mycophenolic acid, Idelalisib, for example). If celiac disease is a clinical concern, additional clinical studies, such as tTG-IgA, are recommended (7) Fecal occult blood test positive: Status: Acute Plan: Iron deficiency without anemia. Her ferritin is really low. She has fecal positive stool so she will undergo colonoscopy.
--- NOTE | 2025-06-01 06:32 | PCM.PRE.AN2 ---
ASA Classification* ASA Classification ASA Classification: 3 Assessment & Plan Anesthesia* Anesthesia Assessment Anesthesia Assessment: Discussed sedation and/or anesthesia options, risks, benefits, and alternatives with patient/parents/legal guardian/POA. Questions invited. The patient/parents/legal guardian/POA seems to understand and agrees to proceed with anesthesia plan. Reviewed the physical assessment, medical history, allergy history and patient home medications list prior to surgery/procedure/anesthetic and documented any changes. Performed airway and anesthesia risk assessments. Anesthesia Type Anesthesia Type: MAC History Source History Obtained from:: Patient and Chart Anesthesia Focused Assessment* Temperature: 98.8 F Pulse Rate: 74 Blood Pressure: 129/83 Respiratory Rate: 16 Pulse Ox: 100 Oxygen Delivery Method: Room Air Airway Assessment Mouth opens: >3 cm Mallampati Score: I Teeth Condition: Intact Neck Range of motion (ROM): Full ROM Labs Anesthesia Preop lab: CBC WBC 7.2 K/mm3 (4.4-11.0) 05/30/25 10:35 05/30/25 RBC 4.48 M/mm3 (4.2-5.4) 05/30/25 10:35 05/30/25 Hgb 13.8 g/dL (12.0-15.0) 05/30/25 10:35 05/30/25 Hct 41.9 % (37-47) 05/30/25 10:35 05/30/25 Plt Count 218 K/mm3 (150-450) 05/30/25 10:35 05/30/25 CHEMISTRY Potassium 4.1 mmol/L (3.3-5.1) 12/31/24 08:25 12/31/24 Sodium 138 mmol/L (133-145) 12/31/24 08:25 12/31/24 Magnesium 2.2 mg/dL (1.6-2.6) 10/13/23 11:18 10/13/23 Phosphorus 3.1 mg/dL (2.5-4.9) 07/03/23 09:34 07/03/23 BUN 12 mg/dL (4-19) 12/31/24 08:25 12/31/24 Creatinine 0.72 mg/dL (0.70-1.20) 03/08/25 08:17 03/08/25 Glucose 88 mg/dL (70-99) 12/31/24 08:25 12/31/24 POC Glucose 91 mg/dL (74-106) 11/15/23 09:58 11/15/23 TSH 2.01 uIU/mL (0.358-3.74) 04/01/23 12:17 04/01/23 COAG PT 13.6 SECONDS (11.7-14.9) 07/18/24 10:49 07/18/24 Pre-Assessment Diagnosis/Proposed Procedure Planned Operative Procedure(s): colonoscopy Anesthesia History 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 When Was Last Pacemaker Check QUESTION #4 FULL TEXT: You/Your Family Experience fever (hyperthermia) with Anesthesia Last Oral Intake Last Oral intake: Last Oral Intake NPO since 02:30 06/01/25 06:05 Meds taken in AM with sips of No 06/01/25 06:05 water? Meds patient instructed to take am of surgery Any additional information?: Yes NPO since: 02:30 (Patient finished prep at 2:30 AM.) Meds taken in AM with sips of water?: No PONV PONV - exhaust emissions inspector: PONV - exhaust emissions inspector Female Yes 05/25/25 14:29 HX of Motion Sickness Yes 05/25/25 14:29 HX of N/V After Surgery Yes 05/25/25 14:29 Non-Smoker Yes 05/25/25 14:29 Duration of Surgery greater No 05/25/25 14:29 than 60 minutes Number of Risk Factors 4 05/25/25 14:29 PONV Score Severe Risk 05/25/25 14:29 Height & Weight Height & Weight: Anesthesia: Height & Weight Height 5 ft 6 in 06/01/25 06:05 Weight: 69.4 kg 06/01/25 06:05 Body Mass Index (BMI) 24.7 06/01/25 06:05 Respiratory Assessment Respiratory Assessment - exhaust emissions inspector: Respiratory Tract Infection Hx - exhaust emissions inspector Hx Respiratory Tract Infection No 05/25/25 14:29 STOP Sleep Apnea STOP Sleep Apnea - exhaust emissions inspector: STOP Sleep Apnea - exhaust emissions inspector Hx Hypertension No 05/25/25 14:29 Hx Sleep Apnea No 05/25/25 14:29 CPAP BIPAP Do you snore loudly (louder No 05/25/25 14:29 than talking or can be heard Do you often feel tired/ No 05/25/25 14:29 fatigued/ sleepy during daytime? Has anyone observed you stop No 05/25/25 14:29 breathing during sleep? STOP Results Negative 05/25/25 14:29 QUESTION #5 FULL TEXT : Do you snore loudly (louder than talking or can be heard through closed doors)? 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 Specify any problems Hx of Preganancy in last 3 No 05/25/25 14:29 Months Nurse Filling Out Transfusion JZOLLINGE 05/25/25 14:29 & Questions: Date: 05/25/25 05/25/25 14:29 Time: 14:30 05/25/25 14:29 Patient unable to answer at this time (ie. confused, unrespo /Reproduction History /Reproductive History - exhaust emissions inspector: /Reproductive Hx- exhaust emissions inspector Hx Now No 05/25/25 14:29 Gestational Age (in weeks): EDC: Hx Hx Para Hx Section SAB No 05/25/25 14:29 Active Medications Active Medications: Current Medications Generic Name Dose Route Start Last Admin Trade Name Freq PRN Reason Stop Dose Admin Lactated Ringer's 1,000 mls @ 15 mls/hr 06/01/25 06:15 06/01/25 06:15 IV 15 mls/hr .Q48H DARSHAN Administration PFSH Medical History Iron deficiency Depression History of steroid therapy Easy bruising Shortness of breath on exertion Crohn's disease Non-smoker Genetic testing of female Leukopenia Anemia Instability of left patellofemoral joint Stiffness of left knee Left knee pain Wears glasses Post-menopausal Anxiety Arthritis Rheumatoid arthritis Migraine headache History of hiatal hernia Gastric reflux History of echocardiogram History of stress test Cardiology follow-up encounter COVID-19 virus detected (10/01/20) Inflammatory polyarthritis Fibromyalgia Herpes labialis Patent foramen ovale Hyperlipidemia IBS (irritable bowel syndrome) Home Medications ?Medication ?Instructions ?Recorded ?Last Taken ?Type acyclovir 400 mg tablet 400 mg PO DAILY PRN cold sore 04/07/16 05/31/25 History loperamide 2 mg capsule 4 mg PO DAILY diarrhea 04/07/16 12/14/24 History leflunomide 10 mg tablet 10 mg PO DAILY RA 11/25/20 05/31/25 History gabapentin 300 mg capsule 300 mg PO QHS PRN pain, mild 06/05/23 05/31/25 History ondansetron 4 mg disintegrating 4 mg PO Q8H PRN PRN Nausea #14 tabs 09/03/23 05/31/25 Rx tablet cetirizine 10 mg tablet 10 mg PO DAILY allergy 11/15/23 05/31/25 History alprazolam 0.5 mg tablet 0.5 mg PO DAILY anxiety 06/06/24 05/31/25 History ubrogepant 50 mg tablet (Ubrelvy) 50 mg PO DAILY PRN headache #16 08/10/24 05/31/25 Rx tabs dicyclomine 20 mg tablet 20 mg PO TID PRN abdominal pain 12/13/24 05/31/25 History ergocalciferol (vitamin D2) 1,250 1,250 mcg PO QWEEK 12/13/24 05/31/25 History mcg (50,000 unit) capsule fluoxetine 20 mg capsule 20 mg PO QHS 12/13/24 05/31/25 History colestipol 1 gram tablet 1 g PO ONCE #30 tabs 01/05/25 05/31/25 Rx aspirin 81 mg tablet,delayed 81 mg PO DAILY #90 tabs 01/13/25 05/31/25 Rx release (Adult Aspirin Regimen) pantoprazole 40 mg tablet,delayed 40 mg PO ONCE #60 TABLETS 02/17/25 05/31/25 Rx release progesterone micronized 100 mg 100 mg PO QAM 03/13/25 05/31/25 History capsule terbinafine HCl 250 mg tablet 250 mg PO QDAY 03/13/25 05/31/25 History fremanezumab-vfrm 225 mg/1.5 mL 225 mg (1.5 mL) subcut QMONTH #1.5 03/29/25 Unknown Rx subcutaneous auto-injector (Ajovy) mL sod picosulf 10 mg-magnes 3.5 175 ml PO ONCE 1 dose #350 mL 04/13/25 05/31/25 Rx gram-citric 12 gram/175 mL oral solution (Clenpiq) budesonide 3 mg 3 mg PO DAILY bowel #90 ea 04/24/25 05/31/25 Rx capsule,delayed,extended release topiramate 25 mg tablet 25 mg PO QDAY #30 tabs 05/04/25 05/31/25 Rx Allergy/AdvReac Type Severity Reaction Status Date / Time morphine Allergy Other Verified 05/25/25 14:22 rimegepant (From [facility] ODT) Allergy dizzy & Verified 05/25/25 14:22 nausea bacitracin (From Neosporin AdvReac Rash Verified 05/25/25 14:22 ([id number])) metoclopramide (From Reglan) AdvReac Other Verified 05/25/25 14:22 metronidazole (From Flagyl) AdvReac Nausea Verified 05/25/25 14:22 neomycin (From Neosporin AdvReac Rash Verified 05/25/25 14:22 ([id number])) polymyxin B (From Neosporin AdvReac Rash Verified 05/25/25 14:22 ([id number])) sucralfate (From Carafate) AdvReac Nausea Verified 05/25/25 14:22 Family History Grandmother Uterine cancer Breast cancer Paternal grandmother Uncle Lung cancer Grandfather Prostate cancer Sister Migraine Surgical History History of esophagogastroduodenoscopy (EGD) History of tonsillectomy and adenoidectomy H/O LEEP History of right salpingo-oophorectomy Hx of foot surgery History of tonsillectomy History of cholecystectomy History of hysterectomy Social History household members: family housing: house current occupational status: employed current occupation: [employer] current occupational exposures/hazards: No pets and animals: No sexually active: Yes Smoking Status: Never smoker alcohol intake: never substance use type: does not use caffeine: Yes seatbelt use: always Review of Systems (Anesthesia) ROS Narrative System reviewed and no additional complaints, except as documented.
--- NOTE | 2025-06-01 07:21 | PCM.POST.ANE ---
Anesthesia: Postop Eval I Current Vital Signs Temperature: 98.5 F Pulse Rate: 64 Blood Pressure: 113/73 Respiratory Rate: 16 Pulse Ox: 64 Oxygen Delivery Method: Room Air Assessment Airway patent: Yes Spontaneous unlabored respirations: Yes Mental status: Awake and Calm nausea: No Vomiting: No Anesthesia Complication: No Fluid Hydration Crystalloid volume administer (ml): 500 Total IV fluid infused: 500 Progress Note Anesthesia document: Postop Eval 1 completed: Yes
--- NOTE | 2025-06-01 07:24 | OP.COLON_ITS ---
Patient Name: Carol Grissom Procedure Date: 06/01/2025 6:16 AM Date of : 1975 Age: 49 Procedure: Colonoscopy Indications: Heme positive stool, Iron deficiency anemia, Crohn's disease of the small bowel Providers: Soto Taylor DO Referring MD: Michi Nixon Medicines: Monitored Anesthesia Care Patient Profile: This is a 49 year old female. Refer to note in patient chart for documentation of history and physical. Last Colonoscopy: within the past 3 years. Complications: No immediate complications. Procedure: Pre-Anesthesia Assessment: - Prior to the procedure, a History and Physical was performed, and patient medications and allergies were reviewed. The patient is competent. The risks and benefits of the procedure and the sedation options and risks were discussed with the patient. All questions were answered and informed consent was obtained. Patient identification and proposed procedure were verified by the physician in the pre-procedure area. Mental Status Examination: alert and oriented. Airway Examination: normal oropharyngeal airway and neck mobility. Respiratory Examination: clear to auscultation. CV Examination: normal. ASA Grade Assessment: II - A patient with mild systemic disease. After reviewing the risks and benefits, the patient was deemed in satisfactory condition to undergo the procedure. The anesthesia plan was to use monitored anesthesia care (MAC). Immediately prior to administration of medications, the patient was re-assessed for adequacy to receive sedatives. The heart rate, respiratory rate, oxygen saturations, blood pressure, adequacy of pulmonary ventilation, and response to care were monitored throughout the procedure. The physical status of the patient was re-assessed after the procedure. After I obtained informed consent, the scope was passed under direct vision. Throughout the procedure, the patient's blood pressure, pulse, and oxygen saturations were monitored continuously. The colonoscope was introduced through the anus and advanced to the terminal ileum. The colonoscopy was performed without difficulty. The patient tolerated the procedure well. The quality of the bowel preparation was poor. The terminal ileum, ileocecal valve, appendiceal orifice, and rectum were photographed. Scope In: 6:59:10 AM Scope Withdrawal Time 0 hours 8 minutes 8 seconds Scope Out: 7:12:26 AM Total Procedure Duration Time 0 hours 13 minutes 16 seconds Findings: The perianal and digital rectal examinations were normal. Non-bleeding internal hemorrhoids were found during retroflexion. The hemorrhoids were Grade I (internal hemorrhoids that do not prolapse). Stool was found in the entire colon. Biopsies were taken with a cold forceps for histology. Verification of patient identification for the specimen was done. Estimated blood loss was minimal. Patchy mild inflammation characterized by erythema was found in the terminal ileum. Biopsies were taken with a cold forceps for histology. Verification of patient identification for the specimen was done. Estimated blood loss was minimal. Impression: - Preparation of the colon was poor. - Non-bleeding internal hemorrhoids. - Stool in the entire examined colon. Biopsied. - Mild inflammation was found in the ileum secondary to ileitis. Biopsied. Recommendation: - Discharge patient to home. - Resume previous diet. - Continue present medications. - Await pathology results. - Repeat colonoscopy in 2 years for surveillance based on pathology results. Procedure Code(s): --- Professional --- 15332, Colonoscopy, flexible; with biopsy, single or multiple CPT copyright 2021 [employer]. All rights reserved. The codes documented in this report are preliminary and upon shell maker lockstitch review may be revised to meet current compliance requirements. Soto Taylor DO 06/01/2025 7:23:00 AM This report has been signed electronically. Number of Addenda: 0 Note Initiated On: 06/01/2025 6:16 AM
--- NOTE | 2025-06-01 07:24 | OP.PROVAT_ITS ---
06/01/2025 Michi Nixon Re : Colonoscopy procedure for Carol Grissom Dear Ruthann This procedure was performed on May. My impressions and recommendations are as follows: Impressions : - Preparation of the colon was poor. - Non-bleeding internal hemorrhoids. - Stool in the entire examined colon. Biopsied. - Mild inflammation was found in the ileum secondary to ileitis. Biopsied. Recommendations : - Discharge patient to home. - Resume previous diet. - Continue present medications. - Await pathology results. - Repeat colonoscopy in 2 years for surveillance based on pathology results. My findings are described in the full procedure note, which is enclosed. If I can be of further assistance, please feel free to contact me at . Sincerely, Soto Taylor, 06/01/2025 7:23:00 AM This report has been signed electronically.
--- NOTE | 2025-06-01 15:16 | PCM.POSTANE2 ---
Anesthesia Postop Eval I Sum Postop Eval Completion status Anesthesia document: Postop Eval 1 completed: Yes Anesthesia Postop Eval I Summary Anesthesia Postop Eval I Summary: Anesthesia Postop Eval I: Assessment Summary Airway patent Yes 06/01/25 07:21 [email or web address] Spontaneous unlabored Yes 06/01/25 07:21 [email or web address] respirations Mental status Awake,Calm 06/01/25 07:21 [email or web address] nausea No 06/01/25 07:21 [email or web address] Vomiting No 06/01/25 07:21 [email or web address] Anesthesia Postop Eval I: Fluid Summary Crystalloid volume administer 500 06/01/25 07:21 [email or web address] (ml) Colloids volume administered ( ml) Blood Product volume administered (ml) Total IV fluid infused 500 06/01/25 07:21 [email or web address] Anesthesia Postop Eval I: Summary Notes Anesthesia Complication No 06/01/25 07:21 [email or web address] Anesthesia Complication Comment: Post-operative progress note Anesthesia: Postop Eval II Evaluation Mental status: Awake and Calm Pain Level: 0 nausea: No Vomiting: No Complications Anesthesia Complication: No
== END 2025-06-01 08:01 | disposition home or self-care (01) ==
LOC: EN 05:45 → AC 05:46
PROVIDERS: PCP Physician Assistant; Referring Provider Physician Assistant; Visit Provider Internal Medicine Gastroenterology
PROC: 0DJD8ZZ Inspection of Lower Intestinal Tract, Via Natural or Artificial Opening Endoscopic (ICD-10-PCS; CPT 45378; principal; 2025-06-01 06:25)
DX: K50.00 Crohn's disease of small intestine without complications (principal); K64.0 First degree hemorrhoids; D50.9 Iron deficiency anemia, unspecified; R19.5 Other fecal abnormalities; K90.41 Non-celiac gluten sensitivity; K76.0 Fatty (change of) liver, not elsewhere classified; K21.9 Gastro-esophageal reflux disease without esophagitis; E78.5 Hyperlipidemia, unspecified; Z79.82 Long term (current) use of aspirin; Z79.899 Other long term (current) drug therapy
CPT/HCPCS: 45380; 88305; J2405

== ENCOUNTER → 2025-06-06 | Outpatient (CLI) | payer OTHER, SELFPAY ==
--- NOTE | 2025-06-06 06:55 | CT_ITS ---
PROCEDURE: LIMITED CHEST CT CARDIAC ONLY 06/06/2025 REASON FOR EXAM: SCREENING FOR CARDIOVASCULAR DISORDER TECHNIQUE: CT performed for coronary artery calcification scoring. One or more dose reduction techniques were used (e.g., Automated exposure control, adjustment of the mA and/or kV according to patient size, use of iterative reconstruction technique). RADIATION DOSE SUMMARY: CTDlvol: 12.19 mGy DLP: 219.42 mGycm COMPARISON: Chest CT of 04/27/2025 CT/Limited Chest CT Cardiac Only IMPRESSION: Limited imaging of the lungs demonstrates no acute process. No pleural effusion or pneumothorax is seen in visualized areas. No adenopathy is noted. The visualized upper abdomen demonstrates no significant abnormality. Reading Location: [place] [id number]
[2025-06-06 09:12] LABS: Vitamin D,25 Hydroxy 112.0 ng/mL (30-100)
[2025-06-07 04:07] LABS: PROGESTERONE 1.7 ng/mL (.)
--- NOTE | 2025-06-15 07:37 | CA.SCORE ---
Calcium Scoring Date of Study:: 06/06/25 Indications Indications: Screening Coronary Calcium Scoring: High-resolution Computed Tomographic imaging of the chest was performed on [06/06/2025], with particular attention paid to the coronary arteries. Images from the examination were analyzed for the presence and extent of coronary artery calcification , using coronary calcium quantification software. The patient tolerated the procedure well and there were no complications. The results of the coronary calcification analysis are provided below. Findings Coronary Artery Left Main (LM): 0 Left Anterior Descending (LAD): 0 Left Circumflex (LCX): 0 Right Coronary Artery (RCA): 0 Total Agatston Score: 0 Percentile Rankin Calcium Scoring Interpretation: Different methods to categorize the overall amount of coronary plaque. Overall amount CAC SIS Visual of coronary plaque P1 Mild -100 <2 1-2 vessels with mild amount of plaque P2 Moderate 101-300 3-4 1-2 vessels with moderate amount, 3 vessels with mild amount of plaque P3 Severe 301-999 5-7 3 vessels with moderate amount, 1 vessel with severe amount of plaque P4 Extensive >1000 >8 2-3 vessels with severe amount of plaque Conclusion: No atherosclerotic plaquing noted
== END | disposition home or self-care (01) ==
PROVIDERS: Specialist; PCP Physician Assistant; Referring Provider Physician Assistant; Visit Provider Physician Assistant
DX: N95.1 Menopausal and female climacteric states (principal); E55.9 Vitamin D deficiency, unspecified; Z13.6 Encounter for screening for cardiovascular disorders
CPT/HCPCS: 36415; 75571; 76380; 82306; 82670; 84144; 84403

== ENCOUNTER → 2025-06-12 | Outpatient (CLI) | payer OTHER, SELFPAY ==
[2025-06-12 10:07] LABS: HIV Nonreactive (Nonreactive); Hepatitis B Surface Antigen Nonreactive (Nonreactive); Hepatitis C Antibody Nonreactive (Nonreactive); Syphilis Antibodies Nonreactive (Nonreactive)
== END | disposition home or self-care (01) ==
PROVIDERS: PCP Physician Assistant; Referring Provider Obstetrics & Gynecology; Visit Provider Obstetrics & Gynecology
DX: Z11.3 Encounter for screening for infections with a predominantly sexual mode of transmission (principal)
CPT/HCPCS: 36415; 86695; 86696; 86703; 86780; 86803; 87340

== ENCOUNTER → 2025-06-22 | Outpatient (CLI) | payer OTHER, SELFPAY ==
[2025-06-24 10:08] LABS: Chlamydia By Nucleic Acid AMP Negative (Negative); Gonococcus By Nucleic Acid AMP Negative (Negative)
[2025-06-29 07:07] LABS: HPV APTIMA, High Risk Positive (Negative); HPV Genotype 16, Aptima Negative (Negative); HPV Genotype 18,45 Aptima Negative (Negative)
== END | disposition home or self-care (01) ==
LOC: LABSPEC 12:22
PROVIDERS: PCP Physician Assistant; Referring Provider Obstetrics & Gynecology; Visit Provider Obstetrics & Gynecology
DX: Z20.2 Contact with and (suspected) exposure to infections with a predominantly sexual mode of transmission (principal); Z12.4 Encounter for screening for malignant neoplasm of cervix
CPT/HCPCS: 87491; 87591; 87624; 88175; G0145

== ENCOUNTER 2025-06-28 07:56 | Outpatient (RCR) | payer OTHER, SELFPAY ==
[2025-06-28 08:07] LABS: Hematocrit 41.0 % (37-47); Hemoglobin 13.4 g/dL (12.0-15.0); Immature Granulocytes Count 0.020 X10^3/uL (0.0-0.0); Mean Corp Hgb Conc 32.7 g/dL (32-36); Mean Corpuscular Volume 94.0 fL (81-99); Mean Platelet Vol. 11.8 fl (6.2-12.0); NRBC Flagged by Analyzer 0 % (0-5); Platelet Count 203 K/mm3 (150-450); RBC Distribution Width CV 13.5 % (11.6-14.6); RBC Distribution Width SD 47.0 fl (35.1-43.9); Red Blood Count 4.36 M/mm3 (4.2-5.4); White Blood Count 5.5 K/mm3 (4.4-11.0)
[2025-06-28 08:57] LABS: AST(SGOT) 14 U/L (<=31); Alanine Aminotransfer ALT/SGPT 9 U/L (<=34); Albumin, Serum 3.8 g/dL (3.5-5.0); Alkaline Phosphatase 45 U/L (35-104); Bilirubin, Direct 0.12 mg/dL (0.00-0.30); Globulin 2.3 g/dL (2.2-4.2)
== END 2025-07-28 23:59 ==
LOC: PAVLAB 07:56
PROVIDERS: PCP Physician Assistant; Referring Provider Dermatology; Visit Provider Dermatology
DX: Z79.899 Other long term (current) drug therapy (principal)
CPT/HCPCS: 36415; 80076; 85025

== ENCOUNTER → 2025-07-03 | Outpatient (CLI) | payer OTHER, SELFPAY ==
[2025-07-06 04:07] LABS: QNTFERON TB Mitogen Value > 10.00 IU/mL (.); QNTFERON TB Nil Value 0.10 IU/mL (.); QNTFERON TB1+ Ag Value 0.10 IU/mL (.); QNTFERON TB2+ Ag Value 0.11 IU/mL (.); QNTIFERON TB Positive Criteria Negative (Negative)
== END | disposition home or self-care (01) ==
LOC: LAB 07:10
PROVIDERS: PCP Physician Assistant; Referring Provider Internal Medicine Gastroenterology; Visit Provider Internal Medicine Gastroenterology
DX: K50.90 Crohn's disease, unspecified, without complications (principal)
CPT/HCPCS: 36415; 86480

== ENCOUNTER → 2025-07-06 | Outpatient (CLI) | payer OTHER, SELFPAY ==
[2025-07-06 08:57] LABS: Vitamin D,25 Hydroxy 78.3 ng/mL (30-100)
== END | disposition home or self-care (01) ==
LOC: LAB 06:48 → PAVLAB 07:45
PROVIDERS: PCP Physician Assistant; Referring Provider Nurse Practitioner Family; Visit Provider Nurse Practitioner Family
DX: E55.9 Vitamin D deficiency, unspecified (principal)
CPT/HCPCS: 36415; 82306

== ENCOUNTER 2025-08-04 09:15 | Outpatient (CLI) | payer OTHER, SELFPAY ==
[2025-08-04 09:44] VITALS: BMI 25.2
[2025-08-04 09:55] VITALS: BP 120/75; PULSE 82; RESP 16; TEMP 36.9; O2SAT 96; BMI 25.2
[2025-08-04] MEDS: 0.9% NaCl IVPB Med Flush (100mL) 15 ML IV (10:19)
[2025-08-04] MEDS: 0.9% NaCl Peripheral Flush Adult IV (10:20)
== END 2025-08-04 23:59 | disposition home or self-care (01) ==
LOC: MEDOUTP 09:15
PROVIDERS: PCP Physician Assistant; Referring Provider Internal Medicine Gastroenterology; Visit Provider Internal Medicine Gastroenterology
DX: K50.90 Crohn's disease, unspecified, without complications (principal)
CPT/HCPCS: 96413; 96415; A4216; Q5103

== ENCOUNTER → 2025-08-08 | Outpatient (CLI) | payer OTHER, SELFPAY ==
--- NOTE | 2025-08-08 06:59 | BD_ITS ---
PROCEDURE: DEXA BONE DENSITY STUDY 08/08/2025 REASON FOR EXAM: BONE DENSITY SCREENING F, age 49 y/o . Screening bone density.. TECHNIQUE: Procedure Code: BDDBD Modality: DX Procedure: DEXA BONE DENSITY STUDY COMPARISON: August 04, 2023. FINDINGS: BMD and T-SCORES Lumbar spine: 0.928 g/cm2, T-score -0.8 Levels: L1 through L4 Change from prior: Loss of 2.7%. Left femoral neck: 0.669 g/cm2, T-score -1.6 Femoral neck comparison data not recommended for monitoring change. Left total hip: 0.823 g/cm2, T-score -1.0 Change from prior: Improvement of 3.7%. Right femoral neck: 0.743 g/cm2, T-score -1.0 Femoral neck comparison data not recommended for monitoring change. Right total hip: 0.861 g/cm2, T-score -0.7 Change from prior: Improvement of 9.2%. The World Health Organization has defined the following categories based on bone density: Normal bone density: T-score equal to or greater than -1.0 Osteopenia: T-score between -1.0 and -2.5 Osteoporosis: T-score equal to or less than -2.5 FRAX (or Comparable) Fracture Risk Assessment: 10 Year Probability of Fracture: Major Osteoporotic Fracture: 31% Hip Fracture: 2.5% (Note: FRAX is not to be reported in setting of normal range bone density, osteoporosis on DEXA, known history of osteoporosis, prior osteoporotic hip or vertebral fracture, or for any patient undergoing pharmacological treatment for bone loss.) The National Osteoporosis Foundation (NOF) recommends pharmacological treatment for patients with a FRAX 10-year risk of 3% or higher for a hip fracture, or 20% or higher for a major osteoporotic fracture, to prevent osteoporosis and reduce fracture risk. The patient does meet the pharmacological treatment recommendations for prevention of osteoporosis. BD/Dexa Bone Density Study IMPRESSION: OSTEOPENIA. Recommend follow-up as clinically warranted. Reading Location: [id number]
== END | disposition home or self-care (01) ==
LOC: OPBD 06:55
PROVIDERS: PCP Physician Assistant; Referring Provider Obstetrics & Gynecology; Visit Provider Obstetrics & Gynecology
DX: Z13.820 Encounter for screening for osteoporosis (principal)
CPT/HCPCS: 77080

== ENCOUNTER → 2025-08-14 | Outpatient (CLI) | payer OTHER, SELFPAY ==
[2025-08-14 09:43] LABS: Hematocrit 41.7 % (37-47); Hemoglobin 13.4 g/dL (12.0-15.0); Immature Granulocytes Count 0.020 X10^3/uL (0.0-0.0); Mean Corp Hgb Conc 32.1 g/dL (32-36); Mean Corpuscular Volume 95.4 fL (81-99); Mean Platelet Vol. 11.4 fl (6.2-12.0); NRBC Flagged by Analyzer 0 % (0-5); Platelet Count 216 K/mm3 (150-450); RBC Distribution Width CV 13.2 % (11.6-14.6); RBC Distribution Width SD 46.6 fl (35.1-43.9); Red Blood Count 4.37 M/mm3 (4.2-5.4); White Blood Count 5.6 K/mm3 (4.4-11.0)
[2025-08-14 10:21] LABS: AST(SGOT) 17 U/L (<=31); Alanine Aminotransfer ALT/SGPT 12 U/L (<=34); Albumin, Serum 4.0 g/dL (3.5-5.0); Alkaline Phosphatase 45 U/L (35-104); Bilirubin, Direct 0.14 mg/dL (0.00-0.30); Globulin 3.1 g/dL (2.2-4.2); Vitamin B12 302 pg/mL (180-914)
[2025-08-14 10:31] LABS: CRP < 3.00 mg/L (0.0-3.0)
== END | disposition home or self-care (01) ==
PROVIDERS: PCP Physician Assistant; Referring Provider Internal Medicine Rheumatology; Visit Provider Internal Medicine Rheumatology
DX: M19.90 Unspecified osteoarthritis, unspecified site (principal); Z79.899 Other long term (current) drug therapy; R53.83 Other fatigue
CPT/HCPCS: 36415; 80076; 82565; 82607; 85025; 85652; 86140

== ENCOUNTER 2025-08-18 08:57 | Outpatient (CLI) | payer OTHER, SELFPAY ==
[2025-08-18 09:09] VITALS: BP 125/77; PULSE 69; RESP 16; TEMP 35.9; O2SAT 99; BMI 25.1
[2025-08-18] MEDS: 0.9% NaCl Peripheral Flush Adult IV (09:27)
== END 2025-08-18 23:59 | disposition home or self-care (01) ==
LOC: MEDOUTP 08:57
PROVIDERS: PCP Physician Assistant; Referring Provider Internal Medicine Gastroenterology; Visit Provider Internal Medicine Gastroenterology
DX: K50.90 Crohn's disease, unspecified, without complications (principal)
CPT/HCPCS: 96413; 96415; A4216; Q5103

== ENCOUNTER 2025-08-28 08:58 | Outpatient (RCR) | payer OTHER, SELFPAY ==
[2025-08-28 09:33] LABS: Hematocrit 42.5 % (37-47); Hemoglobin 13.6 g/dL (12.0-15.0); Immature Granulocytes Count 0.010 X10^3/uL (0.0-0.0); Mean Corp Hgb Conc 32.0 g/dL (32-36); Mean Corpuscular Volume 94.9 fL (81-99); Mean Platelet Vol. 11.5 fl (6.2-12.0); NRBC Flagged by Analyzer 0 % (0-5); Platelet Count 182 K/mm3 (150-450); RBC Distribution Width CV 13.2 % (11.6-14.6); RBC Distribution Width SD 46.2 fl (35.1-43.9); Red Blood Count 4.48 M/mm3 (4.2-5.4); White Blood Count 4.5 K/mm3 (4.4-11.0)
[2025-08-28 10:04] LABS: AST(SGOT) 24 U/L (<=31); Alanine Aminotransfer ALT/SGPT 19 U/L (<=34); Albumin, Serum 4.0 g/dL (3.5-5.0); Alkaline Phosphatase 39 U/L (35-104); Bilirubin, Direct 0.17 mg/dL (0.00-0.30); Globulin 2.5 g/dL (2.2-4.2)
== END 2025-09-27 23:59 ==
LOC: PAVLAB 08:58
PROVIDERS: PCP Physician Assistant; Referring Provider Dermatology; Visit Provider Dermatology
DX: Z79.899 Other long term (current) drug therapy (principal)
CPT/HCPCS: 36415; 80076; 85025

== ENCOUNTER → 2025-09-02 | Outpatient (CLI) | payer OTHER, SELFPAY ==
[2025-09-02 06:58] LABS: Vitamin D,25 Hydroxy 58.3 ng/mL (30-100)
[2025-09-03 07:07] LABS: PROGESTERONE 2.6 ng/mL (.)
== END | disposition home or self-care (01) ==
PROVIDERS: PCP Physician Assistant; Visit Provider Nurse Practitioner Family
DX: E55.9 Vitamin D deficiency, unspecified (principal); N95.1 Menopausal and female climacteric states
CPT/HCPCS: 36415; 82306; 82670; 84144; 84403